=== PATIENT | female | born 1995 | race Caucasian/White ===

== ENCOUNTER → 2024-06-09 | Outpatient (CLI) | payer MEDICAID, SELFPAY ==
[2024-06-09 14:30] LABS: Protein, Urine (Random) 14.1 mg/dL (<11.9); Protein:Creat Ratio 84 mg/g CRE (0-200)
[2024-06-13 06:06] LABS: Chlamydia By Nucleic Acid AMP Negative (Negative); Gonococcus By Nucleic Acid AMP Negative (Negative)
== END | disposition home or self-care (01) ==
PROVIDERS: Visit Provider Advanced Practice Midwife
DX: O99.210 Obesity complicating pregnancy, unspecified trimester (principal); O26.899 Other specified pregnancy related conditions, unspecified trimester; R00.0 Tachycardia, unspecified; Z11.3 Encounter for screening for infections with a predominantly sexual mode of transmission; Z3A.00 Weeks of gestation of pregnancy not specified
CPT/HCPCS: 82570; 84156; 87086; 87491; 87591

== ENCOUNTER 2024-08-04 10:01 | Outpatient (CLI) | payer MEDICAID, SELFPAY ==
[2024-08-04 12:20] LABS: Absolute Lymphocyte Count 2.39 X10^3/uL (0.83-4.51); Absolute Neutrophil Count 7.2 X10^3/uL (2.0-7.7); Basophil# 0.04 X10^3/uL; Basophil% 0.4 % (0-1); Hematocrit 32.9 % (37-47); Hemoglobin 10.6 g/dL (12.0-15.0); Lymphocyte # 2.39 X10^3/ul (0.83-4.51); Lymphocyte % 22.8 % (19-41); Mean Corp Hgb Conc 32.2 g/dL (32-36); Mean Corpuscular Hgb 28.4 pg (27.0-32.0); Mean Corpuscular Volume 88.2 fL (81-99); Mean Platelet Vol. 10.4 fl (6.2-12.0); Monocyte# 0.79 X10^3/uL; Monocyte% 7.5 % (0-10); NRBC Flagged by Analyzer 0 % (0-5); Neutrophil # 7.15 X10^3/uL (2.7-7.7); Platelet Count 285 K/mm3 (150-450); RBC Distribution Width CV 14.4 % (11.6-14.6); RBC Distribution Width SD 46.3 fl (35.1-43.9); Red Blood Count 3.73 M/mm3 (4.2-5.4); White Blood Count 10.5 K/mm3 (4.4-11.0)
[2024-08-04 13:21] LABS: HIV Nonreactive (Nonreactive); Hepatitis B Surface Antigen Nonreactive (Nonreactive); Hepatitis C Antibody Nonreactive (Nonreactive); Rubella IgG REAC (Nonreactive); Syphilis Antibodies Nonreactive (Nonreactive)
[2024-08-04 13:27] LABS: ALB/GLOB Ratio 1.2 RATIO (0.9-2.4); AST(SGOT) 13 U/L (<=31); Alanine Aminotransfer ALT/SGPT 10 U/L (<=34); Albumin, Serum 3.6 g/dL (3.5-5.0); Alkaline Phosphatase 65 U/L (35-104); Anion Gap 12 (5-15); BUN 10 mg/dL (4-19); BUN/Creat Ratio 18.1 RATIO (10-20); Calcium,Total 8.9 mg/dL (7.6-11.0); Chloride 105 mmol/L (98-108); Creatinine, Serum 0.56 mg/dL (0.70-1.20); EST Glomerular Filtration Rate 127 (>60); Glucose 76 mg/dL (70-99); Hemoglobin A1c 5.5 % (<=5.6); Potassium 4.1 mmol/L (3.3-5.1); Protein, Total 6.6 g/dL (5.9-8.4); Sodium Level 137 mmol/L (133-145); Total Bilirubin < 0.15 mg/dL (0.00-1.30)
== END 2024-08-04 23:59 | disposition home or self-care (01) ==
LOC: BWCLAB 10:02
PROVIDERS: Referring Provider Advanced Practice Midwife; Visit Provider Advanced Practice Midwife
DX: O99.210 Obesity complicating pregnancy, unspecified trimester (principal); R00.0 Tachycardia, unspecified; Z3A.00 Weeks of gestation of pregnancy not specified
CPT/HCPCS: 36415; 80053; 83036; 85025; 86703; 86762; 86780; 86803; 86850; 86900; 86901; 87340

== ENCOUNTER 2024-08-29 13:40 | Outpatient (CLI) | payer MEDICAID, SELFPAY ==
--- NOTE | 2024-08-29 13:46 | US_ITS ---
PROCEDURE: OB LIMITED (NO BIOMETRICS) 08/29/2024 REASON FOR EXAM: BLEEDING History of low-lying placenta. TECHNIQUE: High resolution obstetric ultrasound performed using a 2D transducer. Standard views obtained, including biometry, anatomy survey, and Doppler studies. COMPARISON: None available. FINDINGS Number: 1 Position: Breech Placental Position: Posterior and not low-lying. Placental Abnormalities: No evidence of previa. ESTIMATED GESTATIONAL AGE: Baseline: 21 weeks and 3 days ESTIMATED DATE OF DELIVERY: Baseline: January 06, 2025 BIOPHYSICAL ASSESSMENT: Amniotic Fluid Volume: Normal. Amniotic Fluid Index: Within normal limits. (8-24 cm normal range) Cardiac Motion: 158 beats per minute (average) Trunk and Limb Motion: Present. US/OB Limited (No Biometrics) IMPRESSION: Posterior placenta and not low-lying. position is breech. Reading Location: [place] [id number]
[2024-08-29 13:51] VITALS: BMI 34.3
[2024-08-29 14:07] VITALS: BP 116/68; PULSE 83; RESP 16; TEMP 37.1
--- NOTE | 2024-08-29 14:36 | NURSING ---
Pt to US via wheelchair.
[2024-08-29 16:32] LABS: Bacteria 0 SEEN /hpf (None Seen); Mucous, Urine 0 SEEN /hpf (<or=2+)
[2024-08-29 17:01] LABS: Color, Urine Yellow (Yellow); Glucose, Dipstick Normal (Normal); Ketone-Dipstick Negative (Negative); Leukocyte Esterase-Dipstick 25 /ul (Negative); Nitrite-Dipstick Negative (Negative); Occult Blood-Urine 10 /ul (Negative); Protein-Dipstick Negative (Negative); Specific Gravity, Urine 1.005 (1.002-1.030); Urine Bilirubin Dipstick Negative (Negative); Urine Clarity Clear (Clear); Urine Urobilinogen Normal (Normal)
[2024-08-29 18:03] LABS: Squamous Epithelial Cells - UA 0-5 SEEN /hpf (5-10); White Blood Cells 0-5 SEEN /hpf (0-5)
--- NOTE | 2024-08-30 16:13 | OB.TRI.HP_ITS ---
HPI - General HPI Narrative AYE ZHANG, is a 29 F who presents with spotting in 21 weeks increase discharge some crmaping no fevers no uti symptoms no back pain feeling some movement. Maternal Data Information DOMONIQUE Calculator Estimated Delivery Date Method Current WG Current Estimate 01/06/25 LMP (Certain) 21w 4d PFSH PFSH Medical History Hx of abnormal cervical Pap smear Asthma Home Medications ?Medication ?Instructions ?Recorded ?Last Taken ?Type bupropion HCl 300 mg 24 hr tablet, 300 mg PO QAM 06/0908/27/24 07:00 History extended release (Wellbutrin XL) 300 m g metoprolol succinate 50 mg 50 mg PO QDAY 06/09/2407/31 07:00 History tablet,extended release 24 hr 50 mg multivit-min no.71-iron fum 28 1 cap PO DAILY 06/09/24 08/27/24 07:00 History mg-folate no.1 1 mg-dha 300 mg 1 cap capsule (PNV-[place]) Allergy/AdvReac Type Severity Reaction Status Date / Time morphine Allergy Intermediate Hives Verified 08/29/24 14:03 Family History Grandmother Cancer Maternal- Pancreatic ca Grandmother Breast cancer, Onset Age: 40 Paternal Mother Cancer, Onset Age: 30 cervical Surgical History H/O dilation and curettage H/O gastric sleeve History of surgical removal of ganglion cyst S/P tendon repair Social History adopted: No household members: significant other and children number of children: 3 current occupational status: employed 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 [employer] pets and animals: No history of recent travel: No sexually active: Yes Smoking Status: Never smoker alcohol intake: never substance use type: does not use well-balanced diet: daily or most days caffeine: No eating out: 1-3 times/week during the past year weight has: decreased > 10 lbs what type of physical activity do you participate in: none lupis/samaritan: None seatbelt use: sometimes do you feel safe at home: Yes additional social history: Boyfriend- Gretchen- Works at the [employer] History 4 Elective abortions Hx Para 3 Spontaneous abortions Hx # Term Pregnancies Ectopic pregnancies Hx # Pregnancies Multiple births # of living children 3 Past Pregnancies Del. Date Name GA/Weeks Outcome Route Bth Weight Infant Gen Labor Lgth Anesthesia Del Locatn Provider FOB 08/21/16 Layo 39 live - full term 9# Female epidural [facility] Dr. Aaron Almanza 05/05/19 [place] 39 live - full term 8#1oz Male none [facility] Dr. Castillo Almanza 06/06/20 Melissa 38 live - full term 9#6oz Male epidural [facility] Dr. Castillo Almanza Delivery Date: 05/05/19 Last Updated by: Christy Diaz shoulder dystocia Visit Details Expected Delivery Route/Plan Labor Preferences- CB/BF classes: [] labor support person: [] labor intervention preferences: [] pain management options preferred: [] cut cord/dad catch: [] : [] PP control planned: [] discussed possible routes of delivery and associated risks: [] special requests: [] Plans Covid status: [] Flu vaccine: [] Tdap vaccine: [] Rhogam: [] LARC form signed: [] Problem list reviewed and updated with the most current plan of care details and appropriate orders placed. Relevant counseling for the gestational age provided. Continue routine care and follow up unless otherwise noted in visit notes/problem list details OB Flowsheet Initial Weight: 203 lb Date -?-?-?-?-?-?-?-?-?-?-?-?- EGA Weight BP Urine Prot -?-?-?-?-?-?-?-?-?-?-?-?- Glucose FHR FuHt Pres Dilation -?-?-?-?-?-?-?-?-?-?-?-?- Effaced St Visit Note 06/09/24 -?-?-?-?-?-?-?-?-?-?-?-?- 9w 6d 203 lb (+0 oz) 111/73 -?-?-?-?-?-?-?-?-?-?-?-?- 175 -?-?-?-?-?-?-?-?-?-?-?-?- KW- CRL cons wit h dates. declines NIPT. on Metoprolol for elevated HR-sees cardiology PRN. 07/11/24 -?-?-?-?-?-?-?-?-?-?-?-?- 14w 3d 203 lb (+0 oz) 97/63 Negative -?-?-?-?-?-?-?-?-?-?-?-?- Negative 160 -?-?-?-?-?-?-?-?-?-?-?-?- JV- pt still nee ds new ob labs. states got them at Dr. Walker's office before she came to us. Has h/o shoulder dystocia so will need a hga1c. she will sign another ror form and if do not get it by next visit will need to do all labs a gain. no other complaints. declines nipt. anatomy scan ordered. 08/04/24 -?-?-?-?-?-?-?-?-?-?-?-?- 17w 6d 208 lb (+5 lb) 95/50 Negative -?-?-?-?-?-?-?-?-?-?-?-?- Negative 150 -?-?-?-?-?-?-?-?-?-?-?-?- SM- no vb lof go od fm no reuglar ctx SM- no vb no reuglar ctx ROS Constitutional Constitutional: Reports systems reviewed and no addt'l complaints, except as documented Gastrointestinal Gastrointestinal: Reports as per HPI Physical Exam Const alert, oriented x3 and no apparent distress HEENT Head and Scalp: normocephalic and atraumatic Neck full ROM and no lymphadenopathy Chest inspection of chest normal Resp normal respiratory effort GI GI Narrative: gravid, abdomen nontender, AGA Manual OB Exam: dilated, effaced and station NST FHR Rate Baby A Baseline: 140 Uterine Activity:: no regular Assessment & Plan (1) Spotting affecting : (2) Low lying placenta, antepartum: COMMENT: pelvic rest, US @ 28 wks (3) 21 weeks gestation of : PLAN: Plan rule out vaginal infection but cervical irritation seen, likely source of bleeding cervix closed Charges/Coding Multi Select Codes Visit Charges Office Visit/Consults: 14127 OV L3 Est 20min
== END 2024-08-29 17:55 | disposition home or self-care (01) ==
LOC: WPOUT 13:45 → WP 13:46
PROVIDERS: Referring Provider Obstetrics & Gynecology; Visit Provider Obstetrics & Gynecology
DX: O26.852 Spotting complicating pregnancy, second trimester (principal); O44.42 Low lying placenta NOS or without hemorrhage, second trimester; Z3A.21 21 weeks gestation of pregnancy; Z87.59 Personal history of other complications of pregnancy, childbirth and the puerperium
CPT/HCPCS: 59050; 76815; 81001; 87070; 87205; 99221; G0378

== ENCOUNTER → 2024-09-28 | Outpatient (CLI) | payer MEDICAID, SELFPAY ==
[2024-09-28 12:09] LABS: Absolute Lymphocyte Count 1.98 X10^3/uL (0.83-4.51); Absolute Neutrophil Count 5.9 X10^3/uL (2.0-7.7); Basophil# 0.03 X10^3/uL; Basophil% 0.3 % (0-1); Eosinophil# 0.07 X10^3/uL; Eosinophils% 0.8 % (0-5); Hematocrit 29.4 % (37-47); Hemoglobin 9.4 g/dL (12.0-15.0); Lymphocyte # 1.98 X10^3/ul (0.83-4.51); Lymphocyte % 22.8 % (19-41); Mean Corpuscular Hgb 28.8 pg (27.0-32.0); Mean Corpuscular Volume 90.2 fL (81-99); Mean Platelet Vol. 10.3 fl (6.2-12.0); Monocyte% 8.1 % (0-10); NRBC Flagged by Analyzer 0 % (0-5); Neutrophil # 5.86 X10^3/uL (2.7-7.7); Neutrophil % 67.5 % (47-70); Platelet Count 263 K/mm3 (150-450); RBC Distribution Width CV 13.8 % (11.6-14.6); RBC Distribution Width SD 45.5 fl (35.1-43.9); Red Blood Count 3.26 M/mm3 (4.2-5.4); White Blood Count 8.7 K/mm3 (4.4-11.0)
[2024-09-28 13:07] LABS: Glucose Challenge Gest 1H 50g 95 mg/dL (70-140); HIV Nonreactive (Nonreactive); Syphilis Antibodies Nonreactive (Nonreactive)
[2024-09-28 13:10] LABS: Ferritin 9 ng/mL (22-378); Iron 37 ug/dL (50-170); Iron Binding Capacity,Total 422 ug/dL (250-450); Iron Binding Capacity,Unsat 385 ug/dL (228-428)
== END | disposition home or self-care (01) ==
PROVIDERS: Nurse Practitioner Women's Health; Referring Provider Obstetrics & Gynecology; Visit Provider Obstetrics & Gynecology
DX: O99.012 Anemia complicating pregnancy, second trimester (principal); Z3A.00 Weeks of gestation of pregnancy not specified; Z13.1 Encounter for screening for diabetes mellitus
CPT/HCPCS: 36415; 82728; 82950; 83540; 83550; 85025; 86703; 86780

== ENCOUNTER → 2024-10-26 | Outpatient (CLI) | payer MEDICAID, SELFPAY ==
[2024-10-26 13:19] LABS: Ferritin 9 ng/mL (22-378); Iron 36 ug/dL (50-170); Iron Binding Capacity,Unsat 440 ug/dL (228-428); Vitamin B12 462 pg/mL (180-914)
[2024-10-26 20:10] LABS: Iron Binding Capacity,Total 476 ug/dL (250-450); PERCENT IRON SATURATION 7.6 % (13-59)
[2024-10-31 14:08] LABS: PARVOVIRUS B19 IGG 4.3 index (0.0-0.8); PARVOVIRUS B19 IGM 0.2 index (0.0-0.8)
== END | disposition home or self-care (01) ==
LOC: BWCLAB 10:15
PROVIDERS: Referring Provider Obstetrics & Gynecology; Visit Provider Obstetrics & Gynecology
DX: O99.019 Anemia complicating pregnancy, unspecified trimester (principal); Z3A.00 Weeks of gestation of pregnancy not specified; Z20.828 Contact with and (suspected) exposure to other viral communicable diseases; Z98.84 Bariatric surgery status
CPT/HCPCS: 36415; 82607; 82728; 83540; 83550; 86747

== ENCOUNTER 2024-11-10 10:32 | Outpatient (CLI) | payer MEDICAID, SELFPAY ==
[2024-11-10 10:43] VITALS: BP 116/55; PULSE 70; RESP 16; TEMP 35.7; O2SAT 100
[2024-11-10] MEDS: 0.9% NaCl IVPB Med Flush (100mL) 15 ML IV (10:53)
[2024-11-10] MEDS: 0.9% NaCl Peripheral Flush Adult IV (10:53)
[2024-11-10] MEDS: Iron Sucrose Complex 300 MG in 0.9% Normal Saline (250mL Bag) 250 ML 177 MG IV (10:55)
[2024-11-10 13:12] VITALS: BP 110/57; PULSE 74; RESP 16; TEMP 36.3; O2SAT 99
== END 2024-11-10 23:59 | disposition home or self-care (01) ==
LOC: MEDOUTP 10:33
PROVIDERS: Referring Provider Obstetrics & Gynecology; Visit Provider Obstetrics & Gynecology
DX: D64.9 Anemia, unspecified (principal)
CPT/HCPCS: 96365; 96366; J1756; A4216

== ENCOUNTER 2024-11-24 10:19 | Outpatient (CLI) | payer MEDICAID, SELFPAY ==
[2024-11-24 10:31] VITALS: BP 107/61; PULSE 73; RESP 16; TEMP 36.2; O2SAT 98
[2024-11-24] MEDS: 0.9% NaCl IVPB Med Flush (100mL) 15 ML IV (10:33)
[2024-11-24] MEDS: 0.9% NaCl Peripheral Flush Adult IV (10:33)
[2024-11-24] MEDS: Iron Sucrose Complex 300 MG in 0.9% Normal Saline (250mL Bag) 250 ML 177 MG IV (10:38)
[2024-11-24 12:32] VITALS: BP 98/63; PULSE 68; RESP 16
== END 2024-11-24 23:59 | disposition home or self-care (01) ==
LOC: MEDOUTP 10:19
PROVIDERS: Referring Provider Obstetrics & Gynecology; Visit Provider Obstetrics & Gynecology
DX: D64.9 Anemia, unspecified (principal)
CPT/HCPCS: 96365; 96366; J1756; A4216

== ENCOUNTER 2024-12-07 11:29 | Outpatient (CLI) | payer MEDICAID, SELFPAY ==
[2024-12-07 11:36] VITALS: BP 125/66; PULSE 80; RESP 16; TEMP 35.7; O2SAT 96; BMI 36.3
[2024-12-07] MEDS: 0.9% NaCl Peripheral Flush Adult IV (11:47)
[2024-12-07] MEDS: 0.9% NaCl IVPB Med Flush (100mL) 15 ML IV (11:48)
[2024-12-07] MEDS: Iron Sucrose Complex 300 MG in 0.9% Normal Saline (250mL Bag) 250 ML 177 MG IV (12:16)
[2024-12-07 14:02] VITALS: BP 102/55; PULSE 71; RESP 16; TEMP 36.9; O2SAT 99
--- OUTSIDE RECORDS SUMMARY | 2024-12-08 04:38 | XMS RPT_ITS | CCD ---
Author Organization [facility] Care Team Providers Care Customer Experience Associate Name Role Phone Norwich, Rosalba Unavailable Unavailable Lares, Lesvia D Unavailable Unavailable Oberhauser, Sierra Unavailable Unavailable Carlos A Polancorup Unavailable Unavailable Oberhauser, Sierra L Unavailable Unavailable Imtiaz, Lesvia D Unavailable Unavailable Oberhauser DO, Sierra Unavailable Unavailable Markos Polanco MD Unavailable Unavailable Castillo DO, Rosalba Unavailable Unavailable Oberhauser, Sierra L Unavailable Unavailable Imtiaz, Lesvia D Unavailable Unavailable Oberhauser, Sierra L Unavailable Unavailable Unavailable Oberhauser DO, Sierra Primary Care Provider Oberhauser, Sierra L Unavailable [phone] Prosper Renner Unavailable Unavailable Jacquelyn Walker Unavailable Leoncio Jean Baptiste Unavailable Unavailable Vi Ramachandran Unavailable Unavailable Oberhauser DO, Sierra Primary Care Provider OBERHAUSER, SIERRA Primary Care Unavailable ANTHONY YANEZ Admitting Unavailab le ANTHONY YANEZ Attending Unavailab le CASSIDY THOMAS Attending Unavailable CASSIDY THOMAS Referring Unavailable OBERHAUSER, SIERRA Primary Care Unavailable OBERHAUSER, SIERRA Primary Care Unavailable CASSIDY THOMAS Admitting Unavailable CASSIDY THOMAS Referring Unavailable OBERHAUSER, SIERRA Primary Care Unavailable CASSIDY THOMAS Attending Unavailable ANTHONY YANEZ Attending Unavailab le OBERHAUSER, SIERRA Primary Care Unavailable ANTHONY YANEZ Attending Unavailab le OBERHAUSER, SIERRA Primary Care Unavailable ANTHONY YANEZ Attending Unavailab le OBERHAUSER, SIERRA Primary Care Unavailable Oberhauser DO, Sierra L Primary Care Provider [phone] Oberhauser DO, Sierra L Unavailable [phone] Oberhauser DO, Sierra Primary Care Provider [phone] Oberhauser DO, Sierra Primary Care Provider [phone] Danielle, Dr. Sierra De León Primary Care Unava ilable JACQUELYN WALKER Referring Unavailable JACQUELYN WALKER Attending Unavailable Jimena Gracia Referring Unavailabl mariella FUENTES, TELETYPESETTER MONITOR, DNP ABDIAZIZ JUAN Attending Un available Oberhauser, Dr. Sierra De León Primary Care Unava ilable MD LEONCIO JEAN BAPTISTE Referring Unavailable MD LEONCIO JEAN BAPTISTE Attending Unavailable Oberhauser, Dr. Sierra De León Primary Care Unava ilable Oberhauser, Dr. Sierra De León Primary Care Unava ilable JACQUELYN WALKER Attending Unavailable Oberhauser DO, Sierra L Unavailable [phone] Oberhauser DO, Sierra Primary Care Provider [phone] Unavailable Primary Care Provider Unavailabl e JIMENA GRACIA Attending Unavailable OBERHAUSER, SIERRA Primary Care Unavailable JIMENA GRACIA Referring Unavailable JIMENA GRACIA Attending Unavailable OBERHAUSER, SIERRA Primary Care Unavailable JIMENA GRACIA Referring Unavailable OBERHAUSER, SIERRA Primary Care Unavailable SUZANNASYLI Erwin Attending Unavailable OBERHAUSER, SIERRA Referring Unavailable JIMENA GRACIA Attending Unavailable OBERHAUSER, SIERRA Primary Care Unavailable JIMENA GRACIA Referring Unavailable JIMENA GRACIA Attending Unavailable OBERHAUSER, SIERRA Primary Care Unavailable JIMENA GRACIA Referring Unavailable OBERHAUSER, SIERRA Primary Care Unavailable SELF, SELF Referring Unavailable JIMENA GRACIA Attending Unavailable OBERHAUSER, SIERRA Primary Care Unavailable JIMENA GRACIA Referring Unavailable JIMENA GRACIA Attending Unavailable JOSHUA AKERS Attending Unavailable OBERHAUSER, SIERRA Primary Care Unavailable JIMENA GRACIA Referring Unavailable JOSHUA AKERS Attending Unavailable OBERHAUSER, SIERRA Primary Care Unavailable SELF, SELF Referring Unavailable SUZANNA, SHAVONNE D Attending Unavailable OBERHAUSER, SIERRA Primary Care Unavailable OBERHAUSER, SIERRA Referring Unavailable JIMENA GRACIA Attending Unavailable OBERHAUSER, SIERRA Primary Care Unavailable JIMENA GRACIA Referring Unavailable JIMENA GRACIA Admitting Unavailable OBERHAUSER, SIERRA Primary Care Unavailable JIMENA GRACIA Attending Unavailable SELF, SELF Referring Unavailable SELF, SELF Referring Unavailable OBERHAUSER, SIERRA Primary Care Unavailable JIMENA GRACIA Attending Unavailable OBERHAUSER, SIERRA L Primary Care Unavailable OBERHAUSER, SIERRA L Primary Care Unavailable OBERHAUSER, SIERRA L Primary Care Unavailable OBERHAUSER, SIERRA L Primary Care Unavailable OBERHAUSER, SIERRA L Primary Care Unavailable VICK YOUSSEF Attending Unavailable OBERHAUSER, SIERRA L Attending Unavailable OBERHAUSER, SIERRA L Primary Care Unavailable JACQUELYN WALKER Attending Unavailable OBERHAUSER, SIERRA L Primary Care Unavailable OBERHAUSER, SIERRA L Attending Unavailable OBERHAUSER, SIERRA L Primary Care Unavailable JACQUELYN WALKER Attending Unavailable OBERHAUSER, SIERRA L Primary Care Unavailable Rosi Carr Attending Provider Unavailable Jocelyn Malcolm CNM Attending Provider [phone] Dr. Adelaida Burnett DO Attending Provider Dr. Isabel Luz MD Attending Provider [phone] NOT, DEFINED Primary Care Provider UnavailJocelyn Hunter CNM Referring Provider [phone] Care Physician, No Primary Primary Care Provider Unavailable Dr. Isabel Luz MD Referring Provider Jocelyn Malcolm CNM Attending Provider [phone] Dr. Isabel Luz MD Other Provider [phone] Veena SHAFFER-CLuisa Attending Provider [phone] Care Physician, No Primary Referring Provider Un available Dr. Adelaida Burnett DO Referring Provider Dr. Adelaida Burnett DO Attending Provider ADELAIDA DENNY Referring Unavailab le NO PRIMARY CARE, Primary Care Unavailable ALEX ELIZONDO Attending Unavailable ADELAIDA DENNY Referring Unavailab le JERE MCCLELLAN Attending Unavailable NO PRIMARY CARE, Primary Care Unavailable SAUL CHANCE Attending Unavailable NO PRIMARY CARE, MD Primary Care Unavailable ADELAIDA DENNY Referring Unavailab le NO PRIMARY CARE, Primary Care Unavailable ADELAIDA DENNY R Attending Unavailab le EDUIN, ADELAIDA R Referring Unavailab Jocelyn Russell Attending Unavailable Care Physician, No Primary Referring Unava ilable Care Physician, No Primary Primary Care Unava ilable Care Physician, No Primary Primary Care Unava ilable Kimberlye Marcelo, Adelaida Referring Unavailabl e Vande Velluda, Adelaida Attending UnavailJocelyn Hunter Attending Unavailable Isabel Luz Attending Unavailable Care Physician, No Primary Referring Unava ilable Care Physician, No Primary Primary Care Unava ilable Isabel Luz Referring Unavailable Isabel Luz Consulting Unavailable Isabel Luz Attending Unavailable Care Physician, No Primary Primary Care Unava ilable Rosi Carr Attending Unavailable Veena BAND TEACHER, Luisa Attending Unavailable Care Physician, No Primary Referring Unava ilable Care Physician, No Primary Primary Care Unava ilable Care Physician, No Primary Primary Care Unava ilable Kimberlye Marcelo, Adelaida Referring Unavailabl e Vande Velluda, Adelaida Attending Unavailabl Jocelyn Parker Attending Unavailable Jocelyn Malcolm Referring Unavailable NOT, DEFINED Primary Care Unavailable Isabel Luz Referring Unavailable Isabel Luz Attending Unavailable Care Physician, No Primary Primary Care Unava ilable Vande Velluda, Adelaida Attending Unavailabl e Sukh, Isabel Attending Unavailable Isabel Luz Referring Unavailable Care Physician, No Primary Primary Care Unava ilable Isabel Luz Referring Unavailable Isabel Luz Attending Unavailable Care Physician, No Primary Primary Care Unava ilable Care Physician, No Primary Primary Care Unava ilable Vande Velluda, Adelaida Attending Unavailabl e Vande Velde, Adelaida Referring Unavailabl e Care Physician, No Primary Primary Care Unava ilable Vande Velluda, Adelaida Attending Unavailabl e Kimberlye Marcelo, Adelaida Referring UnavailJocelyn Hunter Attending Unavailable Isabel Luz Attending Unavailable Care Physician, No Primary Primary Care Unava ilable Care Physician, No Primary Referring Unava ilable Veena BAND TEACHER, Luisa Attending Unavailable Isabel Luz Attending Unavailable Care Physician, No Primary Referring Unava ilable Care Physician, No Primary Primary Care Unava ilable Care Physician, No Primary Referring Unava ilable Care Physician, No Primary Primary Care Unava ilable Kimberlye Marcelo, Adelaida [facility] Allergies Allergy Classification Reported Allergen(s) Allergy Type Date of Onset Reaction(s) Facility (20 sources) Morphine; Translations: [morphine] Drug Allergy 2 Hives, Unknown [facility] (2 sources) bleach Wheezing [facility] Comment on above: bleach (1 source) Morphine Drug Allergy [address] [facility] Repository Medications Current Medications Medication Drug Class(es) Dates Sig (Normalized) Sig (Original) atomoxetine 80 mg oral capsule (12 sources) Norepinephrine Reuptake Inhibitor Start: 11-26-2023 End: 12-10-2023 take 1 capsule by mouth once daily atomoxetine (Strattera) 80 mg capsule Indications: Attention deficit hyperactivity disorder (ADHD), combined type Take 1 capsule (80 mg) by mouth once daily for 14 days. Swallow capsule whole; do not open. If opened accidentally, do not touch eyes; wash hands immediately (product is an eye irritant). 14 capsule 11/26/2023 Active Start: 09-24-2023 End: 11-26-2023 take 1 capsule by mouth twice daily atomoxetine (Strattera) 25 mg capsule Indications: Attention deficit hyperactivity disorder (ADHD), combined type Take 1 capsule (25 mg) by mouth 2 times a day. 60 capsule 11 09/24/2023 11/26/2023 Discontinued (Therapy completed) Start: 03-11-2023 End: 03-12-2023 take 1 capsule by mouth once daily 25 mg, Oral, DAILY, First dose on Thu03/11/23 at 1415, Until Discontinued Swallow capsules whole; do not open capsules. If opened accidentally, do not touch eyes; wash hands immediately (product is an ocular irritant). Post-op/Post-Proc Start: 01-22-2023 End: 03-12-2023 take 1 capsule by mouth twice daily atomoxetine 25 MG capsule Take 1 capsule by mouth Twice daily. 0 02/18/2023 Active [place]Glucose M[place] [facility] [place] Start: 10-26-2024 Blood-Glucose Meter (Accu[place] M[place] [facility] [place] .Route October 26, 2024 12:00am As directed check sugar levels (fasting) in the morning 24 hr buPROPion hydrochloride 300 mg extended release oral tablet (20 sources) Aminoketone Start: 06-09-2024 take 1 tablet by mouth once daily in the morning Bupropion Hcl (Wellbutrin Xl) 300 mg tablet extended release 24 hr Active 300 mg PO EVERY MORNING June 09, 2024 1:00am Start: 09-24-2023 take 1 tablet by anne-marie th once daily buPROPion XL (Wellbutrin XL) 300 mg 24 hr tablet Indications: Anxiety Take 1 tablet (300 mg) by mouth once daily. 30 tablet 11 09/24/2023 Active Start: 03-11-2023 End: 03-12-2023 take 300 mg by mouth once daily 300 mg, Oral, DAILY, F irst dose on Thu03/11/23 at 1800, Until Discontinued Do not crush, chew, or divide. Post-op/Post-Proc Start: 12-27-2021 buPROPion (WEL LBUTRIN XL) 300 MG 24 hr tablet Start: 05-23-2021 take 1 tablet by anne-marie th once daily buPROPion 300 MG tablet XL Take 1 tablet by mouth daily. 0 11/22/2021 Active Start: 05-23-2021 take 1 tablet by anne-marie th every twenty-four hours buPROPion HCl ER (XL) 150 MG Oral Tablet Extended Release 24 Hour Quantity: 30 Refills: 0 Ordered: 24-Jun-2021 DO Start : 23-May-2021 Complete take 1 tablet by anne-marie th every twenty-four hours buPROPion 300 mg/24 hours (XL) oral tablet, extended release ; 1 tab(s) orally every 24 hours Quantity: 0 Refills: 0 Ordered: 23-Nov-2021 Katina Rouse Generic Substitution Allowed cetirizine hydrochloride 10 mg oral tablet (4 sources) Histamine-1 Receptor Antagonist Start: 11-08-2022 take 1 tablet by mouth once daily cetirizine (ZyrTEC) 10 mg tablet Take 1 tablet (10 mg) by mouth once daily. 11/08/2022 Active dicyclomine hydrochloride 20 mg oral tablet (2 sources) Anticholinergic Start: 11-23-2021 take 1 tablet by mouth four times daily dicyclomine 20 mg oral tablet ; 1 tab(s) orally 4 times a day (1 hour before meals and at bedtime) Quantity: 20 Refills: 0 Ordered: 23-Nov-2021 Michelle Vasquez Start: 23-Nov-2021 Generic Substitution Allowed Comments: May cause drowsiness. Alcohol may intensify this effect. Use care when operating dangerous machinery. Comment on above: May cause drowsiness . Alcohol may intensify this effect. Use care when operating dangerous machinery. docusate sodium 100 mg oral capsule (2 sources) Start: 05-06-2019 take 6 capsules by mouth twice daily as needed docusate sodium 100 mg oral capsule ; 1 cap(s) orally 2 times a day, As needed, Stool Softening Quantity: 60 Refills: 0 Ordered: 06-May-2019 Rosalba Thomas Start: 06-May-2019 Status: Other Generic Substitution Allowed ferrous sulfate 325 mg oral tablet (2 sources) Start: 05-06-2019 take 1 tablet by mouth twice daily ferrous sulfate 325 mg (65 mg elemental iron) oral tablet ; 1 tab(s) orally 2 times a day Quantity: 60 Refills: 0 Ordered: 06-May-2019 Rosalba Thomas Start: 06-May-2019 Status: Other Generic Substitution Allowed ibuprofen 600 mg oral tablet (2 sources) Nonsteroidal Anti-inflammatory Drug Start: 05-06-2019 take 1 tablet by mouth every six hours ibuprofen 600 mg oral tablet ; 1 tab(s) orally every 6 hours as needed pain Quantity: 40 Refills: 0 Ordered: 06-May-2019 Rosalba Thomas Start: 06-May-2019 Status: Other Generic Substitution Allowed lisdexamfetamine dimesylate 40 mg oral capsule (2 sources) Central Nervous System Stimulant Start: 02-24-2024 take 1 capsule by mouth once daily in the morning lisdexamfetamine (Vyvanse) 40 mg capsule Indications: Attention deficit hyperactivity disorder (ADHD), combined type Take 1 capsule (40 mg) by mouth once daily in the morning. 30 capsule 02/24/2024 Active Start: 01-12-2024 End: 03-09-2024 take 1 capsule by mouth once daily in the morning lisdexamfetamine (Vyvanse) 30 mg capsule Indications: Attention deficit hyperactivity disorder (ADHD), combined type Take 1 capsule (30 mg) by mouth once daily in the morning. 30 capsule 01/12/2024 03/09/2024 Discontinued (Therapy completed) Magnesium Oxide (2 sources) take 1 tablet by mouth once daily magnesium oxide ; 1 tab(s) orally once a day Quantity: 0 Refills: 0 Ordered: 07-Mar-2019 Adelaida Bell Status: Discontinued Generic Substitution Allowed 24 hr metoprolol succinate 50 mg extended release oral tablet (20 sources) beta-Adrenergic Katelyn Start: 06-09-2024 take 1 tablet by mouth once daily Metoprolol Succinate 50 mg tablet extended release 24 hr Active 50 mg PO daily June 09, 2024 1:00am Start: 11-26-2023 take 1 tablet by anne-marie th once daily metoprolol succinate XL (Toprol-XL) 50 mg 24 hr tablet Indications: Anxiety Take 1 tablet (50 mg) by mouth once daily. 90 tablet 3 11/26/2023 Active Start: 11-22-2021 metoprolol suc cinate (TOPROL-XL) 50 MG 24 hr tablet Start: 03-20-2020 End: 03-12-2023 take 1 tablet by mouth once daily metoprolol succinate XL (Toprol-XL) 50 mg 24 hr tablet Indications: Anxiety Take 1 tablet (50 mg) by mouth once daily. 90 tablet 3 11/26/2023 Active Misc. Devices Misc (6 sources) Mv-Mins 02-Fdoh-Nznia No.1-D catalan (Pnv-Dudley) 28-1-300 mg capsule (8 sources) Start: 06-09-2024 Mv-Mins 71-Iro n-Folic No.1-Dha (Pnv-Dudley) 28-1-300 mg capsule Active 1 NMA PO DAILY June 09, 2024 1:00am Start: 06-09-2024 Mv-Mins 71-Iro n-Folic No.1-Dha (Pnv-Dudley) 28-1-300 mg capsule Active NMA PO June 09, 2024 1:00am omeprazole 40 mg delayed release oral capsule (20 sources) Proton Pump Inhibitor Start: 11-28-2021 omeprazole (PriLOSEC) [address] capsule 11/28/2021 Active Multivitamins oral capsule (4 sources) take 1 capsule by mouth once daily Multivitamins oral capsule ; 1 cap(s) orally once a day Quantity: 0 Refills: 0 Ordered: 07-Mar-2019 Adelaida Bell Status: Other Generic Substitution Allowed take 1 capsule by mouth once rich ly Multivitamins oral capsule ; 1 each orally once a day Quantity: 0 Refills: 0 Ordered: 06-Jun-2020 Frieda Larsen Status: Other Generic Substitution Allowed Completed/Discontinued Medications Medication Drug Class(es) Dates Sig (Normalized) Sig (Original) acetaminophen 32 mg/ml oral solution (4 sources) Start: 03-11-2023 End: 03-12-2023 take 650 mg by mouth every six hours 650 mg, Oral, EVERY 6 HOURS NON-STANDARD, First dose on Thu03/11/23 at 1700, Until Discontinued Maximum dose of acetaminophen is 4000 mg from all sources in 24 hours. Post-op/Post-Proc Start: 03-11-2023 End: 03-11-2023 acetaminophen (TYLENOL) tabl et 1,000 mg take 2 tablets by mo uth every six hours Tylenol 500 mg oral tablet ; 2 tab(s) orally every 6 hours Quantity: 0 Refills: 0 Ordered: 03-May-2019 Katharine Downey Status: Discontinued Generic Substitution Allowed [id number] 200 actuat albuterol 0.09 mg/actuat metered dose inhaler (13 sources) beta2-Adrenergic Agonist Start: 06-09-2024 End: 08-29-2024 Albuterol Sulfate 90 mcg/actuation HFA aerosol inhaler Discontinued 2 NMA INHALATION EVERY 6 HOURS as needed June 09, 2024 1:00am August 29, 2024 2:03pm Start: 05-22-2022 End: 03-09-2024 take 1-2 puff(s) by mouth four times daily as needed for cough albuterol 90 mcg/actuation inhaler INHALE 1 TO 2 PUFFS BY MOUTH 4 TIMES DAILY NEEDED FOR WHEEZING FOR COUGH 05/22/2022 03/09/2024 Discontinued (Therapy completed) amoxicillin 875 mg oral tablet (2 sources) Penicillin-class Antibacterial Start: 08-17-2019 End: 08-26-2019 take 1 tablet by mouth twice daily amoxicillin 875 mg oral tablet ; 1 tab(s) orally 2 times a day Quantity: 20 Refills: 0 Ordered: 17-Aug-2019 Blanca Sidhu Start: 17-Aug-2019 End: 26-Aug-2019 Status: Other Generic Substitution Allowed Comments: Finish all this medication unless otherwise directed by prescriber. Comment on above: Finish all this medi cation unless otherwise directed by prescriber. aspirin 81 mg delayed release oral tablet (6 sources) Platelet Aggregation Inhibitor, Nonsteroidal Anti-inflammatory Drug Start: 11-07-2019 take 2 tablets by mouth once daily Aspirin 81 MG Oral Tablet Delayed Release TAKE 2 TABLET Daily Quantity: 60 Refills: 11 Rosalba Thomas DO Start : 07-Nov-2019 Active take 1 tablet by mouth once joni y Aspirin Low Dose 81 mg oral tablet, chewable ; 1 tab(s) orally once a day Quantity: 0 Refills: 0 Ordered: 07-Mar-2019 Adelaida Bell Status: Discontinued Generic Substitution Allowed busPIRone hydrochloride 10 mg oral tablet (6 sources) Start: 09-11-2020 End: 02-28-2021 take 1-2 tablets by mouth three times daily as needed for anxiety busPIRone HCl - 10 MG Oral Tablet TAKE 1-2 tabs by mouth po TID prn anxiety Quantity: 90 Refills: 3 Ordered: 11-Sep-2020 Sierra Santos DO Start : 11-Sep-2020 End : 28-Feb-2021 Complete calcium chloride 0.0014 meq/ml / potassium chloride 0.004 meq/ml / sodium chloride 0.103 meq/ml / sodium lactate 0.028 meq/ml injectable solution (1 source) Start: 03-11-2023 End: 03-11-2023 Lactated ringers IV solution cephalexin 500 mg oral capsule (4 sources) Cephalosporin Antibacterial Start: 11-04-2019 End: 11-08-2019 take 1 capsule by mouth twice daily Keflex 500 mg oral capsule ; 1 cap(s) orally 2 times a day x 5 days Quantity: 10 Refills: 0 Ordered: 04-Nov-2019 Moronald Chris I Start: 04-Nov-2019 End: 08-Nov-2019 Status: Other Generic Substitution Allowed Comments: Finish all this medication unless otherwise directed by prescriber. Comment on above: Finish all this medi cation unless otherwise directed by prescriber. cyclobenzaprine hydrochloride 10 mg oral tablet (3 sources) Muscle Relaxant Start: 02-28-2021 End: 05-23-2021 take 1 tablet by mouth three times daily as needed Cyclobenzaprine HCl - 10 MG Oral Tablet TAKE 1 TABLET 3 TIMES DAILY NEEDED. Quantity: 30 Refills: 0 Ordered: 28-Feb-2021 Stephaniebetina ANDREWValentino Start : 28-Feb-2021 End : 23-May-2021 Complete 1 ml diphenhydrAMINE hydrochloride 50 mg/ml cartridge (1 source) Histamine-1 Receptor Antagonist Start: 03-11-2023 End: 03-12-2023 take 25-50 mg intravenously every four hours as needed 25-50 mg, Intravenous, EVERY 4 HOURS NEEDED, Starting on Thu03/11/23 at 1401, Until Misty 03/12/23 at 1652, Itching, Sleep, insomnia, Post-op/Post-Proc 2 ml enalaprilat 1.25 mg/ml injection (1 source) Angiotensin Converting Enzyme Inhibitor Start: 03-11-2023 End: 03-12-2023 take 1.25 mg intravenously every six hours as needed 1.25 mg, Intravenous, EVERY 6 HOURS NEEDED, Starting on Thu03/11/23 at 1401, Until Thu03/12/23 at 1652, for SBP greater than 150 mm/Hg, Post-op/Post-Proc 0.4 ml enoxaparin sodium 100 mg/ml prefilled syringe (1 source) Low Molecular Weight Heparin Start: 03-12-2023 End: 03-12-2023 inject 40 mg by subcutaneous injection every twelve hours 40 mg, Subcutaneous, EVERY 12 HOURS, First dose on Misty 03/12/23 at 0900, Until Discontinued, Indications: DVT/PE prophylaxis, Post-op/Post-Proc 21 day ethinyl estradiol 0.001780 mg/hr / etonogestrel 0.005 mg/hr vaginal ring (1 source) Progestin, Estrogen Start: 06-22-2019 Etonogestrel-Ethin yl Estradiol 0.12-0.015 MG/24HR Vaginal Ring INSERT 1 RING VAGINALLY FOR 3 WEEKS THEN 1 WEEK OFF. Quantity: 1 Refills: 11 Rosalba Thomas DO Start : 22-Jun-2019 Active famotidine 20 mg oral tablet (10 sources) Histamine-2 Receptor Antagonist Start: 03-21-2021 End: 03-12-2023 take 1 tablet by mouth twice daily faMOTIdine 20 MG tablet Take 1 tablet by mouth 2 times daily. 60 tablet 3 03/21/2021 03/12/2023 Discontinued (Stop Taking at Discharge) 120 actuat fluticasone propionate 0.11 mg/actuat metered dose inhaler (2 sources) Corticosteroid Start: 05-22-2022 End: 01-22-2023 take 1-2 puff(s) by mouth twice daily Flovent HFA 110 mcg/actuation inhaler INHALE 1 TO 2 PUFFS BY MOUTH TWICE DAILY RINSE AND SPIT AFTER USE, TAKES 2-3 DAYS TO WORK 0 05/22/2022 01/22/2023 Discontinued (Therapy completed) gabapentin 300 mg oral capsule (1 source) Anti-epileptic Agent Start: 03-11-2023 End: 03-11-2023 Gabapentin (NEURONTIN) capsule 600 mg 1 ml heparin sodium, porcine 5000 unt/ml prefilled syringe (1 source) Unfractionated Heparin, Anti-coagulant Start: 03-11-2023 End: 03-11-2023 Heparin injection 5,000 Units hydrocortisone acetate 25 mg rectal suppository (4 sources) Corticosteroid Start: 10-25-2020 End: 02-28-2021 Hydrocortisone Acetate 25 MG Rectal Suppository INSERT 1 SUPPOSITORY RECTALLY AT BEDTIME NEEDED. Quantity: 14 Refills: 1 Ordered: 25-Oct-2020 Lucho Livingston DO Start : 25-Oct-2020 End : 28-Feb-2021 Complete 1 ml HYDROmorphone hydrochloride 1 mg/ml cartridge (1 source) Opioid Agonist Start: 03-11-2023 End: 03-12-2023 take 0.5 mg intravenously every four hours as needed 0.5 mg, Intravenous, EVERY 4 HOURS NEEDED, Starting on Thu03/11/23 at 1401, Until Thu03/12/23 at 1652, Other, Increase in reported pain to moderate or severe between available doses of PO oxycodone, Post-op/Post-Proc 1 ml ketorolac tromethamine 15 mg/ml cartridge (1 source) Nonsteroidal Anti-inflammatory Drug, Cyclooxygenase Inhibitor Start: 03-11-2023 End: 03-12-2023 take 15 mg intravenously every six hours 15 mg, Intravenous, EVERY 6 HOURS NON-STANDARD, 8 doses, First dose on Thu03/11/23 at 1430, Last dose on Thu03/13/23 at 0830, Post-op/Post-Proc Lactated ringers 1,000 mL with Potassium chloride 20 mEq IV solution (1 source) Start: 03-11-2023 End: 03-12-2023 Intravenous, CONTINUOUS, Starting on Thu03/11/23 at 1430, Until Misty 03/12/23 at 1652, Post-op/Post-Proc metroNIDAZOLE 500 mg oral tablet (2 sources) Nitroimidazole Antimicrobial Start: 08-17-2019 End: 08-26-2019 take 1 tablet by mouth every six hours metroNIDAZOLE 500 mg oral tablet ; 1 tab(s) orally every 6 hours Quantity: 40 Refills: 0 Ordered: 17-Aug-2019 Blanca Sidhu Start: 17-Aug-2019 End: 26-Aug-2019 Status: Other Generic Substitution Allowed Comments: Do not drink alcoholic beverages when taking this medication.Finish all this medication unless otherwise directed by prescriber.May discolor urine or feces. Comment on above: Do not drink alcohol ic beverages when taking this medication.Finish all this medication unless otherwise directed by prescriber.May discolor urine or feces. 2 ml ondansetron 2 mg/ml injection (7 sources) Serotonin-3 Receptor Antagonist Start: 03-11-2023 End: 03-12-2023 take 4 mg intravenously every six hours 4 mg, Intravenous, EVERY 6 HOURS NON-STANDARD, First dose on Thu03/11/23 at 2000, Until Discontinued, Post-op/Post-Proc Start: 02-19-2023 take 1 tablet by anne-marie th every eight hours as needed Ondansetron 4 MG Tab Dispersible tablet Take 1 tablet by mouth every 8 hours as needed. 30 tablet 2 02/19/2023 Active Start: 11-23-2021 take 1 tablet by anne-marie th every six hours ondansetron 8 mg oral tablet, disintegrating ; 1 tab(s) orally every 6 hours Quantity: 12 Refills: 0 Ordered: 23-Nov-2021 Micehlle Vasquez Start: 23-Nov-2021 Generic Substitution Allowed oxyCODONE hydrochloride 5 mg oral tablet (5 sources) Opioid Agonist Start: 03-11-2023 End: 03-12-2023 take 5 mg by mouth every four hours as needed oxyCODONE (ROXICODONE) oral solution 5 mg Start: 02-19-2023 End: 02-25-2023 take 5 mL by mouth every six hours as needed oxyCODONE 5 MG/5ML Solution oral solution Indications: Morbid obesity with body mass index of 50 or higher , Essential hypertension Take 5 mL by mouth every 6 hours as needed for up to 6 days. 120 mL 0 02/19/2023 Active pantoprazole 40 mg injection (1 source) Proton Pump Inhibitor Start: 03-11-2023 End: 03-12-2023 40 mg, Intravenous, DAILY, First dose on Thu03/11/23 at 1415, Until Discontinued Dilute each 40 mg vial with 10 mL of NS. All bolus doses, whether 40 mg or 80 mg, should be administered over at least two minutes. Indications: Inpt Stress Ulcer Prophylaxis, Post-op/Post-Proc polyethylene glycol 3350 07928 mg powder for oral solution (4 sources) Osmotic Laxative Start: 10-25-2020 End: 02-28-2021 Polyethylene Glycol 3350 17 GM/SCOOP Oral Powder 17 g q. Thursday and evening, mixed with 8 ounces of juice or water Quantity: 1 Refills: 3 Ordered: 25-Oct-2020 Lucho Livingston DO Start : 25-Oct-2020 End : 28-Feb-2021 Complete TABS (2 sources) TABS Re fills: 0 Active Promethazine (PHENERGAN) 12.5 mg in Sodium chloride 0.9%, with overfill 60.5 mL (total volume) IVPB (1 source) Start: 03-11-2023 End: 03-12-2023 take 12.5 mg intravenously every six hours as needed 12.5 mg, Intravenous, at 121-242 mL/hr, Administer over 15-30 Minutes, EVERY 6 HOURS NEEDED, Starting on Thu03/11/23 at 1401, Until Misty 03/12/23 at 1652, Other, Nausea/Vomiting (2nd Line) Extravasation Risk Post-op/Post-Proc terconazole 4 mg/ml vaginal cream (6 sources) Azole Antifungal Start: 09-02-2024 End: 09-09-2024 Terconazole 0.4 % cream Discontinued 1 NMA VAGINAL AT BEDTIME 45 7 September 02, 2024 12:00am September 08, 2024 12:00am September 09, 2024 12:09am tiZANidine 4 mg oral tablet (20 sources) Central alpha-2 Adrenergic Agonist Start: 01-31-2022 take 2 tablets by mouth three times daily tiZANidine HCl - 4 MG Oral Tablet Take 2 tablets three times a day Quantity: 168 Refills: 1 Ordered: 05-Mar-2022 José LuisSierra norton DO Start : 31-Jan-2022 Active Start: 09-03-2021 tiZANidine 4 M G tablet Take 1 tablet by mouth as needed. 0 09/03/2021 Active take 1 capsule by mo [facility] once daily tiZANidine (Zanaflex) 4 mg capsule Take 1 capsule (4 mg) by mouth once daily. Active tiZANidine HCl - 4 MG Oral Tablet Quantity: 0 Refills: 0 Ordered: 05-Dec-2021 DO Active take 1 tablet by anne-marie once daily as needed tiZANidine 4 mg oral tablet ; 1 tab(s) orally once a day, As Needed Quantity: 0 Refills: 0 Ordered: 23-Nov-2021 Katina Rouse Generic Substitution Allowed traMADol hydrochloride 50 mg oral tablet (3 sources) Opioid Agonist Start: 02-28-2021 End: 05-23-2021 take 1 tablet by mouth every four to six hours as needed for pain traMADol HCl - 50 MG Oral Tablet TAKE 1 TABLET EVERY 4 TO 6 HOURS NEEDED FOR PAIN. Quantity: 24 Refills: 0 Ordered: 28-Feb-2021 Valentino Monroy PA-C Start : 28-Feb-2021 End : 23-May-2021 Complete M54.5 Problems Active Problems Problem Classification Problem Date Documented Da te Episodic/Chronic Abdominal pain (4 sources) Abdominal pain; Translations: [Abdominal pain, unspecified site] Onset: 4 11-23-2021 Episodic Allergic reactions (2 sources) Skin irritation 12-12-2021 Episodic Comment on above: SKIN IRRITATION Anxiety disorders (20 sources) Anxiety; Translations: [Anxiety state, unspecified] Onset: 3 Chronic Attention-deficit, conduct, and disruptive behavior disorders (7 sources) Attention deficit hyperactivity disorder, combined type; Translations: [Attention-deficit hyperactivity disorder, combined type] Onset: 3 01-22-2023 Chronic Cardiac dysrhythmias (1 source) Inappropriate sinus tachycardia; Translations: [Inappropriate sinus tachycardia] Chronic Cardiac dysrhythmias (20 sources) Inappropriate sinus tachycardia; Translations: [Other specified cardiac dysrhythmias] Onset: 1 Episodic Comment on above: sees cardiology. on Metoprolol Deficiency and other anemia (20 sources) Anemia; Translations: [Anemia, unspecified] Episodic Deficiency and other anemia (1 source) Anemia, unspecified; Translations: [Anemia, unspecified] Onset: 5 Episodic Esophageal disorders (20 sources) Gastroesophageal reflux disease; Translations: [Gastro-esophageal reflux disease without esophagitis] Onset: 1 Chronic Essential hypertension (20 sources) Essential hypertension; Translations: [Essential (primary) hypertension] Onset: 1 Chronic Gastrointestinal hemorrhage (20 sources) Melena; Translations: [Blood in stool] Episodic Genitourinary symptoms and ill-defined conditions (2 sources) Hematuria, unspecified; Translations: [Hematuria, unspecified] Onset: 4 Episodic Headache; including migraine (2 sources) Morning headache; Translations: [Morning headache] Episodic Hemorrhage during ; abruptio placenta; placenta previa (20 sources) Low lying placenta; Translations: [Low lying placenta NOS or without hemorrhage, unspecified trimester] Onset: 5 08-17-2024 Episodic Comment on above: pelvic rest, US @ 28 wks pelvic rest, US @ 28 wks. resolved. Immunizations and screening for infectious disease (20 sources) Patient encounter status; Translations: [Screening examination for venereal disease] Onset: 7 Episodic Comment on above: 12/05/2019-NIL2016-NEGATIVE; Malaise and fatigue (3 sources) Fatigue; Translations: [Other fatigue] Episodic Menstrual disorders (4 sources) Amenorrhea, unspecified; Translations: [Amenorrhea, unspecified] Onset: 4 Chronic Miscellaneous mental health disorders (6 sources) Binge eating disorder; Translations: [Binge eating disorder] Onset: 3 Chronic Other complications of (20 sources) Maternal obesity complicating , childbirth and the puerperium, antepartum; Translations: [Obesity complicating , unspecified trimester] 06-09-2024 Chronic Comment on above: HgbA1c Other complications of (20 sources) Anemia of ; Translations: [Anemia complicating , unspecified trimester] 10-26-2024 Chronic Comment on above: add fe iv venofer Other complications of (1 source) Anemia complicating , unspecified trimester; Translations: [Anemia complicating , unspecified trimester] Onset: 5 Chronic Other complications of (1 source) Anemia complicating , second trimester; Translations: [Anemia complicating , second trimester] Onset: 5 Chronic Other complications of (1 source) Obesity complicating , second trimester; Translations: [Obesity complicating , second trimester] Onset: 5 Chronic Other complications of (1 source) Obesity complicating , unspecified trimester; Translations: [Obesity complicating , unspecified trimester] Onset: 5 Chronic Other complications of (2 sources) Supervision of other high risk pregnancies, first trimester; Translations: [Prior complicated by PIH, antepartum, first trimester] Episodic Other complications of (20 sources) High risk ; Translations: [Supervision of high risk , unspecified, unspecified trimester] 08-04-2024 Episodic Comment on above: PRR, , DOMONIQUE 5, PC Rolando Vasques Rowan BF Jyothi Other complications of (20 sources) History of shoulder dystocia; Translations: [Supervision of with other poor reproductive or obstetric history, unspecified trimester] 06-09-2024 Episodic Comment on above: 2nd 2nd 8 lbs, had other bigger babies. that was an IOL. mild Other complications of (18 sources) Spotting per vagina in ; Translations: [Spotting complicating , unspecified trimester] 09-28-2024 Episodic Other complications of (1 source) Supervision of high risk , unspecified, second trimester; Translations: [Supervision of high risk , unspecified, second trimester] Onset: 5 Episodic Other complications of (1 source) Supervision of with other poor reproductive or obstetric history, unspecified trimester; Translations: [Supervision of with other poor reproductive or obstetric history, unspecified trimester] Onset: 5 Episodic Other complications of (1 source) Spotting complicating , unspecified trimester; Translations: [Spotting complicating , unspecified trimester] Onset: 5 Episodic Other complications of (1 source) Spotting complicating , second trimester; Translations: [Spotting complicating , second trimester] Onset: 5 Episodic Other connective tissue disease (20 sources) Ganglion cyst; Translations: [Ganglion, unspecified] Onset: 2 Episodic Other connective tissue disease (2 sources) Ganglion, unspecified site; Translations: [Ganglion, unspecified site] Onset: 2 Episodic Other endocrine disorders (4 sources) Menarche; Translations: [History of Menarche] Chronic Other endocrine disorders (20 sources) Polycystic ovary syndrome; Translations: [Polycystic ovarian syndrome] Onset: 1 Chronic Other gastrointestinal disorders (20 sources) Tenesmus; Translations: [Other symptoms involving digestive system] Episodic Other gastrointestinal disorders (12 sources) Diarrhea; Translations: [Diarrhea] 11-23-2021 Episodic Comment on above: DIARRHEA Other gastrointestinal disorders (20 sources) History of bariatric surgical procedure; Translations: [Bariatric surgery status] 09-30-2024 Episodic Comment on above: sleeve 03/23. Growth scan every 4 weeks. Other gastrointestinal disorders (1 source) Bariatric surgery status; Translations: [Bariatric surgery status] Onset: 5 Episodic Other lower respiratory disease (20 sources) Dyspnea on exertion; Translations: [Shortness of breath] Episodic Other lower respiratory disease (2 sources) Snoring; Translations: [Snoring] Episodic Other nutritional; endocrine; and metabolic disorders (20 sources) Body mass index 40+ - severely obese; Translations: [Morbid obesity] Chronic Other nutritional; endocrine; and metabolic disorders (20 sources) Morbid obesity; Translations: [Morbid obesity] Onset: 1 Chronic Other nutritional; endocrine; and metabolic disorders (4 sources) Morbid (severe) obesity due to excess calories; Translations: [Morbid (severe) obesity due to excess calories] Onset: 1 Chronic Other and delivery including normal (20 sources) care status; Translations: [Delivery normal] 08-17-2024 Episodic Comment on above: 06/06/2020; 39 WEEKS; MALE; 9LBS 5OZ05/05/2019; 39 WEEKS; MALE; 8LBS 1OZ; declined NIPT & Bazan ier testing, nl anatomy Other skin disorders (1 source) Loss of hair; Translations: [Nonscarring hair loss, unspecified] 09-25-2022 Episodic Residual codes; unclassified (3 sources) Sleep apnea; Translations: [Sleep apnea, unspecified] Chronic Residual codes; unclassified (2 sources) Hypersomnia; Translations: [Hypersomnia, unspecified] Chronic Residual codes; unclassified (3 sources) Obstructive sleep apnea syndrome; Translations: [Obstructive sleep apnea (adult) (pediatric)] Onset: 3 Chronic Residual codes; unclassified (1 source) Hypoxia; Translations: [Idiopathic sleep related nonobstructive alveolar hypoventilation] Chronic Residual codes; unclassified (2 sources) Obstructive sleep apnea (adult) (pediatric); Translations: [Obstructive sleep apnea (adult) (pediatric)] Onset: 3 Chronic Residual codes; unclassified (2 sources) Idiopathic sleep related nonobstructive alveolar hypoventilation; Translations: [Idiopathic sleep related nonobstructive alveolar hypoventilation] Onset: 3 Chronic Residual codes; unclassified (1 source) H/O: ; Translations: [History of ] Episodic Residual codes; unclassified (20 sources) H/O: miscarriage; Translations: [Personal history of other genital system and obstetric disorders] Episodic Comment on above: 09/2016; Residual codes; unclassified (1 source) Unprotected sexual intercourse; Translations: [Unprotected sex] Episodic Residual codes; unclassified (1 source) Gestation period, 17 weeks; Translations: [17 weeks gestation of ] Episodic Residual codes; unclassified (14 sources) At risk of breast cancer; Translations: [Other specified personal history presenting hazards to health] Episodic Comment on above: Tyrer-Cuzick score 2 9.2% on Myriad test 08/02/18. Genetics negative though; Residual codes; unclassified (2 sources) Insomnia; Translations: [Insomnia, unspecified] Episodic Residual codes; unclassified (2 sources) Other specified postprocedural states; Translations: [Other specified postprocedural states] Onset: 2 Episodic Residual codes; unclassified (2 sources) Pain, unspecified; Translations: [Pain, unspecified] Onset: 2 Episodic Residual codes; unclassified (2 sources) Pain Onset: 2 Episodic Residual codes; unclassified (14 sources) History of sleeve gastrectomy; Translations: [Acquired absence of stomach [part of]] Onset: 3 03-12-2023 Episodic Comment on above: 03/2023 Residual codes; unclassified (4 sources) Less than 8 weeks gestation of ; Translations: [Less than 8 weeks gestation of ([facility])] Onset: 4 Episodic Residual codes; unclassified (20 sources) Family history of breast cancer; Translations: [Family history of malignant neoplasm of breast] 06-09-2024 Episodic Comment on above: Paternal Grandmother Residual codes; unclassified (20 sources) Family history of malignant neoplasm of cervix uteri; Translations: [Family history of malignant neoplasm of other genital organs] 06-09-2024 Episodic Comment on above: Mother at 30yo-hyste rectomy Residual codes; unclassified (18 sources) Gestation period, 21 weeks; Translations: [21 weeks gestation of ] 09-28-2024 Episodic Residual codes; unclassified (1 source) 31 weeks gestation of ; Translations: [31 weeks gestation of ] Onset: 5 Episodic Residual codes; unclassified (1 source) 29 weeks gestation of ; Translations: [29 weeks gestation of ] Onset: 5 Episodic Residual codes; unclassified (1 source) 21 weeks gestation of ; Translations: [21 weeks gestation of ] Onset: 5 Episodic Spondylosis; intervertebral disc disorders; other back problems (20 sources) Low back pain; Translations: [Lumbago] Episodic Unclassified (2 sources) SHARP STOMACH PAIN, SEVERE DIARRHEA 11-23-2021 Comment on above: SHARP STOMACH PAIN, SEVERE DIARRHEA Unclassified (1 source) BARIATRIC PREOP CLEARANCE 10-22-2021 Comment on above: BARIATRIC PREOP IRAIS RYAN Unclassified (1 source) Diarrhea, unspecified 11-23-2021 Unclassified (2 sources) New Patient; Translations: [New Patient] Onset: 3 Urinary tract infections (2 sources) Urinary tract infection, site not specified; Translations: [Urinary tract infection, site not specified] Onset: Episodic Viral infection (20 sources) Other specified viral infection; Translations: [Disease caused by 2019-nCoV] Episodic Past or Other Problems Problem Classification Problem Date Documented Da te Episodic/Chronic Administrative/social admission (5 sources) Multigravida; Translations: [Administrative reason for encounter] Onset: 10-30-2022 Episodic Other complications of (1 source) Supervision of high risk , unspecified, unspecified trimester; Translations: [Supervision of high risk , unspecified, unspecified trimester] Onset: 08-31-2024 Episodic Other non-traumatic joint disorders (19 sources) Hip pain; Translations: [Pain in right hip] Onset: 12-28-2020 Episodic Other nutritional; endocrine; and metabolic disorders (4 sources) Overweight; Translations: [Overweight] Onset: 10-30-2022 Episodic Other nutritional; endocrine; and metabolic disorders (1 source) Overweight; Translations: [Overweight] Onset: 10-30-2022 Episodic Other screening for suspected conditions (not mental disorders or infectious disease) (20 sources) Cancer cervix screening status; Translations: [Screening for malignant neoplasms of cervix] Onset: 12-01-2022 Episodic Polyhydramnios and other problems of amniotic cavity (1 source) Subchorionic hematoma; Translations: [Subchorionic hemorrhage in first trimester] Episodic Residual codes; unclassified (1 source) Gestation period, 12 weeks; Translations: [12 weeks gestation of ] Episodic Residual codes; unclassified (1 source) Family history of malignant neoplasm of other genital organs; Translations: [Family history of malignant neoplasm of other genital organs] Onset: 08-04-2024 Episodic Residual codes; unclassified (1 source) Family history of malignant neoplasm of breast; Translations: [Family history of malignant neoplasm of breast] Onset: 08-04-2024 Episodic Residual codes; unclassified (1 source) 17 weeks gestation of ; Translations: [17 weeks gestation of ] Onset: 08-04-2024 Episodic Residual codes; unclassified (1 source) 9 weeks gestation of ; Translations: [9 weeks gestation of ] Onset: 06-09-2024 Episodic Unclassified (7 sources) Patient encounter status; Translations: [History of Vaginal Pap smear] Unclassified (3 sources) Cancer cervix screening status; Translations: [Screening for cervical cancer] Unclassified (4 sources) Onset: 01-22-2023 Resolved: 12-08-2023 01-22-2023 NEGATED: Highlighted row has not occurred!Residual codes; unclassified (20 sources) Disease Episodic Results Test Name Value Interpretation Reference Range Facility Head Of Physics Office Visit Reporton 11-24-2024 Head Of Physics Office Visit Report [facility] [address], [address] [place] [address] OFFICE VISIT Date of Service: 11/24/24 MR#: [id number] Acct: [id number] Name: AYE WEIR Rep #: [id number] : 1995 Provider: Dr. Isabel allan MD Age/Sex: 29/F Location: [facility] Status: Signed Intake Vital Signs 06/09/24 11:31 11/10/24 10:43 11/24/24 09:40 Height 5 ft 6 in 5 ft 6 in 5 ft 6 in Weight: 230 lb 4 oz BMI 37.1 BP 105/66 Intake Visit Reasons: 34 WK OB 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 Is patient in pain?: No Allergies morphine Allergy (Intermediate, Verified 11/24/24 09:40) Hives Medications ???Medication ???Instructions ???Recorded ???Confirmed ???Type bupropion HCl 300 mg 24 hr tablet, 300 mg PO QAM 06/09/24 11/24/24 History extended release (Wellbutrin XL) metoprolol succinate 50 mg 50 mg PO QDAY 06/09/24 11/24/24 Hi story tablet,extended release 24 hr multivit-min no.71-iron fum 28 1 cap PO DAILY 06/09/24 11/24/24 H istory mg-folate no.1 1 mg-dha 300 mg capsule (PNV-Dudley) blood sugar diagnostic (Accutrend #50 ea 10/26/24 11/24/24 Rx Glucose test strips) blood-glucose meter (Accu-Chek #1 ea 10/26/24 11/24/24 Rx Guide Glucose Meter) lancets 23 gauge (Acti-Montrell #100 ea 10/26/24 11/24/24 Rx Lancets) Last Menstrual Period: 04/01/24 Zika: Zika virus screening: Negative : No PFSH PFSH Medical History Hx of abnormal cervical Pap smear Asthma Surgical History H/O dilation and curettage H/O gastric sleeve History of surgical removal of ganglion cyst S/P tendon repair Family History Grandmother Cancer Maternal- Pancreatic ca Grandmother Breast cancer, Onset Age: 40 Paternal Mother Cancer, Onset Age: 30 cervical Social History adopted: No household members: significant other and children number of children: 3 current occupational status: employed 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[employer] pets and animals: No history of recent travel: No sexually active: Yes Smoking Status: Never smoker alcohol intake: never substance use type: does not use well-balanced diet: daily or most days caffeine: No eating out: 1-3 times/week during the past year weight has: decreased > 10 lbs what type of physical activity do you participate in: none lupis/latter day: None seatbelt use: sometimes do you feel safe at home: Yes additional social history: Boyfriend- Gretchen- Works at the [employer] History 4 Elective abortions Hx Para 3 Spontaneous abortions Hx # Term Pregnancies Ectopic pregnancies Hx # Pregnancies Multiple births # of living children 3 Past Pregnancies Del. Date Name GA/Weeks Outcome Route Bth Weight Gen Labor Lgth Anesthesia Del Locatn Provider FOB 08/21/16 Stephcelrosa 39 live - full term 9# Female epidural S [facility] Dr. Aaron Almanza 05/05/19 [place] 39 live - [facility] Melissa [facility] live - full term 9#6oz Male epidural [facility] Dr. Castillo Almanza Delivery Date: 05/05/19 Last Updated by: Christy Diaz shoulder dystocia HPI 34 WK OB Details: AYE WEIR is a 29 year old who presents for routine OB visit. OB Visit DOMONIQUE Calculator Estimated Delivery Date Method Current WG Current Estimate 01/06/25 LMP (Certain) 33w 6d Expected Delivery Route/Plan Labor Preferences- CB/BF classes: [] labor support person: [] labor intervention preferences: [] pain management options preferred: [] cut cord/dad catch: [] : [] PP control planned: [] discussed possible routes of delivery and associated risks: [] special requests: [] Specific Issue/Plans Covid status: [] Flu vaccine: [] Tdap vaccine: given Rhogam: [] LARC form signed: [] Problem list reviewed and updated with the most current plan of care details and appropriate orders placed. Relevant counseling for the gestational age provided. Continue routine care and follow up unless otherwise noted in visit notes/problem list details Initial Weight: 203 lb Date -???-???-???-???-???-??? -???-???-???-???-???-??? - EGA Weight BP Urine Prot -???-???-???-???-???-??? -???-???-???-???-???-??? - Glucose FHR FuHt Pres Dilation -???-???-???-???-???-??? -???-???-???-???-???-??? - Effaced St Visit Note 06/09/24 -???-???-???-???-???-??? -???-???-???-???-???-??? - 9w 6d 203 lb (+0 oz) 111/73 (more content not included)... Normal [facility] - Chemistry and C hemistry - challengeOrdered By: Jocelyn Malcolm on 11-10-2024 Glucose Ql (U) Negative [facility] - UrinalysisOrder ed By: Jocelyn Malcolm on 06-12-2025 Protein Ql (U) Trace [facility] Head Of Physics Office Visit Reporton 11-10-2024 Head Of Physics Office Visit Report [facility]'s [address], [address] [place] [address] OFFICE VISIT Date of Service: 11/10/24 MR#: [id number] Acct: [id number] Name: AYE WEIR Rep #: [id number] : 1995 Provider: RICKY Trivedi ams Age/Sex: 29/F Location: [facility] Status: Signed Intake Vital Signs 06/09/24 11:31 10/26/24 09:55 11/10/24 09:55 Height 5 ft 6 in 5 ft 6 in 5 ft 6 in Weight: 225 lb 4 oz BMI 36.3 BP 105/68 Intake Visit Reasons: 32 WK OB 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 Is patient in pain?: No Allergies morphine Allergy (Intermediate, Verified 11/10/24 09:56) Hives Medications ???Medication ???Instructions ???Recorded ???Confirmed ???Type bupropion HCl 300 mg 24 hr tablet, 300 mg PO QAM 06/09/24 11/10/24 History extended release (Wellbutrin XL) metoprolol succinate 50 mg 50 mg PO QDAY 06/09/24 11/10/24 Hi story tablet,extended release 24 hr multivit-min no.71-iron fum 28 1 cap PO DAILY 06/09/24 11/10/24 H istory mg-folate no.1 1 mg-dha 300 mg capsule (PNV-Dudley) blood sugar diagnostic (Accutrend #50 ea 10/26/24 11/10/24 Rx Glucose test strips) blood-glucose meter (Accu-Chek #1 ea 10/26/24 11/10/24 Rx Guide Glucose Meter) lancets 23 gauge (Acti-Montrell #100 ea 10/26/24 11/10/24 Rx Lancets) Last Menstrual Period: 04/01/24 Zika: Zika virus screening: Negative : No PFSH PFSH Medical History Hx of abnormal cervical Pap smear Asthma Surgical History H/O dilation and curettage H/O gastric sleeve History of surgical removal of ganglion cyst S/P tendon repair Family History Grandmother Cancer Maternal- Pancreatic ca Grandmother Breast cancer, Onset Age: 40 Paternal Mother Cancer, Onset Age: 30 cervical Social History adopted: No household members: significant other and children number of children: 3 current occupational status: employed 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[employer] [facility] pets and animals: No history of recent travel: No sexually active: Yes Smoking Status: Never smoker alcohol intake: never substance use type: does not use well-balanced diet: daily or most days caffeine: No eating out: 1-3 times/week during the past year weight has: decreased > 10 lbs what type of physical activity do you participate in: none lupis/latter day: None seatbelt use: sometimes do you feel safe at home: Yes additional social history: Boyfriend- Gretchen- Works at the [employer] History 4 Elective abortions Hx Para 3 Spontaneous abortions Hx # Term Pregnancies Ectopic pregnancies Hx # Pregnancies Multiple births # of living children 3 Past Pregnancies Del. Date Name GA/Weeks Outcome Route Bth Weight Infant Gen Labor Lgth Anesthesia Del Locatn Provider FOB 08/21/16 Layo 39 live - full term 9# Female epidural S [facility] Dr. Aaron Almanza 05/05/19 [place] 39 live - full term 8#1oz Male [facility] Dr. Castillo Almanza 06/06/20 Melissa 38 live - full term 9#6oz Male epidural [facility] Dr. Castillo Almanza Delivery Date: 05/05/19 Last Updated by: Christy Diaz shoulder dystocia HPI 32 WK OB Details: AYE WEIR is a 29 year old who presents for routine OB visit. OB Visit DOMONIQUE Calculator Estimated Delivery Date Method Current WG Current Estimate 01/06/25 LMP (Certain) 31w 6d Expected Delivery Route/Plan Labor Preferences- CB/BF classes: [] labor support person: [] labor intervention preferences: [] pain management options preferred: [] cut cord/dad catch: [] : [] PP control planned: [] discussed possible routes of delivery and associated risks: [] special requests: [] Specific Issue/Plans Covid status: [] Flu vaccine: [] Tdap vaccine: [] Rhogam: [] LARC form signed: [] Problem list reviewed and updated with the most current plan of care details and appropriate orders placed. Relevant counseling for the gestational age provided. Continue routine care and follow up unless otherwise noted in visit notes/problem list details Initial Weight: 203 lb Date -???-???-???-???-???-??? -???-???-???-???-???-??? - EGA Weight BP Urine Prot -???-???-???-???-???-??? -???-???-???-???-???-??? - Glucose FHR FuHt Pres Dilation -???-???-???-???-???-??? -???-???-???-???-???-??? - Effaced St Visit Note 06/09/24 -???-???-???-???-???-??? -???-???-???-???-???-??? - 9w 6d 203 lb (+0 oz) 111/73 -???-???-???-???-?? (more content not included)... Normal [facility] Parvovirus B19 IgG AND IgMon 10-31-2024 PARVO B19 IGG 4.3 index Abnormal 0.0-0.[address] [facility] Comment on above: Result Comment: Nega tive <0.9 Equivocal 0.9 - 1.1 Positive >1.1 Performed By: #### L 3890.6301, L100.0100, L509.4006, L500.4050, L3890.6006, L509.8002, L3890.6102, BTS, L501.9985 #### [facility] Laboratory [address] [place], [place], [id number] PARVO B19 IGM 0.2 index Normal 0.0-0.[address] [facility] Comment on above: Result Comment: Nega tive <0.9 Equivocal 0.9 - 1.1 Positive >1.1 Performed at: [address] [id number] [place] Manager: Abner Sharpe MD, Phone: [phone] Performed By: #### L 3890.6301, L100.0100, L509.4006, L500.4050, L3890.6006, L509.8002, L3890.6102, BTS, L501.9985 #### [facility] [address] [place], [place], [id number] Ferritinon 10-26-2024 Ferritin [Mass/Vol] 9 ng/mL Low 22-378 [facility] Comment on above: Performed By: #### L 3890.6301, L100.0100, L509.4006, L500.4050, L3890.6006, L509.8002, L3890.6102, BTS, L501.9985 #### [facility] [address] [place], [place], [id number] Iron measurement (mass/mass) Ordered By: Adelaida Robertson on 10-26-2024 Iron (Unsp spec) [Mass/Mass] 36 ug/dL Low 50-[address] [facility] Iron+Iron Binding Capacityon 10-26-2024 TIBC 476 ug/dL High 250-[address] [facility] Comment on above: Performed By: #### L 3890.6301, L100.0100, L509.4006, L500.4050, L3890.6006, L509.8002, L3890.6102, BTS, L501.9985 #### [facility] [address] [place], [address] Laboratory - Chemistry and C hemistry - challengeOrdered By: Adelaida Robertson on 10-26-2024 Glucose Ql (U) Negative [facility] Laboratory - UrinalysisOrder ed By: Adelaida Marcelo on 10-26-2024 Protein Ql (U) Negative [facility] No Panel InformationOrdered By: Adelaida Robertson on 10-26-2024 Unsaturated Iron Binding Capacity 440 ug/dL High 228-[address] [facility] Head Of Physics Office Visit Reporton 10-26-2024 Head Of Physics Office Visit Report [facility] [address], [address] [place] [address] OFFICE VISIT Date of Service: 10/26/24 MR#: [id number] Acct: [id number] Name: AYE WEIR Rep #: [id number] : 1995 Provider: Dr. 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 Is patient in pain?: No Allergies morphine Allergy (Intermediate, Verified 10/26/24 09:53) Hives Medications ???Medication ???Instructions ???Recorded ???Confirmed ???Type bupropion HCl 300 mg 24 hr tablet, 300 mg PO QAM 06/09/24 10/26/24 History extended release (Wellbutrin XL) metoprolol succinate 50 mg 50 mg PO QDAY 06/09/24 10/26/24 Hi story tablet,extended release 24 hr multivit-min no.71-iron fum 28 1 cap PO DAILY 06/09/24 10/26/24 H istory mg-folate no.1 1 mg-dha 300 mg capsule (PNV-Dudley) blood sugar diagnostic (Accutrend #50 ea 05/28/25 05/28/25 Rx Glucose test strips) blood-glucose meter (Accu-Chek #1 ea 10/26/24 10/26/24 Rx Guide Glucose Meter) lancets 23 gauge (Acti-Montrell #100 ea 10/26/24 10/26/24 Rx Lancets) Last Menstrual Period: 04/01/24 Zika: Zika virus screening: Negative : No PFSH PFSH Medical History Hx of abnormal cervical Pap smear Asthma Surgical History H/O dilation and curettage H/O gastric sleeve History of surgical removal of ganglion cyst S/P tendon repair Family History Grandmother Cancer Maternal- Pancreatic ca Grandmother Breast cancer, Onset Age: 40 Paternal Mother Cancer, Onset Age: 30 cervical Social History adopted: No household members: significant other and children number of children: 3 current occupational status: employed 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[facility] [employer] pets and animals: No history of recent travel: No sexually active: Yes Smoking Status: Never smoker alcohol intake: never substance use type: does not use well-balanced diet: daily or most days caffeine: No eating out: 1-3 times/week during the past year weight has: decreased > 10 lbs what type of physical activity do you participate in: none lupis/latter day: None seatbelt use: sometimes do you feel safe at home: Yes additional social history: Boyfriend- Gretchen- Works at the [employer] History 4 Elective abortions Hx Para 3 Spontaneous abortions Hx # Term Pregnancies Ectopic pregnancies Hx # Pregnancies Multiple births # of living children 3 Past Pregnancies Del. Date Name GA/Weeks Outcome Route Bth Weight Infant Gen Labor Lgth Anesthesia Del Locatn Provider FOB 08/21/16 Layo 39 live - full term 9# Female epidural S [facility] Dr. Aaron Almanza 05/05/19 [place] 39 live - full term 8#1oz Male [facility] Dr. Castillo Almanza 06/06/20 Melissa 38 live - full term 9#6oz Male epidural [facility] Dr. Castillo Almanza Delivery Date: 05/05/19 Last Updated by: Christy Diaz shoulder dystocia HPI 30 WK OB Details: AYE WEIR is a 29 year old who presents for routine OB visit. OB Visit DOMONIQUE Calculator Estimated Delivery Date Method Current WG Current Estimate 01/06/25 LMP (Certain) 29w 5d Expected Delivery Route/Plan Labor Preferences- CB/BF classes: [] labor support person: [] labor intervention preferences: [] pain management options preferred: [] cut cord/dad catch: [] : [] PP control planned: [] discussed possible routes of delivery and associated risks: [] special requests: [] Specific Issue/Plans Covid status: [] Flu vaccine: [] Tdap vaccine: [] Rhogam: [] LARC form signed: [] Problem list reviewed and updated with the most current plan of care details and appropriate orders placed. Relevant counseling for the gestational age provided. Continue routine care and follow up unless otherwise noted in visit notes/problem list details Initial Weight: 203 lb Date -???-???-???-???-???-??? -???-???-???-???-???-??? - EGA Weight BP Urine Prot -???-???-???-???-???-??? -???-???-???-???-???-??? - Glucose FHR FuHt Pres Dilation -???-???-???-???-???-??? -???-???-???-???-???-??? - Effaced St Visit Note 06/09/24 -???-???-???-???-???-??? -???-???-???-???-???-??? - 9w 6d (more content not included)... Normal [facility] Parvovirus B19 IgMOrdered By : Adelaida Robertson on 10-26-2024 Parvovirus B19 IgM IA Qn (S) 0.2 index 0.0-0.[address] [facility] Comment on above: Negative <0.9 Equivo marvin 0.9 - 1.1 Positive >1.1Performed at: - [facility] [id number] Director: Abner Sharpe MD, Phone: [phone] Serum or plasma ferritin moriah surement (mass/volume)Ordered By: Adelaida Robertson on 10-26-2024 Ferritin [Mass/Vol] 9 ng/mL Low 22-378 [facility] Serum or plasma iron saturat ion measurement (mass fraction)Ordered By: Adelaida Robertson on 10-26-2024 Iron saturation [Mass fraction] 7.6 % Low 13-[address] [facility] Comment on above: Previous reported re sult: 8.0 %Edited by: JOYCE on 10/26/24:2009 AMENDED REPORT 10/26/242009 IRON SATURATION previously reported as: 8.0 L % Vitamin B12on 10-26-2024 Cobalamin (Vitamin B12) [Mass/Vol] 462 pg/mL Normal 180-[address] [facility] Comment on above: Performed By: #### L 3890.6301, L100.0100, L509.4006, L500.4050, L3890.6006, L509.8002, L3890.6102, BTS, L501.9985 #### [facility] Laboratory [address] [place], [place] [address], [address] Vitamin B12 ser/plasOrdered By: Adelaida Robertson on 10-26-2024 Cobalamin (Vitamin B12) [Mass/Vol] 462 pg/mL 180-[address] [facility] Absolute lymphocyte countOrd ered By: Luisa Curiel on 09-28-2024 Lymphocytes Auto (Unsp spec) [#/Vol] 1.98 10*3/uL 0.83-4.[address] [facility] Absolute neutrophil countOrd ered By: Luisa Curiel on 09-28-2024 Neutrophils (Bld) [#/Vol] 5.9 10*3/uL 2.0-7.[address] [facility] Automated lymphocyte count a s percentage of total leukocytesOrdered By: Luisa Curiel on 09-28-2024 Lymphocytes/100 WBC Auto (Unsp spec) 22.8 % 19-[address] [facility] Basophil percentageOrdered B y: Luisa Curiel on 09-28-2024 Basophils/100 WBC (Bld) 0.3 % 0-1 [facility] CBC W/Diff, Automatedon 09-01 Absolute Lymph 1.98 X10 3/uL Normal 0.83-4.[address] [facility] Comment on above: Performed By: #### L 3890.6301, L100.0100, L509.4006, L500.4050, L3890.6006, L509.8002, L3890.6102, BTS, L501.9985 #### [facility] [address] [place], [address] Absolute Neut 5.9 X10 3/uL Normal 2.0-7.[address] [facility] Comment on above: Performed By: #### L 3890.6301, L100.0100, L509.4006, L500.4050, L3890.6006, L509.8002, L3890.6102, BTS, L501.9985 #### [facility] [address] [place], [address] Basophils/100 WBC (Bld) 0.3 % Normal 0-1 [facility] Comment on above: Performed By: #### L 3890.6301, L100.0100, L509.4006, L500.4050, L3890.6006, L509.8002, L3890.6102, BTS, L501.9985 #### [facility] [address] [place], [address] Eosinophils/100 WBC (Bld) 0.8 % Normal 0-[address] [facility] Comment on above: Performed By: #### L 3890.6301, L100.0100, L509.4006, L500.4050, L3890.6006, L509.8002, L3890.6102, BTS, L501.9985 #### [facility] [address] [place], [address] Erythrocyte distribution width (RBC) [Ratio] 13.8 % Normal 11.6-14.[address] [facility] Comment on above: Performed By: #### L 3890.6301, L100.0100, L509.4006, L500.4050, L3890.6006, L509.8002, L3890.6102, BTS, L501.9985 #### [facility] [address] [place], [address] Hematocrit (Bld) [Volume fraction] 29.4 % Low 37-[address] [facility] Comment on above: Performed By: #### L 3890.6301, L100.0100, L509.4006, L500.4050, L3890.6006, L509.8002, L3890.6102, BTS, L501.9985 #### [facility] [address] [facility] [place], [address] Hemoglobin (Bld) [Mass/Vol] 9.4 g/dL Low 12.0-15.[address] [facility] Comment on above: Performed By: #### L 3890.6301, L100.0100, L509.4006, L500.4050, L3890.6006, L509.8002, L3890.6102, BTS, L501.9985 #### [facility] [address] [place], [address] IG% 0.500 Normal 0.0-0.[address] [facility] Comment on above: Result Comment: IG% - Immature Granulocytes (promyelocytes, myelocytes and metamyelocytes) > 1% indicates that a LEFT SHIFT is Present. Performed By: #### L 3890.6301, L100.0100, L509.4006, L500.4050, L3890.6006, L509.8002, L3890.6102, BTS, L501.9985 #### [facility] [address] [place], [address] Lymphocytes/100 WBC (Bld) 22.8 % Normal 19-[address] [facility] Comment on above: Performed By: #### L 3890.6301, L100.0100, L509.4006, L500.4050, L3890.6006, L509.8002, L3890.6102, BTS, L501.9985 #### [facility] [address] [place], [address] MCH (RBC) [Entitic mass] 28.8 pg Normal 27.0-32.[address] [facility] Comment on above: Performed By: #### L 3890.6301, L100.0100, L509.4006, L500.4050, L3890.6006, L509.8002, L3890.6102, BTS, L501.9985 #### [facility] [address] [place], [address] MCHC (RBC) [Mass/Vol] 32.0 g/dL Normal 32-[address] [facility] Comment on above: Performed By: #### L 3890.6301, L100.0100, L509.4006, L500.4050, L3890.6006, L509.8002, L3890.6102, BTS, L501.9985 #### [facility] [address] [place], [address] MCV (RBC) [Entitic vol] 90.2 fL Normal 81-99 [facility] Comment on above: Performed By: #### L 3890.6301, L100.0100, L509.4006, L500.4050, L3890.6006, L509.8002, L3890.6102, BTS, L501.9985 #### [facility] [address] [place], [address] Monocytes/100 WBC (Bld) 8.1 % Normal 0-10 [facility] Comment on above: Performed By: #### L 3890.6301, L100.0100, L509.4006, L500.4050, L3890.6006, L509.8002, L3890.6102, BTS, L501.9985 #### [facility] [address] [place], [address] Neutrophils/100 WBC (Bld) 67.5 % Normal 47-[address] [facility] Comment on above: Performed By: #### L 3890.6301, L100.0100, L509.4006, L500.4050, L3890.6006, L509.8002, L3890.6102, BTS, L501.9985 #### [facility] [address] [place], [address] Nucleated RBC (Bld) [#/Vol] 0 10*3/uL Normal 0-[address] [facility] Comment on above: Performed By: #### L 3890.6301, L100.0100, L509.4006, L500.4050, L3890.6006, L509.8002, L3890.6102, BTS, L501.9985 #### [facility] [address] [place], [address] Platelet mean volume (Bld) [Entitic vol] 10.3 fL Normal 6.2-12.[address] [facility] Comment on above: Performed By: #### L 3890.6301, L100.0100, L509.4006, L500.4050, L3890.6006, L509.8002, L3890.6102, BTS, L501.9985 #### [facility] [address] [place], [address] Platelets (Bld) [#/Vol] 263 10*3/uL Normal 150-[address] [facility] Comment on above: Performed By: #### L 3890.6301, L100.0100, L509.4006, L500.4050, L3890.6006, L509.8002, L3890.6102, BTS, L501.9985 #### [facility] [address] [place], [address] RBC (Bld) [#/Vol] 3.26 10*6/uL Low 4.2-5.4 [facility] Comment on above: Performed By: #### L 3890.6301, L100.0100, L509.4006, L500.4050, L3890.6006, L509.8002, L3890.6102, BTS, L501.9985 #### [facility] [address] [place], [address] RDW SD 45.5 fl High 35.1-43.[address] [facility] Comment on above: Performed By: #### L 3890.6301, L100.0100, L509.4006, L500.4050, L3890.6006, L509.8002, L3890.6102, BTS, L501.9985 #### [facility] [address] [place], [address] WBC (Bld) [#/Vol] 8.7 10*3/uL Normal 4.4-11.0 [facility] Comment on above: Performed By: #### L 3890.6301, L100.0100, L509.4006, L500.4050, L3890.6006, L509.8002, L3890.6102, BTS, L501.9985 #### [facility] [address] [place], [place], [address] Eosinophil percentageOrdered By: Luisa [place] on 09-28-2024 Eosinophils/100 WBC (Bld) 0.8 % 0-[address] [facility] Erythrocyte distribution wid th ratioOrdered By: Luisa [place] on 09-28-2024 Erythrocyte distribution width (RBC) [Ratio] 13.8 % 11.6-14.[address] [facility] Erythrocyte distribution wid th standard deviationOrdered By: Luisa Veena on 09-28-2024 Erythrocyte distribution width (RBC) [Ratio] 45.5 fl High 35.1-43.[address] [facility] Ferritinon 09-28-2024 Ferritin [Mass/Vol] 9 ng/mL Low 22-378 [facility] Comment on above: Performed By: #### L 3890.6301, L100.0100, L509.4006, L500.4050, L3890.6006, L509.8002, L3890.6102, BTS, L501.9985 #### [facility] [address] [facility] [place], [place], [id number] Glucose Challenge Gest 1H 50 tere 09-28-2024 GLU GEST 50g 1H 95 mg/dL Normal 70-[address] [facility] Comment on above: Performed By: #### L 3890.6301, L100.0100, L509.4006, L500.4050, L3890.6006, L509.8002, L3890.6102, BTS, L501.9985 #### [facility] [address] [facility] [place], [place], [address] Glucose measurement at 2 leia rs post-dose gestational glucose tolerance testOrdered By: Luisa Veena on 09-28-2024 Glucose [Mass/Vol] 95 mg/dL 70-140 [facility] HIVon 09-28-2024 HIV Non-Reactive Normal Nonreactive [facility] Comment on above: Result Comment: Non- Reactive Reactive Repeatedly reactive samples must be confirmed according to CDC recommended confirmatory algorithms. The subresults for either HIVAG or AHIV can be used as an aid in the selection of the confirmation algorithm for reactive samples. Send out specimens with Reactive results to [facility] for confirmation. Order the HIV antibody detection and differentiation: lc#[id number] Performed By: #### L 3890.6301, L100.0100, L509.4006, L500.4050, L3890.6006, L509.8002, L3890.6102, BTS, L501.9985 #### [facility] [address] [place], [place], [address] Hematocrit Auto (Bld) [Volum e fraction]Ordered By: Luisa Curiel on 09-28-2024 Hematocrit (Bld) [Volume fraction] 29.4 % Low 37-[address] [facility] Hemoglobin measurementOrdere d By: Luisa Curiel on 09-28-2024 Hemoglobin (Bld) [Mass/Vol] 9.4 g/dL Low 12.0-15.[address] [facility] Immature granulocytes/100 WB C Auto (Bld)Ordered By: Luisajg Curiel on 09-28-2024 Immature granulocytes/100 WBC (Bld) 0.500 % 0.0-0.[address] [facility] Comment on above: IG% - Immature Granu locytes (promyelocytes, myelocytes and metamyelocytes) > 1% indicates that a LEFT SHIFT is Present. Iron measurement (mass/mass) Ordered By: Isabel Luz on 09-28-2024 Iron (Unsp spec) [Mass/Mass] 37 ug/dL Low 50-[address] [facility] Iron+Iron Binding Capacityon 09-28-2024 Iron [Mass/Vol] 37 ug/dL Low 50-[address] [facility] Comment on above: Performed By: #### L 3890.6301, L100.0100, L509.4006, L500.4050, L3890.6006, L509.8002, L3890.6102, BTS, L501.9985 #### [facility] [address] [place], [place], [id number] IRON SATURATION 9.0 Low 13-[address] [facility] Comment on above: Performed By: #### L 3890.6301, L100.0100, L509.4006, L500.4050, L3890.6006, L509.8002, L3890.6102, BTS, L501.9985 #### [facility] [address] [place], [address] TIBC 422 ug/dL Normal 250-[address] [facility] Comment on above: Performed By: #### L 3890.6301, L100.0100, L509.4006, L500.4050, L3890.6006, L509.8002, L3890.6102, BTS, L501.9985 #### [facility] [address] [place], [address] UIBC 385 ug/dL Normal 228-[address] [facility] Comment on above: Performed By: #### L 3890.6301, L100.0100, L509.4006, L500.4050, L3890.6006, L509.8002, L3890.6102, BTS, L501.9985 #### [facility] [address] [place], [address] MCV (mean corpuscular volume ) determinationOrdered By: Luisa Curiel on 09-28-2024 MCV (RBC) [Entitic vol] 90.2 fL 81-99 [facility] Mean corpuscular hemoglobin (MCH) determinationOrdered By: Luisa Curiel on 09-28-2024 MCH (RBC) [Entitic mass] 28.8 pg 27.0-32.[address] [facility] Mean corpuscular hemoglobin concentration (MCHC) determinationOrdered By: Luisa Curiel on 09-28-2024 MCHC (RBC) [Mass/Vol] 32.0 g/dL 32-[address] [facility] Mean platelet volume determi nationOrdered By: Luisa Curiel on 09-28-2024 Platelet mean volume (Bld) [Entitic vol] 10.3 fL 6.2-12.0 [facility] Monocyte percentageOrdered B y: Luisa Curiel on 09-28-2024 Monocytes/100 WBC (Bld) 8.1 % 0-10 [facility] Neutrophil percentageOrdered By: Luisa Curiel on 09-28-2024 Neutrophils/100 WBC (Bld) 67.5 % 47-[address] [facility] No Panel InformationOrdered By: Luisa Curiel on 09-28-2024 HIV (1&2) Antibody Non-Reactive Nonreactive [facility] Comment on above: Non-ReactiveReactive Repeatedly reactive samples must be confirmed according to CDC recommended confirmatory algorithms. The subresults for either HIVAG or AHIV can be used as an aid in the selection of the confirmation algorithm for reactive samples.Send out specimens with Reactive results to [facility] for confirmation.Order the HIV antibody detection and differentiation: #[id number] No Panel InformationOrdered By: Isabel Luz on 09-28-2024 Unsaturated Iron Binding Capacity 385 ug/dL 228-[address] [facility] Nucleated red blood cell per centageOrdered By: Luisa Eddys on 09-28-2024 Nucleated RBC/100 WBC (Bld) [Ratio] 0 % 0-[address] [facility] Head Of Physics Office Visit Reporton 09-28-2024 Head Of Physics Office Visit Report [facility], [facility] [address] [place] [address] OFFICE VISIT Date of Service: 09/28/24 MR#: [id number] Acct: [id number] Name: AYE WEIR Rep #: [id number] : 1995 Provider: Dr. 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 Is patient in pain?: No Feel stressed/tense/nervous/a nxious/difficulty sleeping: not at all Allergies morphine Allergy (Intermediate, Verified 09/28/24 09:36) Hives Medications ???Medication ???Instructions ???Recorded ???Confirmed ???Type bupropion HCl 300 mg 24 hr tablet, 300 mg PO QAM 06/09/24 09/28/24 History extended release (Wellbutrin XL) metoprolol succinate 50 mg 50 mg PO QDAY 06/09/24 09/28/24 Hi story tablet,extended release 24 hr multivit-min no.71-iron fum 28 1 cap PO DAILY 06/09/24 09/28/24 H istory mg-folate no.1 1 mg-dha 300 mg capsule (PNV-Dudley) Last Menstrual Period: 04/01/24 Zika: Zika virus screening: Negative : No PFSH PFSH Medical History Hx of abnormal cervical Pap smear Asthma Surgical History H/O dilation and curettage H/O gastric sleeve History of surgical removal of ganglion cyst S/P tendon repair Family History Grandmother Cancer Maternal- Pancreatic ca Grandmother Breast cancer, Onset Age: 40 Paternal Mother Cancer, Onset Age: 30 cervical Social History adopted: No household members: significant other and children number of children: 3 current occupational status: employed 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[employer] pets and animals: No history of recent travel: No sexually active: Yes Smoking Status: Never smoker alcohol intake: never substance use type: does not use well-balanced diet: daily or most days caffeine: No eating out: 1-3 times/week during the past year weight has: decreased > 10 lbs what type of physical activity do you participate in: none lupis/latter day: None seatbelt use: sometimes do you feel safe at home: Yes additional social history: Boyfriend- Gretchen- Works at the [employer] History 4 Elective abortions Hx Para 3 Spontaneous abortions Hx # Term Pregnancies Ectopic pregnancies Hx # Pregnancies Multiple births # of living children 3 Past Pregnancies Del. Date Name GA/Weeks Outcome Route Bth Weight Gen Labor Lgth Anesthesia Del Locatn Provider FOB 08/21/16 Layo 39 live - full term 9# Female epidural S [facility] Dr. Aaron Almanza 05/05/19 River 39 live - full term 8#1oz Male [facility] Castillo Almanza 06/06/20 Melissa 38 live - full term 9#6oz Male epidural [facility] Dr. Castillo Almanza Delivery Date: 05/05/19 Last Updated by: Christy Diaz shoulder dystocia HPI 26 WK OB/ GLUCOSE Details: AYE WEIR is a 29 year old who presents for routine OB visit. OB Visit DOMONIQUE Calculator Estimated Delivery Date Method Current WG Current Estimate 01/06/25 LMP (Certain) 25w 5d Expected Delivery Route/Plan Labor Preferences- CB/BF classes: [] labor support person: [] labor intervention preferences: [] pain management options preferred: [] cut cord/dad catch: [] : [] PP control planned: [] discussed possible routes of delivery and associated risks: [] special requests: [] Specific Issue/Plans Covid status: [] Flu vaccine: [] Tdap vaccine: [] Rhogam: [] LARC form signed: [] Problem list reviewed and updated with the most current plan of care details and appropriate orders placed. Relevant counseling for the gestational age provided. Continue routine care and follow up unless otherwise noted in visit notes/problem list details Initial Weight: 203 lb Date -???-???-???-???-???-??? -???-???-???-???-???-??? - EGA Weight BP Urine Prot -???-???-???-???-???-??? -???-???-???-???-???-??? - Glucose FHR FuHt Pres Dilation -???-???-???-???-???-??? -???-???-???-???-???-??? - Effaced St Visit Note 06/09/24 -???-???-???-???-???-??? -???-???-???-???-???-??? - 9w 6d 203 lb (+0 oz) 111/73 -???-???-???-???-???-??? -???-???-???-???-???-??? - 175 -???-???-???-???-???-??? -???-???-???-???-???-??? - KW- CRL cons with dates. declines NIPT. on Me (more content not included)... Normal [facility] Platelet countOrdered By: Edmundo Curiel on 09-28-2024 Platelets (Bld) [#/Vol] 263 10*3/uL 150-[address] [facility] RBC Auto (Bld) [#/Vol]Ordere d By: Luisa Curiel on 09-28-2024 RBC (Bld) [#/Vol] 3.26 10*6/uL Low 4.2-5.4 [facility] Serum or plasma ferritin moriah surement (mass/volume)Ordered By: Isabel Luz on 09-28-2024 Ferritin [Mass/Vol] 9 ng/mL Low 22-378 [facility] Serum or plasma iron saturat ion measurement (mass fraction)Ordered By: Isabel Luz on 09-28-2024 Iron saturation [Mass fraction] 9.0 % Low 13-[address] [facility] Syphilis Antibodieson 2024 Syphilis Abs Non-Reactive Normal Nonreactive [facility] Comment on above: Performed By: #### L 3890.6301, L100.0100, L509.4006, L500.4050, L3890.6006, L509.8002, L3890.6102, BTS, L501.9985 #### [facility] Laboratory [address] [place], [place], [id number] White blood cell (WBC) count Ordered By: Luisa Veena on 09-28-2024 WBC (Bld) [#/Vol] 8.7 10*3/uL 4.4-11.0 [facility] Genital Culture Comprehensiv tay 09-02-2024 VAC Reason for Exam: spotting Presumptive C albicans Amount Growth 3+ Normal [facility] Comment on above: Performed By: #### L 3890.6301, L100.0100, L509.4006, L500.4050, L3890.6006, L509.8002, L3890.6102, BTS, L501.9985 #### [facility] [address] [place], [place], [id number] Laboratory - Chemistry and C hemistry - challengeOrdered By: Luisa Curiel on 08-31-2024 Glucose Ql (U) Negative [facility] Laboratory - UrinalysisOrder ed By: Luisa Curiel on 08-31-2024 Protein Ql (U) Negative 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 Is patient in pain?: No Allergies morphine Allergy (Intermediate, Verified 08/31/24 09:41) Hives Medications ???Medication ???Instructions ???Recorded ???Confirmed ???Type bupropion HCl 300 mg 24 hr tablet, 300 mg PO QAM 06/09/24 08/31/24 History extended release (Wellbutrin XL) metoprolol succinate 50 mg 50 mg PO QDAY 06/09/24 08/31/24 Hi story tablet,extended release 24 hr multivit-min no.71-iron fum 28 1 cap PO DAILY 06/09/24 08/31/24 H istory mg-folate no.1 1 mg-dha 300 mg capsule (PNV-Dudley) Last Menstrual Period: 04/01/24 Zika: Zika virus screening: Negative : No PFSH PFSH Medical History Hx of abnormal cervical Pap smear Asthma Surgical History H/O dilation and curettage H/O gastric sleeve History of surgical removal of ganglion cyst S/P tendon repair Family History Grandmother Cancer Maternal- Pancreatic ca Grandmother Breast cancer, Onset Age: 40 Paternal Mother Cancer, Onset Age: 30 cervical Social History adopted: No household members: significant other and children number of children: 3 current occupational status: employed 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[employer] pets and animals: No history of recent travel: No sexually active: Yes Smoking Status: Never smoker alcohol intake: never substance use type: does not use well-balanced diet: daily or most days caffeine: No eating out: 1-3 times/week during the past year weight has: decreased > 10 lbs what type of physical activity do you participate in: none lupis/latter day: None seatbelt use: sometimes do you feel safe at home: Yes additional social history: Boyfriend- Gretchen- Works at the [employer] History 4 Elective abortions Hx Para 3 Spontaneous abortions Hx # Term Pregnancies Ectopic pregnancies Hx # Pregnancies Multiple births # of living children 3 Past Pregnancies Del. Date Name GA/Weeks Outcome Route Bth Weight Gen Labor Lgth Anesthesia Del Locatn Provider FOB 08/21/16 Layo 39 live - full term 9# Female epidural S [facility] Dr. Aaron Almanza 05/05/19 Rolando 39 live - full term 8#1oz Male none [facility] Dr. Castillo Almanza 06/06/20 Melissa 38 live - full term 9#6oz Male epidural [facility] Dr. Castillo Almanza Delivery Date: 05/05/19 Last Updated by: Christy Diaz shoulder dystocia HPI 22WK OB Details: AYE WEIR is a 29 year old who presents for routine OB visit. OB Visit DOMONIQUE Calculator Estimated Delivery Date Method Current WG Current Estimate 01/06/25 LMP (Certain) 21w 5d Expected Delivery Route/Plan Labor Preferences- CB/BF classes: [] labor support person: [] labor intervention preferences: [] pain management options preferred: [] cut cord/dad catch: [] : [] PP control planned: [] discussed possible routes of delivery and associated risks: [] special requests: [] Specific Issue/Plans Covid status: [] Flu vaccine: [] Tdap vaccine: [] Rhogam: [] LARC form signed: [] Problem list reviewed and updated with the most current plan of care details and appropriate orders placed. Relevant counseling for the gestational age provided. Continue routine care and follow up unless otherwise noted in visit notes/problem list details Initial Weight: 203 lb Date -???-???-???-???-???-??? -???-???-???-???-???-??? - EGA Weight BP Urine Prot -???-???-???-???-???-??? -???-???-???-???-???-??? - Glucose FHR FuHt Pres Dilation -???-???-???-???-???-??? -???-???-???-???-???-??? - Effaced St Visit Note 06/09/24 -???-???-???-???-???-??? -???-???-???-???-???-??? - 9w 6d 203 lb (+0 oz) 111/73 -???-???-???-???-???-??? -???-???-???-???-???-??? - 175 -???-???-???-???-???-??? -???-???-???-???-???-??? - KW- CRL cons with dates. declines NIPT. on Metoprolol for elevated HR-sees cardiology PRN. 07/11/24 -???-???-???- (more content not included)... Normal [facility] OB Triage Physician Noteon 0 08-30-2024 OB Triage Physician Note [facility] Medical Records Department [address] [place] [address] OB Triage Physician Note 08/30/24 1613 MR#: [id number] Acct: [id number] Name: AYE WEIR Rep #: [id number] : 1995 29 From: Isabel Luz MD PCP: Care Physician,No Primary Status:DEP CLI Y Location: [facility] HPI - General HPI Narrative AYE WEIR, is a 29 F who presents with spotting in 21 weeks increase discharge some crmaping no fevers no uti symptoms no back pain feeling some movement. Maternal Data Information DOMONIQUE Calculator Estimated Delivery Date Method Current WG Current Estimate 01/06/25 LMP (Certain) 21w 4d PFSH PFSH Medical History Hx of abnormal cervical Pap smear Asthma Home Medications ???Medication ???Instructions ???Recorded ???Last Taken ???Type bupropion HCl 300 mg 24 hr tablet, 300 mg PO QAM 06/09/24 08/27/24 07:00 History extended release (Wellbutrin XL) 300 mg metoprolol succinate 50 mg 50 mg PO QDAY 06/09/24 08/27/24 07 :00 History tablet,extended release 24 hr 50 mg multivit-min no.71-iron fum 28 1 cap PO DAILY 06/09/24 08/27/24 0 7:00 History mg-folate no.1 1 mg-dha 300 mg 1 cap capsule (PNV-Dudley) Allergy/AdvReac Type Severity Reaction Status Date / Time morphine Allergy Intermediate Hives Verified 08/29/24 14:03 Family History Grandmother Cancer Maternal- Pancreatic ca Grandmother Breast cancer, Onset Age: 40 Paternal Mother Cancer, Onset Age: 30 cervical Surgical History H/O dilation and curettage H/O gastric sleeve History of surgical removal of ganglion cyst S/P tendon repair Social History adopted: No household members: significant other and children number of children: 3 current occupational status: employed 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[employer] pets and animals: No history of recent travel: No sexually active: Yes Smoking Status: Never smoker alcohol intake: never substance use type: does not use well-balanced diet: daily or most days caffeine: No eating out: 1-3 times/week during the past year weight has: decreased > 10 lbs what type of physical activity do you participate in: none lupis/latter day: None seatbelt use: sometimes do you feel safe at home: Yes additional social history: Boyfriend- Gretchen- Works at the [employer] History 4 Elective abortions Hx Para 3 Spontaneous abortions Hx # Term Pregnancies Ectopic pregnancies Hx # Pregnancies Multiple births # of living children 3 Past Pregnancies Del. Date Name GA/Weeks Outcome Route Bth Weight Gen Labor Lgth Anesthesia Del Locatn Provider FOB 08/21/16 Gracelynestelita 39 live - full term 9# Female epidural S [facility] Dr. Aaron Almanza 05/05/19 River 39 live - full term 8#1oz Male none [facility] Dr. Castillo Almanza 06/06/20 Melissa 38 live - full term 9#6oz Male epidural [facility] Dr. Castillo Almanza Delivery Date: 12/05/19 Last Updated by: Christy Diaz shoulder dystocia Visit Details Expected Delivery Route/Plan Labor Preferences- CB/BF classes: [] labor support person: [] labor intervention preferences: [] pain management options preferred: [] cut cord/dad catch: [] : [] PP control planned: [] discussed possible routes of delivery and associated risks: [] special requests: [] Plans Covid status: [] Flu vaccine: [] Tdap vaccine: [] Rhogam: [] LARC form signed: [] Problem list reviewed and updated with the most current plan of care details and appropriate orders placed. Relevant counseling for the gestational age provided. Continue routine care and follow up unless otherwise noted in visit notes/problem list details OB Flowsheet Initial Weight: 203 lb Date -???-???-???-???-???-??? -???-???-???-???-???-??? - EGA Weight BP Urine Prot -???-???-???-???-???-??? -???-???-???-???-???-??? - Glucose FHR FuHt Pres Dilation -???-???-???-???-???-??? -???-???-???-???-???-??? - Effaced St Visit Note 06/09/24 -???-???-???-???-???-??? -???-???-???-???-???-??? - 9w 6d 203 lb (+0 oz) 111/73 -???-???-???-???-???-??? -???-???-???-???-???-??? - 175 -???-???-???-???-???-??? -???-???-???-???-???-??? - KW- CRL cons with dates. declines NIPT. on Metoprolol for elevated HR-sees cardiology PRN. 07/11/24 -???-???-???-???-???-??? -???-???-???-???-???-??? - 14w 3d 203 lb (+0 oz) 97/63 Negative -???-???-???-???-???-??? -???-???-???-???-???-??? - Negative 160 -???-???-???-???-???-??? -???-???- (more content not included)... Normal [facility] Bilirubin Test strip Ql (U)O rdered By: Isabel Luz on 08-29-2024 Bilirubin Ql (U) Negative Negative [facility] Glucose Ql (U)Ordered By: Ricardo Luz on 08-29-2024 Urine Glucose (UA) Normal mg/dl Normal [facility] Gram Stainon 08-29-2024 GS Reason for Exam: spotting Gram Stain Rare Yeast Like Organisms 2+ White Blood Cells 3+ Gram positive rods Score = 1 Interpretation: 0-3 Normal, 4-6 Intermediate, 7-10 Positive BV Normal [facility] Comment on above: Performed By: #### L 3890.6301, L100.0100, L509.4006, L500.4050, L3890.6006, L509.8002, L3890.6102, BTS, L501.9985 #### [facility] Laboratory [address] [place], [address] Gram stainOrdered By: Isabel Luz on 08-29-2024 Microscopic observation Gram stain Nom (Unsp spec) [facility] Ketones Test strip Ql (U)Ord ered By: Isabel Luz on 08-29-2024 Ketones Ql (U) Negative Negative [facility] Microscopic analysis of urin e for red blood cells (RBC)Ordered By: Isabel Luz on 08-29-2024 Microscopic analysis of urine for red blood cells (RBC) Not Reportable [facility] Mucus LM Ql (Urine sed)Order ed By: Isabel Luz on 08-29-2024 Mucus Ql (Urine sed) 0 SEEN /hpf [facility] Nitrite Test strip Ql (U)Ord ered By: Isabel Luz on 08-29-2024 Nitrite Ql (U) Negative Negative [facility] OB Limited (No Biometrics)on 08-29-2024 OB Limited (No Biometrics) [facility] Imaging Services [address] [place] [address] OB Limited (No Biometrics) MR#: [id number] Acct: [id number] Name: AYE WEIR Rep #: [id number] : 1995 F 29 From: Steven hernandez MD PCP: Care Physician,No Primary Status: REG CLI Study: OB Limited (No Biometrics) Date of Exam: 08/29 Exam# [id number] Ordering Dr: Isabel Luz PROCEDURE: OB LIMITED (NO BIOMETRICS) 08/29/2024 REASON FOR EXAM: BLEEDING History of low-lying placenta. TECHNIQUE: High resolution obstetric ultrasound performed using a 2D transducer. Standard views obtained, including biometry, anatomy survey, and Doppler studies. COMPARISON: None available. FINDINGS Number: 1 Position: Breech Placental Position: Posterior and not low-lying. Placental Abnormalities: No evidence of previa. ESTIMATED GESTATIONAL AGE: Baseline: 21 weeks and 3 days ESTIMATED DATE OF DELIVERY: Baseline: January 06, 2025 BIOPHYSICAL ASSESSMENT: Amniotic Fluid Volume: Normal. Amniotic Fluid Index: Within normal limits. (8-24 cm normal range) Cardiac Motion: 158 beats per minute (average) Trunk and Limb Motion: Present. US/OB Limited (No Biometrics) IMPRESSION: Posterior placenta and not low-lying. position is breech. Reading Location: [place] [address] CC: Dr. Isabel Luz MD; No Primary Care Physician [employer] Administrator: Signed Normal [facility] Protein Test strip Ql (U)Ord ered By: Isabel Luz on 08-29-2024 Protein Ql (U) Negative Negative [facility] Squamous epithelial cells de tection in urine sediment by light microscopyOrdered By: Isabel Luz on 08-29-2024 Epithelial cells.squamous LM Ql (Urine sed) 0-5 SEEN /hpf 5-[address] [facility] Urinalysis, Completeon 08-29 EPI,SQUAMOUS 0-5 SEEN Normal 5-[address] [facility] Comment on above: Order Comment: JOEY TER SPECIMEN Performed By: #### L 400.0001 #### [facility] Laboratory [address] [place], [address] WBC 0-5 SEEN Normal 0-[address] [facility] Comment on above: Order Comment: JOEY TER SPECIMEN Performed By: #### L 400.0001 #### [facility] [address] [place], [address] BACTERIA 0 SEEN Normal None Seen [facility] Comment on above: Order Comment: JOEY TER SPECIMEN Performed By: #### L 400.0001 #### [facility] [address] [place], [address] Mucus Ql (Urine sed) 0 SEEN Normal [facility] Comment on above: Order Comment: JOEY TER SPECIMEN Performed By: #### L 400.0001 #### [facility] [address] [place], [address] Urine blood detectionOrdered By: Isabel Luz on 08-29-2024 Urine Occult Blood 10 /ul High Negative [facility] Urine clarityOrdered By: Bogdan Luz on 08-29-2024 Clarity (U) Clear Clear [facility] Urine color determinationOrd ered By: Isabel Luz on 08-29-2024 Color (U) Yellow Yellow [facility] Urine glucose detectionOrder ed By: Isabel Luz on 08-29-2024 Glucose Ql (U) Normal mg/dl Normal [facility] Urine leukocyte esterase det ection by dipstickOrdered By: Isabel Luz on 08-29-2024 Leukocyte esterase Test strip Ql (U) 25 /ul High Negative [facility] Urine pHOrdered By: Isabel thomas on 08-29-2024 pH (U) 7.0 [pH] 5.0 - 8.[address] [facility] Urine sediment bacteria coun t by microscopy (number/high power field)Ordered By: Isabel Luz on 08-29-2024 Bacteria LM.HPF (Urine sed) [#/Area] 0 /[HPF] None Seen [facility] Urine specific gravity measu rementOrdered By: Isabel Luz on 08-29-2024 Specific gravity (U) [Rel density] 1.005 1.002-1.[address] [facility] Urine urobilinogen measureme ntOrdered By: Isabel Luz on 08-29-2024 Urobilinogen Ql (U) Normal mg/dl Normal [facility] Urobilinogen Ql (U)Ordered B y: Isabel Luz on 08-29-2024 Urine Urobilinogen Normal mg/dl Normal [facility] White blood cell countOrdere d By: Isabel Luz on 08-29-2024 White blood cell count 0-5 SEEN /hpf 0-[address] [facility] Absolute lymphocyte countOrd ered By: Jocelyn Malcolm on 08-04-2024 Lymphocytes Auto (Unsp spec) [#/Vol] 2.39 10*3/uL 0.83-4.[address] [facility] Absolute neutrophil countOrd ered By: Jocelyn Malcolm on 08-04-2024 Neutrophils (Bld) [#/Vol] 7.2 10*3/uL 2.0-7.[address] [facility] Anion gap in Serum or Plasma Ordered By: Jocelyn Malcolm on 08-04-2024 Anion gap [Moles/Vol] 12 mmol/L 5-[address] [facility] Automated lymphocyte count a s percentage of total leukocytesOrdered By: Jocelyn Malcolm on 08-04-2024 Lymphocytes/100 WBC Auto (Unsp spec) 22.8 % 19-[address] [facility] BUN/creatinine ratioOrdered By: Jocelyn Malcolm on 08-04-2024 Urea nitrogen/Creatinine [Mass ratio] 18.1 mg/mg 10-[address] [facility] Basophil percentageOrdered B y: Jocelyn Malcolm on 08-04-2024 Basophils/100 WBC (Bld) 0.4 % 0-1 [facility] Bilirubin, totalOrdered By: Jocelyn Malcolm on 08-04-2024 Bilirubin [Mass/Vol] mg/dL 0.00-1.30 [facility] CBC W/Diff, Automatedon Absolute Lymph 2.39 X10 3/uL Normal 0.83-4.[address] [facility] Comment on above: Performed By: #### L 3890.6301, L100.0100, L509.4006, L500.4050, L3890.6006, L509.8002, L3890.6102, BTS, L501.9985 #### [facility] [address] [place], [address] Absolute Neut 7.2 X10 3/uL Normal 2.0-7.[address] [facility] Comment on above: Performed By: #### L 3890.6301, L100.0100, L509.4006, L500.4050, L3890.6006, L509.8002, L3890.6102, BTS, L501.9985 #### [facility] [address] [place], [address] Basophils/100 WBC (Bld) 0.4 % Normal 0-1 [facility] Comment on above: Performed By: #### L 3890.6301, L100.0100, L509.4006, L500.4050, L3890.6006, L509.8002, L3890.6102, BTS, L501.9985 #### [facility] [address] [place], [address] Eosinophils/100 WBC (Bld) 1.0 % Normal 0-[address] [facility] Comment on above: Performed By: #### L 3890.6301, L100.0100, L509.4006, L500.4050, L3890.6006, L509.8002, L3890.6102, BTS, L501.9985 #### [facility] [address] [place], [address] Erythrocyte distribution width (RBC) [Ratio] 14.4 % Normal 11.6-14.[address] [facility] Comment on above: Performed By: #### L 3890.6301, L100.0100, L509.4006, L500.4050, L3890.6006, L509.8002, L3890.6102, BTS, L501.9985 #### [facility] [address] [place], [address] ( Hematocrit (Bld) [Volume fraction] 32.9 % Low 37-[address] [facility] Comment on above: Performed By: #### L 3890.6301, L100.0100, L509.4006, L500.4050, L3890.6006, L509.8002, L3890.6102, BTS, L501.9985 #### [facility] [address] [place], [address] Hemoglobin (Bld) [Mass/Vol] 10.6 g/dL Low 12.0-15.[address] [facility] Comment on above: Performed By: #### L 3890.6301, L100.0100, L509.4006, L500.4050, L3890.6006, L509.8002, L3890.6102, BTS, L501.9985 #### [facility] [address] [place], [address] IG% 0.300 Normal 0.0-0.[address] [facility] Comment on above: Result Comment: IG% - Immature Granulocytes (promyelocytes, myelocytes and metamyelocytes) > 1% indicates that a LEFT SHIFT is Present. Performed By: #### L 3890.6301, L100.0100, L509.4006, L500.4050, L3890.6006, L509.8002, L3890.6102, BTS, L501.9985 #### [facility] [address] [place], [address] Lymphocytes/100 WBC (Bld) 22.8 % Normal 19-[address] [facility] Comment on above: Performed By: #### L 3890.6301, L100.0100, L509.4006, L500.4050, L3890.6006, L509.8002, L3890.6102, BTS, L501.9985 #### [facility] [address] [place], [address] MCH (RBC) [Entitic mass] 28.4 pg Normal 27.0-32.[address] [facility] Comment on above: Performed By: #### L 3890.6301, L100.0100, L509.4006, L500.4050, L3890.6006, L509.8002, L3890.6102, BTS, L501.9985 #### [facility] [address] [place], [address] MCHC (RBC) [Mass/Vol] 32.2 g/dL Normal 32-[address] [facility] Comment on above: Performed By: #### L 3890.6301, L100.0100, L509.4006, L500.4050, L3890.6006, L509.8002, L3890.6102, BTS, L501.9985 #### [facility] [address] [place], [address] MCV (RBC) [Entitic vol] 88.2 fL Normal 81-99 [facility] Comment on above: Performed By: #### L 3890.6301, L100.0100, L509.4006, L500.4050, L3890.6006, L509.8002, L3890.6102, BTS, L501.9985 #### [facility] [address] [place], [address] Monocytes/100 WBC (Bld) 7.5 % Normal 0-10 [facility] Comment on above: Performed By: #### L 3890.6301, L100.0100, L509.4006, L500.4050, L3890.6006, L509.8002, L3890.6102, BTS, L501.9985 #### [facility] [address] [place], [address] Neutrophils/100 WBC (Bld) 68.0 % Normal 47-[address] [facility] Comment on above: Performed By: #### L 3890.6301, L100.0100, L509.4006, L500.4050, L3890.6006, L509.8002, L3890.6102, BTS, L501.9985 #### [facility] [address] [place], [address] Nucleated RBC (Bld) [#/Vol] 0 10*3/uL Normal 0-[address] [facility] Comment on above: Performed By: #### L 3890.6301, L100.0100, L509.4006, L500.4050, L3890.6006, L509.8002, L3890.6102, BTS, L501.9985 #### [facility] [address] [place], [address] Platelet mean volume (Bld) [Entitic vol] 10.4 fL Normal 6.2-12.[address] [facility] Comment on above: Performed By: #### L 3890.6301, L100.0100, L509.4006, L500.4050, L3890.6006, L509.8002, L3890.6102, BTS, L501.9985 #### [facility] [address] [place], [address] Platelets (Bld) [#/Vol] 285 10*3/uL Normal 150-[address] [facility] Comment on above: Performed By: #### L 3890.6301, L100.0100, L509.4006, L500.4050, L3890.6006, L509.8002, L3890.6102, BTS, L501.9985 #### [facility] [address] [place], [address] RBC (Bld) [#/Vol] 3.73 10*6/uL Low 4.2-5.4 [facility] Comment on above: Performed By: #### L 3890.6301, L100.0100, L509.4006, L500.4050, L3890.6006, L509.8002, L3890.6102, BTS, L501.9985 #### [facility] [address] [place], [address] RDW SD 46.3 fl High 35.1-43.[address] [facility] Comment on above: Performed By: #### L 3890.6301, L100.0100, L509.4006, L500.4050, L3890.6006, L509.8002, L3890.6102, BTS, L501.9985 #### [facility] [address] [place], [address] WBC (Bld) [#/Vol] 10.5 10*3/uL Normal 4.4-11.0 [facility] Comment on above: Performed By: #### L 3890.6301, L100.0100, L509.4006, L500.4050, L3890.6006, L509.8002, L3890.6102, BTS, L501.9985 #### [facility] [address] [place], [address] Carbon dioxide, total [Moles /volume] in Central venous bloodOrdered By: Jocelyn Malcolm on 08-04-2024 CO2 [Moles/Vol] 20.0 mmol/L Low 21.0-32.[address] [facility] Chloride assayOrdered By: Robert Malcolm on 08-04-2024 Chloride [Moles/Vol] 105 mmol/L 98-108 [facility] Metabolic Prof ilon 08-04-2024 Albumin [Mass/Vol] 3.6 g/dL Normal 3.5-5.0 [facility] Comment on above: Performed By: #### L 3890.6301, L100.0100, L509.4006, L500.4050, L3890.6006, L509.8002, L3890.6102, BTS, L501.9985 #### [facility] [address] [place], [address] Albumin/Globulin [Mass ratio] 1.2 {ratio} Normal 0.9-2.[address] [facility] Comment on above: Performed By: #### L 3890.6301, L100.0100, L509.4006, L500.4050, L3890.6006, L509.8002, L3890.6102, BTS, L501.9985 #### [facility] [address] [place], [address] ALK PHOS 65 U/L Normal 35-[address] [facility] Comment on above: Performed By: #### L 3890.6301, L100.0100, L509.4006, L500.4050, L3890.6006, L509.8002, L3890.6102, BTS, L501.9985 #### [facility] [address] [place], [address] ALT [Catalytic activity/Vol] 10 U/L Normal <=[address] [facility] Comment on above: Performed By: #### L 3890.6301, L100.0100, L509.4006, L500.4050, L3890.6006, L509.8002, L3890.6102, BTS, L501.9985 #### [facility] [address] [place], [address] AST [Catalytic activity/Vol] 13 U/L Normal <=[address] [facility] Comment on above: Performed By: #### L 3890.6301, L100.0100, L509.4006, L500.4050, L3890.6006, L509.8002, L3890.6102, BTS, L501.9985 #### [facility] [address] [place], [address] BUN/CRE 18.1 RATIO Normal 10-[address] [facility] Comment on above: Performed By: #### L 3890.6301, L100.0100, L509.4006, L500.4050, L3890.6006, L509.8002, L3890.6102, BTS, L501.9985 #### [facility] [address] [place], [address] Calcium [Mass/Vol] 8.9 mg/dL Normal 7.6-11.0 [facility] Comment on above: Performed By: #### L 3890.6301, L100.0100, L509.4006, L500.4050, L3890.6006, L509.8002, L3890.6102, BTS, L501.9985 #### [facility] [address] [place], [address] Chloride [Moles/Vol] 105 mmol/L Normal 98-108 [facility] Comment on above: Performed By: #### L 3890.6301, L100.0100, L509.4006, L500.4050, L3890.6006, L509.8002, L3890.6102, BTS, L501.9985 #### [facility] [address] [place], [address] CO2 [Moles/Vol] 20.0 mmol/L Low 21.0-32.[address] [facility] Comment on above: Performed By: #### L 3890.6301, L100.0100, L509.4006, L500.4050, L3890.6006, L509.8002, L3890.6102, BTS, L501.9985 #### [facility] [address] [place], [address] Creatinine [Mass/Vol] 0.56 mg/dL Low 0.70-1.[address] [facility] Comment on above: Performed By: #### L 3890.6301, L100.0100, L509.4006, L500.4050, L3890.6006, L509.8002, L3890.6102, BTS, L501.9985 #### [facility] [address] [place], [place], [id number] GAP 12 Normal 5-[address] [facility] Comment on above: Performed By: #### L 3890.6301, L100.0100, L509.4006, L500.4050, L3890.6006, L509.8002, L3890.6102, BTS, L501.9985 #### [facility] [address] [place], [place], [address] GFR/1.73 sq M.predicted among non-blacks MDRD (S/P/Bld) [Vol rate/Area] 127 mL/min/{1.73_m2} Normal >[address] [facility] Comment on above: Result Comment: mL/m in/1.73m2 CKD-EPI Creatinine Equation (2020) Performed By: #### L 3890.6301, L100.0100, L509.4006, L500.4050, L3890.6006, L509.8002, L3890.6102, BTS, L501.9985 #### [facility] [address] [place], [address] Globulin (S) [Mass/Vol] 3.0 g/dL Normal 2.2-4.2 [facility] Comment on above: Performed By: #### L 3890.6301, L100.0100, L509.4006, L500.4050, L3890.6006, L509.8002, L3890.6102, BTS, L501.9985 #### [facility] [address] [place], [address] Glucose [Mass/Vol] 76 mg/dL Normal 70-99 [facility] Comment on above: Performed By: #### L 3890.6301, L100.0100, L509.4006, L500.4050, L3890.6006, L509.8002, L3890.6102, BTS, L501.9985 #### [facility] [address] [place], [address] Potassium [Moles/Vol] 4.1 mmol/L Normal 3.3-5.[address] [facility] Comment on above: Performed By: #### L 3890.6301, L100.0100, L509.4006, L500.4050, L3890.6006, L509.8002, L3890.6102, BTS, L501.9985 #### [facility] [address] [place], [address] Sodium [Moles/Vol] 137 mmol/L Normal 133-145 [facility] Comment on above: Performed By: #### L 3890.6301, L100.0100, L509.4006, L500.4050, L3890.6006, L509.8002, L3890.6102, BTS, L501.9985 #### [facility] [address] [place], [address] T BILI < 0.15 Normal 0.00-1.[address] [facility] Comment on above: Performed By: #### L 3890.6301, L100.0100, L509.4006, L500.4050, L3890.6006, L509.8002, L3890.6102, BTS, L501.9985 #### [facility] [address] [place], [place], [id number] (687) T PROT 6.6 g/dL Normal 5.9-8.[address] [facility] Comment on above: Performed By: #### L 3890.6301, L100.0100, L509.4006, L500.4050, L3890.6006, L509.8002, L3890.6102, BTS, L501.9985 #### [facility] [address] [place], [place], [id number] Urea nitrogen [Mass/Vol] 10 mg/dL Normal 4-[address] [facility] Comment on above: Performed By: #### L 3890.6301, L100.0100, L509.4006, L500.4050, L3890.6006, L509.8002, L3890.6102, BTS, L501.9985 #### [facility] [address] [place], [place], [id number] Eosinophil percentageOrdered By: Jocelyn Malcolm on 08-04-2024 Eosinophils/100 WBC (Bld) 1.0 % 0-[address] [facility] Erythrocyte distribution wid th ratioOrdered By: Jocelyn Malcolm on 08-04-2024 Erythrocyte distribution width (RBC) [Ratio] 14.4 % 11.6-14.[address] [facility] Erythrocyte distribution wid th standard deviationOrdered By: Jocelyn Malcolm on 08-04-2024 Erythrocyte distribution width (RBC) [Entitic vol] 46.3 fL High 35.1-43.[address] [facility] Erythrocyte distribution width (RBC) [Ratio] 46.3 fl High 35.1-43.[address] [facility] GFR/1.73 sq M.predicted alvin g non-blacks MDRD (S/P/Bld) [Vol rate/Area]Ordered By: Jocelyn Malcolm on 08-04-2024 Estimated GFR (MDRD) Non-Af Amer 127 >[address] [facility] Comment on above: mL/min/1.73m2 CKD-EP I Creatinine Equation (2020) Glomerular filtration rate ( GFR) estimation/1.73 sq m using serum, plasma, or whole bOrdered By: Jocelyn Malcolm on 08-04-2024 GFR/1.73 sq M.predicted among non-blacks MDRD (S/P/Bld) [Vol rate/Area] 127 mL/min/{1.73_m2} >[address] [facility] Comment on above: mL/min/1.73m2 CKD-EP I Creatinine Equation (2020) HBV surface Ag Ql (S)Ordered By: Jocelyn Malcolm on 08-04-2024 Hepatitis B Surface Antigen Non-Reactive Nonreactive [facility] Comment on above: Reactive: Presumptiv e evidence of HBV. Repeatedly reactive samples must be confirmed using a neutralization test ([employer] HBsAg Confirmatory Test)Non-Reactive: HBsAg not detected; does not exclude the possibility of exposure to HBV Hematocrit Auto (Bld) [Volum e fraction]Ordered By: Jocelyn Malcolm on 08-04-2024 Hematocrit (Bld) [Volume fraction] 32.9 % Low 37-[address] [facility] Hemoglobin A1con 08-04-2024 HbA1c (Bld) [Mass fraction] 5.5 % Low <=5.[address] [facility] Comment on above: Performed By: #### L 3890.6301, L100.0100, L509.4006, L500.4050, L3890.6006, L509.8002, L3890.6102, BTS, L501.9985 #### [facility] [address] [place], [address] Hemoglobin A1c percentageOrd ered By: Jocelyn Malcolm on 08-04-2024 HbA1c (Bld) [Mass fraction] 5.5 % Low >5.[address] [facility] Hemoglobin measurementOrdere d By: Jocelyn Malcolm on 08-04-2024 Hemoglobin (Bld) [Mass/Vol] 10.6 g/dL Low 12.0-15.[address] [facility] Hepatitis C antibodyOrdered By: Jocelyn Malcolm on 08-04-2024 Hepatitis C Antibody Non-Reactive Nonreactive [facility] Comment on above: Reactive: Presumptiv e evidence of antibodies to HCV. Follow CDC recommendations for supplemental testing.Non-Reactive: Antibodies to HCV were not detected; does not exclude the possibility of exposure to HCVReactive Results are presumptive evidence of antibodies to HCV. Follow CDC recommendations for supplemental testing.Order confirmation testing: HCV Quant by PCR testing - HCVPCR #[id number] Non Reactive: < 0.8 Equivocal: >/= 0.8 to < 1.0 Reactive: >/= 1.0The CDC requires that a reactive/equivocal HCV antibody result be sent out for confirmation. HCV Quant by PCR testing. Immature granulocytes/100 WB C Auto (Bld)Ordered By: Jocelyn Malcolm on 08-04-2024 Immature granulocytes/100 WBC (Bld) 0.300 % 0.0-0.[address] [facility] Comment on above: IG% - Immature Granu locytes (promyelocytes, myelocytes and metamyelocytes) > 1% indicates that a LEFT SHIFT is Present. L3890.6006on 08-04-2024 HIV Non-Reactive Normal Nonreactive [facility] Comment on above: Result Comment: Non- Reactive Reactive Repeatedly reactive samples must be confirmed according to CDC recommended confirmatory algorithms. The subresults for either HIVAG or AHIV can be used as an aid in the selection of the confirmation algorithm for reactive samples. Send out specimens with Reactive results to [facility] for confirmation. Order the HIV antibody detection and differentiation: lc#[id number] Performed By: #### L 3890.6301, L100.0100, L509.4006, L500.4050, L3890.6006, L509.8002, L3890.6102, BTS, L501.9985 #### [facility] [place], [place], [id number] L3890.6102on 08-04-2024 HEP B Surf Ag Non-Reactive Normal Nonreactive [facility] Comment on above: Result Comment: Reac tive: Presumptive evidence of HBV. Repeatedly reactive samples must be confirmed using a neutralization test ([employer] HBsAg Confirmatory Test) Non-Reactive: HBsAg not detected; does not exclude the possibility of exposure to HBV Performed By: #### L 3890.6301, L100.0100, L509.4006, L500.4050, L3890.6006, L509.8002, L3890.6102, BTS, L501.9985 #### [facility] [address] [place], [place], [address] L3890.6301on 08-04-2024 Hepatitis C Ab Non-Reactive Normal Nonreactive [facility] Comment on above: Result Comment: Reac tive: Presumptive evidence of antibodies to HCV. Follow CDC recommendations for supplemental testing. Non-Reactive: Antibodies to HCV were not detected; does not exclude the possibility of exposure to HCV Reactive Results are presumptive evidence of antibodies to HCV. Follow CDC recommendations for supplemental testing. Order confirmation testing: HCV Quant by PCR testing - HCVPCR #[id number] Non Reactive: < 0.8 Equivocal: >/= 0.8 to < 1.0 Reactive: >/= 1.0 The CDC requires that a reactive/equivocal HCV antibody result be sent out for confirmation. HCV Quant by PCR testing. Performed By: #### L 3890.6301, L100.0100, L509.4006, L500.4050, L3890.6006, L509.8002, L3890.6102, BTS, L501.9985 #### [facility] [address] [place], [place], [address] L509.4006on 08-04-2024 Rubella IgG REAC Normal Nonreactive [facility] Comment on above: Result Comment: Anti body Result: Interpretation Non-Reactive: Non-Immune Reactive: Immune The following results were obtained with the [employer] Rubella IgG assay. Results from assays of other manufacturers cannot be used interchangeably. Performed By: #### L 3890.6301, L100.0100, L509.4006, L500.4050, L3890.6006, L509.8002, L3890.6102, BTS, L501.9985 #### [facility] [address] [place], [address] L509.8002on 08-04-2024 Syphilis Abs Non-Reactive Normal Nonreactive [facility] Comment on above: Performed By: #### L 3890.6301, L100.0100, L509.4006, L500.4050, L3890.6006, L509.8002, L3890.6102, BTS, L501.9985 #### [facility] [address] [place], [address] Laboratory - Chemistry and C hemistry - challengeOrdered By: Jocelyn Malcolm on 08-04-2024 AST [Catalytic activity/Vol] 13 U/L <[address] [facility] - Chemistry and C hemistry - challengeOrdered By: Isabel Luz on 08-04-2024 Glucose Ql (U) Negative [facility] - Microbiology an d Antimicrobial susceptibilityOrdered By: Jocelyn Malcolm on 08-04-2024 HBV surface Ag Ql (S) Non-Reactive Nonreactive [facility] Comment on above: Reactive: Presumptiv e evidence of HBV. Repeatedly reactive samples must be confirmed using a neutralization test ([employer] HBsAg Confirmatory Test)Non-Reactive: HBsAg not detected; does not exclude the possibility of exposure to HBV Laboratory - UrinalysisOrder ed By: Isabel Luz on 08-04-2024 Protein Ql (U) Negative [facility] Lymphocytes Auto (Unsp spec) [#/Vol]Ordered By: Jocelyn Malcolm on 08-04-2024 Lymphocytes (Bld) [#/Vol] 2.39 10*3/uL 0.83-4.[address] [facility] Lymphocytes/100 WBC Auto (Un sp spec)Ordered By: Jocelyn Malcolm on 08-04-2024 Lymphocytes/100 WBC (Bld) 22.8 % 19-[address] [facility] MCV (mean corpuscular volume ) determinationOrdered By: Jocelyn Malcolm on 08-04-2024 MCV (RBC) [Entitic vol] 88.2 fL 81-99 [facility] Mean corpuscular hemoglobin (MCH) determinationOrdered By: Jocelyn Malcolm on 08-04-2024 MCH (RBC) [Entitic mass] 28.4 pg 27.0-32.[address] [facility] Mean corpuscular hemoglobin concentration (MCHC) determinationOrdered By: Jocelyn Malcolm on 08-04-2024 MCHC (RBC) [Mass/Vol] 32.2 g/dL 32-[address] [facility] Mean platelet volume determi nationOrdered By: Jocelyn Malcolm on 08-04-2024 Platelet mean volume (Bld) [Entitic vol] 10.4 fL 6.2-12.[address] [facility] Monocyte percentageOrdered B y: Jocelyn Malcolm on 08-04-2024 Monocytes/100 WBC (Bld) 7.5 % 0-10 [facility] Neutrophil percentageOrdered By: Jocelyn Malcolm on 08-04-2024 Neutrophils/100 WBC (Bld) 68.0 % 47-[address] [facility] No Panel InformationOrdered By: Jocelyn Malcolm on 08-04-2024 HIV (1&2) Antibody Non-Reactive Nonreactive [facility] Comment on above: Non-ReactiveReactive Repeatedly reactive samples must be confirmed according to CDC recommended confirmatory algorithms. The subresults for either HIVAG or AHIV can be used as an aid in the selection of the confirmation algorithm for reactive samples.Send out specimens with Reactive results to [facility] for confirmation.Order the HIV antibody detection and differentiation: #[id number] Nucleated red blood cell per centageOrdered By: Jocelyn Malcolm on 08-04-2024 Nucleated RBC/100 WBC (Bld) [Ratio] 0 % 0-[address] [facility] Head Of Physics Office Visit Reporton 08-04-2024 Head Of Physics Office Visit Report [facility] [address], [address] [place] [address] OFFICE VISIT Date of Service: 08/04/24 MR#: [id number] Acct: [id number] Name: AYE WEIR Rep #: [id number] 1 : 1995 Provider: Dr. 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 Is patient in pain?: No Feel stressed/tense/nervous/a nxious/difficulty sleeping: not at all Allergies morphine Allergy (Intermediate, Verified 08/04/24 09:22) Hives Medications ???Medication ???Instructions ???Recorded ???Confirmed ???Type albuterol sulfate 90 mcg/actuation 2 puff inhalation Q6H PRN 08/04/24 History aerosol inhaler bupropion HCl 300 mg 24 hr tablet, 300 mg PO QAM 06/09/24 08/04/24 History extended release (Wellbutrin XL) metoprolol succinate 50 mg 50 mg PO QDAY 06/09/24 08/04/24 Hi story tablet,extended release 24 hr multivit-min no.71-iron fum 28 cap PO 06/09/24 08/04/24 History mg-folate no.1 1 mg-dha 300 mg capsule (PNV-Dudley) Last Menstrual Period: 04/01/24 Zika: Zika virus screening: Negative : No Have you fallen in the past year?: No PFSH PFSH Medical History Hx of abnormal cervical Pap smear Asthma Surgical History H/O dilation and curettage H/O gastric sleeve History of surgical removal of ganglion cyst S/P tendon repair Family History Grandmother Cancer Maternal- Pancreatic ca Grandmother Breast cancer, Onset Age: 40 Paternal Mother Cancer, Onset Age: 30 cervical Social History adopted: No household members: significant other and children number of children: 3 current occupational status: employed 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[employer] pets and animals: No history of recent travel: No sexually active: Yes Smoking Status: Never smoker alcohol intake: never substance use type: does not use well-balanced diet: daily or most days caffeine: No eating out: 1-3 times/week during the past year weight has: decreased > 10 lbs what type of physical activity do you participate in: none lupis/latter day: None seatbelt use: sometimes do you feel safe at home: Yes additional social history: Boyfriend- Gretchen- Works at the [employer] History 4 Elective abortions Hx Para 3 Spontaneous abortions Hx # Term Pregnancies Ectopic pregnancies Hx # Pregnancies Multiple births # of living children 3 Past Pregnancies Del. Date Name GA/Weeks Outcome Route Bth Weight Infant Gen Labor Lgth Anesthesia Del Locatn Provider FOB 08/21/16 [place] 39 live - full term 9# Female epidural S [facility] Dr. Aaron Almanza 05/05/19 [place] 39 live - full term 8#1oz Male [facility] Dr. Castillo Almanza 06/06/20 [place] 38 live - full term 9#6oz Male epidural [facility] Dr. Castillo Almanza Delivery Date: 05/05/19 Last Updated by: Christy Diaz shoulder dystocia HPI 18 WK OB Details: AYE WEIR is a 29 year old who presents for routine OB visit. OB Visit DOMONIQUE Calculator Estimated Delivery Date Method Current WG Current Estimate 01/06/25 LMP (Certain) 17w 6d Expected Delivery Route/Plan Labor Preferences- CB/BF classes: [] labor support person: [] labor intervention preferences: [] pain management options preferred: [] cut cord/dad catch: [] : [] PP control planned: [] discussed possible routes of delivery and associated risks: [] special requests: [] Specific Issue/Plans Covid status: [] Flu vaccine: [] Tdap vaccine: [] Rhogam: [] LARC form signed: [] Problem list reviewed and updated with the most current plan of care details and appropriate orders placed. Relevant counseling for the gestational age provided. Continue routine care and follow up unless otherwise noted in visit notes/problem list details Initial Weight: 203 lb Date -???-???-???-???-???-??? -???-???-???-???-???-??? - EGA Weight BP Urine Prot -???-???-???-???-???-??? -???-???-???-???-???-??? - Glucose FHR FuHt Pres Dilation -???-???-???-???-???-??? -???-???-???-???-???-??? - Effaced St Visit Note 06/09/24 -???-???-???-???-???-??? -???-???-???-???-???-??? - 9w 6d 203 lb (+0 oz) 111/73 -???-???-???-???-???-??? -???-???-???-???-???-??? - 175 -?? (more content not included)... Normal [facility] Platelet countOrdered By: Robert Malcolm on 08-04-2024 Platelets (Bld) [#/Vol] 285 10*3/uL 150-[address] [facility] Potassium (Unsp spec) [Mass/ Vol]Ordered By: Jocelyn Malcolm on 08-04-2024 Potassium [Moles/Vol] 4.1 mmol/L 3.3-5.[address] [facility] Potassium measurement (mass/ volume)Ordered By: Jocelyn Malcolm on 08-04-2024 Potassium (Unsp spec) [Mass/Vol] 4.1 mmol/L 3.3-5.[address] [facility] RBC Auto (Bld) [#/Vol]Ordere d By: Jocelyn Malcolm on 08-04-2024 RBC (Bld) [#/Vol] 3.73 10*6/uL Low 4.2-5.4 [facility] Rubella immune status determ ination by IgG antibody assayOrdered By: Jocelyn Malcolm on 08-04-2024 Rubella IgG Antibody REAC Nonreactive [facility] Comment on above: Antibody Result: Int erpretationNon-Reactive: Non-ImmuneReactive: ImmuneThe following results were obtained with the [employer] Rubella IgG assay. Results from assays of other manufacturers cannot be used interchangeably. Serum creatinine measurement (mass/volume)Ordered By: Jocelyn Malcolm on 08-04-2024 Creatinine [Mass/Vol] 0.56 mg/dL Low 0.70-1.[address] [facility] Serum globulin measurementOr dered By: Jocelyn Malcolm on 08-04-2024 Globulin (S) [Mass/Vol] 3.0 g/dL 2.2-4.2 [facility] Serum glucose measurement (m ass/volume)Ordered By: Jocelyn Malcolm on 08-04-2024 Glucose [Mass/Vol] 76 mg/dL 70-99 [facility] Serum or plasma alanine machado otransferase (ALT) measurementOrdered By: Jocelyn Malcolm on 08-04-2024 ALT [Catalytic activity/Vol] 10 U/L <[address] [facility] Serum or plasma albumin shailesh urement (mass/volume)Ordered By: Jocelyn Malcolm on 08-04-2024 Albumin [Mass/Vol] 3.6 g/dL 3.5-5.0 [facility] Serum or plasma albumin/glob ulin mass ratioOrdered By: Jocelyn Malcolm on 08-04-2024 Albumin/Globulin [Mass ratio] 1.2 {ratio} 0.9-2.[address] [facility] Serum or plasma alkaline andres sphatase measurementOrdered By: Jocelyn Malcolm on 08-04-2024 ALP [Catalytic activity/Vol] 65 U/L 35-[address] [facility] Serum or plasma calcium shailesh urement (mass/volume)Ordered By: Jocelyn Malcolm on 08-04-2024 Calcium [Mass/Vol] 8.9 mg/dL 7.6-11.0 [facility] Serum or plasma urea nitroge n measurement (mass/volume)Ordered By: Jocelyn Malcolm on 08-04-2024 Urea nitrogen [Mass/Vol] 10 mg/dL 4-[address] [facility] Sodium levelOrdered By: Rosi Malcolm on 08-04-2024 Sodium [Moles/Vol] 137 mmol/L 133-145 [facility] T. pallidum abOrdered By: Robert Malcolm on 08-04-2024 Syphilis Total Antibody Non-Reactive Nonreactiv e [facility] Total proteinOrdered By: Tucker Malcolm on 08-04-2024 Protein [Mass/Vol] 6.6 g/dL 5.9-8.4 [facility] Type AND Screenon 08-04-2024 Ab SCREEN GEL Negative Normal [facility] Comment on above: Order Comment: PN Performed By: #### L 3890.6301, L100.0100, L509.4006, L500.4050, L3890.6006, L509.8002, L3890.6102, BTS, L501.9985 #### [facility] [address] [place], [address] White blood cell (WBC) count Ordered By: Jocelyn Malcolm on 08-04-2024 WBC (Bld) [#/Vol] 10.5 10*3/uL 4.4-11.0 [facility] - Chemistry and C hemistry - challengeOrdered By: Adelaida Robertson on 07-11-2024 Glucose Ql (U) Negative [facility] - UrinalysisOrder ed By: Adelaida Robertson on 07-11-2024 Protein Ql (U) Negative [facility] Head Of Physics Office Visit Reporton 07-11-2024 Head Of Physics Office Visit Report [facility]'s [address], [address] [place] [address] OFFICE VISIT Date of Service: 07/11/24 MR#: [id number] Acct: [id number] Name: AYE WEIR Rep #: [id number] : 1995 Provider: Dr. 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 Is patient in pain?: No Allergies morphine Allergy (Intermediate, Verified 07/11/24 14:21) Hives Medications ???Medication ???Instructions ???Recorded ???Confirmed ???Type albuterol sulfate 90 mcg/actuation 2 puff inhalation Q6H PRN 07/11/24 History aerosol inhaler bupropion HCl 300 mg 24 hr tablet, 300 mg PO QAM 06/09/24 07/11/24 History extended release (Wellbutrin XL) metoprolol succinate 50 mg 50 mg PO QDAY 06/09/24 07/11/24 Hi story tablet,extended release 24 hr multivit-min no.71-iron fum 28 cap PO 06/09/24 07/11/24 History mg-folate no.1 1 mg-dha 300 mg capsule (PNV-Dudley) Last Menstrual Period: 04/01/24 Zika: Zika virus screening: Negative : No PFSH PFSH Medical History Hx of abnormal cervical Pap smear Asthma Surgical History H/O dilation and curettage H/O gastric sleeve History of surgical removal of ganglion cyst S/P tendon repair Family History Grandmother Cancer Maternal- Pancreatic ca Grandmother Breast cancer, Onset Age: 40 Paternal Mother Cancer, Onset Age: 30 cervical Social History adopted: No household members: significant other and children number of children: 3 current occupational status: employed 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[employer] pets and animals: No history of recent travel: No sexually active: Yes Smoking Status: Never smoker alcohol intake: never substance use type: does not use well-balanced diet: daily or most days caffeine: No eating out: 1-3 times/week during the past year weight has: decreased > 10 lbs what type of physical activity do you participate in: none lupis/latter day: None seatbelt use: sometimes do you feel safe at home: Yes additional social history: Boyfriend- Gretchen- Works at the [employer] History 4 Elective abortions Hx Para 3 Spontaneous abortions Hx # Term Pregnancies Ectopic pregnancies Hx # Pregnancies Multiple births # of living children 3 Past Pregnancies Del. Date Name GA/Weeks Outcome Route Bth Weight Gen Labor Lgth Anesthesia Del Locatn Provider FOB 08/21/16 Layo 39 live - full term 9# Female epidural S [facility] Aaron Almanza 05/05/19 Rolando 39 live - full term 8#1oz Male none [facility] emilia Almanza 06/06/20 Melissa 38 live - full term 9#6oz Male epidural [facility] Dr. Castillo Almanza Delivery Date: 05/05/19 Last Updated by: Christy Diaz shoulder dystocia HPI 14 WK OB Details: AYE WEIR is a 29 year old who presents for routine OB visit. OB Visit DOMONIQUE Calculator Estimated Delivery Date Method Current WG Current Estimate 01/06/25 LMP (Certain) 14w 3d Expected Delivery Route/Plan Labor Preferences- CB/BF classes: [] labor support person: [] labor intervention preferences: [] pain management options preferred: [] cut cord/dad catch: [] : [] PP control planned: [] discussed possible routes of delivery and associated risks: [] special requests: [] Specific Issue/Plans Covid status: [] Flu vaccine: [] Tdap vaccine: [] Rhogam: [] LARC form signed: [] Problem list reviewed and updated with the most current plan of care details and appropriate orders placed. Relevant counseling for the gestational age provided. Continue routine care and follow up unless otherwise noted in visit notes/problem list details Initial Weight: 203 lb Date -???-???-???-???-???-??? -???-???-???-???-???-??? - EGA Weight BP Urine Prot -???-???-???-???-???-??? -???-???-???-???-???-??? - Glucose FHR FuHt Pres Dilation -???-???-???-???-???-??? -???-???-???-???-???-??? - Effaced St Visit Note 06/09/24 -???-???-???-???-???-??? -???-???-???-???-???-??? - 9w 6d 203 lb (+0 oz) 111/73 -???-???-???-???-???-??? -???-???-???-???-???-??? - 175 -???-???-???-???-???-??? -???-???-???-???-???-??? - KW- CRL cons with dates. declines NIPT. on Metoprol (more content not included)... Normal [facility] Chlamydia/GC TIFFANIE aptimaon CHLAMY,NUC ACID Negative Normal Negative [facility] Comment on above: Performed By: #### L 3890.6301, L100.0100, L509.4006, L500.4050, L3890.6006, L509.8002, L3890.6102, BTS, L501.9985 #### [facility] [address] [place], [place], [id number] GC BY NUC ACID Negative Normal Negative [facility] Comment on above: Result Comment: Perf ormed at: =G - [facility] [address] [id number] [place] Manager: Dali Krueger MD, Phone: [phone] Performed By: #### L 3890.6301, L100.0100, L509.4006, L500.4050, L3890.6006, L509.8002, L3890.6102, BTS, L501.9985 #### [facility] [address] [place], [address] Urine Cultureon 06-10-2024 URC Culture exhibits no growth. Normal [facility] Comment on above: Performed By: #### L 3890.6301, L100.0100, L509.4006, L500.4050, L3890.6006, L509.8002, L3890.6102, BTS, L501.9985 #### [facility] [place], [address] C. trachomatis rRNA TIFFANIE+prob e Ql (Unsp spec)Ordered By: Jocelyn Malcolm on 06-09-2024 Chlamydia DNA (TIFFANIE) Negative Negative [facility] Neisseria gonorrhoeae nuclei c acid detection by amplified probe techniqueOrdered By: Jocelyn Malcolm on 06-09-2024 N. gonorrhoeae DNA TIFFANIE+probe Ql (Unsp spec) Negative Negative [facility] Comment on above: Performed at: =[address] [id number] Director: Dali Krueger MD, Phone: [phone] Head Of Physics Office Visit Reporton 06-09-2024 Head Of Physics Office Visit Report [facility] [address], [address] [place] [address] OFFICE VISIT Date of Service: 06/09/24 MR#: [id number] Acct: [id number] Name: AYE WEIR Rep #: [id number] : 1995 Provider: RICKY Trivedi ams Age/Sex: 29/F Location: [place] Status: Signed Intake Vital Signs 06/09/24 11:31 Height 5 ft 6 in Weight: 203 lb BMI 32.8 BP 111/73 Intake Visit Reasons: LMP 04/01 DOMONIQUE 01/06 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 Is patient in pain?: No Allergies morphine Allergy (Intermediate, Verified 06/09/24 11:33) Hives Medications ???Medication ???Instructions ???Recorded ???Confirmed ???Type albuterol sulfate 90 mcg/actuation 2 puff inhalation Q6H PRN 06/09/24 06/09/24 History aerosol inhaler bupropion HCl 300 mg 24 hr tablet, 300 mg PO QAM 06/09/24 06/09/24 History extended release (Wellbutrin XL) metoprolol succinate 50 mg 50 mg PO QDAY 06/09/24 06/09/24 History tablet,extended release 24 hr multivit-min no.71-iron fum 28 cap PO 06/09/24 06/09/24 History mg-folate no.1 1 mg-dha 300 mg capsule (PNV-Dudley) Last Menstrual Period: 04/01/24 Zika: Zika virus screening: Negative : Yes Have you fallen in the past year?: No PFSH PFSH Medical History Hx of abnormal cervical Pap smear Asthma Surgical History H/O dilation and curettage H/O gastric sleeve History of surgical removal of ganglion cyst S/P tendon repair Family History Grandmother Cancer Maternal- Pancreatic ca Grandmother Breast cancer, Onset Age: 40 Paternal Mother Cancer, Onset Age: 30 cervical Social History adopted: No household members: significant other and children number of children: 3 service: No current occupational status: employed 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[employer] pets and animals: No history of recent travel: No sexually active: Yes Smoking Status: Never smoker alcohol intake: never substance use type: does not use well-balanced diet: daily or most days caffeine: No eating out: 1-3 times/week during the past year weight has: decreased > 10 lbs what type of physical activity do you participate in: none lupis/latter day: None seatbelt use: sometimes do you feel safe at home: Yes additional social history: Boyfriend- Gretchen- Works at the [employer] History 4 Elective abortions Hx Para 3 Spontaneous abortions Hx # Term Pregnancies Ectopic pregnancies Hx # Pregnancies Multiple births # of living children 3 Past Pregnancies Del. Date Name GA/Weeks Outcome Route Bth Weight Infant Gen Labor Lgth Anesthesia Del Locatn Provider FOB 08/21/16 Layo 39 live - full term 9# Female epidural S [facility] Dr. Aaron Almanza 05/05/19 Rolando 39 live - [facility] Melissa 38 live - full term 9#6oz Male epidural [facility] Dr. Castillo Almanza Delivery Date: 05/05/19 Last Updated by: Christy Diaz shoulder dystocia HPI LMP 04/01 DOMONIQUE 01/06 Details: AYE WEIR is a 29 year old who presents for New OB visit. OB Visit DOMONIQUE Calculator Estimated Delivery Date Method Current WG Current Estimate 01/06/25 LMP (Certain) 9w 6d Comments: HIV: Urine Culture: Sequential Screen: NIPT Screen: Estimated Due Date: 01/06/25 Expected Delivery Route/Plan Labor Preferences- CB/BF classes: [] labor support person: [] labor intervention preferences: [] pain management options preferred: [] cut cord/dad catch: [] : [] PP control planned: [] discussed possible routes of delivery and associated risks: [] special requests: [] Specific Issue/Plans Covid status: [] Flu vaccine: [] Tdap vaccine: [] Rhogam: [] LARC form signed: [] Problem list reviewed and updated with the most current plan of care details and appropriate orders placed. Relevant counseling for the gestational age provided. Continue routine care and follow up unless otherwise noted in visit notes/problem list details Initial Weight: 203 lb Date -???-???-???-???-???-??? -???-???-???-???-???-??? - EGA Weight BP Urine Prot -???-???-???-???-???-??? -???-???-???-???-???-??? - Glucose FHR FuHt Pres Dilation -???-???-???-???-???-??? -???-???-???-???-???-??? - Effaced St Visit Note 06/09/24 -???-???-???-???-???-??? -???-???-???-???-???-??? - 9w 6d 203 lb (+0 oz) 111/73 -???-???-???-???-???-??? -???-???-???-???-? (more content not included)... Normal [facility] Protein+Creatinine Ratio,Uri neon 06-09-2024 PROT:CRE RATIO 84 mg/g CRE Normal 0-[address] [facility] Comment on above: Performed By: #### L 3890.6301, L100.0100, L509.4006, L500.4050, L3890.6006, L509.8002, L3890.6102, BTS, L501.9985 #### [facility] [address] [place], [address] Protein (U) [Mass/Vol] 14.1 mg/dL High <11.9 [facility] Comment on above: Performed By: #### L 3890.6301, L100.0100, L509.4006, L500.4050, L3890.6006, L509.8002, L3890.6102, BTS, L501.9985 #### [facility] [address] [place], [address] UR CREAT 168.00 mg/dL Normal NO RANGE EST. [facility] Comment on above: Performed By: #### L 3890.6301, L100.0100, L509.4006, L500.4050, L3890.6006, L509.8002, L3890.6102, BTS, L501.9985 #### [facility] [address] [place], [address] Protein/Creatinine (U) [Mass ratio]Ordered By: Jocelyn Malcolm on 06-09-2024 Urine Protein/Creatinine Ratio 84 mg/g CRE 0-[address] [facility] Random urine protein measure mentOrdered By: Jocelyn Malcolm on 06-09-2024 Protein (U) [Mass/Vol] 14.1 mg/dL High 0.0-11.8 [facility] Urine creatinine measurement (mass/volume)Ordered By: Jocelyn Malcolm on 06-09-2024 Creatinine (U) [Mass/Vol] 168.00 mg/dL NO RANGE EST. [facility] Urine cultureOrdered By: Tucker Malcolm on 06-09-2024 Bacteria identified Cx Nom (U) Culture exhibits no growth. [facility] ABO and Rh group panel (Bld) on 05-17-2024 ABO group Nom (Bld) A Normal [facility] Comment on above: Performed By: #### 3 4530-6 #### RONALD ROBLES ([id number]) [facility] ([facility]) [address] [place] [address] [place] D Ag Ql (Bld) Positive [facility] Comment on above: Performed By: #### 3 4530-6 #### RONALD ROBLES ([id number]) [facility] ([facility]) [address] [place] [address] [place] Bacteria identifiedon 2023 Bacteria identified Cx Nom (U) Test: Urine Culture Specimen Source: Clean Catch/Voided Specimen Type: Urine Specimen Date: 05/17/2024 102 Result Date: 05/18/2024 1440 Result Status: Final result Abnormal: No Resulting Lab: [facility] [address] [place] [address] CULTURE Growth indicates contamination with periurethral daphne. Repeat culture if clinically indicated. Normal [facility] Comment on above: Performed By: #### 6 30-4 #### MARCIA Dodd ([id number]) [facility] ([facility]) [address] [place] [address] CBC panel Auto (Bld)on 05-17 Erythrocyte distribution width (RBC) [Ratio] 13.2 % Normal 11.5-14.5 [facility] Comment on above: Performed By: #### 5 8410-2 #### RONALD ROBLES ([id number]) [facility] ([facility]) [address] [place] [address] Hematocrit (Bld) [Volume fraction] 34.5 % Low 36.0-46.0 [facility] Comment on above: Performed By: #### 5 8410-2 #### RONALD ROBLES ([id number]) [facility] ([facility]) [address] [place] [address] Hemoglobin (Bld) [Mass/Vol] 11.4 g/dL Low 12.0-16.0 [facility] Comment on above: Performed By: #### 5 8410-2 #### RONALD ROBLES ([id number]) [facility] ([facility]) [address] [place] [address] MCH (RBC) [Entitic mass] 28.4 pg Normal 26.0-34.0 [facility] Comment on above: Performed By: #### 5 8410-2 #### RONALD ROBLES ([id number]) [facility] ([facility]) [address] [place] [address] MCHC (RBC) [Mass/Vol] 33.0 g/dL Normal 32.0-36.0 [facility] Comment on above: Performed By: #### 5 8410-2 #### RONALD ROBLES ([id number]) [facility] ([facility]) [address] [place] [address] MCV (RBC) [Entitic vol] 86 fL Normal 80-100 [facility] Comment on above: Performed By: #### 5 8410-2 #### RONALD ROBLES (47247) [facility] ([facility]) [address] [place] [address] Nucleated RBC/100 WBC (Bld) [Ratio] 0.0 /100 WBCs Normal 0.0-0.0 [facility] Comment on above: Performed By: #### 5 8410-2 #### RONALD ROBLES (30248) [facility] ([facility]) [address] [place] [address] Platelets (Bld) [#/Vol] 296 x10*3/uL Normal 150-450 [facility] Comment on above: Performed By: #### 5 8410-2 #### RONALD ROBLES (51134) [facility] ([facility]) [address] [place] [address] RBC (Bld) [#/Vol] 4.02 x10*6/uL Normal 4.00-5.20 [facility] Comment on above: Performed By: #### 5 8410-2 #### RONALD ROBLES (72727) [facility] ([facility]) [address] [place], [place] [address] WBC (Bld) [#/Vol] 7.4 x10*3/uL Normal 4.4-11.3 [facility] Comment on above: Performed By: #### 5 8410-2 #### RONALD ROBLES ([id number]) [facility] ([facility]) [address] [place] [address] Choriogonadotropin.beta subu niton 05-17-2024 [place] [address] m[IU]/mL High <5 U [facility] Comment on above: Order Comment: Total HCG measurement is performed using the Delvis Dominic Access Immunoassay which detects intact HCG and free beta HCG subunit. This test is not indicated for use as a tumor marker. HCG testing is performed using a different test methodology at [facility] than other [facility]. Direct result comparison should only be made within the same method. Result Comment: Low- level positive HCG results can be seen in early , in elisabeth- or post-menopausal females due to normal pituitary HCG production, or with analytic interference. Repeat testing in 48-72 hours can aid in assessing for as results should double in this time period. FSH measurement is recommended in elisabeth- or post-menopausal females as concurrent elevation of FSH can support pituitary production as the source of the HCG elevation. Performed By: #### 2 1198-7 #### RONALD ROBLES (71206) [facility] ([facility]) [address] [place], [place] [address] Comprehensive metabolic 2000 panelon 05-17-2024 Albumin BCP dye [Mass/Vol] 4.0 g/dL Normal 3.4-5.0 [facility] Comment on above: Performed By: #### 2 432-8 #### RONALD ROBLES (51297) [facility] ([facility]) [address] [place] [address] ALP [Catalytic activity/Vol] 54 U/L Normal 33-110 [facility] Comment on above: Performed By: #### 2 432-8 #### RONALD ROBLES (31979) [facility] ([facility]) [address] [place] [address] ALT With P-5'-P [Catalytic activity/Vol] 7 U/L Normal 7-45 [facility] Comment on above: Result Comment: Jodi ents treated with Sulfasalazine may generate falsely decreased results for ALT. Performed By: #### 2 4322-8 #### RONALD ROBLES (75199) [facility] ([facility]) [address] [place] [address] Anion gap [Moles/Vol] 12 mmol/L Normal 10-20 [facility] Comment on above: Performed By: #### 2 4322-8 #### RONALD ROBLES (45286) [facility] ([facility]) [address] [place] [address] AST With P-5'-P [Catalytic activity/Vol] 9 U/L Normal 9-39 [facility] Comment on above: Performed By: #### 2 432-8 #### RONALD ROBLES (06263) [facility] ([facility]) [address] [place] [address] Bilirubin [Mass/Vol] 0.3 mg/dL Normal 0.0-1.2 [facility] Comment on above: Performed By: #### 2 4322-8 #### RONALD ROBLES (45588) [facility] ([facility]) [address] [place] [address] Calcium [Mass/Vol] 8.7 mg/dL Normal 8.6-10.3 [facility] Comment on above: Performed By: #### 2 432-8 #### RONALD ROBLES (36871) [facility] ([facility]) [address] [place] [address] Chloride [Moles/Vol] 107 mmol/L Normal 98-107 [facility] Comment on above: Performed By: #### 2 4323-8 #### RONALD ROBLES (79780) [facility] ([facility]) [address] [place] [address] CO2 [Moles/Vol] 21 mmol/L Normal 21-32 [facility] Comment on above: Performed By: #### 2 4323-8 #### RONALD ROBLES (05291) [facility] ([facility]) [address] [place] [address] Creatinine [Mass/Vol] 0.62 mg/dL Normal 0.50-1.05 [facility] Comment on above: Performed By: #### 2 4323-8 #### RONALD ROBLES ([id number]) [facility] ([facility]) [address] [place] [address] GFR/1.73 sq M.predicted MDRD (S/P/Bld) [Vol rate/Area] mL/min/{1.73_m2} Normal >60 [facility] Comment on above: Result Comment: Calc ulations of estimated GFR are performed using the 2020 CKD-EPI Study Refit equation without the race variable for the IDMS-Traceable creatinine methods. https://jasn.asnjournals.org/content//ASN.2020 423653 Performed By: #### 2 4323-8 #### RONALD ROBLES ([id number]) [facility] ([facility]) [facility] [place] [address] Glucose [Mass/Vol] 98 mg/dL Normal 74-99 [facility] Comment on above: Performed By: #### 2 4323-8 #### RONALD ROBLES (58532) [facility] ([facility]) [facility] [place] [address] Potassium [Moles/Vol] 3.9 mmol/L Normal 3.5-5.3 [facility] Comment on above: Performed By: #### 2 4323-8 #### RONALD ROBLES (71685) [facility] ([facility]) [facility] [place] [id number] Protein [Mass/Vol] 6.5 g/dL Normal 6.4-8.2 [facility] Comment on above: Performed By: #### 2 4323-8 #### RONALD ROBLES (09473) [facility] ([facility]) [address] [place], [place] [address] Sodium [Moles/Vol] 136 mmol/L Normal 136-145 [facility] Comment on above: Performed By: #### 2 4323-8 #### RONALD ROBLES (75047) [facility] ([facility]) [address] [place] [address] Urea nitrogen [Mass/Vol] 14 mg/dL Normal 6-23 [facility] Comment on above: Performed By: #### 2 4323-8 #### RONALD ROBLES (67591) [facility] ([facility]) [address] [place] [address] US PELVIS OB TRANSABDOMINAL W TRANSVAGINAL UP TO 1ST TRIMESTERon 05-17-2024 US PELVIS OB TRANSABDOMINAL W TRANSVAGINAL UP TO 1ST TRIMESTER Interpreted By: Vick Forrest, STUDY: US PELVIS OB TRANSABDOMINAL W TRANSVAGINAL UP TO 1ST TRIMESTER; 05/17/2024 11:29 am INDICATION: Signs/Symptoms:right groin pain; history of ectopic. COMPARISON: None. ACCESSION NUMBER(S): [id number] ORDERING CLINICIAN: SAMANTHA LEHMAN TECHNIQUE: Multiple images of the pelvis using trans abdominal and transvaginal technique with Doppler interrogation FINDINGS: Single live intrauterine at 6 weeks 2 days by ultrasound criteria. heart tones at 129 beats per minute. 3.1 cm right ovarian follicle or cyst Possible 1.8 cm subchorionic hemorrhage. No evidence of torsion. No significant free fluid. Both ovaries otherwise normal in appearance IMPRESSION: 1. Single live intrauterine at 6 weeks 2 days by ultrasound criteria. Probable small subchorionic hemorrhage. Normal ovarian vascularity. MACRO: None Signed by: Vick Forrest 05/17/2024 12:00 PM Dictation workstation: [id number] Normal [facility] Urinalysis complete W Reflex Culture panel (U)on 05-17-2024 Appearance (U) Turbid Normal Clear [facility] Comment on above: Performed By: #### 5 8077-9 #### RONALD ROBLES ([id number]) [facility] ([facility]) [address] [place] [address] Bilirubin (U) [Mass/Vol] Negative Normal NEGATIVE [facility] Comment on above: Performed By: #### 5 8077-9 #### RONALD ROBLES (05663) [facility] ([facility]) [address] [place] [address] Color (U) Yellow Normal Light-Yellow , Yellow, Dark-Yellow [facility] Comment on above: Performed By: #### 5 8077-9 #### RONALD ROBLES (00648) [facility] ([facility]) [address] [place] [address] Glucose Auto test strip (U) [Mass/Vol] Normal Normal Normal [facility] Comment on above: Performed By: #### 5 8077-9 #### RONALD ROBLES (07196) [facility] ([facility]) [address] [place] [address] Ketones (U) [Mass/Vol] Negative Normal [facility]IVE [facility]: Performed By: #### 5 8077-9 #### RONALD ROBLES (75815) [facility] ([facility]) [address] [place], [place] [address] Leukocyte esterase Auto test strip Ql (U) 500 Lilli/???L Abnormal NEGATIVE [facility] Comment on above: Performed By: #### 5 8077-9 #### RONALD ROBLES (00274) [facility] ([facility]) [address] [place], [place] [address] Nitrite Auto test strip Ql (U) Negative Normal NEGATIVE [facility] Comment on above: Performed By: #### 5 8077-9 #### RONALD ROBLES (21405) [facility] ([facility]) [address] [place] [address] pH (U) 6.5 [pH] Normal 5.0, 5.5, 6.0, 6.5, 7.0, 7.5, 8.0 [facility] Comment on above: Performed By: #### 5 8077-9 #### RONALD ROBLES (26597) [facility] ([facility]) [address] [place] [address] Protein (U) [Mass/Vol] 30 (1+) Abnormal NEGAT JERSEY, 10 (TRACE), 20 (TRACE) [facility] Comment on above: Performed By: #### 5 8077-9 #### RONALD ROBLES (70773) [facility] ([facility]) [address] [place] [address] RBC (U) [#/Vol] Negative Normal NEGATIVE [facility] Comment on above: Performed By: #### 5 8077-9 #### RONALD ROBLES (87558) [facility] ([facility]) [address] [place] [address] Specific gravity (U) [Rel density] 1.033 Normal 1.005-1.035 [facility] Comment on above: Performed By: #### 5 8077-9 #### RONALD ROBLES (91396) [facility] ([facility]) [address] [place] [address] Urobilinogen (U) [Mass/Vol] 4 (2+) Abnormal Normal [facility] Comment on above: Result Comment: Some pigments and medications may cause a false positive urobilinogen. Performed By: #### 5 8077-9 #### RONALD ROBLES (35349) [facility] ([facility]) [address] [place] [address] Urinalysis microscopic panel Auto Ql (U)on 05-17-2024 Bacteria Auto (Urine sed) [#/Area] 1+ /HPF Abnormal NONE SEEN [facility] Comment on above: Performed By: #### 5 3315-8 #### RONALD ROBLES (86849) [facility] ([facility]) [address] [place] [address] Epithelial cells.squamous Auto (Urine sed) [#/Area] 1-9 (SPARSE) Normal Reference range not established. [facility] Comment on above: Performed By: #### 5 3315-8 #### RONALD ROBLES (09243) [facility] ([facility]) [address] [place] [address] Leukocyte clumps Auto (Urine sed) [#/Area] RARE Normal Reference range not established. [facility] Comment on above: Performed By: #### 5 3315-8 #### RONALD ROBLES (71634) [facility] ([facility]) [address] [place] [address] Mucus Auto (Urine sed) [#/Area] 4+ /LPF Normal Reference range not established. [facility] Comment on above: Performed By: #### 5 3315-8 #### RONALD ROBLES (10558) [facility] ([facility]) [address] [place] [address] 31334 RBC Auto (Urine sed) [#/Area] >20 Abnormal NONE, 1-2, 3-5 [facility] Comment on above: Performed By: #### 5 3315-8 #### RONALD ROBLES (81599) [facility] ([facility]) [address] [place] [address] 01092 WBC Auto (Urine sed) [#/Area] >50 Abnormal 1-5, NONE [facility] Comment on above: Performed By: #### 5 3315-8 #### RONALD ROBLES (37361) [facility] ([facility]) [address] [place] [address]597 Bacteria identifiedon 2023 Bacteria identified Cx Nom (U) Test: Urine Culture Specimen Source: Clean Catch/Voided Specimen Type: Urine Specimen Date: 05/13/2024951 Result Date: 05/15/2024851 Result Status: Final result Abnormal: No Resulting Lab: [facility] [address] [place] [address] CULTURE Clinically insignificant growth based on current clinical standards. [facility] Comment on above: Performed By: #### 6 30-4 #### MARCIA Dodd ([id number]) [facility] ([facility]) [address] [place] [address] Blood type and Indirect anti body screen panel (Bld)on 05-13-2024 ABO group Nom (Bld) A Normal [facility] Comment on above: Performed By: #### 3 4532-2 #### RONALD ROBLES (17263) [facility] ([facility]) [address] [place], [place] [address] Blood group antibody screen Ql Negative [facility] Comment on above: Performed By: #### 3 4532-2 #### RONALD ROBLES (74101) [facility] ([facility]) [address] [place], [place] [address] US D Ag Ql (Bld) Positive [facility] Comment on above: Performed By: #### 3 4532-2 #### RONALD ROBLES (62337) [facility] ([facility]) [address] [place] [address] C. trachomatis and N. gonorr hoeae DNA TIFFANIE+probe Nom (Unsp spec)on 05-13-2024 C. trachomatis rRNA TIFFANIE+probe Ql (Unsp spec) Negative Normal Negative [facility] Comment on above: Order Comment: The A PTIMA Combo 2 assay is FDA-approved NAAT using target capture for the in vitro qualitative detection and differentiation of ribosomal RNA (rRNA) for Chlamydia trachomatis and Neisseria gonorrhoeae testing on clinician-collected endocervical, PreservCyt solution liquid Pap specimens, vaginal, throat, rectal, and male urethral swab specimens; patient-collected vaginal swab specimens, and female and male urine specimens from symptomatic and asymptomatic individuals. Samples from all other sites are not validated for this method. Performed By: #### 3 6903-3 #### MARCIA Dodd ([id number]) [facility] ([facility]) [address] [place] [address] N. gonorrhoeae DNA Probe+sig amp Ql (Unsp spec) Negative Normal Negative [facility] Comment on above: Order Comment: The A PTIMA Combo 2 assay is FDA-approved NAAT using target capture for the in vitro qualitative detection and differentiation of ribosomal RNA (rRNA) for Chlamydia trachomatis and Neisseria gonorrhoeae testing on clinician-collected endocervical, PreservCyt solution liquid Pap specimens, vaginal, throat, rectal, and male urethral swab specimens; patient-collected vaginal swab specimens, and female and male urine specimens from symptomatic and asymptomatic individuals. Samples from all other sites are not validated for this method. Performed By: #### 3 6903-3 #### MARCIA Dodd ([id number]) [facility] ([facility]) [address] [place] [address] CBC panel Auto (Bld)on 05-13 Erythrocyte distribution width (RBC) [Ratio] 13.2 % Normal 11.5-14.5 [facility] Comment on above: Performed By: #### 5 8410-2 #### RONALD ROBLES (49752) [facility] ([facility]) [address] [place] [address]886 Hematocrit (Bld) [Volume fraction] 35.1 % Low 36.0-46.0 [facility] Comment on above: Performed By: #### 5 8410-2 #### RONALD ROBLES (33549) [facility] ([facility]) [address] [place] [address] Hemoglobin (Bld) [Mass/Vol] 11.3 g/dL Low 12.0-16.0 [facility] Comment on above: Performed By: #### 5 8410-2 #### RONALD ROBLES (29157) [facility] ([facility]) [address] [place] [address] 87646 MCH (RBC) [Entitic mass] 27.9 pg Normal 26.0-34.0 [facility] Comment on above: Performed By: #### 5 8410-2 #### RONALD ROBLES (79243) [facility] ([facility]) [address] [place] [address] 24473 MCHC (RBC) [Mass/Vol] 32.2 g/dL Normal 32.0-36.0 [facility] Comment on above: Performed By: #### 5 8410-2 #### RONALD ROBLES (63160) [facility] ([facility]) [address] [place] [address] MCV (RBC) [Entitic vol] 87 fL Normal 80-100 U [facility] Comment on above: Performed By: #### 5 8410-2 #### RONALD ROBLES (29457) [facility] ([facility]) [address] [place] [address] Nucleated RBC/100 WBC (Bld) [Ratio] 0.0 /100 WBCs Normal 0.0-0.0 [facility] Comment on above: Performed By: #### 5 8410-2 #### RONALD ROBLES (72675) [facility] ([facility]) [address] [place] [address] Platelets (Bld) [#/Vol] 319 x10*3/uL Normal 150-450 [facility] Comment on above: Performed By: #### 5 8410-2 #### RONALD ROBLES (23437) [facility] ([facility]) [address] [place], [place] [address] RBC (Bld) [#/Vol] 4.05 x10*6/uL Normal 4.00-5.20 [facility] Comment on above: Performed By: #### 5 8410-2 #### RONALD ROBLES (21879) [facility] ([facility]) [address] [place], [place] [address] WBC (Bld) [#/Vol] 7.1 x10*3/uL Normal 4.4-11.3 [facility] Comment on above: Performed By: #### 5 8410-2 #### RONALD ROBLES (70586) [facility] ([facility]) [address] [place] [address] Choriogonadotropin.beta subu niton 05-13-2024 [place] [address] m[IU]/mL High <5 U [facility] Comment on above: Order Comment: Total HCG measurement is performed using the [employer] [place] Access Immunoassay which detects intact HCG and free beta HCG subunit. This test is not indicated for use as a tumor marker. HCG testing is performed using a different test methodology at [facility] than other [facility]. Direct result comparison should only be made within the same method. Result Comment: Low- level positive HCG results can be seen in early , in elisabeth- or post-menopausal females due to normal pituitary HCG production, or with analytic interference. Repeat testing in 48-72 hours can aid in assessing for as results should double in this time period. FSH measurement is recommended in elisabeth- or post-menopausal females as concurrent elevation of FSH can support pituitary production as the source of the HCG elevation. Performed By: #### 2 1198-7 #### RONALD ROBLES (23970) [facility] ([facility]) [address] [place] [address] 89697 HIV 1+2 Ab+HIV1 p24 Agon HIV 1+2 Ab+HIV1 p24 Ag IA Ql Non-Reactive Normal Nonreactive [facility] Comment on above: Order Comment: HIV A g/Ab screen is performed using the Siem[employer] HIV Ag/Ab Combo assay which detects the presence of HIV p24 antigen as well as antibodies to HIV-1 (Group M and O) and HIV-2. No laboratory evidence of HIV infection. If acute HIV infection is suspected, consider testing for HIV RNA by PCR (viral load). Performed By: #### 5 6888-1 #### MARCIA Dodd (28142) [facility] ([facility]) [address] [place] [address] 98975 HbA1c (Bld) [Mass fraction]o n 05-13-2024 Average glucose Estimated from glycated hemoglobin (Bld) [Mass/Vol] 100 mg/dL Normal Not Established [facility] Comment on above: Order Comment: Diagn osis of Diabetes-Adults Non-Diabetic: < or = 5.6% Increased risk for developing diabetes: 5.7-6.4% Diagnostic of diabetes: > or = 6.5% Performed By: #### 4 548-4 #### MARCIA Dodd (48401) [facility] ([facility]) [address] [place] [address] Hemoglobin A1c/Hemoglobin.to margareth 05-13-2024 HbA1c (Bld) [Mass fraction] 5.1 % Normal See comment [facility] Comment on above: Order Comment: Diagn osis of Diabetes-Adults Non-Diabetic: < or = 5.6% Increased risk for developing diabetes: 5.7-6.4% Diagnostic of diabetes: > or = 6.5% Performed By: #### 4 548-4 #### MARCIA Dodd (58986) [facility] ([facility]) [address] [place] [address] Hepatitis B virus surface Ag on 05-13-2024 HBV surface Ag IA Ql Non-Reactive Normal Nonreactive [facility] Comment on above: Result Comment: Biot in interference may cause falsely decreased results. Patients taking a Biotin dose of up to 5 mg/day should refrain from taking Biotin for 24 hours before sample collection. Providers may contact their local laboratory for further information. Performed By: #### 5 196-1 #### MARCIA Dodd (97538) [facility] ([facility]) [address] [place], [place] [address] Laboratory - Hematology and Cell countson 05-13-2024 HbA1c (Bld) [Mass fraction] 5.1 % [facility] Hematocrit (Bld) [Volume fraction] 35.1 % [facility] MCV (RBC) [Entitic vol] 87 fL [facility] No Panel Informationon 05-13 Chlamydia Comment Negative [facility] HIV Antigen/Antibody Interpretation Negative [facility] Neisseria gonorrhoeae Comment Negative [facility] Platelet Count (Clinic) 319 g/gL [facility] Rubella Interpretation Presumed Immune [facility] Syphilis Interpretation Non-Reactive [facility] REFLEX ADDED, ANEMIA PANELon 05-13-2024 REFLEX ADDED, ANEMIA PANEL No reflex. Normal [facility] Comment on above: Performed By: #### 7 4281-7 #### [facility] ([id number]) [address] [place], [place] Rubella virus IgG IA Qnon Rubella virus IgG IA Ql Positive Normal Negative U [facility] Comment on above: Order Comment: NEGAT JER[place]: No IgG antibodies specific to Rubella detected.It is likely that the patient has not had a previous exposureto Rubella through infection or vaccination. Alternatively,the patient may have been exposed to Rubella but a failure torespond may indicate immunodeficiency.EQUIVOCAL: Equivocal results; obtain an additionalsample for re-testingPOSITIVE: IgG antibody to Rubella detected. This may indicatethat the patient was exposed to Rubella through infection or vaccination. Performed By: #### 7 4281-7 #### [facility] ([id number]) [address] [place], [place] Rubella virus IgG Qn (S) 1.2 IA Normal <=0.7 IA [facility] Comment on above: Order Comment: NEGAT [place]: No IgG antibodies specific to Rubella detected.It is likely that the patient has not had a previous exposureto Rubella through infection or vaccination. Alternatively,the patient may have been exposed to Rubella but a failure torespond may indicate immunodeficiency.EQUIVOCAL: Equivocal results; obtain an additionalsample for re-testingPOSITIVE: IgG antibody to Rubella detected. This may indicatethat the patient was exposed to Rubella through infection or vaccination. Performed By: #### 7 4281-7 #### VELMA DAILY ([id number]) [address] [place], [place] Treponema pallidum Ab.IgG+Ig [facility] 05-13-2024 T. pallidum IgG+IgM IA Ql (S) Non-Reactive Normal Nonreactive [facility] Comment on above: Result Comment: No s ignificant level of Treponema pallidum antibody detected. Repeat testing in 2 to 4 weeks may be considered if early infection or incubating syphilis infection is suspected. Performed By: #### 7 4281-7 #### [facility] ([id number]) [address] [place] Choriogonadotropin.beta subu niton 05-06-2024 HCG.beta subunit Qn 8188 m[IU]/mL High <5 Un [facility] Comment on above: Order Comment: Total HCG measurement is performed using the Delvis [place] Access Immunoassay which detects intact HCG and free beta HCG subunit. This test is not indicated for use as a tumor marker. HCG testing is performed using a different test methodology at [facility] than other [facility]. Direct result comparison should only be made within the same method. Result Comment: Low- level positive HCG results can be seen in early , in elisabeth- or post-menopausal females due to normal pituitary HCG production, or with analytic interference. Repeat testing in 48-72 hours can aid in assessing for as results should double in this time period. FSH measurement is recommended in elisabeth- or post-menopausal females as concurrent elevation of FSH can support pituitary production as the source of the HCG elevation. Performed By: #### 2 1198-7 #### RONALD ROBLES ([id number]) [facility] ([facility]) [address] [place] [address]8745 Choriogonadotropin.beta subu niton 03-07-2024 HCG.beta subunit Qn m[IU]/mL Normal <5 [facility] Comment on above: Order Comment: Total HCG measurement is performed using the [employer] [place] Access Immunoassay which detects intact HCG and free beta HCG subunit. This test is not indicated for use as a tumor marker. HCG testing is performed using a different test methodology at [facility] than [facility]. Direct result comparison should only be made within the same method. Performed By: #### 2 1198-7 #### RONALD ROBLES ([id number]) [facility] ([facility]) [address] [place] [address] Cervical AND or Vaginal cyto logy studyon 12-08-2023 Cytology Cervical or vaginal smear or scraping study Pathology report.total SEE COMMENT Gynecologic Cytology Case: [id number] Authorizing Provider: Jacquelyn Walker MD Collected: 12/08/2023 1542 Ordering Location: [facility] Received: 12/08/2023 1542 Office Building First Screen: Graciela Singleton, CT Specimen: ThinPrep Liquid-Based Pap-Imaging System Screen, CERVIX, SCREENING Cytology study comment SEE COMMENT A. THINPREP PAP CERVIX, SCREENING - Specimen Adequacy Satisfactory for evaluation; endocervical/transformat ion zone component is present General Categorization Negative for intraepithelial lesion or malignancy. Descriptive Interpretation Negative for intraepithelial lesion or malignancy Specimen does not meet the requisition-stated criteria for HPV testing. See Pap test interpretation above. Laboratory comment SEE COMMENT Slide(s) initially screened by [facility] at [facility] [address] [facility] [id number] By the signature on this report, the individual or group listed as making the Final Interpretation/Diagnosis certifies that they have reviewed this case. This specimen has been analyzed by the [employer] LimitedPrep Imaging System ([employer] an automated imaging and review system, which assists the laboratory in evaluating cells on ThinPrep Pap tests. Following automated imaging, selected bennett from every slide were reviewed by a customer experience retail clerk and/or pathologist. Cervical cytology is a screening procedure primarily for squamous cancers and precursors and has associated false-negative and false-positives results as evidenced by published data. Your patient's test should be interpreted in this context, together with the patient's history and clinical findings. Regular sampling and follow-up of unexplained clinical signs and symptoms are recommended to minimize false negative results. LAB AP HPV HR Reflex if ASCUS only LAB AP HPV GENOTYPE QUESTION Yes Date last menstrual period 11/19/2023 [facility] VITAMIN Aon 08-13-2023 VITAMIN A 39.5 [facility] Comment on above: Result Comment: Refe rence range: 18.9 to 57.3 Unit: ug/dL (NOTE) Reference intervals for vitamin A determined from [facility] internal studies. Individuals with vitamin A less than 20 ug/dL are considered vitamin A deficient and those with serum concentrations less than 10 ug/dL are considered severely deficient. This test was developed and its performance characteristics determined by [facility]. It has not been cleared or approved by the Food and Drug Administration. PERFORMED AT [facility] Performed By: #### A CBC, FE2, LIP2, B12F ####Testing performed at [address] [address]#### LVITE, LVITA, EHZ379, LCOPP, LZN ####Testing performed at [facility] VITAMIN Tay 08-13-2023 VITAMIN E ALPHA 10.5 [facility] Comment on above: Result Comment: Refe rence range: 5.9 to 19.4 Unit: mg/L (NOTE) This test was developed and its performance characteristics determined by [facility]. It has not been cleared or approved by the Food and Drug Administration. Performed By: #### T SCC #### Testing performed at [address] [address] VITAMIN E GAMMA 2.2 Normal [facility] Comment on above: Result Comment: Refe rence range: 0.7 to 4.9 Unit: mg/L (NOTE) This test was developed and its performance characteristics determined by [facility]. It has not been cleared or approved by the Food and Drug Administration. Reference intervals for alpha and gamma-tocopherol determined from National Health and Nutrition Examination Survey, 0523-0796. Individuals with alpha-tocopherol levels less than 5.0 mg/L are considered vitamin E deficient. PERFORMED AT [facility] Performed By: #### T SCC #### Testing performed at [address] [address] VIT.B1 THIAMINE-BLDon 2023 VIT.B1 THIAMINE-BLD 132.6 Normal [facility] Comment on above: Result Comment: Refe rence range: 66.5 to 200.0 Unit: nmol/L (NOTE) This test was developed and its performance characteristics determined by [facility]. It has not been cleared or approved by the Food and Drug Administration. PERFORMED AT [facility] Performed By: #### L VB1 #### Testing performed at [facility] VIT D, 1,25 DIHYDROXon 08-09 VIT. D 1,25 36.5 Normal [facility] Comment on above: Result Comment: Refe rence range: 24.8 to 81.5 Unit: pg/mL PERFORMED AT [facility] Performed By: #### T SCC #### Testing performed at [address] [address] PLASMA ZINCon 08-08-2023 PLASMA ZINC 75 Normal [facility] Comment on above: Result Comment: Refe rence range: 44 to 115 Unit: ug/dL (NOTE) This test was developed and its performance characteristics determined by [facility]. It has not been cleared or approved by the Food and Drug Administration. Detection Limit = 5 PERFORMED AT [facility] Performed By: #### T SCC #### Testing performed at [address] [address] SERUM COPPERon 08-08-2023 SERUM COPPER 95 Normal [facility] Comment on above: Result Comment: Refe rence range: 80 to 158 Unit: ug/dL (NOTE) This test was developed and its performance characteristics determined by [facility]. It has not been cleared or approved by the Food and Drug Administration. Detection Limit = 5 PERFORMED AT [facility] Performed By: #### T SCC #### Testing performed at [address] [address] B12 FOLATEon 08-05-2023 Cobalamin (Vitamin B12) [Mass/Vol] 712 pg/mL Normal 239-931 [facility] Comment on above: Performed By: #### T SCC #### Testing performed at [address] [address] FOLATE 18.9 NG/ML Normal 2.56-20.0 [facility] Comment on above: Performed By: #### T SCC #### Testing performed at [address] [address] CBCon 08-05-2023 ABSOLUTE BAS 0.0 10*3/uL Normal 0.0-0.2 [facility] Comment on above: Performed By: #### T SCC #### Testing performed at [address] [address] ABSOLUTE EOS 0.1 10*3/uL Normal 0.0-0.7 [facility] Comment on above: Performed By: #### T SCC #### Testing performed at [address] [address] ABSOLUTE NEUTROPHIL COUNT 4.8 10*3/uL Normal 1.4-6.5 [facility] Comment on above: Performed By: #### T SCC #### Testing performed at [address] [address] Basophils/100 WBC (Bld) 0.4 % Normal 0.0-2.0 [facility] Comment on above: Performed By: #### T SCC #### Testing performed at [address] [address] DTYPE AUTO DIFF Normal [facility] Comment on above: Performed By: #### T SCC #### Testing performed at [address] [address] Eosinophils/100 WBC (Bld) 1.4 % Normal 0.0-11.0 [facility] Comment on above: Performed By: #### T SCC #### Testing performed at [address] [address] Lymphocytes (Bld) [#/Vol] 3.5 10*3/uL High 1.2-3.4 [facility] Comment on above: Performed By: #### T SCC #### Testing performed at [address] [address] Lymphocytes/100 WBC (Bld) 38.6 % Normal 20.0-55.0 [facility] Comment on above: Performed By: #### T SCC #### Testing performed at [address] [address] Monocytes (Bld) [#/Vol] 0.6 10*3/uL Normal 0.0-0.7 [facility] Comment on above: Performed By: #### T SCC #### Testing performed at [address] [address] Monocytes/100 WBC (Bld) 6.8 % Normal 0.0-10.0 [facility] Comment on above: Performed By: #### T SCC #### Testing performed at [address] [address] Neutrophils/100 WBC (Bld) 52.8 % Normal 37.0-75.0 [facility] Comment on above: Performed By: #### T SCC #### Testing performed at [address] [place] [address] Erythrocyte distribution width (RBC) [Ratio] 13.6 % Normal 11.5-14.5 [facility] Comment on above: Performed By: #### T SCC #### Testing performed at [address] [place] [address] Hematocrit (Bld) [Volume fraction] 39.0 % Normal 36.0-48.0 [facility] Comment on above: Performed By: #### T SCC #### Testing performed at [address] [place] [address] Hemoglobin (Bld) [Mass/Vol] 13.0 g/dL Normal 12.0-16.0 [facility] Comment on above: Performed By: #### T SCC #### Testing performed at [address] [place] [address] MCH (RBC) [Entitic mass] 29.0 pg Normal 26.0-35.0 [facility] Comment on above: Performed By: #### T SCC #### Testing performed at [address] [place] [address] MCHC (RBC) [Mass/Vol] 33.4 g/dL Normal 27.0-37.0 [facility] [place] Comment on above: Performed By: #### T SCC #### Testing performed at [address] [place] [address] MCV (RBC) [Entitic vol] 86.9 fL Normal 80.0-100.0 [facility] Comment on above: Performed By: #### T SCC #### Testing performed at [address] [place] [address] Platelet mean volume (Bld) [Entitic vol] 8.4 fL Normal 7.4-11.0 [facility] Comment on above: Performed By: #### T SCC #### Testing performed at [address] [place] [address] Platelets (Bld) [#/Vol] 362 10*3/uL Normal 130-400 [facility] Comment on above: Performed By: #### T SCC #### Testing performed at [address] [place] [address] RBC (Bld) [#/Vol] 4.49 10*6/uL Normal 4.0-5.4 [facility] Comment on above: Performed By: #### T SCC #### Testing performed at [address] [place] [address] WBC (Bld) [#/Vol] 9.1 10*3/uL Normal 3.6-11.0 [facility] Comment on above: Performed By: #### T SCC #### Testing performed at [address] [address] Hepatitis B virus surface Ab on 08-05-2023 HBV surface Ab Qn (S) 26.4 mIU/mL High <10.0 [facility] Comment on above: Result Comment: Inte rpretive Criteria: <10 mIU/mL Nonreactive >=10 mIU/mL Reactive Biotin interference may cause falsely decreased results. Patients taking a Biotin dose of up to 5 mg/day should refrain from taking Biotin for 24 hours before sample collection. Providers may contact their local laboratory for further information. Performed By: #### 1 6935-9 #### MARCIA Dodd ([id number]) [facility] ([facility]) [address] [place] [id number] IRONon 08-05-2023 Iron [Mass/Vol] 43 ug/dL Normal 37-170 [facility] Comment on above: Performed By: #### T SCC #### Testing performed at [address] [address] LIPID PROFILEon 08-05-2023 Cholesterol [Mass/Vol] 185 mg/dL Normal 107-217 [facility] Comment on above: Performed By: #### T SCC #### Testing performed at [address] [address] Cholesterol in HDL [Mass/Vol] 47 mg/dL Normal 33-75 [facility] Comment on above: Performed By: #### T SCC #### Testing performed at [address] [address] Cholesterol in LDL [Mass/Vol] 111 mg/dL High <100 [facility] Comment on above: Performed By: #### T SCC #### Testing performed at [address] [address] Cholesterol in VLDL [Mass/Vol] 27 mg/dL High 5-25 [facility] Comment on above: Performed By: #### T SCC #### Testing performed at [address] [address] Cholesterol.total/Desirae sterol in HDL [Mass ratio] 3.94 {ratio} Normal [facility] Comment on above: Result Comment: RISK TOTAL/HDL RATIO MEN WOMEN 1/2 AVERAGE 3.43 3.27 AVERAGE 4.97 4.44 2X AVERAGE 9.55 7.05 3X AVERAGE 23.99 11.04 Performed By: #### T SCC #### Testing performed at [address] [address] Triglyceride [Mass/Vol] 133 mg/dL Normal 0-150 [facility] Comment on above: Performed By: #### T SCC #### Testing performed at [address] [address] M. tuberculosis stim IFN-g a nd spot count panel (Bld)on 08-05-2023 Gamma interferon negative control spot count (Bld) [#] Passed [facility] Comment on above: Performed By: #### 7 4281-7 #### VELMA DAILY ([id number]) [address] [facility] [address] [place] M. tuberculosis stim IFN-g Ql (Bld) [Interp] Negative Normal Negative [facility] Comment on above: Result Comment: A negative test result does not exclude the possibility of exposure to or infection with Mycobacterium tuberculosis (M. tuberculosis). Patients with recent exposure to TB infected individuals exhibiting a negative T-SPOT.TB result should be considered for retesting within 6 weeks or if other relevant clinical symptoms indicate. Results from T-SPOT.TB testing must be used in conjunction with each individual's epidemiological history, current medical status, and results of other diagnostic evaluations. The T-SPOT.TB test is qualitative and results are reported as positive, borderline, or negative, given that the test controls perform as expected. In line with the Centers for Disease Control and Prevention's 2010 recommendation to report quantitative measurements alongside the qualitative result, the laboratory provides spot counts for informational purposes only. The T-SPOT.TB test should not be interpreted as a quantitative test. Performed By: #### 7 4281-7 #### VELMA DAILY ([id number]) [address] Mitogen stimulated gamma interferon positive control spot count (Bld) [#] Passed [facility] [place] Comment on above: Result Comment: For additional information, please refer to [email or web address]/NSG890 (This link is being provided for informational/ educational purposes only.) Performed By: #### 7 4281-7 #### QUEST MIKETL ([id number]) [address] [facility] [facility] [address] [place], [place] PANEL A SPOT COUNT 0 Normal [facility] Comment on above: Performed By: #### 7 4281-7 #### QUEST MIKETL ([id number]) [address] [facility] [place] [place] PANEL B SPOT COUNT 1 Normal [facility] Comment on above: Performed By: #### 7 4281-7 #### QUEST MIKETL ([id number]) [address] [facility] [address] [place], [place] BASIC METABOLIC PANELon 10- Anion gap [Moles/Vol] 9 mmol/L MMOL/L [facility] Calcium [Mass/Vol] 8.7 mg/dL [facility] Chloride [Moles/Vol] 105 mmol/L [facility] Comment on above: Please note: Triglyc eride levels of 600mg/dL or higher may positively bias chloride results by approximately 2.1 mmol CO2 [Moles/Vol] 24 mmol/L [facility] Creatinine [Mass/Vol] 0.68 mg/dL Low [facility] GFR COMMENT Average GFR for 20-2 9 years old = 116. [facility] Comment on above: Chronic Kidney disea se, GFR = <60. Kidney failure, GFR = <15. The GFR estimate is not adjusted for extreme body surface area or acute process, nor has it been validated for women or ethnic groups other than and . GFR/1.73 sq M.predicted among blacks MDRD (S/P/Bld) [Vol rate/Area] 133 mL/min/{1.73_m2} ml/min/1.73s q.m [facility] GFR/1.73 sq M.predicted among non-blacks MDRD (S/P/Bld) [Vol rate/Area] 110 mL/min/{1.73_m2} ml/min/1.73s q.m [facility] Glucose post fast [Mass/Vol] 112 mg/dL High [facility] Comment on above: NORMAL <100 mg/dL PREDIABETES 101-126 mg/dL DIABETES 126 mg/dL or higher Interpretation and review of laboratory results Abnormal [facility] Potassium [Moles/Vol] 4.3 mmol/L [facility] Sodium [Moles/Vol] 138 mmol/L [facility] Urea nitrogen [Mass/Vol] 10 mg/dL [facility] BMP FASTINGon 03-12-2023 Anion gap [Moles/Vol] 9 mmol/L Normal [facility] [place] Comment on above: Performed By: #### L VB1 #### Testing performed at [facility] Calcium [Mass/Vol] 8.7 mg/dL Normal 8.4-10.2 [facility] Comment on above: Performed By: #### L VB1 #### Testing performed at [facility] Chloride [Moles/Vol] 105 mmol/L Normal 98-107 [facility] Comment on above: Result Comment: Yovany bro note: Triglyceride levels of 600mg/dL or higher may positively bias chloride results by approximately 2.1 mmol Performed By: #### L VB1 #### Testing performed at [facility] CO2 [Moles/Vol] 24 mmol/L Normal 22-30 [facility] Comment on above: Performed By: #### L VB1 #### Testing performed at [facility] Creatinine [Mass/Vol] 0.68 mg/dL Low 0.70-1.20 [facility] [place] Comment on above: Performed By: #### L VB1 #### Testing performed at [facility] EST. GFR, 133 ml/min/1.73sq.m [facility] Comment on above: Performed By: #### L VB1 #### Testing performed at [facility] EST. GFR,Non 110 ml/min/1.73sq.m [facility] Comment on above: Performed By: #### L VB1 #### Testing performed at [facility] GFR Information Average GFR for 20-2 9 years old = 116. [facility] Comment on above: Result Comment: Pit Recorder karl Kidney disease, GFR = <60. Kidney failure, GFR = <15. The GFR estimate is not adjusted for extreme body surface area or acute process, nor has it been validated for women or ethnic groups other than and . Performed By: #### L VB1 #### Testing performed at [facility] Glucose [Mass/Vol] 112 mg/dL High 70-100 [facility] Comment on above: Result Comment: NORMAL <100 mg/dL PREDIABETES 101-126 mg/dL DIABETES 126 mg/dL or higher Performed By: #### L VB1 #### Testing performed at [facility] Potassium [Moles/Vol] 4.3 mmol/L Normal 3.5-5.1 [facility] [place] Comment on above: Performed By: #### L VB1 #### Testing performed at [facility] Sodium [Moles/Vol] 138 mmol/L Normal 137-145 [facility] Comment on above: Performed By: #### L VB1 #### Testing performed at [facility] Urea nitrogen [Mass/Vol] 10 mg/dL Normal 7-20 [facility] Comment on above: Performed By: #### L VB1 #### Testing performed at [facility] CBCon 03-12-2023 ABSOLUTE BAS 0.0 10*3/uL Normal 0.0-0.2 [facility] Comment on above: Performed By: #### L VB1 #### Testing performed at [facility] ABSOLUTE EOS 0.0 10*3/uL Normal 0.0-0.7 [facility] Comment on above: Performed By: #### L VB1 #### Testing performed at [facility] ABSOLUTE NEUTROPHIL COUNT 10.0 10*3/uL High 1.4-6.5 [facility] Comment on above: Performed By: #### L VB1 #### Testing performed at [facility] Basophils/100 WBC (Bld) 0.1 % Normal 0.0-2.0 [facility] Comment on above: Performed By: #### L VB1 #### Testing performed at [facility] DTYPE AUTO DIFF Normal [facility] Comment on above: Performed By: #### L VB1 #### Testing performed at [facility] Eosinophils/100 WBC (Bld) 0.0 % Normal 0.0-11.0 [facility] Comment on above: Performed By: #### L VB1 #### Testing performed at [facility] Lymphocytes (Bld) [#/Vol] 1.1 10*3/uL Low 1.2-3.4 [facility] Comment on above: Performed By: #### L VB1 #### Testing performed at [facility] Lymphocytes/100 WBC (Bld) 9.2 % Low 20.0-55.0 [facility] Comment on above: Performed By: #### L VB1 #### Testing performed at [facility] Monocytes (Bld) [#/Vol] 0.9 10*3/uL High 0.0-0.7 [facility] Comment on above: Performed By: #### L VB1 #### Testing performed at [facility] Monocytes/100 WBC (Bld) 7.4 % Normal 0.0-10.0 [facility] Comment on above: Performed By: #### L VB1 #### Testing performed at [facility] Neutrophils/100 WBC (Bld) 83.3 % High 37.0-75.0 [facility] Comment on above: Performed By: #### L VB1 #### Testing performed at [facility] Erythrocyte distribution width (RBC) [Ratio] 13.8 % Normal 11.5-14.5 [facility] Comment on above: Performed By: #### L VB1 #### Testing performed at [facility] Hematocrit (Bld) [Volume fraction] 38.0 % Normal 36.0-48.0 [facility] Comment on above: Performed By: #### L VB1 #### Testing performed at [facility] Hemoglobin (Bld) [Mass/Vol] 12.2 g/dL Normal 12.0-16.0 [facility] Comment on above: Performed By: #### L VB1 #### Testing performed at [facility] MCH (RBC) [Entitic mass] 28.0 pg Normal 26.0-35.0 [facility] Comment on above: Performed By: #### L VB1 #### Testing performed at [facility] MCHC (RBC) [Mass/Vol] 32.1 g/dL Normal 27.0-37.0 [facility] [place] Comment on above: Performed By: #### L VB1 #### Testing performed at [facility] MCV (RBC) [Entitic vol] 87.1 fL Normal 80.0-100.0 [facility] Comment on above: Performed By: #### L VB1 #### Testing performed at [facility] Platelet mean volume (Bld) [Entitic vol] 8.0 fL Normal 7.4-11.0 [facility] Comment on above: Performed By: #### L VB1 #### Testing performed at [facility] Platelets (Bld) [#/Vol] 311 10*3/uL Normal 130-400 [facility] Comment on above: Performed By: #### L VB1 #### Testing performed at [facility] RBC (Bld) [#/Vol] 4.36 10*6/uL Normal 4.0-5.4 [facility] Comment on above: Performed By: #### L VB1 #### Testing performed at [facility] WBC (Bld) [#/Vol] 12.1 10*3/uL High 3.6-11.0 [facility] Comment on above: Performed By: #### L VB1 #### Testing performed at [facility] CBC, EDIF, PLATELETon 2022 ABSOLUTE BASOPHIL COUNT 0.0 10*3/uL 0.0 - 0.2 10*3/uL [facility] Basophils/100 WBC (Bld) 0.1 % 0.0 - 2.0 % [facility] Differential cell count method Nom (Bld) AUTO DIFF % [facility] Eosinophils (Bld) [#/Vol] 0.0 10*3/uL 0.0 - 0.7 10*3/uL [facility] Eosinophils/100 WBC (Bld) 0.0 % 0.0 - 11.0 % [facility] Erythrocyte distribution width (RBC) [Ratio] 13.8 % 11.5 - 14.5 % [facility] Hematocrit (Bld) [Volume fraction] 38.0 % 36.0 - 48.0 % [facility] Hemoglobin (Bld) [Mass/Vol] 12.2 g/dL [facility] Interpretation and review of laboratory results Abnormal [facility] Lymphocytes (Bld) [#/Vol] 1.1 10*3/uL Low 1.2 - 3.4 10*3/uL [facility] Lymphocytes/100 WBC (Bld) 9.2 % Low 20.0 - 55.0 % [facility] MCH (RBC) [Entitic mass] 28.0 pg 26.0 - 35.0 PG [facility] MCHC (RBC) [Mass/Vol] 32.1 g/dL [facility] MCV (RBC) [Entitic vol] 87.1 fL [facility] Monocytes (Bld) [#/Vol] 0.9 10*3/uL High 0.0 - 0.7 10*3/uL [facility] Monocytes/100 WBC (Bld) 7.4 % 0.0 - 10.0 % [facility] Neutrophils (Bld) [#/Vol] 10.0 10*3/uL High 1.4 - 6.5 10*3/uL [facility] Neutrophils/100 WBC (Bld) 83.3 % High 37.0 - 75.0 % [facility] Platelet mean volume (Bld) [Entitic vol] 8.0 fL [facility] Platelets (Bld) [#/Vol] 311 10*3/uL 130 - 400 10*3/uL [facility] RBC (Bld) [#/Vol] 4.36 10*6/uL 4.0 - 5.4 10*6/uL [facility] WBC (Bld) [#/Vol] 12.1 10*3/uL High 3.6 - 11.0 10*3/uL [facility] BASIC METABOLIC PANELon 03-01 Anion gap [Moles/Vol] 8 mmol/L MMOL/L [facility] Calcium [Mass/Vol] 8.9 mg/dL [facility] Chloride [Moles/Vol] 107 mmol/L [facility] Comment on above: Please note: Triglyc eride levels of 600mg/dL or higher may positively bias chloride results by approximately 2.1 mmol CO2 [Moles/Vol] 23 mmol/L [facility] Creatinine [Mass/Vol] 0.76 mg/dL [facility] GFR COMMENT Average GFR for 20-2 9 years old = 116. [facility] Comment on above: Chronic Kidney disea se, GFR = <60. Kidney failure, GFR = <15. The GFR estimate is not adjusted for extreme body surface area or acute process, nor has it been validated for women or ethnic groups other than and . GFR/1.73 sq M.predicted among blacks MDRD (S/P/Bld) [Vol rate/Area] 117 mL/min/{1.73_m2} ml/min/1.73s q.m [facility] GFR/1.73 sq M.predicted among non-blacks MDRD (S/P/Bld) [Vol rate/Area] 97 mL/min/{1.73_m2} ml/min/1.73s q.m [facility] Glucose post fast [Mass/Vol] 168 mg/dL High [facility] Comment on above: NORMAL <100 mg/dL PREDIABETES 101-126 mg/dL DIABETES 126 mg/dL or higher Interpretation and review of laboratory results Abnormal [facility] Potassium [Moles/Vol] 4.6 mmol/L [facility] Sodium [Moles/Vol] 138 mmol/L [facility] Urea nitrogen [Mass/Vol] 10 mg/dL [facility] Anion gap [Moles/Vol] 13 mmol/L MMOL/L [facility] Calcium [Mass/Vol] 9.3 mg/dL [facility] Chloride [Moles/Vol] 107 mmol/L [facility] Comment on above: Please note: Triglyc eride levels of 600mg/dL or higher may positively bias chloride results by approximately 2.1 mmol CO2 [Moles/Vol] 21 mmol/L Low [facility] Creatinine [Mass/Vol] 0.74 mg/dL [facility] GFR COMMENT Average GFR for 20-2 9 years old = 116. [facility] Comment on above: Chronic Kidney disea se, GFR = <60. Kidney failure, GFR = <15. The GFR estimate is not adjusted for extreme body surface area or acute process, nor has it been validated for women or ethnic groups other than and . GFR/1.73 sq M.predicted among blacks MDRD (S/P/Bld) [Vol rate/Area] 121 mL/min/{1.73_m2} ml/min/1.73s q.m [facility] GFR/1.73 sq M.predicted among non-blacks MDRD (S/P/Bld) [Vol rate/Area] 100 mL/min/{1.73_m2} ml/min/1.73s q.m [facility] Glucose post fast [Mass/Vol] 95 mg/dL [facility] Comment on above: NORMAL <100 mg/dL PREDIABETES 101-126 mg/dL DIABETES 126 mg/dL or higher Interpretation and review of laboratory results Abnormal [facility] Potassium [Moles/Vol] 3.9 mmol/L [facility] Sodium [Moles/Vol] 141 mmol/L [facility] Urea nitrogen [Mass/Vol] 9 mg/dL [facility] BMP FASTINGon 03-11-2023 Anion gap [Moles/Vol] 8 mmol/L Normal [facility] [place] Comment on above: Performed By: #### H EMOG, BMPF, PHOS, MG #### Testing performed at [address] [address] Calcium [Mass/Vol] 8.9 mg/dL Normal 8.4-10.2 [facility] Comment on above: Performed By: #### H EMOG, BMPF, PHOS, MG #### Testing performed at [address] [address] Chloride [Moles/Vol] 107 mmol/L Normal 98-107 [facility] Comment on above: Result Comment: Plea se note: Triglyceride levels of 600mg/dL or higher may positively bias chloride results by approximately 2.1 mmol Performed By: #### H EMOG, BMPF, PHOS, MG #### Testing performed at [address] [address] CO2 [Moles/Vol] 23 mmol/L Normal 22-30 [facility] Comment on above: Performed By: #### H EMOG, BMPF, PHOS, MG #### Testing performed at [place] [id number] Creatinine [Mass/Vol] 0.76 mg/dL Normal 0.70-1.20 [facility] [place] Comment on above: Performed By: #### H EMOG, BMPF, PHOS, MG #### Testing performed at [place] [id number] EST. GFR, 117 ml/min/1.73sq.m [facility] Comment on above: Performed By: #### H EMOG, BMPF, PHOS, MG #### Testing performed at [place] [id number] EST. GFR,Non 97 ml/min/1.73sq.m [facility] Comment on above: Performed By: #### H EMOG, BMPF, PHOS, MG #### [place] [address] GFR Information Average GFR for 20-2 9 years old = 116. Normal [facility] Comment on above: Result Comment: Pit Recorder karl Kidney disease, GFR = <60. Kidney failure, GFR = <15. The GFR estimate is not adjusted for extreme body surface area or acute process, nor has it been validated for women or ethnic groups other than and . Performed By: #### H EMOG, BMPF, PHOS, MG #### Testing performed at [place] [id number] Glucose [Mass/Vol] 168 mg/dL High 70-100 [facility] Comment on above: Result Comment: NORMAL <100 mg/dL PREDIABETES 101-126 mg/dL DIABETES 126 mg/dL or higher Performed By: #### H EMOG, BMPF, PHOS, MG #### [place] [address] Potassium [Moles/Vol] 4.6 mmol/L Normal 3.5-5.1 [facility] [place] Comment on above: Performed By: #### H EMOG, BMPF, PHOS, MG #### Testing performed at [address] [address] Sodium [Moles/Vol] 138 mmol/L Normal 137-145 [facility] Comment on above: Performed By: #### H EMOG, BMPF, PHOS, MG #### Testing performed at [address] [address] Urea nitrogen [Mass/Vol] 10 mg/dL Normal 7-20 [facility] Comment on above: Performed By: #### H EMOG, BMPF, PHOS, MG #### Testing performed at [address] [address] Anion gap [Moles/Vol] 13 mmol/L Normal [facility] [place] Comment on above: Performed By: #### B MPF, HEMOG ####Testing performed at [address] [address] Calcium [Mass/Vol] 9.3 mg/dL Normal 8.4-10.2 [facility] Comment on above: Performed By: #### B MPF, HEMOG ####Testing performed at [address] [address] Chloride [Moles/Vol] 107 mmol/L Normal 98-107 [facility] Comment on above: Result Comment: Plea note: Triglyceride levels of 600mg/dL or higher may positively bias chloride results by approximately 2.1 mmol Performed By: #### B MPF, HEMOG ####Testing performed at [address] [address] CO2 [Moles/Vol] 21 mmol/L Low 22-30 [facility] Comment on above: Performed By: #### B MPF, HEMOG ####Testing performed at [address] [address] Creatinine [Mass/Vol] 0.74 mg/dL Normal 0.70-1.20 [facility] [place] Comment on above: Performed By: #### B MPF, HEMOG ####Testing performed at [address] [address] EST. GFR, 121 ml/min/1.73sq.m Normal [facility] Comment on above: Performed By: #### B MPF, HEMOG ####Testing performed at [place] [id number] EST. GFR,Non 100 ml/min/1.73sq.m [facility] Comment on above: Performed By: #### B MPF, HEMOG ####Testing performed at [place] [id number] GFR Information Average GFR for 20-2 9 years old = 116. Normal [facility] Comment on above: Result Comment: Pit Recorder karl Kidney disease, GFR = <60. Kidney failure, GFR = <15. The GFR estimate is not adjusted for extreme body surface area or acute process, nor has it been validated for women or ethnic groups other than and . Performed By: #### B MPF, HEMOG ####[place] [address] Glucose [Mass/Vol] 95 mg/dL Normal 70-100 [facility] Comment on above: Result Comment: NORMAL <100 mg/dL PREDIABETES 101-126 mg/dL DIABETES 126 mg/dL or higher Performed By: #### B MPF, HEMOG ####Testing performed at [place] [id number] Potassium [Moles/Vol] 3.9 mmol/L Normal 3.5-5.1 [facility] [place] Comment on above: Performed By: #### B MPF, HEMOG ####Testing performed at [place] [id number] Sodium [Moles/Vol] 141 mmol/L Normal 137-145 [facility] Comment on above: Performed By: #### B MPF, HEMOG ####Testing performed at [place] [id number] Urea nitrogen [Mass/Vol] 9 mg/dL Normal 7-20 [facility] Comment on above: Performed By: #### B MPF, HEMOG ####Testing performed at [address] [address] CBC(NO DIFF)on 03-11-2023 Erythrocyte distribution width (RBC) [Ratio] 13.7 % Normal 11.5-14.5 [facility] Comment on above: Performed By: #### H EMOG, BMPF, PHOS, MG #### Testing performed at [address] [address] Hematocrit (Bld) [Volume fraction] 39.9 % Normal 36.0-48.0 [facility] Comment on above: Performed By: #### H EMOG, BMPF, PHOS, MG #### Testing performed at [address] [address] Hemoglobin (Bld) [Mass/Vol] 12.9 g/dL Normal 12.0-16.0 [facility] Comment on above: Performed By: #### H EMOG, BMPF, PHOS, MG #### Testing performed at [address] [address] MCH (RBC) [Entitic mass] 28.1 pg Normal 26.0-35.0 [facility] Comment on above: Performed By: #### H EMOG, BMPF, PHOS, MG #### Testing performed at [address] [address] MCHC (RBC) [Mass/Vol] 32.3 g/dL Normal 27.0-37.0 [facility] [place] Comment on above: Performed By: #### H EMOG, BMPF, PHOS, MG #### Testing performed at [address] [address] MCV (RBC) [Entitic vol] 87.0 fL Normal 80.0-100.0 [facility] Comment on above: Performed By: #### H EMOG, BMPF, PHOS, MG #### Testing performed at [address] [address] Platelet mean volume (Bld) [Entitic vol] 8.0 fL Normal 7.4-11.0 [facility] Comment on above: Performed By: #### H EMOG, BMPF, PHOS, MG #### Testing performed at [address] [address] Platelets (Bld) [#/Vol] 298 10*3/uL Normal 130-400 [facility] Comment on above: Performed By: #### H EMOG, BMPF, PHOS, MG #### Testing performed at [address] [address] RBC (Bld) [#/Vol] 4.59 10*6/uL Normal 4.0-5.4 [facility] Comment on above: Performed By: #### H EMOG, BMPF, PHOS, MG #### Testing performed at [address] [address] WBC (Bld) [#/Vol] 12.1 10*3/uL High 3.6-11.0 [facility] Comment on above: Performed By: #### H EMOG, BMPF, PHOS, MG #### Testing performed at [address] [address] Erythrocyte distribution width (RBC) [Ratio] 14.0 % Normal 11.5-14.5 [facility] Comment on above: Performed By: #### B MPF, HEMOG ####Testing performed at [address] [address] Hematocrit (Bld) [Volume fraction] 41.4 % Normal 36.0-48.0 [facility] Comment on above: Performed By: #### B MPF, HEMOG ####Testing performed at [address] [address] Hemoglobin (Bld) [Mass/Vol] 13.3 g/dL Normal 12.0-16.0 [facility] Comment on above: Performed By: #### B MPF, HEMOG ####Testing performed at [address] [address] MCH (RBC) [Entitic mass] 27.8 pg Normal 26.0-35.0 [facility] Comment on above: Performed By: #### B MPF, HEMOG ####Testing performed at [address] [address] MCHC (RBC) [Mass/Vol] 32.2 g/dL Normal 27.0-37.0 [facility] [place] Comment on above: Performed By: #### B MPF, HEMOG ####Testing performed at [address] [address] MCV (RBC) [Entitic vol] 86.4 fL Normal 80.0-100.0 [facility] Comment on above: Performed By: #### B MPF, HEMOG ####Testing performed at [address] [address] Platelet mean volume (Bld) [Entitic vol] 7.9 fL Normal 7.4-11.0 [facility] Comment on above: Performed By: #### B MPF, HEMOG ####Testing performed at [address] [address] Platelets (Bld) [#/Vol] 337 10*3/uL Normal 130-400 [facility] Comment on above: Performed By: #### B MPF, HEMOG ####Testing performed at [address] [address] RBC (Bld) [#/Vol] 4.80 10*6/uL Normal 4.0-5.4 [facility] Comment on above: Performed By: #### B MPF, HEMOG ####Testing performed at [address] [address] WBC (Bld) [#/Vol] 9.2 10*3/uL Normal 3.6-11.0 [facility] Comment on above: Performed By: #### B MPF, HEMOG ####Testing performed at [address] [address] CBC,PLATELETSon 03-11-2023 Erythrocyte distribution width (RBC) [Ratio] 13.7 % 11.5 - 14.5 % [facility] Hematocrit (Bld) [Volume fraction] 39.9 % 36.0 - 48.0 % [facility] Hemoglobin (Bld) [Mass/Vol] 12.9 g/dL [facility] Interpretation and review of laboratory results Abnormal [facility] MCH (RBC) [Entitic mass] 28.1 pg 26.0 - 35.0 PG [facility] MCHC (RBC) [Mass/Vol] 32.3 g/dL [facility] MCV (RBC) [Entitic vol] 87.0 fL [facility] Platelet mean volume (Bld) [Entitic vol] 8.0 fL [facility] Platelets (Bld) [#/Vol] 298 10*3/uL 130 - 400 10*3/uL [facility] RBC (Bld) [#/Vol] 4.59 10*6/uL 4.0 - 5.4 10*6/uL [facility] WBC (Bld) [#/Vol] 12.1 10*3/uL High 3.6 - 11.0 10*3/uL [facility] Erythrocyte distribution width (RBC) [Ratio] 14.0 % 11.5 - 14.5 % [facility] Hematocrit (Bld) [Volume fraction] 41.4 % 36.0 - 48.0 % [facility] Hemoglobin (Bld) [Mass/Vol] 13.3 g/dL [facility] MCH (RBC) [Entitic mass] 27.8 pg 26.0 - 35.0 PG [facility] MCHC (RBC) [Mass/Vol] 32.2 g/dL [facility] MCV (RBC) [Entitic vol] 86.4 fL [facility] Platelet mean volume (Bld) [Entitic vol] 7.9 fL [facility] Platelets (Bld) [#/Vol] 337 10*3/uL 130 - 400 10*3/uL [facility] RBC (Bld) [#/Vol] 4.80 10*6/uL 4.0 - 5.4 10*6/uL [facility] WBC (Bld) [#/Vol] 9.2 10*3/uL 3.6 - 11.0 10*3/uL [facility] HCG ( test) Ql (U)o n 03-11-2023 HCG.beta subunit [Moles/Vol] Negative [facility] Comment on above: LOT: [id number] Exp: Internal Control [facility] MAGNESIUMon 03-11-2023 Magnesium [Mass/Vol] 2.3 mg/dL Normal 1.6-2.3 [facility] Comment on above: Performed By: #### H EMOG, BMPF, PHOS, MG #### Testing performed at [address] [address] Magnesium [Mass/Vol] 2.3 mg/dL [facility] No Panel Informationon 03-11 [facility] PHOSPHATE, INORGANICon 03-11 Phosphate [Mass/Vol] 2.8 mg/dL [facility] PHOSPHOROUSon 03-11-2023 PHOSPHOROUS 2.8 MG/DL Normal 2.5-4.5 [facility] Comment on above: Performed By: #### T SCC #### Testing performed at [address] [address] REPEAT ABO/RHon 03-11-2023 REPEAT ABO/RH Positive Normal [facility] Comment on above: Performed By: #### R ABR ####Testing performed at [address] [address] REPEAT ABO/RH (D) TYPINGon 1 ABO and Rh group Nom (Bld ) Positive [facility] BMP FASTINGon 02-24-2023 Anion gap [Moles/Vol] 13 mmol/L Normal [facility] [place] Comment on above: Performed By: #### A KARL, RTOX, UHCGT #### Testing performed at [address] [address] Calcium [Mass/Vol] 9.4 mg/dL Normal 8.4-10.2 [facility] Comment on above: Performed By: #### A KARL, RTOX, UHCGT #### Testing performed at [address] [address] Chloride [Moles/Vol] 103 mmol/L Normal 98-107 [facility] Comment on above: Result Comment: Plea note: Triglyceride levels of 600mg/dL or higher may positively bias chloride results by approximately 2.1 mmol Performed By: #### A KARL, RTOX, UHCGT #### Testing performed at [address] [address] CO2 [Moles/Vol] 24 mmol/L Normal 22-30 [facility] Comment on above: Performed By: #### A KARL, RTOX, UHCGT #### Testing performed at [address] [place] [address] Creatinine [Mass/Vol] 0.78 mg/dL Normal 0.70-1.20 [facility] [place] Comment on above: Performed By: #### A KARL RTOX UHCGT #### Testing performed at [address] [address] EST. GFR, 114 ml/min/1.73sq.m [facility] Comment on above: Performed By: #### A KARL RTOX, UHCGT #### Testing performed at [address] [address] EST. GFR,Non 94 ml/min/1.73sq.m [facility] Comment on above: Performed By: #### A KARL RTOX UHCGT #### Testing performed at [address] [address] GFR Information Average GFR for 20-2 9 years old = 116. Normal [facility] Comment on above: Result Comment: Pit Recorder karl Kidney disease, GFR = <60. Kidney failure, GFR = <15. The GFR estimate is not adjusted for extreme body surface area or acute process, nor has it been validated for women or ethnic groups other than and . Performed By: #### A KARL RTOX, UHCGT #### Testing performed at [address] [address] Glucose [Mass/Vol] 94 mg/dL Normal 70-100 [facility] Comment on above: Result Comment: NORMAL <100 mg/dL PREDIABETES 101-126 mg/dL DIABETES 126 mg/dL or higher Performed By: #### A KARL, RTOX, UHCGT #### Testing performed at [address] [address] Potassium [Moles/Vol] 4.3 mmol/L Normal 3.5-5.1 [facility] [place] Comment on above: Performed By: #### A KARL, RTOX, UHCGT #### Testing performed at [address] [address] Sodium [Moles/Vol] 140 mmol/L Normal 137-145 [facility] Comment on above: Performed By: #### A KARL, RTOX, UHCGT #### Testing performed at [facility] [address] [place] [address] Urea nitrogen [Mass/Vol] 17 mg/dL Normal 7-20 [facility] Comment on above: Performed By: #### A FELIPA SHETH UHCGT #### Testing performed at [address] [address] CBC(NO DIFF)on 02-24-2023 Erythrocyte distribution width (RBC) [Ratio] 13.6 % Normal 11.5-14.5 [facility] Comment on above: Performed By: #### L VB1 #### Testing performed at [facility] Hematocrit (Bld) [Volume fraction] 42.0 % Normal 36.0-48.0 [facility] Comment on above: Performed By: #### L VB1 #### Testing performed at [facility] Hemoglobin (Bld) [Mass/Vol] 13.6 g/dL Normal 12.0-16.0 [facility] Comment on above: Performed By: #### L VB1 #### Testing performed at [facility] MCH (RBC) [Entitic mass] 28.0 pg Normal 26.0-35.0 [facility] Comment on above: Performed By: #### L VB1 #### Testing performed at [facility] MCHC (RBC) [Mass/Vol] 32.4 g/dL Normal 27.0-37.0 [facility] [place] Comment on above: Performed By: #### L VB1 #### Testing performed at [facility] MCV (RBC) [Entitic vol] 86.5 fL Normal 80.0-100.0 [facility] Comment on above: Performed By: #### L VB1 #### Testing performed at [facility] Platelet mean volume (Bld) [Entitic vol] 7.8 fL Normal 7.4-11.0 [facility] Comment on above: Performed By: #### L VB1 #### Testing performed at [facility] Platelets (Bld) [#/Vol] 367 10*3/uL Normal 130-400 [facility] Comment on above: Performed By: #### L VB1 #### Testing performed at [facility] RBC (Bld) [#/Vol] 4.85 10*6/uL Normal 4.0-5.4 [facility] Comment on above: Performed By: #### L VB1 #### Testing performed at [facility] WBC (Bld) [#/Vol] 9.2 10*3/uL Normal 3.6-11.0 [facility] Comment on above: Performed By: #### L VB1 #### Testing performed at [facility] PROTIMEon 02-24-2023 INR Coag (PPP) [Relative time] 0.94 {INR} Normal 0.85-1.10 [facility] Comment on above: Result Comment: 2.0-3.0 THERAPEUTIC RANGE 2.5-3.5 MECHANICAL VALVE RANGE Performed By: #### L VB1 #### Testing performed at [facility] PT Coag (PPP) [Time] 12.7 s Normal 11.8-14.4 [facility] Comment on above: Performed By: #### L VB1 #### Testing performed at [facility] PTTon 02-24-2023 aPTT Coag (Bld) [Time] 30.8 s Normal 22.4-34.7 [facility] Comment on above: Result Comment: CARDIAC AND PE/DVT THERAPUTIC RANGE 69-97 SEC VASCULAR/THREATENED LIMB THERAPUTIC RANGE 80-112 SEC Performed By: #### L VB1 #### Testing performed at [facility] TYPE AND SCREEN CROSSMATCH C ONVERTIBLEon 02-24-2023 TYPE AND SCREEN CROSSMATCH CONVERTIBLE WORKUP EXPIRES 03/14/2023,2359 ABO/RH(D) A POSITIVE ANTIBODY SCREEN NEGATIVE ARM BAND NUMBER [id number] Normal [facility] Comment on above: Performed By: #### T SCC #### Testing performed at [facility] [address] [facility] [place] [facility] [place] [address] URINE HCG QUALon 02-24-2023 Beta HCG ( test) Ql (U) Negative Normal NEGATIVE [facility] Comment on above: Performed By: #### U HCGT ####Testing performed at [address] [address] PLASMA ZINCon 02-14-2023 PLASMA ZINC 68 Normal [facility] Comment on above: Result Comment: Refe rence range: 44 to 115 Unit: ug/dL (NOTE) This test was developed and its performance characteristics determined by [facility]. It has not been cleared or approved by the Food and Drug Administration. Detection Limit = 5 PERFORMED AT [facility] Performed By: #### A KARL, RTOX, UHCGT #### Testing performed at [address] [address] VIT.B1 THIAMINE-BLDon 2022 VIT.B1 THIAMINE-BLD 146.8 Normal [facility] Comment on above: Result Comment: Refe rence range: 66.5 to 200.0 Unit: nmol/L (NOTE) This test was developed and its performance characteristics determined by [facility]. It has not been cleared or approved by the Food and Drug Administration. PERFORMED AT [facility] Performed By: #### L VB1 ####Testing performed at [facility] 25 0H VITAMIN D LEVELon 01-30 25 0H VITAMIN D LEVEL 44.6 NG/ML Normal [facility] [place] Comment on above: Result Comment: DEFICIENT <20 NG/ML INSUFFICIENT 20-<30 NG/ML SUFFICIENT 30-100 NG/ML POTENTIAL TOXICITY >100 NG/ML Performed By: #### T SCC #### Testing performed at [address] [address] B12 FOLATEon 02-10-2023 Cobalamin (Vitamin B12) [Mass/Vol] 594 pg/mL Normal 239-931 [facility] Comment on above: Performed By: #### A KARL, RTOX, UHCGT #### Testing performed at [address] [address] FOLATE >20.0 High 2.56-20.0 [facility] Comment on above: Performed By: #### A KARL, RTOX, UHCGT #### Testing performed at [address] [address] CBCon 02-10-2023 ABSOLUTE BAS 0.0 10*3/uL Normal 0.0-0.2 [facility] Comment on above: Performed By: #### A KARL, RTOX, UHCGT #### Testing performed at [address] [address] ABSOLUTE EOS 0.1 10*3/uL Normal 0.0-0.7 [facility] Comment on above: Performed By: #### A KARL, RTOX, UHCGT #### Testing performed at [address] [address] ABSOLUTE NEUTROPHIL COUNT 6.8 10*3/uL High 1.4-6.5 [facility] Comment on above: Performed By: #### A KARL, RTOX, UHCGT #### Testing performed at [address] [address] Basophils/100 WBC (Bld) 0.4 % Normal 0.0-2.0 [facility] Comment on above: Performed By: #### A KARL, RTOX, UHCGT #### Testing performed at [address] [address] DTYPE AUTO DIFF Normal [facility] Comment on above: Performed By: #### A KARL, RTOX, UHCGT #### Testing performed at [address] [address] Eosinophils/100 WBC (Bld) 1.0 % Normal 0.0-11.0 [facility] Comment on above: Performed By: #### A KARL, RTOX, UHCGT #### Testing performed at [address] [address] Lymphocytes (Bld) [#/Vol] 2.3 10*3/uL Normal 1.2-3.4 [facility] Comment on above: Performed By: #### A KARL, RTOX, UHCGT #### Testing performed at [address] [address] Lymphocytes/100 WBC (Bld) 23.0 % Normal 20.0-55.0 [facility] Comment on above: Performed By: #### A KARL, RTOX, UHCGT #### Testing performed at [facility] [place] [facility] [address] [place] [address] Monocytes (Bld) [#/Vol] 0.7 10*3/uL Normal 0.0-0.7 [facility] Comment on above: Performed By: #### A KARL RTOX UHCGT #### Testing performed at [address] [address] Monocytes/100 WBC (Bld) 7.1 % Normal 0.0-10.0 [facility] Comment on above: Performed By: #### A KARL RTOX, UHCGT #### Testing performed at [address] [address] Neutrophils/100 WBC (Bld) 68.5 % Normal 37.0-75.0 [facility] Comment on above: Performed By: #### A KRAL RTOX UHCGT #### Testing performed at [address] [address] Erythrocyte distribution width (RBC) [Ratio] 14.2 % Normal 11.5-14.5 [facility] Comment on above: Performed By: #### A KARL RTOX, UHCGT #### Testing performed at [address] [address] Hematocrit (Bld) [Volume fraction] 40.3 % Normal 36.0-48.0 [facility] Comment on above: Performed By: #### A KARL RTOX, UHCGT #### Testing performed at [address] [address] Hemoglobin (Bld) [Mass/Vol] 13.0 g/dL Normal 12.0-16.0 [facility] Comment on above: Performed By: #### A AKRL, RTOX, UHCGT #### Testing performed at [address] [address] MCH (RBC) [Entitic mass] 28.0 pg Normal 26.0-35.0 [facility] Comment on above: Performed By: #### A KARL, RTOX, UHCGT #### Testing performed at [address] [address] MCHC (RBC) [Mass/Vol] 32.3 g/dL Normal 27.0-37.0 [facility] [place] Comment on above: Performed By: #### A KARL, RTOX, UHCGT #### Testing performed at [address] [address] MCV (RBC) [Entitic vol] 86.8 fL Normal 80.0-100.0 [facility] Comment on above: Performed By: #### A KARL, RTOX, UHCGT #### Testing performed at [address] [address] Platelet mean volume (Bld) [Entitic vol] 7.7 fL Normal 7.4-11.0 [facility] Comment on above: Performed By: #### A KARL, RTOX, UHCGT #### Testing performed at [address] [address] Platelets (Bld) [#/Vol] 334 10*3/uL Normal 130-400 [facility] Comment on above: Performed By: #### A KARL, RTOX, UHCGT #### Testing performed at [address] [address] RBC (Bld) [#/Vol] 4.64 10*6/uL Normal 4.0-5.4 [facility] Comment on above: Performed By: #### A KARL, RTOX, UHCGT #### Testing performed at [address] [address] WBC (Bld) [#/Vol] 9.9 10*3/uL Normal 3.6-11.0 [facility] Comment on above: Performed By: #### A KARL, RTOX, UHCGT #### Testing performed at [address] [address] CMP FASTINGon 02-10-2023 A:G RATIO 1.5 RATIO Normal [facility] Comment on above: Performed By: #### A KARL, RTOX, UHCGT #### Testing performed at [address] [address] ALBUMIN 4.5 G/dl Normal 3.5-5.0 [facility] Comment on above: Performed By: #### A KARL, RTOX, UHCGT #### Testing performed at [address] [address] ALP [Catalytic activity/Vol] 104 U/L Normal 38-126 [facility] Comment on above: Performed By: #### A KARL, RTOX, UHCGT #### Testing performed at [address] [address] ALT [Catalytic activity/Vol] 23 U/L Normal <35 [facility] Comment on above: Performed By: #### A KARL, RTOX, UHCGT #### Testing performed at [address] [address] AST [Catalytic activity/Vol] 27 U/L Normal 14-36 [facility] Comment on above: Performed By: #### A KARL, RTOX, UHCGT #### Testing performed at [address] [address] Bilirubin [Mass/Vol] 0.5 mg/dL Normal 0.2-1.3 [facility] Comment on above: Performed By: #### A KARL, RTOX, UHCGT #### Testing performed at [address] [address] Calcium [Mass/Vol] 9.8 mg/dL Normal 8.4-10.2 [facility] Comment on above: Performed By: #### A KARL, RTOX, UHCGT #### Testing performed at [address] [address] Chloride [Moles/Vol] 103 mmol/L Normal 98-107 [facility] Comment on above: Result Comment: Plea se note: Triglyceride levels of 600mg/dL or higher may positively bias chloride results by approximately 2.1 mmol Performed By: #### A KARL, RTOX, UHCGT #### Testing performed at [address] [address] CO2 [Moles/Vol] 25 mmol/L Normal 22-30 [facility] [facility] Comment on above: Performed By: #### A KARL, RTOX, UHCGT #### Testing performed at [address] [address] Creatinine [Mass/Vol] 0.85 mg/dL Normal 0.70-1.20 [facility] [place] Comment on above: Performed By: #### A KARL, RTOX, UHCGT #### Testing performed at [address] [address] EST. GFR, 103 ml/min/1.73sq.m [facility] Comment on above: Performed By: #### A KARL, RTOX, UHCGT #### Testing performed at [address] [address] EST. GFR,Non 85 ml/min/1.73sq.m Normal [facility] Comment on above: Performed By: #### A KARL, RTOX, UHCGT #### Testing performed at [address] [address] GFR Information Average GFR for 20-2 9 years old = 116. Normal [facility] Comment on above: Result Comment: Pit Recorder karl Kidney disease, GFR = <60. Kidney failure, GFR = <15. The GFR estimate is not adjusted for extreme body surface area or acute process, nor has it been validated for women or ethnic groups other than and . Performed By: #### A KARL, RTOX, UHCGT #### Testing performed at [address] [address] Glucose [Mass/Vol] 91 mg/dL Normal 70-100 [facility] Comment on above: Result Comment: NORMAL <100 mg/dL PREDIABETES 101-126 mg/dL DIABETES 126 mg/dL or higher Performed By: #### A KARL, RTOX, UHCGT #### Testing performed at [address] [address] Potassium [Moles/Vol] 4.7 mmol/L Normal 3.5-5.1 [facility] [place] Comment on above: Performed By: #### A KARL, RTOX, UHCGT #### Testing performed at [address] [address] Protein [Mass/Vol] 7.6 g/dL Normal 6.3-8.2 [facility] Comment on above: Performed By: #### A KARL, RTOX, UHCGT #### Testing performed at [address] [address] Sodium [Moles/Vol] 139 mmol/L Normal 137-145 [facility] Comment on above: Performed By: #### A KARL, RTOX, UHCGT #### Testing performed at [address] [address] Urea nitrogen [Mass/Vol] 18 mg/dL Normal 7-20 [facility] Comment on above: Performed By: #### A KARL, RTOX, UHCGT #### Testing performed at [address] [address] HEMOGLOBIN A1Con 02-10-2023 Glucose [Mass/Vol] 117 mg/dL Normal [facility] Comment on above: Performed By: #### A KARL, RTOX, UHCGT #### Testing performed at [address] [address] HbA1c (Bld) [Mass fraction] 5.7 % Normal 0-6 [facility] Comment on above: Result Comment: NORMAL <5.7% PREDIABETES 5.7-6.4% DIABETES 6.5% OR HIGHER Performed By: #### A KARL, RTOX, UHCGT #### Testing performed at [address] [address] IRON PROFILEon 02-10-2023 IRON BINDING 384 UG/DL Normal [facility] Comment on above: Performed By: #### A KARL, RTOX, UHCGT #### Testing performed at [address] [address] TRANSFERRIN SATURATION,CALCULATED 24 % Normal [facility] Comment on above: Performed By: #### A KARL, RTOX, UHCGT #### Testing performed at [address] [address] Iron [Mass/Vol] 93 ug/dL Normal 37-170 [facility] Comment on above: Performed By: #### A KARL, RTOX, UHCGT #### Testing performed at [address] [address] LIPID PROFILEon 02-10-2023 Cholesterol [Mass/Vol] 199 mg/dL Normal 107-217 [facility] Comment on above: Performed By: #### A KARL, RTOX, UHCGT #### Testing performed at [address] [address] Cholesterol in HDL [Mass/Vol] 52 mg/dL Normal 33-75 [facility] Comment on above: Performed By: #### A KARL, RTOX, UHCGT #### Testing performed at [address] [address] Cholesterol in LDL [Mass/Vol] 112 mg/dL Normal [facility] Comment on above: Performed By: #### A KARL, RTOX, UHCGT #### Testing performed at [address] [address] Cholesterol in VLDL [Mass/Vol] 35 mg/dL Normal [facility] Comment on above: Performed By: #### A KARL, RTOX, UHCGT #### Testing performed at [address] [address] Cholesterol.total/Desirae sterol in HDL [Mass ratio] 3.83 {ratio} Normal [facility] Comment on above: Result Comment: RISK TOTAL/HDL RATIO MEN WOMEN 1/2 AVERAGE 3.43 3.27 AVERAGE 4.97 4.44 2X AVERAGE 9.55 7.05 3X AVERAGE 23.99 11.04 Performed By: #### A KARL, RTOX, UHCGT #### Testing performed at [address] [address] Triglyceride [Mass/Vol] 176 mg/dL High 0-150 [facility] Comment on above: Performed By: #### A KARL, RTOX, UHCGT #### Testing performed at [address] [address] NICOTINE SCREEN, URINEon COTININE Negative Normal NEGATIVE [facility] Comment on above: Result Comment: Cut- off concentration of 200 ng/mL Performed By: #### A KARL, RTOX, UHCGT #### Testing performed at [address] [address] RAPID TOX SCREEN,URINEon AMPHETAMINE Negative Normal NEGATIVE [facility] Comment on above: Result Comment: <500 ng/ml CUTOFF Performed By: #### A KARL, RTOX, UHCGT #### Testing performed at [address] [address] BARBITURATES Negative Normal NEGATIVE [facility] Comment on above: Result Comment: <200 ng/ml CUTOFF Performed By: #### A KARL, RTOX, UHCGT #### Testing performed at [address] [place] [address] BENZODIAZEPINES Negative Normal NEGATIVE [facility] Comment on above: Result Comment: <150 ng/ml CUTOFF Performed By: #### A KARL, RTOX, UHCGT #### Testing performed at [address] [place] [address] BUPRENORPHINE Negative Normal NEGATIVE [facility] Comment on above: Result Comment: <10 ng/ml CUTOFF Performed By: #### A KARL, RTOX, UHCGT #### Testing performed at [address] [place] [address] CANNABINOIDS Negative Normal NEGATIVE [facility] Comment on above: Result Comment: <50 ng/ml CUTOFF Performed By: #### A KARL, RTOX, UHCGT #### Testing performed at [address] [place] [address] COCAINE Negative Normal NEGATIVE [facility] Comment on above: Result Comment: <150 ng/ml CUTOFF Performed By: #### A KARL, RTOX, UHCGT #### Testing performed at [address] [place] [address] METHADONE Negative Normal NEGATIVE [facility] Comment on above: Result Comment: <200 ng/ml CUTOFF Performed By: #### A KARL, RTOX, UHCGT #### Testing performed at [address] [place] [address] METHAMPHETAMINE Negative Normal NEGATIVE [facility] Comment on above: Result Comment: <500 ng/ml CUTOFF Performed By: #### A KARL, RTOX, UHCGT #### Testing performed at [address] [place] [address] OPIATES Negative Normal NEGATIVE [facility] Comment on above: Result Comment: <100 ng/ml CUTOFF Performed By: #### A KARL, RTOX, UHCGT #### Testing performed at [address] [place] [address] OXYCODONE Negative Normal NEGATIVE [facility] Comment on above: Result Comment: <100 ng/ml CUTOFF Performed By: #### A KARL, RTOX, UHCGT #### Testing performed at [address] [address] PHENCYCLIDINE Negative Normal NEGATIVE [facility] Comment on above: Result Comment: <25 ng/ml CUTOFF Performed By: #### A KARL, RTOX, UHCGT #### Testing performed at [address] [address] PROPOXYPHENE Negative Normal NEGATIVE [facility] Comment on above: Result Comment: <300 ng/ml CUTOFF Performed By: #### A KARL, RTOX, UHCGT #### Testing performed at [address] [address] TRICYCLIC ANTIDEPRESSANTS Negative Normal NEGATIVE [facility] Comment on above: Result Comment: <300 ng/ml CUTOFF Performed By: #### A KARL, RTOX, UHCGT #### Testing performed at [address] [address] FENTANYL Negative Normal NEGATIVE [facility] Comment on above: Result Comment: 20 n g/mL CUTOFF *Unconfirmed Screening Result* Unconfirmed screening results are to be used only for medical treatment purposes. This test has not been approved by the FDA. Performed By: #### A KARL, RTOX, UHCGT #### Testing performed at [address] [address] TSHon 02-10-2023 TSH 1.060 uIU/ML Normal 0.465-4.680 [facility] Comment on above: Performed By: #### A KARL, RTOX, UHCGT #### Testing performed at [address] [address] URINE HCG QUALon 02-10-2023 Beta HCG ( test) Ql (U) Negative Normal NEGATIVE [facility] Comment on above: Performed By: #### A KARL, RTOX, UHCGT #### Testing performed at [address] [address] MUMPS IGG ANTIBODYon 023 MUMPS IGG ANTIBODY Positive Normal [facility] Comment on above: Result Comment: INTE RPRETATIVE COMMENT NEGATIVE: No IgG antibodies specific to Mumps detected. It is likely that the patient has not had a previous exposure to Mumps through infection or vaccination. Alternatively, the patient may have been exposed to Mumps but a failure to respond may indicate immunodeficiency. EQUIVOCAL:Equivocal results; obtain additional sample for retesting. POSITIVE: IgG antibody to Mumps detected. This may indicate that the patient was exposed to Mumps through infection or vaccination. The interpretation of serological tests should take into account the immunological status of the patient. Test results for patients, including immunocompromised patients, neonates, and pediatric patients, reflect their capacity to respond immunologically to the virus as well as their exposure to the pathogen. Patients treated with IVIG may demonstrate altered results in serological assays. Performed By: #### M UM #### [facility] [address] [place] [address] RUBELLA IGG ABon 12-17-2022 RUBELLA IGG AB Positive [facility] Comment on above: Result Comment: INTE RPRETATIVE COMMENT NEGATIVE: No IgG antibodies specific to Rubella detected. It is likely that the patient has not had a previous exposure to Rubella through infection or vaccination. Alternatively, the patient may have been exposed to Rubella but a failure to respond may indicate immunodeficiency. EQUIVOCAL:Equivocal results; obtain additional sample for retesting. POSITIVE: IgG antibody to Rubella detected. This may indicate that the patient was exposed to Rubella through infection or vaccination. The interpretation of serological tests should take into account the immunological status of the patient. Test results for patients, including immunocompromised patients, neonates, and pediatric patients, reflect their capacity to respond immunologically to the virus as well as their exposure to the pathogen. Patients treated with IVIG may demonstrate altered results in serological assays. Performed By: #### R UB #### [facility] [address] [place] [address] RUBEOLA IGG ABon 12-17-2022 RUBEOLA IGG AB Positive [facility] Comment on above: Result Comment: INTE RPRETATIVE COMMENT NEGATIVE: No IgG antibodies specific to Measles detected. It is likely that the patient has not had a previous exposure to Measles through infection or vaccination. Alternatively, the patient may have been exposed to Measles but a failure to respond may indicate immunodeficiency. EQUIVOCAL:Equivocal results; obtain additional sample for retesting. POSITIVE: IgG antibody to Measles detected. This may indicate that the patient was exposed to Measles through infection or vaccination. The interpretation of serological tests should take into account the immunological status of the patient. Test results for patients, including immunocompromised patients, neonates, and pediatric patients, reflect their capacity to respond immunologically to the virus as well as their exposure to the pathogen. Patients treated with IVIG may demonstrate altered results in serological assays. Performed By: #### R UBEG #### [facility] [address] [place] [address] VARICELLA ZOSTER IGG ABon VARICELLA ZOSTER IGG AB Negative Normal NEGATIVE [facility] Comment on above: Result Comment: INTE RPRETATIVE COMMENT NEGATIVE: No IgG antibodies specific to VZV detected. It is likely that the patient has not had a previous exposure to VZV through infection or vaccination. Alternatively, the patient may have been exposed to VZV but a failure to respond may indicate immunodeficiency. EQUIVOCAL:Equivocal results; obtain additional sample for retesting. POSITIVE: IgG antibody to VZV detected. This may indicate that the patient was exposed to VZV through infection or vaccination. The interpretation of serological tests should take into account the immunological status of the patient. Test results for patients, including immunocompromised patients, neonates, and pediatric patients, reflect their capacity to respond immunologically to the virus as well as their exposure to the pathogen. Patients treated with IVIG may demonstrate altered results in serological assays. Performed By: #### V ARZG #### [facility] [address] [place], [place] VARICELLA ZOSTER IGG ABon Lab Specimen Source Normal [facility] Comment on above: Performed By: #### V ARZG #### [facility] [address] [place] Performed By: #### M UMPG #### [facility] [address] [place] Performed By: #### R UBIG #### [facility] [address] [place] Performed By: #### R UBEG #### [facility] [address] 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 Annual Follow-up in 1 year or as needed. Chief Complaint Patient is here for her yearly exam and pap test. LMP: 11/17/2022. Patient does self breast exams and has no concerns at this time. History of Present IllnessPresents for annual exam. She voices no complaints and is doing well. Denies any bowel or bladder problems. Denies any breast problems. Her had a vasectomy. Review of Systems Review of Systems: Constitutional: No fever or chills Respiratory: No shortness of breath, or cough Cardiovascular: No chest pain or syncope Breasts: No breast pain, no masses, no nipple discharge Gastrointestinal: No nausea, vomiting, or diarrhea, no abdominal pain Genitourinary: No dysuria or frequency Gynecology: Negative except as noted in history of present illness All other: All other systems reviewed and negative for complaint Active Problems Problems Anemia (285.9) (D64.9) Anxiety (300.00) (F41.9) BMI 50.0-59.9, adult (V85.43) (Z68.43) Bright red rectal bleeding (569.3) (K62.5) COVID-19 virus infection (079.89) (U07.1) Diarrhea (787.91) (R19.7) Exertional shortness of breath (786.05) (R06.02) Ganglion cyst (727.43) (M67.40) Inappropriate sinus tachycardia (427.89) (R00.0) Increased risk of breast cancer (V15.89) (Z91.89) Tyrer-Cuzick score 29.2% on Myriad test 08/02/18. Genetics negative though Low back pain (724.2) (M54.50) Melena (578.1) (K92.1) Morbid obesity (278.01) (E66.01) Morbid obesity with BMI of 50.0-59.9, adult (278.01,V85.43) (E66.01,Z68.43) exam (V24.2) (Z39.2) Pre-operative clearance (V72.84) (Z01.818) Screening for breast cancer (V76.10) (Z12.39) Screening for cervical cancer (V76.2) (Z12.4) Screening for STD (sexually transmitted disease) (V74.5) (Z11.3) Tenesmus (787.99) (R19.8) Thoracic back pain (724.1) (M54.6) Women's annual routine gynecological examination (V72.31) (Z01.419) Past Medical History Problems History of spontaneous (V13.29) (Z87.59) 09/2016 History of Menarche (V21.8) ONSET AGE 11 History of Normal vaginal delivery (650) (O80) 06/06/2020; 39 WEEKS; MALE; 9LBS 5OZ 05/05/2019; 39 WEEKS; MALE; 8LBS 1OZ History of Vaginal Pap smear (V76.47) (Z12.72) 12/05/2019-NIL 02/24/2017-NEGATIVE Surgical History Problems History of Colonoscopy History of Hysteroscopy DANDC History of Uterine polypectomy History of [place] tooth extraction Resolved Date: 02 Aug 2019 History of Wrist surgery TENDON REPAIR Family History Mother No pertinent family history mom had breast cancer in hre 20s, multiple maternal aunts Father Family history of diabetes mellitus (V18.0) (Z83.3) Family history of hypertension (V17.49) (Z82.49) Grandparent Family history of malignant neoplasm of breast (V16.3) (Z80.3) Family history of pancreatic cancer (V16.0) (Z80.0) Aunt Family history of malignant neoplasm of breast (V16.3) (Z80.3) Social History Problems Daily caffeine consumption Never smoker No alcohol use No illicit drug use Sexually active Allergies Medication morphine Recorded By: Zee Branch; 12/05/2021 1:41:38 PM Current Meds Medication NameInstruction buPROPion HCl ER (XL) 300 MG Oral Tablet Extended Release 24 HourTAKE 1 TABLET DAILY. Metoprolol Succinate ER 50 MG Oral Tablet Extended Release 24 HourTake 1 tablet daily Omeprazole 40 MG Oral Capsule Delayed ReleaseTAKE 1 CAPSULE Daily tiZANidine HCl - 4 MG Oral CapsuleTAKE 1 CAPSULE Daily Vitals Vital Signs Recorded: 01Dec2022 03:00PM [id number] Hxdpascnj19 Height5 ft 6 in Cibdmi465.2 kg BMI Bejrnwsngz81.24 kg/m2 BSA Calculated2.41 Tobacco Useb) No PHQ-2 #1. Over the last 2 weeks have you felt down, depressed or hopeless? (If yes, answer PHQ-9 below)No PHQ-2 #2. Over the last 2 weeks have you felt little interest or pleasure in doing things? (If yes, answer PHQ-9 below)No Falls Screening (Age 18+)a) No falls within the last year [id number] Physical Exam PHYSICAL EXAMINATION: Well-developed, well nourished, in no acute distress, alert and oriented x three, is pleasant and cooperative. HEENT: Clear. Pupils equal, round and reactive to light and accommodation. Extraocular muscles are intact. Oral mucosa pink without exudate. NECK: No lymphadenopathy, no thyromegaly. BREASTS: Symmetric, no palpable masses. No nipple discharge or retraction. LUNGS: Clear bilaterally. HEART: Regular rate and rhythm without murmurs. ABDOMEN: Normoactive bowel sounds, soft and nontender, no guard (more content not included)... Normal [employer] Tobacco Screening.on 023 Adult depression screening assessment No [facility] Work Phone: Fall risk assessment a) No falls within the last year [facility] Work Phone: Last menstrual period start date 17Nov2022 [facility] Work Phone: Tobacco use status [facility] b) No [facility] Work Phone: 3611-20-2022 36 [employer]ed [employer] [facility] 36on 11-19-2022 36 ROUTING TO STEPHANIE GUTIERREZ TEAM. 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 Aye states she has met all insurance requirements. Aye states she would like to get scheduled for the first available appt. Aye states she is available for call back anytime. Please contact Aye and advise. Office Name: [facility] Medication Refills need, if any: N/A Medication Name: N/A Normal [facility] PLASMA ZINCon 11-19-2022 PLASMA ZINC 84 Normal [facility] Comment on above: Result Comment: Refe rence range: 44 to 115 Unit: ug/dL (NOTE) This test was developed and its performance characteristics determined by [facility]. It has not been cleared or approved by the Food and Drug Administration. Detection Limit = 5 PERFORMED AT [facility] Performed By: #### L VB1 #### Testing performed at [facility] VIT.B1 THIAMINE-BLDon 2022 VIT.B1 THIAMINE-BLD 146.9 [facility] Comment on above: Result Comment: Refe rence range: 66.5 to 200.0 Unit: nmol/L (NOTE) This test was developed and its performance characteristics determined by [facility]. It has not been cleared or approved by the Food and Drug Administration. PERFORMED AT [facility] Performed By: #### L VB1 ####Testing performed at [facility] 25 0H VITAMIN D LEVELon 10-30 25 0H VITAMIN D LEVEL 27.0 NG/ML Low >30 [facility] [place] Comment on above: Result Comment: DEFICIENT <20 NG/ML INSUFFICIENT 20-<30 NG/ML SUFFICIENT 30-100 NG/ML POTENTIAL TOXICITY >100 NG/ML Performed By: #### A KARL, RTOX, UHCGT #### Testing performed at [facility] [address] [place] [address] B12 FOLATEon 11-17-2022 Cobalamin (Vitamin B12) [Mass/Vol] 454 pg/mL Normal 180-914 [facility] Comment on above: Performed By: #### A KARL, RTOX, UHCGT #### Testing performed at [facility] [address] [facility] [place] [address] FOLATE >23.6 Normal >5.9 [facility] Comment on above: Performed By: #### A F[facility]IPA SHETH, [facility] #### Testing performed at [address] [address] CBCon 11-17-2022 ABSOLUTE BAS 0.0 10*3/uL Normal 0.0-0.2 [facility] Comment on above: Performed By: #### L VB1 #### Testing performed at [facility] ABSOLUTE EOS 0.1 10*3/uL Normal 0.0-0.7 [facility] Comment on above: Performed By: #### L VB1 #### Testing performed at [facility] ABSOLUTE NEUTROPHIL COUNT 4.9 10*3/uL Normal 1.4-6.5 [facility] Comment on above: Performed By: #### L VB1 #### Testing performed at [facility] Basophils/100 WBC (Bld) 0.4 % Normal 0.0-2.0 [facility] Comment on above: Performed By: #### L VB1 #### Testing performed at [facility] DTYPE AUTO DIFF Normal [facility] Comment on above: Performed By: #### L VB1 #### Testing performed at [facility] Eosinophils/100 WBC (Bld) 1.1 % Normal 0.0-11.0 [facility] Comment on above: Performed By: #### L VB1 #### Testing performed at [facility] Lymphocytes (Bld) [#/Vol] 2.5 10*3/uL Normal 1.2-3.4 [facility] Comment on above: Performed By: #### L VB1 #### Testing performed at [facility] Lymphocytes/100 WBC (Bld) 30.5 % Normal 20.0-55.0 [facility] Comment on above: Performed By: #### L VB1 #### Testing performed at [facility] Monocytes (Bld) [#/Vol] 0.6 10*3/uL Normal 0.0-0.7 [facility] Comment on above: Performed By: #### L VB1 #### Testing performed at [facility] Monocytes/100 WBC (Bld) 7.9 % Normal 0.0-10.0 [facility] Comment on above: Performed By: #### L VB1 #### Testing performed at [facility] Neutrophils/100 WBC (Bld) 60.1 % Normal 37.0-75.0 [facility] Comment on above: Performed By: #### L VB1 #### Testing performed at [facility] Erythrocyte distribution width (RBC) [Ratio] 13.7 % Normal 11.5-14.5 [facility] Comment on above: Performed By: #### L VB1 #### Testing performed at [facility] Hematocrit (Bld) [Volume fraction] 39.0 % Normal 36.0-48.0 [facility] Comment on above: Performed By: #### L VB1 #### Testing performed at [facility] Hemoglobin (Bld) [Mass/Vol] 12.7 g/dL Normal 12.0-16.0 [facility] Comment on above: Performed By: #### L VB1 #### Testing performed at [facility] MCH (RBC) [Entitic mass] 27.9 pg Normal 26.0-35.0 [facility] Comment on above: Performed By: #### L VB1 #### Testing performed at [facility] MCHC (RBC) [Mass/Vol] 32.6 g/dL Normal 27.0-37.0 [facility] [place] Comment on above: Performed By: #### L VB1 #### Testing performed at [facility] MCV (RBC) [Entitic vol] 85.7 fL Normal 80.0-100.0 [facility] Comment on above: Performed By: #### L VB1 #### Testing performed at [facility] Platelet mean volume (Bld) [Entitic vol] 8.1 fL Normal 7.4-11.0 [facility] Comment on above: Performed By: #### L VB1 #### Testing performed at [facility] Platelets (Bld) [#/Vol] 327 10*3/uL Normal 130-400 [facility] Comment on above: Performed By: #### L VB1 #### Testing performed at [facility] RBC (Bld) [#/Vol] 4.55 10*6/uL Normal 4.0-5.4 [facility] Comment on above: Performed By: #### L VB1 #### Testing performed at [facility] WBC (Bld) [#/Vol] 8.1 10*3/uL Normal 3.6-11.0 [facility] Comment on above: Performed By: #### L VB1 #### Testing performed at [facility] CMP FASTINGon 11-17-2022 A:G RATIO 1.1 RATIO Low 1.3-2.2 [facility] Comment on above: Performed By: #### L VB1 #### Testing performed at [facility] ALBUMIN 3.8 G/dl Normal 3.5-5.0 [facility] Comment on above: Performed By: #### L VB1 #### Testing performed at [facility] ALP [Catalytic activity/Vol] 78 U/L Normal 38-126 [facility] Comment on above: Performed By: #### L VB1 #### Testing performed at [facility] ALT [Catalytic activity/Vol] 22 U/L Normal 14-54 [facility] Comment on above: Performed By: #### L VB1 #### Testing performed at [facility] AST [Catalytic activity/Vol] 19 U/L Normal 15-41 [facility] Comment on above: Performed By: #### L VB1 #### Testing performed at [facility] Bilirubin [Mass/Vol] 0.6 mg/dL Normal 0.2-1.2 [facility] Comment on above: Performed By: #### L VB1 #### Testing performed at [facility] Calcium [Mass/Vol] 9.0 mg/dL Normal 8.4-10.2 [facility] Comment on above: Performed By: #### L VB1 #### Testing performed at [facility] Chloride [Moles/Vol] 102 mmol/L Normal 98-107 [facility] Comment on above: Performed By: #### L VB1 #### Testing performed at [facility] CO2 [Moles/Vol] 26 mmol/L Normal 22-30 [facility] Comment on above: Performed By: #### L VB1 #### Testing performed at [facility] Creatinine [Mass/Vol] 0.79 mg/dL Normal 0.52-1.04 [facility] [place] [facility] Comment on above: Performed By: #### L VB1 #### Testing performed at [facility] EST. GFR, 113 ml/min/1.73sq.m [facility] Comment on above: Performed By: #### L VB1 #### Testing performed at [facility] EST. GFR,Non 94 ml/min/1.73sq.m [facility] Comment on above: Performed By: #### L VB1 #### Testing performed at [facility] GFR Information Average GFR for 20-2 9 years old = 116. Normal [facility] Comment on above: Result Comment: Pit Recorder karl Kidney disease, GFR = <60. Kidney failure, GFR = <15. The GFR estimate is not adjusted for extreme body surface area or acute process, nor has it been validated for women or ethnic groups other than and . Performed By: #### L VB1 #### Testing performed at [facility] Glucose [Mass/Vol] 92 mg/dL Normal 70-100 [facility] Comment on above: Result Comment: NORMAL <100 mg/dL PREDIABETES 101-126 mg/dL DIABETES 126 mg/dL or higher Performed By: #### L VB1 #### Testing performed at [facility] Potassium [Moles/Vol] 3.9 mmol/L Normal 3.5-5.1 [facility] [place] Comment on above: Performed By: #### L VB1 #### Testing performed at [facility] Protein [Mass/Vol] 7.4 g/dL Normal 6.3-8.2 [facility] Comment on above: Performed By: #### L VB1 #### Testing performed at [facility] Sodium [Moles/Vol] 136 mmol/L Normal 136-145 [facility] Comment on above: Performed By: #### L VB1 #### Testing performed at [facility] Urea nitrogen [Mass/Vol] 14 mg/dL Normal 7-20 [facility] Comment on above: Performed By: #### L VB1 #### Testing performed at [facility] HEMOGLOBIN A1Con 11-17-2022 Glucose [Mass/Vol] 117 mg/dL Normal [facility] Comment on above: Performed By: #### H A1CT #### Testing performed at [address] [address] HbA1c (Bld) [Mass fraction] 5.7 % Normal <6 [facility] Comment on above: Result Comment: NORMAL <5.7% PREDIABETES 5.7-6.4% DIABETES 6.5% OR HIGHER Performed By: #### H A1CT #### Testing performed at [address] [place] [address] IRON PROFILEon 11-17-2022 Iron [Mass/Vol] 60 ug/dL Normal 37-170 [facility] Comment on above: Performed By: #### L VB1 #### Testing performed at [facility] IRON BINDING 342 UG/DL Normal 250-450 [facility] Comment on above: Performed By: #### L VB1 #### Testing performed at [facility] TRANSFERRIN SATURATION,CALCULATED 18 % Normal [facility] Comment on above: Performed By: #### L VB1 #### Testing performed at [facility] LIPID PROFILEon 11-17-2022 Cholesterol [Mass/Vol] 174 mg/dL Normal 100-199 [facility] Comment on above: Performed By: #### L VB1 #### Testing performed at [facility] Cholesterol in HDL [Mass/Vol] 43 mg/dL Normal 40-60 [facility] Comment on above: Performed By: #### L VB1 #### Testing performed at [facility] Cholesterol in LDL [Mass/Vol] 99 mg/dL Normal 0-100 [facility] Comment on above: Performed By: #### L VB1 #### Testing performed at [facility] Cholesterol in VLDL [Mass/Vol] 32 mg/dL High 5.0-25.0 [facility] Comment on above: Performed By: #### L VB1 #### Testing performed at [facility] Cholesterol.total/Desirae sterol in HDL [Mass ratio] 4.05 {ratio} Normal [facility] Comment on above: Result Comment: RISK TOTAL/HDL RATIO MEN WOMEN 1/2 AVERAGE 3.43 3.27 AVERAGE 4.97 4.44 2X AVERAGE 9.55 7.05 3X AVERAGE 23.99 11.04 Performed By: #### L VB1 #### Testing performed at [facility] Triglyceride [Mass/Vol] 160 mg/dL High <150 [facility] Comment on above: Performed By: #### L VB1 #### Testing performed at [facility] NICOTINE SCREEN, URINEon COTININE Negative Normal NEGATIVE [facility] Comment on above: Result Comment: Cut- off concentration of 200 ng/mL Performed By: #### A KARL, RTOX, UHCGT ####[place] [address] RAPID TOX SCREEN,URINEon AMPHETAMINE Negative Normal NEGATIVE [facility] Comment on above: Result Comment: <500 ng/ml CUTOFF Performed By: #### A KARL, RTOX, UHCGT ####[place] [address] BARBITURATES Negative Normal NEGATIVE [facility] Comment on above: Result Comment: <200 ng/ml CUTOFF Performed By: #### A KARL, RTOX, UHCGT ####[place] [address] BENZODIAZEPINES Negative Normal NEGATIVE [facility] Comment on above: Result Comment: <150 ng/ml CUTOFF Performed By: #### A KARL, RTOX, UHCGT ####Testing performed at [address] [address] BUPRENORPHINE Negative Normal NEGATIVE [facility] Comment on above: Result Comment: <10 ng/ml CUTOFF Performed By: #### A KARL, RTOX, UHCGT ####Testing performed at [address] [address] CANNABINOIDS Negative Normal NEGATIVE [facility] Comment on above: Result Comment: <50 ng/ml CUTOFF Performed By: #### A KARL, RTOX, UHCGT ####Testing performed at [place] [id number] COCAINE Negative Normal NEGATIVE [facility] Comment on above: Result Comment: <150 ng/ml CUTOFF Performed By: #### A KARL, RTOX, UHCGT ####Testing performed at [place] [id number] FENTANYL Negative Normal NEGATIVE [facility] Comment on above: Result Comment: 20 n g/mL CUTOFF *Unconfirmed Screening Result* Unconfirmed screening results are to be used only for medical treatment purposes. This test has not been approved by the FDA. Performed By: #### A KARL, RTOX, UHCGT ####[place] [address] METHADONE Negative Normal NEGATIVE [facility] Comment on above: Result Comment: <200 ng/ml CUTOFF Performed By: #### A KARL, RTOX, UHCGT ####[place] [address] METHAMPHETAMINE Negative Normal NEGATIVE [facility] Comment on above: Result Comment: <500 ng/ml CUTOFF Performed By: #### A KARL, RTOX, UHCGT ####Testing performed at [address] [address] OPIATES Negative Normal NEGATIVE [facility] Comment on above: Result Comment: <100 ng/ml CUTOFF Performed By: #### A KARL, RTOX, UHCGT ####Testing performed at [address] [address] OXYCODONE Negative Normal NEGATIVE [facility] Comment on above: Result Comment: <100 ng/ml CUTOFF Performed By: #### A KARL, RTOX, UHCGT ####Testing performed at [address] [address] PHENCYCLIDINE Negative Normal NEGATIVE [facility] Comment on above: Result Comment: <25 ng/ml CUTOFF Performed By: #### A KARL, RTOX, UHCGT ####Testing performed at [address] [address] PROPOXYPHENE Negative Normal NEGATIVE [facility] Comment on above: Result Comment: <300 ng/ml CUTOFF Performed By: #### A KARL, RTOX, UHCGT ####Testing performed at [address] [address] TRICYCLIC ANTIDEPRESSANTS Negative Normal NEGATIVE [facility] Comment on above: Result Comment: <300 ng/ml CUTOFF Performed By: #### A KARL, RTOX, UHCGT ####Testing performed at [address] [address] TSHon 11-17-2022 TSH 0.935 uIU/ML Normal 0.45-5.33 [facility] Comment on above: Performed By: #### A KARL, RTOX, UHCGT #### Testing performed at [address] [address] URINE HCG QUALon 11-17-2022 Beta HCG ( test) Ql (U) Negative Normal NEGATIVE [facility] Comment on above: Performed By: #### A KARL, RTOX, UHCGT ####Testing performed at [address] [address] XR CHEST PA AND LATERALon XR CHEST PA AND LATERAL EXAM: XR CHEST P A AND LATERAL HISTORY: PRE OP COMPARISON: 12/01/2020 TECHNIQUE: PA and lateral views of the chest. FINDINGS: The cardiomediastinal silhouette is normal. No focal consolidation is identified. There is no pneumothorax. No pleural effusion is noted. The osseous structures are intact. IMPRESSION: No acute cardiopulmonary process. Normal [facility] XR Chest PA and Lateralon IMPRESSION: No acute cardiopulmonary process. RADIOLOGY EXAM: XR CHEST PA AN D LATERAL HISTORY: PRE OP COMPARISON: 12/01/2020 TECHNIQUE: PA and lateral views of the chest. FINDINGS: The cardiomediastinal silhouette is normal. No focal consolidation is identified. There is no pneumothorax. No pleural effusion is noted. The osseous structures are intact. RADIOLOGY Travis Huerta MD - 11/17/2022 EXAM: XR CHEST PA AND LATERAL HISTORY: PRE OP COMPARISON: 12/01/2020 TECHNIQUE: PA and lateral views of the chest. FINDINGS: The cardiomediastinal silhouette is normal. No focal consolidation is identified. There is no pneumothorax. No pleural effusion is noted. The osseous structures are intact. IMPRESSION IMPRESSION: No acute cardiopulmonary process. [facility] Radiology Study observation (narrative) [facility] XR Chest PA and LateralOrder ed By: Travis Huerta on 11-17-2022 [facility] Work Phone: HEPATITIS B CORE AB-TOTALon 11-12-2022 HEP. B CORE AB-TOTAL Non-Reactive Normal NONREACTIVE [facility] Comment on above: Result Comment: Resu lts from patients taking biotin supplements or receiving high-dose biotin therapy should be interpreted with caution due to possible interference with this test. Providers may contact their local laboratory for further information. Performed By: #### H BCRT #### [facility] [address] [place] [address] HEPATITIS B CORE AB-TOTALon 11-11-2022 Lab Specimen Source Normal [facility] Comment on above: Performed By: #### H BCRT #### [facility] [address] [place] [address] Hepatitis B Core Antibody, T otalon 11-11-2022 Hepatitis B Core Antibody, Total Non-Reactive See Below [facility] [address] Work Phone: Comment on above: SOURCE: Reference Ra nge: NONREACTIVE Results from patients taking biotin supplements or receiving high-dose biotin therapy should be interpreted with caution due to possible interference with this test. Providers may contact their local laboratory for further information. No Panel Informationon 10-03 0.9% [facility] [address] Work Phone: Class II Risk [facility] [address] Work Phone: 1 {Points} [facility] Work Phone: Office Visit (Cardiology)on 10-03-2022 Follow-up visit Diagnoses/Problems Assessed Pre-operative clearance (V72.84) (Z01.818) Inappropriate sinus tachycardia (427.89) (R00.0) Orders Pre-operative clearance IO EKG Electrocardiogram- 12 Lead; Status:Complete; Done: 03Oct2022 History of Present Illness Aye Weir is a 27-year-old female with a h/o anemia, inappropriate sinus tachycardia, anxiety, and obesity presenting for pre-operative surgical clearance[facility]: -Patient currently can walk on level ground without any chest discomfort or shortness of breath. Denies any orthopnea/PND/lower extremity edema. Denies any dizziness or lightheadedness Can climb 2 flights of stairs without any issues. No prior history of CVA, kidney disease, diabetes requiring insulin, heart failure, ischemic heart disease. Cardiac hx includes: Inappropriate sinus tachycardia -On metoprolol 50 mg daily; no complaints Active Problems Problems Anemia (285.9) (D64.9) Anxiety (300.00) (F41.9) BMI 50.0-59.9, adult (V85.43) (Z68.43) Bright red rectal bleeding (569.3) (K62.5) COVID-19 virus infection (079.89) (U07.1) Diarrhea (787.91) (R19.7) Exertional shortness of breath (786.05) (R06.02) Ganglion cyst (727.43) (M67.40) Inappropriate sinus tachycardia (427.89) (R00.0) Increased risk of breast cancer (V15.89) (Z91.89) Tyrer-Cuzick score 29.2% on Myriad test 08/02/18. Genetics negative though Low back pain (724.2) (M54.50) Melena (578.1) (K92.1) Morbid obesity (278.01) (E66.01) Morbid obesity with BMI of 50.0-59.9, adult (278.01,V85.43) (E66.01,Z68.43) exam (V24.2) (Z39.2) Pre-operative clearance (V72.84) (Z01.818) Screening for breast cancer (V76.10) (Z12.39) Screening for cervical cancer (V76.2) (Z12.4) Screening for STD (sexually transmitted disease) (V74.5) (Z11.3) Tenesmus (787.99) (R19.8) Thoracic back pain (724.1) (M54.6) Women's annual routine gynecological examination (V72.31) (Z01.419) Surgical History Problems History of Colonoscopy History of Hysteroscopy DANDC History of Uterine polypectomy History of [place] tooth extraction Resolved Date: 02 Aug 2019 History of Wrist surgery TENDON REPAIR Past Medical History Problems History of spontaneous (V13.29) (Z87.59) 09/2016 History of Menarche (V21.8) ONSET AGE 11 History of Normal vaginal delivery (650) (O80) 06/06/2020; 39 WEEKS; MALE; 9LBS 5OZ 05/05/2019; 39 WEEKS; MALE; 8LBS 1OZ History of Vaginal Pap smear (V76.47) (Z12.72) 12/05/2019-NIL 02/24/2017-NEGATIVE Current Meds Medication NameInstruction buPROPion HCl ER (XL) 300 MG Oral Tablet Extended Release 24 HourTAKE 1 TABLET DAILY. Metoprolol Succinate ER 50 MG Oral Tablet Extended Release 24 HourTake 1 tablet daily Omeprazole 40 MG Oral Capsule Delayed ReleaseTAKE 1 CAPSULE Daily tiZANidine HCl - 4 MG Oral CapsuleTAKE 1 CAPSULE Daily Allergies Medication morphine Recorded By: Zee Branch; 12/05/2021 1:41:38 PM Family History Mother No pertinent family history mom had breast cancer in hre 20s, multiple maternal aunts Father Family history of diabetes mellitus (V18.0) (Z83.3) Family history of hypertension (V17.49) (Z82.49) Grandparent Family history of malignant neoplasm of breast (V16.3) (Z80.3) Family history of pancreatic cancer (V16.0) (Z80.0) Aunt Family history of malignant neoplasm of breast (V16.3) (Z80.3) Social History Problems Daily caffeine consumption Never smoker No alcohol use No illicit drug use Sexually active Review of Systems A 10-point system review was completed and was negative except as noted in the HPI. Vitals Vital Signs Recorded: [id number] 03:16PM Heart Xldo669 [id number] Eyzhajjey58 Height5 ft 6 in Daqkjo878 lb 7 oz BMI Yiixkshhiv14.24 kg/m2 BSA Calculated2.43 Tobacco Useb) No Falls Screening (Age 18+)a) No falls within the last year O2 [id number] Physical Exam General: awake, alert and oriented. No acute distress. Well developed, hydrated and nourished. Appears stated age. Skin: Skin is warm, dry and intact without rashes or lesions. Appropriate color for ethnicity. Nail beds pink with no cyanosis or clubbing HEENT: normocephalic, atraumatic; conjunctivae are clear without exudates or hemorrhage. Sclera is non-icteric. Eyelids are normal in appearance without swelling or lesions. Hearing intact. Nares are patent bilaterally. Moist mucous membranes. Cardiovascular: heart rate and rhythm are normal. No murmurs, gallops, or rubs are auscultated. S1 and S2 are heard and are of normal intensity. No JVD, no carotid bruits Respiratory: bilateral lung sounds clear to auscultations without rales, rhonchi, or wheezes. No accessory muscle use or stridor Gastrointestinal: non-distended, non-tender Genitourinary: exam deferred Musculoskeletal: ROM intact, no deformities Extremities: pulses palpable bilaterally; no swelling or erythema Neurol (more content not included)... Normal [employer] Tobacco Screening.on 023 Fall risk assessment a) No falls within the last year [facility] Work Phone: Tobacco use status [facility] b) No M [facility] [employer] [address] [employer] Work Phone: CBC AND DIFFERENTIALon 09-29 % AUTOMATED IMMATURE GRAN 0.3 % Normal 0.0 - 0.9 [facility] Comment on above: Result Comment: Jennifer ture Granulocyte Count (IG) includes promyelocytes, myelocytes and metamyelocytes but does not include bands. Percent differential counts (%) should be interpreted in the context of the absolute cell counts (cells/L). Performed By: #### C BCDF #### [place] [id number] Basophils (Bld) [#/Vol] 0.04 10*3/uL Normal 0.00 - 0.1 0 [facility] Comment on above: Performed By: #### C BCDF #### [place] [id number] Eosinophils (Bld) [#/Vol] 0.13 10*3/uL Normal 0.00 - 0.70 [facility] Comment on above: Performed By: #### C BCDF #### [place] [id number] Eosinophils/100 WBC (Bld) 1.3 % Normal 0.0 - 6.0 [facility] Comment on above: Performed By: #### C BCDF #### [place] [address] Lymphocytes (Bld) [#/Vol] 2.89 10*3/uL Normal 1.20 - 4.80 [facility] Comment on above: Performed By: #### C BCDF #### [place] [address] Monocytes (Bld) [#/Vol] 0.71 10*3/uL Normal 0.10 - 1.0 0 [facility] Comment on above: Performed By: #### C BCDF #### [place] [id number] Neutrophils (Bld) [#/Vol] 6.17 10*3/uL Normal 1.20 - 7.70 [facility] Comment on above: Result Comment: Perc ent differential counts (%) should be interpreted in the context of the absolute cell counts (cells/L). Performed By: #### C BCDF #### [place] [address] RBC 4.44 x10E12/L Normal 4.00 - 5.20 [facility] Comment on above: Performed By: #### C BCDF #### [place] [address] Lab Specimen Source Normal [facility] Comment on above: Performed By: #### C BCDF #### [place] [address] Performed By: #### V TB12 #### [place] [address] Performed By: #### T HYDS #### [place] [address] Performed By: #### C MP #### [place] [address] COMPREHENSIVE PANELon 2022 Albumin [Mass/Vol] 4.1 g/dL Normal 3.4 - 5.0 [facility] Comment on above: Performed By: #### C MP #### [place] [address] ALP [Catalytic activity/Vol] 86 U/L Normal 33 - 110 [place] [address] [address] Work Phone: Comment on above: Performed By: #### C MP #### [place] [address] ALT [Catalytic activity/Vol] 18 U/L Normal 7 - 45 [facility] Comment on above: Result Comment: Jodi ents treated with Sulfasalazine may generate falsely decreased results for ALT. Performed By: #### C MP #### [place] [address] Anion gap [Moles/Vol] 12 mmol/L Normal 10 - 20 [facility] [address] Work Phone: Comment on above: Performed By: #### C MP #### [place] [address] AST [Catalytic activity/Vol] 16 U/L Normal 9 - 39 [facility] Comment on above: Performed By: #### C MP #### [place] [address] Bilirubin [Mass/Vol] 0.2 mg/dL Normal 0.0 - 1.2 [facility] [address] Work Phone: Comment on above: Performed By: #### C MP #### [address] [address] Calcium [Mass/Vol] 8.9 mg/dL Normal 8.6 - 10.3 [facility] -[place] [address] [address] Work Phone: Comment on above: Performed By: #### C MP #### [address] [address] Chloride [Moles/Vol] 104 mmol/L Normal 98 - 107 [facility] ardi[facility] -[place] [address] [address] Work Phone: Comment on above: Performed By: #### C MP #### [address] [address] Creatinine [Mass/Vol] 0.83 mg/dL Normal 0.50 - 1.05 [facility] -[facility]iolo [place] [address] [address] Work Phone: Comment on above: Reference Range: 0.5 0 - 1.05 Performed By: #### C MP #### [address] [address] eGFR FEMALE >90 Normal >90 [facility] Comment on above: Result Comment: CALC ULATIONS OF ESTIMATED GFR ARE PERFORMED USING THE 2020 CKD-EPI STUDY REFIT EQUATION WITHOUT THE RACE VARIABLE FOR THE IDMS-TRACEABLE CREATININE METHODS. https://jasn.asnjournals.org/content//ASN.2020 724652 Performed By: #### C MP #### [address] [address] Glucose [Mass/Vol] 74 mg/dL Normal 74 - 99 [facility]-[place] [address] [address] Work Phone: Comment on above: SOURCE: Performed By: #### C MP #### [address] [address] HCO3 (Bld) [Moles/Vol] 27 mmol/L Normal 21 - 32 [facility] Comment on above: Performed By: #### C MP #### [address] [address] Potassium [Moles/Vol] 3.9 mmol/L Normal 3.5 - 5.3 [facility] [address] Work Phone: Comment on above: Performed By: #### C MP #### [address] [address] Protein [Mass/Vol] 7.1 g/dL Normal 6.4 - 8.2 [facility] [address] Work Phone: Comment on above: Performed By: #### C MP #### [address] [address] Sodium [Moles/Vol] 139 mmol/L Normal 136 - 145 [facility] [address] Work Phone: Comment on above: Performed By: #### C MP #### [address] [address] Urea nitrogen [Mass/Vol] 18 mg/dL Normal 6 - 23 [facility] [address] Work Phone: Comment on above: Performed By: #### C MP #### [address] [address] Complete Blood Count + Diffe rentialon 09-29-2022 Basophils/100 WBC (Bld) 0.4 % Normal 0.0 - 2.0 [facility] [address] Work Phone: Comment on above: Performed By: #### C BCDF #### [address] [address] Erythrocyte distribution width (RBC) [Ratio] 13.6 % Normal 11.5 - 14.5 [facility] [address] Work Phone: Comment on above: Reference Range: 11. 5 - 14.5 Performed By: #### C BCDF #### [address] [address] [address] Hematocrit (Bld) [Volume fraction] 38.7 % Normal 36.0 - 46.0 [facility] [address] Work Phone: Comment on above: Reference Range: 36. 0 - 46.0 Performed By: #### C BCDF #### [address] [address] Hemoglobin (Bld) [Mass/Vol] 12.2 g/dL Normal 12.0 - 16.0 [facility] [address] Work Phone: Comment on above: Reference Range: 12. 0 - 16.0 Performed By: #### C BCDF #### [address] [address] Lymphocytes/100 WBC (Bld) 29.0 % Normal 13.0 - 44.0 MP[facility]iol[facility] gy-[address] Work Phone: Comment on above: Reference Range: 13. 0 - 44.0 Performed By: #### C BCDF #### [address] [address] MCHC (RBC) [Mass/Vol] 31.5 g/dL Low 32.0 - 36.0 MP -Cardiolo gy-[address] Work Phone: Comment on above: Reference Range: 32. 0 - 36.0 Performed By: #### C BCDF #### [address] [address] MCV (RBC) [Entitic vol] 87 fL Normal 80 - 100 M P-Cardiolo gy-[address] Work Phone: Comment on above: Performed By: #### C BCDF #### [address] [address] Monocytes/100 WBC (Bld) 7.1 % Normal 2.0 - 10.0 M P[facility]iol[facility] [address] Work Phone: Comment on above: Performed By: #### C BCDF #### [address] [address] Neutrophils/100 WBC (Bld) 61.9 % Normal 40.0 - 80.0 [facility] [address] Work Phone: Comment on above: Reference Range: 40. 0 - 80.0 Performed By: #### C BCDF #### [address] [address] Platelets (Bld) [#/Vol] 364 10*3/uL Normal 150 - 450 [facility] [address] Work Phone: Comment on above: Performed By: #### C BCDF #### [address] [address] WBC (Bld) [#/Vol] 10.0 10*3/uL Normal 4.4 - 11.3 MP-Ca rdiolo gy-[address] Work Phone: Comment on above: SOURCE: Performed By: #### C BCDF #### [address] [address] RBC (Bld) [#/Vol] 4.44 {x10E12/L} See Below [facility] [address] Work Phone: Comment on above: Reference Range: 4.0 0 - 5.20 Complete Blood Count + Differential 0.04 {x10E9/L} See Below [facility] [address] Work Phone: Comment on above: Reference Range: 0.0 0 - 0.10 Complete Blood Count + Differential 0.13 {x10E9/L} See Below [facility] [address] Work Phone: Comment on above: Reference Range: 0.0 0 - 0.70 Complete Blood Count + Differential 0.71 {x10E9/L} See Below [facility] [address] Work Phone: Comment on above: Reference Range: 0.1 0 - 1.00 Complete Blood Count + Differential 2.89 {x10E9/L} See Below [facility] Work Phone: Comment on above: Reference Range: 1.2 0 - 4.80 Complete Blood Count + Differential 6.17 {x10E9/L} See Below [facility] Work Phone: Comment on above: Reference Range: 1.2 0 - 7.70 Percent differential counts (%) should be interpreted in the context of the absolute cell counts (cells/L). Complete Blood Count + Differential 1.3 % 0.0 - 6.[address] Work Phone: Complete Blood Count + Differential 0.3 % 0.0 - 0.[address] Work Phone: Comment on above: Immature Granulocyte Count (IG) includes promyelocytes, myelocytes and metamyelocytes but does not include bands. Percent differential counts (%) should be interpreted in the context of the absolute cell counts (cells/L). Hemoglobin A1Con 09-29-2022 Glucose [Mass/Vol] 114 mg/dL Normal [facility] [address] Work Phone: Comment on above: Performed By: #### H BA1E #### [place] [address] HbA1c (Bld) [Mass fraction] 5.6 % Normal [address] Work Phone: Comment on above: Diagnosis of Diabete s-Adults Non-Diabetic: < or = 5.6% Increased risk for developing diabetes: 5.7-6.4% Diagnostic of diabetes: > or = 6.5%. Monitoring of Diabetes Age (y) Therapeutic Goal (%) Adults: >18 <7.0 Pediatrics: 13-18 <7.5 7-12 <8.0 0- 6 7.5-8.5 [place] [employer]. Diabetes Care 33(S1), Jun 2009. Result Comment: Diag nosis of Diabetes-Adults Non-Diabetic: < or = 5.6% Increased risk for developing diabetes: 5.7-6.4% Diagnostic of diabetes: > or = 6.5% . Monitoring of Diabetes Age (y) Therapeutic Goal (%) Adults: >18 <7.0 Pediatrics: 13-18 <7.5 7-12 <8.0 0- 6 7.5-8.5 [place] [employer]. Diabetes Care 33(S1), Jun 2009. Performed By: #### H BA1E #### [facility] [address] [id number] Laboratory - Chemistry and C hemistry - challengeon 09-29-2022 Albumin BCP dye [Mass/Vol] 4.1 g/dL 3.4 - 5.0 [facility] [address] Work Phone: ALT With P-5'-P [Catalytic activity/Vol] 18 U/L 7 - 45 [facility] [address] Work Phone: Comment on above: Patients treated wit h Sulfasalazine may generate falsely decreased results for ALT. AST With P-5'-P [Catalytic activity/Vol] 16 U/L 9 - 39 [facility] [address] Work Phone: CO2 [Moles/Vol] 27 mmol/L 21 - 32 MP[facility]Cardio lo gy[facility] [address] Work Phone: No Panel Informationon 09-29 >90 >90 [facility] [address] Work Phone: Comment on above: CALCULATIONS OF SAURABH MATED GFR ARE PERFORMED USING THE 2020 CKD-EPI STUDY REFIT EQUATION WITHOUT THE RACE VARIABLE FOR THE IDMS-TRACEABLE CREATININE METHODS.https://jasn.asnjournals.org/content// ASN.9529914362 TSH WITH REFLEX TO FREE T4 I F ABNORMALon 09-29-2022 TSH Qn 1.28 m[IU]/L Normal 0.44 - 3.98 [facility] [address] Work Phone: Comment on above: SOURCE: Reference Ra nge: 0.44 - 3.98 TSH testing is performed using different testing methodology at [facility] than at [facility]. Direct result comparisons should only be made within the same method. Result Comment: TSH testing is performed using different testing methodology at [facility] than at [facility]. Direct result comparisons should only be made within the same method. Performed By: #### T HYDS #### [address] [address] Vitamin B12, Serumon 023 Cobalamin (Vitamin B12) [Mass/Vol] 411 pg/mL Normal 211 - 911 -[facility] [address] Work Phone: Comment on above: SOURCE: Performed By: #### V TB12 #### [address] [address] SLEEP STUDY (SCANNED)Ordered By: Aishwarya Man on 02-27-2022 [facility] SLEEP STUDY PSG (SCANNED)Ord ered By: Aishwarya Man on 01-27-2022 Radiology Study observation (narrative) [facility] SLEEP STUDY PSG (SCANNED)Ord ered By: Aishwarya Man on 01-24-2022 [facility] MR WRIST RIGHT WITHOUT CONTR Fern 01-14-2022 MR WRIST RIGHT WITHOUT CONTRAST EXAMINATION: MRWRSRWO MR WRIST RIGHT WITHOUT CONTRAST TECHNIQUE: Multiplanar multisequence MRI of the right wrist was performed without intravenous contrast. COMPARISON: Radiograph December 30, 2021. HISTORY: Dx: M67.40 (Ganglion cyst) Ganglion cyst Injury/Trauma or Illness?:Illness/Other How long have you had these symptoms (acute/chronic)?:Acute Reason for exam?:ganglion cyst, area marked w/ fiducial Type of Exam?:Subsequent/Follow- up Additional signs and symptoms?:no M67.40 Ganglion cyst Injury/Trauma or Illness?:Illness/Other How long have you had these symptoms (acute/chronic)?:Acute FINDINGS: Bones: There is no evidence of acute fracture, osteonecrosis, or suspicious marrow lesion. Joints: The distal radioulnar joint is intact. The radiocarpal joint is intact. The intercarpal and carpal-carpal joints are intact. Ulnar: There is negative ulnar variance. Ligaments: The volar and dorsal extrinsic ligaments of the wrist are intact. The scapholunate ligament is intact. The lunotriquetral ligament is intact. TFCC: The articular disc of the triangular fibrocartilage complex (TFCC) is intact. The peripheral radial attachments of the TFCC are intact. The ulnar peripheral attachments of the TFCC are intact. Tendons: The extensor tendons are intact. Mild tenosynovitis of the 2nd, 3rd, and 4th extensor compartment. The flexor tendons are intact. No flexor tenosynovitis. Carpal tunnel and Guyon's canal: The contents of the carpal tunnel are intact. The contents of Guyon's canal are intact. A multi septated T2 hyperintense T1 isointense lesion consistent with ganglion cyst is noted along the dorsal aspect of the wrist originating at the articulation between the lunate and capitate measuring 1.9 x 0.6 x 1.1 cm transverse by AP by craniocaudal. IMPRESSION: Ganglion cyst of the dorsal wrist measuring up to 1.9 cm likely originating at the level of the lunocapitate articulation. There is associated tenosynovitis of the 2nd, 3rd, and 4th extensor compartments. Workstation ID: [id number] Dictated by: MARIS GARCIA on ThuJan 15, 2022 10:32:58 AM EDT Transcribed by: MARIS GARCIA on ThuJan 15, 2022 10:32:58 AM EDT Finalized by: MARIS GARCIA on ThuJan 15, 2022 10:32:58 AM EDT [facility] Comment on above: Order Comment: Injur y/Trauma or Illness?:Illness/Other How long have you had these symptoms (acute/chronic)?:Acute Reason for exam?:ganglion cyst, area marked w/ fiducial Type of Exam?:Subsequent/Follow-up Additional signs and symptoms?:no XR WRIST RIGHT 3+ VIEWS (STA NDARD)on 12-30-2021 XR WRIST RIGHT 3+ VIEWS (STANDARD) EXAMINATION: XR WRIST RIGHT 3+ VIEWS (STANDARD) 12/30/2021 3:00 pm HISTORY: ORDERING SYSTEM PROVIDED HISTORY: Pain, TECHNOLOGIST PROVIDED HISTORY: Illness/Other Reason for exam: right wrist pain, no injury Cancer History: u Surgery, RadiationHistory: u Encounter Type: Initial Additional signs and symptoms: pt. has hard palpable cyst posterior aspect or right wrist. ORDERING SYSTEM PROVIDED DIAGNOSIS CODES: R52 Pain COMPARISON: None FINDINGS: No acute displaced fracture or dislocation identified. No bony erosive or resorptive changes identified. Soft tissues are unremarkable. IMPRESSION: No acute osseous abnormality. Workstation ID: [id number] Dictated by: VIKTORIYA MALCOLM on ThuDec 31, 2021 2:58:20 PM EDT Transcribed by: VIKTORIYA MALCOLM on ThuDec 31, 2021 2:58:20 PM EDT Finalized by: VIKTORIYA MALCOLM on ThuDec 31, 2021 2:58:20 PM EDT Normal [facility] Comment on above: Order Comment: Injur y/Trauma or Illness?:Illness/Other How long have you had these symptoms (acute/chronic)?:Chronic Reason for exam?:right wrist pain, no injury History of cancer?:u Surgeries, chemotherapy, or radiation?:u Type of Exam?:Initial Additional signs and symptoms?:pt. has hard palpable cyst posterior aspect or right wrist. NM Biliary with EF w/wo CCKo n 12-18-2021 NM Biliary with EF w/wo CCK Normal [facility] Work Phone: Office Visit (Cardiology)on 12-05-2021 Follow-up visit Orders Pre-operative clearance IO EKG Electrocardiogram- 12 Lead; Status:Complete; Done: [id number] Chief Complaint Preoperative evaluation History of Present [id number] female who has been previously diagnosed with inappropriate sinus tachycardia here for follow-up: Problem #1 inappropriate sinus tachycardia -On metoprolol 50 mg daily Problem #2 preoperative evaluation -Patient currently can walk on level ground without any chest discomfort or shortness of breath. Denies any orthopnea/PND/lower extremity edema. Denies any dizziness or lightheadedness Can climb 2 flights of stairs without any issues. No prior history of CVA, kidney disease, diabetes requiring insulin, heart failure, ischemic heart disease. Previous cardiac work-up: Echocardiogram 04/02/2020: Normal biventricular function Active Problems Problems Anemia (285.9) (D64.9) Anxiety (300.00) (F41.9) BMI 50.0-59.9, adult (V85.43) (Z68.43) Bright red rectal bleeding (569.3) (K62.5) COVID-19 virus infection (079.89) (U07.1) Diarrhea (787.91) (R19.7) Exertional shortness of breath (786.05) (R06.02) Ganglion cyst (727.43) (M67.40) Inappropriate sinus tachycardia (427.89) (R00.0) Increased risk of breast cancer (V15.89) (Z91.89) Tyrer-Cuzick score 29.2% on Myriad test 08/02/18. Genetics negative though Low back pain (724.2) (M54.50) Melena (578.1) (K92.1) Morbid obesity (278.01) (E66.01) Morbid obesity with BMI of 50.0-59.9, adult (278.01,V85.43) (E66.01,Z68.43) exam (V24.2) (Z39.2) Screening for breast cancer (V76.10) (Z12.39) Screening for cervical cancer (V76.2) (Z12.4) Screening for STD (sexually transmitted disease) (V74.5) (Z11.3) Tenesmus (787.99) (R19.8) Thoracic back pain (724.1) (M54.6) Women's annual routine gynecological examination (V72.31) (Z01.419) Surgical History Problems History of Colonoscopy History of Hysteroscopy DANDC History of Uterine polypectomy History of Longbranch tooth extraction Resolved Date: 02 Aug 2019 History of Wrist surgery TENDON REPAIR Past Medical History Problems History of spontaneous (V13.29) (Z87.59) 09/2016 History of Menarche (V21.8) ONSET AGE 11 History of Normal vaginal delivery (650) (O80) 06/06/2020; 39 WEEKS; MALE; 9LBS 5OZ 05/05/2019; 39 WEEKS; MALE; 8LBS 1OZ History of Vaginal Pap smear (V76.47) (Z12.72) 12/05/2019-NIL 02/24/2017-NEGATIVE Current Meds Medication NameInstruction buPROPion HCl ER (XL) 300 MG Oral Tablet Extended Release 24 HourTAKE 1 TABLET DAILY. Metoprolol Succinate ER 50 MG Oral Tablet Extended Release 24 HourTake 1 tablet daily Omeprazole 40 MG Oral Capsule Delayed ReleaseTAKE 1 CAPSULE Daily tiZANidine HCl - 4 MG Oral Tablet Allergies Medication morphine Recorded By: Zee Branch; 12/05/2021 1:41:38 PM Family History Mother No pertinent family history mom had breast cancer in hre 20s, multiple maternal aunts Father Family history of diabetes mellitus (V18.0) (Z83.3) Family history of hypertension (V17.49) (Z82.49) Grandparent Family history of malignant neoplasm of breast (V16.3) (Z80.3) Family history of pancreatic cancer (V16.0) (Z80.0) Aunt Family history of malignant neoplasm of breast (V16.3) (Z80.3) Social History Problems Daily caffeine consumption Never smoker No alcohol use No illicit drug use Sexually active Review of Systems Constitutional: Denies any fever or chills Eyes: Denies any eye pain or blurry vision ENT: Denies any ear pain or hearing loss Cardiovascular: The heart rate is not slow, the heart rate is not fast Respiratory: Denies any asthma/wheezing Gastrointestinal: Denies any joanne colored stools or fatty food intolerance Genitourinary: Denies any blood in the urine or pelvic pain Musculoskeletal: Denies any swelling in the joints or difficulty walking Skin: Denies any skin lumps or skin lesions Neurological: Denies any dizziness/tingling Vitals Vital Signs Recorded: [id number] 01:42PM Heart Rate71 Kmjhxitm854 Woijhcdfo09 Height5 ft 6 in Ctrwen313 lb BMI Awnokwwmwk43.81 kg/m2 BSA Calculated2.45 Tobacco Useb) No Falls Screening (Age 18+)a) No falls within the last year O2 Ugtbprlsvp34 Physical Exam General: AANDOx3 HEENT: NC/AT; EOMI; PERRLA, external ear is normal Neck: supple; no JVD Chest: CTAB; no wheezing CVS: S1S2 normal, no murmurs Abdomen: Soft, NT/ND, no organomegaly Extremities: no clubbing/cyanosis/edema Neuro: Grossly intact Results/Data [id number] 02:87IAvo-AZPGXW-FjddMarkos Contreras [Mar 21, 2020 11:41AM AMA, FrontDesk] AMA Intake Activity Log Entry by Angelique Richter ([email or web address]) on 03/21/2020 11:36 AM Status Change : Confirmed - [facility] Module [Mar 21, 2020 11:41AM AMA, FrontDesk] AMA Intake updated by Angelique Richter ([email or web address]) on 03/21/2020 11:36 AM New Recipient: CollinMarkos New Appointment Date: 04/02/2020 2:00 PM [Mar 21, 2020 11:41AM AMA, FrontDesk] AMA Intake Activity (more content not included)... [facility] Tobacco Screening.on Fall risk assessment a) No falls within the last year [facility] [employer] [employer] Work Phone: Tobacco use status CPHS b) No M -[address] Work Phone: Radiologyon 12-04-2021 US Gallbladder Normal [facility] Work Phone: CLOST DIFF. TOXIN, PCRon C. difficile toxin genes TIFFANIE+probe Ql (Stl) Not detected See Below [facility] Work Phone: Comment on above: Reference Range: Not Detected This assay detects the presence of the tcdB (toxin B) gene via DNA amplification, and results should be interpreted in the context of the patients history and clinical findings. This test cannot be performed on formed stools or used as a test of cure, and should not be performed more than once per 7 days. STOOL PATHOGEN PCR PANELon 0 11-29-2021 Campylobacter sp DNA.diarrheagenic TIFFANIE+probe Ql (Stl) Not detected See Below [facility] Work Phone: Comment on above: Reference Range: NOT DETECTED E. coli stx1 gene TIFFANIE+probe Ql (Unsp spec) Not detected See Below [facility] Work Phone: Comment on above: Reference Range: NOT DETECTED E. coli stx2 gene TIFFANIE+probe Ql (Unsp spec) Not detected See Below [facility] Work Phone: Comment on above: Reference Range: NOT DETECTED Norovirus genogroup I and II RNA TIFFANIE+probe Nom (Stl) Not detected See Below [facility] Work Phone: Comment on above: Reference Range: NOT DETECTED Rotavirus RNA TIFFANIE+probe Nom (Stl) Not detected See Below [facility] Work Phone: Comment on above: Reference Range: NOT DETECTED The enteric PCR panel is a panel of sensitive and specific amplified nucleic acid tests indicated as an aid in the diagnosis of specific bacterial and viral agents of gastrointestinal illness, in conjunction with other clinical, laboratory, and epidemiological information. This test is not approved for monitoring these infections. Monitoring is available for Salmonella and Shigella infections-request test Stool PCR Follow-Up (STLPF). Monitoring tests are not available at this time for other enteric agents in this panel. Shigella sp DNA TIFFANIE+probe Ql (Unsp spec) Not detected See Below [facility] Work Phone: Comment on above: Reference Range: NOT DETECTED Vibrio sp DNA TIFFANIE+probe Nom (Unsp spec) Not detected See Below [facility] Work Phone: Comment on above: Reference Range: NOT DETECTED Yersinia sp DNA TIFFANIE+probe Nom (Unsp spec) Not detected See Below [facility] Work Phone: Comment on above: SOURCE: Reference Ra nge: NOT DETECTED STOOL PATHOGEN PCR PANEL Not detected See Below [facility] Work Phone: Comment on above: Reference Range: NOT DETECTED Blood Pressure Cuff Sizeon 0 11-28-2021 Fall risk assessment a) No falls within the last year [facility] Work Phone: Tobacco use status CPHS b) No M [facility] Work Phone: Blood Pressure Cuff Size Adult [facility] Work Phone: CT Abdomen and Pelvis with I V Contraston 11-23-2021 CT Abdomen and Pelvis W contrast IV Normal [facility] Work Phone: Complete Blood Count + Diffe rentialon 11-23-2021 Basophils/100 WBC (Bld) 1.0 % 0.0 - 2.0 M [facility] Work Phone: [phone] Erythrocyte distribution width (RBC) [Ratio] 13.8 % See Below [facility] Work Phone: [phone] Comment on above: Reference Range: 11. 5 - 14.5 Hematocrit (Bld) [Volume fraction] 39.0 % See Below [facility] Work Phone: [phone] Comment on above: Reference Range: 36. 0 - 46.0 Hemoglobin (Bld) [Mass/Vol] 12.9 g/dL See Below [facility] Work Phone: [phone] Comment on above: Reference Range: 12. 0 - 16.0 Lymphocytes/100 WBC (Bld) 28.1 % See Below [facility] Work Phone: [phone] Comment on above: Reference Range: 13. 0 - 44.0 MCHC (RBC) [Mass/Vol] 33.0 g/dL See Below [facility] Work Phone: [phone] Comment on above: Reference Range: 32. 0 - 36.0 MCV (RBC) [Entitic vol] 85 fL 80 - 100 M [facility] Work Phone: [phone] Monocytes/100 WBC (Bld) 8.4 % 2.0 - 10.0 M [facility] Work Phone: [phone] Neutrophils/100 WBC (Bld) 61.1 % See Below [facility] Work Phone: [phone] Comment on above: Reference Range: 40. 0 - 80.0 Platelets (Bld) [#/Vol] 349 10*3/uL 150 - 450 [facility] Work Phone: [phone] RBC (Bld) [#/Vol] 4.61 {x10E12/L} See Below [facility] Work Phone: [phone] Comment on above: Reference Range: 4.0 0 - 5.20 WBC (Bld) [#/Vol] 9.1 10*3/uL 4.4 - 11.3 [facility] Work Phone: Complete Blood Count + Differential 0.10 {x10E9/L} See Below [facility] Work Phone: Comment on above: Reference Range: 0.0 0 - 0.10 Reference Range: 0.0 0 - 0.70 Complete Blood Count + Differential 0.80 {x10E9/L} See Below [facility] Work Phone: Comment on above: Reference Range: 0.1 0 - 1.00 Complete Blood Count + Differential 2.50 {x10E9/L} See Below [facility] Work Phone: Comment on above: Reference Range: 1.2 0 - 4.80 Complete Blood Count + Differential 5.50 {x10E9/L} See Below [facility] Work Phone: Comment on above: Reference Range: 1.2 0 - 7.70 Percent differential counts (%) should be interpreted in the context of the absolute cell counts (cells/L). Complete Blood Count + Differential 1.4 % 0.0 - 6.0 [facility] Work Phone: Complete Blood Count + Differential 0.1 {/100_WBC} [facility] Work Phone: Laboratory - Chemistry and C hemistry - challengeon 11-23-2021 Albumin BCP dye [Mass/Vol] 4.1 g/dL 3.4 - 5.0 [facility] Work Phone: ALP [Catalytic activity/Vol] 75 U/L 33 - 110 [facility] Work Phone: ALT With P-5'-P [Catalytic activity/Vol] 19 U/L 7 - 45 [facility] Work Phone: Comment on above: Patients treated wit h Sulfasalazine may generate falsely decreased results for ALT. Anion gap [Moles/Vol] 10 mmol/L 10 - 20 [facility] Work Phone: [phone] AST With P-5'-P [Catalytic activity/Vol] 15 U/L 9 - 39 [facility] Work Phone: [phone] Bilirubin [Mass/Vol] 0.3 mg/dL 0.0 - 1.2 MP-[facility] Work Phone: [phone] Calcium [Mass/Vol] 8.6 mg/dL 8.6 - 10.3 [facility] Work Phone: [phone] Chloride [Moles/Vol] 108 mmol/L above high threshold 98 - 107 [facility] Work Phone: [phone] CO2 [Moles/Vol] 24 mmol/L 21 - 32 [facility] Work Phone: [phone] Creatinine [Mass/Vol] 0.72 mg/dL See Below [facility] Work Phone: [phone] Comment on above: Reference Range: 0.5 0 - 1.05 Glucose [Mass/Vol] 91 mg/dL 74 - 99 [facility] Work Phone: [phone] Potassium [Moles/Vol] 3.7 mmol/L 3.5 - 5.3 [facility] Work Phone: [phone] Protein [Mass/Vol] 6.9 g/dL 6.4 - 8.2 [facility] Work Phone: [phone] Sodium [Moles/Vol] 138 mmol/L 136 - 145 [facility] Work Phone: [phone] Urea nitrogen [Mass/Vol] 14 mg/dL 6 - 23 [facility] Work Phone: Lactate, Levelon 11-23-2021 Lactate [Moles/Vol] 0.6 mmol/L 0.4 - 2.0 [facility] Work Phone: [phone] Comment on above: Venipuncture immedia tely after or during the administration of Metamizole may lead to falsely low results. Testing should be performed immediately prior to Metamizole dosing. Lipase, Serumon 11-23-2021 Lipase [Catalytic activity/Vol] 25 U/L 9 - 82 [facility] Work Phone: Comment on above: Venipuncture immedia tely after or during the administration of Metamizole may lead to falsely low results. Testing should be performed immediately prior to Metamizole dosing. C-bxxiiq-n-benzoquinone imine (metabolite of Acetaminophen) will generate erroneously low results in samples for patients that have taken toxic doses of acetaminophen. No Panel Informationon 11-23 >90 >90 [facility] Work Phone: Comment on above: CALCULATIONS OF SAURABH MATED GFR ARE PERFORMED USING THE 2020 CKD-EPI STUDY REFIT EQUATION WITHOUT THE RACE VARIABLE FOR THE IDMS-TRACEABLE CREATININE METHODS.https://jasn.asnjournals.org/content/early// ASN.8799071525 URINALYSIS WITH CULTURE IF I NDICATEDon 11-23-2021 Color (U) Yellow See Below [facility] Work Phone: Comment on above: Reference Range: STR AW,YELLOW Glucose Ql (U) Negative NEGATIVE Merged with [facility] Work Phone: Ketones Ql (U) Negative NEGATIVE Merged with [facility] Work Phone: Leukocyte esterase Test strip Ql (U) Negative NEGATIVE Merged with [facility] Work Phone: pH (U) 5.0 [pH] 5.0 - 8.0 [facility] Work Phone: Protein (U) [Mass/Vol] Negative NEGATIVE [facility] Work Phone: RBC (U) [#/Vol] SMALL(1+) Abnormal NEGATIVE Merged with [facility] Work Phone: Specific gravity (U) [Rel density] 1.021 1 See Below Merged with [facility] Work Phone: Comment on above: Reference Range: 1.0 05 - 1.035 URINALYSIS WITH CULTURE IF INDICATED Negative NEGATIVE Merged with [facility] Work Phone: URINALYSIS WITH CULTURE IF INDICATED <2.0 0.0 - 1.9 Merged with [facility] Work Phone: URINALYSIS WITH CULTURE IF INDICATED HAZY CLEAR Merged with [facility] Work Phone: Urinalysis, Microscopicon Urinalysis, Microscopic 1+ M [facility] Work Phone: Urinalysis, Microscopic 2+ M [facility] Work Phone: Urinalysis, Microscopic 6 {/HPF} M [facility] Work Phone: Urinalysis, Microscopic 5 {/HPF} 0-5 [facility] Work Phone: Urinalysis, Microscopic None 0-5 [facility] Work Phone: Urine Teston 11-23 HCG ( test) Ql (U) Negative Negative Merged with [facility] Work Phone: Mamm - Screening Mammogram w / Tomosynthesison 11-01-2021 MG Breast Screening Please click on the link to view the study images Normal [facility] Work Phone: MG Breast Screening Normal Women [facility] [address] Work Phone: LMPon 10-30-2021 Last menstrual period start date [id number] [facility] Work Phone: PHQ-2 VITALSon 10-29-2021 Adult depression screening assessment No [facility] Work Phone: Fall risk assessment a) No falls within the last year Merged with [facility] Work Phone: Tobacco use status CPHS b) No M [facility] Work Phone: PHQ-2 VITALS Adult [facility] Work Phone: Radiologyon 09-20-2021 XR Thoracic spine 3 Views Normal [facility] Work Phone: Blood Pressure Cuff Sizeon 0 09-03-2021 Adult depression screening assessment No [facility] Work Phone: Fall risk assessment a) No falls within the last year [facility] Work Phone: Tobacco use status CPHS b) No M [facility] Work Phone: Blood Pressure Cuff Size Adult [facility] Work Phone: No Panel Informationon 03-11 Normal [facility] Work Phone: Tobacco Screening.on 021 Fall risk assessment a) No falls within the last year [facility] Work Phone: Tobacco use status CPHS b) No M [facility] Work Phone: B12 & FOLATEon 12-28-2020 Cobalamin (Vitamin B12) [Mass/Vol] 555 pg/mL 180 - 914 PG/ML [facility] Folate [Mass/Vol] 19.9 ng/mL >5.9 NG/ML [facility] CBC, EDIF, PLATELETon 2020 ABSOLUTE BASOPHIL COUNT 0.0 10*3/uL 0.0 - 0.2 10*3/uL [facility] Basophils/100 WBC (Bld) 0.4 % 0.0 - 2.0 % [facility] Differential cell count method Nom (Bld) AUTO DIFF % [facility] Eosinophils (Bld) [#/Vol] 0.10 10*3/uL 0.0 - 0.7 10*3/uL [facility] Eosinophils/100 WBC (Bld) 1.6 % 0.0 - 11.0 % [facility] Erythrocyte distribution width (RBC) [Ratio] 13.2 % 11.5 - 14.5 % [facility] Hematocrit (Bld) [Volume fraction] 38.6 % 36.0 - 48.0 % [facility] Hemoglobin (Bld) [Mass/Vol] 12.7 g/dL [facility] Lymphocytes (Bld) [#/Vol] 2.50 10*3/uL 1.2 - 3.4 10*3/uL [facility] Lymphocytes/100 WBC (Bld) 27.6 % 20.0 - 55.0 % [facility] MCH (RBC) [Entitic mass] 28.4 pg 26.0 - 35.0 PG [facility] MCHC (RBC) [Mass/Vol] 33.1 g/dL [facility] MCV (RBC) [Entitic vol] 85.9 fL [facility] Monocytes (Bld) [#/Vol] 0.6 10*3/uL 0.0 - 0.7 10*3/uL [facility] Monocytes/100 WBC (Bld) 6.6 % 0.0 - 10.0 % [facility] Neutrophils (Bld) [#/Vol] 5.8 10*3/uL 1.4 - 6.5 10*3/uL [facility] Neutrophils/100 WBC (Bld) 63.8 % 37.0 - 75.0 % [facility] Platelet mean volume (Bld) [Entitic vol] 7.6 fL [facility] Platelets (Bld) [#/Vol] 348 10*3/uL 130. 0 - 400.0 10*3/uL [facility] RBC (Bld) [#/Vol] 4.49 10*6/uL 4.0 - 5.4 10*6/uL [facility] WBC (Bld) [#/Vol] 9.1 10*3/uL 3.6 - 11.0 10*3/uL [facility] COMPREHENSIVE METABOLIC PANE Best 12-28-2020 Albumin [Mass/Vol] 4.2 G/dl 3.5 - 5.0 G/dl [facility] Albumin/Globulin [Mass ratio] 1.1 {ratio} Low [facility] ALP [Catalytic activity/Vol] 66 U/L [facility] ALT [Catalytic activity/Vol] 25 U/L [facility] AST [Catalytic activity/Vol] 20 U/L [facility] Bilirubin [Mass/Vol] 0.3 mg/dL [facility] Calcium [Mass/Vol] 9.4 mg/dL [facility] Chloride [Moles/Vol] 105 mmol/L [facility] CO2 [Moles/Vol] 25 mmol/L [facility] Creatinine [Mass/Vol] 0.71 mg/dL [facility] GFR COMMENT Average GFR for 20-2 9 years old = 116. [facility] Comment on above: Chronic Kidney disea se, GFR = <60. Kidney failure, GFR = <15. The GFR estimate is not adjusted for extreme body surface area or acute process, nor has it been validated for women or ethnic groups other than and . GFR/1.73 sq M.predicted among blacks MDRD (S/P/Bld) [Vol rate/Area] mL/min/{1.73_m2} ml/min/1.73s q.m [facility] GFR/1.73 sq M.predicted among non-blacks MDRD (S/P/Bld) [Vol rate/Area] mL/min/{1.73_m2} ml/min/1.73s q.m [facility] Glucose post fast [Mass/Vol] 96 mg/dL [facility] Comment on above: NORMAL <100 mg/dL PREDIABETES 101-126 mg/dL DIABETES 126 mg/dL or higher Potassium [Moles/Vol] 4.0 mmol/L [facility] Protein [Mass/Vol] 7.9 g/dL [facility] Sodium [Moles/Vol] 138 mmol/L [facility] Urea nitrogen [Mass/Vol] 16 mg/dL [facility] ECGOrdered By: Johnny valero on 12-28-2020 [facility] Work Phone: HEMOGLOBIN A1Con 12-28-2020 Glucose [Mass/Vol] 131 mg/dL [facility] HbA1c (Bld) [Mass fraction] 6.2 % High <6 [facility] Comment on above: NORMAL <5.7% PREDIABETES 5.7-6.4% DIABETES 6.5% OR HIGHER Interpretation and review of laboratory results Abnormal [facility] IRON/IRON BINDING/TRANSFERRI Non 12-28-2020 Iron [Mass/Vol] 40 ug/dL [facility] Iron binding capacity [Mass/Vol] 357 [facility] Iron saturation [Mass fraction] 11 % [facility] LIPID PANEL W CALCULATED LDL on 12-28-2020 Cholesterol [Mass/Vol] 177 mg/dL [facility] Cholesterol in HDL [Mass/Vol] 49 mg/dL [facility] Cholesterol in LDL [Mass/Vol] 89 mg/dL [facility] Cholesterol in VLDL [Mass/Vol] 39 mg/dL High [facility] Cholesterol.total/Desirae sterol in HDL [Mass ratio] 3.61 {ratio} RATIO [facility] Comment on above: RISK TOTAL/HDL RATIO MEN WOMEN 1/2 AVERAGE 3.43 3.27 AVERAGE 4.97 4.44 2X AVERAGE 9.55 7.05 3X AVERAGE 23.99 11.04 Triglyceride [Mass/Vol] 194 mg/dL High <150 MG/DL [facility] [employer] No Panel Informationon 12-28 [facility] Interpretation and review of laboratory results Abnormal [facility] TSHon 12-28-2020 TSH Qn 1.050 m[IU]/L [facility] VITAMIN D (25-HYDROXY,TOTAL) on 12-28-2020 25-hydroxyvitamin D [Mass/Vol] 31.4 >30 NG/ML [facility] Comment on above: DEFICIENT <20 NG/ML INSUFFICIENT 20-<30 NG/ML SUFFICIENT 30-100 NG/ML POTENTIAL TOXICITY >100 NG/ML XR CHEST PA AND LATERALon IMPRESSION: Normal radiographic appearance of the chest. RADIOLOGY EXAM: XR CHEST PA AN D LATERAL HISTORY: preop COMPARISON: None. FINDINGS: Frontal and lateral views of the chest were obtained. The cardiomediastinal silhouette is within normal limits. Lungs are clear without focal airspace consolidation. No pneumothorax or pleural effusion. Visualized portions of the upper abdomen are unremarkable. No acute osseous abnormalities. [facility] Nato Chandler MD - 12/28/2020 EXAM: XR CHEST PA AND LATERAL HISTORY: preop COMPARISON: None. FINDINGS: Frontal and lateral views of the chest were obtained. The cardiomediastinal silhouette is within normal limits. Lungs are clear without focal airspace consolidation. No pneumothorax or pleural effusion. Visualized portions of the upper abdomen are unremarkable. No acute osseous abnormalities. IMPRESSION IMPRESSION: Normal radiographic appearance of the chest. [facility] Radiology Study observation (narrative) [facility] XR CHEST PA AND LATERALOrder ed By: Nato Chandler on 12-28-2020 [facility] Work Phone: No Panel Informationon 10-30 [facility] [address] Work Phone: [email or web address] {[email or web address]} [facility] [address] Work Phone: Coronavirus 2019 RNA by PCR, Screening Asymptomticon 10-27-2020 Coronavirus 2019 RNA by PCR, Screening Asymptomtic Not detected Normal See Below [facility] [address] Work Phone: Comment on above: SOURCE: Nasal, Nasop haryngealReference Range: Not Detected.This assay is designed to detect SARS-CoV-2 based on replication of specific regions of the RNA from the SARS-CoV-2 virus. A Not Detected result does not preclude 2019-nCoV infection since the adequacy of sample collection and/or low viral burden may result in presence of viral nucleic acids below the clinical sensitivity of this test method. Fact sheet for providers: https://www.fda.gov/media/412122/downloadFact sheet for patients: https://www.fda.gov/media/727229/downloadThis test has received FDA Emergency Use Authorization [EUA] and has been verified by [facility] ([facility]). This test is only authorized for the duration of time that circumstances exist to justify the authorization of the emergency use of in vitro diagnostic tests for the detection of SARS-CoV-2 virus and/or diagnosis of COVID-19 infection under section 564(b)(1) of the Act, 21 U.S.C. 360bbb-3(b)(1), unless the authorization is terminated or revoked sooner. [facility] is certified under CLIA-88 as qualified to perform high complexity testing. Testing is performed in the [facility] laboratories located at [address] [place] [address]. Hemoglobin A1Con 01-07-2020 HbA1c (Bld) [Mass fraction] 111 {MG/DL} [facility] [employer] Work Phone: HbA1c (Bld) [Mass fraction] 5.5 % [facility]: Comment on above: Diagnosis of Diabete s-Adults Non-Diabetic: < or = 5.6% Increased risk for developing diabetes: 5.7-6.4% Diagnostic of diabetes: > or = 6.5%. Monitoring of Diabetes Age (y) Therapeutic Goal (%) Adults: >18 <7.0 Pediatrics: 13-18 <7.5 7-12 <8.0 0- 6 7.5-8.5 [place] [employer]. Diabetes Care 33(S1), Jun 2009. Hepatitis C Antibody Teston 01-07-2020 Hepatitis C Antibody Test NONREACTIVE See Below [facility] [employer] Work Phone: Comment on above: SOURCE: Reference Ra nge: NONREACTIVE Results from patients taking biotin supplements or receiving high-dose biotin therapy should be interpreted with caution due to possible interference with this test. Providers may contact their local laboratory for further information. SOURCE: Reference Ra nge: NONREACTIVE Biotin interference may cause falsely decreased results. Patients taking a Biotin dose of up to 5 mg/day should refrain from taking Biotin for 24 hours before sample collection. Providers may contact their local laboratory for further information. SOURCE: Reference Ra nge: NONREACTIVE HIV Ag/Ab screen is performed using the [employer] HIV Ag/Ab Combo assay which detects the presence of HIV p24 antigen as well as antibodies to HIV-1 (Group M and O) and HIV-2. Rubella IgG Antibodyon 01-06 Rubella virus IgG IA Ql Equivocal W [facility] [employer] Work Phone: Comment on above: SOURCE: INTERPRETATI VE COMMENT NEGATIVE: No IgG antibodies specific to Rubella detected. It is likely that the patient has not had a previous exposure to Rubella through infection or vaccination. Alternatively, the patient may have been exposed to Rubella but a failure to respond may indicate immunodeficiency. EQUIVOCAL:Equivocal results; obtain additional sample for retesting. POSITIVE: IgG antibody to Rubella detected. This may indicate that the patient was exposed to Rubella through infection or vaccination.The interpretation of serological tests should take into accountthe immunological status of the patient. Test results forpatients, including immunocompromised patients, neonates, andpediatric patients, reflect their capacity to respondimmunologically to the virus as well as their exposure to thepathogen. Patients treated with IVIG may demonstrate alteredresults in serological assays. SYPHILIS SCREENING WITH [facility] 01-07-2020 T. pallidum IgG+IgM IA Ql (S) NONREACTIVE See Below [facility] Work Phone: Comment on above: SOURCE: Reference Ra nge: NONREACTIVENo significant level of Treponema pallidum antibody detected. Repeat testing in 2 to 4 weeks may be considered if early infection or incubating syphilis infection is suspected. Total Protein, Urine Spoton 01-07-2020 Creatinine (U) [Mass/Vol] 87.0 mg/dL See Below [facility] Work Phone: Comment on above: Reference Range: 20. 0 - 320.0 Protein (U) [Mass/Vol] 8 mg/dL 5 - 24 [facility] Work Phone: Protein/Creatinine (U) [Ratio] 0.09 {mg/mg_Creat} See Below [facility] Work Phone: Comment on above: Reference Range: 0.0 0 - 0.17 Imm/Pathon 12-05-2019 Cytology report Cyto stain.thin prep Doc (Cvx/Vag) Date of Procedure: 12/05/2019 [facility]ologist[facility], CytologyDate Reported: 12/26/2019Date Received: 12/06/2019Submitting Physician: ROSALBA THOMAS DO FINAL CYTOLOGICAL INTERPRETATIONA. THINPREP PAP CERVICAL Reflex - Ascus only: Specimen adequacy:SATISFACTORY FOR EVALUATION.Quality Indicator: Endocervical/transformat ion zone component is present. General Categorization:NEGATIVE FOR INTRAEPITHELIAL LESION OR MALIGNANCY. Ancillary Testing:Specimen does not meet the requisition-stated criteria for HPV testing. See Paptest interpretation above.[employer] Supervisor slide review performed at [facility], [address] [place] [address] [id number] Signed Out By [facility], Cytology//LSM By the signature on this report, the individual or group listed as making theFinal Interpretation/Diagnosis certifies that they have reviewed this case.Educational Note:Cervical cytology is a screening procedure primarily for squamous cancers andprecursors and has associated false-negative and false-positive results asevidenced by published data. Your patient's test should be interpreted in thiscontext, together with patient's history and clinical findings. Regularsampling and follow-up of unexplained clinical signs and symptoms arerecommended to minimize false negative results. Clinical HistoryDate of Last Menstrual Period: {Not Entered}Menstrual History:Other Clinical Conditions:HPV Reflex for ASC-US only - Include HPV Genotype XdeszwL79.3 Z12.4Z11.5 Source of SpecimenA: THINPREP PAP CERVICAL Reflex - Ascus only [facility] [employer] Work Phone: Cult, Urineon 11-04-2019 Bacteria identified Cx Nom (U) PATIENT: AYE WEIR LOCATION: [facility]#: [id number] : 89 AGE: SEX: F ORDERED BY: JAYSHREE COLIN: URINE COLLECTED: 11/04/19 18:05ANTIBIOTICS AT [facility].: RECEIVED : 11/05/19 12:29SITE: Clean Catch/Voided R E S U L T S URINE CULTURE,BACTERIAL FINAL 11/06/19 07:45 NO SIGNIFICANT GROWTH. [facility] [employer] Work Phone: Comment on above: Ordering Provider: Khushbu COLIN [id number] Daily Progress Note - OB-Ant enatal Testingon 04-20-2019 Daily Progress Note - OB- Testing Current Stage: Stage: Testing OB Dating: EDC/EGA: Final [id number] EGA36.6 Subjective Data: Antepartum: Vaginal Bleeding: No Contractions/Abdominal Pain: No Discharge/Loss of Fluid: No Movement: Good Antepartum: Presents for NST due to obesity Objective Information: Objective Information: T PRBPSpO2 Value36.70163378/8098% Date/Time04/20 14: 14: 14: 14: 14:52 Range(36.9C - 36.9C ) (97 - 97 ) (16 - 16 ) (120 - 120 )/ (80 - 80 ) (98% - 98% ) Highest temp of 36.9 C was recorded at 04/20 14:52 Testing: NST Interpretation - Baby A: InterpretationReactive (2 15x15 accels) Assessment and Plan: Additional Dx: Morbid obesity with BMI of 45.0-49.9, adult: Entered Date: 20-Apr-2019 15:13 Obesity in , antepartum, third trimester: Entered Date: 20-Apr-2019 15:12 36 weeks gestation of : Entered Date: 20-Apr-2019 15:11 Assessment: Reactive NST Electronic Signatures: Jacquelyn Walker) (Signed 20-Apr-2019 15:14) Authored: Current Stage, OB Dating, Subjective Data, Objective Data, Testing, Assessment and Plan, Signature/Cosignature/At testation Last Updated: 20-Apr-2019 15:14 by Jacquelyn Walker) [facility] Follow Upon Follow Up Exam Date/Time: 02/25/2019 12:30 EDT Reason for Exam: CHECKING GROWTH; Size - measuring standard growth/amniotic fluid volume Report STUDY: US Follow Up; 02/25/2019 12:30 pm INDICATION: Size - measuring standard growth/amniotic fluid volume. COMPARISON: None. ACCESSION NUMBER(S): [id number] ORDERING CLINICIAN: Rosabla Thomas TECHNIQUE: Multiple images were obtained. Transabdominal ultrasound was performed. FINDINGS: There is a single live intrauterine gestation in . BPD 7.4 cm, 29 weeks 5 days HC 26.9 cm, 29 weeks 3 days AC 25.4 cm, 29 weeks 4 days FL 5.7 cm, 30 weeks 1 day This results in a composite gestational age of 29 weeks 5 days +/-2 weeks 1 day. The estimated date of delivery by ultrasound is 05/08/2019. By dates the DOMONIQUE is 05/12/2019 heart rate measures 152. Evaluation of anatomy was not performed. Estimated weight 1448 g +/-217 g corresponding to 59.8% The placenta location is anterior. The amniotic fluid index is 16.1 cm IMPRESSION: Single live intrauterine gestation corresponding to 29 weeks 5 days +/-2 weeks 1 day. FINAL REPORT Dictated: 02/25/2019 4:43 pm Johny Mirza MD Signed (Electronic Signature): 02/25/2019 4:43 pm Signed by: Johny Mirza MD Technologist: AMS Normal [facility] Auto Diffon 02-14-2019 Basophils (Bld) [#/Vol] 0.1 E3/mcL Normal 0.0-0.2 [facility] Comment on above: Order Comment: Order Added by Discern Expert. Performed By: #### 2 [id number] #### [facility] [address] [place] [address] Basophils/100 WBC (Bld) 0.4 % Normal 0.0-2.0 [facility] Comment on above: Order Comment: Order Added by Discern Expert. Performed By: #### 2 [id number] #### [facility] [address] [place] [address] Eos Absolute 0.1 E3/mcL Normal 0.0-0.7 [facility] Comment on above: Order Comment: Order Added by Discern Expert. Performed By: #### 2 [id number] #### [facility] [address] [place] [address] Eosinophils/100 WBC (Bld) 0.6 % Normal 0.0-11.0 [facility] Comment on above: Order Comment: Order Added by Discern Expert. Performed By: #### 2 [id number] #### [facility] [address] [place] [address] Lymphocytes (Bld) [#/Vol] 1.8 E3/mcL Normal 1.2-3.4 [facility] Comment on above: Order Comment: Order Added by Discern Expert. Performed By: #### 2 [id number] #### [facility] [address] [place] [address] Lymphocytes/100 WBC (Bld) 15.3 % Low 20.0-55.0 [facility] Comment on above: Order Comment: Order Added by Discern Expert. Performed By: #### 2 [id number] #### [facility] [address] [place] [address] Gooding Absolute 0.6 E3/mcL Normal 0.0-0.7 [facility] Comment on above: Order Comment: Order Added by Discern Expert. Performed By: #### 2 [id number] #### [facility] [address] [place] [address] Monocytes/100 WBC (Bld) 5.0 % Normal 0.0-10.0 [facility] Comment on above: Order Comment: Order Added by Discern Expert. Performed By: #### 2 [id number] #### [facility] [address] [place] [address] Neutro Absolute 9.0 E3/mcL High 1.4-6.5 [facility] Comment on above: Order Comment: Order Added by Discern Expert. Performed By: #### 2 [id number] #### [facility] [address] [place] [address] Neutro Auto 78.7 % High 37.0-75.0 [facility] Comment on above: Order Comment: Order Added by Discern Expert. Performed By: #### 2 [id number] #### [facility] [address] [place] [address] CBC w/ Auto Diffon 9 Erythrocyte distribution width (RBC) [Ratio] 14.2 % Normal 11.5-14.5 [facility] Comment on above: Performed By: #### 2 [id number] #### [facility] [address] [place] [address] Hematocrit (Bld) [Volume fraction] 34.7 % Low 36.0-48.0 [facility] Comment on above: Performed By: #### 2 [id number] #### [facility] [address] [place] [address] Hemoglobin (Bld) [Mass/Vol] 11.4 g/dL Low 12.0-16.0 [facility] Comment on above: Performed By: #### 2 [id number] #### [facility] [address] [place] [address] MCH (RBC) [Entitic mass] 29.4 pg Normal 27.0-31.0 [facility] Comment on above: Performed By: #### 2 [id number] #### [facility] [address] [place] [address] MCHC (RBC) [Mass/Vol] 32.8 g/dL Low 33.0-37.0 [facility] Comment on above: Performed By: #### 2 [id number] #### [facility] [address] [place] [address] MCV (RBC) [Entitic vol] 89.6 fL Normal 78.0-100.0 [facility] Comment on above: Performed By: #### 2 [id number] #### [facility] [address] [place] [address] Platelet mean volume (Bld) [Entitic vol] 8.5 fL Normal 7.4-11.0 [facility] Comment on above: Performed By: #### 2 [id number] #### [facility] [address] [place] [address] Platelets (Bld) [#/Vol] 284 E3/mcL Normal 130-400 [facility] Comment on above: Performed By: #### 2 [id number] #### [facility] [address] [place] [address] RBC (Bld) [#/Vol] 3.87 E6/mcL Low 3.90-5.40 [facility] Comment on above: Performed By: #### 2 [id number] #### [facility] [address] [place] [address] WBC (Bld) [#/Vol] 11.5 E3/mcL High 3.6-11.0 [facility] Comment on above: Performed By: #### 2 [id number] #### [facility] [address] [place] [address] Gest Scr Glu 1 Hron 02-15-20 Glucose [Mass/Vol] 116 mg/dL Normal 70-140 [facility] Comment on above: Performed By: #### 2 [id number] #### [facility] [address] [place] [address] US After 1st Trime steron 12-22-2018 US After 1st Trimester Exam Date/Time: 12/21/2018 14:34 EDT Reason for Exam: DATES AND ANATOMY;Standard Anatomy Report STUDY: US After 1st Trimester 12/21/2018 2:34 pm INDICATION: Standard Anatomy. COMPARISON: 09/20/2018 ACCESSION NUMBER(S): [id number] ORDERING CLINICIAN: Rosalba Thomas TECHNIQUE: Routine ultrasound of the pelvis was performed. Evaluation of the female pelvis was performed by transabdominal. FINDINGS: There is a single live intrauterine gestation in variable position. BPD 45mm, 19 weeks, 3 days HC 170mm, 19 weeks, 4 days AC 147 amm, 20 weeks, 0 days FL 31mm, 19 weeks, 5 days This results in a composite gestational age of 19 weeks, 4 days, +/-10 days. The estimated date of delivery by ultrasound is 05/13/2019. By dates the fetus should be 19 weeks, 5 days, which is concordant with the ultrasound dating. There is an estimated weight of 315 g +/-47 g (51st percentile). heart rate measures 145 beats per minute. Anatomy: HEART (FOUR-CHAMBER): Seen THREE-VESSEL CORD: Seen UMBILICAL CORD INSERTION: Seen BLADDER: Seen STOMACH: Seen SPINE: Seen KIDNEYS: Seen DIAPHRAGM: Seen LATERAL VENTRICLE: Seen The placenta is an anterior position. No evidence of placenta previa is seen. The amniotic fluid volume is within normal limits. Exam Date/Time: 12/21/2018 14:34 EDT Report Maternal anatomy: The cervix is closed, measuring up to 4.5 cm in length. IMPRESSION: Single live intrauterine gestation corresponding to 19 weeks, 4 days, +/-10 days. No gross anatomic abnormality is identified. Recommend continued routine follow-up imaging evaluation. FINAL REPORT Dictated: 12/22/2018 9:36 am Mat Salvador MD Signed (Electronic Signature): 12/22/2018 9:36 am Signed by: Mat Salvador MD Technologist: [facility] AFP Tetra Profileon 11-27-19 19 AFP TP AFP Mom Value 1.81 [facility] Comment on above: Performed By: #### 2 [id number] #### BRENT RemHemo [address] [place] [address] AFP TP AFP Soco EIA 39.2 ng/mL [facility] Comment on above: Performed By: #### 2 [id number] #### BRENT RemHemo [address] [place] [address] AFP TP Comments: Comment [facility] Comment on above: Result Comment: Kirsty Jorgensen, Ph.D., [facility] [employer] References: Available Upon Request. Multiples Of Median Cutoffs Abbreviation Definitions For AFP Elevations IDD- Insulin Dep Diabetes Wilson 2.5 Black 2.8 OSBR- Open Spina Bifida IDD 2.0 Twins 4.5 Risk DSR Cutoff 1:270 DSR- Down Syndrome Risk T18 Cutoff 1:100 T18- Trisomy 18 Down Syndrome and Trisomy 18 screening are considered Investigational For further inquiries contact [employer] [facility] at [phone]. Performed At: [facility] [address], [place] [id number] Gladys Calles MD Ph:[phone] Performed By: #### 2 [id number] #### BRENT RemHemo [address] [place] [address] AFP TP BENJI Mom Value 1.50 [facility] Comment on above: Performed By: #### 2 651723 #### BRENT RemHemo [address] [place] [address] AFP TP BENJI Value EIA 191.13 pg/mL [facility] Comment on above: Performed By: #### 2 524860 #### BRENT RemHemo [address] [place] [address] AFP TP DSR 2nd Times 1IN [address] [facility] Comment on above: Performed By: #### 2 287487 #### BRENT RemHemo [address] [place] [address] AFP TP DSR(by Age) 1IN 1097 [facility] Comment on above: Performed By: #### 2 541291 #### BRENT RemHemo [address] [place] [address] AFP TP GA Base DOMONIQUE [facility] Comment on above: Result Comment: 05/01 Performed By: #### 2 995851 #### BRENT RemHemo [address] [place] [address] AFP TP Gest Age 15.7 week(s) [facility] Comment on above: Performed By: #### 2 921396 #### BRENT WhiteHemo [address] [place] [address] AFP TP hCG Mom 1.93 [facility] Comment on above: Performed By: #### 2 653965 #### BRENT WhiteHemo [address] [place] [address] AFP TP Insulin Dep Diabetes No [facility] Comment on above: Performed By: #### 2 452532 #### BRENT WhiteHemo [address] [place] [address] AFP TP Interp Comment [facility] Comment on above: Result Comment: Inte rpretation: Screen Negative This result is screen negative for OSB, Down Syndrome and Trisomy 18. The AFP MoM and patient specific risks calculated are based on the gestational age and the clinical information provided. This test can identify up to 80% of open neural tube defects. Closed neural tube defects and some open defects may not be detected by this test. The combination of maternal age, AFP, hCG, uE3, and BENJI identifies 75-80% of Down Syndrome. The combination of maternal age, AFP, hCG and uE3 identifies 60% of Trisomy 18 pregnancies. The [employer] recommends amniocentesis be offered to women age 35 and older. Recalculations are not recommended when gestational dating by LMP and ultrasound are within 10 days. Performed By: #### 2 616582 #### BRENT RemHemo [address] [place] [address] AFP TP Mat Age DOMONIQUE 23.2 [facility] Comment on above: Performed By: #### 2 389470 #### BRENT RemHemo [address] [place] [address] AFP TP Mult Gest No [facility] Comment on above: Performed By: #### 2 332443 #### BRENT RemHemo [address] [place] [address] AFP TP OSBR Risk 1 IN 1248 [facility] Comment on above: Performed By: #### 2 615220 #### BRENT RemHemo [address] [place] [address] AFP TP Race [facility] Comment on above: Performed By: #### 2 127577 #### BRENT RemHemo [address] [place] [address] AFP TP T18 (By Age) Not increased [facility] Comment on above: Performed By: #### 2 398994 #### BRENT RemHemo [address] [place] [address] AFP TP T18 Risk 1:4274 [facility] Comment on above: Performed By: #### 2 397569 #### BRENT RemHemo [address] [place] [address] AFP TP Test Results: Negative [facility] Comment on above: Performed By: #### 2 156683 #### BRENT RemHemo [address] [place] [address] AFP TP uE3 Mom 0.96 [facility] Comment on above: Performed By: #### 2 198135 #### BRENT RemHemo [address] [place] [address] AFP TP uE3 Value 0.64 ng/mL [facility] Comment on above: Performed By: #### 2 718118 #### BRENT WhiteHemo [address] [place] [address] [place] [address] m[IU]/mL [facility] Comment on above: Performed By: #### 2 724789 #### BRENT WhiteHemo [address] [place] [address] Gest Scr Glu 1 Hron 11-24-19 19 Glucose [Mass/Vol] 131 mg/dL Normal 70-140 [facility] Comment on above: Performed By: #### 2 631909 #### [place]ENT [place] [id number] Lab Miscellaneouson 11-18-19 19 Status Sent Out Normal [facility] Comment on above: Performed By: #### 2 [id number] #### BRENT [place] [id number] Hep Bs Agon 10-27-2018 Hep Bs Ag Negative Normal Negative [facility] Comment on above: Result Comment: Perf ormed At: CB [facility] [address] [id number] Thuy Juan PhD Ph:[phone] Performed By: #### 2 768445 #### [place] [address] RPRon 10-27-2018 Reagin Ab RPR Ql (S) Non-Reactive Normal Non-Reactive [facility] Comment on above: Performed By: #### 2 687043 #### [place] [address] Rubella IgG Lvlon 10-27-2018 Rubella IgG Lvl 15.2 (POS) Normal [facility] Comment on above: Result Comment: <10I U/ml NON REACTIVE: NOT IMMUNE 10-15 IU/ml RUBELLA SPECIFIC AB PRESENT, EVALUATE FURTHER TO DETERMINE IMMUNE STATUS >15 IU/ml REACTIVE, IMMUNE Performed By: #### 2 138126 #### BRENT [place] [id number] Antibody Screen Cap...on Screen Interp... Negative [facility] Comment on above: Performed By: #### 2 492628 #### BRENT [place] [address] Chlamydia GC by PCRon 2018 Chlamydia by PCR. Not Detected Normal Not Detected [facility] Comment on above: Result Comment: Xper t CT/NG Assay performance has not been evaluated in patients less than 14 years of age. Performed By: #### 2 856780 #### BRENT CindyHemo [address] [place] [address] Gonorrhoeae by PCR Not Detected Normal Not Detected [facility] Comment on above: Result Comment: Xper t CT/NG Assay performance has not been evaluated in patients less than 14 years of age. Performed By: #### 2 528668 #### BRENT Jimenezo [facility] [place] [address] HIV-1/2 Ag/Abon 10-26-2018 HIV Combo Internal Control Line Reactive Normal Reactive [facility] Comment on above: Performed By: #### 2 712785 #### BRENT WhiteHemo [facility] [place] [address] HIV-1 & HIV-2 Antibodies Non-Reactive Normal Non-Reactive [facility] Comment on above: Performed By: #### 2 796009 #### BRENT Jimenezo [address] [place] [address] HIV-1 p-24 Antigen Non-Reactive Normal Non-Reactive [facility] Comment on above: Performed By: #### 2 260096 #### BRENT WhiteHemo [address] [place] [address] HIV-1/2 Ag/Ab Interp Negative Normal Negative [facility] Comment on above: Performed By: #### 2 230939 #### BRENT Jimenezo [address] [place] [address] Lab Miscellaneouson 10-27-19 19 Test Name counsyl Normal [facility] Comment on above: Performed By: #### 2 893568 #### BRENT Jimenezo [address] [place] [address] C Urineon 09-22-2018 C Urine Final Report: Modera te Normal skin daphne isolated Normal [facility] Comment on above: Performed By: #### 2 267252 #### BRENTDoreen WhiteHemo [address] [place] [address] ABO/Rh Echoon 09-20-2018 ABO/Rh E Interp... Positive Normal [facility] Comment on above: Performed By: #### 2 473148 #### BRENTDoreen WhiteHemo [address] [place] [address] Auto Diffon 09-20-2018 Basophils (Bld) [#/Vol] 0.1 E3/mcL Normal 0.0-0.2 [facility] Comment on above: Order Comment: Order Added by Discern Expert. Performed By: #### 2 945636 #### BRENT RemHemo [address] [place] [address] Basophils/100 WBC (Bld) 1.0 % Normal 0.0-2.0 [facility] Comment on above: Order Comment: Order Added by Discern Expert. Performed By: #### 2 862082 #### BRENT RemHemo [address] [place] [address] Eos Absolute 0.1 E3/mcL Normal 0.0-0.7 [facility] Comment on above: Order Comment: Order Added by Discern Expert. Performed By: #### 2 518138 #### BRENT RemHemo [address] [place] [address] Eosinophils/100 WBC (Bld) 0.9 % Normal 0.0-11.0 [facility] Comment on above: Order Comment: Order Added by Discern Expert. Performed By: #### 2 817210 #### BRENT RemHemo [address] [place] [address] Lymphocytes (Bld) [#/Vol] 2.5 E3/mcL Normal 1.2-3.4 [facility] Comment on above: Order Comment: Order Added by Discern Expert. Performed By: #### 2 609743 #### BRENT RemHemo [address] [place] [address] Lymphocytes/100 WBC (Bld) 24.0 % Normal 20.0-55.0 [facility] Comment on above: Order Comment: Order Added by Discern Expert. Performed By: #### 2 356767 #### BRENT RemHemo [address] [place] [address] Gooding Absolute 0.8 E3/mcL High 0.0-0.7 [facility] Comment on above: Order Comment: Order Added by Discern Expert. Performed By: #### 2 395469 #### BRENT RemHemo [address] [place] [address] Monocytes/100 WBC (Bld) 8.0 % Normal 0.0-10.0 [facility] Comment on above: Order Comment: Order Added by Discern Expert. Performed By: #### 2 179161 #### BRENT WhiteHemo [address] [place] [address] Neutro Absolute 6.9 E3/mcL High 1.4-6.5 [facility] Comment on above: Order Comment: Order Added by Discern Expert. Performed By: #### 2 257713 #### BRENT WhiteHemo [address] [place] [address] Neutro Auto 66.1 % Normal 37.0-75.0 [facility] Comment on above: Order Comment: Order Added by Discern Expert. Performed By: #### 2 426640 #### BRENT WhiteHemo [address] [place] [address] BMPon 09-20-2018 Anion gap [Moles/Vol] 12 mmol/L Normal 10-20 [facility] Comment on above: Performed By: #### 2 604791 #### BRENT WhiteHemo [address] [place] [address] Calcium [Mass/Vol] 9.3 mg/dL Normal 8.6-10.3 [facility] Comment on above: Performed By: #### 2 422099 #### BRENT WhiteHemo [address] [place] [address] Chloride [Moles/Vol] 105 mmol/L Normal 98-107 [facility] Comment on above: Performed By: #### 2 161732 #### BRENT RemHemo [address] [place] [address] CO2 [Moles/Vol] 23.0 mmol/L Normal 21.0-32.0 [facility] Comment on above: Performed By: #### 2 001376 #### BRENT RemHemo [address] [place] [address] Creatinine [Mass/Vol] 0.7 mg/dL Normal 0.5-1.1 [facility] Comment on above: Performed By: #### 2 859857 #### BRENT RemHemo [address] [place] [address] Glucose [Mass/Vol] 99 mg/dL Normal 70-99 [facility] Comment on above: Performed By: #### 2 536297 #### BRENT RemHemo [address] [place] [address] Potassium [Moles/Vol] 4.0 mmol/L Normal 3.5-5.3 [facility] Comment on above: Performed By: #### 2 992724 #### BRENT WhiteHemo [address] [place] [address] Sodium [Moles/Vol] 136 mmol/L Normal 136-145 [facility] Comment on above: Performed By: #### 2 519711 #### BRENT WhiteHemo [address] [place] [address] Urea nitrogen [Mass/Vol] 13 mg/dL Normal 6-23 [facility] Comment on above: Performed By: #### 2 871911 #### BRENT WhiteHemo [address] [place] [address] Urea nitrogen/Creatinine [Mass ratio] 18.6 ratio Normal 5.4-30.0 [facility] Comment on above: Performed By: #### 2 375490 #### BRENT WhiteHemo [address] [place] [address] BhCG Quanton 09-20-2018 [place] [address].0 mIU/mL High 0.0-2.9 [facility] Comment on above: Result Comment: FEMA LE (NON-) & MALE <3 BORDERLINE 3 - 25 SUGGEST REPEAT TESTING FEMALE () 1 D - 1 WK 25 - 50 1 - 2 WK 50 - 500 2 - 3 WK 100 - 5000 3 - 4 WK 500 - 26795 4 - 5 WK 1000 - 07618 5 - 6 WK 32624 - 717610 6 - 8 WK [address] - 256281 2 - 3 [place] [address] - [address]23998 Performed By: #### 2 817168 #### BRENT WhiteHemo [address] [place] [address] CBC w/ Auto Diffon 9 Erythrocyte distribution width (RBC) [Ratio] 14.3 % Normal 11.5-14.5 [facility] Comment on above: Performed By: #### 2 032236 #### BRENT WhiteHemo [address] [place] [address] Hematocrit (Bld) [Volume fraction] 38.7 % Normal 36.0-48.0 [facility] Comment on above: Performed By: #### 2 636716 #### BRENT WhiteHemo [address] [place] [address] Hemoglobin (Bld) [Mass/Vol] 12.7 g/dL Normal 12.0-16.0 [facility] Comment on above: Performed By: #### 2 247296 #### BRENT WhiteHemo [address] [place] [address] MCH (RBC) [Entitic mass] 28.2 pg Normal 27.0-31.0 [facility] Comment on above: Performed By: #### 2 450918 #### BRENT WhiteH[address] [address] MCHC (RBC) [Mass/Vol] 32.8 g/dL Low 33.0-37.0 [facility] Comment on above: Performed By: #### 2 604725 #### BRENT WhiteHemo [address] [place] [address] MCV (RBC) [Entitic vol] 85.8 fL Normal 78.0-100.0 [facility] Comment on above: Performed By: #### 2 316181 #### BRENT WhiteHemo [address] [place] [address] Platelet mean volume (Bld) [Entitic vol] 7.9 fL Normal 7.4-11.0 [facility] Comment on above: Performed By: #### 2 876543 #### BRENT WhiteHemo [address] [place] [address] Platelets (Bld) [#/Vol] 340 E3/mcL Normal 130-400 [facility] Comment on above: Performed By: #### 2 118512 #### BRENTDoreen WhiteHemo [facility] [place] [address] RBC (Bld) [#/Vol] 4.52 E6/mcL Normal 3.90-5.40 [facility] Comment on above: Performed By: #### 2 285968 #### BRENT CindyHemo [address] [place] [address] WBC (Bld) [#/Vol] 10.5 E3/mcL Normal 3.6-11.0 [facility] Comment on above: Performed By: #### 2 154118 #### BRENT RemHemo [address] [place] [address] UA Completeon 09-20-2018 Color (U) Yellow Normal Yellow [facility] Comment on above: Performed By: #### 2 573780 #### BRENTDoreen WhiteHemo [address] [place] [address] Glucose (U) [Mass/Vol] Negative Normal Negative [facility] Comment on above: Performed By: #### 2 140315 #### BRENT RemHemo [address] [place] [address] Ketones Ql (U) Negative Normal Negative [facility] Comment on above: Performed By: #### 2 019891 #### BRENTDoreen WhiteHemo [address] [place] [address] RBC (U) [#/Vol] 0-3 Normal 0-3 [facility] Comment on above: Performed By: #### 2 919667 #### BRENT RemHemo [address] [place] [address] UA Blood Negative Normal Negative [facility] Comment on above: Performed By: #### 2 341552 #### BRENT RemHemo [address] [place] [address] UA Ascorbic Acid 40 mg/dL High <=19 [facility] Comment on above: Performed By: #### 2 838278 #### BRENT RemHemo [address] [place] [address] UA Bacteria 1+ /HPF Abnormal None [facility] Comment on above: Performed By: #### 2 148947 #### BRENT RemHemo [address] [place] [address] UA Clarity SltCloudy Abnormal Clear [facility] Comment on above: Performed By: #### 2 766757 #### BRENT RemHemo [address] [place] [address] UA Leuk Est 3+ Abnormal Negative [facility] Comment on above: Performed By: #### 2 889906 #### BRENT RemHemo [address] [place] [address] UA Mucous Occasional Abnormal Trace [facility] Comment on above: Performed By: #### 2 664173 #### BRENT WhiteHemo [address] [place] [address] UA Nitrite Negative Normal Negative [facility] Comment on above: Performed By: #### 2 509591 #### BRENT WhiteHemo [address] [place] [address] UA pH 6.0 Normal 4.6-8.0 [facility] Comment on above: Performed By: #### 2 688346 #### BRENT WhiteHemo [address] [place] [address] UA Protein Negative Normal Negative [facility] Comment on above: Performed By: #### 2 464177 #### BRENT WhiteHemo [address] [place] [address] UA Spec Grav 1.023 Normal 1.003-1.030 [facility] Comment on above: Performed By: #### 2 379448 #### BRENT WhiteHemo [address] [place], [place] [address] UA Squam Epithelial 10-20 Abnormal 0-5 [facility] Comment on above: Performed By: #### 2 601767 #### BRENT WhiteHemo [facility] [place] [address] UA Urobilinogen 2.0 mg/dL Abnormal [facility] Comment on above: Result Comment: Due to a manufacturing issue, low positive urobilinogen results may be fasely positive. Correlate with urine bilirubin and additional clinical/laboratory findings to assess the risk of hemolytic anemia or liver disease. If clinically indicated, repeat testing with an alternate method is available by contacting the laboratory within 24 hours. Performed By: #### 2 407513 #### BRENT WhiteHemo [address] [place] [address] UA WBC 10-20 Abnormal 0-5 [facility] Comment on above: Performed By: #### 2 249341 #### BRENT WhiteHemo [address] [place] [address] Urobilinogen Qn (U) Negative Normal Negative [facility] Comment on above: Performed By: #### 2 678691 #### BRENT RemHemo [address] [place] [id number] US Transvaginalon 09-20-2018 US Transvaginal Exam Date/Time: 09/20/2018 16:36 EDT Reason for Exam: viability Report STUDY: US Transvaginal; 09/20/2018 4:36 pm INDICATION: viability. Clinical age is 6 weeks, 6 days, with clinical DOMONIQUE of 05/10/2019. COMPARISON: Comparison with prior ultrasound pelvis from 10/17/2016. ACCESSION NUMBER(S): [id number] ORDERING CLINICIAN: Brett Colin TECHNIQUE: Transabdominal and endovaginal images were obtained. Grayscale imaging, color Doppler, and spectral Doppler were utilized. FINDINGS: The uterus measured 9.6 x 5.0 x 6.6 cm. There was a single, live intrauterine gestation with heart rate of 115 beats per minute. There was a normal appearing yolk sac adjacent to the developing fetus. The right ovary measured 32 x 24 x 23 mm, and was sonographically unremarkable. The left ovary was not well seen.. Color Doppler and spectral Doppler showed preserved right ovarian blood flow. There was no free pelvic fluid. Mean gestational age based on CRL is 6 weeks, 4 days, +/-3 days. Ultrasound DOMONIQUE is 05/12/2019. IMPRESSION: Single live intrauterine gestation with mean gestational age of 6 weeks, 4 days, +/-3 days. FINAL REPORT Dictated: 09/20/2018 4:43 pm Ozzie Angel MD Signed (Electronic Signature): 09/20/2018 4:43 pm Signed by: Ozzie Angel MD Technologist: JARETH [facility] eGFRon 09-20-2018 GFR/1.73 sq M predicted among non-blacks MDRD (S/P/Bld) [Vol rate/Area] mL/min/{1.73_m2} [facility] Comment on above: Order Comment: Order added by Discern Expert. Performed By: #### 2 [id number] #### BRENT RemHemo [address] [place] [id number] BhCG Quanton 09-04-2018 Beta hCG Qnt 131.0 mIU/mL High 0.0-2.9 [facility] Comment on above: Result Comment: FEMA LE (NON-) & MALE <3 BORDERLINE 3 - 5 SUGGEST REPEAT TESTING FEMALE () 1 D - 1 WK 5 - 50 1 - 2 WK 50 - 500 2 - 3 WK 100 - 5000 3 - 4 WK 500 - 74497 4 - 5 WK 1000 - 07082 5 - 6 WK 30060 - 894519 6 - 8 WK 74743 - 662390 2 - 3 [place] [address] - 241638 Performed By: #### 2 662300 #### BRENT RemHemo [address] [place] [address]45905 BhCG Quanton 09-02-2018 Beta hCG Qnt 46.0 mIU/mL High 0.0-2.9 [facility] Comment on above: Result Comment: FEMA LE (NON-) & MALE <3 BORDERLINE 3 - 5 SUGGEST REPEAT TESTING FEMALE () 1 D - 1 WK 5 - 50 1 - 2 WK 50 - 500 2 - 3 WK 100 - 5000 3 - 4 WK 500 - 86494 4 - 5 WK 1000 - 67861 5 - 6 WK 40012 - 599381 6 - 8 WK 59923 - 643224 2 - 3 [place] [address] - 544435 Performed By: #### 2 161752 #### BRENT [facility] [address] [place], [place] [address] Lab Miscellaneouson 07-23-19 19 Status Sent Out [facility] Comment on above: Performed By: #### 1 [id number] #### BRENT Send Outs Subsection [address] [place], [place] [address] Chlamydia GC by PCRon 2018 Chlamydia by PCR. Not Detected Normal Not Detected [facility] Comment on above: Result Comment: Xper t CT/NG Assay performance has not been evaluated in patients less than 14 years of age. Performed By: #### 3 [id number] #### BRENT Misc Micro SubSection , Gonorrhoeae by PCR Not Detected Normal Not Detected [facility] Comment on above: Result Comment: Xper t CT/NG Assay performance has not been evaluated in patients less than 14 years of age. Performed By: #### 3 [id number] #### BRENT Misc Micro SubSection , Lab Miscellaneouson 07-22-19 19 Test Name myriad Normal [facility] Comment on above: Performed By: #### 1 [id number] #### BRENT Send Outs Subsection [address] [place] [address] ABO/Rh Echoon 03-01-2018 ABO/Rh E Interp... Positive Normal [facility] Comment on above: Performed By: #### 8 [id number] #### BRENT [facility]section [address] [place] [address] Antibody Screen Cap...on Screen Interp... Negative Normal [facility] Comment on above: Performed By: #### 8 [id number] #### BRENT [facility]section [address] [place] [address] Auto Diffon 03-01-2018 Basophils (Bld) [#/Vol] 0.1 E3/mcL Normal 0.0-0.2 [facility] Comment on above: Order Comment: Order Added by Discern Expert. Performed By: #### 2 918131 #### BRENT RemHemo [address] [place] [address] Basophils/100 WBC (Bld) 0.8 % Normal 0.0-2.0 [facility] Comment on above: Order Comment: Order Added by Discern Expert. Performed By: #### 2 606136 #### RBENT RemHemo [address] [place], [place] [id number] Eos Absolute 0.0 E3/mcL Normal 0.0-0.7 [facility] Comment on above: Order Comment: Order Added by Discern Expert. Performed By: #### 2 [id number] #### BRENT RemHemo [address] [place] [address] Eosinophils/100 WBC (Bld) 0.4 % Normal 0.0-11.0 [facility] Comment on above: Order Comment: Order Added by Discern Expert. Performed By: #### 2 [id number] #### BRENT RemHemo [address] [place] [address] Lymphocytes (Bld) [#/Vol] 2.2 E3/mcL Normal 1.2-3.4 [facility] Comment on above: Order Comment: Order Added by Discern Expert. Performed By: #### 2 [id number] #### BRENT RemHemo [address] [place] [address] Lymphocytes/100 WBC (Bld) 18.8 % Low 20.0-55.0 [facility] Comment on above: Order Comment: Order Added by Discern Expert. Performed By: #### 2 [id number] #### BRENT RemHemo [address] [place] [address] Gooding Absolute 0.7 E3/mcL Normal 0.0-0.7 [facility] Comment on above: Order Comment: Order Added by Discern Expert. Performed By: #### 2 [id number] #### BRENT RemHemo [address] [place] [address] Monocytes/100 WBC (Bld) 5.9 % Normal 0.0-10.0 [facility] Comment on above: Order Comment: Order Added by Discern Expert. Performed By: #### 2 [id number] #### BRENT RemHemo [address] [place] [address] Neutro Absolute 8.5 E3/mcL High 1.4-6.5 [facility] Comment on above: Order Comment: Order Added by Discern Expert. Performed By: #### 2 [id number] #### BRENT RemHemo [address] [place] [address] Neutro Auto 74.1 % Normal 37.0-75.0 [facility] Comment on above: Order Comment: Order Added by Discern Expert. Performed By: #### 2 [id number] #### RBENT RemHemo [address] [place] [address] BMPon 03-01-2018 Anion gap [Moles/Vol] 16 mmol/L Normal 10-20 [facility] Comment on above: Performed By: #### 2 [id number] #### BRENT [facility] [address] [place] [address] Calcium [Mass/Vol] 9.2 mg/dL Normal 8.4-10.2 [facility] Comment on above: Performed By: #### 2 [id number] #### BRENT [facility] [address] [place] [address] Chloride [Moles/Vol] 102 mmol/L Normal 101-111 [facility] Comment on above: Performed By: #### 2 [id number] #### BRENT [facility] [address] [place] [address] CO2 [Moles/Vol] 24.3 mmol/L Normal 21.0-32.0 [facility] Comment on above: Performed By: #### 2 [id number] #### BRENT [facility] [address] [place] [address] Creatinine [Mass/Vol] 0.7 mg/dL Normal 0.5-1.0 [facility] Comment on above: Performed By: #### 2 [id number] #### BRENT [facility] [address] [place] [address] Glucose [Mass/Vol] 102 mg/dL High 70-99 [facility] Comment on above: Performed By: #### 2 [id number] #### BRENT [facility] [address] [place] [address] Potassium [Moles/Vol] 3.9 mmol/L Normal 3.5-5.3 [facility] Comment on above: Performed By: #### 2 [id number] #### BRENT [facility] [address] [place] [address] Sodium [Moles/Vol] 138 mmol/L Normal 136-145 [facility] Comment on above: Performed By: #### 2 [id number] #### BRENT [facility] [address] [place] [address] Urea nitrogen [Mass/Vol] 12 mg/dL Normal 6-23 [facility] Comment on above: Performed By: #### 2 [id number] #### BRENT [facility] [address] [place] [address] Urea nitrogen/Creatinine [Mass ratio] 17.1 ratio Normal 5.4-30.0 [facility] Comment on above: Performed By: #### 2 [id number] #### BRENT [facility] [address] [place] [address] BhCG Qualon 03-01-2018 Beta hCG Ql Negative Normal Negative [facility] Comment on above: Performed By: #### 2 [id number] #### BRENT Chemistry Manual Subsection [address] [place] [address] CBC w/ Auto Diffon 8 Erythrocyte distribution width (RBC) [Ratio] 12.8 % Normal 11.5-14.5 [facility] Comment on above: Performed By: #### 2 [id number] #### BRENT WhiteHemo [facility] [place] [address] Hematocrit (Bld) [Volume fraction] 39.6 % Normal 36.0-48.0 [facility] Comment on above: Performed By: #### 2 [id number] #### BRENT WhiteHemo [address] [place] [address] Hemoglobin (Bld) [Mass/Vol] 12.8 g/dL Normal 12.0-16.0 [facility] Comment on above: Performed By: #### 2 [id number] #### BRENT WhiteHemo [address] [place] [address] MCH (RBC) [Entitic mass] 28.2 pg Normal 27.0-31.0 [facility] Comment on above: Performed By: #### 2 [id number] #### BRENT WhiteHemo [address] [place] [address] MCHC (RBC) [Mass/Vol] 32.4 g/dL Low 33.0-37.0 [facility] Comment on above: Performed By: #### 2 [id number] #### BRENT WhiteHemo [address] [place] [address] MCV (RBC) [Entitic vol] 87.0 fL Normal 78.0-100.0 [facility] Comment on above: Performed By: #### 2 [id number] #### BRENT WhiteHemo [address] [place] [address] Platelet mean volume (Bld) [Entitic vol] 7.6 fL Normal 7.4-11.0 [facility] Comment on above: Performed By: #### 2 [id number] #### BRENT WhiteHemo [facility] [place] [address] Platelets (Bld) [#/Vol] 357 E3/mcL Normal 130-400 [facility] Comment on above: Performed By: #### 2 [id number] #### BRENT WhiteHemo [address] [place] [address] RBC (Bld) [#/Vol] 4.55 E6/mcL Normal 3.90-5.40 [facility] Comment on above: Performed By: #### 2 [id number] #### BRENT RemHemo [address] [place] [address] WBC (Bld) [#/Vol] 11.5 E3/mcL High 3.6-11.0 [facility] Comment on above: Performed By: #### 2 [id number] #### BRENT RemHemo [address] [place] [address] eGFRon 03-01-2018 GFR/1.73 sq M predicted among non-blacks MDRD (S/P/Bld) [Vol rate/Area] mL/min/{1.73_m2} Normal [facility] Comment on above: Order Comment: Order added by Discern Expert. Performed By: #### 1 [id number] #### BRENT [facility] [address] [place] [address] Vital Signs Date Time Vital Sign Value Performing Clinician Facility 11-24-2024 12:32-0400 Diastolic blood pressure 63 mm[Hg] DEFINED NOT [facility] 11-24-2024 12:32-0400 Heart rate 68 /min DEFINED [facility] 11-24-2024 12:32-0400 Respiratory rate 16 /min DEFINED NOT [facility] 11-24-2024 12:32-0400 Systolic blood pressure 98 mm[Hg] DEFINED [facility] 11-24-2024 10:31-0400 Body height 167.64 cm DEFINED [facility] 11-24-2024 10:31-0400 Body temperature 97.1 [degF] DEFINED [facility] 11-24-2024 10:31-0400 SaO2% (BldA) [Mass fraction] 98 % DEFINED [facility] 11-24-2024 09:40-0400 Body height 167.64 cm DEFINED [facility] 11-24-2024 09:40-0400 Body mass index (BMI) [Ratio] 37.1 kg/m2 DEFINED [facility] 11-24-2024 09:40-0400 Body weight 104.43 kg DEFINED [facility] 11-24-2024 09:40-0400 Diastolic blood pressure 66 mm[Hg] DEFINED NOT [facility] 11-24-2024 09:40-0400 Systolic blood pressure 105 mm[Hg] DEFINED NOT [facility] 11-10-2024 13:12-0400 Body temperature 97.3 [degF] DEFINED NOT [facility] 11-10-2024 13:12-0400 Diastolic blood pressure 57 mm[Hg] DEFINED NOT [facility] 11-10-2024 13:12-0400 Heart rate 74 /min DEFINED NOT [facility] 11-10-2024 13:12-0400 Respiratory rate 16 /min DEFINED NOT [facility] 11-10-2024 13:12-0400 SaO2% (BldA) [Mass fraction] 99 % DEFINED [facility] 11-10-2024 13:12-0400 Systolic blood pressure 110 mm[Hg] DEFINED [facility] 11-10-2024 10:43-0400 Body height 167.64 cm DEFINED [facility] 11-10-2024 09:55-0400 Body height 167.64 cm DEFINED [facility] 11-10-2024 09:55-0400 Body mass index (BMI) [Ratio] 36.3 kg/m2 DEFINED [facility] 11-10-2024 09:55-0400 Body weight 102.17 kg DEFINED [facility] 11-10-2024 09:55-0400 Diastolic blood pressure 68 mm[Hg] DEFINED NOT [facility] 11-10-2024 09:55-0400 Systolic blood pressure 105 mm[Hg] DEFINED NOT [facility] 10-26-2024 09:55-0400 Body height 167.64 cm DEFINED [facility] 10-26-2024 09:53-0400 Body mass index (BMI) [Ratio] 36.3 kg/m2 DEFINED [facility] 10-26-2024 09:53-0400 Body weight 102.17 kg DEFINED [facility] 10-26-2024 09:53-0400 Diastolic blood pressure 75 mm[Hg] DEFINED [facility] 10-26-2024 09:53-0400 Systolic blood pressure 109 mm[Hg] DEFINED NOT [facility] 09-28-2024 09:32-0400 Body mass index (BMI) [Ratio] 35.9 kg/m2 DEFINED NOT [facility] 09-28-2024 09:32-0400 Body weight 101.15 kg DEFINED NOT [facility] 09-28-2024 09:32-0400 Diastolic blood pressure 69 mm[Hg] DEFINED NOT [facility] 09-28-2024 09:32-0400 Systolic blood pressure 103 mm[Hg] DEFINED NOT [facility] 08-31-2024 09:40-0400 Body mass index (BMI) [Ratio] 34.5 kg/m2 DEFINED [facility] 08-31-2024 09:40-0400 Body weight 97.18 kg DEFINED [facility] 08-31-2024 09:40-0400 Diastolic blood pressure 64 mm[Hg] DEFINED NOT [facility] 08-31-2024 09:40-0400 Systolic blood pressure 102 mm[Hg] DEFINED [facility] 08-29-2024 14:07-0400 Body temperature 98.8 [degF] DEFINED NOT [facility] 08-29-2024 14:07-0400 Diastolic blood pressure 68 mm[Hg] DEFINED NOT [facility] 08-29-2024 14:07-0400 Heart rate 83 /min DEFINED NOT [facility] 08-29-2024 14:07-0400 Respiratory rate 16 /min DEFINED NOT [facility] 08-29-2024 14:07-0400 Systolic blood pressure 116 mm[Hg] DEFINED [facility] 08-29-2024 13:51-0400 Body height 167.64 cm DEFINED [facility] 08-29-2024 13:51-0400 Body mass index (BMI) [Ratio] 34.3 kg/m2 DEFINED [facility] 08-29-2024 13:51-0400 Body weight 96.6 kg DEFINED NOT [facility] 08-04-2024 09:20-0500 Body height 167.64 cm DEFINED [facility] 08-04-2024 09:20-0500 Body mass index (BMI) [Ratio] 33.5 kg/m2 DEFINED NOT [facility] 08-04-2024 09:20-0500 Body weight 94.34 kg DEFINED NOT [facility] 08-04-2024 09:20-0500 Diastolic blood pressure 50 mm[Hg] DEFINED NOT [facility] 08-04-2024 09:20-0500 Systolic blood pressure 95 mm[Hg] DEFINED NOT [facility] 07-11-2024 14:22-0500 Body mass index (BMI) [Ratio] 32.8 kg/m2 DEFINED NOT [facility] 07-11-2024 14:22-0500 Body weight 92.07 kg DEFINED NOT [facility] 07-11-2024 14:22-0500 Diastolic blood pressure 63 mm[Hg] DEFINED NOT [facility] 07-11-2024 14:22-0500 Systolic blood pressure 97 mm[Hg] DEFINED NOT [facility] 06-09-2024 11:31-0500 Body mass index (BMI) [Ratio] 32.8 kg/m2 DEFINED NOT [facility] 06-09-2024 11:31-0500 Body weight 92.07 kg DEFINED NOT [facility] 06-09-2024 11:31-0500 Diastolic blood pressure 73 mm[Hg] DEFINED NOT [facility] 06-09-2024 11:31-0500 Systolic blood pressure 111 mm[Hg] DEFINED NOT [facility] 03-09-2024 12:31-0400 Body height 167.6 cm Sierra ObshawnShopsenseshawn DO Work Phone: [facility] 03-09-2024 12:31-0400 Body mass index (BMI) [Ratio] 33.25 kg/m2 Sierra Oberhauser DO Work Phone: [facility] 03-09-2024 12:31-0400 Body weight 93.44 kg Sierra Oberhauser DO Work Phone: [facility] 03-09-2024 12:31-0400 Diastolic blood pressure 72 mm[Hg] Sierra OberShopsenseer DO Work Phone: [facility] 03-09-2024 12:31-0400 Heart rate 89 /min Sierra Santos DO Work Phone: [facility] 03-09-2024 12:31-0400 Systolic blood pressure 107 mm[Hg] Sierra Santos DO Work Phone: [facility] 12-08-2023 15:38-0400 Body height 167.6 cm Jacquelyn Walker MD Work Phone: [facility] 12-08-2023 15:38-0400 Body mass index (BMI) [Ratio] 37.61 kg/m2 Jacquelyn Walker MD Work Phone: [facility] 12-08-2023 15:38-0400 Body weight 105.69 kg Jacquelyn Walker MD Work Phone: [facility] 12-08-2023 15:38-0400 Diastolic blood pressure 64 mm[Hg] Jacquelyn Walker MD Work Phone: [facility] 12-08-2023 15:38-0400 Systolic blood pressure 112 mm[Hg] Jacquelyn Walker MD Work Phone: [facility] 04-09-2023 13:57-0500 Body height 167.6 cm Jimena Gracia DO Work Phone: [facility] 04-09-2023 13:57-0500 Body mass index (BMI) [Ratio] 45.84 kg/m2 Jimena Gracia DO Work Phone: [facility] 04-09-2023 13:57-0500 Body weight 128.82 kg Jimena Gracia DO Work Phone: [facility] 04-09-2023 13:57-0500 Diastolic blood pressure 79 mm[Hg] Jimena Gracia DO Work Phone: [facility] 04-09-2023 13:57-0500 Heart rate 92 /min Jimena Gracia DO Work Phone: [facility] 04-09-2023 13:57-0500 SaO2% (BldA) [Mass fraction] 99 % Jimena Gracia DO Work Phone: [employer] 04-09-2023 13:57-0500 Systolic blood pressure 129 mm[Hg] Jimena Gracia DO Work Phone: [employer] 03-31-2023 13:49-0400 Body height 167.6 cm Jimena Gracia DO Work Phone: [employer] 03-31-2023 13:49-0400 Body mass index (BMI) [Ratio] 46.39 kg/m2 Jimena Gracia DO Work Phone: [employer] 03-31-2023 13:49-0400 Body weight 130.36 kg Jimena Gracia DO Work Phone: [employer] 03-31-2023 13:49-0400 Diastolic blood pressure 93 mm[Hg] Jimena Gracia DO Work Phone: [employer] 03-31-2023 13:49-0400 Heart rate 81 /min Jimena Gracia DO Work Phone: [employer] 03-31-2023 13:49-0400 SaO2% (BldA) [Mass fraction] 98 % Jimena Gracia DO Work Phone: [employer] 03-31-2023 13:49-0400 Systolic blood pressure 144 mm[Hg] Jimena Gracia DO Work Phone: [employer] 03-12-2023 11:38-0400 Body temperature 98.6 [degF] Jimena Gracia DO Work Phone: [employer] 03-12-2023 11:38-0400 Diastolic blood pressure 87 mm[Hg] Jimena Gracia DO Work Phone: [employer] 03-12-2023 11:38-0400 Heart rate 66 /min Jimena Gracia DO Work Phone: [employer] 03-12-2023 11:38-0400 Respiratory rate 18 /min Jimena Gracia DO Work Phone: [employer] 03-12-2023 11:38-0400 SaO2% (BldA) [Mass fraction] 98 % Jimena Gracia DO Work Phone: [employer] 03-12-2023 11:38-0400 Systolic blood pressure 137 mm[Hg] Jimena Gracia DO Work Phone: [employer] 03-12-2023 05:40-0400 Body mass index (BMI) [Ratio] 50.91 kg/m2 Jimena Gracia DO Work Phone: [employer] 03-12-2023 05:40-0400 Body weight 143.06 kg Jimena Gracia DO Work Phone: [employer] 03-11-2023 10:57-0400 Body height 167.6 cm Jimena Gracia DO Work Phone: [employer] 02-19-2023 11:20-0400 Body height 167.6 cm Jimena Gracia DO Work Phone: [employer] 02-19-2023 11:20-0400 Body mass index (BMI) [Ratio] 49.55 kg/m2 Jimena Gracia DO Work Phone: [employer] 02-19-2023 11:20-0400 Body weight 139.25 kg Jimena Gracia DO Work Phone: [employer] 02-19-2023 11:20-0400 Diastolic blood pressure 85 mm[Hg] Jimena Gracia DO Work Phone: [employer] 02-19-2023 11:20-0400 Heart rate 83 /min Jimena Gracia DO Work Phone: [employer] 02-19-2023 11:20-0400 SaO2% (BldA) [Mass fraction] 86 % Jimena Basil DO Work Phone: [employer] 02-19-2023 11:20-0400 Systolic blood pressure 139 mm[Hg] Jimena Gracia DO Work Phone: [employer] 01-22-2023 16:05-0400 Body height 167.6 cm Sierra Santos DO Work Phone: [facility] 01-22-2023 16:05-0400 Body mass index (BMI) [Ratio] 49.87 kg/m2 Sierra Oberhauser DO Work Phone: [facility] 01-22-2023 16:05-0400 Body weight 140.16 kg Sierra Oberhauser DO Work Phone: [facility] 01-22-2023 16:05-0400 Diastolic blood pressure 75 mm[Hg] Sierra Oberhauser DO Work Phone: [facility] 01-22-2023 16:05-0400 Heart rate 74 /min Sierra Oberhauser DO Work Phone: [facility] 01-22-2023 16:05-0400 Systolic blood pressure 127 mm[Hg] Sierra Oberhauser DO Work Phone: [facility] 12-01-2022 15:00-0400 Body height 167.64 cm Sierra L Oberhauser Work Phone: [facility] [address] Work Phone: 12-01-2022 15:00-0400 Body mass index (BMI) [Ratio] 50.24 kg/m2 Sierra L Oberhauser Work Phone: [facility] [address] Work Phone: 12-01-2022 15:00-0400 Body surface area Derived from formula 2.41 m2 Sierra L Oberhauser Work Phone: [facility] [address] Work Phone: 12-01-2022 15:00-0400 Body weight 141.2 kg Sierra L Oberhauser Work Phone: [facility] [address] Work Phone: 12-01-2022 15:00-0400 Diastolic blood pressure 72 mm[Hg] Sierra L Oberhauser Work Phone: [address] Work Phone: 12-01-2022 15:00-0400 Systolic blood pressure 124 mm[Hg] Sierra L Oberhauser Work Phone: [address] Work Phone: 10-30-2022 14:19-0400 Body height 167.6 cm Shavonne Suzanna RADIOGRAPHER ANGIOGRAM-TELETYPESETTER MONITOR Work Phone: [facility] 10-30-2022 14:19-0400 Body mass index (BMI) [Ratio] 51.49 kg/m2 Shavonne Suzanna RADIOGRAPHER ANGIOGRAM-TELETYPESETTER MONITOR Work Phone: [facility] 10-30-2022 14:19-0400 Body temperature 99 [degF] Shavonne Suzanna RADIOGRAPHER ANGIOGRAM-TELETYPESETTER MONITOR Work Phone: [facility] 10-30-2022 14:19-0400 Body weight 144.7 kg Shavonne Suzanna RADIOGRAPHER ANGIOGRAM-TELETYPESETTER MONITOR Work Phone: [facility] 10-30-2022 14:19-0400 Diastolic blood pressure 76 mm[Hg] Shavonne Suzanna RADIOGRAPHER ANGIOGRAM-TELETYPESETTER MONITOR Work Phone: [facility] 10-30-2022 14:19-0400 Heart rate 81 /min Shavonne Suzanna RADIOGRAPHER ANGIOGRAM-TELETYPESETTER MONITOR Work Phone: [facility] 10-30-2022 14:19-0400 SaO2% (BldA) [Mass fraction] 96 % Shavonne Suzanna RADIOGRAPHER ANGIOGRAM-TELETYPESETTER MONITOR Work Phone: [facility] 10-30-2022 14:19-0400 Systolic blood pressure 118 mm[Hg] Shavonne Suzanna RADIOGRAPHER ANGIOGRAM-TELETYPESETTER MONITOR Work Phone: [facility] 10-03-2022 15:16-0400 Body height 167.64 cm Sierra L Oberhauser Work Phone: [facility] and [address] [place] [address] Work Phone: 10-03-2022 15:16-0400 Body mass index (BMI) [Ratio] 51.24 kg/m2 Sierra L Oberhauser Work Phone: [facility] and [address] Work Phone: 10-03-2022 15:16-0400 Body surface area Derived from formula 2.43 m2 Sierra L Oberhauser Work Phone: [facility] and [address] Work Phone: 10-03-2022 15:16-0400 Body weight 143.99 kg Sierra L Oberhauser Work Phone: [facility] and [address] Work Phone: 10-03-2022 15:16-0400 Diastolic blood pressure 76 mm[Hg] Sierra L Oberhauser Work Phone: [facility] and [address] Work Phone: 10-03-2022 15:16-0400 Heart rate 100 /min Sierra L Oberhauser Work Phone: [facility] and [address] Work Phone: 10-03-2022 15:16-0400 SaO2% (BldA) [Mass fraction] 97 % Sierra L Oberhauser Work Phone: [facility] and [address] Work Phone: 10-03-2022 15:16-0400 Systolic blood pressure 108 mm[Hg] Sierra L Oberhauser Work Phone: [facility] and [address] Work Phone: 02-28-2022 15:38-0400 Body height 167.6 cm Anthony Yanez MD Work Phone: [facility] 02-28-2022 15:38-0400 Body mass index (BMI) [Ratio] 51.81 kg/m2 Anthony Yanez MD Work Phone: [facility] 02-28-2022 15:38-0400 Body weight 145.6 kg Anthony Yanez MD Work Phone: [facility] 02-28-2022 15:38-0400 Diastolic blood pressure 82 mm[Hg] Anthony Yanez MD Work Phone: [facility] 02-28-2022 15:38-0400 Heart rate 87 /min Anthony Yanez MD Work Phone: [facility] 02-28-2022 15:38-0400 Systolic blood pressure 140 mm[Hg] Anthony Yanez MD Work Phone: [facility] 02-27-2022 21:15-0400 Diastolic blood pressure 82 mm[Hg] Avg Carlos A [facility] 02-27-2022 21:15-0400 Heart rate 86 /min Avg Carlos A [facility] 1 [facility] 02-27-2022 21:15-0400 SaO2% (BldA) [Mass fraction] 97 % Avg Carlos A Gal [facility] 1 [facility] 02-27-2022 21:15-0400 Systolic blood pressure 117 mm[Hg] Avg Carlos A [facility] 1 [facility] 01-24-2022 22:29-0400 Diastolic blood pressure 72 mm[Hg] Avg Carlos A Gal [facility] 4 [facility] 01-24-2022 22:29-0400 Systolic blood pressure 116 mm[Hg] Avg Carlos A [facility] 4 [facility] 12-30-2021 14:50-0400 Body height 167.6 cm Cassidy Thomasdeanna POLANCO Work Phone: [facility] 12-30-2021 14:50-0400 Body mass index (BMI) [Ratio] 51.81 kg/m2 Cassidy Thomas CNP Work Phone: [facility] 12-30-2021 14:50-0400 Body weight 145.6 kg Cassidy Thomasdeanna POLANCO Work Phone: [facility] 12-24-2021 15:18-0400 Body height 167.6 cm Shavonne Briseno APRN-TELETYPESETTER MONITOR Work Phone: [employer] [facility] 12-24-2021 15:18-0400 Body mass index (BMI) [Ratio] 52.39 kg/m2 Shavonne Suzanna RADIOGRAPHER ANGIOGRAM-TELETYPESETTER MONITOR Work Phone: [employer] [facility] 12-24-2021 15:18-0400 Body weight 147.24 kg Shavonne Suzanna RADIOGRAPHER ANGIOGRAM-TELETYPESETTER MONITOR Work Phone: [employer] [facility] 12-24-2021 15:18-0400 Diastolic blood pressure 86 mm[Hg] Shavonne Suzanna RADIOGRAPHER ANGIOGRAM-TELETYPESETTER MONITOR Work Phone: [employer] 12-24-2021 15:18-0400 Heart rate 85 /min Shavonne Suzanna RADIOGRAPHER ANGIOGRAM-TELETYPESETTER MONITOR Work Phone: [employer] [facility] 12-24-2021 15:18-0400 Respiratory rate 16 /min Shavonne Suzanna RADIOGRAPHER ANGIOGRAM-TELETYPESETTER MONITOR Work Phone: [employer] [facility] 12-24-2021 15:18-0400 SaO2% (BldA) [Mass fraction] 97 % Shavonne Suzanna RADIOGRAPHER ANGIOGRAM-TELETYPESETTER MONITOR Work Phone: [employer] 12-24-2021 15:18-0400 Systolic blood pressure 130 mm[Hg] Shavonne Suzanna RADIOGRAPHER ANGIOGRAM-TELETYPESETTER MONITOR Work Phone: [employer] 12-05-2021 13:42-0400 Body height 167.64 cm Sierra Yousif Oberhauser Work Phone: [facility] and [address] Work Phone: 12-05-2021 13:42-0400 Body mass index (BMI) [Ratio] 51.81 kg/m2 Sierra L Oberhauser Work Phone: [facility] and [address] Work Phone: 12-05-2021 13:42-0400 Body surface area Derived from formula 2.45 m2 Sierra L Oberhauser Work Phone: [facility]apwtnzf[facility] and [address] Work Phone: 12-05-2021 13:42-0400 Body weight 145.61 kg Sierra Dodd Oberhauser Work Phone: [facility] and [address] Work Phone: 12-05-2021 13:42-0400 Diastolic blood pressure 74 mm[Hg] Sierra L Oberhauser Work Phone: [facility]Fzllghflxz[facility]va and [address] Work Phone: 12-05-2021 13:42-0400 Heart rate 71 /min Sierra L Oberhauser Work Phone: [facility]qjbafkvga[facility] and [address] Work Phone: 12-05-2021 13:42-0400 SaO2% (BldA) [Mass fraction] 98 % Sierra Dodd Oberhauser Work Phone: [facility]Hbmitsmncw[facility]uhp and [address] Work Phone: 12-05-2021 13:42-0400 Systolic blood pressure 136 mm[Hg] Sierra L Oberhauser Work Phone: [employer] [facility] [address] Work Phone: 11-28-2021 13:40-0400 Body height 167.64 cm Sierra Yousif Oberhauser Work Phone: [facility] Work Phone: 11-28-2021 13:40-0400 Body mass index (BMI) [Ratio] 52.62 kg/m2 Sierra L Oberhauser Work Phone: [facility] Work Phone: 11-28-2021 13:40-0400 Body surface area Derived from formula 2.46 m2 Sierra L Oberhauser Work Phone: [facility] Work Phone: 11-28-2021 13:40-0400 Body weight 147.87 kg Sierra L Oberhauser Work Phone: [facility] Work Phone: 11-28-2021 13:40-0400 Diastolic blood pressure 82 mm[Hg] Sierra L Oberhauser Work Phone: [facility] Work Phone: 11-28-2021 13:40-0400 Heart rate 84 /min Sierra L Oberhauser Work Phone: [facility] Work Phone: 11-28-2021 13:40-0400 Systolic blood pressure 139 mm[Hg] Sierra L Oberhauser Work Phone: [facility] Work Phone: 11-23-2021 20:30-0400 Diastolic blood pressure 87 mm[Hg] Sierra Oberhauser Other Phone: [facility] 11-23-2021 20:30-0400 Heart rate 79 /min Sierra Oberhauser Other Phone: [facility] 11-23-2021 20:30-0400 Respiratory rate 17 /min Sierra Oberhauser Other Phone: [facility] 11-23-2021 20:30-0400 SaO2% (BldA) [Mass fraction] 95 % Sierra Oberhauser Other Phone: [facility] 11-23-2021 20:30-0400 Systolic blood pressure 116 mm[Hg] Sierra Oberhauser Other Phone: [facility] 11-23-2021 17:59-0400 Body height 167.6 cm Sierra Oberhauser Other Phone: [facility] 11-23-2021 17:59-0400 Body temperature 98.78 [degF] Sierra Oberhauser Other Phone: [facility] 11-23-2021 17:59-0400 Body weight 139 kg Sierra Oberhauser Other Phone: [facility] 10-30-2021 14:58-0400 Body height 167.64 cm Sierra L Oberhauser Work Phone: [facility] Work Phone: 10-30-2021 14:58-0400 Body mass index (BMI) [Ratio] 52.27 kg/m2 Sierra L Oberhauser Work Phone: [facility] Work Phone: 10-30-2021 14:58-0400 Body surface area Derived from formula 2.45 m2 Sierra L Oberhauser Work Phone: [facility] Work Phone: 10-30-2021 14:58-0400 Body weight 146.9 kg Sierra L Oberhauser Work Phone: [facility] Work Phone: 10-30-2021 14:58-0400 Diastolic blood pressure 80 mm[Hg] Sierra L Oberhauser Work Phone: [facility] Work Phone: 10-30-2021 14:58-0400 Systolic blood pressure 120 mm[Hg] Sierra L Oberhauser Work Phone: [facility] Work Phone: 10-29-2021 14:42-0400 Body height 167.64 cm Sierra L Oberhauser Work Phone: [facility] Work Phone: 10-29-2021 14:42-0400 Body mass index (BMI) [Ratio] 52.3 kg/m2 Sierra L Oberhauser Work Phone: [facility] Work Phone: 10-29-2021 14:42-0400 Body surface area Derived from formula 2.46 m2 Sierra L Oberhauser Work Phone: [facility] Work Phone: 10-29-2021 14:42-0400 Body weight 146.97 kg Sierra L Oberhauser Work Phone: [facility] Work Phone: 10-29-2021 14:42-0400 Diastolic blood pressure 79 mm[Hg] Sierra L Oberhauser Work Phone: [facility] Work Phone: 10-29-2021 14:42-0400 Heart rate 79 /min Sierra L Oberhauser Work Phone: [facility] Work Phone: 10-29-2021 14:42-0400 Systolic blood pressure 125 mm[Hg] Sierra L Oberhauser Work Phone: [facility] Work Phone: 10-25-2021 14:11-0400 Body mass index (BMI) [Ratio] 51.68 kg/m2 Marcia Currie [facility] 10-25-2021 14:11-0400 Body weight 145.24 kg Marcia Currie [facility] 09-03-2021 13:39-0400 Body height 167.64 cm Sierra L Oberhauser Work Phone: [facility] Work Phone: 09-03-2021 13:39-0400 Body mass index (BMI) [Ratio] 51.65 kg/m2 Sierra L Oberhauser Work Phone: [facility] Work Phone: 09-03-2021 13:39-0400 Body surface area Derived from formula 2.44 m2 Sierra L Oberhauser Work Phone: [facility] Work Phone: 09-03-2021 13:39-0400 Body weight 145.15 kg Sierra L Oberhauser Work Phone: [facility] Work Phone: 09-03-2021 13:39-0400 Diastolic blood pressure 85 mm[Hg] Sierra L Oberhauser Work Phone: [facility] Work Phone: 09-03-2021 13:39-0400 Heart rate 77 /min Sierra L Oberhauser Work Phone: [facility] Work Phone: 09-03-2021 13:39-0400 Systolic blood pressure 137 mm[Hg] Sierra L Oberhauser Work Phone: [facility] Work Phone: 02-28-2021 14:32-0400 Body height 167.64 cm Sierra L Oberhauser Work Phone: [facility] Work Phone: 02-28-2021 14:32-0400 Body mass index (BMI) [Ratio] 53.49 kg/m2 Sierra L Oberhauser Work Phone: [facility] Work Phone: 02-28-2021 14:32-0400 Body surface area Derived from formula 2.48 m2 Sierra L Oberhauser Work Phone: [facility] Work Phone: 02-28-2021 14:32-0400 Body temperature 98.6 [degF] Sierra L Oberhauser Work Phone: [facility] Work Phone: 02-28-2021 14:32-0400 Body weight 150.32 kg Sierra L Oberhauser Work Phone: [facility] Work Phone: 02-28-2021 14:32-0400 Diastolic blood pressure 95 mm[Hg] Sierra L Oberhauser Work Phone: [facility] Work Phone: 02-28-2021 14:32-0400 Heart rate 82 /min Sierra L Oberhauser Work Phone: [facility] Work Phone: 02-28-2021 14:32-0400 SaO2% (BldA) [Mass fraction] 97 % Sierra Dodd Oberhauser Work Phone: [facility] Work Phone: 02-28-2021 14:32-0400 Systolic blood pressure 152 mm[Hg] Sierra L Oberhauser Work Phone: [facility] Work Phone: 12-28-2020 09:09-0400 Body height 167.6 cm Rajiv Kemp MD Work Phone: [facility] 12-28-2020 09:09-0400 Body mass index (BMI) [Ratio] 54.07 kg/m2 Rajiv Kemp MD Work Phone: [facility] 12-28-2020 09:09-0400 Body temperature 97.3 [degF] Rajiv Kemp MD Work Phone: [facility] 12-28-2020 09:09-0400 Body weight 151.96 kg Rajiv Kemp MD Work Phone: [facility] 12-28-2020 09:09-0400 Diastolic blood pressure 72 mm[Hg] Rajiv Kemp MD Work Phone: [facility] 12-28-2020 09:09-0400 Heart rate 86 /min Rajiv Kemp MD Work Phone: [facility] 12-28-2020 09:09-0400 SaO2% (BldA) [Mass fraction] 98 % Rajiv Kemp MD Work Phone: [facility] 12-28-2020 09:09-0400 Systolic blood pressure 148 mm[Hg] Rajiv Kemp MD Work Phone: [facility] 10-25-2020 10:57-0400 Body height 165.1 cm Sierra Dodd Oberhauser Work Phone: [facility] Work Phone: 10-25-2020 10:57-0400 Body mass index (BMI) [Ratio] 52.75 kg/m2 Sierra Yousif Oberhauser Work Phone: [facility] Work Phone: 10-25-2020 10:57-0400 Body surface area Derived from formula 2.41 m2 Sierra Dodd Oberhauser Work Phone: [facility] Work Phone: 10-25-2020 10:57-0400 Body temperature 97.5 [degF] Sierra L Oberhauser Work Phone: [facility] Work Phone: 10-25-2020 10:57-0400 Body weight 143.79 kg Sierra L Oberhauser Work Phone: [facility] Work Phone: 10-25-2020 10:57-0400 Diastolic blood pressure 70 mm[Hg] Sierra L Oberhauser Work Phone: [facility] Work Phone: 10-25-2020 10:57-0400 Heart rate 85 /min Sierra L Oberhauser Work Phone: [facility] Work Phone: 10-25-2020 10:57-0400 Respiratory rate 16 /min Sierra L [facility]hauser [facility] Work Phone: 10-25-2020 10:57-0400 Systolic blood pressure 120 mm[Hg] Sierra L Oberhauser [facility] Work Phone: 09-11-2020 17:34-0400 BMI (Body Mass Index) 52.75 kg/m2 Sierra Oberdemarcus [facility] Work Phone: 09-11-2020 17:34-0400 Body Temperature 97.3 [degF] Sierra Santos [facility] Work Phone: 09-11-2020 17:34-0400 Body weight 143.79 kg Sierra Santos [facility] Work Phone: 09-11-2020 17:34-0400 BP Diastolic 82 mm[Hg] Sierra Santos [facility] Work Phone: 09-11-2020 17:34-0400 BP Systolic 127 mm[Hg] Sierra Oberrol [facility] Work Phone: 09-11-2020 17:34-0400 BSA (Body Surface Area) 2.41 m2 Sierra Santos [facility] Work Phone: 09-11-2020 17:34-0400 Height 165.1 cm Sierra Santos [facility] Work Phone: 09-11-2020 17:34-0400 Pulse (Heart Rate) 100 /min Sierra Santos [facility] Work Phone: 01-09-2020 16:53-0400 BMI (Body Mass Index) 49.38 kg/m2 Rosalba [facility] [address] Work Phone: 01-09-2020 16:53-0400 Body Temperature 97.5 [degF] [facility] [address] Work Phone: Comment on above: Method: Temporal 01-09-2020 16:53-0400 Body weight 138.7 kg Rosalba [facility] [address] Work Phone: 01-09-2020 16:53-0400 BP Diastolic 60 mm[Hg] Rosalba [facility] [address] Work Phone: Comment on above: Location: LUE; Position: Sitting 01-09-2020 16:53-0400 BP Systolic 122 mm[Hg] Rosalba [facility] [address] Work Phone: Comment on above: Location: LUE; Position: Sitting 01-09-2020 16:53-0400 BSA (Body Surface Area) 2.4 m2 Rosalba Thomas [facility] [address] Work Phone: 01-09-2020 16:53-0400 Height 167.59 cm Rosalba Thomas [facility] [address] Work Phone: 12-05-2019 16:22-0400 BMI (Body Mass Index) 49.42 kg/m2 Rosalba Thomas [facility] [address] Work Phone: 12-05-2019 16:22-0400 Body Temperature 97.5 [degF] Rosalba [facility] [address] Work Phone: Comment on above: Method: Temporal 12-05-2019 16:22-0400 Body weight 138.8 kg Rosalbajayna Thomas [facility] [address] Work Phone: 12-05-2019 16:22-0400 BP Diastolic 78 mm[Hg] Rosalba [facility] [address] Work Phone: Comment on above: Location: LUE; Position: Sitting 12-05-2019 16:22-0400 BP Systolic 122 mm[Hg] Rosalba [facility] [address] Work Phone: Comment on above: Location: LUE; Position: Sitting 12-05-2019 16:22-0400 BSA (Body Surface Area) 2.4 m2 Rosalba [facility] [address] Work Phone: 12-05-2019 16:22-0400 Height 167.59 cm Rosalba [facility] [address] Work Phone: 11-07-2019 16:44-0400 BMI (Body Mass Index) 50.23 kg/m2 Rosalba [facility] [address] Work Phone: 11-07-2019 16:44-0400 Body Temperature 97.3 [degF] Rosalba [facility] [address] Work Phone: Comment on above: Method: Temporal 11-07-2019 16:44-0400 Body weight 141.07 kg Rosalba [facility] [address] Work Phone: 11-07-2019 16:44-0400 BP Diastolic 74 mm[Hg] Rosalba [facility] [address] Work Phone: Comment on above: Location: LUE; Position: Sitting 11-07-2019 16:44-0400 BP Systolic 124 mm[Hg] [facility] [address] Work Phone: Comment on above: Location: LUE; Position: Sitting 11-07-2019 16:44-0400 BSA (Body Surface Area) 2.41 m2 [facility]ba [facility] [address] Work Phone: 11-07-2019 16:44-0400 Height 167.59 cm [facility] [address] Work Phone: 11-26-2018 05:05-0400 Body weight 127.4616 kg [facility] Comment on above: Performed By: #### [id number] #### BRENT Rui [facility] [place] [address] Encounters Encounter Date Encounter Type Care Provider Facility Start: 12-07-2024 ambulatory Luisa Curiel NP Facil ity:[facility] Start: 12-05-2024 ambulatory No Primary Car e Physician Facility:[facility] Start: 11-24-2024 End: 11-24-[address] Isabel Luz MD -[facility] Work Phone: Start: 11-24-2024 End: 11-24-2024 ambulatory DEFINED NOT [facility] Work Phone: Start: 11-17-2024 End: 11-17-2024 ambulatory NO PRIMARY CARE [facility] Start: 11-10-2024 End: 11-10-2024 Patient encounter procedure Jocelyn Malcolm CNM -[facility] Work Phone: Start: 11-10-2024 End: 11-10-2024 ambulatory DEFINED NOT [facility] Work Phone: Start: 10-26-2024 End: 10-26-[address] Adelaida Burnett DO -[facility] Work Phone: Start: 10-26-2024 End: 10-26-2024 ambulatory DEFINED NOT [facility] Work Phone: Start: 10-26-2024 End: 10-26-2024 ambulatory No Primary Care Physician Facility:[facility] Start: 10-18-2024 End: 10-18-2024 ambulatory SAUL Antoine FALLON [facility] Start: 10-14-2024 ambulatory Isabel Arzola lity:[facility] Start: 09-28-2024 End: 09-28-[address] Isabel Luz MD -[facility] Work Phone: Start: 09-28-2024 End: 09-28-2024 ambulatory Isabel Luz Facility:[facility] Start: 09-28-2024 End: 09-28-2024 ambulatory Isabel Luz Facility:[facility] Start: 08-31-2024 End: 08-31-2024 Patient encounter procedure Luisa DONOVAN -[facility] Work Phone: Start: 08-31-2024 End: 08-31-2024 ambulatory No Primary Care Physician Facility:[facility] Start: 08-30-2024 ambulatory Isabel Arzola lity:[facility] Start: 08-30-2024 Non-patient / Non-visit Dr. Ricrado Luz MD -[facility] Start: 08-29-2024 End: 08-29-2024 ambulatory DEFINED NOT [facility] Work Phone: Start: 08-29-2024 End: 08-29-[address] Isabel Luz MD -[facility] Work Phone: Start: 08-25-2024 End: 08-25-2024 ambulatory ADELAIDA Garcia [facility] Start: 08-11-2024 End: 08-11-2024 ambulatory [facility] Radha [facility] Start: 08-04-2024 End: 08-04-[address] Isabel Luz MD -[facility] Work Phone: Start: 08-04-2024 End: 08-04-2024 ambulatory DEFINED NOT [facility] Work Phone: Start: 07-11-2024 End: 07-11-[address] Adelaida Burnett DO -[facility] Work Phone: Start: 07-11-2024 End: 07-11-2024 ambulatory Adelaida Burnett Facility:[facility] Start: 06-09-2024 End: 06-09-2024 Patient encounter procedure Jocelyn Malcolm CNM -Laboratory, Specimen Work Phone: Start: 06-09-2024 End: 06-09-2024 Patient encounter procedure Jocelyn Malcolm CNEdi -[facility] Work Phone: Start: 06-09-2024 End: 06-09-2024 ambulatory Jocelyn Malcolm Facility:[facility] Start: 06-09-2024 End: 06-09-2024 ambulatory Jocelyn Malcolm Facility:[facility] Start: 05-17-2024 End: 05-17-2024 Emergency department patient visit [facility] Start: 05-13-2024 [facility]-patient / [facility] Start: 05-13-2024 End: 05-13-2024 ambulatory [facility] Start: 05-06-2024 End: 05-06-2024 ambulatory [facility] Start: 03-09-2024 End: 03-09-2024 Office outpatient visit 15 minutes [facility] Work Phone: [facility] Comment on above: Attention deficit hy peractivity disorder (ADHD), combined type (Primary Dx) Start: 03-09-2024 End: 03-09-2024 ambulatory [facility] Start: 03-07-2024 End: 03-07-2024 ambulatory [facility] Start: 12-08-2023 End: 12-08-2023 Patient encounter status Jacquelyn Walker MD Work Phone: [facility] Start: 12-08-2023 End: 12-08-2023 Periodic preventive med est patient 18-39 yrs Jacquelyn Walker MD Work Phone: [facility] Comment on above: Encounter for gyneco logical examination without abnormal finding; Encounter for screening for cervical cancer Start: 12-08-2023 End: 12-08-2023 ambulatory [facility] Start: 12-08-2023 End: 12-08-2023 Encounter for gynecological examination (general) (routine) without abnormal findings [facility] Start: 11-26-2023 End: 11-26-2023 Office outpatient visit 15 minutes Sierra Santos DO Work Phone: [facility] Comment on above: Attention deficit hy peractivity disorder (ADHD), combined type (Primary Dx) Start: 11-26-2023 End: 11-26-2023 ambulatory [facility] Start: 08-05-2023 ambulatory [facility] Start: 08-05-2023 End: 08-05-2023 ambulatory [facility] Start: 08-05-2023 End: 08-05-2023 Encounter for antibody response examination [facility] Start: 04-09-2023 ambulatory [facility] Start: 04-09-2023 End: 04-09-2023 Postop follow up visit related to original px Jimena Gracia DO Work Phone: [facility] Comment on above: S/P laparoscopic sle brant gastrectomy (Primary Dx) Start: 03-31-2023 End: 03-31-2023 Postop follow up visit related to original px Jimena Gracia DO Work Phone: [facility] Comment on above: S/P gastric sleeve p rocedure (Primary Dx) Start: 03-31-2023 ambulatory SELF SELF [facility] Start: 03-11-2023 End: 03-12-2023 Encounter for other preprocedural examination JIMENA [facility] Start: 03-11-2023 End: 03-12-2023 Evaluation and management of inpatient JIMENA [facility] Start: 03-11-2023 End: 03-12-2023 Evaluation and management of inpatient Jimena Gracia DO Work Phone: [facility] Comment on above: S/P gastric sleeve p rocedure Start: 03-11-2023 End: 03-12-2023 Patient encounter status Jimena Gracia DO Work Phone: [facility] Start: 02-24-[address] [facility] Start: 02-19-2023 End: 02-19-2023 Office outpatient visit 25 minutes Jimena Gracia DO Work Phone: [facility] Comment on above: Morbid obesity with body mass index of 50 or higher (Primary Dx); Essential hypertension Start: 02-19-2023 ambulatory [facility] Start: 02-10-[address] [facility] Start: 02-03-2023 ambulatory [facility] Start: 01-22-2023 End: 01-22-2023 Office outpatient visit 15 minutes Sierra Santos DO Work Phone: [facility] Comment on above: Attention deficit hy peractivity disorder (ADHD), combined type (Primary Dx) Start: 12-09-2022 Chart Update Seirra Ivory user Work Phone: [place] Work Phone: Start: 12-04-2022 Encounter for gynecological examination (general) (routine) without abnormal findings JACQUELYN WALKER [facility] Start: 12-01-2022 Encounter for gynecological examination (general) (routine) without abnormal findings Dr. Sierra Santos Facility:[facility] Start: 12-01-2022 Periodic preventive med est patient 18-39 yrs Sierra Santos Work Phone: [place] Work Phone: Start: 12-01-[address] 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 Start: 11-17-2022 End: 11-17-2022 Subsequent hospital visit by physician Jimena Gracia DO Work Phone: [facility] Diagnostic Radiology Comment on above: Arrived Start: 10-30-2022 ambulatory SHAVONNE BRISENO [facility] Start: 10-30-2022 End: 10-30-2022 Office outpatient visit 25 minutes Shavonne Briseno RADIOGRAPHER ANGIOGRAM-TELETYPESETTER MONITOR Work Phone: [facility] Pulmonary Disease [facility] Comment on above: Obstructive sleep ap piedad (Primary Dx); Sleep related hypoxia; Overweight; Encounter for review of form with patient Start: 10-13-2022 ambulatory JOSHUA AKERS [facility] Start: 10-06-2022 ambulatory JOSHUA Garcia AKERS [facility] Start: 10-03-2022 Office outpatient vi sit 15 minutes Sierra Santos Work Phone: [address] Work Phone: Start: 10-03-2022 ambulatory Jimena Son Gracia Fa cility:[id number] Start: 09-25-2022 End: 09-25-2022 Office outpatient visit 10 minutes Sierra Santos DO Work Phone: [facility] Comment on above: Hair loss (Primary D x); Other fatigue; Screening for diabetes mellitus; Gastroesophageal reflux disease without esophagitis; Morbid obesity (CMS/HCC); PCOS (polycystic ovarian syndrome); Anxiety Start: 03-21-2022 End: 03-21-2022 ambulatory [facility] Start: 03-07-2022 End: 03-07-2022 ambulatory SIERRA SANTOS [facility] Start: 03-05-2022 AUDIT Sierra Ivory user Work Phone: [facility] Work Phone: Start: 03-03-2022 Documentation procedure Sarah Cleaning TECHNOLOGIST [facility] Start: 03-03-2022 AUDIT Sierra Ivory user Work Phone: [facility] Work Phone: Start: 02-28-2022 End: 02-28-2022 ambulatory ANTHONY YANEZ [facility] Ambulatory Start: 02-28-2022 End: 02-28-2022 Office outpatient visit 15 minutes Anthony Yanez MD Work Phone: [facility] Comment on above: Ganglion cyst (Prima ry Dx) Start: 02-27-2022 End: 02-28-2022 Clinical Support Encounter Shavonne Tomlinsonion RADIOGRAPHER ANGIOGRAM-TELETYPESETTER MONITOR Work Phone: [facility] Comment on above: Sleep apnea, unspeci fied type (Primary Dx) Start: 02-19-2022 Admission to [facility] Anthony Yanez MD Work Phone: [facility] Comment on above: Ganglion cyst (Prima ry Dx) Start: 01-31-2022 AUDIT Sierra Ivory user Work Phone: [facility] Work Phone: Start: 01-24-2022 End: 01-27-2022 Clinical Support Encounter Shavonne Erwin Suzanna RADIOGRAPHER ANGIOGRAM-TELETYPESETTER MONITOR Work Phone: [facility] Comment on above: Sleep apnea, unspeci fied type (Primary Dx); Snoring; Overweight; Insomnia, unspecified type; Morning headache; Fatigue, unspecified type; Hypersomnia, unspecified Start: 01-14-2022 End: 01-15-2022 ambulatory CASSIDY TRIPP [facility] Start: 01-10-2022 ambulatory ANTHONY YANEZ [facility] Ambulatory Start: 12-30-2021 End: 01-03-2022 ambulatory SIERRA SANTOS [facility] Amb[facility] Start: 12-30-2021 End: 12-30-2021 Office outpatient new 30 minutes Cassidy Davisck TELETYPESETTER MONITOR Work Phone: [facility] Comment on above: Ganglion cyst (Prima ry Dx) Start: 12-24-2021 End: 12-24-2021 Office outpatient new 45 minutes Shavonne Erwin Briseno RADIOGRAPHER ANGIOGRAM-TELETYPESETTER MONITOR Work Phone: [facility] Pulmonary Disease [facility] Comment on above: Sleep apnea, unspeci fied type (Primary Dx); Snoring; Overweight; Insomnia, unspecified type; Morning headache; Fatigue, unspecified type; Hypersomnia, unspecified Start: 12-18-2021 Chart Update Sierra Martinezha user Work Phone: [facility] Work Phone: Start: 12-12-2021 End: 12-12-2021 Emergency department patient visit Vi Vaishali Ramachandran [facility] Start: 12-05-2021 FUV, Provider: Leoncio Jean Baptiste, Status: Pen, Time: 1:45 PM Sierra Santos Work Phone: [facility] Work Phone: Start: 12-05-2021 Office outpatient vi sit 25 minutes Sierra Santos Work Phone: [address] Work Phone: Start: 12-05-2021 ambulatory MD LEONCIO JEAN BAPTISTE Faci lity:[id number] Start: 12-03-2021 Chart Update Sierra Ivory user Work Phone: [facility] Work Phone: Start: 11-29-2021 Chart Update Sierra Ivory user Work Phone: [facility] Work Phone: Start: 11-23-2021 End: 11-23-2021 Emergency department patient visit Prosper Renner [facility] Emergency 12 Start: 11-18-2021 End: 11-18-2021 Patient encounter procedure Joshua Akers PsyD Work Phone: [facility] Psychology Comment on above: Binge-eating disorde r, in full remission, mild (Primary Dx) Start: 11-04-2021 Patient encounter procedure Sierra Santos Work Phone: [facility] Work Phone: Start: 11-03-2021 Chart Update Sierra Ivory user Work Phone: [address] Work Phone: Start: 11-01-2021 Patient encounter procedure Sierra Orozcoer Work Phone: [facility] Work Phone: Start: 11-01-2021 DRYNDYousif, Provider: Gil Grover, Status: Pen, Time: 2:45 PM Sierra Orozcoer Work Phone: [facility] Work Phone: Start: 10-30-2021 Patient encounter procedure Sierra Santos Work Phone: [facility] Work Phone: Start: 10-30-2021 DRYNDYousif, Provider: Gil Grover, Status: Pen, Time: 2:00 PM Sierra Orozcoer Work Phone: [facility] Work Phone: Start: 10-29-2021 Office outpatient vi sit 15 minutes Sierra Santos Work Phone: [facility] Work Phone: Start: 10-25-2021 End: 10-25-2021 Subsequent hospital visit by physician Marcia Currie RD [facility] Comment on above: Arrived Start: 10-16-2021 AQUATICFU4, Provider : Deborah Russell, Status: Pen, Time: 2:45 PM Sierra Yousif José Luisjaser Work Phone: [facility] Work Phone: Start: 10-16-2021 Patient encounter procedure Sierra L Oberhauser Work Phone: [facility] Work Phone: Start: 10-15-2021 Patient encounter procedure Sierra Dodd Oberhauser Work Phone: [facility] Work Phone: Start: 10-04-2021 Patient encounter procedure Sierra Dodd Objaser Work Phone: [facility] Work Phone: Start: 09-24-2021 PTEVALALOSL, Provider : Magali Donald, Status: Pen, Time: 2:15 PM Sierra Dodd Oberhauser Work Phone: [facility] Work Phone: Start: 09-23-2021 Chart Update Sierra Dodd Oberha user Work Phone: [facility] Work Phone: Start: 09-03-2021 Office outpatient vi sit 15 minutes Sierra L Oberhauser Work Phone: [facility] Work Phone: Start: 05-23-2021 Office outpatient vi sit 15 minutes Sierra Yousif Oberhauser Work Phone: [facility] Work Phone: Start: 03-14-2021 FUV, Provider: Sierra Santos, Status: Pen, Time: 1:00 PM Sierra oYusif Oberhauser Work Phone: [facility] Work Phone: Start: 03-13-2021 Chart Update Sierra L Oberha user Work Phone: [facility] Work Phone: Start: 02-28-2021 Current tobacco non- user cad cap copd pv dm Sierra L Oberhauser Work Phone: [facility] Work Phone: Start: 01-23-2021 End: 01-23-2021 Subsequent hospital visit by physician Karen Light RD Work Phone: [facility] Comment on above: Arrived Start: 12-28-2020 End: 12-28-2020 Subsequent hospital visit by physician Rajiv Kemp MD Work Phone: [facility] [employer] Comment on above: Arrived Start: 12-28-2020 End: 12-28-2020 Office outpatient new 45 minutes Rajiv Kemp MD Work Phone: [facility] Comment on above: Morbid obesity with body mass index of 50 or higher (Primary Dx); Essential hypertension; Tachycardia; PCOS (polycystic ovarian syndrome); Gastroesophageal reflux disease, unspecified whether esophagitis present; Chronic pain of both hips; Screening for viral disease Start: 11-02-2020 Chart Update Sierra Ivory user Work Phone: [facility] [facility] [address] Work Phone: Start: 10-31-2020 Chart Update Sierra Ivory user Work Phone: [facility] [facility] [address] Work Phone: Start: 10-25-2020 Office outpatient ne w 45 minutes Sierra Santos Work Phone: [facility] [employer] Work Phone: Start: 09-11-2020 Patient encounter procedure Sierra Santos [facility] Work Phone: Start: 08-15-2020 Patient encounter procedure Sierra Santos [facility] Work Phone: Start: 07-24-2020 Patient encounter procedure Sierar Santos [facility] Work Phone: Start: 07-18-2020 Patient encounter procedure Sierra Santos [facility] Work Phone: Start: 05-30-2020 Patient encounter procedure Sierra Obereriner [facility] Work Phone: Start: 05-23-2020 Patient encounter procedure Sierra Objaser [facility] Work Phone: Start: 05-16-2020 Patient encounter procedure Sierra Objaser [facility] Work Phone: Start: 05-15-2020 Patient encounter procedure Sierra Objaser [facility] Work Phone: Start: 05-09-2020 Patient encounter procedure Sierra Objaser [facility] Work Phone: Start: 05-02-2020 Patient encounter procedure Sierra Objaser [facility] Work Phone: Start: 04-20-2020 Patient encounter procedure Sierra Objaser [facility] Work Phone: Start: 04-06-2020 Patient encounter procedure Sierra Objaser [facility] Work Phone: Start: 04-03-2020 Patient encounter procedure Sierra Objaser [facility] Work Phone: Start: 04-02-2020 Patient encounter procedure Sierra Objaser [facility] Work Phone: Start: 03-20-2020 Patient encounter procedure Sierra Objaser [facility] Work Phone: Start: 02-29-2020 Patient encounter procedure Sierra Obereriner [facility] Work Phone: Start: 01-31-2020 Patient encounter procedure Sierra Objaser [facility] Work Phone: Start: 01-09-2020 Patient encounter procedure Rosalba [address] Work Phone: Start: 12-05-2019 Patient encounter procedure Rosalba [facility] [address] Work Phone: Start: 11-07-2019 Patient encounter procedure Rosalba [facility] [address] Work Phone: Start: 07-14-2019 Patient encounter procedure Rosalba [facility] [address] Work Phone: Start: 06-22-2019 Patient encounter procedure Rosalba [facility] [address] Work Phone: Start: 06-14-2019 Patient encounter procedure Rosalba [facility] [address] Work Phone: Start: 05-04-2019 Patient encounter procedure Rosalba [facility] [address] Work Phone: Start: 04-27-2019 Patient encounter procedure Rosalba [facility] [address] Work Phone: Start: 04-22-2019 Patient encounter procedure Rosalba [facility] [address] Work Phone: Start: 04-15-2019 Patient encounter procedure Rosalba [facility] [address] Work Phone: Start: 03-30-2019 Patient encounter procedure Rosalba [facility] [address] Work Phone: Start: 03-15-2019 Patient encounter procedure Rosalba [facility] [address] Work Phone: Menarche Sierra Santos DO [facility] [address] Work Phone: Comment on above: ONSET AGE 11; Patient encounter procedure Sierra Santos Work Phone: [facility] Work Phone: End: 12-09-2022 Patient encounter procedure Sierra Orozcoer Work Phone: [facility] [address] Work Phone: Comment on above: 12/01/2022:Negative0 12/05/2019-NIL02/24/2017-NEGATIVE; Preoperative state Sierra Yousif Juanshobha triana Work Phone: [facility] [address] Work Phone: Procedures Date Procedure Procedure Detail Performing Clinician Start: 10-26-2024 Parvovirus B19 IgG level DEFINED NOT Comment on above: Negative <0.9 Equivo marvin 0.9 - 1.1 Positive >1.1 Start: 10-26-2024 Total iron binding capacity measurement DEFINED NOT Start: 09-28-2024 Serologic test for syphilis DEFINED NOT Start: 09-28-2024 Total iron binding capacity measurement DEFINED NOT Start: 08-29-2024 Urnls dip stick/tabl et reagent auto microscopy DEFINED NOT Start: 08-29-2024 Gram stain microscopy D EFINED NOT Start: 08-29-2024 End: 08-29-2024 Source specific culture DEFINED NOT Start: 08-29-2024 Ultrasonography for antepartum monitoring of fetus DEFINED NOT Start: 08-04-2024 Hepatitis C antibody measurement DEFINED NOT Comment on above: Reactive: Presumptiv e evidence of antibodies to HCV. Follow CDC recommendations for supplemental testing.Non-Reactive: Antibodies to HCV were not detected; does not exclude the possibility of exposure to HCVReactive Results are presumptive evidence of antibodies to HCV. Follow CDC recommendations for supplemental testing.Order confirmation testing: HCV Quant by PCR testing - HCVPCR #[id number] Non Reactive: < 0.8 Equivocal: >/= 0.8 to < 1.0 Reactive: >/= 1.0The CDC requires that a reactive/equivocal HCV antibody result be sent out for confirmation. HCV Quant by PCR testing. Start: 08-04-2024 Rubella IgG measurement DEFINED NOT Comment on above: Antibody Result: Int erpretationNon-Reactive: Non- ImmuneReactive: ImmuneThe following results were obtained with the [employer] Rubella IgG assay. Results from assays of other manufacturers cannot be used interchangeably. Start: 08-04-2024 Serologic test for syphilis DEFINED NOT Start: 06-09-2024 Urine culture DEFINED N OT Start: 03-09-2024 Follow-up visit Follow-up SIERRA SANTOS Start: 12-08-2023 Microscopic observat ion [Identifier] in Cervix by Cyto stain Sierra Pamshawn DO Work Phone: Start: 08-05-2023 HEPATITIS B SURFACE ANTIBODY SIERRA SANTOS Start: 08-05-2023 T-SPOT TB SIERRA MUIR Start: 03-12-2023 Basic metabolic pane l calcium total Jimena Gracia DO Work Phone: Start: 03-12-2023 Complete blood count with white cell differential, automated Jimena Mariella Gracia DO Work Phone: Start: 03-11-2023 Basic metabolic pane l calcium total Jimena Gracia DO Work Phone: Start: 03-11-2023 End: 03-11-2023 Laps gstrc rstrictiv px longitudinal gastrectomy Jimena Gracia DO Work Phone: Start: 03-11-2023 Basic metabolic pane l calcium total Jimena Gracia DO Work Phone: Start: 03-11-2023 Blood group typing, RH phenotyping Santi Varela DO Work Phone: Start: 03-11-2023 Urine test visual color cmprsn meths Jimena Gracia DO Work Phone: Start: 02-03-2023 Follow-up visit Follow-up SHAVONNE D SUZANNA Start: 12-01-2022 Microscopic observat ion [Identifier] in Cervix by Cyto stain Sierra Martinezerinshawn DO Work Phone: Start: 11-17-2022 Radiologic exam ches t 2 views Jimena Gracia DO Work Phone: Start: 02-27-2022 SLEEP STUDY (SCANNED) H istorical Provider Start: 01-24-2022 SLEEP STUDY PSG Histori marvin Provider Start: 09-20-2021 End: 09-20-2021 Psychiatric diagnostic evaluation Binge-eating disorder, mild Joshua Akers PsyD Work Phone: Comment on above: Binge-eating disorde r, mild (Primary Dx); Panic disorder without agoraphobia Start: 12-28-2020 Radiologic exam ches t 2 views Rajiv Kemp MD Work Phone: Start: 12-28-2020 Ecg routine ecg w/le ast 12 lds trcg only w/o i&r Rajiv Kemp MD Work Phone: Start: 10-30-2020 Colonoscopy Sierra Dodd José Luis norton Work Phone: Start: 01-09-2020 Quadcheck-Triple Portia ck With Inhibin Rosalba [place] Start: 01-09-2020 Ultrasound Ob Complete Rosalba [place] Start: 12-05-2019 Microscopic observat ion [Identifier] in Cervix by Cyto stain.thin prep Rosalba Castillo Start: 11-07-2019 Antibody hiv-1 Rosalba Ad air Start: 11-07-2019 Antibody rubella Rosalba [place] Start: 11-07-2019 Creatinine other source Rosalba [place] Start: 11-07-2019 Hemoglobin glycosyla valdez a1c Rosalba [place] Start: 11-07-2019 Hepatitis c antibody Br ett [place] Start: 11-07-2019 Iaad ia hepatitis b surface antigen Rosalba [place] Start: 11-07-2019 Protein total xcpt refractometry urine Rosalba Castillo Start: 11-07-2019 SYPHILIS SCREENING W ITH REFLEX Rosalba Castillo Start: 03-01-2018 Excision of uterine polyp Sierra Dodd Danielle Work Phone: Start: 03-01-2018 Hysteroscopy Sierra Dodd José Luis norton Work Phone: Comment on above: D&C; Colonoscopy Sierra Dodd Rosmery ser Work Phone: End: 03-01-2018 Excision of uterine polyp Rosalba [place] Extraction of wisdom tooth B rett [place] End: 03-01-2018 Hysteroscopy Rosalba [place] Operative procedure on wrist Rosalba [place] Comment on above: TENDON REPAIR; Plan of Treatment Date Care Activity Detail Author Start: 2056 RSV Immunization age d 60 or older (1 - 1-dose 60+ series) RSV Immunization aged 60 or older (1 - 1-dose 60+ series) [employer] Start: 02-03-2046 Zoster Vaccines (1 of 2) Zoste r Vaccines (1 of 2) [facility] Start: 12-16-2032 DTaP/Tdap/Td Vaccine s (7 - Td or Tdap) DTaP/Tdap/Td Vaccines (7 - Td or Tdap) [facility] Start: 12-16-2032 Tetanus vaccination [facility] Start: 12-07-2026 Screening for malign ant neoplasm of cervix [facility] Start: 12-01-2025 Screening for malign ant neoplasm of cervix [facility] Start: 12-12-2024 End: 12-12-2024 Patient encounter procedure 12/12/2024 3:30 PM EDT Office Visit [facility] [address] [place] [address] Jacquelyn Walker MD [address] [facility] [address] [place] [address] [facility] Start: 12-08-2024 Yearly Adult Physical Yearly Adult P hysical [facility] Start: 11-10-2024 Iv infusion therapy prophylaxis/dx ea hour THER/PROPH/DIAG IV INF ADDON [facility] Start: 11-10-2024 Iv infusion therapy/prophylaxis /dx 1st to 1 hr THER/PROPH/DIAG IV INF INIT [facility] Start: 10-26-2024 Cobalamin (Vitamin B 12) [Mass/volume] in Serum or Plasma [facility] Start: 10-26-2024 Ferritin [Mass/volum e] in Serum or Plasma [facility] Start: 10-26-2024 Iron and Iron bindin g capacity panel - Serum or Plasma [facility] Start: 08-29-2024 Source specific culture [facility] Start: 08-29-20[address] Nonstress test [facility] Start: 08-29-[address] [facility] Start: 08-29-2024 [facility] Start: 08-29-2024 Vital signs measurements [facility] Start: 08-29-[address] [facility] Start: 06-14-2024 End: 06-14-2024 Patient encounter procedure 06/14/2024 12:40 PM EST Office Visit [facility] [address] [place] [address] Sierra Santos DO [address] [facility] [place] [address] [facility] Start: 02-11-2024 Diabetes mellitus screening Diabetes Screening [facility] Start: 02-11-2024 Hemoglobin A1c measurement Benji betes: Hemoglobin A1C [facility] Start: 2024 End: 2024 Telemedicine consultation with patient 2024 9:20 AM EDT Telemedicine [facility] [address] [place] [address] Sierra Santos DO [address] [place] [address] [place] [address] [facility] Start: 01-31-2024 COVID-19 Vaccine ( season) COVID-19 Vaccine ( season) [facility] Start: 01-31-2024 Influenza vaccination Influenza Vacc ine (#1) [facility] Start: 12-08-2023 Patient encounter procedure ANNUAL, Provider: Jacquelyn Walker, Status: Pen, Time: 3:30 PM [facility] Jennifer Hernandez Work Phone: Start: 12-08-2023 End: 12-08-2023 Patient encounter procedure 12/08/2023 3:30 PM EDT Office Visit [facility] Building [address] [place] [id number] Jacquelyn Walker MD [address] [facility] [address] [place], [place] [id number] [facility] Start: 11-18-2023 Hemoglobin A1c measurement Benji betes: Hemoglobin A1C [facility] Start: 04-09-2023 End: 04-09-2023 Patient encounter procedure 04/09/2023 2:00 PM EST Office Visit [facility] Bariatric [facility] [address] [facility] [place] [address] Jimena Gracia, DO [address] [place] [address] [facility] Bariat[facility] Start: 03-24-2023 End: 03-24-2023 Patient encounter procedure 03/24/2023 10:15 AM EDT Office Visit [facility] [address] [place] [address] Jimena Gracia, DO [address] [place] [address] [facility] Start: 03-11-2023 End: 03-11-2023 Admission to same day surgery center 03/11/2023 12:30 PM EDT - 03/11/2023 3:00 PM EDT Surgery [facility] [address] [place] [address] Jimena Gracia, DO [address] [place] [address] GASTRECTOMY LONGITUDINAL (SLEEVE) ROBOTIC *1st ASST* [facility] Comment on above: GASTRECTOMY LONGITUD INAL (SLEEVE) ROBOTIC *1st ASST* Start: 03-11-2023 End: 03-11-2023 Laps gstrc rstrictiv px longitudinal gastrectomy GASTRECTOMY LONGITUDINAL (SLEEVE) ROBOTIC Morbid obesity with body mass index of 50 or higher Essential hypertension 03/11/2023 12:30 PM EDT [facility] Start: 03-11-2023 Subsequent hospital visit by physician 03/11/2023 12:30 PM EDT Hospital Encounter [facility] [address] [facility] [place] [facility] [place] [address] Jimena Gracia, DO [address] [place] [address] Morbid obesity with body mass index of 50 or higher [facility] Comment on above: Morbid obesity with body mass index of 50 or higher Start: 02-24-2023 End: 02-24-2023 Admission to establishment 02/24/2023 9:00 AM EDT Pre-Operative Nurse Assessment [facility] Pre Admission [address] [place] [address] [facility] Pre Admission Start: 02-19-2023 End: 02-20-2024 aPTT in Blood by Coagulation assay PTT Lab Routine Morbid obesity with body mass index of 50 or higher Essential hypertension Expected: 02/19/2023, Expires: 02/20/2024 [facility] Comment on above: Expected: 02/19/2023 , Expires: 02/20/2024 Start: 02-19-2023 End: 02-20-2024 Basic metabolic 2000 panel - Serum or Plasma BASIC METABOLIC PANEL Lab Routine Morbid obesity with body mass index of 50 or higher Essential hypertension Expected: 02/19/2023, Expires: 02/20/2024 [facility] Comment on above: Expected: 02/19/2023 , Expires: 02/20/2024 Start: 02-19-2023 End: 02-20-2024 CBC,PLATELETS CBC,PLATELETS Lab Routine Morbid obesity with body mass index of 50 or higher Essential hypertension Expected: 02/19/2023, Expires: 02/20/2024 [facility] Comment on above: Expected: 02/19/2023 , Expires: 02/20/2024 Start: 02-19-2023 End: 02-20-2024 Choriogonadotropin ( test) [Presence] in Urine HCG QUALITATIVE, URINE Fluids Routine Morbid obesity with body mass index of 50 or higher Essential hypertension Expected: 02/19/2023, Expires: 02/20/2024 [facility] Comment on above: Expected: 02/19/2023 , Expires: 02/20/2024 Start: 02-19-2023 End: 02-20-2024 PROTIME-INR PROTIME-INR Lab Routine Morbid obesity with body mass index of 50 or higher Essential hypertension Expected: 02/19/2023, Expires: 02/20/2024 [facility] Comment on above: Expected: 02/19/2023 , Expires: 02/20/2024 Start: 02-19-2023 End: 02-20-2024 TYPE AND SCREEN - POSSIBLE TRANSFUSION TYPE AND SCREEN - POSSIBLE TRANSFUSION Blood Bank Routine Morbid obesity with body mass index of 50 or higher Essential hypertension Expected: 02/19/2023, Expires: 02/20/2024 [facility] Comment on above: Expected: 02/19/2023 , Expires: 02/20/2024 Start: 01-30-2023 COVID-19 VACCINE () COVID-19 VACCINE () [facility] Start: 01-30-2023 Influenza vaccination [facility] Start: 12-10-2022 End: 12-10-2022 Telemedicine consultation with patient [facility] Start: 10-31-2022 [facility] Start: 09-25-2022 End: 09-26-2023 CBC W Auto Differential panel - Blood CBC and Auto Differential Lab Routine Other fatigue Expected: 09/25/2022 (Approximate), Expires: 09/26/2023 [facility] Work Phone: Comment on above: Expected: 09/25/2022 (Approximate), Expires: 09/26/2023 Start: 09-25-2022 End: 09-26-2023 Cobalamin (Vitamin B12) [Mass/volume] in Serum or Plasma Vitamin B12 Lab Routine Other fatigue Expected: 09/25/2022 (Approximate), Expires: 09/26/2023 [facility] Work Phone: Comment on above: Expected: 09/25/2022 (Approximate), Expires: 09/26/2023 Start: 09-25-2022 End: 09-26-2023 Comprehensive metabolic 2000 panel - Serum or Plasma Comprehensive Metabolic Panel Lab Routine Other fatigue Expected: 09/25/2022 (Approximate), Expires: 09/26/2023 [facility] Work Phone: Comment on above: Expected: 09/25/2022 (Approximate), Expires: 09/26/2023 Start: 09-25-2022 End: 09-26-2023 Hemoglobin A1c/Hemoglobin.total in Blood Hemoglobin A1C Lab Routine Screening for diabetes mellitus Expected: 09/25/2022 (Approximate), Expires: 09/26/2023 [facility] Work Phone: Comment on above: Expected: 09/25/2022 (Approximate), Expires: 09/26/2023 Start: 09-25-2022 End: 09-26-2023 TSH with reflex to Free T4 if abnormal TSH with reflex to Free T4 if abnormal Lab Routine Hair loss Expected: 09/25/2022 (Approximate), Expires: 09/26/2023 [facility] Service Area Work Phone: Comment on above: Expected: 09/25/2022 (Approximate), Expires: 09/26/2023 Start: 04-10-2022 End: 04-10-2022 Patient encounter procedure 04/10/2022 Office Visit Pulmonary Disease Shavonne Briseno, RADIOGRAPHER ANGIOGRAM-TELETYPESETTER MONITOR [address] [facility] 1[address] [place] [id number] [facility] Pulmonary Disease [facility] Start: 03-21-2022 End: 03-21-2022 Follow-up encounter 03/21/2022 Follow-Up Sports Medicine Anthony Yanez MD [address] [place] [address] [facility] Start: 03-07-2022 End: 03-07-2022 Admission to same day surgery center 03/07/2022 Surgery Anthony Yanez MD [address] [place] [address] Right wrist ganglion cyst removal [facility] Comment on above: Right wrist ganglion cyst removal Start: 03-07-2022 End: 03-07-2022 GANGLIONECTOMY UPPER EXTREMITY GANGLIONECTOMY UPPER EXTREMITY Ganglion cyst 03/07/2022 9:02 AM EDT [facility] Main OR Start: 03-07-2022 Subsequent hospital visit by physician 03/07/2022 Hospital Encounter Anthony Yanez MD [address] [place] [address] [facility] Start: 02-28-2022 End: 02-28-2022 Patient encounter procedure 02/28/2022 Surgical Consult Sports Medicine Anthony [facility]anez MD [address] [facility] [place] [address] [facility] Start: 02-01-2022 End: 02-02-2022 Clinical Support Encounter 02/01/2022 Clinical Support Encounter Sleep Medicine [facility] Start: 01-30-2022 End: 01-30-2022 Patient encounter procedure 01/30/2022 Office Visit Pulmonary Disease Shavonne Briseno, RADIOGRAPHER ANGIOGRAM-TELETYPESETTER MONITOR [address] [facility] 1st [place] [address] [facility] Pulmonary Disease [facility] Start: 01-30-2022 Influenza vaccination [facility] Start: 01-09-2022 End: 01-09-2022 Patient encounter procedure 01/09/2022 Office Visit General Surgery Jimena Gracia, DO [address] [place] [address] [facility] Start: 12-18-2021 Patient encounter procedure [facility] Start: 12-05-2021 FUV, Provider: Leoncio Jean Baptiste, Status: Pen, Time: 1:45 PM FUV, Provider: Leoncio Jean Baptiste, Status: Pen, Time: 1:45 PM [facility] Work Phone: Start: 12-05-2021 Patient encounter procedure [facility] Cardiology [facility]-Is[facility] Start: 11-23-2021 End: 11-24-2022 Sodium Chloride 0.9% Injectable Flush Peripheral Line ; via Peripheral LineVolume = 10 mL IntraVenous Flush Every 8 Hours and as Needed Start: 23-Nov-2021 End: 23-Nov-2022 Ordered: 23-Nov-2021 [facility] Start: 11-22-2021 FUV, Provider: Sierra Santos, Status: Pen, Time: 11:40 AM FUV, Provider: Sierra Santos, Status: Pen, Time: 11:40 AM [facility] Work Phone: Start: 11-18-2021 End: 11-18-2021 Patient encounter procedure 11/18/2021 Office Visit Psychology Joshua Akers, PsyD [address] [place] [address] [facility] Psychology Start: 11-12-2021 End: 11-12-2021 Patient encounter procedure 11/12/2021 Office Visit Pulmonary Disease Shavonne Briseno, RADIOGRAPHER ANGIOGRAM-TELETYPESETTER MONITOR [address] [facility] [address] [place] [address] [facility] Pulmonary Disease [facility] Start: 11-08-2021 PTRECHECKA, Provider : Gil Grover, Status: Pen, Time: 2:45 PM PTRECHECKA, Provider: Gil Grover, Status: Pen, Time: 2:45 PM [facility] Work [facility]: Start: 11-06-2021 DRYNDL, Provider: Gil Grover, Status: Pen, Time: 3:15 PM DRYNDL, Provider: Gil Grover, Status: Pen, Time: 3:15 PM [facility] Work Phone: Start: 11-01-2021 DRYNDL, Provider: Gil Grover, Status: Pen, Time: 2:45 PM DRYNDL, Provider: Gil Grover, Status: Pen, Time: 2:45 PM [facility] Work Phone: Start: 11-01-2021 DRYNDL, Provider: Gil Grover, Status: Pen, Time: 2:30 PM DRYNDL, Provider: Gil Grover, Status: Pen, Time: 2:30 PM [facility] Work Phone: Start: 10-30-2021 Patient encounter procedure ANNUAL, Provider: Rosalba Thomas, Status: Pen, Time: 3:00 PM [facility] Work Phone: Start: 10-30-2021 DRYNDL, Provider: Gil Grover, Status: Pen, Time: 2:00 PM DRYNDL, Provider: Gil Grover, Status: Pen, Time: 2:00 PM [facility] Work Phone: Start: 10-29-2021 FUV, Provider: Sierra Santos, Status: Pen, Time: 2:40 PM FUV, Provider: Sierra Santos, Status: Pen, Time: 2:40 PM [facility] Work Phone: Start: 10-25-2021 AQUATICFU4, Provider : Deborah Russell, Status: Pen, Time: 2:45 PM AQUATICFU4, Provider: Deborah Russell, Status: Pen, Time: 2:45 PM [facility] Work Phone: Start: 10-25-2021 End: 10-25-2021 Patient encounter procedure 10/25/2021 Appointment Nutrition and Dietetics Marcia Currie, RD [address] [place] [address] [facility] Start: 10-23-2021 AQUATICFU4, Provider : Deborah Russell, Status: Pen, Time: 2:45 PM AQUATICFU4, Provider: Deborah Russell, Status: Pen, Time: 2:45 PM [facility] Work Phone: Start: 10-08-2021 FUV, Provider: Sierra Santos, Status: Pen, Time: 4:40 PM FUV, Provider: Sierra Santos, Status: Pen, Time: 4:40 PM [facility] Work Phone: Start: 10-03-2021 FUV, Provider: Leoncio Jean Baptiste, Status: Pen, Time: 1:00 PM FUV, Provider: Leoncio Jean Baptiste, Status: Pen, Time: 1:00 PM Merged with [facility] Work Phone: Start: 09-16-2021 Patient encounter procedure ANNUAL, Provider: Rosalba Thomas, Status: Pen, Time: 9:45 AM [facility] Work Phone: Start: 07-23-2021 FUV, Provider: Markos Polanco, Status: Pen, Time: 10:00 AM FUV, Provider: Markos Polanco, Status: Pen, Time: 10:00 AM [place] [address] Work Phone: Start: 07-23-2021 FUV, Provider: Markos Contreras, Status: Pen, Time: 10:00 AM FUV, Provider: Markos Contreras, Status: Pen, Time: 10:00 AM [facility] Work Phone: Start: 07-13-2021 COVID-19 VACCINE (3 - Booster for Pfizer series) COVID-19 VACCINE (3 - Booster for Pfizer series) [facility] Start: 05-06-2021 End: 05-06-2021 Patient encounter procedure 05/06/2021 Appointment Nutrition and Dietetics Karen Light, RD [address] [facility] [place] [facility] [place], [facility] Start: 04-22-2021 FUV, Provider: Markos Polanco, Status: Pen, Time: 1:15 PM FUV, Provider: Markos Polanco, Status: Pen, Time: 1:15 PM [facility] Work Phone: Start: 04-16-2021 End: 04-16-2021 Patient encounter procedure 04/16/2021 Appointment Nutrition and Dietetics Karen Light, BRODY [address] [place] [address] [facility] Start: 04-07-2021 COVID-19 VACCINE (3 - Booster for Pfizer series) COVID-19 VACCINE (3 - Booster for Pfizer series) [facility] Start: 04-07-2021 COVID-19 VACCINE (3 - Pfizer series) COVID-19 VACCINE (3 - Pfizer series) [facility] Start: 03-21-2021 End: 03-21-2021 Admission to same day surgery center 03/21/2021 Surgery Endoscopy Rajiv Kemp MD [address] [place] [address] EGD W/ BX [facility] Comment on above: EGD W/ BX Start: 03-21-2021 End: 03-21-2021 Egd transoral biopsy single/multiple EGD W/ BX GERD (gastroesophageal reflux disease) 03/21/2021 7:30 AM EDT [facility] Start: 03-21-2021 Subsequent hospital visit by physician 03/21/2021 Hospital Encounter Endoscopy Rajiv Kemp MD [address] [place] [address] GERD (gastroesophageal reflux disease) [facility] Comment on above: GERD (gastroesophage al reflux disease) Start: 03-14-2021 FUV, Provider: Sierra Santos, Status: Pen, Time: 1:00 PM FUV, Provider: Sierra Santos, Status: Pen, Time: 1:00 PM [facility] Work Phone: Start: 03-14-2021 End: 03-14-2021 Patient encounter procedure 03/14/2021 Appointment Nutrition and Dietetics Karen Light, BRODY [address] [place] [address] [facility] Start: 02-18-2021 End: 02-18-2021 Patient encounter procedure 02/18/2021 Appointment Nutrition and Dietetics Kraen Light, RD [address] [place] [address] [facility] Start: 01-30-2021 Influenza vaccination INFLUENZA VACC INE (#1) [facility] Start: 01-25-2021 End: 01-25-2021 Patient encounter procedure 01/25/2021 Office Visit Psychology Joshua Akers, PsyD [address] [place] [address] [facility] Psychology Start: 01-23-2021 End: 01-23-2021 Patient encounter procedure 01/23/2021 Appointment Nutrition and Dietetics Karen Light, RD [address] [place] [address] [facility] Start: 12-28-2020 End: 12-28-2021 NOVEL CORONAVIRUS LAB 1 - NASOPHARYNGEAL NOVEL CORONAVIRUS LAB 1 - NASOPHARYNGEAL Microbiology STAT Screening for viral disease Expected: 12/28/2020, Expires: 12/28/2021 [facility] Work Phone: Comment on above: Expected: 12/28/2020 , Expires: 12/28/2021 Start: 12-04-2020 FUV, Provider: Sierra Santos, Status: Pen, Time: 3:40 PM FUV, Provider: Sierra Santos, Status: Pen, Time: 3:40 PM [facility] Work Phone: Start: 07-05-2020 Varicella vaccination Varicell a Vaccines (1 of 2 - 2-dose childhood series) [facility] Start: 01-31-2020 Ultrasound Ob Complete [address] Work Phone: Start: 02-03-2018 DTaP/Tdap/Td Vaccine s (1 - Tdap) DTaP/Tdap/Td Vaccines (1 - Tdap) [facility] Start: 02-03-2017 Screening for malign ant neoplasm of cervix [facility] Start: 02-03-2015 DTaP/Tdap/Td Vaccine s (1 - Tdap) DTaP/Tdap/Td Vaccines (1 - Tdap) [facility] Start: 02-03-2015 Third diphtheria, te tanus and acellular pertussis (DTaP) vaccination TDAP (ADULT) [facility] Start: 02-03-2014 Hepatitis C screening Hepatitis C Sc reening [facility] Start: 02-03-2014 Tetanus vaccination TETANUS [facility] Start: 2012 Screening for Chlamy benji trachomatis CHLAMYDIA SCREEN [facility] Start: 02-03-2011 HIV screening [facility] Start: 2008 COVID-19 VACCINE (1) COVID-19 VACCIN E (1) [facility] Start: 2008 Depression screening using PHQ-9 (Patient Health Questionnaire 9) score [facility] Start: 07-01-2007 HPV Vaccines (2 - 2- dose series) HPV Vaccines (2 - 2-dose series) [facility] Start: 02-03-2007 HPV Vaccines (1 - 2- dose series) HPV Vaccines (1 - 2-dose series) [facility] Start: 02-03-2007 Vaccination for cecy n papillomavirus [facility] Start: 02-03-1999 History and physical examination, annual for health maintenance Wellness Visit [facility] Start: 02-03-1997 Hepatitis A Vaccines (1 of 2 - Risk 2-dose series) Hepatitis A Vaccines (1 of 2 - Risk 2-dose series) [facility] Start: 02-03-1997 MMR Vaccines (1 of 1 - Standard series) MMR Vaccines (1 of 1 - Standard series) [facility] Start: 02-03-1997 Varicella vaccination Varicell a Vaccines (1 of 2 - 2-dose childhood series) [facility] Start: 1996 COVID-19 Vaccine (#1) COVID-19 Vacci ne (#1) [facility] Start: 1996 GONORRHEA SCREEN GONORRHEA SCREEN [facility] Start: 1996 Hepatitis B Vaccines (1 of 3 - 3-dose series) Hepatitis B Vaccines (1 of 3 - 3-dose series) [facility] Start: 1996 Hepatitis C antibody , confirmatory test HEPATITIS C VIRUS SCREENING [facility] Start: 1996 Hepatitis C screening HEPATITI S C VIRUS SCREENING [facility] Start: 1996 HIV screening HIV Screening [facility] Start: 1996 Lipid panel Lipid Panel [facility] Start: 1996 Screening for Chlamy benji trachomatis GONORRHEA SCREEN [facility] Start: 1996 Screening for malign ant neoplasm of cervix Pap Smear [facility] Start: 1996 Tetanus vaccination [facility] Start: 1996 Yearly Adult Physical Yearly Adult P [facility] Cytology Cervical or vaginal smear or scraping study THINPREP PAP TEST Pathology and Cytology Routine Encounter for gynecological examination without abnormal finding Encounter for screening for cervical cancer 12/08/2023 3:42 PM EDT [facility] Service Area Work Phone: Egd transoral biopsy single/multiple EGD W/ BX GERD (gastroesophageal reflux disease) [facility] GANGLIONECTOMY UPPER EXTREMITY GANGLIONECTOMY UPPER EXTREMITY Ganglion cyst [facility] Main OR H/O: surgery [facility] History of colonoscopy History of colonos copy [facility] Iron [Mass/mass] in Unspecified specimen [facility] Iron saturation [Mas s Fraction] in Serum or Plasma [facility] Microscopic urinalysis [facility] End: 12-30-2022 MR Wrist Right Without Contrast MR Wrist Right Without Contrast Imaging Routine Ganglion cyst 1 Occurrences starting 12/30/2021 until 12/30/2022 [facility] Work Phone: Comment on above: 1 Occurrences starti ng 12/30/2021 until 12/30/2022 Organism count, microscopic method [facility] Parvovirus B19 IgG A b [Units/volume] in Serum by Immunoassay [facility] Parvovirus B19 IgM A b [Units/volume] in Serum by Immunoassay [facility] Past history of procedure History of hyst eroscopy [facility] Patient Education OB Triage: Ret urn to Hospital or Notify Physician if you Experience: [facility] Work Phone: Patient referral [facility] Work Phone: Polysomnography SLEEP STUDY - DIAGNOSTIC PFT Routine Sleep apnea, unspecified type Snoring Overweight Insomnia, unspecified type Morning headache Fatigue, unspecified type Hypersomnia, unspecified Ordered: 12/24/2021 [facility] Comment on above: Ordered: 12/24/2021 SLEEP STUDY - TITRATION SLEEP ST UDY - TITRATION PFT Routine Sleep apnea, unspecified type Snoring Overweight Insomnia, unspecified type Morning headache Fatigue, unspecified type Hypersomnia, unspecified Ordered: 12/24/2021 [facility] Comment on above: Ordered: 12/24/2021 SURGICAL PATHOLOGY REQUEST SURGI MARVIN PATHOLOGY REQUEST Surg Path Routine Morbid obesity with body mass index of 50 or higher Essential hypertension Release Upon Ordering for 1 Occurrences starting 03/11/2023 [facility] Comment on above: Release Upon Orderin g for 1 Occurrences starting 03/11/2023 Total iron binding capacity measurement [facility] Urine microscopy: epithelial cells [facility] Urine microscopy: re d cells [facility] VITAMIN B1 VITAMIN B1 Lab R outine Essential hypertension Tachycardia Morbid obesity with body mass index of 50 or higher PCOS (polycystic ovarian syndrome) Gastroesophageal reflux disease, unspecified whether esophagitis present Chronic pain of both hips 12/28/2020 10:01 AM EDT [facility] White blood cell count [facility] [place] teeth extracted [place] teeth extra cted [facility] ZINC, SERUM ZINC, SERUM Lab Routine Essential hypertension Tachycardia Morbid obesity with body mass index of 50 or higher PCOS (polycystic ovarian syndrome) Gastroesophageal reflux disease, unspecified whether esophagitis present Chronic pain of both hips 12/28/2020 10:07 AM [facility] [address] [employer] Work Phone: [facility] NEGATED: Highlighted row has been ruled out! Planned Goals not documented [facility] [address] [employer] Work Phone: Immunizations Immunization Date Immunization Notes Care Provider Fa [facility] 10-26-2024 tetanus toxoid, reduced diphtheria toxoid, and acellular pertussis vaccine, adsorbed DEFINED NOT [facility] 06-27-2023 influenza virus vaccine, unspecified formulation Jacquelyn Walker MD Work Phone: [facility] Work Phone: 06-07-2020 measles, mumps and rubella virus vaccine Sierra Santos Work Phone: [facility] Work Phone: 05-17-2009 influenza virus vaccine, unspecified formulation Jimena Gracia DO Work Phone: [facility] 12-29-2006 HPV, unspecified formulation Sierra Santos DO Work Phone: [facility] Work Phone: Payers Date Payer Category Payer Self-pay 2021 Medicaid [facility] MEDICA[facility] [employer] [id number] 2021-Present [phone] [address] [place] [address] [id number] 2020 Unknown [employer] [facility] [id number] 2020-Present [address] [place] [address] [id number]. [id number] 2019 Medicaid [id number] 2019 Unknown 2019 Unknown [id number] 1996 Unknown [id number] 2..840.1.424386.3.579.2.903 1996 Unknown [id number] 2840.1.480293.3.579.2. 1996 Unknown [id number] 2.16.840.1.576408.3.579.2.90 1996 Unknown [id number] 2.16.840.1.877873.3.579.2. 1996 Unknown [id number] 2.16840.1.674484.3.579.2.90 1996 Unknown [id number] 2.16.840.1.470850.3.579.2. 1996 Unknown [id number] 2.16.840.1.633614.3.579.2.903 1996 Unknown [id number] 2.16.840.1.096282.3.579.2.356 1996 Unknown [id number] 2.16.840.1.665644.3.579.2.356 1996 Unknown [id number] 2.16.840.1.520331.3.579.2.356 1996 Unknown [id number] 2.16.840.1.489301.3.579.2.356 1996 Unknown [id number] 2.16.840.1.477145.3.579.2.98 1996 Unknown [id number] 2.16.840.1.842167.3.579.2.983 1996 Unknown [id number] 2.16.840.1.953322.3.579.2.983 1996 Unknown [id number] 2.16.840.1.661390.3.579.2.983 1996 Unknown [id number] 2.16.840.1.348884.3.579.2.98 1996 Unknown [id number] 2.16.840.1.568941.3.579.2.983 1996 Unknown [id number] 2.16.840.1.956781.3.579.2.983 1996 Unknown [id number] 2.16.840.1.690056.3.579.2.983 1996 Unknown [id number] 2.16.840.1.628815.3.579.2.98 1996 Unknown [id number] 2.16.840.1.097606.3.579.2.983 1996 Unknown [id number] 2.16.840.1.257130.3.579.2.983 1996 Unknown [id number] 2.16.840.1.200698.3.579.2.983 1996 Unknown [id number] 2.16.840.1.579398.3.579.2.983 1996 Unknown [id number] 2.16.840.1.905829.3.579.2.1245 1996 Unknown [id number] 2.16.840.1.338976.3.579.2.124 1996 Unknown [id number] 2.16.840.1.319792.3.579.2.124 1996 Unknown [id number] 2.16840.1.778734.3.579.2.1244 1996 Unknown [id number] 2.16840.1.887430.3.579.2.1242 1996 Unknown [id number] 2.840.1.260486.3.579.2.1243 1996 Unknown [id number] 2.16840.1.087316.3.579.2.124 1996 Unknown [id number] 2.840.1.962778.3.579.2.1243 1996 Unknown [id number] 2.840.1.881882.3.579.2.124 1996 Unknown [id number] 2.16840.1.837729.3.579.2.479 1996 Unknown [id number] 2.16840.1.089124.3.579.2.479 1996 Unknown [id number] 2.16840.1.005119.3.579.2.479 1996 Unknown [id number] 2.16840.1.832983.3.579.2.479 Unknown [id number] 2.16840.1.570110.3.579.2.462 Unknown [id number] 2.16.840.1.987073.3.579.2.462 Unknown [id number] 2.16.840.1.910526.3.579.2.462 Unknown [id number] 2.16.840.1.470496.3.579.2.462 Unknown [id number] 2.16.840.1.433242.3.579.2.462 Unknown [id number] 2.16.840.1.058433.3.579.2.462 Unknown [id number] 2.16.840.1.859200.3.579.2.462 Unknown [id number] 2.16840.1.828169.3.579.2.462 Unknown [id number] 2.16840.1.794396.3.579.2.462 Unknown [id number] 2..840.1.447634.3.579.2.462 Unknown [id number] 2.16840.1.786228.3.579.2.462 Unknown [id number] 2.16.840.1.716567.3.579.2.462 Unknown [id number] 2.16.840.1.811195.3.579.2.462 Unknown [id number] 2.16.840.1.466549.3.579.2.462 Unknown [id number] 2.16.840.1.996479.3.579.2.462 Unknown [id number] 2.16.840.1.112712.3.579.2.462 Unknown [id number] 2.16.840.1.923997.3.579.2.462 Unknown [id number] 2.16.840.1.907007.3.579.2.462 Unknown [id number] 2.16.840.1.201181.3.579.2.462 Unknown [id number] 2.16.840.1.080223.3.579.2.462 Social History Date Type Detail Facility Start: 10-30-2022 End: 12-08-2023 Never smoker Never smoker [facility] Start: 12-28-2020 End: 02-19-2023 Tobacco smoking status NHIS Former smoker [facility] Start: 12-28-2020 End: 09-25-2022 Tobacco use and exposure Never used [facility] Start: 12-28-2020 End: 04-09-2023 Alcohol intake Current drinker of alcohol (finding) [facility] Start: 12-28-2020 Alcohol Comment social [facility] Start: 1995 Sex Assigned At Not on file [facility] Tobacco smoking consumption unknown [facility] Start: 12-30-2021 End: 06-09-2024 Tobacco smoking status TNIS Never smoked tobacco [facility] Start: 12-30-2021 End: 03-01-2022 Alcohol intake Ex-drinker (finding) [facility] Start: 12-20-2021 End: 03-09-2024 Exposure to SARS-CoV-2 (event) Not sure [facility] Start: 10-30-2022 End: 12-08-2023 Gender identity Not on file [facility] History of tobacco use Current smoker [facility] Start: 12-08-2023 End: 03-09-2024 Alcoholic beverage intake Lifetime non-drinker (finding) [facility] Work Phone: Start: 11-16-2023 End: 11-26-2023 Exposure to SARS-CoV-2 (event) Unable to assess [facility] Start: 08-18-2024 End: 08-29-2024 Sex Female (finding) [facility] Start: 1995 Sex Assigned At Female [facility] NEGATED: Highlighted row - - [facility] [address] [place] Work Phone: Medical Equipment Procedure Code Equipment Code Equipment Origin al Text Equipment Identifier Dates Blood Sugar Diagnostic (Accutrend Glucose Test Strips) strip Start: 10-26-2024 Lancets (Acti-La nce Lancets) 23 gauge [facility] Start: 10-26-2024 Blood Sugar Diagnostic (Accutrend Glucose Test Strips) strip Start: 10-26-2024 Lancets (Acti-La nce Lancets) 23 gauge misc Start: 10-26-2024 Blood Sugar Diagnostic (Accutrend Glucose Test Strips) strip Start: 10-26-2024 Lancets (Acti-La nce Lancets) 23 gauge misc Start: 10-26-2024 Blood Sugar Diagnostic (Accutrend Glucose Test Strips) strip Start: 10-26-2024 Lancets (Acti-La nce Lancets) 23 gauge misc Start: 10-26-2024 Blood Sugar Diagnostic (Accutrend Glucose Test Strips) strip Start: 10-26-2024 Lancets (Acti-La nce Lancets) 23 gauge misc Start: 10-26-2024 Blood Sugar Diagnostic (Accutrend Glucose Test Strips) strip Start: 10-26-2024 Lancets (Acti-La nce Lancets) 23 gauge misc Start: 10-26-2024 Functional Status Date Assessment Result Facility NEGATED: Highlighted row Functional performance Functional status health issues are not documented [address] Work Phone: Mental Status Date Assessment Result Facility 11-24-2024 Cognitive function Awake;Alert;A [employer] te;Follows Commands [facility] Work Phone: 11-10-2024 Cognitive function Awake;Alert;A [employer] te;Follows Commands [facility] Work Phone: NEGATED: Highlighted row Cognitive function [Interpretation] Cognitive status health issues are not documented Disease [place] [address] [employer] Work Phone: Clinical Notes 12-28-2020 to 11-24-2024 Note Date & Type Note Facility 11-24-2024 Progress note [facility] 11-10-2024 Progress note [facility] 10-26-2024 Progress note [facility] 08-29-2024 Radiology Diagnostic study note [facility] Imaging Services [address] [place] [address] OB Limited (No Biometrics) MR#: [id number] Acct: [id number] Name: AYE WEIR Rep #: [id number] : 1995 F 29 From: Paul Lopez MD PCP: Care Physician,No Primary Status: REG CLI Study:OB Limited (No Biometrics) Date of Exam : 08/29/24 Exam# [id number] Ordering Dr: Isabel Ferrell MD PROCEDURE: OB LIMITED (NO BIOMETRICS) 08/29/2024 REASON FOR EXAM: BLEEDING History of low-lying placenta. TECHNIQUE: High resolution obstetric ultrasound performed using a 2D transducer. Standard views obtained, including biometry, anatomy survey, and Doppler studies. COMPARISON: None available. FINDINGS Number: 1 Position: Breech Placental Position: Posterior and not low-lying. Placental Abnormalities: No evidence of previa. ESTIMATED GESTATIONAL AGE: Baseline: 21 weeks and 3 days ESTIMATED DATE OF DELIVERY: Baseline: January 06, 2025 BIOPHYSICAL ASSESSMENT: Amniotic Fluid Volume: Normal. Amniotic Fluid Index: Within normal limits. (8-24 cm normal range) Cardiac Motion: 158 beats per minute (average) Trunk and Limb Motion: Present. US/OB Limited (No Biometrics) IMPRESSION: Posterior placenta and not low-lying. position is breech. Reading Location: [place] [address] CC: Dr. Isabel Luz MD; No Primary Care Physician ~ [employer] Administrator: Signed [facility] 08-04-2024 Evaluation note Diagnosis Onset Date Resolution H/O shoulder dystocia in prior , currently acute August 04 9:16am Obesity affecting acute August 04, 2024 9:16am acute August 04 9:16am Supervision of high-risk acute August 04 9:16am Tachycardia acute August 04 9:16am Family history of cervical cancer resolved August 04, 2024 9:16am FH: breast cancer resolved August 042024 9:16am Low lying placenta, antepartum acute August 29, 2024 1:40pm 21 weeks gestation of resolved August 29, 2024 1:40pm Spotting affecting resolved August 29, 2024 1:40pm Anemia in preg-unspec acute Aug 9:34am H/O shoulder dystocia in prior , currently acute August 31 9:34am Low lying placenta, antepartum acute August 31, 2024 9:34am Obesity affecting acute August 31, 2024 9:34am acute August 31 9:34am Supervision of high-risk acute August 31 9:34am Tachycardia acute August 31 9:34am 21 weeks gestation of resolved August 31, 2024 9:34am Family history of cervical cancer resolved August 31, 2024 9:34am FH: breast cancer resolved August 312024 9:34am Spotting affecting resolved August 31, 2024 9:34am Anemia in preg-unspec acute Aug 9:27am H/O shoulder dystocia in prior , currently acute September 28 9:27am History of bariatric surgery acute September 28, 2024 9:27am Low lying placenta, antepartum acute September 28, 2024 9:27am Obesity affecting acute September 28, 2024 9:27am acute September 28 9:27am Supervision of high-risk acute September 28, 2024 9:27am Tachycardia acute September 28 9:27am Family history of cervical cancer resolved September 28, 2024 9:27am FH: breast cancer resolved September 012024 9:27am Anemia in preg-unspec acute October 26, 2024 9:48am Exposure to parvovirus acute Ma 2024 9:48am H/O shoulder dystocia in prior , currently acute October 26 9:48am History of bariatric surgery acute October 26, 2024 9 :48am Low lying placenta, antepartum acute October 26, 2024 9 :48am Obesity affecting acute October 26, 2024 9 :48am acute October 26, 2024 9:48am Supervision of high-risk acute October 26 9:48am Tachycardia acute October 26 9:48am Anemia affecting acute November 10, 2024 9:48am Anemia in preg-unspec acute Oct 9:48am Exposure to parvovirus acute Ju 2024 9:48am H/O shoulder dystocia in prior , currently acute November 10 9:48am History of bariatric surgery acute November 10, 2024 9:48am Low lying placenta, antepartum acute November 10, 2024 9:48am Obesity affecting acute November 10, 2024 9:48am acute November 10 9:48am Supervision of high-risk acute November 10, 025 9:48am Tachycardia acute November 10 9:48am [employer] Work Phone: 1(617) 958-978003-06-2025 Evaluation note* Diagnosis Onset Date Resolution Status Admit Date H/O shoulder dystocia in [place] , currently acute [facility] 2024 9:16am Obesity affecting acute August 04, 2024 9:16am acute August 04 9:16am Supervision of high-risk acute August 04, 2024 9:16am Tachycardia acute August 04 9:16am Family history of cervical cancer resolved August 04, 2024 9:16am FH: breast cancer resolved August 042024 9:16am Low lying placenta, antepartum acute August 29, 2024 1:40pm 21 weeks gestation of resolved August 29, 2024 1:40pm Spotting affecting resolve d August 29, 2024 1:40pm Anemia in preg-unspec acute Apr 2024 9:34am H/O shoulder dystocia in [place] , currently acute Ap 2024 9:34am Low lying placenta, antepartum acute August 31, 2024 9:34am Obesity affecting acute August 31, 2024 9:34am acute August 31 9:34am Supervision of high-risk acute August 31, 2024 9:34am Tachycardia acute August 31 9:34am 21 weeks gestation of resolved August 31, 2024 9:34am Family history of cervical cancer resolved August 31, 2024 9:34am FH: breast cancer resolved August 312024 9:34am Spotting affecting resolve d August 31, 2024 9:34am Anemia in preg-unspec acute Apr 2024 9:27am H/O shoulder dystocia in [place] , currently acute Ap ril 2024 9:27am History of bariatric surgery acute September 28, 2024 9:27am Low lying placenta, antepartum acute September 28, 2024 9:27am Obesity affecting acute September 28, 2024 9:27am acute September 28 9:27am Supervision of high-risk acute September 28, 2024 9:27am Tachycardia acute September 28, 2 025 9:27am Family history of cervical cancer resolved September 28, 2024 9:27am FH: breast cancer resolved September 012024 9:27am Anemia in preg-unspec acute October 26, 2024 9:48am Exposure to parvovirus acute 2024 9:48am H/O shoulder dystocia in [place] , currently acute 2024 9:48am History of bariatric surgery acute October 26, 2024 9:48am Low lying placenta, antepartum acute October 26, 2024 9:48am Obesity affecting acute October 26, 2024 9:48am acute October 26, 2024 9:48am Supervision of high-risk acute October 26, 2024 9 :48am Tachycardia acute October 26 9:48am Anemia affecting acute November 10, 2024 9:48am Anemia in preg-unspec acute Oct 9:48am Exposure to parvovirus acute 2024 9:48am H/O shoulder dystocia in [place] , currently acute 2024 9:48am History of bariatric surgery acute November 10, 2024 9:48am Low lying placenta, antepartum acute November 10, 2024 9:48am Obesity affecting acute November 10, 2024 9:48am acute November 10 9:48am Supervision of high-risk acute November 10, 2024 9:48am Tachycardia acute November 10 9:48am Anemia affecting acute November 24, 2024 9:36am Anemia in preg-unspec acute Oct 9:36am Exposure to parvovirus acute 2024 9:36am H/O shoulder dystocia in [place] , currently acute 2024 9:36am History of bariatric surgery acute November 24, 2024 9:36am Low lying placenta, antepartum acute November 24, 2024 9:36am Obesity affecting acute November 24, 2024 9:36am acute November 24 9:36am Supervision of high-risk acute November 24, 2024 9:36am Tachycardia acute November 24 9:36am [employer] Work Phone: 1(649) 128-227302-10-2025 Evaluation note* Diagnosis Onset Date Resolution Status Admit Date H/O shoulder dystocia in prior , currently acute July 11, 025 2:20pm Obesity affecting acute July 11, 2024 2:20pm acute July 11, 2024 2:20pm Supervision of high-risk acute July 11 2:20pm Tachycardia acute July 2:20pm Family history of cervical cancer resolved July 11 025 2:20pm FH: breast cancer resolved 2024 2:20pm H/O shoulder dystocia in prior , currently acute August 04, 2024 9:16am Obesity affecting acute August 04, 2024 9:16am acute August 04 9:16am Supervision of high-risk acute August 04, 2024 9:16am Tachycardia acute August 04 9:16am Family history of cervical cancer resolved August 04, 2024 9:16am FH: breast cancer resolved August 042024 9:16am Low lying placenta, antepartum acute August 29, 2024 1:40pm 21 weeks gestation of resolved August 29, 2024 1:40pm Spotting affecting resolve d August 29, 2024 1:40pm Anemia in preg-unspec acute Apr 2024 9:34am H/O shoulder dystocia in prior , currently acute August 31, 2024 9:34am Low lying placenta, antepartum acute August 31, 2024 9:34am Obesity affecting acute August 31, 2024 9:34am acute August 31 9:34am Supervision of high-risk acute August 31, 2024 9:34am Tachycardia acute August 31 9:34am 21 weeks gestation of resolved August 31, 2024 9:34am Family history of cervical cancer resolved August 31, 2024 9:34am FH: breast cancer resolved August 312024 9:34am Spotting affecting resolve d August 31, 2024 9:34am Anemia in preg-unspec acute Aug 9:27am H/O shoulder dystocia in prior , currently acute September 28, 2024 9:27am History of bariatric surgery acute September 28, 2024 9:27am Low lying placenta, antepartum acute September 28, 2024 9:27am Obesity affecting acute September 28, 2024 9:27am acute September 28 9:27am Supervision of high-risk acute September 28, 2024 9:27am Tachycardia acute September 28, 025 9:27am Family history of cervical cancer resolved September 28, 2024 9:27am FH: breast cancer resolved September 012024 9:27am Anemia in preg-unspec acute October 26, 2024 9:48am Exposure to parvovirus acute 2024 9:48am H/O shoulder dystocia in prior , currently acute October 26, 2024 9 :48am History of bariatric surgery acute October 26, 2024 9:48am Low lying placenta, antepartum acute October 26, 2024 9 :48am Obesity affecting acute October 26, 2024 9:48am acute October 26, 2024 9:48am Supervision of high-risk acute October 26, 2024 9 :48am Tachycardia acute October 26 9:48am [facility] Work Phone: 1([phone]) 951-343201-09-2025 Evaluation note* Diagnosis Onset Date Resolution Status Admit Date Family history of cervical cancer acute June 09 11:29am FH: breast cancer acute June 09, 2024 11:29am H/O shoulder dystocia in [place] , currently acute 2024 11:29am Obesity affecting acute June 09, 2024 11:29am acute June 09 025 11:29am Supervision of high-risk acute June 09 11:29am Tachycardia acute June 09, 2024 11:29am Family history of cervical cancer acute July 11 025 2:20pm FH: breast cancer acute 2024 2:20pm H/O shoulder dystocia in [place] , currently acute Fe bruary 2024 2:20pm Obesity affecting acute July 11, 2024 2:20pm acute July 11, 2024 2:20pm Supervision of high-risk acute July 11, 2 025 2:20pm Tachycardia acute July 2:20pm Family history of cervical cancer acute August 04, 2024 9:16am FH: breast cancer acute August 042024 9:16am H/O shoulder dystocia in [place] , currently acute [facility] 2024 9:16am Obesity affecting acute August 04, 2024 9:16am acute August 04 9:16am Supervision of high-risk acute August 04, 2024 9:16am Tachycardia acute August 04 9:16am [facility] Work Phone: [phone]) 697-873212-13-2024 NoteHemoglobin EvaluationDebanner [facility] 20[facility] 11:24am11.3 g[facility]24 NoteHemoglobin EvaluationDebanner [facility] 2023 11:24am11.3 [facility] 03-09-2024 History of Present illness Narrative* Sierra Santos, DO - 03/09/2024 12:40 PM EDT Subjective Patient ID: Aye Weir is a 29 y.o. female who presents for Follow-up (3 month/MedicationRF). HPI Patient is here today for 3 mo follow up Pt had no change on straterra, so changed to vyvanse. Reports some improvement. Review of Systems Cardiovascular: Negative for chest pain and leg swelling. Objective BP 107/72 Pulse 89 Ht 1.676 m (5' 6) Wt 93.4 kg (206 lb) BMI 33.25 kg/m Physical Exam Constitutional: General: She is not in acute distress. Appearance: Normal appearance. Neurological: Mental Status: She is alert. Psychiatric: Mood and Affect: Mood normal. Behavior: Behavior normal. Thought Content: Thought content normal. Assessment/Plan Problem List Items Addressed This Visit Attention deficit hyperactivity disorder (ADHD), combined type - Primary ADHD - on wellbutrin already with no change - no change with strattera, dced and doing vyvanse 40mg, has been on this dose for 1 week, call in a few weeks with updated -will do csa and next appt Final diagnoses: [F90.2] Attention deficit hyperactivity disorder (ADHD), combined type [facility] Work Phone: 1(774) 520-199607-09-2024 History of Present illness Narrative* Jacquelyn Walker MD - 12/08/2023 3:30 PM EDT Aye Weir is a 28 y.o. female who is here for a routine exam. PCP = Sierra Santos DO Chief Complaint Patient presents with Gynecologic Exam Patient is here for yearly exam and pap test. Patient does do regular self breast exams and has no concerns at this time. LMP: 11/19/23 Presents for annual exam. She voices no complaints and is doing well. Denies any bowel or bladder problems. Denies any breast problems. had a vasectomy. OB History 3 Para 2 Term 2 0 AB 1 Living 2 SAB 1 IAB 0 Ectopic 0 Multiple 0 Live Births 2 Social History Substance and Sexual Activity Sexual Activity Yes Partners: Male control/protection: Male Sterilization Current contraception: Vasectomy Past Medical History: Diagnosis Date Encounter for full-term uncomplicated delivery ([facility]) Normal vaginal delivery Other conditions influencing health status Menarche Personal history of other complications of , childbirth and the puerperium History of spontaneous Past Surgical History: Procedure Laterality Date OTHER SURGICAL HISTORY 03/12/2019 Hysteroscopy OTHER SURGICAL HISTORY 03/12/2019 Uterine polypectomy OTHER SURGICAL HISTORY 03/12/2019 Wrist surgery OTHER SURGICAL HISTORY 10/30/2021 Colonoscopy OTHER SURGICAL HISTORY 11/07/2019 [place] tooth extraction Past med hx and past surg hx reviewed and notable for: none Review of Systems: Constitutional: No fever or chills Respiratory: No shortness of breath, or cough Cardiovascular: No chest pain or syncope Breasts: No breast pain, no masses, no nipple discharge Gastrointestinal: No nausea, vomiting, or diarrhea, no abdominal pain Genitourinary: No dysuria or frequency Gynecology: Negative except as noted in history of present illness All other: All other systems reviewed and negative for complaint Objective BP 112/64 Ht 1.676 m (5' 6) Wt 106 kg (233 lb) LMP 11/19/2023 (Exact Date) BMI 37.61 kg/m PHYSICAL EXAMINATION: Well-developed, well nourished, in no acute distress, alert and oriented x three, is pleasant and cooperative. HEENT: Clear. Pupils equal, round and reactive to light and accommodation. Extraocular muscles are intact. Oral mucosa pink without exudate. NECK: No lymphadenopathy, no thyromegaly. BREASTS: Symmetric, no palpable masses. No nipple discharge or retraction. LUNGS: Clear bilaterally. HEART: Regular rate and rhythm without murmurs. ABDOMEN: Normoactive bowel sounds, soft and nontender, no guarding or rebound tenderness, no CVA tenderness. EXTREMITIES: No clubbing, cyanosis or edema. NEUROLOGIC: Cranial nerves II-XII grossly intact. : Normal external female genitalia, normal vulva, normal vagina. Normal urethral meatus, urethra and bladder. Normal appearing cervix. Normal-sized uterus, no adnexal masses or tenderness. Pap smear performed today. Actions performed during this visit include: - Clinical breast exam - Clinical pelvic exam - No orders of the defined types were placed in this encounter. Problem List Items Addressed This Visit None Visit Diagnoses Encounter for gynecological examination without abnormal finding Relevant Orders THINPREP PAP TEST Encounter for screening for cervical cancer Relevant Orders THINPREP PAP TEST Provider Impression: 1. Annual Thank you for coming to your annual exam. Your findings during the exam were normal. Please return for your next visit in 1 year. [facility] Work Phone: 1(685) 146-219911-09-2023 History of Present illness Narrative* Jimena Gracia DO - 04/09/2023 2:00 PM EST [facility] POST OP VISIT HPI Aye Weir is seen today for a post op visit. she is doing well and reports no problems at this time. she denies abdominal pain, nausea or vomiting. She is exercising and taking her vitamins. Current Outpatient Medications Medication Sig Dispense Refill atomoxetine 25 MG capsule Take 1 capsule by mouth Twice daily. buPROPion 300 MG tablet XL Take 1 tablet by mouth daily. metoprolol succinate 50 MG tablet XL Take 1 tablet by mouth daily. pm Misc. Devices Misc by Unknown route. BIPAP 10/6 cm H2O set up 07/23/22 -[facility] As of 02/03/23 CPAP 6cm H2O omeprazole [address] capsule Take 1 capsule by mouth as needed. Ondansetron 4 MG Tab Dispersible tablet Take 1 tablet by mouth every 8 hours as needed. 30 tablet 2 tiZANidine 4 MG tablet Take 1 tablet by mouth as needed. oxyCODONE 5 MG/5ML Solution oral solution Take 5 mL by mouth every 6 hours as needed for up to 6 days. (Patient not taking: Reported on 02/24/2023) 120 mL 0 No current facility-administered medications for this visit. PHYSICAL EXAM: General Appearance: in no apparent distress and well developed and well nourished. Abdomen: soft, non-tender. Bowel sounds normal. No masses, no organomegaly Incision: healing well, clean and dry Extremities: extremities normal, atraumatic, no cyanosis or edema DATA REVIEW: Lab Results Component Value Date WBC 12.1 (H) 03/12/2023 HGB 12.2 03/12/2023 HCT 38.0 03/12/2023 MCV 87.1 03/12/2023 PLATELET 311 03/12/2023 Lab Results Component Value Date SODIUM 138 03/12/2023 POTASSIUM 4.3 03/12/2023 CO2 24 03/12/2023 CALCIUM 8.7 03/12/2023 BUN 10 03/12/2023 GLUCOSE 112 (H) 03/12/2023 ALBUMIN 4.5 02/10/2023 BILITOTAL 0.5 02/10/2023 ALKPHOS 104 02/10/2023 AST 27 02/10/2023 ALT 23 02/10/2023 ANIONGAP 9 03/12/2023 Lab Results Component Value Date IRON 93 02/10/2023 TIBC 384 02/10/2023 Lab Results Component Value Date CHOLESTEROL 199 02/10/2023 CHOLESTEROL 174 11/17/2022 CHOLESTEROL 177 12/28/2020 HDL 52 02/10/2023 HDL 43 11/17/2022 HDL 49 12/28/2020 LDLCALC 112 02/10/2023 LDLCALC 99 11/17/2022 LDLCALC 89 12/28/2020 TRIG 176 (H) 02/10/2023 TRIG 160 (H) 11/17/2022 TRIG 194 (H) 12/28/2020 Lab Results Component Value Date [id number] 44.6 02/10/2023 Lab Results Component Value Date FOLATE >20.0 (H) 02/10/2023 Lab Results Component Value Date [id number] 146.8 02/10/2023 IMPRESSION: S/P sleeve gastrectomy PLAN: DISPOSITION: Return in 2 months for follow up visit EDUCATION: Pt encouraged to continue with positive lifestyle changes and take vitamins daily Advance to soft diet Check labs in 2 months Jimena Gracia DO [facility] History of Present illness Narrative* Jimena Gracia DO - 03/31/2023 1:45 PM EDT [facility] POST OP VISIT HPI Aye is seen today for a post op visit. She is doing well and reports no problems at this time.She denies abdominal pain, nausea or vomiting. Current Outpatient Medications Medication Sig Dispense Refill atomoxetine 25 MG capsule Take 1 capsule by mouth Twice daily. buPROPion 300 MG tablet XL Take 1 tablet by mouth daily. metoprolol succinate 50 MG tablet XL Take 1 tablet by mouth daily. pm Misc. Devices Misc by Unknown route. BIPAP 10/6 cm H2O set up 07/23/22 -[facility] As of 02/03/23 CPAP 6cm H2O omeprazole [address] capsule Take 1 capsule by mouth as needed. Ondansetron 4 MG Tab Dispersible tablet Take 1 tablet by mouth every 8 hours as needed. 30 tablet 2 tiZANidine 4 MG tablet Take 1 tablet by mouth as needed. oxyCODONE 5 MG/5ML Solution oral solution Take 5 mL by mouth every 6 hours as needed for up to 6 days. (Patient not taking: Reported on 02/24/2023) 120 mL 0 No current facility-administered medications for this visit. PHYSICAL EXAM: General Appearance: in no apparent distress and well developed and well nourished. Abdomen: soft, non-tender. Bowel sounds normal. No masses, no organomegaly Incision: healing well, clean and dry Extremities: extremities normal, atraumatic, no cyanosis or edema DATA REVIEW: Lab Results Component Value Date WBC 12.1 (H) 03/12/2023 HGB 12.2 03/12/2023 HCT 38.0 03/12/2023 MCV 87.1 03/12/2023 PLATELET 311 03/12/2023 Lab Results Component Value Date SODIUM 138 03/12/2023 POTASSIUM 4.3 03/12/2023 CO2 24 03/12/2023 CALCIUM 8.7 03/12/2023 BUN 10 03/12/2023 GLUCOSE 112 (H) 03/12/2023 ALBUMIN 4.5 02/10/2023 BILITOTAL 0.5 02/10/2023 ALKPHOS 104 02/10/2023 AST 27 02/10/2023 ALT 23 02/10/2023 ANIONGAP 9 03/12/2023 Lab Results Component Value Date IRON 93 02/10/2023 TIBC 384 02/10/2023 Lab Results Component Value Date CHOLESTEROL 199 02/10/2023 CHOLESTEROL 174 11/17/2022 CHOLESTEROL 177 12/28/2020 HDL 52 02/10/2023 HDL 43 11/17/2022 HDL 49 12/28/2020 LDLCALC 112 02/10/2023 LDLCALC 99 11/17/2022 LDLCALC 89 12/28/2020 TRIG 176 (H) 02/10/2023 TRIG 160 (H) 11/17/2022 TRIG 194 (H) 12/28/2020 Lab Results Component Value Date [id number] 44.6 02/10/2023 Lab Results Component Value Date FOLATE >20.0 (H) 02/10/2023 Lab Results Component Value Date [id number] 146.8 02/10/2023 IMPRESSION: S/P sleeve gastrectomy PLAN: DISPOSITION: Return in 2 weeks for follow up visit EDUCATION: Pt encouraged to continue with positive lifestyle changes and take vitamins daily Start vitamins Start exercising Advance to pureed diet Jimena Gracia DO documented in this encounterAv[id number] Nurse Note* Nursing Notes - Ethel Menjivar RN - 03/12/2023 2:49 PM EDT Discharge instructions and education reviewed with pt, education provided for dx and new medications, printed education given, denies any questions, IV and tele removed. Patient provided with meds tobeds. [facility]10-12-[facility] Miscellaneous Notes* Nursing Notes - Ethel Menjivar RN - 03/12/2023 2:49 PM EDT Discharge instructions and education reviewed with pt, education provided for dx and new medications, printed education given, denies any questions, IV and tele removed. Patient provided with meds tobeds. * Plan of Care - Ethel Menjivar RN - 03/12/2023 2:48 PM EDT Problem: Patient Care Overview Goal: Plan of Care Review Outcome: Adequate for Discharge Goal: Individualization & Mutuality Outcome: Adequate for Discharge Goal: Discharge Needs Assessment Outcome: Adequate for Discharge Goal: Interdisciplinary Rounds/Family Conf Outcome: Adequate for Discharge Problem: Pain, Acute (Adult) Goal: Identify Related Risk Factors and Signs and Symptoms Description: Related risk factors and signs and symptoms are identified upon initiation of Human Response Clinical Practice Guideline (CPG) Outcome: Adequate for Discharge Goal: Acceptable Pain Control/Comfort Level Description: Patient will demonstrate the desired outcomes by discharge/transition of care. Outcome: Adequate for Discharge Problem: Fall/Trauma/Injury Risk (Adult) Goal: Fall/Trauma/Injury Risk: Absence of Trauma/Injury/Falls Description: Patient will demonstrate the desired outcomes. Outcome: Adequate for Discharge Goal: Knowledge of risk factors/behavior modification Description: Knowledge of risk factors/behavior modification for fall/injury prevention Outcome: Adequate for Discharge Problem: Skin Integrity Impairment, Risk/Actual (Adult) Goal: Identify Related Risk Factors and Signs and Symptoms Description: Related risk factors and signs and symptoms are identified upon initiation of Human Response Clinical Practice Guideline (CPG) Outcome: Adequate for Discharge Goal: Skin Integrity/Wound Healing Description: Patient will demonstrate the desired outcomes by discharge/transition of care. Outcome: Adequate for Discharge Problem: Nausea/Vomiting (Adult) Goal: Identify Related Risk Factors and Signs and Symptoms Description: Related risk factors and signs and symptoms are identified upon initiation of Human Response Clinical Practice Guideline (CPG) Outcome: Adequate for Discharge Goal: Symptom Relief Description: Patient will demonstrate the desired outcomes by discharge/transition of care. Outcome: Adequate for Discharge Goal: Adequate Hydration Description: Patient will demonstrate the desired outcomes by discharge/transition of care. Outcome: Adequate for Discharge * Nursing Notes - Ethel Menjivar RN - 03/12/2023 12:00 PM EDT Patient assessment unchanged from previous assessment. Any exceptions noted in flowsheets. Call light and personal items within reach. Patient denies any further needs. * Therapy Note - Anthony Whitmore PT - 03/12/2023 9:30 AM EDT PT evaluation orders received, medical chart reviewed. Patient admitted 03/11/23 s/p gastric sleeveprocedure per Dr. Gracia. Patient approached this morning for assessment, patient states ambulating independently without difficulty, declines need for skilled PT services. Discussed HEP and to continue with regular activity. PT will sign-off from caseload at this time. Anthony Whitmore PT 03/12/2023 9:31 AM * Nursing Notes - Hilda Ho RN - 03/12/2023 3:55 AM EDT Patient resting in bed. Assessment unchanged from prior. Patient denies any needs. Call light within reach. * Nursing Notes - Hilda Ho RN - 03/11/2023 11:32 PM EDT Assessment unchanged from prior. Patient does state her nausea is a lot better. Call light within reach. SCDs on. Denies any other needs. * Certification - Jimena Gracia DO - 03/11/2023 1:31 PM EDT I certify that this patient requires inpatient services at this time. I anticipate the expected length of stay will include at least two midnights. Current treatment plan includes pain and nausea control. Plans for post hospitalization care will be discharge to home. * Op Note - Jimena Gracia DO - 03/11/2023 1:28 PM EDT Operative Report DATE OF SERVICE: 03/11/2023 NAME: Aye Weir CSN: [id number] PRE OP DIAGNOSES: Morbid obesity with HTN POST OP DIAGNOSES: Morbid obesity with HTN INDICATION FOR PROCEDURE: This patient is a pleasant 28 y.o. female suffering from morbid obesity and its comorbidities. After being seen in the clinic, She was found to be an appropriate candidate for a laparoscopic sleeve gastrectomy. OPERATIONS PERFORMED: Laparoscopic sleeve gastrectomy, robotic assisted, interpretation of ICG for perfusion SURGEON: Jimena Gracia DO METALIZING SUPERVISOR: Surgical Staff: Chief Bank Examiner: Gricelda Polk RN; John Pradhan RN Scrub Person: Christiano Tracy Billing Auditor Plant Maintenance Worker: Priyanka Mckeon ANESTHESIA: GETA ESTIMATED BLOOD LOSS IN MLS: 20 COMPLICATIONS: None SPECIMEN: stomach PREOPERATIVE NOTE: The contemplated operative procedure, risks, benefits and alternatives to this procedure have been discussed with this patient and/or legal community relations representative. The patient and/or legal community relations representative acknowledge(s) understanding of the above and consent(s) to the procedure. OPERATIVE PROCEDURE: The patient was given intravenous antibiotics, sequential stockings, subcutaneous heparin in the preoperative area. After informed consent, the patient was transferred to the operating room, placed in a supine position, and underwent general anesthesia. The abdomen was prepped and draped in the usual sterile fashion using ChloraPrep. Next a timeout was obtained that revealed the correct patient, position, and laterality of the procedure. Once this was done, a 1 cm transverse incision was made approximately 15 cm below the xiphoid and approximately 2 cm to the left of the midline. A 5 mm scope was then inserted into the abdomen under direct visualization without difficulty. The abdomen was then insufflated with CO2 to a pressure of 15 mmHg. An angled laparoscope was then inserted and additional ports were placed. 2 left-sided 8 mmtrochars were placed under direct visualization. This was then followed by a 12 mm right-sided trocar and another 8 mm air seal trocar. The patient was then placed in 20 of Trendelenburg and the da Jimmie robot was docked to the patient in the usual fashion. I then took my position at the surgical cox south. The liver was then retracted superiorly medially revealing the anterior border of the vinh and the freehold liver retractor system was anchored at this point and then to the anterior abdominalwall superiorly and right lateral to provide adequate liver retraction. The calibration tube was then passed by anesthesia into the stomach and the stomach was suctioned. No hiatal hernia was noted. Following this, I measured 6 cm from the pylorus and began to take down the greater curve. I used the vessel sealer to divide the omentum along the greater curvature of the stomach. This was taken from 6 cm proximal of the pylorus to the angle of Hiss. The short gastric vessels were divided during this process. Following this, the calibration tube was secured along the lesser curvature and the 60mm stapler with a green load was inserted and fired using the calibration tube as a guide. This wasfollowed by a blue load and then the remainder of the sleeve was created with white loads. A leak test was then completed using 100 mL of saline mixed with 8 mL of ICG. No leak was identified. Following this, 2 mL of ICG was injected intravenously and perfusion of the stomach was confirmed. The stomach was then suctioned via the calibration tube which was then removed. Hemostasis was confirmed. The freehold retraction system was then removed from the patient. The specimen was removed through the 12 mm fascial site. It was then passed off to the back table and sent to pathology. The 12 mm fascial site was then closed with a 2-0 Vicryl in a posterior fashion. The robot was then undocked. All skin incisions were then closed with 4-0 Monocryl in a subcuticular fashion and sterile dressings were then applied. The patient tolerated the procedure well. All counts were correct at the end the procedure. The patient was transferred to PACU in stable condition. Jimena Gracia DO 1:28 PM documented in this [facility]10-12-2023 Plan of care note* Plan of Care - Ethel Menjivar RN - 03/12/2023 2:48 PM EDT Problem: Patient Care Overview Goal: Plan of Care Review Outcome: Adequate for Discharge Goal: Individualization & Mutuality Outcome: Adequate for Discharge Goal: Discharge Needs Assessment Outcome: Adequate for Discharge Goal: Interdisciplinary Rounds/Family Conf Outcome: Adequate for Discharge Problem: Pain, Acute (Adult) Goal: Identify Related Risk Factors and Signs and Symptoms Description: Related risk factors and signs and symptoms are identified upon initiation of Human Response Clinical Practice Guideline (CPG) Outcome: Adequate for Discharge Goal: Acceptable Pain Control/Comfort Level Description: Patient will demonstrate the desired outcomes by discharge/transition of care. Outcome: Adequate for Discharge Problem: Fall/Trauma/Injury Risk (Adult) Goal: Fall/Trauma/Injury Risk: Absence of Trauma/Injury/Falls Description: Patient will demonstrate the desired outcomes. Outcome: Adequate for Discharge Goal: Knowledge of risk factors/behavior modification Description: Knowledge of risk factors/behavior modification for fall/injury prevention Outcome: Adequate for Discharge Problem: Skin Integrity Impairment, Risk/Actual (Adult) Goal: Identify Related Risk Factors and Signs and Symptoms Description: Related risk factors and signs and symptoms are identified upon initiation of Human Response Clinical Practice Guideline (CPG) Outcome: Adequate for Discharge Goal: Skin Integrity/Wound Healing Description: Patient will demonstrate the desired outcomes by discharge/transition of care. Outcome: Adequate for Discharge Problem: Nausea/Vomiting (Adult) Goal: Identify Related Risk Factors and Signs and Symptoms Description: Related risk factors and signs and symptoms are identified upon initiation of Human Response Clinical Practice Guideline (CPG) Outcome: Adequate for Discharge Goal: Symptom Relief Description: Patient will demonstrate the desired outcomes by discharge/transition of care. Outcome: Adequate for Discharge Goal: Adequate Hydration Description: Patient will demonstrate the desired outcomes by discharge/transition of care. Outcome: Adequate for Discharge [facility]10-12-2023 Nurse Note* Nursing Notes - Ethel Menjivar RN - 03/12/2023 12:00 PM EDT Patient assessment unchanged from previous assessment. Any exceptions noted in flowsheets. Call light and personal items within reach. Patient denies any further needs. [facility]10-12-2023 Hospital course Narrative* Jimena Gracia DO - 03/12/2023 11:55 AM EDT Discharge Summary Name: Aye Weir Age: 28 y.o. Birthday: 1995 Admit Date: 03/11/2023 10:17 AM Discharge Date: 03/12/23 Discharge Time: 1156 Discharge Unit: [facility] Admission Information Admitting Physician: Jimena Gracia DO Discharge Information Discharge Physician: Jimena Gracia DO Problem List Active Hospital Problems Diagnosis S/P gastric sleeve procedure Resolved Hospital Problems No resolved problems to display. Brief Summary of Hospital Course for Discharge Summary: Aye Weir was admitted to the hospital following her procedure. For full operative detailsplease see the operative note. she was placed on the med/surg floor and started on a diet. her labsand vitals were monitored. her pain and nausea were controlled with medication. On POD 1 she was deemed stable for discharge. Brief Summary of Consults for Discharge Summary: Brief Summary of Procedures and Imaging for Discharge Summary: Summary of last selected lab results and date obtained: Lab Results Component Value Date WBC 12.1 (H) 03/12/2023 HGB 12.2 03/12/2023 HCT 38.0 03/12/2023 PLATELET 311 03/12/2023 MCV 87.1 03/12/2023 Lab Results Component Value Date SODIUM 138 03/12/2023 POTASSIUM 4.3 03/12/2023 CHLORIDE 105 03/12/2023 CO2 24 03/12/2023 BUN 10 03/12/2023 CREATSERUM 0.68 (L) 03/12/2023 GLUCOSE 112 (H) 03/12/2023 Lab Results Component Value Date ALT 23 02/10/2023 AST 27 02/10/2023 ALKPHOS 104 02/10/2023 BILITOTAL 0.5 02/10/2023 Brief Summary of Labs for Discharge Summary: No discharge procedures on file. Current Outpatient Meds: Medication List for when you go home START taking these medications Ondansetron 4 MG ODT tablet Take 1 tablet by mouth every 8 hours as needed. Doctor's comments: Do not fill until day of surgery Commonly known as: ZOFRAN-ODT CHANGE how you take these medications atomoxetine 25 MG CAPS Take 1 capsule by mouth Twice daily. Commonly known as: STRATTERA What changed: Another medication with the same name was removed. Continue taking this medication, and follow the directions you see here. CONTINUE taking these medications buPROPion 300 MG tablet XL Take 1 tablet by mouth daily. Commonly known as: WELLBUTRIN Metoprolol succinate 50 MG tablet XL Take 1 tablet by mouth daily. pm Commonly known as: TOPROL-XL Misc. Devices MISC by Unknown route. BIPAP 10/6 cm H2O set up 07/23/22 -[facility] -on [address] As of 02/03/23 CPAP 6cm H2O omeprazole [address] capsule Take 1 capsule by mouth as needed. Commonly known as: PRILOSEC oxyCODONE 5 MG/5ML SOLN oral solution Take 5 mL by mouth every 6 hours as needed for up to 6 days. Doctor's comments: Do not fill until day of surgery Commonly known as: ROXICODONE For diagnoses: Morbid obesity with body mass index of 50 or higher, Essential hypertension tiZANidine 4 MG TABS Take 1 tablet by mouth as needed. Commonly known as: ZANAFLEX STOP taking these medications faMOTIdine 20 MG TABS Commonly known as: PEPCID multivitamin TABS VITAMIN B 12 PO Follow-up: No follow-up provider specified. Upcoming Appointments (up to five)-Some appointments for Medical Center outpatient clinics or diagnostic testing locations are not displayed below Provider Department Dept Phone 03/24/2023 10:15 AM Jimena Gracia [facility] [phone] 05/08/2023 2:00 PM Octavio [facility] Nutrition and Dietetics [phone] documented in this [facility] History of Present illness Narrative* LUISA Paul - 03/12/2023 9:38 AM EDT 03/12/23 0916 Referral Information Arrived From home or self-care Information Source Information Source patient ;spouse Information Source Name Archie Weir Information Source Number [phone] Readmission Information Was patient readmitted within 30 Days? No Contact Information Director Data Management/SW Added to Care Team Yes This Order Control Clerk Blood Bank is Primary Director Data Management/SW Yes Social Work Contact Name Shalini Rolon [employer] Nurse's Outpatient Providers Outpatient Providers Updated In IHIS Yes Living Environment Lives With spouse;child(anders), dependent Living Arrangements house Provides Primary Care For no one Primary Care Provided By self Support System Immediate family Able to Return to Prior Arrangements yes Functional Status Patient's Functional Status Prior To This Admission? Independent Are There Status Changes This Admission? No Changes Observed Since Admission? No Changes Observed Concerns With Patient Being Able To Care For Themselves At Discharge? No Can Support Person Meet The Care Needs Of The Patient? Yes Employment/Financial Employed? 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 Spouse financially supports family.) Financial Concerns none Insurance Medical Insurance Verified Yes Prescription Coverage Yes Pharmacy updated in IHIS Yes Initial Discharge Planning Home Care Services (GUM MACHINE OPERATOR) No Patient Goal for Discharge Get better Assessment/Concerns to be Addressed Concerns To Be Addressed no discharge needs identified Initial Discharge Planning Home Therapies (GUM MACHINE OPERATOR) None DME (GUM MACHINE OPERATOR) None Medical Supplies (GUM MACHINE OPERATOR) None Anticipated discharge disposition Home Anticipated Changes Related to Illness none Transportation Available car Home Care Services (GUM MACHINE OPERATOR) Additional Home Care Services (GUM MACHINE OPERATOR) no Referral received. Chart reviewed. Assessment completed with patient, spouse at bedside. Aye lives at home with her spouse and three children. She is independent with mobility, independent with self care. 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 Pt is current with her primary care doctor, able to afford her medications. She plans to return home when medically ready, no SW needs. COMPRESSOR MECHANIC BUS available if needs arise. Discharge Plan Return home. * Octavio Noni, RD - 03/12/2023 9:24 AM EDT INPATIENT POST BARIATRIC SX NUTRITION ASSESSMENT Ms. Aye Weir is a 28 y.o. female was admitted to [facility] for: 1. Morbid obesity with body mass index of 50 or higher 2. Essential hypertension 3. Preop testing Nutrition Assessment Subjective Assessment: Pt is POD #1 from [facility] w/ Dr. Gracia with a presurgical weight of 315 lbs 6.4 oz. Met with pt today to discuss nutrition discharge plans. Pt is tolerating Phase 1 of the bariatric diet well. Pt is tracking fluid intake and total since surgery is 26 oz with a goal of 40 oz totalprior to discharge. Advised pt that Herb is available to purchase through cafeteria if desired. Ptdenies any issues tolerating 1 oz every 15 minutes and feels confident going home from a nutrition standpoint. Pt reports she does not like the jello at all due to taste but is tolerating the ensure max protein shake and water fine. We reviewed the 5 phases of the bariatric diet and samples were giv en to patient for her vitamins and minerals that she will start taking at her [address] Gracia. Pt denies any further questions/concerns. Educated pt regarding the followin. Phases of the Bariatric Post-op diet and how to transition 2. Goals for adequate fluid intake 3. Vitamin and mineral supplements post-op: No need to add these into daily regimen until approved by surgeon 4. Bariatric nutrition goals: avoiding carbonation, caffeine, alcohol; <10 gms sugar per meal; small sips/bites, 1/4 - 1/2 cup portions at each meal; take 20- 30 minutes per meal; how to consume adequate protein and specific protein goal Pt was provided with: 1. RYGB and Sleeve Gastrectomy Discharge Nutrition Therapy (NCM) 2. Bariatric and/or Clinical RD contact information Pt agreeable to all recommendations, nutrition goals, and nutrition plan for discharge. Anthropometrics: Ht Readings from Last 1 Encounters: 03/11/23 1.676 m (5' 6) Wt Readings from Last 10 Encounters: 03/12/23 (!) 143.1 kg (315 lb 6.4 oz) 02/24/23 (!) 139.3 kg (307 lb) 02/19/23 (!) 139.3 kg (307 lb) 10/30/22 (!) 144.7 kg (319 lb) 01/09/22 (!) 146.7 kg (323 lb 6.4 oz) 12/24/21 (!) 147.2 kg (324 lb 9.6 oz) 10/25/21 (!) 145.2 kg (320 lb 3.2 oz) 03/21/21 (!) 152 kg (335 lb) 03/18/21 (!) 152 kg (335 lb) 02/18/21 (!) 152 kg (335 lb) [place] body weight: 59.3 kg (130 lb 11.7 oz) Adjusted ideal body weight: 92.8 kg (204 lb 9.6 oz) Body mass index is 50.91 kg/m . EER: Calories: 1480 kcal/day (25 kcal/kg IBW) Protein: 65-89 gm/day (1.1-1.5 gm/kg IBW) Fluid: >64 oz/day Current Diet Orders Procedures DIET LIQUID Bariatric Clear Liquid Diet Standing Status: Standing Number of Occurrences: 1 Nutrition-Related Hx: Appetite: fair Nausea: No Vomiting: No Diarrhea: No PMH: Past Medical History: Diagnosis Date Anxiety Asthma Essential hypertension, benign GERD (gastroesophageal reflux disease) Hypothyroidism MANI (obstructive sleep apnea) PSH: Past Surgical History: Procedure Laterality Date GASTRECTOMY LONGITUDINAL (SLEEVE) ROBOTIC N/A 03/11/2023 Laterality: N/A; Surgeon: Jimena Gracia DO; Location: [facility] ONT OR EXCISION GANGLION CYST Right 03/2022 hand EGD W/ BX N/A 03/21/2021 Laterality: N/A; Surgeon: Rajiv Kemp MD; Location: [facility] ONT ENDOSCOPY DILATION AND CURETTAGE 2018 REPAIR TENDON Left left hand Nutrition-Related Labs: Lab Results Component Value Date GLUCOSE 112 (H) 03/12/2023 GLUCOSE 168 (H) 03/11/2023 GLUCOSE 95 03/11/2023 HGBA1C 5.7 02/10/2023 SODIUM 138 03/12/2023 POTASSIUM 4.3 03/12/2023 MAGNESIUM 2.3 03/11/2023 PHOSPHORUS 2.8 03/11/2023 CALCIUM 8.7 03/12/2023 ALBUMIN 4.5 02/10/2023 TP 7.6 02/10/2023 BUN 10 03/12/2023 CREATSERUM 0.68 (L) 03/12/2023 AST 27 02/10/2023 ALT 23 02/10/2023 HGB 12.2 03/12/2023 HCT 38.0 03/12/2023 IRON 93 02/10/2023 WBC 12.1 (H) 03/12/2023 RBC 4.36 03/12/2023 B12 594 02/10/2023 PWCI36MCP 44.6 02/10/2023 FOLATE >20.0 (H) 02/10/2023 Nutrition Diagnosis NI-1.2 Inadequate energy intake related to recent bariatric sx as evidenced by bariatric Clear liquid diet. NC-1.4 Altered GI function related to alteration to structure of GI track as evidenced by recent bariatric sx: VSG. Intervention Provided nutrition education as described above Monitoring & Evaluation 1. Monitor patient weight, labs, PO intake and tolerance to diet 2. Patient verbalized acknowledgement that follow up visits with a dietitian can be scheduled outpatient & knows to place call to RD or bariatric clinic to set up appointments as needed/desired 3. Patient to call RD, bariatric clinic, or surgeon should any issues, concerns, or questions ariseafter discharge Time spent with pt: 15 minutes BRODY Watts Registered Dietitian, Licensed Dietitian 03/12/23 documented in this [facility] Progress note* Therapy Note - Anthony Whitmore PT - 03/12/2023 9:30 AM EDT PT evaluation orders received, medical chart reviewed. Patient admitted 03/11/23 s/p gastric sleeveprocedure per Dr. Gracia. Patient approached this morning for assessment, patient states ambulating independently without difficulty, declines need for skilled PT services. Discussed HEP and to continue with regular activity. PT will sign-off from caseload at this time. Anthony Whitmore, PT 03/12/2023 9:31 AM [facility] Work Phone: [phone] Nurse Note* Nursing Notes - Hilda Ho RN - 03/12/2023 3:55 AM EDT Patient resting in bed. Assessment unchanged from prior. Patient denies any needs. Call light within reach. [facility]10-11-2023 Nurse Note* Nursing Notes - Hilda Ho RN - 03/11/2023 11:32 PM EDT Assessment unchanged from prior. Patient does state her nausea is a lot better. Call light within reach. SCDs on. Denies any other needs. [facility]10-11-[facility]23 Nurse Note* Cara Malcolm RN - 03/11/2023 5:50 PM EDT Patient transferred to [facility] via cart in stable condition. Report given to Med/surgical rn. Cart left inlocked and lowest position with side rails up x2. call light given to patient. Monitors and alarms on and attached to patient. * John Pradhan RN - 03/11/2023 1:55 PM EDT Patient transported to PACU with Cody AMANDA. Reports given to Erendira SERRATO at 1355H. * John Pradhan RN - 03/11/2023 12:00 PM EDT OR 1 Temperature 67F Humidity 44% documented in this encounterKet[facility]10-[facility] Nurse Surgical operation note* Cara Malcolm RN - 03/11/2023 5:50 PM EDT Patient transferred to [facility] via cart in stable condition. Report given to Med/surgical rn. Cart left inlocked and lowest position with side rails up x2. call light given to patient. Monitors and alarms on and attached to patient. [facility]10-11-2023 Hospital Discharge instructions* Discharge Instructions* Jimena Gracia DO - 03/11/2023 2:05 PM EDT Aye Weir 1995 PRINCIPAL DIAGNOSIS: Morbid Obesity OTHER DIAGNOSES: Active Problems: S/P gastric sleeve procedure Primary Care: Sierra Santos Other Providers: Procedures while hospitalized: Laparoscopic sleeve gastrectomy Wound care: You may shower and wash your abdomen with mild soap and water. Pat incisions to dry. Donot soak in a bath or pool for at least 2 weeks. Your incisions are closed with dissolvable stitches and skin glue. The glue will peel off on its own after about 1 week. Activity: You may walk and climb stairs as tolerated. You should not lie or sit down for more than 1 hour at a time except for when sleeping at night. Activity is important to prevent blood clots. Noheavy lifting of objects greater than 15 lbs[address] or returning to work until you no longer require narcotic pain medications. Diet: Follow your diet as instructed in the diet handbook Remember to drink at least 64 oz of liquids per day and try to take in 40-60 grams of protein. Avoid straws and carbonated beverages. Take small sips every couple of minutes. Your water bottle is your best friend and you shouldn t go anywhere without it! Warning: If you experience severe pain, fever over 101 F, redness or drainage from incisions, nausea/vomiting that lasts more than 12 hours, rapid heart rate or shortness of breath, call your surgeonimmediately. You do not need to begin taking your vitamins until instructed by your surgeon at your first follow-up visit. Please consult your medical doctor regarding adjusting your medications after surgery (particularlydiabetic and blood pressure medications). Follow up with Dr. Gracia at your scheduled visit or call for an earlier appointment if having issues or concerns. Today you received a medication called Bridion (also called Sugammadex). This medication was used to reverse the effects of anesthesia at the end of your procedure in order for your body to start theprocess of awakening from sedation and relaxation and to begin breathing on your own. Like all medication, Bridion (Sugammedax) can interact with other medications that you may take. Inparticular, hormonal contraceptives such as control pills, vaginal ring, implant, or intrauterine device (IUD) may be made less effective by Bridion (Sugammadex) by temporarily reducing the amount of hormone you receive and therefore may not work as well to prevent The amount of your normal hormonal contraceptive that is lost is about the same as missing one oral contraceptive pill. If you currently use a hormonal contraceptive you should use an additional non-hormonal or backup method such as condom or spermicides for the next seven days. * Discharge Instr - Activity* Ethel Menjivar RN - 03/12/2023 2:24 PM EDT Resume activity as tolerated * Attachments The following attachments cannot be sent through Care Everywhere. * Pain and Pain Control ([facility]) (Vietnamese) documented in this encounterKet[facility]10[facility] Nurse Surgical operation note* John Pradhan RN - 03/11/2023 1:55 PM EDT Patient transported to PACU with Cody AMANDA. Reports given to Erendira SERRATO at 1355H. [facility]10-11-2023 Progress note* Certification - Jimena Gracia DO - 03/11/2023 1:31 PM EDT I certify that this patient requires inpatient services at this time. I anticipate the expected length of stay will include at least two midnights. Current treatment plan includes pain and nausea control. Plans for post hospitalization care will be discharge to home. [facility]10-11-2023 Surgery Postoperative evaluation and management note* Op Note - Jimena Gracia DO - 03/11/2023 1:28 PM EDT Operative Report DATE OF SERVICE: 03/11/2023 NAME: Aye Weir CSN: [id number] PRE OP DIAGNOSES: Morbid obesity with HTN POST OP DIAGNOSES: Morbid obesity with HTN INDICATION FOR PROCEDURE: This patient is a pleasant 28 y.o. female suffering from morbid obesity and its comorbidities. After being seen in the clinic, She was found to be an appropriate candidate for a laparoscopic sleeve gastrectomy. OPERATIONS PERFORMED: Laparoscopic sleeve gastrectomy, robotic assisted, interpretation of ICG for perfusion SURGEON: Jimena Gracia DO METALIZING SUPERVISOR: Surgical Staff: Chief Bank Examiner: Gricelda Polk RN; John Pradhan RN Scrub Person: Christiano Tracy Billing Auditor Plant Maintenance Worker: Priyanka Mckeon ANESTHESIA: GETA ESTIMATED BLOOD LOSS IN MLS: 20 COMPLICATIONS: None SPECIMEN: stomach PREOPERATIVE NOTE: The contemplated operative procedure, risks, benefits and alternatives to this procedure have been discussed with this patient and/or legal community relations representative. The patient and/or legal community relations representative acknowledge(s) understanding of the above and consent(s) to the procedure. OPERATIVE PROCEDURE: The patient was given intravenous antibiotics, sequential stockings, subcutaneous heparin in the preoperative area. After informed consent, the patient was transferred to the operating room, placed in a supine position, and underwent general anesthesia. The abdomen was prepped and draped in the usual sterile fashion using ChloraPrep. Next a timeout was obtained that revealed the correct patient, position, and laterality of the procedure. Once this was done, a 1 cm transverse incision was made approximately 15 cm below the xiphoid and approximately 2 cm to the left of the midline. A 5 mm scope was then inserted into the abdomen under direct visualization without difficulty. The abdomen was then insufflated with CO2 to a pressure of 15 mmHg. An angled laparoscope was then inserted and additional ports were placed. 2 left-sided 8 mmtrochars were placed under direct visualization. This was then followed by a 12 mm right-sided trocar and another 8 mm air seal trocar. The patient was then placed in 20 of Trendelenburg and the da Jimmie robot was docked to the patient in the usual fashion. I then took my position at the surgical co [facility]. The liver was then retracted superiorly medially revealing the anterior border of the vinh and the freehold liver retractor system was anchored at this point and then to the anterior abdominalwall superiorly and right lateral to provide adequate liver retraction. The calibration tube was then passed by anesthesia into the stomach and the stomach was suctioned. No hiatal hernia was noted. Following this, I measured 6 cm from the pylorus and began to take down the greater curve. I used the vessel sealer to divide the omentum along the greater curvature of the stomach. This was taken from 6 cm proximal of the pylorus to the angle of Hiss. The short gastric vessels were divided during this process. Following this, the calibration tube was secured along the lesser curvature and the 60mm stapler with a green load was inserted and fired using the calibration tube as a guide. This wasfollowed by a blue load and then the remainder of the sleeve was created with white loads. A leak test was then completed using 100 mL of saline mixed with 8 mL of ICG. No leak was identified. Following this, 2 mL of ICG was injected intravenously and perfusion of the stomach was confirmed. The stomach was then suctioned via the calibration tube which was then removed. Hemostasis was confirmed. The freehold retraction system was then removed from the patient. The specimen was removed through the 12 mm fascial site. It was then passed off to the back table and sent to pathology. The 12 mm fascial site was then closed with a 2-0 Vicryl in a posterior fashion. The robot was then undocked. All skin incisions were then closed with 4-0 Monocryl in a subcuticular fashion and sterile dressings were then applied. The patient tolerated the procedure well. All counts were correct at the end the procedure. The patient was transferred to PACU in stable condition. Jimena Gracia DO 1:28 PM [facility]10-11-2023 Nurse Surgical operation note* John Pradhan RN - 03/11/2023 12:00 PM EDT OR 1 Temperature 67F Humidity 44% [facility]09-21-2023 History of Present illness Narrative* Jimena Wolff Gracia, DO - 02/19/2023 11:30 AM EDT Bariatric History and Physical Patient:Aye Weir :1995 Date: 02/19/2023 PRIMARY/REFERRING PHYSICIAN INFORMATION Sierra Santos HISTORY OF PRESENT ILLNESS Aye Weir is a 28 y.o. female who presents for her preoperative appointment. she has completed all of her preoperative requirements and insurance approval has been obtained. All of her questions and concerns have been addressed in the office today. Past Medical History: Diagnosis Date Anxiety Asthma Essential hypertension, benign GERD (gastroesophageal reflux disease) Hypothyroidism Past Surgical History: Procedure Laterality Date EGD W/ BX N/A 03/21/2021 Laterality: N/A; Surgeon: Rajiv Kemp MD; Location: [facility] ENDOSCOPY DILATION AND CURETTAGE 2018 REPAIR TENDON Left left hand Current Outpatient Medications Medication Sig atomoxetine 25 MG capsule Take 1 capsule by mouth Twice daily. buPROPion 300 MG tablet XL faMOTIdine 20 MG tablet Take 1 tablet by mouth 2 times daily. metoprolol succinate 50 MG tablet XL Take 1 tablet by mouth daily. Misc. Devices Misc by Unknown route. BIPAP 10/6 cm H2O set up 07/23/22 -[facility] As of 02/03/23 CPAP 6cm H2O omeprazole [address] capsule tiZANidine 4 MG tablet Take by mouth Every 8 hours. atomoxetine 25 MG capsule (Patient not taking: Reported on 02/19/2023) Ondansetron 4 MG Tab Dispersible tablet Take 1 tablet by mouth every 8 hours as needed. oxyCODONE 5 MG/5ML Solution oral solution Take 5 mL by mouth every 6 hours as needed for up to 6 days. Allergies Allergen Reactions Morphine Hives Social History Socioeconomic History Marital status: Spouse name: Not on file Number of children: Not on file Years of education: Not on file Highest education level: Not on file Occupational History Not on file Tobacco Use Smoking status: Former Smokeless tobacco: Never Vaping Use Vaping Use: Never used Substance and Sexual Activity Alcohol use: Yes Comment: social Drug use: Never Sexual activity: Not on file Other Topics Concern Not on file Social History Narrative Not on file Social Determinants of Health Financial Resource Strain: Not on file Food Insecurity: Not on file Transportation Needs: Not on file Physical Activity: Not on file Stress: Not on file Social Connections: Not on file Intimate Partner Violence: Not on file Housing Stability: Not on file No family history on file. No family status information on file. REVIEW OF SYSTEMS Review of Systems Constitutional: Negative for chills, diaphoresis and fatigue. HENT: Negative for congestion, facial swelling and hearing loss. Eyes: Negative for pain, redness and itching. Respiratory: Negative for apnea, cough, choking and chest tightness. Cardiovascular: Negative for chest pain, palpitations and leg swelling. Gastrointestinal: Negative for abdominal distention, abdominal pain, constipation, diarrhea, nauseaand vomiting. Endocrine: Negative for cold intolerance, heat intolerance and polyphagia. Genitourinary: Negative for difficulty urinating, dysuria, enuresis and flank pain. Musculoskeletal: Negative for arthralgias, back pain, gait problem and joint swelling. Skin: Negative for color change, pallor and rash. Allergic/Immunologic: Negative for environmental allergies, food allergies and immunocompromised state. Neurological: Negative for dizziness, light-headedness, numbness and headaches. Hematological: Negative for adenopathy. Does not bruise/bleed easily. Psychiatric/Behavioral: Negative for agitation, behavioral problems and confusion. Social History Tobacco Use Smoking Status Former Smokeless Tobacco Never PHYSICAL EXAM General Appearance: Well appearing, alert, in no acute distress, well-hydrated, well nourished., morbidly obese. Eyes: conjunctivae and sclerae normal, pupils equal, round, reactive to light and accommodation andno scleral icterus. Ears/Nose/Mouth/Throat: External ears normal, canals clear, TM's normal, Nares normal. Septum midline. Mucosa normal. No drainage or sinus tenderness., Lips, mucosa, and tongue normal, teeth and gumsnormal, oropharynx normal. Neck: Supple, no adenopathy; thyroid symmetric, normal size, no bruits. Respiratory: Clear to auscultation bilaterally Cardiovascular: Regular rate and rhythm, distal pulses intact bilaterally. Abdomen: soft, non-tender, non-distended, obese, no hernias palpated Lymph Nodes: No cervical lymphadenopathy. Musculoskeletal: Spine range of motion normal. Muscular strength intact, No joint swelling, deformity, or tenderness. Skin: No lesions noted. Neurologic: mental status intact, cranial nerves 2-12 intact, sensation to light touch and pinpricknormal. Psychiatric: A&O x 3; Judgement/lnsight appropriate Rectal: deferred exam. DIAGNOSIS/IMPRESSION Encounter Diagnoses Name Primary? Morbid obesity with body mass index of 50 or higher Yes Essential hypertension with Body mass index is 49.55 kg/m2. SURGICAL PLAN Surgical Procedure: Laparoscopic Sleeve gastrectomy. I have use an anatomical chart to show the postsurgical changes that occur. I discussed expected weight loss with this procedure and I talked about common early and late complications associated with his procedure. This list included but was not limited to leaks, strictures, bleeding, postoperative infection, hernias and small bowel obstructions. I discussed dumping syndrome in detail how dietary choices can worsen this problem. I discussed the need for vitaminsand postoperative.. I have discussed postsurgical follow-up. I discussed the need for supervised medical weight loss prior to surgery as well as mental health examination evaluation. All risks and benefits were discussed with the patient including: Intra- operative and/or Immediate Post-operative Risks: : The mortality rate of the sleeve gastrectomy nationwide is 0.3% to 2%. Modality rate associated with the gastric bypass is slightly higher-0.5 to 3%. Significant Bleeding: Bleeding may occur unexpectedly in the operating room. Bleeding may also occur post-operatively in the days after the operation. This bleeding may be through the intestinal tract at the staple line and result in the passage of blood in the stool. Bleeding may also be unseen inside the abdomen and be diagnosed through other means. A transfusion may be necessary in some circumstances. Re-operation to stop bleeding may be necessary. If the spleen is injured during the surgery, it may need to be removed. Anastomotic Leak: A leak is when the stapled part of the stomach does not heal. Serious complications can result from a leak, including, but not limited to a prolonged hospital stay, more operations,a long period of nothing to eat, prolonged antibiotic requirements, organ failure and . The reported incidence of anastomotic leak nationwide ranges from 0.5% to 3%. Renal Failure: Transient kidney (renal) failure occurs rarely. Irreversible kidney failure has beenreported in rare cases. Prolonged Ventilation: A prolonged stay on a ventilator (breathing machine) in the intensive care unit may occur if a patient has severe sleep apnea or after certain significant complications. A temporary tracheostomy may be necessary. Heart Attack: Although a heart attack is possible after a laparoscopic possible open sleeve gastrectomy, it is very rare. Risk factors for heart disease include increased age, diabetes, hypertension,hypercholesterolemia and a family history of heart disease. Prolonged Hospital Stay: Unforeseen complications may result in a prolonged hospital stay. Intensive care admission may be required. Bowel Obstruction (in undergoing the gastric bypass): An obstruction can occur that would require re-operation. An obstruction can occur from a number of causes, such as bleeding, scarring, technicalproblems or hernia. Deep Vein Thrombosis (DVT)/Pulmonary Embolism: Blood clots that form in the legs, and elsewhere, and break off into the lungs may cause . Given this risk, treatments may be initiated to decreasethe risk for the formation of blood clots, including the use of heparin (a medication that thins the blood), special foot and leg stockings, walking soon after surgery and medication at home after discharge from the hospital. Completely eliminating the risks of DVT (clots) altogether is not possible. The risks associated with the medications used to prevent blood clots can include excessive bleeding. Any symptoms of leg swelling, chest pain or sudden shortness of breath should be immediately rep orted to the surgeon. Rarely, patients develop allergies to heparin, sometimes causing very severe reactions. Other Complications that may be common: Allergic reactions, headaches, itching, medication side-effects, heartburn/reflux, bruising, gout, anesthetic complications, injury to the bowel or vessels, gas bloating, minor wound drainage, wound opening, scar formation, stroke, urinary tract infection, uri nary retention, pressure sores, injury to spleen or surrounding structures, and pneumonia. Education materials have been provided to the patient regarding post operative fluid intake goals. Understanding of the goals was confirmed. The patient was advised not to become within 12-18 months following bariatric surgery. Shewas educated on the increased risks to mother and fetus associated with within 2 years ofbariatric surgery. The patient has also been instructed to refrain from smoking and using illicit drugs both before and after their surgery. I have discussed at length the risks of office visits and surgical procedures at the hospital during the COVID-19 pandemic. The risk of daquan COVID-19 during the perioperative and postoperativecare period was also explained to the patient. The patient verbalized full understanding and acceptance of these risks, as well as the quarantine time between testing and surgery. The patient fully understands that if their COVID-19 test is positive or symptoms develop prior to surgery, their surgery will be cancelled. The patient has expressed the desire to proceed with the proposed surgery and any hospital stay required. I spent greater than 30 minutes in total reviewing the patient's chart, interviewing the patient, and documenting today's visit. Jimena Gracia DO 02/19/2023 11:33 AM Bariatric Surgery [facility] History of Present illness Narrative* Sierra Santos, - 01/22/2023 4:00 PM EDT Subjective Patient ID: Aye Weir is a 27 y.o. female who presents for Follow-up (Discuss medications ). HPI Patient is here today for concerns for ADHD. She reports that now that she is back in school, last semester has been having more problems in school, got her first c. She was on Ritalin when she was younger, for about a year and a half. She was diagnosed with ADHD at age 13. She is currently on wellbutrin 300mg po daily. Review of Systems Psychiatric/Behavioral: +ADHD Objective BP 127/75 (BP Location: Right arm, Patient Position: Sitting, BP Cuff Size: Adult) Pulse 74 Ht 1.676 m (5' 6) Wt 140 kg (309 lb) BMI 49.87 kg/m Physical Exam Constitutional: General: She is not in acute distress. Appearance: Normal appearance. HENT: Head: Normocephalic. Nose: Nose normal. Mouth/Throat: Mouth: Mucous membranes are dry. Pharynx: No oropharyngeal exudate. Eyes: General: Right eye: No discharge. Left eye: No discharge. Extraocular Movements: Extraocular movements intact. Pupils: Pupils are equal, round, and reactive to light. Cardiovascular: Rate and Rhythm: Normal rate and regular rhythm. Heart sounds: No murmur heard. No gallop. Pulmonary: Effort: Pulmonary effort is normal. No respiratory distress. Breath sounds: Normal breath sounds. No wheezing. Musculoskeletal: General: No swelling. Normal range of motion. Skin: General: Skin is warm and dry. Coloration: Skin is not jaundiced. Neurological: General: No focal deficit present. Mental Status: She is alert and oriented to person, place, and time. Cranial Nerves: No cranial nerve deficit. Psychiatric: Mood and Affect: Mood normal. Behavior: Behavior normal. Assessment/Plan Problem List Items Addressed This Visit Attention deficit hyperactivity disorder (ADHD), combined type - Primary Relevant Medications atomoxetine (Strattera) 25 mg capsule ADHD - on wellbutrin already with no change - will try strattera 25mg po daily Final diagnoses: [F90.2] Attention deficit hyperactivity disorder (ADHD), combined type [facility] Work Phone: [phone]) 397-670706-22-2023 Telephone encounter Note* Telephone Encounter - Marjorie Welch - 11/20/2022 7:13 AM EDT Printed [id number] Miscellaneous Notes* Telephone Encounter - Marjorie Welch - 11/20/2022 7:13 AM EDT Printed * Telephone Encounter - Kim Zayas MA - 11/19/2022 3:53 PM EDT ROUTING TO NEW PATIENT TEAM. * Telephone Encounter - Liz Chen - 11/19/2022 2:07 PM EDT Name of Caller: Aye Contact Reason for Appointment: Aye submitted an online request on 11/18/22 regarding a call back to get scheduled for a BAND TEACHER appt for Gastric Bypass Consult. Aye states she has met all insurance requirements. Aye states she would like to get scheduled for the first available appt. Aye states she is available for call back anytime. Please contact Aye and janicee. [facility] Medication Refills need, if any: N/A Medication Name: N/A documented in this encounterSSub[facility] [id number] Telephone encounter Note* Telephone Encounter - Kim Zayas MA - 11/19/2022 3:53 PM EDT ROUTING TO NEW PATIENT TEAM. [facility] [id number] Telephone encounter Note* Telephone Encounter - Liz Chen - 11/19/2022 2:07 PM EDT Name of Caller: Aye Contact Reason for Appointment: Aye submitted an online request on 11/18/22 regarding a call back to get scheduled for a BAND TEACHER appt for Gastric Bypass Consult. Aye states she has met all insurance requirements. Aye states she would like to get scheduled for the first available appt. Aye states she is available for call back anytime. Please contact Aye and nic. 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 Occasional Do you experience tossing or turning at night? YES Restless legs - NO Are you currently or have you previously been treated for ADHD, Narcolepsy, or Fatigue? - NO Waking with gasping/shortness of breath - NO Difficulty concentrate- - NO Waking with headache- YES when using CPAP machine Significant weight change- NO Have you ever been on medication management for weight loss, spoke with anyone about weight loss surgery/procedures, or have you had a surgical procedure to help with weight loss? NO Pain 0-10- 0 Upcoming surgeries?- YES Gastric bypass Has witnessed apnea ( some body told patient that they stop breathing in their sleep) - NO Med Refills (that we prescribe) - no * Shavonne Briseno, RADIOGRAPHER ANGIOGRAM-TELETYPESETTER MONITOR - 10/30/2022 2:15 PM EDT HPI: SUBJECTIVE: Aye Weir is a 27 y.o. female being seen today for sleep follow up via telehealth. Most recent sleep testing showed: obstructive sleep apnea (AHI 5.4/hr) with sleep related hypoxia (phil 87%) and problem is likely to result in a high risk morbidity without treatment. Currently on home BiPAP at 10/6 cmH2O. Patient most recent PAP machine is from 07/23/2022. Patient stated that she is benefiting from the therapy. Her compliance is average--poor. She feels since she is sleeping in a chair sitting up that she feels better throughout the day without wearing her pap therapy. Given that her apnea events were hypopneas and positional-supine position, patient may try positional therapy moving forward since she has failed PAP therapy. Current sleep problems/side effects include: struggling keeping mask on her face at night, removing while sleeping. Patient denies snoring during therapy.Patient denies other sleep concerns today. Patient needs bariatric weight loss surgery clearance. History and Allergies Allergies Allergen Reactions Morphine Hives Past Medical History: Diagnosis Date Anxiety Asthma Essential hypertension, benign GERD (gastroesophageal reflux disease) Hypothyroidism Past Surgical History: Procedure Laterality Date EGD W/ BX N/A 03/21/2021 Laterality: N/A; Surgeon: Rajiv Kemp MD; Location: [facility] ENDOSCOPY DILATION AND CURETTAGE 2018 REPAIR TENDON Left left hand Social History Socioeconomic History Marital status: Spouse name: Not on file Number of children: Not on file Years of education: Not on file Highest education level: Not on file Occupational History Not on file Tobacco Use Smoking status: Former Smokeless tobacco: Never Vaping Use Vaping Use: Never used Substance and Sexual Activity Alcohol use: Yes Comment: social Drug use: Never Sexual activity: Not on file Other Topics Concern Not on file Social History Narrative Not on file Social Determinants of Health Financial Resource Strain: Not on file Food Insecurity: Not on file Transportation Needs: Not on file Physical Activity: Not on file Stress: Not on file Social Connections: Not on file Intimate Partner Violence: Not on file Housing Stability: Not on file History reviewed. No pertinent family history. Vitals: 10/30/22 1419 BP: 118/76 Pulse: 81 Temp: 99 degrees F (37.2 degrees C) TempSrc: Temporal SpO2: 96% Weight: (!) 144.7 kg (319 lb) Height: 1.676 m (5' 6) Physical Examination [facility] and physical exam was unable to be performed. 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 Occasional Do you experience tossing or turning at night? YES Restless legs - NO Are you currently or have you previously been treated for ADHD, Narcolepsy, or Fatigue? - NO Waking with gasping/shortness of breath - NO Difficulty concentrate- - NO Waking with headache- YES when using CPAP machine Significant weight change- NO Have you ever been on medication management for weight loss, spoke with anyone about weight loss surgery/procedures, or have you had a surgical procedure to help with weight loss? NO Pain 0-10- 0 Upcoming surgeries?- YES Gastric bypass Has witnessed apnea ( some body told patient that they stop breathing in their sleep) - NO Med Refills (that we prescribe) - no CURRENT MEDICATIONS: Current Outpatient Medications Medication Sig Dispense Refill buPROPion 300 MG tablet XL metoprolol succinate 50 MG tablet XL Take 1 tablet by mouth daily. Misc. Devices Misc by Unknown route. BIPAP 10/6 cm H2O set up 07/23/22 -[facility] omeprazole [address] capsule tiZANidine 4 MG tablet Take by mouth Every 8 hours. faMOTIdine 20 MG tablet Take 1 tablet by mouth 2 times daily. (Patient not taking: Reported on 10/30/2022) 60 tablet 3 No current facility-administered medications for this visit. Lungs: Clear to auscultation bilaterally. Heart: Regular in rate and rhythm. Abd: Soft and non-distended. Skin: No obvious rashes or cyanosis. Neuro: Grossly non-focal examination. MS: No joint erythema/edema. ROS Reviewed. Interpretation of sleep study and compliance report form was completed today and reviewed together with the patient during this visit. ASSESSMENT & PLAN: * MANI * Sleep Related Hypoxia * Overweight * Reviewed CPAP Compliance Form * Surgery Clearance * Patient was advised to continue with positive pressure therapy at home. * Patient was advised to adhere to a regular sleep hygiene habits. * Reinforced: adverse consequences of MANI, compliance, wt loss, side sleeping if feasible, sleep hygiene (and avoid/minimize alcohol, sedative/respiratory depressant meds, nicotine/smoking cessation:quit), not driving/operating machinery while sleepy. * Patient states understanding sleep apnea education, risk associated, and positional therapy to correct apnea events. * Patient will follow up PRN * Patient is cleared for bariatric surgery from a sleep apnea standpoint Discussed with patient: the physiology of Sleep Apnea, medical conditions associated with sleep apnea (DM, HTN, CAD, Depression, Stroke, Headaches, CHF, Heart Dysrhythmias) and treatment options. Advised patient to avoid activities that could harm self or others when tired/sleep, including driving and/or operating heavy machinery. Depending on polysomnography results: - Order PAP titration based on insurance requirements, if already on therapy continue therapy, or if symptomatic with high AHI complete another titration. - Will start/continue PAP therapy after results of PAP titration - I will have prescription sent to a [email or web address] company of choice- who will becalling patient in approximately next 1-2 weeks. - Patient should be eligible for new supplies approximately every 3-6 months, depending on your insurance coverage, [email or web address] company will inform patient of coverage - If patient mask does not fit well, contact [email or web address] company before 30 days are up to get a new mask without an additional charge - Insurance requires regular usage and periodic office follow ups for PAP therapy to continue to cover supplies Insurance Requirements: - Your insurance requires a [id number]-eowa follow up visit within 31-90 days period after starting PAP therapy. - Your insurance requires compliance with PAP therapy, which is at least 4 hours per night for 70% of the time. This must be done over at least 30 day period and must occur within the intial 31-90 day period after starting PAP therapy. - Your insurance also requires at least a yearly follow up to continue to pay for PAP therapy and supplies. This visit was completed via Zoom conference due to the restrictions of the COVID-19 pandemic. Patient verbally consents to the submissions of a Telehealth visit. Patient is aware of the risks, benefits, and possible coinsurance/copay cost. Patient was notified that Zoom communication may have privacy risks. Provider location [facility] Patient location is home address unless otherwise noted. A total of 30 minutes were spent at this encounter, and this includes obtaining and/or reviewing separately obtained history , performing exam, review of previous tests and results, independently interpreting results of tests and communicating results to the patient/family/caregiver, ordering medica tions/tests/procedures, counseling the patient and/family on plan of care, referring/communicating with other health health careers instructor, as well as documenting the clinical information in the EHR. This includes face to face time and preparing to see the patient (review of tests) I personally reviewed selected chart notes, results, interpreted tests, imaging today before seeingthe pt; reviewed and discussed w/ pt, questions answered. Portions of this chart were created using Dragon electronic dictation. Please excuse any typographical or grammatical errors contained herein as a result. Some Elements copied from previous notes. I have updated where appropriate, and all reflect current medical decision making from today's encounter. KAREY Em [facility] History of Present illness Narrative* Sierra Santos DO - 09/25/2022 3:00 PM EDT Subjective Patient ID: Aye Weir is a 27 y.o. female who presents for Alopecia. Visit was attempted to be conducted virtually but pt was unable to hear me, so was converted to telephone. Patient and physician were at 2 different locations and was verbally consented. HPI Patient reports that she has been noticing increasing hair loss with thinning hair and brittle nails, worse over the last 3 months. She has not had any sig change in her weight, she has cut out pop and been trying to diet. Patient reports no new medications otherwise. Doing well on wellbutrin. Diarrhea that she was having last October has resolved. Review of Systems Constitutional: Positive for fatigue. Negative for activity change, appetite change and unexpected weight change. HENT: Negative for congestion, hearing loss and mouth sores. Eyes: Negative for discharge and itching. Objective There were no vitals taken for this visit. Physical Exam No physical exam was completed due to virtual visit. Assessment/Plan Problem List Items Addressed This Visit None Visit Diagnoses Hair loss - Primary Relevant Orders TSH with reflex to Free T4 if abnormal Other fatigue Relevant Orders Vitamin B12 Comprehensive Metabolic Panel CBC and Auto Differential Screening for diabetes mellitus Relevant Orders Hemoglobin A1C Hair loss, fatigue - will order tsh, b12, a1c, cbc, cmp 2. Anxiety - continue wellbutrin 3. Will call with results and follow up as needed Final diagnoses: [L65.9] Hair loss [R53.83] Other fatigue [Z13.1] Screening for diabetes mellitus [facility] Work Phone: [phone]) 212-163810-03-2022 History of Present illness Narrative* Sarah Cleaning, TECHNOLOGIST - 03/03/2022 3:01 PM EDT Recent office vist, no covid screening needed documented in this [id number] History of Present illness Narrative* David Gallego - 02/27/2022 8:00 PM EDT Patient arrived at 2004 escorted to room 01. Test completed. The following is attached to the encounter: Test Data/Misc documented in this encounterK[facility]08[facility]26-[facility] History of Present illness Narrative* Errol Hernández - 01/24/2022 9:30 PM EDT ..Patient arrived 2129 and escorted to room 04 The following is attached to the encounter: Test Data/Misc documented in this encounterK[facility]08-01-20[facility] History of Present illness Narrative* Cassidy Thomas, COLLIN - 12/30/2021 3:00 PM EDT [facility] [address] [facility] [address] [facility] [id number] Aye Weir, 26 year old female, presents to the office today for a bump on her right wrist.She reports having this for years. She did at one point feel as though the bump went away but then soon came back. She did work in a position that was very repetitious and she is right handed. 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 She reports the wrist has just become very painful and otc pain medications are not helping. She is hoping to get this resolved and taken care of before she has to start back to school in March. She hasn't had any type of injection to the wrist. She denies any numbness or tingling into the hand or fingers. The patient's past medical history, surgical history, social history, family history, medications and allergies were reviewed with the patient today and are available in the chart for further review. Not on File No current outpatient medications on file. No past medical history on file. No past surgical history on file. Social History Socioeconomic History Marital status: ROS: Review of Systems Constitutional: Negative for activity change and fatigue. HENT: Negative for congestion, hearing loss and trouble swallowing. Eyes: Negative for visual disturbance. Respiratory: Negative for chest tightness and shortness of breath. Cardiovascular: Negative for chest pain and palpitations. Gastrointestinal: Negative for abdominal pain, diarrhea, nausea and vomiting. Endocrine: Negative for polydipsia, polyphagia and polyuria. Genitourinary: Negative for decreased urine volume, difficulty urinating and hematuria. Musculoskeletal: Positive for arthralgias, joint swelling and myalgias. Skin: Negative for color change, rash and wound. Allergic/Immunologic: Negative for immunocompromised state. Neurological: Negative for dizziness, weakness, light-headedness and numbness. Hematological: Does not bruise/bleed easily. Psychiatric/Behavioral: Negative for confusion and sleep disturbance. The patient is not nervous/anxious. PE: Physical Exam Constitutional: Appearance: She is well-developed. HENT: Head: Normocephalic. Eyes: Pupils: Pupils are equal, round, and reactive to light. Cardiovascular: Rate and Rhythm: Normal rate and regular rhythm. Pulmonary: Effort: Pulmonary effort is normal. Breath sounds: Normal breath sounds. Abdominal: General: Bowel sounds are normal. Palpations: Abdomen is soft. Musculoskeletal: General: Swelling, tenderness and deformity present. Normal range of motion. Cervical back: Normal range of motion and neck supple. Skin: General: Skin is warm and dry. Neurological: Mental Status: She is alert and oriented to person, place, and time. ORTHO: Right Hand Exam Tenderness The patient is experiencing tenderness in the dorsal area. Range of Motion Wrist Extension: normal Flexion: 80 (With pain) Pronation: normal Supination: normal Muscle Strength The patient has normal right wrist strength. Tests Phalen s Sign: negative Tinel's sign (median nerve): negative Meera's test: negative Other Erythema: absent Scars: absent Sensation: normal Pulse: present Comments: Hard palpable nodule located in the middle of the wrist joint. Imaging: R Wrist: no acute fracture or dislocation. No osseous abnormality. Assessment/Plan: After examination and reviewing of the patient x-ray images, we discussed treatment options. I did offer her to aspirate the cyst and inject with cortisone, explaining that this is the most common treatment for ganglion cysts. The patient does not want an injection and would ratherdiscuss surgical removal of the cyst. I did explain that a MRI would be needed for further diagnostic evaluation of the wrist. I will place that order and see her back for results. She verbalizes understanding and is in agreement with the treatment plan. documented in this [id number] History of Present illness Narrative* Kim Currie - 12/24/2021 2:45 PM EDT SLEEP Harper Score - 8 CPAP/BIPAP/APAP Pressure - N/A Neck Circumference - 16.5 Most Recent Sleep Study - N/A Oxygen Use - no If so, how many liters and is it PRN, Nocturnal, or continuous? Patient is benefiting from PAP therapy-- DME - N/A Referred by- Dr. 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 Pt states she will sleep 20-30 mins while laying her kids down for a nap Do you experience tossing or turning at night? YES Restless legs - YES but not often If so, what medications are you currently taking or have previously been prescribed for RLS? No Are you currently or have you previously been treated for ADHD, Narcolepsy, or Fatigue? - NO If so, what medications are you currently taking or have previously been prescribed for ADHD, Narcolepsy, or Fatigue? N/A Waking with gasping/shortness of breath - NO Difficulty concentrate- - NO Waking with headache- YES Significant weight change- YES slowly gaining stated thyroid isn't working well Have you ever been on medication management for weight loss, spoke with anyone about weight loss surgery/procedures, or have you had a surgical procedure to help with weight loss? YES upcoming bariatric Pain 0-10- 0 If yes, Location- Upcoming surgeries?- YES bariatric Has witnessed apnea ( some body told patient that they stop breathing in their sleep) - NO Med Refills (that we prescribe) - no Pt I here for bariatric clearance. She states that she is having issues with insomnia, and will take her muscle relaxer for her back that helps her sleep plus a 20mg Melatonin every other day. Pt states she has bad back issues, and that has her up a lot. She states she is unable to lay flat and sleep at this time. She states that she tosses and turns a lot, but that her restless legs is more rareand is able to stretch to help them stop to go to sleep. * Shavonne Briseno, RADIOGRAPHER ANGIOGRAM-TELETYPESETTER MONITOR - 12/24/2021 2:45 PM EDT JUAREZ Weir is a 26 y.o. female being seen today for sleep apnea evaluation. Patient was referred by bariatric provider to evaluate and treat sleep apnea and had a STOPBANG 4 score. She has been experiencing Sleep apnea: snoring, tossing and turning, restless legs, decreased memory, decreased concentration, excessive daytime sleepiness, difficulty falling asleep once awakened, feels sleepyduring the day, morning headaches and maintaining sleep. She wakes up multiple times a night and does not always feel refreshed in the morning. She also reports sleepiness while reading, watching television. Patient states they suffer from insomnia and currently taking melatonin and tizanidine, which they feel is beneficial. Patient denies other sleep concerns at today's appointment. Patient is scheduled for bariatric surgery in the near future. Vitals: 12/24/21 1518 BP: 130/86 Pulse: 85 Resp: 16 SpO2: 97% Weight: (!) 147.2 kg (324 lb 9.6 oz) Height: 1.676 m (5' 6) Physical Exam Vitals and nursing note reviewed. Constitutional: General: She is not in acute distress. Appearance: She is well-developed. HENT: Head: Normocephalic and atraumatic. Right Ear: External ear normal. Left Ear: External ear normal. Nose: Nose normal. Eyes: General: Right eye: No discharge. Left eye: No discharge. Conjunctiva/sclera: Conjunctivae normal. Pupils: Pupils are equal, round, and reactive to light. Neck: Vascular: No JVD. Cardiovascular: Rate and Rhythm: Normal rate and regular rhythm. Heart sounds: Normal heart sounds. No murmur heard. No friction rub. No gallop. Pulmonary: Effort: Pulmonary effort is normal. No respiratory distress. Breath sounds: Normal breath sounds. No wheezing. Abdominal: General: Bowel sounds are normal. Palpations: Abdomen is soft. Musculoskeletal: General: No deformity. Normal range of motion. Cervical back: Normal range of motion and neck supple. Skin: General: Skin is warm and dry. Neurological: Mental Status: She is alert and oriented to person, place, and time. Psychiatric: Judgment: Judgment normal. Past Medical History: Diagnosis Date Anxiety Asthma Essential hypertension, benign GERD (gastroesophageal reflux disease) Hypothyroidism Past Surgical History: Procedure Laterality Date EGD W/ BX N/A 03/21/2021 Laterality: N/A; Surgeon: Rajiv Kemp MD; Location: [facility] ENDOSCOPY DILATION AND CURETTAGE 2018 REPAIR TENDON Left left hand Allergies Allergen Reactions Morphine Hives Outpatient Medications Prior to Visit Medication Sig Dispense Refill buPROPion 300 MG tablet XL faMOTIdine 20 MG tablet Take 1 tablet by mouth 2 times daily. 60 tablet 3 metoprolol succinate 50 MG tablet XL Take 50 mg by mouth daily. omeprazole [address] capsule tiZANidine 4 MG tablet Take by mouth Every 8 hours. No facility-administered medications prior to visit. History reviewed. No pertinent family history. Social History Socioeconomic History Marital status: Spouse name: Not on file Number of children: Not on file Years of education: Not on file Highest education level: Not on file Occupational History Not on file Tobacco Use Smoking status: Former Smoker Smokeless tobacco: Never Used Vaping Use Vaping Use: Never used Substance and Sexual Activity Alcohol use: Yes Comment: social Drug use: Never Sexual activity: Not on file Other Topics Concern Not on file Social History Narrative Not on file Social Determinants of Health Financial Resource Strain: Not on file Food Insecurity: Not on file Transportation Needs: Not on file Physical Activity: Not on file Stress: Not on file Social Connections: Not on file Intimate Partner Violence: Not on file Housing Stability: Not on file SLEEP Harper Score - 8 CPAP/BIPAP/APAP Pressure - N/A Neck Circumference - 16.5 Most Recent Sleep Study - N/A Oxygen Use - no If so, how many liters and is it PRN, Nocturnal, or continuous? Patient is benefiting from PAP therapy-- DME - N/A Referred by- Dr. 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 Pt states she will sleep 20-30 mins while laying her kids down for a nap Do you experience tossing or turning at night? YES Restless legs - YES but not often If so, what medications are you currently taking or have previously been prescribed for RLS? No Are you currently or have you previously been treated for ADHD, Narcolepsy, or Fatigue? - NO If so, what medications are you currently taking or have previously been prescribed for ADHD, Narcolepsy, or Fatigue? N/A Waking with gasping/shortness of breath - NO Difficulty concentrate- - NO Waking with headache- YES Significant weight change- YES slowly gaining stated thyroid isn't working well Have you ever been on medication management for weight loss, spoke with anyone about weight loss surgery/procedures, or have you had a surgical procedure to help with weight loss? YES upcoming bariatric Pain 0-10- 0 If yes, Location- Upcoming surgeries?- YES bariatric Has witnessed apnea ( some body told patient that they stop breathing in their sleep) - NO Med Refills (that we prescribe) - no Pt I here for bariatric clearance. She states that she is having issues with insomnia, and will take her muscle relaxer for her back that helps her sleep plus a 20mg Melatonin every other day. Pt states she has bad back issues, and that has her up a lot. She states she is unable to lay flat and sleep at this time. She states that she tosses and turns a lot, but that her restless legs is more rareand is able to stretch to help them stop to go to sleep. ROS Reviewed. IMPRESSION AND PLAN: - Sleep apnea, unspecified - Hypersomnia - Fatigue - Snoring - Morning Headaches - Insomnia - Overweight * Patient was advised to lose weight. * Patient was advised to avoid alcohol and sedative medications. * Patient was advised to exercise precaution while operating a motorized vehicle. * Patient was advised to maintain a regular sleep schedule. * Will order for an overnight Polysomnography/Titration. Discussed with patient: the physiology of Sleep Apnea, medical conditions associated with sleep apnea (DM, HTN, CAD, Depression, Stroke, Headaches, CHF, Heart Dysrhythmias) and treatment options. Advised patient to avoid activities that could harm self or others when tired/sleep, including driving and/or operating heavy machinery. Depending on polysomnography results: - Order PAP titration based on insurance requirements, if already on therapy continue therapy, or if symptomatic with high AHI complete another titration. - Will start/continue PAP therapy after results of PAP titration - I will have prescription sent to a [email or web address] company of choice- who will becalling patient in approximately next 1-2 weeks. - Patient should be eligible for new supplies approximately every 3-6 months, depending on your insurance coverage, [email or web address] company will inform patient of coverage - If patient mask does not fit well, contact [email or web address] company before 30 days are up to get a new mask without an additional charge - Insurance requires regular usage and periodic office follow ups for PAP therapy to continue to cover supplies Insurance Requirements: - Your insurance requires a [id number]-wy-aovy follow up visit within 31-90 days period after starting PAP therapy. - Your insurance requires compliance with PAP therapy, which is at least 4 hours per night for 70% of the time. This must be done over at least 30 day period and must occur within the initial 31-90 day period after starting PAP therapy. - Your insurance also requires at least a yearly follow up to continue to pay for PAP therapy and supplies. A total of 45 minutes were spent at this encounter, and this includes obtaining and/or reviewing separately obtained history , performing exam, review of previous tests and results, independently interpreting results of tests and communicating results to the patient/family/caregiver, ordering medica tions/tests/procedures, counseling the patient and/family on plan of care, referring/communicating with other health health careers instructor, as well as documenting the clinical information in the EHR. This includes face to face time and preparing to see the patient (review of tests) I personally reviewed selected chart notes, results, interpreted tests, imaging today before seeingthe pt; reviewed and discussed w/ pt, questions answered. Portions of this chart were created using [employer] electronic dictation. Please excuse any typographical or grammatical errors contained herein as a result. KAREY Em documented in this encounterK[facility]06-20-2022 History of Present illness Narrative* Joshua Akers PsyD - 11/18/2021 3:30 PM EDT Bariatric Feedback Session Name: Aye Weir Date: 11/18/2021 Time in: 1525 Time out: 1556 Length of session: 31 minutes This psychological testing feedback session is correlated to DOS 09/20/2021, the date of the original evaluation and testing. Note: Met with Aye Weir to discuss psychological testing, the bariatric evaluation and recommendations. Pt has been cleared by nutrition. Pt looked up coping skills. Like meditative breathing and box breathing. Also likes yoga. Pt finds that she is under considerable chronic pain. This does cause some stress and impacts her happiness and the depressive symptoms seen in testing. Takes her medications as prescribed. Has had no additional episodes of binge eating. Plan: Aye Weir is cleared for bariatric surgery from a psychological perspective. Joshua Akers PsyD documented in this encounterK[facility]04-22-2022 Instructions* Patient Instructions* Joshua Akers PsyD - 09/20/2021 2:43 PM EDT 1. Emotional eating is a factor. 2. This patient should learn and practice adaptive coping and relaxation skills. This will be discussed at our feedback session. Examples include but are not limited to: Deep breathing exercises. Progressive muscle relaxation. Guided imagery. Meditation. documented in this encounterK[facility]04-22-2022 History of Present illness Narrative* Joshua Akers PsyD - 09/20/2021 1:00 PM EDT Pre-Bariatric Surgery Psychological Evaluation Name: Aye Weir : 1995 Age: 26 y.o. Sex: female [address]: [address] [place] [address] Date of Evaluation: 09/20/2021 Examiner: Joshua Akers PsyD Time of Diagnostic Evaluation: 2:25 PM Psychological Codes Used 15717 Psychological Diagnostic Interview 73205 Test Administration and Scoring (1st 30 minutes) 65347 Test Administration and Scoring (additional 30 minutes) 69414 Psychological Testing Services (1st 60 minutes) 69992 Psychological Testing Services (additional 60 minutes) Psychological Testing Table Code Date Time Spent Units Billed 08009 09/20/2021 NA 1 61881 09/20/2021 30 1 98631 09/20/2021 50 2 35844 09/26/2021 60 1 This pt will be seen for a feedback session at a later date. That service will be billed under the code 10951 which will relate back to this psychological evaluation and testing. Reason for Referral: The [facility] and Dr Kemp or Dr Gracia have referred Aye Weir for psychological evaluation to determine suitability for bariatric surgery. Use of this evaluation for other than the stated purpose is not recommended. Aye Weir is aware of the purpose of this evaluation and that the results will be sent to Dr Kemp or Dr Gracia and the bariatric team. Sources of Information: * Clinical Interview with Aye Weir * [place] Multiphasic Personality Inventory - 2 (MMPI-2) * Binge Eating Scale History of Present Illness (Weight and Eating Behavior): Current Height: Ht Readings from Last 3 Encounters: 03/21/21 1.676 m (5' 6) 12/28/20 1.676 m (5' 6) 12/28/20 1.676 m (5' 6) Last 3 Documented Weights: Wt Readings from Last 3 Encounters: 03/21/21 (!) 152 kg (335 lb) 03/18/21 (!) 152 kg (335 lb) 02/18/21 (!) 152 kg (335 lb) Most Recent BMI: BMI Readings from Last 3 Encounters: 03/21/21 54.07 kg/m 03/18/21 54.07 kg/m 02/18/21 54.07 kg/m Highest Adult Weight: 335 pounds Net Weight Gained or Lost in Last 6 Months: Lost 14 pounds Net Weight Gained or Lost in Last 5 Years: Lost 14 pounds First Attempt at Weight Loss: 15 years of age Percent of Adult Life Spent Dietin % Number of Times Patient Has Lost 20 Lbs. or More: 2 Most Significant Weight Loss: 40 pounds Supervised Weight Loss Program at This Time: Seeing a physician for weight loss medication: Yes, with our nutrition department. No Support for Surgery From Friends and Family: Yes, and mom, sister. Reasons for Pursuing Bariatric Surgery: healthier Bariatric Surgery Knowledge: Who is your bariatric surgeon? Dr. Kemp Which surgery are you discussing? rny Why does this surgery seem best for you? 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 Knowledge of Risks: Bowel perf, obstruction, dehydration, malnutrition, . How many times have you met with nutrition? 6 Identify Lifestyle Changes Needed for Success Post Surgery: Yes Eat protein first. Eat more protein. Yes Eat less sugars, bad carbohydrates and the bad fats. Yes Eat 5-6 times per day, small portions. Small plates and utensils. Yes Chew 20-30 times. Yes Drink more water. 64 oz. Yes Do more exercise. Yes Changes have to be forever. Food choices: Sweets in diet currently Excess consumption of starchy carbohydrates Excess consumption of high fatfoods No No No Eating Schedule: Breakfast Snacks Lunch Snacks Supper Snacks Yes 0 Yes 0 Yes 0 Binge Eating Symptoms (last 6 months): Large volume in discrete period of time Yes Loss of control over amount or choice Yes More rapid consumption than normal Yes Eating until uncomfortably full Yes Eating large amounts when not hungry No Embarrassed about size of meal - eats alone No Disgust, depression or guilt after overeating Yes Marked emotional distress associated with binge eating Yes Times per week 1 Most common binge food Iced coffee Most common time of day afternoon Binge Eating History Initial onset 11 years old Did dieting precede onset of binge eating? no Emotional Eating: Sad / lonely No Anxious / stressed Yes Angry Yes Happy / celebrating Yes Bored Yes Estimated times per week 3 Impact of eating / weight issues on relationships and work: Relationships no Work no Compensatory Behavior: Self Induced Vomitting Laxative Abuse Diuretic Abuse Compulsive Exercise Severe Calorie RestrictionComments Last 6 months never never never never never Past Hx never never never never never Importance of weight/body shape with regard to self worth: severe Family history of Binge Eating: mom and dad, sister in our program. Background Information: * Family of Origin Pt was born and raised in [place]. Relationship with parents: Moderate, mom is etoh, does not raise pt brother. Father doing better. Relationship with siblings: good * Marital Family/Significiant Relationships 5 years, great. Three kids. 5 female, 2 male, 1 male. * Education/Employment Graduated high school? 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 Likes this. Currently working? Yes [employer], 2 years. 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 * Current Stressors Weight and health. fulltime job and school and kids. * Coping Strategies Some emotional eating,. Needs some. Go for drives. Could stand to learn some more. * Leisure Fishing with , park with kids. * Consistent Exercise Walk daily at work. History of Present Illness (Psychological): * Have you ever been diagnosed with any mental health condition? Yes Anxiety first diagnosed 4 years ago, Dr Chiang, pcp * Have you ever been in counseling or psychotherapy? No * Have you ever been prescribed any psychotropic medications? Yes * Current psychotropic medications: wellbutrin 300 mg * Past psychotropic medications: buspar * Any known family history of Psychological diagnosis? Yes Mom on many meds, etoh, bipolar, ptsd, anx Father anxiety and dep * Have you ever been admitted to an Inpatient Psychiatric Unit? No Major Depression Current mood: good. Denies dep episodes. Depressed Mood No Anhedonia No Manic Symptoms: History of diagnosis or treatment of this disorder. No Anxiety Symptoms: Details Panic Disorder yes Generalized Anxiety Yes Obsessive Compulsive Disorder No Phobia No Panic Disorder: Much reduced with medication. Recurrent abrupt surges of intense fear or intense discomfort that peaks in minutes. Yes Palpitations, pounding heart, or accelerated heart rate No Sweating Yes Trembling or shaking No Sensations of shortness of breath or smothering Yes Feelings of choking No Chest pain or discomfort Yes Nausea or abdominal distress Yes Feeling dizzy, unsteady, light-headed, or faint No Chills or heat sensations Yes Numbness or tingling sensations No Derealization or depersonalization No Fear of losing control or going crazy Yes Fear of dying No At least 4 of the above symptoms Yes One month of persistent concern about additional attacks or a significant maladaptive change in behavior related to the attacks. Yes Generalized Anxiety Disorder: Excessive anxiety and worry, occurring more days than not, for at least 6 months, about multiple events or activities No It is difficult to control the worry No Obsessive Compulsive Disorder Symptoms: Details Cleaning None Counting None Checking None Arranging None Rituals None Time spent daily - obsessions None Severity of distress associated with obsessions N/A Degree of impairment caused by obsessions N/A Time spent daily - compulsions None Severity of distress associated with compulsions N/A Degree of impairment caused by compulsions N/A Posttraumatic Stress Disorder Symptoms: Intrusive thoughts, images, memories No Nightmares No Flashbacks No Attention Deficit Hyperactivity Disorder Symptoms: History of diagnosis or treatment of this disorder: No Psychosis Symptoms: Hallucinations No Delusions No Thought disorder No Catatonia No Substance Use: Caffeine 1 can pop per day or one coffee, cutting down Tobacco 0 Alcohol 0 Marijuana 0 Cocaine 0 Heroin / Opioids 0 Other Drugs 0 Have you ever been in drug or alcohol treatment. No Any history of abuse of prescriptions medications. No Clinical Observations and Mental Status: Appearance: appropriate Mood: normal Affect: appropriate Motor Activity: normal Speech: normal and soft Attention: normal Orientation: person, place, time and situation Eye Contact: good Thought Process: normal Cognitive Impairment: none Suicidal Ideation: denied by patient Homicidal Ideation:denied by patient Hallucination: none Delusion: none Memory: intact Insight: fair Judgment: fair Impulse Control: poor Interview Behavior: cooperative Test Results: * [place] Multiphasic Personality Inventory - 2 (MMPI-2) Validity Scales T-Scores VRIN 70 MILAN 65f F 55 FB 66 FP 65 FBS 75 L 52 K 48 S 40 Clinical Scales T-Scores Hs 69 D 77 Hy 63 Pd 68 Mf 47 Pa 63 Pt 66 Sc 55 Ma 47 Si 66 Valid profile. Pt showing symptoms of depression. She reports excessive bodily complaints. She has stormy relations with family. * Binge Eating Scale Raw Score 19 The patient's responses to this scale are consistent with self report and indicative of binge eating disorder. The patient endorsed the following: Is self conscious of her weight, feels intense shame and disgust for self and thus avoids social contacts. Eats a forbidden food on a diet then feels she blew it. Overeats each month. When snacking heavily will skip regular meals. Spends too much time thinking about how much she ate or trying not to eat more ICD 10 Diagnosis: ICD-10-CM 1. Binge-eating disorder, mild F50.81 2. Panic disorder without agoraphobia F41.0 Conclusions and Recommendations: Aye Weir was referred by Self, Self and the [facility] for psychological evaluation to determine their suitability for bariatric surgery. 1. Emotional eating has been a factor. Is working on this and reducing her anxiety with medications and by eating healthy as taught by nutrition. 2. This patient should learn and practice adaptive coping and relaxation skills. This will be discussed at our feedback session. Examples include but are not limited to: Deep breathing exercises. Progressive muscle relaxation. Guided imagery. Meditation. 3. Testing suggests more depression symptoms than reported in clinical interview. I will review this patient's progress on the above at feedback. Prognosis for clearance at feedback is fair. Joshua Akers PsyD documented in this [facility]04-05-2022 History of Present illness Narrative* Patient is here today for 6-8 year follow up * Patient reports that she has noticed a positive change on the higher dose of the Wellbutrin. * She is continuing to follow with bariatric surgery, will have final evaluation for that this month. * her back is still continuing to bother her, she cannot lay down to sleep, has to sit in a chair to sleep. Feels like her legs are rubbery if she sleeps laying down. She does have numbness down both legs at times. [facility] Work Phone: [phone] 664-799809-23-2021 History of Present illness Narrative* Patient is here today for virtual nutrition follow up * Pt is going to [facility] for bariatric surgery planning. * Pt is has had 5 to her nutrition appts. * Pt is down 9 lbs in the last few months. * They did Not have a shelving supervisor to meet with her this month and recommended that she see me so shedid not have start all over. Has a follow up appt next month with their new shelving supervisor. * So far she has had the endoscopies and will have a psych eval, as well as getting a sleep. * Patient is currently eating <10 gm of sugar per meal and 70-90 gm of protein a day. * Breakfast she will have a string cheese and a sugar free yogurt. * Eating 6 small meals a day, nuts, * Lunch salad with protein * Dinner: protein with vegetables. * Pt is drinking 100 oz of water a day. * She does not feel like the buspar is always effective for her anxiety. * Would like to try something els, often makes her sleepy and with going ot school w,ork and taking care of her children that is not always feasible. [facility] Work Phone: [phone] 388-652308-25-2021 History of Present illness Narrative* Karen Light, RD - 01/23/2021 3:00 PM EDT OUTPATIENT BARIATRIC NUTRITION EDUCATION: LESSON 1 (zoom due to the restrictions of the COVID-19 pandemic) Referring Provider: Rajiv Kemp MD Nutrition Assessment: Anthropometrics: Ht Readings from Last 1 Encounters: 12/28/20 1.676 m (5' 6) Wt Readings from Last 3 Encounters: 12/28/20 (!) 152 kg (335 lb) 12/28/20 (!) 152 kg (335 lb) Patient weight not recorded There is no height or weight on file to calculate BMI. Ms. Aye Weir is a 25 y.o. female participated in a zoom check in today in preparation forweight loss surgery Diet Recall: (Obtained from zoom) Meal Time Food/Drink Breakfast NA NA Snack 10 am Erick Zander's turkey and cheese stick Lunch 1 pm Low carb wrap with 4 slices turkey breast, 2 mini slices provolone, spinach, 1.5 TBSP chipotle dressing Snack 3-4 strawberries Dinner 3-4 oz sliced ham, 1/3 cup scalloped potatoes, green beans Snack NA NA Current exercise: Pt is exercising 4 days/week for 30-45 minutes. Water intake: Pt is drinking 75-150 oz of water/day. Nutrition Goals: 1. Eat breakfast: not MET 2. Eat 5-6 small meals/day: not MET 3. Consume adequate protein: MET 4. Limit sugar to no more than 10 gm per meal/snack: MET 5. Eating off smaller plates: MET 6. Chew your food 20 times per bite: MET 7. Meals should last 30 minutes: MET 8. Eat in this order: protein first, vegetables and fruit second, whole grains last: MET 9. Put your fork down between bites: not MET 10. Begin regular physical activity: MET Today pt participated in a zoom check in to review a class for bariatric patients. Pt was educated on the following topics via online recorded class and taking a quiz after. Pt then reviewed quiz with RD and RD collected pt weight, diet recall, fluid intake, and exercise/physical activity over a zoom call. Discussed and encouraged the following: Eat 3 meals per day, including breakfast Limit snacks/nibbles to 3 per day Eliminate simple sugars Drink at least 64 ounces of no-calorie fluids daily Begin regular physical activity Eliminate carbonate beverages Eliminate caffeine Eliminate alcohol Don t drink with meals Eating protein first, then vegetables and fruit and whole grains last Put your fork down between bites Stop eating when no longer hungry Eating complex carbohydrates. Using small plates, bowls and cups. Using baby spoons an forks to encourage small bites. Nutrition Diagnosis: NB-1.1 Food and nutrition-related knowledge deficit related to carbohydrate and fluid needs after bariatric sx as evidenced by pt new to bariatric program. Nutrition Intervention: Nutrition Goals: 1. Eat 5-6x/day. 2. Limit sugar to no more than 10 gm per meal/snack. 3. Drink at least 64 ounces of caffeine free fluid/day. 4. Eliminate: carbonation, caffeine, alcohol. 5. Chew your food 20-30x per bite. 6. Meals should last 20-30 minutes. Monitoring and Evaluation: 1.Pt will complete all 4 nutrition education classes in person or online. 2. Progress is tracked via goal questionnaire at each nutrition class/ collected verbally if virtual/phonecall 3. Pt is weighed monthly. From home if virtual/phone call 4. Pre-op appointment scheduled with a Registered Dietitian. Time spent with pt: 15 minutes Karen Light RDN, LD Registered Dietitian Career Coordinator, Licensed Dietitian 01/23/21 documented in this [facility]07-30-2021 History and physical note* Rajiv Kemp MD - 12/28/2020 9:00 AM EDT BARIATRIC SURGERY NEW PATIENT CONSULTATION HISTORY AND PHYSICAL Date: 12/28/2020 Time: 9:16 AM Name: Aye Weir This is a 25 y.o. female with morbid obesity (Body mass index is 54.07 kg/m .) who presents to clinic for consideration of bariatric surgery. she has attempted and failed multiple diet and exercise regimens for weight loss. PMH: HTN and tachycardia (on metoprolol), PCOS, GERD (intermittent and sometimes severe, she has taken zantac in the past but now just treats prn), chronic hip pain since . PSH: hysteroscopy/D&C/uterine polypectomy, colonoscopy, wisdom teeth, L hand tendo repair. No abdominal surgeries. Denies smoking/regular EtOH/drug use. STOPBANG 4 (+ daytime sleepiness, HTN, obesity, neck circum). No personal hx of VTE. Dad had a DVT/PE after hospitalization for severe illness. The risks of sleeve gastrectomy, Chuckie-en-Y gastric bypass, and duodenal switch surgery including bleeding, leak, wound infection, dehydration, ulcers, internal hernia, DVT/PE, prolonged nausea/vomiting, incomplete resolution of associated medical conditions, reflux, weight regain, vitamin/mineral deficiencies, and have been explained to the patient and Aye Weir has expressed understanding and acceptance of them. The increased risk of substance and alcohol abuse following bariatric surgery was discussed with the patient, along with the negative consequences of substance/alcohol use after surgery including addiction, worsening of mental health disorders, and injury to the stomach. The risk of smoking and vaping (tobacco or any other substance) after bariatric surgery was explained to the patient. This includes risk of anastamotic ulcers, gastritis, bleeding, perforation, stricture, and PO intolerance. The patient expressed understanding and acceptance of these risks. The patient was advised not to become within 12-18 months following bariatric surgery. Shewas educated on the increased risks to mother and fetus associated with within 2 years ofbariatric surgery. Her has a vasectomy. The benefits of the above surgeries including weight loss, improvement/resolution of associated medical and mental health conditions, improved mobility, and decreased mortality have been explained the the patient and Aye Weir has expressed understanding and acceptance of them. PAST MEDICAL HISTORY: Past Medical History: Diagnosis Date Essential hypertension, benign PAST SURGICAL HISTORY: Past Surgical History: Procedure Laterality Date DILATION AND CURETTAGE 2018 REPAIR TENDON Left left hand FAMILY HISTORY: No family history on file. SOCIAL HISTORY: Social History Tobacco Use Smoking status: Former Smoker Smokeless tobacco: Never Used Vaping Use Vaping Use: Never used Substance Use Topics Alcohol use: Yes Comment: social Drug use: Never MEDICATIONS: Prior to Admission Medications: Current Outpatient Medications Medication Sig Last Dose Start Date End Date Authorizing Provider metoprolol succinate 50 MG tablet XL 50 mg, Oral, DAILY 03/20/20 Historical Provider ALLERGIES: No Known Allergies REVIEW OF SYSTEMS: GENERAL: Negative for malaise, significant weight loss and fever HEAD: Negative for headache, swelling. NECK: Negative for lumps, goiter, pain and significant neck swelling RESPIRATORY: Negative for cough, wheezing or shortness of breath. CARDIOVASCULAR: Negative for chest pain, leg swelling or palpitations. GI: Negative for abdominal discomfort, blood in stools or black stools or change in bowel habits : No history of dysuria, frequency or incontinence MUSCULOSKELETAL: Negative for joint pain or swelling, back pain or muscle pain. SKIN: Negative for lesions, rash, and itching. PSYCH: Negative for sleep disturbance, mood disorder and recent psychosocial stressors. ENDOCRINE: Negative for cold or heat intolerance, polyuria, polydipsia and goiter. PHYSICAL EXAM: Visit Vitals BP 148/72 (BP Location: Left arm, BP Position: Sitting) Pulse 86 Temp 97.3 F (36.3 C) (Temporal) Ht 1.676 m (5' 6) Wt (!) 152 kg (335 lb) SpO2 98% BMI 54.07 kg/m General appearance: obese, NAD Neuro: AOx3 Head: EOMI; no swelling or lesions of scalp or face ENT: no lumps or lymphadenopathy, thyroid normal to palpation; oropharynx clear, no swelling or erythema Skin: warm, no erythema or rashes Lungs: clear to percussion and auscultation Heart: regular rhythm and S1, S2 normal Abdomen: soft, non-tender, no masses, no organomegaly Extremities: Normal exam of the extremities. No swelling or pain. Psych: no hurried speech, no flight of ideas, normal affect IMPRESSION: Aye Weir is a 25 y.o. female with the following diagnosis and co-morbidities: Body mass index is 54.07 kg/m . HTN Tachycardia GERD PCOS Chronic hip pain Diagnosis noted as above, no additional diagnosis at this time. This patient does meet the criteria for a surgical weight loss procedure according to NIH guidelines. PLAN: The plan of treatment for Aye Weir is to continue with the consultations and tests ordered today in hopes of qualifying for pre-operative clearance for bariatric surgery. This includes: Consult Nutrition for education and 6 mo SWL Consult Psychology Consult cardiology - Dr Reji Polanco in [place] Labs/CXR/EKG ordered EGD PCP for medical optimization Consult sleep medicine - concern for MANI - [place] Patient is interested in: undecided 45 minutes were spent with patient including history, physical exam, and education. Rajiv Kemp MD Bariatric and Minimally Invasive General Surgery [facility] complaint Narrative - Reported* An interactive audio and video telecommunication system which permits real time communications between the patient (at the originating site) and provider (at the distant site) was utilized to providethis telehealth service. * 26 y/o presents virtually to talk about nutrition * She states she needs to stay in compliance with [facility] * She states they did not have a shelving supervisor available to talk with her this months [facility] Work Phone: Evaluation note* Diagnosis Morbid obesity with body mass index of 50 or higher- Primary Essential hypertension Unspecified essential hypertension Tachycardia Tachycardia, unspecified PCOS (polycystic ovarian syndrome) Polycystic ovaries Gastroesophageal reflux disease, unspecified whether esophagitis present Chronic pain of both hips Screening for viral disease Special screening examination for unspecified viral disease Essential hypertension Unspecified essential hypertension Tachycardia Tachycardia, unspecified Morbid obesity with body mass index of 50 or higher PCOS (polycystic ovarian syndrome) Polycystic ovaries Gastroesophageal reflux disease, unspecified whether esophagitis present Chronic pain of both hips GERD (gastroesophageal reflux disease)- Primary Esophageal reflux [facility]* Diagnosis Essential hypertension Unspecified essential hypertension Tachycardia Tachycardia, unspecified Morbid obesity with body mass index of 50 or higher PCOS (polycystic ovarian syndrome) Polycystic ovaries Gastroesophageal reflux disease, unspecified whether esophagitis present Chronic pain of both hips GERD (gastroesophageal reflux disease)- Primary Esophageal reflux [facility] Diagnosis Essential hypertension Unspecified essential hypertension Tachycardia Tachycardia, unspecified Morbid obesity with body mass index of 50 or higher PCOS (polycystic ovarian syndrome) Polycystic ovaries Gastroesophageal reflux disease, unspecified whether esophagitis present Chronic pain of both hips [facility]* Diagnosis GERD (gastroesophageal reflux disease)- Primary Esophageal reflux Morbid obesity with body mass index of 50 or higher- Primary GERD (gastroesophageal reflux disease) Esophageal reflux [facility]* Diagnosis Binge-eating disorder, mild- Primary Panic disorder without agoraphobia [facility]* Diagnosis Binge-eating disorder, in full remission, mild- Primary [facility]* Diagnosis Sleep apnea, unspecified type- Primary Snoring Other dyspnea and respiratory abnormality Overweight Insomnia, unspecified type Morning headache Headache Fatigue, unspecified type Hypersomnia, unspecified [facility]* Diagnosis Ganglion cyst- Primary Unspecified ganglion [facility] Sleep apnea, unspecified type- Primary Snoring Other dyspnea and respiratory abnormality Overweight Insomnia, unspecified type Morning headache Headache Fatigue, unspecified type Hypersomnia, unspecified [facility]* Diagnosis Ganglion cyst- Primary Unspecified ganglion Ganglion cyst- Primary Unspecified ganglion [facility]* Diagnosis Sleep apnea, unspecified type- Primary documented in this encounter [facility]* Diagnosis Ganglion cyst- Primary Unspecified ganglion Ganglion cyst- Primary Unspecified ganglion Ganglion cyst Unspecified ganglion documented in this encounter [facility] note* Diagnosis Hair loss- Primary Unspecified alopecia Other fatigue Screening for diabetes mellitus Gastroesophageal reflux disease without esophagitis Esophageal reflux Morbid obesity (CMS/HCC) Morbid obesity PCOS (polycystic ovarian syndrome) Polycystic ovaries Anxiety Anxiety state, unspecified documented in this encounter [facility] Work Phone: Evaluation note* Diagnosis Obstructive sleep apnea- Primary Obstructive sleep apnea (adult) (pediatric) Sleep related hypoxia Idiopathic sleep related nonobstructive alveolar hypoventilation Overweight Encounter for review of form with patient documented in this encounter [facility]* Diagnosis Morbid obesity with body mass index of 50 or higher documented in this encounter [facility]* Diagnosis Attention deficit hyperactivity disorder (ADHD), combined type- Primary documented in this encounter [facility] Work Phone: Evaluation note* Diagnosis Morbid obesity with body mass index of 50 or higher- Primary Essential hypertension Unspecified essential hypertension Morbid obesity with body mass index of 50 or higher Essential hypertension Unspecified essential hypertension documented in this encounter [facility]* Diagnosis Morbid obesity with body mass index of 50 or higher Essential hypertension Unspecified essential hypertension Preop testing Preoperative examination, unspecified S/P gastric sleeve procedure [facility] Diagnosis S/P gastric sleeve procedure- Primary documented in this encounter [facility]* Diagnosis S/P laparoscopic sleeve gastrectomy- Primary documented in this encounter [facility] note* Diagnosis Attention deficit hyperactivity disorder (ADHD), combined type- Primary documented in this encounter [facility] Work Phone: Evaluation note* Diagnosis Attention deficit hyperactivity disorder (ADHD), combined type- Primary documented in this encounter [facility] Work Phone: Evaluation note* Diagnosis Encounter for gynecological examination without abnormal finding Encounter for screening for cervical cancer documented in this encounter [facility] Work Phone: History of Present illness Narrative* 25-year-old female with 7-year duration of rectal bleeding. Bleeding is now persistent chronic and occurs with every bowel movement. Blood is mixed in with the bowel movement and often opposite of bowel movement. She does have some mucus. Associated symptoms of urgency with tenesmus. Family historynegative for colorectal cancer or inflammatory bowel disease. Denies any rectal pain or discomfort.Does have some rectal seepage now after bowel movements. Denies any weight loss or history of anemia. * Last hemoglobin was drawn on June 07 and did show hemoglobin 10.8 with normal MCV. This was around the time of her delivery. She is on no multivitamin. [facility] Work Phone: History of Present illness NarrativePatient presents for low back pain. Patient reports approximately 2-year history of progressively worsening pain in the lumbar paravertebral muscle groups that radiates caudally. Patient denies trauma, direct blow, fall, or other known precipitating event prior to onset. Patient states that the increased back pain started with and complicated vaginal delivery. Patient was evaluated for this previously and orthopedic referral was recommended. Patient did not follow-up. Pain exacerbatedby movement and lying flat with no alleviating factors. Patient cannot take NSAIDs due to history of bleeding ulcers. No other complaints.[facility] Work Phone: History of Present illness Narrative* C/C mid to LBP and R>L posterior LE sx since having her child in 2019. x2 sets of films show significant mid to low thor spine DDD. Physical findings show enhanced T/L transition, weak abdominals,RLE myotome weakness, and excessive BW. C/C sx were reprod the most with stdg back bend. 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 * Clinical Presentation: Stable and/or uncomplicated characteristics. * Level of Complexity: low * Problem List: activity limitations, ADLs/IADLs/self care skills, decreased functional level, decreased knowledge of HEP, decreased knowledge of precautions, gait/locomotion, pain, range of motion/joint mobility and strength. [facility] Work Phone: History of Present illness Narrative* Patient identified by name & . Patient wore a mask during treatment d/t Covid-19 precautions. Treatment consisted of * . [facility] Work Phone: History of Present illness Narrative* Patient is here today for wrist lesion. * Patient reports that she has a cyst on her anterior wrist, it has gotten a lot bigger and it seems to be interfering with her movement of her wrist. She has been trying to do Yoga and this is interfering with her activity. [facility] Work Phone: History of Present illness Narrative* 26-year-old female who has been previously diagnosed with inappropriate sinus tachycardia here for follow-up: * Problem #1 inappropriate sinus tachycardia * -On metoprolol 50 mg daily * Problem #2 preoperative evaluation * -Patient currently can walk on level ground without any chest discomfort or shortness of breath. Denies any orthopnea/PND/lower extremity edema. Denies any dizziness or lightheadedness * Can climb 2 flights of stairs without any issues. No prior history of CVA, kidney disease, diabetesrequiring insulin, heart failure, ischemic heart disease. * Previous cardiac work-up: * Echocardiogram 04/02/2020: Normal biventricular function LS-[id number] [employer] Work Phone: History of Present illness Narrative* Aye Weir is a 27-year-old female with a h/o anemia, inappropriate sinus tachycardia, anxiety, and obesity presenting for pre-operative surgical clearance. * Surgery-Dr. Jimena Gracia at [facility]-Gastric Bypass * Preoperative evaluation: * -Patient currently can walk on level ground without any chest discomfort or shortness of breath. Denies any orthopnea/PND/lower extremity edema. Denies any dizziness or lightheadedness * Can climb 2 flights of stairs without any issues. No prior history of CVA, kidney disease, diabetesrequiring insulin, heart failure, ischemic heart disease. * Cardiac hx includes: * Inappropriate sinus tachycardia * -On metoprolol 50 mg daily; no complaints OF-Rspifeptdd-Cqdwvfp [address] Work Phone: History of Present illness NarrativePresents for annual exam. She voices no complaints and is doing well. Denies any bowel or bladder problems. Denies any breast problems. Her had a vasectomy. [facility] Work Phone: History of Present illness Narrative* Sierra Santos DO - 11/26/2023 10:00 AM EDT Subjective Patient ID: Aye Weir is a 28 y.o. female who presents for No chief complaint on file.. HPI Patient is here today for virtual follow up Patient and physician are at two separate locations. Patient was verbally consented for the encounter. Pt reports that initially she felt like the Strattera was helping but now it is not. Will increase to max 80mg dose. No side effects Review of Systems Psychiatric/Behavioral: +adhd Objective There were no vitals taken for this visit. Physical Exam No physical exam was completed due to virtual visit, Assessment/Plan Problem List Items Addressed This Visit Attention deficit hyperactivity disorder (ADHD), combined type - Primary Relevant Medications atomoxetine (Strattera) 80 mg capsule ADHD - on wellbutrin already with no change - no significant change with Strattera 50mg po daily , will increase to 80mg if not change will move on to stimulants Final diagnoses: [F90.2] Attention deficit hyperactivity disorder (ADHD), combined type [facility] Discharge instructions Additional Instructions work release to be off work. Return date is September 05, [address] Luz. Pelvic rest.[facility] Work Phone: Instructions* Name Dates Details Instructions not documented [id number] Work Phone: Progress note Author Adelaida Robertson [facility] Note Date/Time October 26, 2024 10:16 am [facility] [address], [address] [place] [address] OFFICE VISIT Date of Service: 10/26/24 MR#: [id number] Acct: [id number] Name: AYE WEIR Rep # : [id number] : 1995 Provider: Dr. 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 Is patient in pain?: No Allergies morphine Allergy (Intermediate, Verified 10/26/24 09:53) Hives Medications ?Medication ?Instructions ?Recorded ?Confirmed ?Type bupropion HCl 300 mg 24 hr tablet, 300 mg PO QAM 06/0910/26/24 History extended release (Wellbutrin XL) metoprolol succinate 50 mg 50 mg PO QDAY 06/09/2409/30 History tablet,extended release 24 hr multivit-min no.71-iron fum 28 1 cap PO DAILY 06/09/24 10/26/24 History mg-folate no.1 1 mg-dha 300 mg capsule (PNV-Dudley) blood sugar diagnostic (Accutrend #50 ea 10/26/2409/30 Rx Glucose test strips) blood-glucose meter (Accu-Chek #1 ea 10/26/24 10/26/24 Rx Guide Glucose Meter) lancets 23 gauge (Acti-Montrell #100 ea 10/26/24 10/26/24 Rx Lancets) Last Menstrual Period: 04/01/24 Zika: Zika virus screening: Negative : No PFSH PFSH Medical History Hx of abnormal cervical Pap smear Asthma Surgical History H/O dilation and curettage H/O gastric sleeve History of surgical removal of ganglion cyst S/P tendon repair Family History Grandmother Cancer Maternal- Pancreatic ca Grandmother Breast cancer, Onset Age: 40 Paternal Mother Cancer, Onset Age: 30 cervical Social History adopted: No household members: significant other and children number of children: 3 current occupational status: employed 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[employer] pets and animals: No history of recent travel: No sexually active: Yes Smoking Status: Never smoker alcohol intake: never substance use type: does not use well-balanced diet: daily or most days caffeine: No eating out: 1-3 times/week during the past year weight has: decreased > 10 lbs what type of physical activity do you participate in: none lupis/latter day: None seatbelt use: sometimes do you feel safe at home: Yes additional social history: Boyfriend- Gretchen- Works at the [employer] History 4 Elective abortions Hx Para 3 Spontaneous abortions Hx # Term Pregnancies Ectopic pregnancies Hx # Pregnancies Multiple births # of living children 3 Past Pregnancies Del. Date Name GA/Weeks Outcome Route Bth Weight Infant Gen Labor Lgth Anesthesia Del Locatn Provider FOB 08/21/16 [place] 39 live - full term 9# Female epidural [facility] Dr. Aaron Almanza 05/05/19 [place] 39 live - full term 8#1oz Male [facility] Dr. Castillo Almanza 06/06/20 [place] 38 live - full term 9#6oz Male epidural [facility] Dr. Castillo Almanza Delivery Date: 05/05/19 Last Updated by: Christy Diaz shoulder dystocia HPI 30 WK OB Details: AYE WEIR is a 29 year old who presents for routine OB visit. OB Visit DOMONIQUE Calculator Estimated Delivery Date Method Current WG Current Estimate 01/06/25 LMP (Certain) 29w 5d Expected Delivery Route/Plan Labor Preferences- CB/BF classes: [] labor support person: [] labor intervention preferences: [] pain management options preferred: [] cut cord/dad catch: [] : [] PP control planned: [] discussed possible routes of delivery and associated risks: [] special requests: [] Specific Issue/Plans Covid status: [] Flu vaccine: [] Tdap vaccine: [] Rhogam: [] LARC form signed: [] Problem list reviewed and updated with the most current plan of care details and appropriate orders placed. Relevant counseling for the gestational age provided. Continue routine care and follow up unless otherwise noted in visit notes/problem list details Initial Weight: 203 lb Date -?-?-?-?-?-?-?-?-?-?-?-?- EGA Weight BP Urine Prot -?-?-?-?-?-?-?-?-?-?-?-?- Glucose FHR FuHt Pres Dilation -?-?-?-?-?-?-?-?-?-?-?-?- Effaced St Visit Note 06/09/24 -?-?-?-?-?-?-?-?-?-?-?-?- 9w 6d 203 lb (+0 oz) 111/73 -?-?-?-?-?-?-?-?-?-?-?-?- 175 -?-?-?-?-?-?-?-?-?-?-?-?- KW- CRL cons wit h dates. declines NIPT. on Metoprolol for elevated HR-sees cardiology PRN. 07/11/24 -?-?-?-?-?-?-?-?-?-?-?--?- 14w 3d 203 lb (+0 oz) 97/63 Negative -?-?-?-?-?-?-?-?-?-?-?-?- Negative 160 -?-?-?-?-?-?-?-?-?-?-?-?- JV- pt still nee ds new ob labs. states got them at Dr. Walker's office before she came to us. Has h/o shoulder dystocia so will need a hga1c. she will sign another ror form and if do not get it by next visit will need to do all labs again. no other complaints. declines nipt. anatomy scan ordered. 08/04/24 -?-?-?-?-?-?-?-?-?-?-?-?- 17w 6d 208 lb (+5 lb) 95/50 Negative -?-?-?-?-?-?-?-?-?-?-?-?- Negative 150 -?-?-?-?-?-?-?-?-?-?-?-?- SM- no vb lof go od fm no reuglar ctx SM- no vb no reuglar ctx 08/31/24 -?-?-?-?-?-?-?-?-?-?-?-?- 21w 5d 214 lb 4 oz (+11 lb 4 oz) 102/64 Negative -?-?-?-?-?-?-?-?-?-?-?-?- Negative 160 -?-?-?-?-?-?-?-?-?-?-?-?- -Seen WP 08/29 for vag bleeding. Still with some brown discharge. No cramping. Good FM. Cervix was friable on 08/29:cultures still pending. Low lying placenta-US sched at 28 wk. Pelvic rest. Reviewed bleeding precautions 09/28/24 -?-?-?-?-?-?-?-?-?-?-?-?- 25w 5d 223 lb (+20 lb) 103/69 -?-?-?-?-?-?-?-?-?-?-?-?- 150 -?-?-?-?-?-?-?-?-?-?-?-?- Sm- no vb lof go od fm no regular ctx 10/26/24 -?-?-?-?-?-?-?-?-?-?-?-?- 29w 5d 225 lb 4 oz (+22 lb 4 oz) 109/75 Negative -?-?-?-?-?-?-?-?-?-?-?-?- Negative 153 31 -?-?-?-?-?-?-?-?-?-?-?-?- JV- still spotti ng after intercourse. no loss of fluid or dec fm. recommemd refrain from sex, keep MFM scan at 32 weeks. SHe is unable to hold down iron. b12 and iron studies ordered for h/o bariatric surgery. checking fasting glucose levels for next couple of weeks as unable to do glucola. JV- still spotting after int ercourse. no loss of fluid or dec fm. recommemd refrain from sex, keep MFM scan at 32 weeks. SHe is unable to hold down iron. b12 and iron studies ordered for h/o bariatric surgery. checking fasting glucose levels for next couple of weeks as unable to do glucola. tdap today ACOG First Trimester First Trimester: Desire for , Alcohol, Tobacco Cessation, Illicit/Recreational Drug/Substance Use, Intimate Partner Violence, Barriers to care, Anticipated Course of Care, Use of Any medications, Sexual activity, Exercise, Dental Care, Sauna/Hot tub use, Seat Belt use, Childbirth classes/Hospital facilities, Travel, Indications for Ultrasound and Screening for Aneuploidy; Discussed Unstable Housing, Discussed Communication Barriers, Discussed Environmental/Work Hazards, Discussed Toxoplasmosis Precations and Discussed Second Trimester Second Trimester: Signs and Symptoms of Labor, Selecting a care provider, Reproductive Life Planning & Contreception, Care Planning, Depression/Anxiety and Intimate Partner Violence; Discussed Tobacco Cessation Third Trimester Third Trimester: Pain Management Plans, Labor support person(s), Immediate Larc, Signs and Symptoms of Preeclampsia, Feeding No , [place] Education and Family Medical Leave or Disability Forms ROS Const Denies fever(s) GI Reports as per HPI and Denies abdominal pain Reports as per HPI, Denies abnormal vaginal bleeding, Denies dysuria and Denies vaginal discharge Exam Const General: healthy appearing, comfortable and no acute distress GI Inspection: normal to inspection Palpation: soft and nontender Results POC Urinalysis 2 Dip (Clinic) Office Urine Glucose Negative Last Edit by Mariann Kapadia on 10/26/24 10: 07 Office Urine Protein Negative Last Edit by Mariann Kapadia on 10/26/24 10: 07 Coding Level of Care Code Off vis,est,level 3 Diagnoses Exposure to parvovirus Z20.828 History of bariatric surgery Z98.84 Anemia during in second trimester O99.012 Trimester: second trimester Low lying placenta, antepartum O44.40 Tachycardia R00.0 Obesity affecting in second trimester, unspecified obesity type O99.212 Obesity type affecting : unspecified obesity Trimester: second trimester Supervision of high risk in second trimester O09.92 Trimester: second trimester 29 weeks gestation of Z3A.29 Weeks of gestation: 29 weeks H/O shoulder dystocia in prior , currently O09.299 Assessment and Plan Assessment and Plan (1) Exposure to parvovirus: Status: Acute (2) History of bariatric surgery: Status: Acute Comment: sleeve 03/23. Growth scan every 4 weeks. (3) Anemia in preg-unspec: Status: Acute Qualifiers: Trimester: second trimester Qualified Code(s): O99.012 - Anemia complicating , second trimester Comment: add fe (4) Low lying placenta, antepartum: Status: Acute Comment: pelvic rest, US @ 28 wks. resolved. (5) Tachycardia: Status: Acute Comment: sees cardiology. on Metoprolol (6) Obesity affecting : Status: Acute Qualifiers: Obesity type affecting : unspecified obesity Trimester: second trimester Qualified Code(s): O99.212 - Obesity complicating , second trimester Comment: HgbA1c (7) Supervision of high-risk : Status: Acute Qualifiers: Trimester: second trimester Qualified Code(s): O09.92 - Supervision of high risk , unspecified, second trimester Comment: PRR, , DOMONIQUE 01/06/25, PC Rolando Vasques Rowan BF Jyothi (8) : Status: Acute Qualifiers: Weeks of gestation: 29 weeks Qualified Code(s): Z3A.29 - 29 weeks gestation of Comment: declined NIPT & Carrier testing, nl anatomy (9) H/O shoulder dystocia in prior , currently : Status: Acute Comment: 2nd 8 lbs, had other bigger babies. that was an IOL. mild Orders: Orders POC Urinalysis 2 Dip (Clinic) Today Iron+Iron Binding Capacity Today O99.019 - Anemia complicating , unspecified trimester, Z98.84 - Bariatric surgery status Vitamin B12 Today O99.019 - Anemia complicating , unspecified trimester, Z98.84 - Bariatric surgery status Ferritin Today O99.019 - Anemia complicating , unspecified trimester, Z98.84 - Bariatric surgery status Tdap Immunization Today Z23 - Encounter for immunization Medications: New lancets (Acti-Montrell Lancets) As directed 100 ea 0RF blood sugar diagnostic (Accutrend Glucose test strips) As directed 50 ea 0RF blood-glucose meter (Accu-Chek Guide Glucose Meter) As directed check sugar levels (fasting) in the morning 1 ea 0RF 10/26/24 1016 <Electronically signed by Adelaida Zuniga DO> Date _ Adelaida Burnett DO Cosigner Signature: Date (if applicable) CC: ~ [facility] Work Phone: Progress note Author Jocelyn Malcolm [facility] Note Date/Time November 10, 2024 10:2 3am [facility] [address], [address] [place] [address] OFFICE VISIT Date of Service: 11/10/24 MR#: [id number] Acct: [id number] Name: AYE WEIR Rep # : [id number] : 1995 Provider: RICKY Malcolm Age/Sex: 29/F Location: [place] Status: Signed Intake Vital Signs 06/09/24 11:31 10/26/24 09:55 11/10/24 09:55 Height 5 ft 6 in 5 ft 6 in 5 ft 6 in Weight: 225 lb 4 oz BMI 36.3 BP 105/68 Intake Visit Reasons: 32 WK OB 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 Is patient in pain?: No Allergies morphine Allergy (Intermediate, Verified 11/10/24 09:56) Hives Medications ?Medication ?Instructions ?Recorded ?Confirmed ?Type bupropion HCl 300 mg 24 hr tablet, 300 mg PO QAM 06/0911/10/24 History extended release (Wellbutrin XL) metoprolol succinate 50 mg 50 mg PO QDAY 06/09/2410/30 History tablet,extended release 24 hr multivit-min no.71-iron fum 28 1 cap PO DAILY 06/09/24 11/10/24 History mg-folate no.1 1 mg-dha 300 mg capsule (PNV-Dudley) blood sugar diagnostic (Accutrend #50 ea 10/26/2410/30 Rx Glucose test strips) blood-glucose meter (Accu-Chek #1 ea 10/26/24 11/10/24 Rx Guide Glucose Meter) lancets 23 gauge (Acti-Montrell #100 ea 10/26/24 11/10/24 Rx Lancets) Last Menstrual Period: 04/01/24 Zika: Zika virus screening: Negative : No PFSH PFSH Medical History Hx of abnormal cervical Pap smear Asthma Surgical History H/O dilation and curettage H/O gastric sleeve History of surgical removal of ganglion cyst S/P tendon repair Family History Grandmother Cancer Maternal- Pancreatic ca Grandmother Breast cancer, Onset Age: 40 Paternal Mother Cancer, Onset Age: 30 cervical Social History adopted: No household members: significant other and children number of children: 3 current occupational status: employed 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[employer] pets and animals: No history of recent travel: No sexually active: Yes Smoking Status: Never smoker alcohol intake: never substance use type: does not use well-balanced diet: daily or most days caffeine: No eating out: 1-3 times/week during the past year weight has: decreased > 10 lbs what type of physical activity do you participate in: none lupis/latter day: None seatbelt use: sometimes do you feel safe at home: Yes additional social history: Boyfriend- Gretchen- Works at the [employer] History 4 Elective abortions Hx Para 3 Spontaneous abortions Hx # Term Pregnancies Ectopic pregnancies Hx # Pregnancies Multiple births # of living children 3 Past Pregnancies Del. Date Name GA/Weeks Outcome Route Bth Weight Infant Gen Labor Lgth Anesthesia Del Locatn Provider FOB 08/21/16 [place] 39 live - full term 9# Female epidural [facility] Dr. Aaron Almanza 05/05/19 Rol[place] 39 live - full term 8#1oz Male none [facility] Dr. Castillo Almanza 06/06/20 [place] 38 live - full term 9#6oz Male epidural [facility] Dr. Castillo Almanza Delivery Date: 05/05/19 Last Updated by: Christy Diaz shoulder dystocia HPI 32 WK OB Details: AYE WEIR is a 29 year old who presents for routine OB visit. OB Visit DOMONIQUE Calculator Estimated Delivery Date Method Current WG Current Estimate 01/06/25 LMP (Certain) 31w 6d Expected Delivery Route/Plan Labor Preferences- CB/BF classes: [] labor support person: [] labor intervention preferences: [] pain management options preferred: [] cut cord/dad catch: [] : [] PP control planned: [] discussed possible routes of delivery and associated risks: [] special requests: [] Specific Issue/Plans Covid status: [] Flu vaccine: [] Tdap vaccine: [] Rhogam: [] LARC form signed: [] Problem list reviewed and updated with the most current plan of care details and appropriate orders placed. Relevant counseling for the gestational age provided. Continue routine care and follow up unless otherwise noted in visit notes/problem list details Initial Weight: 203 lb Date -?-?-?-?-?-?-?-?-?-?-?-?- EGA Weight BP Urine Prot -?-?-?-?-?-?-?-?-?-?-?-?- Glucose FHR FuHt Pres Dilation -?-?-?-?-?-?-?-?-?-?-?-?- Effaced St Visit Note 06/09/24 -?-?-?-?-?-?-?-?-?-?-?-?- 9w 6d 203 lb (+0 oz) 111/73 -?-?-?-?-?-?-?-?-?-?-?-?- 175 -?-?-?-?-?-?-?-?-?-?-?-?- KW- CRL cons wit h dates. declines NIPT. on Metoprolol for elevated HR-sees cardiology PRN. 07/11/24 -?-?-?-?-?-?-?-?-?-?-?-?- 14w 3d 203 lb (+0 oz) 97/63 Negative -?-?-?-?-?-?-?-?-?-?-?-?- Negative 160 -?-?-?-?-?-?-?-?-?-?-?-?- JV- pt still nee ds new ob labs. states got them at Dr. Walker's office before she came to us. Has h/o shoulder dystocia so will need a hga1c. she will sign another ror form and if do not get it by next visit will need to do all labs again. no other complaints. declines nipt. anatomy scan ordered. 08/04/24 -?-?-?-?-?-?-?-?-?-?-?-?- 17w 6d 208 lb (+5 lb) 95/50 Negative -?-?-?-?-?-?-?-?-?-?-?-?- Negative 150 -?-?-?-?-?-?-?-?-?-?-?-?- SM- no vb lof go od fm no reuglar ctx SM- no vb no reuglar ctx 08/31/24 -?-?-?-?-?-?-?-?-?-?-?-?- 21w 5d 214 lb 4 oz (+11 lb 4 oz) 102/64 Negative -?-?-?-?-?-?-?-?-?-?-?-?- Negative 160 -?-?-?-?-?-?-?-?-?-?-?-?- -Seen WP 08/29 for vag bleeding. Still with some brown discharge. No cramping. Good FM. Cervix was friable on 08/29:cultures still pending. Low lying placenta-US sched at 28 wk. Pelvic rest. Reviewed bleeding precautions 09/28/24 -?-?-?-?-?-?-?-?-?-?-?-?- 25w 5d 223 lb (+20 lb) 103/69 -?-?-?-?-?-?-?-?-?-?-?-?- 150 -?-?-?--?-?-?-?-?-?-?-?-?- Sm- no vb lof go od fm no regular ctx 10/26/24 -?-?-?-?-?-?-?-?-?-?-?-?- 29w 5d 225 lb 4 oz (+22 lb 4 oz) 109/75 Negative -?-?-?-?-?-?-?-?-?-?-?-?- Negative 153 31 -?-?-?-?-?-?-?-?-?-?-?-?- JV- still spotti ng after intercourse. no loss of fluid or dec fm. recommemd re frain from sex, keep MFM scan at 32 weeks. SHe is unable to hold down iron. b12 and iron studies ordered for h/o bariatric surgery. checking fasting glucose levels for next couple of weeks as unable to do glucola. JV- still spotting after int ercourse. no loss of fluid or dec fm. recommemd refrain from sex, keep MFM scan at 32 weeks. SHe is unable to hold down iron. b12 and iron studies ordered for h/o bariatric surgery. checking fasting glucose levels for next couple of weeks as unable to do glucola. tdap today 11/10/24 -?-?-?-?-?-?-?-?-?-?-?-?- 31w 6d 225 lb 4 oz (+22 lb 4 oz) 105/68 Trace -?-?-?-?-?-?-?-?-?-?-?-?- Negative 150 32 -?-?-?-?-?-?-?-?-?-?-?-?- kw- no vb/lof/ct x. good fm. has scan next week. LARC today ACOG First Trimester First Trimester: Desire for , Alcohol, Tobacco Cessation, Illicit/Recreational Drug/Substance Use, Intimate Partner Violence, Barriers to care, Anticipated Course of Care, Use of Any medications, Sexual activity, Exercise, Dental Care, Sauna/Hot tub use, Seat Belt use, Childbirth classes/Hospital facilities, Travel, Indications for Ultrasound and Screening for Aneuploidy; Discussed Unstable Housing, Discussed Communication Barriers, Discussed Environmental/Work Hazards, Discussed Toxoplasmosis Precations and Discussed Second Trimester Second Trimester: Signs and Symptoms of Labor, Selecting a care provider, Reproductive Life Planning & Contreception, Care Planning, Depression/Anxiety and Intimate Partner Violence; Discussed Tobacco Cessation Third Trimester Third Trimester: Pain Management Plans, Labor support person(s), Immediate Larc, Signs and Symptoms of Preeclampsia, Feeding No , [place] Education and Family Medical Leave or Disability Forms ROS Const Reports system reviewed and no additional complaints, except as documented Eyes Reports system reviewed and no additional complaints, except as documented ENT Reports system reviewed and no additional complaints, except as documented Card Reports system reviewed and no additional complaints, except as documented Resp Reports system reviewed and no additional complaints, except as documented GI Reports system reviewed and no additional complaints, except as documented, Denies nausea and Denies vomiting Reports system reviewed and no additional complaints, except as documented Musc Reports system reviewed and no additional complaints, except as documented Skin/Breast Reports system reviewed and no additional complaints, except as documented Neuro Yes system reviewed and no additional complaints, except as documented Psych Reports system reviewed and no additional complaints, except as documented Endo Reports system reviewed and no additional complaints, except as documented Sean/Lymph Reports system reviewed and no additional complaints, except as documented Aller/Immun Reports system reviewed and no additional complaints, except as documented Exam Const General: cooperative, healthy appearing and no acute distress Orientation: alert, awake and oriented x3 Neck Neck: normal visual inspection and full ROM Resp Effort & Inspection: normal respiratory effort, able to speak in complete sentences and symmetric chest movement GI Inspection: normal to inspection Palpation: soft and other Other: gravid Skin General: no rashes or lesions noted Neuro General: patient alert, patient awake and patient oriented x3 Cognition: normal cognition Speech: speech normal Gait: normal gait Motor: muscle tone normal throughout Extrem General: normal to inspection and full ROM Psych Appearance: grossly normal Mental Status: mental status grossly normal Mood: congruent mood Affect: normal affect Speech and Movement: speech and movement normal Attitude: cooperative Thought Process: normal Thought Content: normal Judgment: judgment good Results POC Urinalysis 2 Dip (Clinic) Office Urine Glucose Negative Last Edit by Luisa Miller on 11/10/24 10:02 Office Urine Protein Trace Last Edit by Luisa Miller on 11/10/24 10:02 Coding Level of Care Code Off vis,est,level 3 Diagnoses Anemia affecting O99.019 Exposure to parvovirus Z20.828 History of bariatric surgery Z98.84 Anemia during in second trimester O99.012 Trimester: second trimester Tachycardia R00.0 Low lying placenta, antepartum O44.40 Obesity affecting in second trimester, unspecified obesity type O99.212 Obesity type affecting : unspecified obesity Trimester: second trimester Supervision of high risk in second trimester O09.92 Trimester: second trimester 31 weeks gestation of Z3A.31 Weeks of gestation: 31 weeks H/O shoulder dystocia in prior , currently O09.299 Assessment and Plan Assessment and Plan (1) Anemia affecting : Status: Acute Comment: iv venofer (2) Exposure to parvovirus: Status: Acute (3) History of bariatric surgery: Status: Acute Comment: sleeve 03/23. Growth scan every 4 weeks. (4) Anemia in preg-unspec: Status: Acute Qualifiers: Trimester: second trimester Qualified Code(s): O99.012 - Anemia complicating , second trimester Comment: add fe (5) Tachycardia: Status: Acute Comment: sees cardiology. on Metoprolol (6) Low lying placenta, antepartum: Status: Acute Comment: pelvic rest, US @ 28 wks. resolved. (7) Obesity affecting : Status: Acute Qualifiers: Obesity type affecting : unspecified obesity Trimester: second trimester Qualified Code(s): O99.212 - Obesity complicating , second trimester Comment: HgbA1c (8) Supervision of high-risk : Status: Acute Qualifiers: Trimester: second trimester Qualified Code(s): O09.92 - Supervision of high risk , unspecified, second trimester Comment: PRR, , DOMONIQUE 01/06/25, oRlando Henry Rowan BF Jyothi (9) : Status: Acute Qualifiers: Weeks of gestation: 31 weeks Qualified Code(s): Z3A.31 - 31 weeks gestation of Comment: declined NIPT & Carrier testing, nl anatomy (10) H/O shoulder dystocia in prior , currently : Status: Acute Comment: 2nd 8 lbs, had other bigger babies. that was an IOL. mild Orders: Orders POC Urinalysis 2 Dip (Clinic) Today Plan Details Additional Comments: ACOG trimester education reviewed and updated. see problem list details for updated plan management information and see below for orders placed at this visit. GA appropriate handout given. 11/10/24 1023 <Electronically signed by Jocelyn valero CNM> Date _ Jocelyn Malcolm CNM Cosigner Signature: Date (if applicable) CC: ~ [facility] Work Phone: Progress note Author Isabel Luz [facility] Note Date/Time November 24, 2024 10:0 5am [facility] [address], [address] [place] [address] OFFICE VISIT Date of Service: 11/24/24 MR#: [id number] Acct: [id number] Name: AYE WEIR Rep # : [id number] : 1995 Provider: Dr. 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 Is patient in pain?: No Allergies morphine Allergy (Intermediate, Verified 11/24/24 09:40) Hives Medications ?Medication ?Instructions ?Recorded ?Confirmed ?Type bupropion HCl 300 mg 24 hr tablet, 300 mg PO QAM 06/0911/24/24 History extended release (Wellbutrin XL) metoprolol succinate 50 mg 50 mg PO QDAY 01/09/25 06/2 6/25 History tablet,extended release 24 hr multivit-min no.71-iron fum 28 1 cap PO DAILY 06/09/24 11/24/24 History mg-folate no.1 1 mg-dha 300 mg capsule (PNV-Dudley) blood sugar diagnostic (Accutrend #50 ea 10/26/24 06/11/23 Rx Glucose test strips) blood-glucose meter (Accu-Chek #1 ea 10/26/24 11/24/24 Rx Guide Glucose Meter) lancets 23 gauge (Acti-Monterll #100 ea 10/26/24 11/24/24 Rx Lancets) Last Menstrual Period: 04/01/24 Zika: Zika virus screening: Negative : No PFSH PFSH Medical History Hx of abnormal cervical Pap smear Asthma Surgical History H/O dilation and curettage H/O gastric sleeve History of surgical removal of ganglion cyst S/P tendon repair Family History Grandmother Cancer Maternal- Pancreatic ca Grandmother Breast cancer, Onset Age: 40 Paternal Mother Cancer, Onset Age: 30 cervical Social History adopted: No household members: significant other and children number of children: 3 current occupational status: employed 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[employer] pets and animals: No history of recent travel: No sexually active: Yes Smoking Status: Never smoker alcohol intake: never substance use type: does not use well-balanced diet: daily or most days caffeine: No eating out: 1-3 times/week during the past year weight has: decreased > 10 lbs what type of physical activity do you participate in: none lupis/latter day: None seatbelt use: sometimes do you feel safe at home: Yes additional social history: Boyfriend- Gretchen- Works at the [employer] History 4 Elective abortions Hx Para 3 Spontaneous abortions Hx # Term Pregnancies Ectopic pregnancies Hx # Pregnancies Multiple births # of living children 3 Past Pregnancies Del. Date Name GA/Weeks Outcome Route Bth Weight Gen Labor Lgth Anes thes ia Del Locatn Provider FOB 08/21/16 Stephradha 39 live - full term 9# Female epidural [facility] Dr. Aaron Almanza 05/05/19 [place] 39 live - full term 8#1oz Male none [facility] Dr. Castillo Almanza 06/06/20 Melissa 38 live - full term 9#6oz Male epidural [facility] Dr. Castillo Almanza Delivery Date: 05/05/19 Last Updated by: Christy Diaz shoulder dystocia HPI 34 WK OB Details: AYE WEIR is a 29 year old who presents for routine OB visit. OB Visit DOMONIQUE Calculator Estimated Delivery Date Method Current WG Current Estimate 01/06/25 LMP (Certain) 33w 6d Expected Delivery Route/Plan Labor Preferences- CB/BF classes: [] labor support person: [] labor intervention preferences: [] pain management options preferred: [] cut cord/dad catch: [] : [] PP control planned: [] discussed possible routes of delivery and associated risks: [] special requests: [] Specific Issue/Plans Covid status: [] Flu vaccine: [] Tdap vaccine: given Rhogam: [] LARC form signed: [] Problem list reviewed and updated with the most current plan of care details and appropriate orders placed. Relevant counseling for the gestational age provided. Continue routine care and follow up unless otherwise noted in visit notes/problem list details Initial Weight: 203 lb Date -?-?-?-?-?-?-?-?-?-?-?-?- EGA Weight BP Urine Prot -?-?-?-?-?-?-?-?-?-?-?-?- Glucose FHR FuHt Pres Dilation -?-?-?-?-?-?-?-?-?-?-?-?- Effaced St Visit Note 06/09/24 -?-?-?-?-?-?-?-?-?-?-?-?- 9w 6d 203 lb (+0 oz) 111/73 -?-?-?-?-?-?-?-?-?-?-?-?- 175 -?-?-?-?-?-?--?-?-?-?-?-?- KW- CRL cons wit h dates. declines NIPT. on Metoprolol for elevated HR-sees cardiology PRN. 07/11/24 -?-?-?-?-?-?-?-?-?-?-?-?- 14w 3d 203 lb (+0 oz) 97/63 Negative -?-?-?-?-?-?-?-?-?-?-?-?- Negative 160 -?-?-?-?-?-?-?-?-?-?-?-?- JV- pt still nee ds new ob labs. states got them at Dr. Walker's office before she came to us. Has h/o shoulder dystocia so will need a hga1c. she will sign another ror form and if do not get it by next visit will need to do all labs again. no other complaints. declines nipt. anatomy scan ordered. 08/04/24 -?-?-?-?-?-?-?-?-?-?-?-?- 17w 6d 208 lb (+5 lb) 95/50 Negative -?-?-?-?-?-?-?-?--?-?-?-?- Negative 150 -?-?-?-?-?-?-?-?-?-?-?-?- SM- no vb lof go od fm no reuglar ctx SM- no vb no reuglar ctx 08/31/24 -?-?-?-?-?-?-?-?-?-?-?-?- 21w 5d 214 lb 4 oz (+11 lb 4 oz) 102/64 Negative -?-?-?-?-?-?-?-?-?-?-?-?- Negative 160 -?-?-?-?-?-?-?-?-?-?-?-?- -Seen WP 08/29 for vag bleeding. Still with some brown discharge. No cramping. Good FM. Cervix was friable on 08/29:cultures still pending. Low lying placenta-US sched at 28 wk. Pelvic rest. Reviewed bleeding precautions 09/28/24 -?-?-?-?-?-?-?-?-?-?-?-?- 25w 5d 223 lb (+20 lb) 103/69 -?-?-?-?-?-?-?-?-?-?-?-?- 150 -?-?-?-?-?-?-?-?-?-?-?-?- Sm- no vb lof go od fm no regular ctx 10/26/24 -?-?-?-?-?-?-?-?-?-?-?-?- 29w 5d 225 lb 4 oz (+22 lb 4 oz) 109/75 Negative -?-?-?-?-?-?-?-?-?-?-?-?- Negative 153 31 -?-?-?-?-?-?-?-?-?-?-?-?- JV- still spotti ng after intercourse. no loss of fluid or dec fm. recommemd refrain from sex, keep MFM scan at 32 weeks. SHe is unable to hold down iron. b12 and iron studies ordered for h/o bariatric surgery. checking fasting glucose levels for next couple of weeks as unable to do glucola. JV- still spotting after int ercourse. no loss of fluid or dec fm. recommemd refrain from sex, keep MFM scan at 32 weeks. SHe is unable to hold down iron. b12 and iron studies ordered for h/o bariatric surgery. checking fasting glucose levels for next couple of weeks as unable to do glucola. tdap today 11/10/24 -?-?-?-?-?-?-?-?-?-?-?-?- 31w 6d 225 lb 4 oz (+22 lb 4 oz) 105/68 Trace -?-?-?-?-?-?-?-?-?-?-?-?- Negative 150 32 -?-?-?-?-?-?-?-?-?-?-?-?- kw- no vb/lof/ct x. good fm. has scan next week. LARC today 11/24/24 -?-?-?-?-?-?-?-?-?-?-?-?- 33w 6d 230 lb 4 oz (+27 lb 4 oz) 105/66 Negative -?-?-?-?-?--?-?-?-?-?-?-?- Negative 140 34 -?-?-?-?-?-?-?-?-?-?-?-?- SM- no vb lof go od fm another venofer infusion today ACOG First Trimester First Trimester: Desire for , Alcohol, Tobacco Cessation, Illicit/Recreational Drug/Substance Use, Intimate Partner Violence, Barriers to care, Anticipated Course of Care, Use of Any medications, Sexual activity, Exercise, Dental Care, Sauna/Hot tub use, Seat Belt use, Childbirth classes/Hospital facilities, Travel, Indications for Ultrasound and Screening for Aneuploidy; Discussed Unstable Housing, Discussed Communication Barriers, Discussed Environmental/Work Hazards, Discussed Toxoplasmosis Precations and Discussed Second Trimester Second Trimester: Signs and Symptoms of Labor, Selecting a care provider, Reproductive Life Planning & Contreception, Care Planning, Depression/Anxiety and Intimate Partner Violence; Discussed Tobacco Cessation Third Trimester Third Trimester: Pain Management Plans, Labor support person(s), Immediate Larc, Signs and Symptoms of Preeclampsia, Feeding No , Education and Family Medical Leave or Disability Forms ROS Const Denies fever(s) GI Reports as per HPI and Denies abdominal pain Reports as per HPI, Denies abnormal vaginal bleeding, Denies dysuria and Denies vaginal discharge Exam Const General: healthy appearing, comfortable and no acute distress GI Inspection: normal to inspection Palpation: soft and nontender Results POC Urinalysis 2 Dip (Clinic) Office Urine Glucose Negative Last Edit by Mariann Kapadia on 11/24/24 09: 46 Office Urine Protein Negative Last Edit by Mariann Kapadia on 11/24/24 09: 46 Coding Level of Care Code OB Routine Diagnoses Anemia affecting O99.019 Exposure to parvovirus Z20.828 History of bariatric surgery Z98.84 Anemia during in second trimester O99.012 Trimester: second trimester Low lying placenta, antepartum O44.40 Tachycardia R00.0 Obesity affecting in second trimester, unspecified obesity type O99.212 Obesity type affecting : unspecified obesity Trimester: second trimester Supervision of high risk in second trimester O09.92 Trimester: second trimester 33 weeks gestation of Z3A.33 Weeks of gestation: 33 weeks H/O shoulder dystocia in prior , currently O09.299 Assessment and Plan Assessment and Plan (1) Anemia affecting : Status: Acute Comment: iv venofer (2) Exposure to parvovirus: Status: Acute (3) History of bariatric surgery: Status: Acute Comment: sleeve 03/23. Growth scan every 4 weeks. (4) Anemia in preg-unspec: Status: Acute Qualifiers: Trimester: second trimester Qualified Code(s): O99.012 - Anemia complicating , second trimester Comment: add fe (5) Low lying placenta, antepartum: Status: Acute Comment: pelvic rest, US @ 28 wks. resolved. (6) Tachycardia: Status: Acute Comment: sees cardiology. on Metoprolol (7) Obesity affecting : Status: Acute Qualifiers: Obesity type affecting : unspecified obesity Trimester: second trimester Qualified Code(s): O99.212 - Obesity complicating , second trimester Comment: HgbA1c (8) Supervision of high-risk : Status: Acute Qualifiers: Trimester: second trimester Qualified Code(s): O09.92 - Supervision of high risk , unspecified, second trimester Comment: PRR, , DOMONIQUE 01/06/25, PC Rolando Vasques Rowan BF Jyothi (9) : Status: Acute Qualifiers: Weeks of gestation: 33 weeks Qualified Code(s): Z3A.33 - 33 weeks gestation of Comment: declined NIPT & Carrier testing, nl anatomy (10) H/O shoulder dystocia in prior , currently : Status: Acute Comment: 2nd 8 lbs, had other bigger babies. that was an IOL. mild Orders: Orders POC Urinalysis 2 Dip (Clinic) Today 11/24/24 1006 <Electronically signed by Isabel aguilar MD> Date _ Isabel Luz MD Cosigner Signature: Date (if applicable) CC: ~ [facility] Work Phone: Reason for referral (narrative)* Consultation (Routine) - Authorized Specialty Diagnoses / Procedures Referred By Contac t Referred To Contact Primary Care Procedures Follow Up In Primary Care - Established Sierra Santos DO [address] [facility] [place] [address] Referral ID Status Reason Start Date Expiration Date V isits Requested Visits Authorized [id number] Authorized 01/22/2023 07/21/2023 1 1 [facility] Work Phone: Reason for referral (narrative)* (Routine) Specialty Diagnoses / Procedures Referred By Contac t Referred To Contact [address] [address] Referral ID Status Reason Start Date Expiration Date Visits Re quested Visits Authorized * (Routine) Specialty Diagnoses / Procedures Referred By Contac t Referred To Contact [address] [address] Referral ID Status Reason Start Date Expiration Date Visits Re quested Visits Authorized * (Routine) Specialty Diagnoses / Procedures Referred By Contac t Referred To Contact [address] [address] Referral ID Status Reason Start Date Expiration Date Visits Re quested Visits [facility] Consultation (Routine) - Authorized Specialty Diagnoses / Procedures Referred By Contac t Referred To Contact Primary Care Procedures Follow Up In Primary Care - Established Sierra Santos DO [address] [facility] [address] Referral ID Status Reason Start Date Expiration Date V isits Requested Visits Authorized [id number] Authorized 03/09/2024 03/09/2025 1 1 [facility] Work Phone: Relhzk for referral (narrative)* Consultation (Routine) - Authorized Specialty Diagnoses / Procedures Referred By Nory lima Referred To Contact Primary Care Procedures Follow Up In Primary Care - Established Sierra Santos DO [address] [facility] [address] [place] [id number] Referral ID Status Reason Start Date Expiration Date V isits Requested Visits Authorized [id number] Authorized 11/26/2023 11/25/2024 1 1 * Medications - Closed Specialty Diagnoses / Procedures Referred By Nory lima Referred To Contact Diagnoses Attention deficit hyperactivity disorder (ADHD), combined type Sierra Santos DO [address] [facility] [address] [place] [id number] Referral ID Status Reason Start Date Expiration Date Visits Re quested Visits Authorized [id number] Closed 1 1 [facility] Work Phone: Rewvsw for referral (narrative)No reason for referral information [facility] Work Phone: Reason for visit Narrative* Initial Evaluation . thor/LBP. * Referred by: [facility] Work Phone: Summary Purpose Family History No Family History Records Found Grandparent Name Dates Details Family history of malignant neoplasm of breast(V16.3, Z80.3) Status:Active Family history of pancreatic cancer(V16.0, Z80.0) Status:Active aunt Name Dates Details Family history of malignant neoplasm of breast(V16.3, Z80.3) Status:Active Mother Name Dates Details No pertinent family history( V49.89, Z78.9) Status:Active Father Name Dates Details Family history of diabetes m ellitus(V18.0, Z83.3) Status:Active Family history of hypertensi on(V17.49, Z82.49) Status:Active Grandparent Name Dates Details Family history of malignant neoplasm of breast(V16.3, Z80.3) Status:Active Family history of pancreatic cancer(V16.0, Z80.0) Status:Active aunt Name Dates Details Family history of malignant neoplasm of breast(V16.3, Z80.3) Status:Active Mother Name Dates Details No pertinent family history( V49.89, Z78.9) Status:Active Father Name Dates Details Family history of diabetes m ellitus(V18.0, Z83.3) Status:Active Family history of hypertensi on(V17.49, Z82.49) Status:Active Grandparent Name Dates Details Family history of malignant neoplasm of breast(V16.3, Z80.3) Status:Active Family history of pancreatic cancer(V16.0, Z80.0) Status:Active aunt Name Dates Details Family history of malignant neoplasm of breast(V16.3, Z80.3) Status:Active Mother Name Dates Details No pertinent family history( V49.89, Z78.9) Status:Active Father Name Dates Details Family history of diabetes m ellitus(V18.0, Z83.3) Status:Active Family history of hypertensi on(V17.49, Z82.49) Status:Active Grandparent Name Dates Details Family history of malignant neoplasm of breast(V16.3, Z80.3) Status:Active Family history of pancreatic cancer(V16.0, Z80.0) Status:Active aunt Name Dates Details Family history of malignant neoplasm of breast(V16.3, Z80.3) Status:Active Mother Name Dates Details No pertinent family history( V49.89, Z78.9) Status:Active Father Name Dates Details Family history of diabetes m ellitus(V18.0, Z83.3) Status:Active Family history of hypertensi on(V17.49, Z82.49) Status:Active Grandparent Name Dates Details Family history of malignant neoplasm of breast(V16.3, Z80.3) Status:Active Family history of pancreatic cancer(V16.0, Z80.0) Status:Active aunt Name Dates Details Family history of malignant neoplasm of breast(V16.3, Z80.3) Status:Active Mother Name Dates Details No pertinent family history( V49.89, Z78.9) Status:Active Father Name Dates Details Family history of diabetes m ellitus(V18.0, Z83.3) Status:Active Family history of hypertensi on(V17.49, Z82.49) Status:Active Unknown Family Member Name Dates Details Family history of diabetes m ellitus: Father(V18.0, Z83.3) Status:Active Family history of hypertensi on: Father(V17.49, Z82.49) Status:Active Family history of malignant neoplasm of breast: Grandparent, Aunt(V16.3, Z80.3) Status:Active Family history of pancreatic cancer: Grandparent(V16.0, Z80.0) Status:Active No pertinent family history: Mother(V49.89, Z78.9) Comments:mom had breast canc er in hre 20s, multiple maternal aunts; Status:Active Unknown Family Member Name Dates Details Family history of diabetes m ellitus: Father(V18.0, Z83.3) Status:Active Family history of hypertensi on: Father(V17.49, Z82.49) Status:Active Family history of malignant neoplasm of breast: Grandparent, Aunt(V16.3, Z80.3) Status:Active Family history of pancreatic cancer: Grandparent(V16.0, Z80.0) Status:Active No pertinent family history: Mother(V49.89, Z78.9) Comments:mom had breast canc er in hre 20s, multiple maternal aunts; Status:Active Unknown Family Member Name Dates Details Family history of diabetes m ellitus: Father(V18.0, Z83.3) Status:Active Family history of hypertensi on: Father(V17.49, Z82.49) Status:Active Family history of malignant neoplasm of breast: Grandparent, Aunt(V16.3, Z80.3) Status:Active Family history of pancreatic cancer: Grandparent(V16.0, Z80.0) Status:Active No pertinent family history: Mother(V49.89, Z78.9) Comments:mom had breast canc er in hre 20s, multiple maternal aunts; Status:Active Unknown Family Member Name Dates Details Family history of diabetes m ellitus: Father(V18.0, Z83.3) Status:Active Family history of hypertensi on: Father(V17.49, Z82.49) Status:Active Family history of malignant neoplasm of breast: Grandparent, Aunt(V16.3, Z80.3) Status:Active Family history of pancreatic cancer: Grandparent(V16.0, Z80.0) Status:Active No pertinent family history: Mother(V49.89, Z78.9) Comments:mom had breast canc er in hre 20s, multiple maternal aunts; Status:Active Unknown Family Member Name Dates Details Family history of diabetes m ellitus: Father(V18.0, Z83.3) Status:Active Family history of hypertensi on: Father(V17.49, Z82.49) Status:Active Family history of malignant neoplasm of breast: Grandparent, Aunt(V16.3, Z80.3) Status:Active Family history of pancreatic cancer: Grandparent(V16.0, Z80.0) Status:Active No pertinent family history: Mother(V49.89, Z78.9) Comments:mom had breast canc er in hre 20s, multiple maternal aunts; Status:Active Unknown Family Member Name Dates Details Family history of diabetes m ellitus: Father(V18.0, Z83.3) Status:Active Family history of hypertensi on: Father(V17.49, Z82.49) Status:Active Family history of malignant neoplasm of breast: Grandparent, Aunt(V16.3, Z80.3) Status:Active Family history of pancreatic cancer: Grandparent(V16.0, Z80.0) Status:Active No pertinent family history: Mother(V49.89, Z78.9) Comments:mom had breast canc er in hre 20s, multiple maternal aunts; Status:Active Unknown Family Member Name Dates Details Family history of diabetes m ellitus: Father(V18.0, Z83.3) Status:Active Family history of hypertensi on: Father(V17.49, Z82.49) Status:Active Family history of malignant neoplasm of breast: Grandparent, Aunt(V16.3, Z80.3) Status:Active Family history of pancreatic cancer: Grandparent(V16.0, Z80.0) Status:Active No pertinent family history: Mother(V49.89, Z78.9) Comments:mom had breast canc er in hre 20s, multiple maternal aunts; Status:Active Unknown Family Member Name Dates Details Family history of diabetes m ellitus: Father(V18.0, Z83.3) Status:Active Family history of hypertensi on: Father(V17.49, Z82.49) Status:Active Family history of malignant neoplasm of breast: Grandparent, Aunt(V16.3, Z80.3) Status:Active Family history of pancreatic cancer: Grandparent(V16.0, Z80.0) Status:Active No pertinent family history: Mother(V49.89, Z78.9) Comments:mom had breast canc er in hre 20s, multiple maternal aunts; Status:Active Unknown Family Member Name Dates Details Family history of diabetes m ellitus: Father(V18.0, Z83.3) Status:Active Family history of hypertensi on: Father(V17.49, Z82.49) Status:Active Family history of malignant neoplasm of breast: Grandparent, Aunt(V16.3, Z80.3) Status:Active Family history of pancreatic cancer: Grandparent(V16.0, Z80.0) Status:Active No pertinent family history: Mother(V49.89, Z78.9) Comments:mom had breast canc er in hre 20s, multiple maternal aunts; Status:Active Unknown Family Member Name Dates Details Family history of malignant neoplasm of breast: Grandparent, Aunt(V16.3, Z80.3) Status:Active Family history of diabetes m ellitus: Father(V18.0, Z83.3) Status:Active Family history of hypertensi on: Father(V17.49, Z82.49) Status:Active Family history of pancreatic cancer: Grandparent(V16.0, Z80.0) Status:Active No pertinent family history: Mother(V49.89, Z78.9) Comments:mom had breast canc er in hre 20s, multiple maternal aunts; Status:Active Unknown Family Member Name Dates Details Family history of malignant neoplasm of breast: Grandparent, Aunt(V16.3, Z80.3) Status:Active Family history of diabetes m ellitus: Father(V18.0, Z83.3) Status:Active Family history of hypertensi on: Father(V17.49, Z82.49) Status:Active Family history of pancreatic cancer: Grandparent(V16.0, Z80.0) Status:Active No pertinent family history: Mother(V49.89, Z78.9) Comments:mom had breast canc er in hre 20s, multiple maternal aunts; Status:Active Unknown Family Member Name Dates Details Family history of diabetes m ellitus: Father(V18.0, Z83.3) Status:Active Family history of hypertensi on: Father(V17.49, Z82.49) Status:Active Family history of malignant neoplasm of breast: Grandparent, Aunt(V16.3, Z80.3) Status:Active Family history of pancreatic cancer: Grandparent(V16.0, Z80.0) Status:Active No pertinent family history: Mother(V49.89, Z78.9) Comments:mom had breast canc er in hre 20s, multiple maternal aunts; Status:Active Unknown Family Member Name Dates Details Family history of diabetes m ellitus: Father(V18.0, Z83.3) Status:Active Family history of hypertensi on: Father(V17.49, Z82.49) Status:Active Family history of malignant neoplasm of breast: Grandparent, Aunt(V16.3, Z80.3) Status:Active Family history of pancreatic cancer: Grandparent(V16.0, Z80.0) Status:Active No pertinent family history: Mother(V49.89, Z78.9) Comments:mom had breast canc er in hre 20s, multiple maternal aunts; Status:Active Unknown Family Member Name Dates Details Family history of diabetes m ellitus: Father(V18.0, Z83.3) Status:Active Family history of hypertensi on: Father(V17.49, Z82.49) Status:Active Family history of malignant neoplasm of breast: Grandparent, Aunt(V16.3, Z80.3) Status:Active Family history of pancreatic cancer: Grandparent(V16.0, Z80.0) Status:Active No pertinent family history: Mother(V49.89, Z78.9) Comments:mom had breast canc er in hre 20s, multiple maternal aunts; Status:Active Unknown Family Member Name Dates Details Family history of diabetes m ellitus: Father(V18.0, Z83.3) Status:Active Family history of hypertensi on: Father(V17.49, Z82.49) Status:Active Family history of malignant neoplasm of breast: Grandparent, Aunt(V16.3, Z80.3) Status:Active Family history of pancreatic cancer: Grandparent(V16.0, Z80.0) Status:Active No pertinent family history: Mother(V49.89, Z78.9) Comments:mom had breast canc er in hre 20s, multiple maternal aunts; Status:Active Unknown Family Member Name Dates Details Family history of diabetes m ellitus: Father(V18.0, Z83.3) Status:Active Family history of hypertensi on: Father(V17.49, Z82.49) Status:Active Family history of malignant neoplasm of breast: Grandparent, Aunt(V16.3, Z80.3) Status:Active Family history of pancreatic cancer: Grandparent(V16.0, Z80.0) Status:Active No pertinent family history: Mother(V49.89, Z78.9) Comments:mom had breast canc er in hre 20s, multiple maternal aunts; Status:Active Unknown Family Member Name Dates Details Family history of diabetes m ellitus: Father(V18.0, Z83.3) Status:Active Family history of hypertensi on: Father(V17.49, Z82.49) Status:Active Family history of malignant neoplasm of breast: Grandparent, Aunt(V16.3, Z80.3) Status:Active Family history of pancreatic cancer: Grandparent(V16.0, Z80.0) Status:Active No pertinent family history: Mother(V49.89, Z78.9) Comments:mom had breast canc er in hre 20s, multiple maternal aunts; Status:Active Unknown Family Member Name Dates Details Family history of diabetes m ellitus: Father(V18.0, Z83.3) Status:Active Family history of hypertensi on: Father(V17.49, Z82.49) Status:Active Family history of malignant neoplasm of breast: Grandparent, Aunt(V16.3, Z80.3) Status:Active Family history of pancreatic cancer: Grandparent(V16.0, Z80.0) Status:Active No pertinent family history: Mother(V49.89, Z78.9) Comments:mom had breast canc er in hre 20s, multiple maternal aunts; Status:Active Unknown Family Member Name Dates Details Family history of diabetes m ellitus: Father(V18.0, Z83.3) Status:Active Family history of hypertensi on: Father(V17.49, Z82.49) Status:Active Family history of malignant neoplasm of breast: Grandparent, Aunt(V16.3, Z80.3) Status:Active Family history of pancreatic cancer: Grandparent(V16.0, Z80.0) Status:Active No pertinent family history: Mother(V49.89, Z78.9) Comments:mom had breast canc er in hre 20s, multiple maternal aunts; Status:Active Unknown Family Member Name Dates Details Family history of diabetes m ellitus: Father(V18.0, Z83.3) Status:Active Family history of hypertensi on: Father(V17.49, Z82.49) Status:Active Family history of malignant neoplasm of breast: Grandparent, Aunt(V16.3, Z80.3) Status:Active Family history of pancreatic cancer: Grandparent(V16.0, Z80.0) Status:Active No pertinent family history: Mother(V49.89, Z78.9) Comments:mom had breast canc er in hre 20s, multiple maternal aunts; Status:Active Unknown Family Member Name Dates Details Family history of diabetes m ellitus: Father(V18.0, Z83.3) Status:Active Family history of hypertensi on: Father(V17.49, Z82.49) Status:Active Family history of malignant neoplasm of breast: Grandparent, Aunt(V16.3, Z80.3) Status:Active Family history of pancreatic cancer: Grandparent(V16.0, Z80.0) Status:Active No pertinent family history: Mother(V49.89, Z78.9) Comments:mom had breast canc er in hre 20s, multiple maternal aunts; Status:Active Unknown Family Member Name Dates Details Family history of diabetes m ellitus: Father(V18.0, Z83.3) Status:Active Family history of hypertensi on: Father(V17.49, Z82.49) Status:Active Family history of malignant neoplasm of breast: Grandparent, Aunt(V16.3, Z80.3) Status:Active Family history of pancreatic cancer: Grandparent(V16.0, Z80.0) Status:Active No pertinent family history: Mother(V49.89, Z78.9) Comments:mom had breast canc er in hre 20s, multiple maternal aunts; Status:Active Unknown Family Member Name Dates Details Family history of diabetes m ellitus: Father(V18.0, Z83.3) Status:Active Family history of hypertensi on: Father(V17.49, Z82.49) Status:Active Family history of malignant neoplasm of breast: Grandparent, Aunt(V16.3, Z80.3) Status:Active Family history of pancreatic cancer: Grandparent(V16.0, Z80.0) Status:Active No pertinent family history: Mother(V49.89, Z78.9) Comments:mom had breast canc er in hre 20s, multiple maternal aunts; Status:Active Unknown Family Member Name Dates Details Family history of diabetes m ellitus: Father(V18.0, Z83.3) Status:Active Family history of hypertensi on: Father(V17.49, Z82.49) Status:Active Family history of malignant neoplasm of breast: Grandparent, Aunt(V16.3, Z80.3) Status:Active Family history of pancreatic cancer: Grandparent(V16.0, Z80.0) Status:Active No pertinent family history: Mother(V49.89, Z78.9) Comments:mom had breast canc er in hre 20s, multiple maternal aunts; Status:Active Unknown Family Member Name Dates Details Family history of diabetes m ellitus: Father(V18.0, Z83.3) Status:Active Family history of hypertensi on: Father(V17.49, Z82.49) Status:Active Family history of malignant neoplasm of breast: Grandparent, Aunt(V16.3, Z80.3) Status:Active Family history of pancreatic cancer: Grandparent(V16.0, Z80.0) Status:Active No pertinent family history: Mother(V49.89, Z78.9) Comments:mom had breast canc er in hre 20s, multiple maternal aunts; Status:Active Relationship Condition Age at Onset Recorded Date/T saba grandmother Malignant neoplasm Unknown grandmother Malignant neoplasm of breast 40 mother Malignant neoplasm 30 Advance Directives No Advanced Directives Records FoundNo Advanced Directives Records FoundNo Advanced Directives Records FoundNo Advanced Directives Records FoundNo Advanced Directives Records FoundNo Advanced Directives Records FoundNo Advanced Directives Records FoundNo Advanced Directives Records FoundNo Advanced Directives Records FoundNo Advanced Directives Records FoundNo Advanced Directives Records FoundNo Advanced Directives Records FoundNo Advanced Directives Records FoundNo Advanced Directives Records FoundNo Advanced Directives Records Found Chief Complaint NPV in office today for bright red blood with BM for several years patient states occasionally she will have a dark black stool, mostly bright red blood in stool and toilet. No food allergy testing previously, she has constipation and diarrhea with frequency.* Patient here today to be seen for lower mid back discomfort since 11/2018 intermittently and more constant for the past 2 months. Patient states discomfort can be so strong that one time she almost dropped her son when she was holding him. 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 * Patient has been taking OTC Ibuprofen and last time taken was last night. * Patient states OB physician advised her to be seen by an orthopedic physician as patient has hx of epidural injection. * 26 y/o female presents for 2 month f/u * Pt states the increase on the Wellbutrin seems to be better * Pt does reports sometimes she feels she may need more, but other days she is fine * Pt still reports continuing problems with her back * 26 y/o female presents for RT wrist ganglion cyst * Present for a couple years * States its been bothering her the last couple weeks * She states its like a stabbing pain * She cannot bend her wrist to work out Preoperative evaluationPatient is here for her yearly exam and pap test. LMP: 11/17/2022. Patient does self breast exams and has no concerns at this time. Reason for Referral Specialty Diagnoses / Procedures Referred By Contac t Referred To Contact Diagnoses Essential hypertension Tachycardia Morbid obesity with body mass index of 50 or higher PCOS (polycystic ovarian syndrome) Gastroesophageal reflux disease, unspecified whether esophagitis present Chronic pain of both hips Procedures ECG Rajiv Kemp MD [address] [place], [place] [id number] Referral ID Status Reason Start Date Expiration Date V isits Requested Visits Authorized [id number] New Request 12/28/2020 01/22/2022 1 1 Specialty Diagnoses / Procedures Referred By Contac t Referred To Contact Diagnoses Essential hypertension Tachycardia Morbid obesity with body mass index of 50 or higher PCOS (polycystic ovarian syndrome) Gastroesophageal reflux disease, unspecified whether esophagitis present Chronic pain of both hips Rajiv Kemp MD [address] [place], [place] [id number] Referral ID Status Reason Start Date Expiration Date V isits Requested Visits Authorized [id number] New Request 12/28/2020 01/22/2022 1 1 Specialty Diagnoses / Procedures Referred By Contac t Referred To Contact Psychology Diagnoses Essential hypertension Tachycardia Morbid obesity with body mass index of 50 or higher PCOS (polycystic ovarian syndrome) Gastroesophageal reflux disease, unspecified whether esophagitis present Chronic pain of both hips Rajiv Kemp MD [address] [place] [id number] Joshua Akers, Vanita [address] [place] [phone] Referral ID Status Reason Start Date Expiration Date V isits Requested Visits Authorized [id number] Auth Not Needed 12/28/2020 01/22/2022 1 1 Specialty Diagnoses / Procedures Referred By Contac t Referred To Contact Nutrition and Dietetics Diagnoses Essential hypertension Tachycardia Morbid obesity with body mass index of 50 or higher PCOS (polycystic ovarian syndrome) Gastroesophageal reflux disease, unspecified whether esophagitis present Chronic pain of both hips Rajiv Kemp MD [address] [place] [address] [facility] Nutrition And Dietetics [address] [place] [phone] Referral ID Status Reason Start Date Expiration Date V isits Requested Visits Authorized [id number] New Request 12/28/2020 01/22/2022 15 15 Specialty Diagnoses / Procedures Referred By Contac t Referred To Contact Orthopaedic Surgery Diagnoses Chronic pain of both hips Rajiv Kemp MD [address] [place] [id number] Orthopaedic Surgery [address] [place] [address] Referral ID Status Reason Start Date Expiration Date V isits Requested Visits Authorized [id number] New Request 12/28/2020 01/22/2022 1 1 Specialty Diagnoses / Procedures Referred By Contac t Referred To Contact Diagnoses Sleep apnea, unspecified type Snoring Overweight Insomnia, unspecified type Morning headache Fatigue, unspecified type Hypersomnia, unspecified Procedures SLEEP STUDY - TITRATION Suzanna, Shavonne Hood, RADIOGRAPHER ANGIOGRAM-TELETYPESETTER MONITOR [address] [phone] Referral ID Status Reason Start Date Expiration Date V isits Requested Visits Authorized [id number] New Request 12/24/2021 01/18/2023 1 1 Specialty Diagnoses / Procedures Referred By Contac t Referred To Contact Diagnoses Sleep apnea, unspecified type Snoring Overweight Insomnia, unspecified type Morning headache Fatigue, unspecified type Hypersomnia, unspecified Procedures SLEEP STUDY - DIAGNOSTIC Suzanna, Shavonne Erwin, RADIOGRAPHER ANGIOGRAM-TELETYPESETTER MONITOR [address] [phone] Referral ID Status Reason Start Date Expiration Date V isits Requested Visits Authorized [id number] New Request 12/24/2021 01/18/2023 1 1 Specialty Diagnoses / Procedures Referred By Contac t Referred To Contact Radiology Diagnoses Ganglion cyst Procedures MR Wrist Right Without Contrast Cassidy Thomas, TELETYPESETTER MONITOR [address] [place] [address] Referral ID Status Reason Start Date Expiration Date V isits Requested Visits Authorized [id number] New Request 12/30/2021 12/30/2022 1 1 Chief Complaint and Reason for Visit Chief Complaint Admit Date LMP 04/01 DOMONIQUE 01/06June 09, 2024 11 :29am 14 WK OB July 11, 2024 2:20pm 18 WK OB August 04, 2024 9:16 am Reason for Visit Admit Date Family history of cervical cancer Januar y 2024 11:29am FH: breast cancer June 09, 2024 11 :29am H/O shoulder dystocia in [place] , currently June 09, 2024 11:29am Obesity affecting June 09, 2024 11:29am June 09, 2024 11 :29am Supervision of high-risk Junua ry 2024 11:29am Tachycardia June 09, 2024 11 :29am Family history of cervical cancer ua 2024 2:20pm FH: breast cancer July 11, 2024 2:20pm H/O shoulder dystocia in [place] , currently July 11, 2024 2:20pm Obesity affecting July 2:20pm July 11, 2024 2:20pm Supervision of high-risk u 2024 2:20pm Tachycardia July 11, 2024 2:20pm Family history of cervical cancer August 04, 2024 9:16am FH: breast cancer August 04, 2024 9:16 am H/O shoulder dystocia in [place] , currently August 04, 2024 9:16am Obesity affecting August 04, 2 025 9:16am August 04, 2024 9:16 am Supervision of high-risk August 04, 2024 9:16am Tachycardia August 04, 2024 9:16 am Chief Complaint Admit Date LMP 04/01 DOMONIQUE 01/06June 09, 2024 11 :29am 14 WK OB July 11, 2024 2:20pm 18 WK OB August 04, 2024 9:16 am BLEEDING August 29, 2024 1:4 0pm Chief Complaint Admit Date 14 WK OB July 11, 2024 2:20pm 18 WK OB August 04, 2024 9:16 am BLEEDING August 29, 2024 1:4 0pm BLEEDING August 30, 2024 4:13 pm 22WK OB August 31, 2024 9:34 am 26 WK OB/ GLUCOSE September 28, 2024 9:2 7am 30 WK OB October 26, 2024 9:48a m Reason for Visit Admit Date H/O shoulder dystocia in [place] , currently July 11, 2024 2:20pm Obesity affecting July 2:20pm July 11, 2024 2:20pm Supervision of high-risk u crescencio 2024 2:20pm Tachycardia July 11, 2024 2:20pm Family history of cervical cancer Februa ry 2024 2:20pm FH: breast cancer July 11, 2024 2:20pm H/O shoulder dystocia in [place] , currently August 04, 2024 9:16am Obesity affecting August 04 025 9:16am August 04, 2024 9:16 am Supervision of high-risk August 04, 2024 9:16am Tachycardia August 04, 2024 9:16 am Family history of cervical cancer August 04, 2024 9:16am FH: breast cancer August 04, 2024 9:16 am Low lying placenta, antepartum July 1:40pm 21 weeks gestation of August 292024 1:40pm Spotting affecting August 29, 2024 1:40pm Anemia in preg-unspec August 31, 2024 9: 34am H/O shoulder dystocia in [place] , currently August 31, 2024 9:34am Low lying placenta, antepartum August 9:34am Obesity affecting August 31, 2 025 9:34am August 31, 2024 9:34 am Supervision of high-risk August 31, 2024 9:34am Tachycardia August 31, 2024 9:34 am 21 weeks gestation of August 9:34am Family history of cervical cancer August 31, 2024 9:34am FH: breast cancer August 31, 2024 9:34 am Spotting affecting August 31, 2024 9:34am Anemia in preg-unspec September 28, 2024 9 :27am H/O shoulder dystocia in [place] , currently September 28, 2024 9:27am History of bariatric surgery September 28, 2024 9:27am Low lying placenta, antepartum August 9:27am Obesity affecting September 28, 2024 9:27am September 28, 2024 9:2 7am Supervision of high-risk September 28, 2024 9:27am Tachycardia September 28, 2024 9:2 7am Family history of cervical cancer September 28, 2024 9:27am FH: breast cancer September 28, 2024 9:2 7am Anemia in preg-unspec October 26, 2024 9:4 8am Exposure to parvovirus October 26, 2024 9: 48am H/O shoulder dystocia in [place] , currently October 26, 2024 9:48am History of bariatric surgery October 26 025 9:48am Low lying placenta, antepartum October 26, 2024 9:48am Obesity affecting October 26 9:48am October 26, 2024 9:48a m Supervision of high-risk September 302024 9:48am Tachycardia October 26, 2024 9:48a m Chief Complaint Admit Date 18 WK OB August 04, 2024 9:16 am BLEEDING August 29, 2024 1:4 0pm BLEEDING August 30, 2024 4:13 pm 22WK OB August 31, 2024 9:34 am 26 WK OB/ GLUCOSE September 28, 2024 9:2 7am 30 WK OB October 26, 2024 9:48a m 32 WK OB November 10, 2024 9:48 am Reason for Visit Admit Date H/O shoulder dystocia in prior , currently August 04, 2024 9:16am Obesity affecting August 04 025 9:16am August 04, 2024 9:16 am Supervision of high-risk August 04, 2024 9:16am Tachycardia August 04, 2024 9:16 am Family history of cervical cancer August 04, 2024 9:16am FH: breast cancer August 04, 2024 9:16 am Low lying placenta, antepartum July 1:40pm 21 weeks gestation of August 292024 1:40pm Spotting affecting August 29, 2024 1:40pm Anemia in preg-unspec August 31, 2024 9: 34am H/O shoulder dystocia in prior , currently August 31, 2024 9:34am Low lying placenta, antepartum August 9:34am Obesity affecting August 31, 025 9:34am August 31, 2024 9:34 am Supervision of high-risk August 31, 2024 9:34am Tachycardia August 31, 2024 9:34 am 21 weeks gestation of August 9:34am Family history of cervical cancer August 31, 2024 9:34am FH: breast cancer August 31, 2024 9:34 am Spotting affecting August 31, 2024 9:34am Anemia in preg-unspec September 28, 2024 9 :27am H/O shoulder dystocia in prior , currently September 28, 2024 9:27am History of bariatric surgery September 28, 2024 9:27am Low lying placenta, antepartum August 9:27am Obesity affecting September 28, 2024 9:27am September 28, 2024 9:2 7am Supervision of high-risk September 28, 2024 9:27am Tachycardia September 28, 2024 9:2 7am Family history of cervical cancer September 28, 2024 9:27am FH: breast cancer September 28, 2024 9:2 7am Anemia in preg-unspec October 26, 2024 9:4 8am Exposure to parvovirus October 26, 2024 9: 48am H/O shoulder dystocia in prior , currently October 26, 2024 9:48am History of bariatric surgery October 26, 025 9:48am Low lying placenta, antepartum October 26, 2024 9:48am Obesity affecting October 26 9:48am October 26, 2024 9:48a m Supervision of high-risk September 302024 9:48am Tachycardia October 26, 2024 9:48a m Anemia affecting November 10 9:48am Anemia in preg-unspec November 10, 2024 9: 48am Exposure to parvovirus November 10, 2024 9 :48am H/O shoulder dystocia in prior , currently November 10, 2024 9:48am History of bariatric surgery November 10, 2024 9:48am Low lying placenta, antepartum October 9:48am Obesity affecting November 10 025 9:48am November 10, 2024 9:48 am Supervision of high-risk November 10, 2024 9:48am Tachycardia November 10, 2024 9:48 am Chief Complaint Admit Date 18 WK OB August 04, 2024 9:16 am BLEEDING August 29, 2024 1:4 0pm BLEEDING August 30, 2024 4:13 pm 22WK OB August 31, 2024 9:34 am 26 WK OB/ GLUCOSE September 28, 2024 9:2 7am 30 WK OB October 26, 2024 9:48a m 32 WK OB November 10, 2024 9:48 am VENOFER 300MG November 10, 2024 10:3 2am Chief Complaint Admit Date 18 WK OB August 04, 2024 9:16 am BLEEDING August 29, 2024 1:4 0pm BLEEDING August 30, 2024 4:13 pm 22WK OB August 31, 2024 9:34 am 26 WK OB/ GLUCOSE September 28, 2024 9:2 7am 30 WK OB October 26, 2024 9:48a m 32 WK OB November 10, 2024 9:48 am VENOFER 300MG November 10, 2024 10:3 2am 34 WK OB November 24, 2024 9:36 am Reason for Visit Admit Date H/O shoulder dystocia in prior , currently August 04, 2024 9:16am Obesity affecting August 04 025 9:16am August 04, 2024 9:16 am Supervision of high-risk August 04, 2024 9:16am Tachycardia August 04, 2024 9:16 am Family history of cervical cancer August 04, 2024 9:16am FH: breast cancer August 04, 2024 9:16 am Low lying placenta, antepartum July 1:40pm 21 weeks gestation of August 292024 1:40pm Spotting affecting August 29, 2024 1:40pm Anemia in preg-unspec August 31, 2024 9: 34am H/O shoulder dystocia in prior , currently August 31, 2024 9:34am Low lying placenta, antepartum August 9:34am Obesity affecting August 31, 025 9:34am August 31, 2024 9:34 am Supervision of high-risk August 31, 2024 9:34am Tachycardia August 31, 2024 9:34 am 21 weeks gestation of August 9:34am Family history of cervical cancer August 31, 2024 9:34am FH: breast cancer August 31, 2024 9:34 am Spotting affecting August 31, 2024 9:34am Anemia in preg-unspec September 28, 2024 9 :27am H/O shoulder dystocia in prior , currently September 28, 2024 9:27am History of bariatric surgery September 28, 2024 9:27am Low lying placenta, antepartum August 9:27am Obesity affecting September 28, 2024 9:27am September 28, 2024 9:2 7am Supervision of high-risk September 28, 2024 9:27am Tachycardia September 28, 2024 9:2 7am Family history of cervical cancer September 28, 2024 9:27am FH: breast cancer September 28, 2024 9:2 7am Anemia in preg-unspec October 26, 2024 9:4 8am Exposure to parvovirus October 26, 2024 9: 48am H/O shoulder dystocia in prior , currently October 26, 2024 9:48am History of bariatric surgery October 26 9:48am Low lying placenta, antepartum October 26, 2024 9:48am Obesity affecting October 26 9:48am October 26, 2024 9:48a m Supervision of high-risk September 302024 9:48am Tachycardia October 26, 2024 9:48a m Anemia affecting November 10 9:48am Anemia in preg-unspec November 10, 2024 9: 48am Exposure to parvovirus November 10, 2024 9 :48am H/O shoulder dystocia in prior , currently November 10, 2024 9:48am History of bariatric surgery November 10, 2024 9:48am Low lying placenta, antepartum October 9:48am Obesity affecting November 10 9:48am November 10, 2024 9:48 am Supervision of high-risk November 10, 2024 9:48am Tachycardia November 10, 2024 9:48 am Anemia affecting November 24 9:36am Anemia in preg-unspec November 24, 2024 9: 36am Exposure to parvovirus November 24, 2024 9 :36am H/O shoulder dystocia in prior , currently November 24, 2024 9:36am History of bariatric surgery November 24, 2024 9:36am Low lying placenta, antepartum October 9:36am Obesity affecting November 24 9:36am November 24, 2024 9:36 am Supervision of high-risk November 24, 2024 9:36am Tachycardia November 24, 2024 9:36 am Chief Complaint Admit Date 18 WK OB August 04, 2024 9:16 am BLEEDING August 29, 2024 1:4 0pm BLEEDING August 30, 2024 4:13 pm 22WK OB August 31, 2024 9:34 am 26 WK OB/ GLUCOSE September 28, 2024 9:2 7am 30 WK OB October 26, 2024 9:48a m 32 WK OB November 10, 2024 9:48 am VENOFER 300MG November 10, 2024 10:3 2am 34 WK OB November 24, 2024 9:36 am VENOFER 300MG November 24, 2024 10:1 9am Additional Source Comments INFORMATION SOURCE (unrecogn ized section and content) DATE CREATED AUTHOR 02/27/2019 [facility] DATE CREATED AUTHOR AUTHOR'S ORGANIZ ATION 04/21/2019 [facility] DATE CREATED AUTHOR AUTHOR'S ORGANIZ ATION 03/23/2022 [facility] DATE CREATED AUTHOR AUTHOR'S ORGANIZ ATION 03/25/2022 [facility] DATE CREATED AUTHOR AUTHOR'S ORGANIZ ATION 11/20/2022 [facility] DATE CREATED AUTHOR AUTHOR'S ORGANIZ ATION 12/02/2022 [employer] DATE CREATED AUTHOR AUTHOR'S ORGANIZ ATION 12/04/2022 [facility] DATE CREATED AUTHOR AUTHOR'S ORGANIZ ATION 12/18/2022 [facility] DATE CREATED AUTHOR AUTHOR'S ORGANIZ ATION 08/15/2023 [facility] DATE CREATED AUTHOR AUTHOR'S ORGANIZ ATION 11/01/2023 [facility] DATE CREATED AUTHOR AUTHOR'S ORGANIZ ATION 05/19/2024 [facility] DATE CREATED AUTHOR AUTHOR'S ORGANIZ ATION 05/20/2024 [facility] DATE CREATED AUTHOR AUTHOR'S ORGANIZ ATION 06/17/2024 [facility] DATE CREATED AUTHOR AUTHOR'S ORGANIZ ATION 11/20/2024 [facility] DATE CREATED AUTHOR AUTHOR'S ORGANIZ ATION 12/04/2024 [facility] Reason for Visit (unrecogniz ed section and content) Reason Comments Consult bairiatric Specialty Diagnoses / Procedures Referred By Contac t Referred To Contact Nutrition and Dietetics Diagnoses Essential hypertension Tachycardia Morbid obesity with body mass index of 50 or higher PCOS (polycystic ovarian syndrome) Gastroesophageal reflux disease, unspecified whether esophagitis present Chronic pain of both hips Rajiv Kemp MD [address] [place], [place] [id number] [facility] Nutrition And Dietetics [address] [place] [phone] Referral ID Status Reason Start Date Expiration Date V isits Requested Visits Authorized [id number] New Request 12/28/2020 01/22/2022 15 15 Reason Comments New Patient Eating Disorder Reason Comments Nutrition Consultation Specialty Diagnoses / Procedures Referred By Contac t Referred To Contact Nutrition and Dietetics Diagnoses Essential hypertension Tachycardia Morbid obesity with body mass index of 50 or higher PCOS (polycystic ovarian syndrome) Gastroesophageal reflux disease, unspecified whether esophagitis present Chronic pain of both hips Rajiv Kemp MD [address] [place], [place] [id number] [facility] Nutrition And Dietetics [address] [place] [phone] Reason Comments Follow-up Eating Disorder Reason Comments New Patient Pre-operative Consultation Daytime Sleepiness Restless Legs Insomnia Specialty Diagnoses / Procedures Referred By Contac t Referred To Contact Sleep Medicine Diagnoses Essential hypertension Tachycardia Morbid obesity with body mass index of 50 or higher PCOS (polycystic ovarian syndrome) Gastroesophageal reflux disease, unspecified whether esophagitis present Chronic pain of both hips Rajiv Kemp MD [address] [place] [address] Shavonne Briseno, RADIOGRAPHER ANGIOGRAM-TELETYPESETTER MONITOR [address] [phone] Referral ID Status Reason Start Date Expiration Date Visits Re quested Visits Authorized [id number] Closed 12/28/2020 01/22/2022 15 15 Reason Comments Pain Reason Comments Daytime Sleepiness Specialty Diagnoses / Procedures Referred By Nory t Referred To Contact Diagnoses Sleep apnea, unspecified type Snoring Overweight Insomnia, unspecified type Morning headache Fatigue, unspecified type Hypersomnia, unspecified Procedures SLEEP STUDY - DIAGNOSTIC Shavonne Briseno, RADIOGRAPHER ANGIOGRAM-TELETYPESETTER MONITOR [address] [phone] Referral ID Status Reason Start Date Expiration Date Visits Re quested Visits Authorized [id number] Closed 12/24/2021 01/18/2023 1 1 Reason Comments Sleep Problem Specialty Diagnoses / Procedures Referred By Nory t Referred To Contact Diagnoses Obstructive sleep apnea Sleep related hypoxia Snoring Overweight Morning headache Fatigue, unspecified type Encounter to discuss test results Procedures SLEEP STUDY - TITRATION Shavonne Briseno, RADIOGRAPHER ANGIOGRAM-TELETYPESETTER MONITOR [address] [phone] Referral ID Status Reason Start Date Expiration Date Visits Re quested Visits Authorized [id number] Open 01/30/2022 02/24/2023 1 1 Reason Comments Alopecia Reason Comments Sleep Apnea Reason Comments Follow-up Discuss medications Reason Comments Pre-op Exam Pre-op Sleeve 03/11 ONT Specialty Diagnoses / Procedures Referred By Nory t Referred To Contact Diagnoses Morbid obesity with body mass index of 50 or higher Essential hypertension Morbid obesity with body mass index of 50 or higher [E66.01] Essential hypertension [I10] Procedures MN LAP, KAMERON RESTRICT PROC, LONGITUDINAL GASTRECTOMY GASTRECTOMY LONGITUDINAL (SLEEVE) ROBOTIC Jimena Gracia, DO [address] [place] [address] Referral ID Status Reason Start Date Expiration Date Visits Re quested Visits Authorized [id number] 02/19/2023 1 1 Reason Comments Post Op Visit 2 wk post op sleeve 03/11/23 Reason Comments Post Op Visit 1 mo post op sleeve Reason Onset Date Comments 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 Patient does do regular self breast exams and has no concerns at this time. LMP: 11/19/23 Care Teams (unrecognized sec tion and content) Team Status: Active Member Role Status Dates No Primary Care Physician Primary Care Provider Active Team Status: Inactive Member Role Status Dates Dr. Adelaida Burnett DO Attending Provider Activ e Start: July 11, 2024 End: July 11, 2024 Team Status: Inactive Member Role Status Dates Dr. Isabel Luz MD Attending Provider Active Start: August 04, 2024 End: August 04, 2024 Team Status: Inactive Member Role Status Dates DEFINED NOT Primary Care Provider Active Start: August 04, 2024 End: August 04, 2024 Jocelyn Malcolm CNM Attending Provider Active S tart: August 04, 2024 End: August 04, 2024 Jocelyn Malcolm CNM Referring Provider Active S tart: August 04, 2024 End: August 04, 2024 Team Status: Inactive Member Role Status Dates No Primary Care Physician Primary Care Provider Active Start: August 29, 2024 End: August 29, 2024 Dr. Isabel Luz MD Attending Provider Active Start: August 29, 2024 End: August 29, 2024 Dr. Isabel Luz MD Referring Provider Active Start: August 29, 2024 End: August 29, 2024 Team Status: Active Member Role Status Dates No Primary Care Physician Primary Care Provider Active Start: August 30, 2024 Dr. Isabel Luz MD Attending Provider Active Start: August 30, 2024 Dr. Isabel Luz MD Referring Provider Active Start: August 30, 2024 Dr. Isabel Luz MD Other Provider Active Start: August 30, 2024 Team Status: Inactive Member Role Status Dates Luisa Curiel BAND TEACHER, BAND TEACHER-C Attending Provider Active Start: August 31, 2024 End: August 31, 2024 No Primary Care Physician Primary Care Provider Active Start: August 31, 2024 End: August 31, 2024 No Primary Care Physician Referring Provider Active Start: August 31, 2024 End: August 31, 2024 Team Status: Inactive Member Role Status Dates Dr. Isabel Luz MD Attending Provider Active Start: September 28, 2024 End: September 28, 2024 No Primary Care Physician Primary Care Provider Active Start: September 28, 2024 End: September 28, 2024 No Primary Care Physician Referring Provider Active Start: September 28, 2024 End: September 28, 2024 Team Status: Inactive Member Role Status Dates No Primary Care Physician Primary Care Provider Active Start: September 28, 2024 End: September 28, 2024 Dr. Isabel Luz MD Attending Provider Active Start: September 28, 2024 End: September 28, 2024 Dr. Isabel Luz MD Referring Provider Active Start: September 28, 2024 End: September 28, 2024 Team Status: Inactive Member Role Status Dates Dr. Adelaida Burnett DO Attending Provider Activ e Start: October 26, 2024 End: October 26, 2024 No Primary Care Physician Primary Care Provider Active Start: October 26, 2024 End: October 26, 2024 No Primary Care Physician Referring Provider Active Start: October 26, 2024 End: October 26, 2024 Team Status: Active Member Role Status Dates No Primary Care Physician Primary Care Provider Active Start: October 26, 2024 Dr. Adelaida Burnett DO Attending Provider Activ e Start: October 26, 2024 Dr. Adelaida Burnett DO Referring Provider Activ e Start: October 26, 2024 Team Status: Active Member Role Status Dates Rosi Carr Attending Provider Active Start: Luna 2023 Team Status: Inactive Member Role Status Dates Jocelyn Malcolm CNM Attending Provider Active S tart: June 09, 2024 End: June 09, 2024 Customer Experience Associate Relationship Specialty Start Date End Date Sierra Santos, [address] [place] [id number] PCP - General Internal Medicine 11/12/20 Customer Experience Associate Relationship Specialty Start Date End Date Sierra Santos DO [address] [place] [address] PCP - General Internal Medicine 11/12/20 Customer Experience Associate Relationship Specialty Start Date End Date Sierra Santos DO [address] [place] [address] PCP - General Internal Medicine 11/12/20 Customer Experience Associate Relationship Specialty Start Date End Date José LuisshawnerinshawnSierra DO [address] [place] [address] PCP - General Internal Medicine 11/12/20 Customer Experience Associate Relationship Specialty Start Date End Date José Luisshawnerinshawn Sierra, DO [address] [place] [address] PCP - General Internal Medicine 11/12/20 Customer Experience Associate Relationship Specialty Start Date End Date JuanerinKash escobarestelita DO [address] [place] [address] PCP - General Internal Medicine 11/12/20 Customer Experience Associate Relationship Specialty Start Date End Date Danielle Sierra, DO [address] [place] [address] PCP - General Internal Medicine 11/12/20 Customer Experience Associate Relationship Specialty Start Date End Date Kash Santosn, DO [address] [place] [address] PCP - General Internal Medicine 11/12/20 Customer Experience Associate Relationship Specialty Start Date End Date Sierra Santos, DO [address] [place] [address] PCP - General Internal Medicine 11/13/21 Customer Experience Associate Relationship Specialty Start Date End Date Sierra Santos DO [address] [place] [address] PCP - General Internal Medicine 11/12/20 Customer Experience Associate Relationship Specialty Start Date End Date Sierra Santos DO [address] [place] [address] PCP - General Internal Medicine 11/13/21 Customer Experience Associate Relationship Specialty Start Date End Date Sierra Santos DO [address] [place] [address] PCP - General Internal Medicine 11/12/20 Customer Experience Associate Relationship Specialty Start Date End Date Sierra Santos DO [address] [place] [address] PCP - General Internal Medicine 11/13/21 Customer Experience Associate Relationship Specialty Start Date End Date Sierra Santos DO [address] [facility] [place] [address] PCP - General 09/11/20 Sierra Santos DO [address] [facility] [address] PCP - [facility] O PCP 06/01/21 Customer Experience Associate Relationship Specialty Start Date End Date Sierra Santos DO [address] [place] [address] PCP - General Internal Medicine 11/12/20 Customer Experience Associate Relationship Specialty Start Date End Date Sierra Santos DO [address] [place] [address] PCP - General Internal Medicine 11/12/20 Customer Experience Associate Relationship Specialty Start Date End Date Sierra Santos DO [address] [facility] [address] PCP - General 09/11/20 Sierra Santos DO [address] [place] [address] PCP - [facility]mer O PCP 06/01/21 Sierra Santos DO [address] [facility] [address] PCP - [facility] Medicaid PCP 08/30/22 Customer Experience Associate Relationship Specialty Start Date End Date Sierra Santos DO [address] [facility] [address] PCP - General Internal Medicine 11/12/20 Customer Experience Associate Relationship Specialty Start Date End Date Sierra Santos DO [address] [facility] [address] PCP - General Internal Medicine 11/12/20 Customer Experience Associate Relationship Specialty Start Date End Date Sierra Santos DO [address] [facility] [address] PCP - General Internal Medicine 11/12/20 Customer Experience Associate Relationship Specialty Start Date End Date Sierra Santos DO [address] [facility] [address] PCP - General Internal Medicine 11/12/20 Customer Experience Associate Relationship Specialty Start Date End Date Sierra Santos DO [address] [facility] [address] PCP - General 09/11/20 Customer Experience Associate Relationship Specialty Start Date End Date Danielle Sierra Dodd DO [address] [facility] [address] PCP - General 09/11/20 Customer Experience Associate Relationship Specialty Start Date End Date DanielleKashestelita Dodd DO [address] [place] [address] PCP - General 09/11/20 Team Status: Active Member Role Status Dates DEFINED NOT Primary Care Provider Active Team Status: Inactive Member Role Status Dates No Primary Care Physician Primary Care Provider Active Start: October 26, 2024 End: October 26, 2024 Dr. Adelaida Burnett , DO Attending Provider Activ e Start: October 26, 2024 End: October 26, 2024 Dr. Adelaida Burnett , Referring Provider Activ e Start: October 26, 2024 End: October 26, 2024 Team Status: Inactive Member Role Status Dates Jocelyn Malcolm CNM Attending Provider Active S tart: November 10, 2024 End: November 10, 2024 No Primary Care Physician Primary Care Provider Active Start: November 10, 2024 End: November 10, 2024 No Primary Care Physician Referring Provider Active Start: November 10, 2024 End: November 10, 2024 Team Status: Inactive Member Role Status Dates No Primary Care Physician Primary Care Provider Active Start: November 10, 2024 End: November 10, 2024 Dr. Adelaida Burnett , Attending Provider Activ e Start: November 10, 2024 End: November 10, 2024 Dr. Adelaida Burnett , Referring Provider Activ e Start: November 10, 2024 End: November 10, 2024 Team Status: Inactive Member Role Status Dates Dr. Isabel Luz MD Attending Provider Active Start: November 24, 2024 End: November 24, 2024 No Primary Care Physician Primary Care Provider Active Start: November 24, 2024 End: November 24, 2024 No Primary Care Physician Referring Provider Active Start: November 24, 2024 End: November 24, 2024 Team Status: Inactive Member Role Status Dates No Primary Care Physician Primary Care Provider Active Start: November 24, 2024 End: November 24, 2024 Dr. Adelaida Burnett DO Attending Provider Activ e Start: November 24, 2024 End: November 24, 2024 Dr. Adelaida Burnett DO Referring Provider Activ e Start: November 24, 2024 End: November 24, 2024 <item><item> Privacy Markings (unrecogniz ed section and content) Section Author: Megan Abdi PROHIBITION ON REDISCLOSURE OF CONFIDENTIAL INFORMATION This notice accompanies a disclosure of information concerning a client made to you with the consent of such client. Section Author: Megan Abdi PROHIBITION ON REDISCLOSURE OF CONFIDENTIAL INFORMATION This notice accompanies a disclosure of information concerning a client made to you with the consent of such client. Scheduled Active and Recently Administ ered Medications (unrecognized section and content) Medication Order 03/10/2023 03/11/2023 03/12/2023 Acetaminophen (TYLENOL) oral solution 650 mg 650 mg, Oral, EVERY 6 HOURS NON-STANDARD, First dose on Thu03/11/23 at 1700, Until Discontinued, Maximum dose of acetaminophen is 4000 mg from all sources in 24 hours., Post-op/Post-Proc 1829 (Not Given - Provider: Cara Malcolm RN - Reason: Patient/family refused)3499 (Given - Provider: Hilda Ho RN) 0604 (Given - Provider: Hilda Ho RN)1437 (Given - Provider: Ethel Menjivar RN) acetaminophen (TYLENOL) tablet 1,000 mg (COMPLETED) 1,000 mg, Oral, ONCE, 1 dose, On Thu03/11/23 at 1030, With a sip of water on arrival to holding, Pre-op/Pre-Proc 1105 (Given - Provider: Sarah Gracia RN) atomoxetine (STRATTERA) capsule 25 mg 25 mg, Oral, DAILY, First dose on Thu03/11/23 at 1415, Until Discontinued, Swallow capsules whole; do not open capsules. If opened accidentally, do not touch eyes; wash hands immediately (product is an ocular irritant)., Post-op/Post-Proc 1410 (Held by provider - Provider: Jimena Gracia DO - Reason: Other - Comment: Pt home med)1415 (Automatically Held - Provider: Jimena Gracia DO) 0900 (Automatically Held - Provider: Jimena Gracia DO)1652 (Unheld by provider - Provider: System Discharge) buPROPion (WELLBUTRIN) tablet XL 300 mg 300 mg, Oral, DAILY, First dose on Thu03/11/23 at 1800, Until Discontinued, Do not crush, chew, or divide., Post-op/Post-Proc 1723 (Not Given - Provider: Cara Malcolm RN - Reason: Other - Comment: patient will start in the am) 0939 (Given - Provider: Ethel Menjivar RN) ceFAZolin (ANCEF) 3 g in Sodium chloride 0.9%, with overfill 125 mL (total volume) IVPB (COMPLETED) 3 g, Intravenous, Administer over 15 Minutes, ONCE, 1 dose, On Thu03/11/23 at 1030, Administer in surgical area only - do not administer on the floor, Pre-op/Pre-Proc 1206 ($$New Bag$$ - Provider: Lydia Gracia APRN-ARMATURE BALANCER) Enoxaparin Sodium (LOVENOX) injection 40 mg 40 mg, Subcutaneous, EVERY 12 HOURS, First dose on Misty 03/12/23 at 0900, Until Discontinued, Indications: DVT/PE prophylaxis, Post-op/Post-Proc 0938 (Given - Provider: Ethel Menjivar RN) Gabapentin (NEURONTIN) capsule 600 mg (COMPLETED) 600 mg, Oral, ONCE, 1 dose, On Thu03/11/23 at 1030, With a sip of water on arrival to [facility], Pre-op/Pre-Proc 1105 (Given - Provider: Sarah Gracia RN) Heparin injection 5,000 Units (COMPLETED) 5,000 Units, Subcutaneous, ONCE, 1 dose, On Thu03/11/23 at 1030, Day of Surgery, Pre-op/Pre-Proc 1105 (Given - Provider: Sarah Gracia RN) Ketorolac (TORADOL) injection 15 mg 15 mg, Intravenous, EVERY 6 HOURS NON-STANDARD, 8 doses, First dose on Thu03/11/23 at 1430, Last dose on Thu03/13/23 at 0830, Post-op/Post-Proc 1454 (Given - Provider: Ella Cox RN)2037 (Given - Provider: Hilda Ho RN) 023 (Given - Provider: Hilda Ho, RN)0938 (Given - Provider: Ethel Menjivar, ROJELIO)1437 (Given - Provider: Ethel Menjivar RN) Metoprolol succinate (TOPROL-XL) tablet XL 50 mg 50 mg, Oral, DAILY, First dose on Thu03/11/23 at 1800, Until Discontinued, Slow release product. Do not crush. Extended release can be cut in half., Post-op/Post-Proc 184 (Given - Provider: Jocelyn Kee, ROJELIO) Ondansetron 4mg/2ml (ZOFRAN) injection 4 mg 4 mg, Intravenous, EVERY 6 HOURS NON-STANDARD, First dose on Thu03/11/23 at 2000, Until Discontinued, Post-op/Post-Proc 2038 (Given - Provider: Hilda Ho, ROJELIO) 023 (Given - Provider: Hilda Ho, RN)0938 (Given - Provider: Ethel Menjivar, ROJELIO)1437 (Given - Provider: Ethel Menjivar, ROJELIO) Pantoprazole (PROTONIX) injection 40 mg 40 mg, Intravenous, DAILY, First dose on Thu03/11/23 at 1415, Until Discontinued, Dilute each 40 mg vial with 10 mL of NS. All bolus doses, whether 40 mg or 80 mg, should be administered over at least two minutes., Indications: Inpt Stress Ulcer Prophylaxis, Post-op/Post-Proc 1454 (Given - Provider: Ella Cox RN) 0938 (Given - Provider: Ethel Menjivar, ROJELIO) Scopolamine (TRANSDERM-SCOP) patch 1 patch (CANCELED)(Linked Group 1) 1 patch, Transdermal, ONCE, 1 dose, On Thu03/11/23 at 1030, Behind ear upon arrival to [facility]. , Pre-op/Pre-Proc 1105 (Patch Applied - Provider: Sarah Gracia RN - Comment: L ear)1401 (Due: Patch Removed - Provider: Erendira Hewitt RN - Comment: Time automatically adjusted from order being discontinued) Continuous Medication Order 03/10/2023 03/11/2023 03/12/2023 Lactated ringers 1,000 mL with Potassium chloride 20 mEq IV solution Intravenous, CONTINUOUS, Starting on Thu03/11/23 at 1430, Until Misty 03/12/23 at 1652, Post-op/Post-Proc 1454 ($$New Bag$$ - Provider: Ella Cox RN) 0235 ($$New Bag$$ - Provider: Hilda Ho RN)0952 (Rate/Dose Verify - Provider: Ethel Menjivar, ROJELIO)1425 (Stopped - Provider: Ethel Menjivar, ROJELIO) Lactated ringers IV solution (CANCELED) Intravenous, at 100 mL/hr, CONTINUOUS, Starting on Thu03/11/23 at 1030, Until Thu03/11/23 at 1401, Pre-op/Pre-Proc 1059 ($$New Bag$$ - Provider: Sarah Gracia RN) 1425 (Stopped - Provider: Ethel Menjivar, ROJELIO) PRN Medication Order 03/10/2023 03/11/2023 03/12/2023 diphenhydrAMINE (BENADRYL) injection 25-50 mg 25-50 mg, Intravenous, EVERY 4 HOURS NEEDED, Starting on Thu03/11/23 at 1401, Until Misty 03/12/23 at 1652, Itching, Sleep, insomnia, Post-op/Post-Proc Enalaprilat (VASOTEC) injection 1.25 mg 1.25 mg, Intravenous, EVERY 6 HOURS NEEDED, Starting on Thu03/11/23 at 1401, Until Misty 03/12/23 at 1652, for SBP greater than 150 mm/Hg, Post-op/Post-Proc HYDROmorphone (DILAUDID) injection 0.5 mg 0.5 mg, Intravenous, EVERY 4 HOURS NEEDED, Starting on Thu03/11/23 at 1401, Until Misty 03/12/23 at 1652, Other, Increase in reported pain to moderate or severe between available doses of PO oxycodone, Post-op/Post-Proc oxyCODONE (ROXICODONE) oral solution 10 mg(Linked Group 2) 10 mg, Oral, EVERY 4 HOURS NEEDED, Starting on Thu03/11/23 at 1401, Until Misty 03/12/23 at 1652, Severe Pain, Post-op/Post-Proc 203 (See Alternative - Provider: Hilda Ho RN) oxyCODONE (ROXICODONE) oral solution 5 mg(Linked Group 2) 5 mg, Oral, EVERY 4 HOURS NEEDED, Starting on Thu03/11/23 at 1401, Until Misty 03/12/23 at 1652, Moderate Pain, Post-op/Post-Proc 2038 (Given - Provider: Hilda Ho RN) Promethazine (PHENERGAN) 12.5 mg in Sodium chloride 0.9%, with overfill 60.5 mL (total volume) IVPB 12.5 mg, Intravenous, at 121-242 mL/hr, Administer over 15-30 Minutes, EVERY 6 HOURS NEEDED, Starting on Thu03/11/23 at 1401, Until Misty 03/12/23 at 1652, Other, Nausea/Vomiting (2nd Line), Extravasation Risk, Post-op/Post-Proc 1740 ($$New Bag$$ - Provider : Cara Malcolm RN) Linked Groups Order Group 1: Scopolamine (TRANSDERM-SCOP) patch 1 patch (CANCELED)Jump to med 1 patch, Transdermal, ONCE, 1 dose, On Thu03/11/23 at 1030
Behind ear upon arrival to [facility].
Pre-op/Pre-Proc And VERIFY LINKED PATCH PLACEMENT (CANCELED) Other, EVERY 12 HOURS, First dose on Thu03/11/23 at 1030, Until Discontinued
Confirm continued adhesion of scopolamine 1.5 mg/72hr patch at documented site.
Group 2: oxyCODONE (ROXICODONE) oral solution 5 mgJump to med 5 mg, Oral, EVERY 4 HOURS NEEDED, Starting on Thu03/11/23 at 1401, Until Misty 03/12/23 at 1652, Moderate Pain, Post-op/Post-Proc Or oxyCODONE (ROXICODONE) oral solution 10 mgJump to med 10 mg, Oral, EVERY 4 HOURS NEEDED, Starting on Thu03/11/23 at 1401, Until Misty 03/12/23 at 1652, Severe Pain, Post-op/Post-Proc Goals (unrecognized section and content) Goals may be documented in a n alternate sectionGoals may be documented in an alternate sectionGoals may be documented in an alternate sectionGoals may be documented in an alternate sectionGoals may be documented in an alternate sectionGoals may be documented in an alternate sectionGoals may be documented in an alternate sectionGoals may be documented in an alternate section FOR RECORDS PERTAINING TO PATIENTS WHO ARE OR HAVE BEEN ENROLLED IN A CHEMICAL DEPENDENCY/SUBSTANCEABUSE PROGRAM, SOME INFORMATION MAY BE OMITTED. This clinical summary was aggregated from multiple sources. Caution should be exercised in using it in the provision of clinical care. This summary normalizes information from multiple sources, and as a consequence, information in this document may materially change the coding, format and clinical context of patient data. In addition, data may be omitted in some cases. CLINICAL DECISIONS SHOULD BE BASED ON THE PRIMARY CLINICAL RECORDS. Owned it [facility]. provides no warranty or guarantee of the accuracy or completeness of information in this document.
== END 2024-12-07 23:59 | disposition home or self-care (01) ==
LOC: MEDOUTP 11:30
PROVIDERS: Referring Provider Obstetrics & Gynecology; Visit Provider Obstetrics & Gynecology
DX: D64.9 Anemia, unspecified (principal)
CPT/HCPCS: 96365; 96366; J1756; A4216

== ENCOUNTER 2024-12-15 17:40 | Outpatient (CLI) | payer MEDICAID, SELFPAY ==
[2024-12-15 18:04] VITALS: BMI 37.3
--- NOTE | 2024-12-15 19:04 | OB.TRI.HP_ITS ---
HPI - General HPI Narrative AYE ZHANG, is a 29 F who presents nst due to finding of IUGR on scan today. bpp was 8/8 but the patient noted decreased movement at the time of the scan. MFM recommended nst. the patient states that she is now feeling movement Maternal Data Information DOMONIQUE Calculator Estimated Delivery Date Method Current WG Current Estimate 01/06/25 LMP (Certain) 36w 6d PFSH PFSH Medical History Hx of abnormal cervical Pap smear Asthma Home Medications ?Medication ?Instructions ?Recorded ?Last Taken ?Type multivit-min no.71-iron fum 28 1 cap PO DAILY 06/09/24 08/27/24 07:00 History mg-folate no.1 1 mg-dha 300 mg 1 cap capsule (PNV-[place]) blood sugar diagnostic (Accutrend #50 ea 10/26/24 Unkn own Rx Glucose test strips) blood-glucose meter (Accu-Chek #1 ea 10/26/24 Unknown Rx Guide Glucose Meter) lancets 23 gauge (Acti-[place] #100 ea 10/26/24 Unknown Rx Lancets) Allergy/AdvReac Type Severity Reaction Status Date / Time morphine Allergy Intermediate Hives Verified 12/15/24 18:02 Family History Grandmother Cancer Maternal- Pancreatic ca Grandmother Breast cancer, Onset Age: 40 Paternal Mother Cancer, Onset Age: 30 cervical Surgical History H/O dilation and curettage H/O gastric sleeve History of surgical removal of ganglion cyst S/P tendon repair Social History adopted: No household members: significant other and children number of children: 3 current occupational status: employed 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 [employer] pets and animals: No history of recent travel: No sexually active: Yes Smoking Status: Never smoker alcohol intake: never substance use type: does not use well-balanced diet: daily or most days caffeine: No eating out: 1-3 times/week during the past year weight has: decreased > 10 lbs what type of physical activity do you participate in: none lupis/hindu: None seatbelt use: sometimes do you feel safe at home: Yes additional social history: Boyfriend- Gretchen- Works at the [employer] History 4 Elective abortions Hx Para 3 Spontaneous abortions Hx # Term Pregnancies Ectopic pregnancies Hx # Pregnancies Multiple births # of living children 3 Past Pregnancies Del. Date Name GA/Weeks Outcome Route Bth Weight Infant Gen Labor Lgth Anesthesia Del Locatn Provider FOB 08/21/16 [place] 39 live - full term 9# Female epidural [facility] Dr. Aaron Almanza 05/05/19 [place] 39 live - full term 8#1oz Male none [facility] Dr. Castillo Almanza 06/06/20 [place] 38 live - full term 9#6oz Male epidural [facility] Dr. Castillo Almanza Delivery Date: 05/05/19 Last Updated by: Christy Diaz shoulder dystocia Visit Details Expected Delivery Route/Plan Labor Preferences- CB/BF classes: no labor support person: Gretchen labor intervention preferences: [] pain management options preferred: epidural cut cord/dad catch: cord : yes PP control planned: [] discussed possible routes of delivery and associated risks: [] special requests: [] Plans Covid status: [] Flu vaccine: [] Tdap vaccine: given Rhogam: NA LARC form signed: yes Problem list reviewed and updated with the most current plan of care details and appropriate orders placed. Relevant counseling for the gestational age provided. Continue routine care and follow up unless otherwise noted in visit notes/problem list details OB Flowsheet Initial Weight: 203 lb Date -?-?-?-?-?-?-?-?-?-?-?-?- EGA Weight BP Urine Prot -?-?-?-?-?-?-?-?-?-?-?-?- Glucose FHR FuHt Pres Dilation -?-?-?-?-?-?-?-?-?-?-?-?- Effaced St Visit Note 06/09/24 -?-?-?-?-?-?-?-?-?-?-?-?- 9w 6d 203 lb (+0 oz) 111/73 -?-?-?-?-?-?-?-?-?-?-?-?- 175 -?-?-?-?-?-?-?-?-?-?-?-?- KW- CRL cons wit h dates. declines NIPT. on Metoprolol for elevated HR-sees cardiology PRN. 07/11/24 -?-?-?-?-?-?-?-?-?-?-?-?- 14w 3d 203 lb (+0 oz) 97/63 Negative -?-?-?-?-?-?-?-?-?-?-?-?- Negative 160 -?-?-?-?-?-?-?-?-?-?-?-?- JV- pt still nee ds new ob labs. states got them at Dr. Walker's office before she came to us. Has h/o shoulder dystocia so will need a hga1c. she will sign another ror form and if do not get it by next visit will need to do all labs again. no other complaints. declines nipt. anatomy scan ordered. 08/04/24 -?-?-?-?-?-?-?-?-?-?-?-?- 17w 6d 208 lb (+5 lb) 95/50 Negative -?-?-?-?-?-?-?-?-?-?-?-?- Negative 150 -?-?-?-?-?-?-?-?-?-?-?-?- SM- no vb lof go od fm no reuglar ctx SM- no vb no reuglar ctx 08/31/24 -?-?-?-?-?-?-?-?-?-?-?-?- 21w 5d 214 lb 4 oz (+11 lb 4 oz) 102/64 Negative -?-?-?-?-?-?-?-?-?-?-?-?- Negative 160 -?-?-?-?-?-?-?-?-?-?-?-?- -Seen WP 08/29 for vag bleeding. Still with some brown discharge. No cram ping. Good FM. Cervix was friable on 08/29:cultures still pending. Low lying placenta-US sched at 28 wk. Pelvic rest. Reviewed bleeding precautions 09/28/24 -?-?-?-?-?-?-?-?-?-?-?-?- 25w 5d 223 lb (+20 lb) 103/69 -?-?-?-?-?-?-?-?-?-?-?-?- 150 -?-?-?-?-?-?-?-?-?-?-?-?- Sm- no vb lof go od fm no regular ctx 10/26/24 -?-?-?-?-?-?-?-?-?-?-?-?- 29w 5d 225 lb 4 oz (+22 lb 4 oz) 109/75 Negative -?-?-?-?-?-?-?-?-?-?-?-?- Negative 153 31 -?-?-?-?-?-?-?-?-?-?-?-?- JV- still spotti ng after intercourse. no loss of fluid or dec fm. recommemd refrain from sex, keep MFM scan at 32 weeks. SHe is unable to hold down iron. b12 and iron studies ordered for h/o bariatric surgery. checking fasting glucose levels for next couple of weeks as unable to do glucola. JV- still spotting after int ercourse. no loss of fluid or dec fm. recommemd refrain from sex, keep MFM scan at 32 weeks. SHe is unable to hold down iron. b12 and iron studies ordered for h/o bariatric surgery. checking fasting glucose levels for next couple of weeks as unable to do glucola. tdap today 11/10/24 -?-?-?-?-?-?-?-?-?-?-?-?- 31w 6d 225 lb 4 oz (+22 lb 4 oz) 105/68 Trace -?-?-?-?-?-?-?-?-?-?-?-?- Negative 150 32 -?-?-?-?-?-?-?-?-?-?-?-?- kw- no vb/lof/ct x. good fm. has scan next week. LARC today 11/24/24 -?-?-?-?-?-?-?-?--?-?-?-?- 33w 6d 230 lb 4 oz (+27 lb 4 oz) 105/66 Negative -?-?-?-?-?-?-?-?-?-?-?-?- Negative 140 34 -?-?-?-?-?-?-?-?-?-?-?-?- SM- no vb lof go od fm another venofer infusion today 12/07/24 -?-?-?-?-?-?-?-?-?-?-?-?- 35w 5d 232 lb 8 oz (+29 lb 8 oz) 116/72 Negative -?-?-?-?-?-?-?-?-?-?-?-?- Negative 133 36 -?-?-?-?-?-?-?-?-?-?-?-?- MH-No VB, LOF. G ood FM. completed 3rd venofer today. No CTX 12/15/24 -?-?-?-?-?-?-?-?-?-?-?-?- 36w 6d 231 lb 7.766 oz (+28 lb 7.766 oz) -?-?-?-?-?-?-?-?-?-?-?-?- 130 Cephalic 3 -?-?-?-?-?-?-?-?-?--?-?-?- 40 -3 JV- ob tri age. see note. gbs collected in triage ROS Constitutional Constitutional: Reports systems reviewed and no addt'l complaints, except as documented Gastrointestinal Gastrointestinal: Denies bloating, constipation, cramping, diarrhea, nausea or vomiting Genitourinary Genitourinary: Reports other Details: Denies vaginal odor, vaginal bleeding, or vaginal discharge ; Denies difficulty urinating or flank pain Physical Exam HEENT normocephalic Resp normal respiratory effort and normal air movement no CVA tenderness Extremity normal to inspection General Extremity: edema bilateral (trace ) NST FHR Rate Baby A Baseline: 130 Variability:: Moderate Accelerations:: 15 x 15 Decelerations:: None NST Reactive:: Yes FHR Category:: Category I Assessment & Plan (1) IUGR (intrauterine growth restriction) affecting care of mother: COMMENT: ac less than 10th. plan twice weekly testing. deliver 39 weeks unless abnormal dopplers. (2) Anemia affecting : QUALIFIERS: Trimester: third trimester Qualified Code(s): O99.013 - Anemia complicating , third trimester COMMENT: iv venofer (3) Exposure to parvovirus: (4) History of bariatric surgery: COMMENT: sleeve 03/23. Growth scan every 4 weeks. (5) Anemia in preg-unspec: QUALIFIERS: Trimester: second trimester Qualified Code(s): O99.012 - Anemia complicating , second trimester COMMENT: add fe (6) Tachycardia: COMMENT: sees cardiology. on Metoprolol (7) Obesity affecting : QUALIFIERS: Trimester: second trimester Obesity type affecting : unspecified obesity Qualified Code(s): O99.212 - Obesity complicating , second trimester COMMENT: HgbA1c (8) Supervision of high-risk : QUALIFIERS: Trimester: second trimester Qualified Code(s): O09.92 - Supervision of high risk , unspecified, second trimester COMMENT: PRR, , DOMONIQUE 01/06/25, PC Rolando Vasques Rowan BF Jyothi (9) : QUALIFIERS: Weeks of gestation: 35 weeks Qualified Code(s): Z3A.35 - 35 weeks gestation of COMMENT: declined NIPT & Carrier testing, nl anatomy (10) H/O shoulder dystocia in prior , currently : COMMENT: 2nd 8 lbs, had other bigger babies. that was an IOL. mild PLAN: Plan reactive nst. gbs and cervical exam performed. Charges/Coding Multi Select Codes Visit Charges Office Visit/Consults: 76062 OV L3 Est 20min Urinary/Genital Urinary/Genital CPT Codes: 65317-16 non-stress test Interp
== END 2024-12-15 18:30 | disposition home or self-care (01) ==
LOC: WPOUT 17:45 → WP 17:46
PROVIDERS: Referring Provider Obstetrics & Gynecology; Visit Provider Obstetrics & Gynecology
DX: O36.5930 Maternal care for other known or suspected poor fetal growth, third trimester, not applicable or unspecified (principal); O36.8130 Decreased fetal movements, third trimester, not applicable or unspecified; O99.013 Anemia complicating pregnancy, third trimester; O99.891 Other specified diseases and conditions complicating pregnancy; R00.0 Tachycardia, unspecified; O99.213 Obesity complicating pregnancy, third trimester; Z3A.35 35 weeks gestation of pregnancy; Z98.84 Bariatric surgery status; Z87.59 Personal history of other complications of pregnancy, childbirth and the puerperium
CPT/HCPCS: 59025; 59050; 87081; 87653; 99221; G0378

== ENCOUNTER 2024-12-20 14:40 | Inpatient (IN) | payer MEDICAID, SELFPAY ==
[2024-12-20] VITALS (41 sets, daily range): BP systolic 97–138; BP diastolic 49–80; PULSE 69–102; RESP 14–17; TEMP 36.1–37.2; O2SAT 91–100; BMI 37.3; BMI 37.4
[2024-12-20 14:33] LABS: ROM Internal Control Test YES-OK TO RESULT pt. (Internal QC); Record Kit Lot#, ROM+ K3358
[2024-12-20 14:44] LABS: ROM Patient Test Negative (Negative)
[2024-12-20] MEDS: Lactated Ringers 1,000 ML 50 ML IV (15:35)
[2024-12-20] MEDS: Oxytocin 15 Units/NS 250ml 15 UNITS/250 ML IV.SOLN 2 UNITS IV (15:55)
[2024-12-20 16:03] LABS: Hematocrit 33.2 % (37-47); Hemoglobin 10.8 g/dL (12.0-15.0); Immature Granulocytes Count 0.030 X10^3/uL (0.0-0.0); Mean Corp Hgb Conc 32.5 g/dL (32-36); Mean Corpuscular Volume 88.5 fL (81-99); Mean Platelet Vol. 10.6 fl (6.2-12.0); NRBC Flagged by Analyzer 0 % (0-5); Platelet Count 209 K/mm3 (150-450); RBC Distribution Width CV 18.0 % (11.6-14.6); RBC Distribution Width SD 57.7 fl (35.1-43.9); Red Blood Count 3.75 M/mm3 (4.2-5.4); White Blood Count 9.4 K/mm3 (4.4-11.0)
[2024-12-20 17:39] LABS: Syphilis Antibodies Nonreactive (Nonreactive)
[2024-12-20] MEDS: Lactated Ringers 1,000 ML 999 ML IV (19:55)
[2024-12-20] MEDS: fentaNYL-bupivacaine (epidural) 100 ML BAG EPIDURAL (20:53)
--- OUTSIDE RECORDS SUMMARY | 2024-12-20 21:09 | XMS RPT_ITS | CCD ---
Author Organization [facility] [place] [facility] Team Providers Care Tensile Tester Name Role Phone Desoto, Rosalba Unavailable Unavailable Flint, Lesvia D Unavailable Unavailable Oberhauser, Sierra Unavailable [...] Primary Care Provider Oberhauser, Sierra L Unavailable [phone] Prosper Renner Unavailable Unavailable Jacquelyn Walker Unavailable Leoncio Jean Baptiste Unavailable Unavailable Vi Ramachandran Unavailable Unavailable Oberhauser DO, Sierra Primary Care Provider [phone] OBERHAUSER, SIERRA Primary Care Unavailable ANTHONY YANEZ [...] DO, Sierra L Primary Care Provider [phone] Oberhauser DO, Sierra L Unavailable [phone] Oberhauser DO, Sierra Primary Care Provider [phone] Oberhauser DO, Sierra Primary Care Provider [phone] Danielle, Dr. Sierra De León Primary Care Unava ilable JACQUELYN WALKER Referring Unavailable JACQUELYN WALKER Attending Unavailable Jimena Gracia Referring Unavailabl lavonne FUENTES, LONGSHORE EQUIPMENT OPERATOR, DNP ABDIAZIZ JUAN Attending Un available Oberhauser, Dr. Sierra De León Primary Care Unava ilable MD LEONCIO JEAN BAPTISTE Referring Unavailable MD LEONCIO JEAN BAPTISTE Attending Unavailable Oberhauser, Dr. Sierra De León Primary Care Unava ilable Oberhauser, Dr. Sierra De León Primary Care Unava ilable JACQUELYN WALKER Attending Unavailable Oberhauser DO, Sierra L Unavailable [phone] Oberhauser DO, Sierra Primary Care Provider [phone] Unavailable Primary Care Provider Unavailabl e JIMENA GRACIA Attending Unavailable OBERHAUSER, SIERRA Primary Care Unavailable JIMENA GRACIA Referring Unavailable JIMENA GRACIA Attending Unavailable OBERHAUSER, SIERRA Primary Care Unavailable JIMENA GRACIA Referring Unavailable OBERHAUSER, SIERRA Primary Care Unavailable SUZANNASLYI Erwin Attending Unavailable OBERHAUSER, SIERRA Referring Unavailable JIMENA GRACIA Attending Unavailable OBERHAUSER, SIERRA Primary Care Unavailable JIMENA GRACIA Referring Unavailable JIMENA GRACIA Attending Unavailable OBERHAUSER, SEIRRA Primary Care Unavailable JIMENA GRACIA Referring Unavailable [...] Primary Care Unavailable JIMENA GRACIA Referring Unavailable JIMNEA GRACIA Admitting Unavailable OBERHAUSER, SIERRA Primary Care [...] Provider Unavailable Jocelyn Malcolm CNM Attending Provider [phone] Dr. Adelaida Burnett DO Attending Provider Dr. Isabel Luz MD Attending Provider [phone] NOT, DEFINED Primary Care Provider UnavailJocelyn Hunter CNM Referring Provider 1() Care Physician, No Primary Primary Care Provider Unavailable Dr. Isabel Luz MD Referring Provider [phone] Jocelyn Malcolm CNM Attending Provider 1() Dr. Isabel Luz MD Other Provider 1( ) Veena SHAFFER-C, Luisa Attending Provider 1() Care Physician, No Primary Referring Provider Un available Dr. Adelaida Burnett DO Referring Provider Dr. Adelaida Burnett DO Attending Provider Dr. Isabel Luz MD Attending Provider Jocelyn Malcolm CNM Attending Provider 1() Dr. Adelaida Burnett DO Other Provider [phone] Care Physician, No Primary Referring Unava ilable Care Physician, No Primary Primary Care Unava ilable Jocelyn Malcolm Attending Unavailable Jocelyn Malcolm Attending Unavailable Adelaida Burnett Attending Unavailabl e Care Physician, No Primary Referring Unava ilable Vande Velde, Adelaida Attending Unavailabl e Care Physician, No Primary Primary Care Unava ilable Vande Velde, Adelaida Attending Unavailabl e Vande Velde, Adelaida Referring Unavailabl e Care Physician, No Primary Primary Care Unava ilable Care Physician, No Primary Primary Care Unava ilable Vande Velde, Adelaida Attending Unavailabl e Vande Velde, Adelaida Referring Unavailabl e Care Physician, No Primary Primary Care Unava ilable MarcanthonyIsabel Referring Unavailable Marcanthony, Isabel Attending Unavailable Vande Velde, Adelaida Attending Unavailabl e Vande Velde, Adelaida Referring Unavailabl e Care Physician, No Primary Primary Care Unava ilable Care Physician, No Primary Primary Care Unava ilable Marcanthony, Isabel Attending Unavailable Marcanthony, Isabel Referring Unavailable Care Physician, No Primary Primary Care Unava ilable Marcanthnegro, Isabel Attending Unavailable Marcanthony, Isabel Referring Unavailable Care Physician, No Primary Referring Unava ilable Veena TIRE DEBEADERLuisa Attending Unavailable Care Physician, No Primary Primary Care Unava ilable Kimberlye Velluda, Adelaida Attending Unavailabl e Vande Velde, Adelaida Consulting Unavailabl e Vande Velde, Adelaida Referring Unavailabl e Care Physician, No Primary Primary Care Unava ilable Care Physician, No Primary Primary Care Unava ilable Marcanthnegro, Isabel Attending Unavailable Marcanthony, Isabel Consulting Unavailable Marcanthony, Isabel Referring Unavailable Rosi Carr Attending Unavailable Care Physician, No Primary Referring Unava ilable Jocelyn Malcolm Attending Unavailable Care Physician, No Primary Primary Care Unava ilable Care Physician, No Primary Referring Unava ilable Kimberlye Velluda, Adelaida Attending Unavailabl e Care Physician, No Primary Primary Care Unava ilable Marcronald, Isabel Attending Unavailable Care Physician, No Primary Referring Unava ilable Veena TIRE DEBEADERLuisa Attending Unavailable Care Physician, No Primary Primary Care Unava ilable Care Physician, No Primary Referring Unava ilable Care Physician, No Primary Primary Care Unava ilable Marcronald, Isabel Attending Unavailable Vande Velde, Adelaida Referring Unavailabl e Vande Velde, Adelaida Attending Unavailabl e Care Physician, No Primary Primary Care Unava ilable Adelaida Burnett Attending Unavailsuad e Adelaida Burnett Referring Unavailabl e Care Physician, No Primary Primary Care Unava ilable Jocelyn Malcolm Attending Unavailable NOT, DEFINED Primary Care Unavailable Jocelyn Malcolm Referring Unavailable Jocelyn Malcolm Attending Unavailable Care Physician, No Primary Referring Unava ilable Care Physician, No Primary Primary Care Unava ilable Isabel Luz Attending Unavailable ADELAIDA DENNY Referring Unavailab le ADELAIDA DENNY Attending Unavailab le NO PRIMARY CARE, Primary Care Unavailable ADELAIDA DENNY Referring Unavailab le ADELAIDA DENNY Attending Unavailab le NO PRIMARY CARE, Primary Care Unavailable SAUL CHANCE Attending Unavailable ADELAIDA DENNY Referring Unavailab le NO PRIMARY CARE, Primary Care Unavailable JERE MCCLELLAN Attending Unavailable ADELAIDA DENNY Referring Unavailab le NO PRIMARY CARE, Primary Care Unavailable ADELAIDA DENNY Referring Unavailab le ALEX ELIZONDO Attending Unavailable NO PRIMARY CARE, Primary Care Unavailable Allergies Allergy Classification Reported Allergen(s) Allergy Type Date of Onset Reaction(s) Facility (20 sources) Morphine; Translations: [morphine] Drug Allergy 2 Hives, Unknown [facility] (2 sources) bleach Wheezing [facility] Comment on above: bleach (1 source) Morphine Drug Allergy 5 [facility] Repository Medications Current Medications Medication [...] Twice daily. 0 02/18/2023 Active Blood-Glucose Meter (Accu-Ch ek Guide Glucose Meter) misc (10 sources) Start: 10-26-2024 Blood-Glucose Meter (Accu-Chek Guide Glucose Meter) misc Active 0 .Route 1 0 October 26, 2024 12:00am As directed check sugar levels (fasting) in the morning Start: 10-26-2024 Blood-Glucose Meter (Accu-Chek Guide Glucose Meter) misc Active 0 .Route 1 October 26, 2024 12:00am As directed check sugar levels (fasting) in the morning cetirizine hydrochloride 10 mg oral tablet (4 [...] Oxide (2 sources) take 1 tablet by anne-marie th once daily magnesium oxide ; 1 tab(s) orally once a day Quantity: 0 Refills: 0 Ordered: 07-Mar-2019 Adelaida Bell Status: Discontinued Generic Substitution Allowed Misc. Devices Misc (6 sources) Mv-Mins 39-Yuxx-Hpska No.1-D catalan (Pnv-[place]) 28-1-300 mg capsule (12 sources) Start: 06-09-2024 Mv-Mins 71-Iro n-Folic No.1-Dha (Pnv-[place]) 28-1-300 mg capsule Active 1 NMA PO DAILY June 09, 2024 1:00am Start: 06-09-2024 Mv-Mins 71-Iro n-Folic No.1-Dha (Pnv-[place]) 28-1-300 mg capsule Active NMA PO June [...] Katharine Downey Status: Discontinued Generic Substitution Allowed [id number] 200 actuat albuterol 0.09 mg/actuat metered dose inhaler (17 sources) beta2-Adrenergic Agonist Start: 06-09-2024 End: 08-29-2024 [...] 2 TABLET Daily Quantity: 60 Refills: 11 Lexii Thomas DOtt Start : 07-Nov-2019 Active take 1 tablet by mouth once joni y Aspirin Low Dose 81 mg oral tablet, chewable ; 1 tab(s) orally once a day Quantity: 0 Refills: 0 Ordered: 07-Mar-2019 Adelaida Bell Status: Discontinued Generic Substitution Allowed 24 hr buPROPion hydrochloride 300 mg extended release oral tablet (20 sources) Aminoketone Start: 06-09-2024 End: 12-15-2024 take 1 tablet by mouth once daily in the morning Bupropion Hcl (Wellbutrin Xl) 300 mg tablet extended release 24 hr Discontinued 300 mg PO EVERY MORNING June 09, 2024 1:00am December 15, 2024 6:04pm Start: 09-24-2023 take 1 tablet by anne-marie [...] Ordered: 23-Nov-2021 Katina Rouse Generic Substitution Allowed busPIRone hydrochloride 10 mg [...] days Quantity: 10 Refills: 0 Ordered: 04-Nov-2019 Chris Colin I Start: 04-Nov-2019 End: 08-Nov-2019 Status: Other [...] NEEDED. Quantity: 30 Refills: 0 Ordered: 28-Feb-2021 Valentino Monroy PA-C [...] DVT/PE prophylaxis, Post-op/Post-Proc 21 day ethinyl estradiol 0.758839 mg/hr / etonogestrel 0.005 mg/hr vaginal ring [...] Intravenous, EVERY 4 HOURS NEEDED, Starting on 03/11/23 at 1401, Until Misty 03/12/23 at 1652, [...] 1430, Until Misty 03/12/23 at 1652, Post-op/Post-Proc 24 hr metoprolol succinate 50 mg extended release oral tablet (20 sources) beta-Adrenergic Katelyn Start: 06-09-2024 End: 12-15-2024 take 1 tablet by mouth once daily Metoprolol Succinate 50 mg tablet extended release 24 hr Discontinued 50 mg PO daily June 09, 2024 1:00am December 15, 2024 6:04pm Start: 11-26-2023 take 1 tablet by anne-marie [...] once daily. 90 tablet 3 11/26/2023 Active metroNIDAZOLE 500 mg oral tablet (2 sources) [...] hours Quantity: 12 Refills: 0 Ordered: 23-Nov-2021 Michelle Vasquez Start: 23-Nov-2021 Generic Substitution Allowed oxyCODONE [...] Stress Ulcer Prophylaxis, Post-op/Post-Proc polyethylene glycol 3350 75664 mg powder for oral solution (4 sources) [...] Risk Post-op/Post-Proc terconazole 4 mg/ml vaginal cream (10 sources) Azole Antifungal Start: 09-02-2024 End: 09-09-2024 Terconazole 0.4 % cream Discontinued 1 NMA VAGINAL AT BEDTIME 45 7 0 September 02, 2024 12:00am September 08, 2024 12:00am September 09, 2024 12:09am tiZANidine 4 mg oral tablet (20 sources) Central alpha-2 Adrenergic Agonist Start: 01-31-2022 take 2 tablets by mouth three times daily tiZANidine HCl - 4 MG Oral Tablet Take 2 tablets three times a day Quantity: 168 Refills: 1 Ordered: 05-Mar-2022 Danielle Kash REALn Start : 31-Jan-2022 Active Start: 09-03-2021 tiZANidine 4 M G tablet Take 1 tablet by mouth as needed. 0 09/03/2021 Active take 1 capsule by mo [facility] once daily tiZANidine (Zanaflex) 4 mg capsule Take 1 capsule (4 mg) by mouth once daily. Active tiZANidine HCl - 4 MG Oral Tablet Quantity: 0 Refills: 0 Ordered: 05-Dec-2021 DO Active take 1 tablet by anne-marie th once daily as needed tiZANidine 4 mg [...] PAIN. Quantity: 24 Refills: 0 Ordered: 28-Feb-2021 Porfirio MORALES Valentino Start : 28-Feb-2021 End : 23-May-2021 Complete [...] add fe iv venofer Other complications of (2 sources) Anemia complicating , second trimester; Translations: [Anemia complicating , second trimester] Onset: 5 Chronic Other complications of (2 sources) Anemia complicating , third trimester; Translations: [Anemia complicating , third trimester] Onset: 5 Chronic Other complications of (2 sources) Obesity complicating , second trimester; Translations: [Obesity [...] DOMONIQUE 5, PC Rolando Vasques Rowan BF Gretchen Other complications of (20 sources) History of shoulder dystocia; Translations: [Supervision of with other poor reproductive or obstetric history, unspecified trimester] 06-09-2024 Episodic Comment on above: 2nd 2nd 8 lbs, had other bigger babies. that was an IOL. mild Other complications of (20 sources) Spotting per vagina in ; Translations: [Spotting complicating , unspecified trimester] 09-28-2024 Episodic Other complications of (4 sources) Poor growth affecting management; Translations: [Maternal care for other known or suspected poor growth, unspecified trimester, not applicable or unspecified] 12-15-2024 Episodic Comment on above: ac less than 10th. p ananda twice weekly testing. deliver 39 weeks unless abnormal dopplers. Other complications of (2 sources) Maternal care for other known or suspected poor growth, unspecified trimester, not applicable or unspecified; Translations: [Maternal care for other known or suspected poor growth, unspecified trimester, not applicable or unspecified] Onset: 5 Episodic Other complications of (2 sources) Supervision of high risk , unspecified, second trimester; Translations: [Supervision of high risk , unspecified, second trimester] Onset: 5 Episodic Other complications of (2 sources) Supervision of with other poor reproductive or obstetric history, unspecified trimester; Translations: [Supervision of with other poor reproductive or obstetric history, unspecified trimester] Onset: 5 Episodic Other connective tissue [...] scan every 4 weeks. Other gastrointestinal disorders (2 sources) Bariatric surgery status; Translations: [Bariatric surgery status] [...] Pain Onset: 2 Episodic Residual codes; unclassified (18 sources) History of sleeve gastrectomy; Translations: [Acquired absence of stomach [part of]] Onset: 3 03-12-2023 Episodic Comment on above: 03/2023 Residual codes; unclassified (4 sources) Less than 8 weeks gestation of ; Translations: [Less than 8 weeks gestation of ([facility])] Onset: 4 Episodic Residual codes; unclassified (20 sources) Family history of breast cancer; Translations: [Family history of malignant neoplasm of breast] 06-09-2024 Episodic Comment on above: Paternal Grandmother Residual codes; unclassified (20 sources) Family history of malignant neoplasm of cervix uteri; Translations: [Family history of malignant neoplasm of other genital organs] 06-09-2024 Episodic Comment on above: Mother at 30yo-hyste rectomy Residual codes; unclassified (20 sources) Gestation period, 21 weeks; Translations: [21 weeks gestation of ] 09-28-2024 Episodic Residual codes; unclassified (2 sources) 35 weeks gestation of ; Translations: [35 weeks gestation of ] Onset: 5 Episodic Residual codes; unclassified (1 source) 31 [...] [Urinary tract infection, site not specified] Onset: 4 Episodic Viral infection (20 sources) Other specified [...] unspecified, unspecified trimester] Onset: 08-31-2024 Episodic Other complications of (1 source) Spotting complicating , unspecified trimester; Translations: [Spotting complicating , unspecified trimester] Onset: 09-06-2024 Episodic Other complications of (1 source) Spotting complicating , second trimester; Translations: [Spotting complicating , second trimester] Onset: 09-06-2024 Episodic Other non-traumatic joint disorders (19 sources) [...] ] Episodic Residual codes; unclassified (1 source) 21 weeks gestation of ; Translations: [21 weeks gestation of ] Onset: 09-06-2024 Episodic Residual codes; unclassified (1 source) Family [...] Test Name Value Interpretation Reference Range Facility Telecommunications Field Technician Office Visit Reporton 12-16-2024 Telecommunications Field Technician Office Visit Report [facility]'s [address], [address] [place] [address] OFFICE VISIT Date of Service: 12/16/24 MR#: [id number] Acct: [id number] Name: AYE WEIR Rep #: [id number] : 1995 Provider: Dr. Adelaida Moya DO Age/Sex: 29/F Location: [facility] Status: Signed Intake Vital Signs 11/10/24 09:55 12/15/24 18:04 12/16/24 09:22 12/16/24 09:22 Height 5 ft 6 in 5 ft 6 in 5 ft 6 in 5 ft 6 in Weight: 232 lb 4 oz BMI 37.5 BP 119/72 Intake Visit Reasons: 37wk ob Chief Complaint: 37wk OB Sugar Coating Hand Required: No Is patient in pain?: No Allergies morphine Allergy (Intermediate, Verified 12/16/24 09:20) Hives Medications ???Medication ???Instructions ???Recorded ???Confirmed ???Type multivit-min no.71-iron fum 28 1 cap PO DAILY 06/09/24 12/16/24 H istory mg-folate no.1 1 mg-dha 300 mg capsule (PNV-[place]) blood sugar diagnostic (Accutrend #50 ea 10/26/24 12/16/24 Rx Glucose test strips) blood-glucose meter (Accu-Chek #1 ea 10/26/24 12/16/24 Rx Guide Glucose Meter) lancets 23 gauge (Acti-Montrell #100 ea 10/26/24 12/16/24 Rx Lancets) Last Menstrual Period: 04/01/24 : No PFSH PFSH Medical History Hx [...] occupational status: employed 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 pets and animals: No history of recent travel: No sexually active: Yes Smoking Status: Never smoker alcohol intake: never substance use type: does not use well-balanced diet: daily or most days caffeine: No eating out: 1-3 times/week during the past year weight has: decreased > 10 lbs what type of physical activity do you participate in: none lupis/anabaptist: None seatbelt use: sometimes do you feel safe at home: Yes additional social history: Boyfriend- Gretchen- Works at the [employer] History 4 Elective abortions Hx Para 3 Spontaneous abortions Hx # Term Pregnancies Ectopic pregnancies Hx # Pregnancies Multiple births # of living children 3 Past Pregnancies Del. Date Name GA/Weeks Outcome Route Bth Weight Infant Gen Labor Lgth Anesthesia Del Locatn Provider FOB 08/21/16 Lay[place] 39 live - full term 9# Female epidural S [facility] Dr. Aaron Almanza 05/05/19 [place] 39 live - full term 8#1oz Male [facility] emilia Almanza 06/06/20 Melissa 38 live - full term 9#6oz Male epidural [facility] Dr. Castillo Almanza Delivery Date: 05/05/19 Last Updated by: Christy Diaz shoulder dystocia HPI 37wk ob Details: AYE WEIR is a 29 year old who presents for routine OB visit. OB Visit DOMONIQUE Calculator Estimated Delivery Date Method Current WG Current Estimate 01/06/25 LMP (Certain) 37w 0d Expected Delivery Route/Plan Labor Preferences- CB/BF classes: no labor support person: Gretchen labor intervention preferences: [] pain management options preferred: epidural cut cord/dad catch: cord : yes PP control planned: [] discussed possible routes of delivery and associated risks: [] special requests: [] Specific Issue/Plans Covid status: [] Flu vaccine: [] Tdap vaccine: given Rhogam: NA LARC form signed: yes Problem list reviewed and updated with the [...] Metoprolol for elevated HR-sees cardiology PRN. 07/11/24 (more content not included)... Normal [facility] M8200.0100on 12-15-2024 M8200.0100 Negative Normal [facility] Comment on above: Performed By: #### M 8200.0100 #### [facility] [address] [facility] [address] [place], [address] OB Triage Physician Noteon 0 12-15-2024 OB Triage Physician Note [facility] Medical Records Department [address] [place] [address] OB Triage Physician Note 12/15/24 1904 MR#: [id number] Acct: [id number] Name: AYE WEIR Rep #: [id number] : 1995 29 From: Adelaida Burnett DO PCP: Care Physician,No Primary Status:DEP CLI Y Location: [facility] HPI - General HPI Narrative AYE WEIR, is a 29 F who presents nst due to finding of IUGR on scan today. bpp was 8/8 but the patient noted decreased movement at the time of the scan. MFM recommended nst. the patient states that she is now feeling movement Maternal Data Information DOMONIQUE Calculator Estimated Delivery Date Method Current WG Current Estimate 01/06/25 LMP (Certain) 36w 6d PFSH PFSH Medical History Hx of abnormal cervical Pap smear Asthma Home Medications ???Medication ???Instructions ???Recorded ???Last Taken ???Type multivit-min no.71-iron fum 28 1 cap PO DAILY 06/09/24 08/27/24 0 7:00 History mg-folate no.1 1 mg-dha 300 mg 1 cap capsule (PNV-[place]) blood sugar diagnostic (Accutrend #50 ea 10/26/24 Unknown Rx Glucose test strips) blood-glucose meter (Accu-Chek #1 ea 10/26/24 Unknown Rx Guide Glucose Meter) lancets 23 gauge (Acti-Montrell #100 ea 10/26/24 Unknown Rx Lancets) Allergy/AdvReac Type Severity Reaction Status Date / Time morphine Allergy Intermediate Hives Verified 12/15/24 18:02 Family History Grandmother Cancer Maternal- Pancreatic ca Grandmother Breast cancer, Onset Age: 40 Paternal Mother Cancer, Onset Age: 30 cervical Surgical History H/O dilation and curettage H/O gastric sleeve History of surgical removal of ganglion cyst S/P tendon repair Social History adopted: No household members: significant other and children number of children: 3 current occupational status: employed 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[facility] [employer] pets and animals: No history of recent travel: No sexually active: Yes Smoking Status: Never smoker alcohol intake: never substance use type: does not use well-balanced diet: daily or most days caffeine: No eating out: 1-3 times/week during the past year weight has: decreased > 10 lbs what type of physical activity do you participate in: none lupis/anabaptist: None seatbelt use: sometimes do you feel safe at home: Yes additional social history: Boyfriend- Gretchen- Works at the [employer] History 4 Elective abortions Hx Para 3 Spontaneous abortions Hx # Term Pregnancies Ectopic pregnancies Hx # Pregnancies Multiple births # of living children 3 Past Pregnancies Del. Date Name GA/Weeks Outcome Route Bth Weight Infant Gen Labor Lgth Anesthesia Del Locatn Provider FOB 08/21/16 [place] 39 live - full term 9# Female epidural S [facility] Dr. Aaron Almanza 05/05/19 [place] 39 live - full term 8#1oz Male [facility] emilia Almanza 06/06/20 Melissa 38 live - full term 9#6oz Male epidural [facility] Dr. Castillo Almanza Delivery Date: 05/05/19 Last Updated by: Christy Diaz shoulder dystocia Visit Details Expected Delivery Route/Plan Labor Preferences- CB/BF classes: no labor support person: Gretchen labor intervention preferences: [] pain management options preferred: epidural cut cord/dad catch: cord : yes PP control planned: [] discussed possible routes of delivery and associated risks: [] special requests: [] Plans Covid status: [] Flu vaccine: [] Tdap vaccine: given Rhogam: NA LARC form signed: yes Problem list reviewed and updated with the [...] 14w 3d 203 lb (+0 oz) 97/63 Negat (more content not included)... Normal [facility] - Chemistry and C hemistry - challengeOrdered By: Luisa Curiel on 12-07-2024 Glucose Ql (U) Negative [facility] - UrinalysisOrder ed By: Luisa Gladbrook on 12-07-2024 Protein Ql (U) Negative [facility] Telecommunications Field Technician Office Visit Reporton 12-07-2024 Telecommunications Field Technician Office Visit Report [facility]'s [address], [address] [place] [address] OFFICE VISIT Date of Service: 12/07/24 MR#: [id number] Acct: [id number] Name: AYE WEIR Rep #: [id number] : 1995 Provider: ZION maher Age/Sex: 29/F Location: [facility] Status: Signed Intake Vital Signs 11/10/24 09:55 12/07/24 11:36 12/07/24 14:06 Height 5 ft 6 in 5 ft 6 in 5 ft 6 in Weight: 232 lb 8 oz BMI 37.5 BP 116/72 Intake Visit Reasons: 36wk ob Chief Complaint: 36 Week OB Sugar Coating Hand Required: No Is patient in pain?: No Allergies morphine Allergy (Intermediate, Verified 12/07/24 14:06) Hives Medications ???Medication ???Instructions ???Recorded ???Confirmed ???Type bupropion HCl 300 mg 24 hr tablet, 300 mg PO QAM 06/09/24 12/07/24 History extended release (Wellbutrin XL) metoprolol succinate 50 mg 50 mg PO QDAY 06/09/24 12/07/24 Hi story tablet,extended release 24 hr multivit-min no.71-iron fum 28 1 cap PO DAILY 06/09/24 12/07/24 H istory mg-folate no.1 1 mg-dha 300 mg capsule (PNV-[place]) blood sugar diagnostic (Accutrend #50 ea 10/26/24 12/07/24 Rx Glucose test strips) blood-glucose meter (Accu-Chek #1 ea 10/26/24 12/07/24 Rx Guide Glucose Meter) lancets 23 gauge (Acti-Montrell #100 ea 10/26/24 12/07/24 Rx Lancets) Last Menstrual Period: 04/01/24 Zika: [...] occupational status: employed 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[facility] pets and animals: No history of recent travel: No sexually active: Yes Smoking Status: Never smoker alcohol intake: never substance use type: does not use well-balanced diet: daily or most days caffeine: No eating out: 1-3 times/week during the past year weight has: decreased > 10 lbs what type of physical activity do you participate in: none lupis/anabaptist: None seatbelt use: sometimes do you feel safe at home: Yes additional social history: Boyfriend- Gretchen- Works at the [employer] History 4 Elective abortions Hx Para 3 Spontaneous abortions Hx # Term Pregnancies Ectopic pregnancies Hx # Pregnancies Multiple births # of living children 3 Past Pregnancies Del. Date Name GA/Weeks Outcome Route Bth Weight Gen Labor Lgth Anesthesia Del Locatn Provider FOB 08/21/16 Layo 39 live - full term 9# Female epidural S [facility] Dr. Aaron Almanza 05/05/19 Rol[place] 39 live - [facility] Melissa 38 live - full term 9#6oz Male epidural [facility] Dr. Castillo Almanza Delivery Date: 05/05/19 Last Updated by: Christy Diaz shoulder dystocia HPI 36wk ob Details: AYE WEIR is a 29 year old who presents for routine OB visit. OB Visit DOMONIQEU Calculator Estimated Delivery Date Method Current WG Current Estimate 01/06/25 LMP (Certain) 35w 5d Expected Delivery Route/Plan Labor Preferences- CB/BF classes: no labor support person: Gretchen labor intervention preferences: [] pain management options preferred: epidural cut cord/dad catch: cord : yes PP control planned: [] discussed possible routes of delivery and associated risks: [] special requests: [] Specific Issue/Plans Covid status: [] Flu vaccine: [] Tdap vaccine: given Rhogam: NA LARC form signed: yes Problem list reviewed and updated with the [...] - Effaced St Visit Note 06/09/24 -???-???-???-???-???-??? -???-???-???-???-???- (more content not included)... Normal [facility] Laboratory - Chemistry and C hemistry - challengeOrdered By: Isabel Luz on 11-24-2024 Glucose Ql (U) Negative [facility] Laboratory - UrinalysisOrder ed By: Isabel Luz on 11-24-2024 Protein Ql (U) Negative [facility] Telecommunications Field Technician Office Visit Reporton 11-24-2024 Telecommunications Field Technician Office Visit Report [facility]'s [address], [address] [place] [address] OFFICE VISIT Date of Service: 11/24/24 MR#: [id number] Acct: [id number] Name: AYE WEIR Rep #: [id number] : 1995 Provider: Dr. 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[facility] pets and animals: No history of recent travel: No sexually active: Yes Smoking Status: Never smoker alcohol intake: never substance use type: does not use well-balanced diet: daily or most days caffeine: No eating out: 1-3 times/week during the past year weight has: decreased > 10 lbs what type of physical activity do you participate in: none lupis/anabaptist: None seatbelt use: sometimes do you feel safe at home: Yes additional social history: Boyfriend- Gretchen- Works at the [employer] History 4 Elective abortions Hx Para 3 Spontaneous abortions Hx # Term Pregnancies Ectopic pregnancies Hx # Pregnancies Multiple births # of living children 3 Past Pregnancies Del. Date Name GA/Weeks Outcome Route Bth Weight Infant Gen Labor Lgth Anesthesia Del Locatn Provider FOB 08/21/16 Layo 39 live - full term 9# Female epidural S [facility] Dr. Aaron Almanza 05/05/19 [place] 39 live - full term 8#1oz Male [facility] emilia Almanza 06/06/20 [place] 38 live - full term 9#6oz Male epidural [facility] Dr. Castillo Almanza Delivery Date: 05/05/19 Last Updated by: Christy Diaz shoulder dystocia HPI 34 WK OB Details: AYE WEIR is a 29 year old who presents for routine OB visit. OB Visit DOMONIQUE Calculator Estimated Delivery Date Method Current WG Current Estimate 08/08/25 LMP (Certain) 33w 6d Expected Delivery Route/Plan [...] oz) 111/73 (more content not included)... Normal [facility] Laboratory - Chemistry and C hemistry - challengeOrdered By: Jocelyn Malcolm on 11-10-2024 Glucose Ql (U) Negative [facility] Laboratory - UrinalysisOrder ed By: Jocelyn Malcolm on 11-10-2024 Protein Ql (U) Trace [facility] Telecommunications Field Technician Office Visit Reporton 11-10-2024 Telecommunications Field Technician Office Visit Report [facility]'s [address], [address] [place] [address] OFFICE VISIT Date of Service: 11/10/24 MR#: [id number] Acct: [id number] Name: AYE WEIR Rep #: [id number] : 1995 Provider: RICKY Trivedi ams Age/Sex: 29/F Location[place] [facility] Status: Signed Intake Vital Signs 06/09/24 11:31 10/26/24 09:55 11/10/24 09:55 Height 5 ft 6 in 5 ft 6 in 5 ft 6 in Weight: 225 lb 4 oz BMI 36.3 BP 105/68 Intake Visit Reasons: 32 WK OB Sugar Coating Hand Required: No Is patient in pain?: No [...] mg-folate no.1 1 mg-dha 300 mg capsule (PNV-[place]) blood sugar diagnostic (Accutrend #50 ea 10/26/24 [...] occupational status: employed 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[facility] pets and animals: No history of recent travel: No sexually active: Yes Smoking Status: Never smoker alcohol intake: never substance use type: does not use well-balanced diet: daily or most days caffeine: No eating out: 1-3 times/week during the past year weight has: decreased > 10 lbs what type of physical activity do you participate in: none lupis/anabaptist: None seatbelt use: sometimes do you feel safe at home: Yes additional social history: Boyfriend- Gretchen- Works at the [employer] History 4 Elective abortions Hx Para 3 Spontaneous abortions Hx # Term Pregnancies Ectopic pregnancies Hx # Pregnancies Multiple births # of living children 3 Past Pregnancies Del. Date Name GA/Weeks Outcome Route Bth Weight Gen Labor Lgth Anesthesia Del Locatn Provider FOB 08/21/16 Grac[place] 39 live - full term 9# Female epidural S [facility] Dr. Aaron Almanza 05/05/19 [place] 39 live - full term 8#1oz Male [facility] Dr. Castillo Almanza 06/06/20 [place] 38 live - full term 9#6oz Male epidural [facility] Dr. Castillo Almanza Delivery Date: 05/05/19 Last [...] 111/73 -???-???-???-???-?? (more content not included)... Normal [facility] Parvovirus B19 IgG AND IgMon 10-31-2024 PARVO B19 IGG 4.3 index Abnormal 0.0-0.8 [facility] Comment on above: Result Comment: Nega tive <0.9 Equivocal 0.9 - 1.1 Positive >1.1 Performed By: #### L 503.3413, L7000.2100, L503.0106, L503.8329 ####[facility] [address] [place], [place], [id number] PARVO B19 IGM 0.2 index Normal 0.0-0.8 [facility] Comment on above: Result Comment: Nega tive <0.9 Equivocal 0.9 - 1.1 Positive >1.1 Performed at: - [address] [id number] Assembly Operator: Abner Sharpe MD, Phone: [phone] Performed By: #### L 503.6030, L7000.2100, L503.0106, L503.6550 ####[facility] [address] [place], [place], [id number] Ferritinon 10-26-2024 Ferritin [Mass/Vol] 9 ng/mL Low 22-378 [facility] Comment on above: Performed By: #### L 503.6030, L7000.2100, L503.0106, L503.6550 ####[facility] [address] [place], [address] Iron measurement (mass/mass) Ordered By: Adelaida Robertson on 10-26-2024 Iron (Unsp spec) [Mass/Mass] 36 ug/dL Low 50-170 [facility] Iron+Iron Binding Capacityon 10-26-2024 TIBC 476 ug/dL High 250-450 [facility] Comment on above: Performed By: #### L 503.6030, L7000.2100, L503.0106, L503.6550 ####[facility] [address] [place], [place], [address] Laboratory - Chemistry and C hemistry - challengeOrdered By: Adelaida Robertson on 10-26-2024 Glucose Ql (U) Negative [facility] Laboratory - UrinalysisOrder ed By: Adelaida Robertson on 10-26-2024 Protein Ql (U) Negative [facility] No Panel InformationOrdered By: Adelaida Robertson on 10-26-2024 Unsaturated Iron Binding Capacity 440 ug/dL High 228-428 [facility] Telecommunications Field Technician Office Visit Reporton 10-26-2024 Telecommunications Field Technician Office Visit Report [facility]'[address], [address] [place] [address] OFFICE VISIT Date of Service: 10/26/24 MR#: [id number] Acct: [id number] Name: AYE WEIR Rep #: [id number] : 1995 Provider: Dr. 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[facility] 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 and animals: No history of recent travel: No sexually active: Yes Smoking Status: Never smoker alcohol intake: never substance use type: does not use well-balanced diet: daily or most days caffeine: No eating out: 1-3 times/week during the past year weight has: decreased > 10 lbs what type of physical activity do you participate in: none lupis/anabaptist: None seatbelt use: sometimes do you feel safe at home: Yes additional social history: Boyfriend- Gretchen- Works at the [employer] History 4 Elective abortions Hx Para 3 Spontaneous abortions Hx # Term Pregnancies Ectopic pregnancies Hx # Pregnancies Multiple births # of living children 3 Past Pregnancies Del. Date Name GA/Weeks Outcome Route Bth Weight Gen Labor Lgth Anesthesia Del Locatn Provider FOB 08/21/16 Gracelynn 39 live - full term 9# Female epidural S [facility] Dr. Aaron Almanza 05/05/19 [place] 39 live - full term [facility]20 [place] 38 live - full term 9#6oz Male epidural [facility] Dr. Castillo Almanza Delivery Date: 05/05/19 Last Updated by: Chrsity Diaz shoulder dystocia HPI 30 WK OB [...] 9w 6d (more content not included)... Normal [facility] Parvovirus B19 IgMOrdered By : Adelaida Robertson on 10-26-2024 Parvovirus B19 IgM IA Qn (S) 0.2 index 0.0-0.8 [facility] Comment on above: Negative <0.9 Equivo marvin 0.9 - 1.1 Positive >1.1Performed at: - [facility] [id number] Director: Abner Sharpe MD, Phone: [phone] Serum or plasma ferritin moriah surement (mass/volume)Ordered By: Adelaida Robertson on 10-26-2024 Ferritin [Mass/Vol] 9 ng/mL Low 22-378 [facility] Serum or plasma iron saturat ion measurement (mass fraction)Ordered By: Adelaida Robertson on 10-26-2024 Iron saturation [Mass fraction] 7.6 % Low 13-59 [facility] Comment on above: Previous reported re sult: 8.0 %Edited by: JOYCE on 10/26/24:2009 AMENDED REPORT 10/26/242009 IRON SATURATION previously reported as: 8.0 L % Vitamin B12on 10-26-2024 Cobalamin (Vitamin B12) [Mass/Vol] 462 pg/mL Normal 180-914 [facility] Comment on above: Performed By: #### L 503.6030, L7000.2100, L503.0106, L503.6550 ####[facility] [address] [place], [place], [id number] Vitamin B12 ser/plasOrdered By: Adelaida Robertson on 10-26-2024 Cobalamin (Vitamin B12) [Mass/Vol] 462 pg/mL 180-914 [facility] Absolute lymphocyte countOrd ered By: Luisa Curiel on 09-28-2024 Lymphocytes Auto (Unsp spec) [#/Vol] 1.98 10*3/uL 0.83-4.51 [facility] Absolute neutrophil countOrd ered By: Luisa Curiel on 09-28-2024 Neutrophils (Bld) [#/Vol] 5.9 10*3/uL 2.0-7.7 [facility] Automated lymphocyte count a s percentage of total leukocytesOrdered By: Luisa Curiel on 09-28-2024 Lymphocytes/100 WBC Auto (Unsp spec) 22.8 % 19-41 [facility] Basophil percentageOrdered B y: Luisa Curiel on 09-28-2024 Basophils/100 WBC (Bld) 0.3 % 0-1 [facility] CBC W/Diff, Automatedon 09-01 Absolute Lymph 1.98 X10 3/uL Normal 0.83-4.51 [facility] Comment on above: Performed By: #### L 501.0250, L100.0100, L3890.6006, L509.8002 ####[facility] [address] [place], [address] Absolute Neut 5.9 X10 3/uL Normal 2.0-7.7 [facility] Comment on above: Performed By: #### L 501.0250, L100.0100, L3890.6006, L509.8002 ####[facility] [address] [place], [address] Basophils/100 WBC (Bld) 0.3 % Normal 0-1 [facility] Comment on above: Performed By: #### L 501.0250, L100.0100, L3890.6006, L509.8002 ####[facility] [address] [place], [address] Eosinophils/100 WBC (Bld) 0.8 % Normal 0-5 [facility] Comment on above: Performed By: #### L 501.0250, L100.0100, L3890.6006, L509.8002 ####[facility] [address] [place], [address] Erythrocyte distribution width (RBC) [Ratio] 13.8 % Normal 11.6-14.6 [facility] Comment on above: Performed By: #### L 501.0250, L100.0100, L3890.6006, L509.8002 ####[facility] [address] [place], [address] Hematocrit (Bld) [Volume fraction] 29.4 % Low 37-47 [facility] Comment on above: Performed By: #### L 501.0250, L100.0100, L3890.6006, L509.8002 ####[facility] [address] [place], [address] Hemoglobin (Bld) [Mass/Vol] 9.4 g/dL Low 12.0-15.0 [facility] Comment on above: Performed By: #### L 501.0250, L100.0100, L3890.6006, L509.8002 ####[facility] [address] [place], [address] IG% 0.500 Normal 0.0-0.9 [facility] Comment on above: Result Comment: IG% - Immature Granulocytes (promyelocytes, myelocytes and metamyelocytes) > 1% indicates that a LEFT SHIFT is Present. Performed By: #### L 501.0250, L100.0100, L3890.6006, L509.8002 ####[facility] [address] [place], [address] Lymphocytes/100 WBC (Bld) 22.8 % Normal 19-41 [facility] Comment on above: Performed By: #### L 501.0250, L100.0100, L3890.6006, L509.8002 ####[facility] [address] [place], [address] MCH (RBC) [Entitic mass] 28.8 pg Normal 27.0-32.0 [facility] Comment on above: Performed By: #### L 501.0250, L100.0100, L3890.6006, L509.8002 ####[facility] [address] [place], [address] MCHC (RBC) [Mass/Vol] 32.0 g/dL Normal 32-36 [facility] Comment on above: Performed By: #### L 501.0250, L100.0100, L3890.6006, L509.8002 ####[facility] [address] [place], [address] MCV (RBC) [Entitic vol] 90.2 fL Normal 81-99 [facility] Comment on above: Performed By: #### L 501.0250, L100.0100, L3890.6006, L509.8002 ####[facility] [address] [place], [address] Monocytes/100 WBC (Bld) 8.1 % Normal 0-10 [facility] Comment on above: Performed By: #### L 501.0250, L100.0100, L3890.6006, L509.8002 ####[facility] [address] [place], [address] Neutrophils/100 WBC (Bld) 67.5 % Normal 47-70 [facility] Comment on above: Performed By: #### L 501.0250, L100.0100, L3890.6006, L509.8002 ####[facility] [address] [place], [address] Nucleated RBC (Bld) [#/Vol] 0 10*3/uL Normal 0-5 [facility] Comment on above: Performed By: #### L 501.0250, L100.0100, L3890.6006, L509.8002 ####[facility] [address] [place], [address] Platelet mean volume (Bld) [Entitic vol] 10.3 fL Normal 6.2-12.0 [facility] Comment on above: Performed By: #### L 501.0250, L100.0100, L3890.6006, L509.8002 ####[facility] [address] [place], [address] Platelets (Bld) [#/Vol] 263 10*3/uL Normal 150-450 [facility] Comment on above: Performed By: #### L 501.0250, L100.0100, L3890.6006, L509.8002 ####[facility] [address] [place], [address] RBC (Bld) [#/Vol] 3.26 10*6/uL Low 4.2-5.4 [facility] Comment on above: Performed By: #### L 501.0250, L100.0100, L3890.6006, L509.8002 ####[facility] [address] [place], [address] RDW SD 45.5 fl High 35.1-43.9 [facility] Comment on above: Performed By: #### L 501.0250, L100.0100, L3890.6006, L509.8002 ####[facility] [address] [place], [address] WBC (Bld) [#/Vol] 8.7 10*3/uL Normal 4.4-11.0 [facility] Comment on above: Performed By: #### L 501.0250, L100.0100, L3890.6006, L509.8002 ####[facility] [address] [place], [address] Eosinophil percentageOrdered By: Luisa Curiel on 09-28-2024 Eosinophils/100 WBC (Bld) 0.8 % 0-5 [facility] Erythrocyte distribution wid th ratioOrdered By: Luisajg Curiel on 09-28-2024 Erythrocyte distribution width (RBC) [Ratio] 13.8 % 11.6-14.6 [facility] Erythrocyte distribution wid th standard deviationOrdered By: Luisa Veena on 09-28-2024 Erythrocyte distribution width (RBC) [Ratio] 45.5 fl High 35.1-43.9 [facility] Ferritinon 09-28-2024 Ferritin [Mass/Vol] 9 ng/mL Low 22-378 [facility] Comment on above: Performed By: #### L 503.6030, L503.6550 ####[facility] [address] [place], [address] Glucose Challenge Gest 1H 50 tere 09-28-2024 GLU GEST 50g 1H 95 mg/dL Normal 70-140 [facility] Comment on above: Performed By: #### L 501.0250, L100.0100, L3890.6006, L509.8002 ####[facility] [address] [place], [place], [id number] Glucose measurement at 2 leia rs post-dose gestational glucose tolerance testOrdered By: Luisa Curiel on 09-28-2024 Glucose [Mass/Vol] 95 mg/dL 70-140 [facility] HIVon 09-28-2024 HIV Non-Reactive Normal Nonreactive [facility] Comment on above: Result Comment: Non- Reactive Reactive Repeatedly reactive samples must be confirmed according to CDC recommended confirmatory algorithms. The subresults for either HIVAG or AHIV can be used as an aid in the selection of the confirmation algorithm for reactive samples. Send out specimens with Reactive results to [facility] for confirmation. Order the HIV antibody detection and differentiation: lc#[id number] Performed By: #### L 501.0250, L100.0100, L3890.6006, L509.8002 ####[facility] [address] [place], [place], [address] Hematocrit Auto (Bld) [Volum e fraction]Ordered By: Luisa Curiel on 09-28-2024 Hematocrit (Bld) [Volume fraction] 29.4 % Low 37-47 [facility] Hemoglobin measurementOrdere d By: Luisa Curiel on 09-28-2024 Hemoglobin (Bld) [Mass/Vol] 9.4 g/dL Low 12.0-15.0 [facility] Immature granulocytes/100 WB C Auto (Bld)Ordered By: Luisa Curiel on 09-28-2024 Immature granulocytes/100 WBC (Bld) 0.500 % 0.0-0.9 [facility] Comment on above: IG% - Immature Granu locytes (promyelocytes, myelocytes and metamyelocytes) > 1% indicates that a LEFT SHIFT is Present. Iron measurement (mass/mass) Ordered By: Isabel Luz on 09-28-2024 Iron (Unsp spec) [Mass/Mass] 37 ug/dL Low 50-170 [facility] Iron+Iron Binding Capacityon 09-28-2024 Iron [Mass/Vol] 37 ug/dL Low 50-170 [facility] Comment on above: Performed By: #### L 503.6030, L503.6550 ####[facility] [address] [place], [address] IRON SATURATION 9.0 Low 13-59 [facility] Comment on above: Performed By: #### L 503.6030, L503.6550 ####[facility] [address] [place], [address] TIBC 422 ug/dL Normal 250-450 [facility] Comment on above: Performed By: #### L 503.6030, L503.6550 ####[facility] [address] [place], [address] UIBC 385 ug/dL Normal 228-428 [facility] Comment on above: Performed By: #### L 503.6030, L503.6550 ####[facility] [address] [place], [address] MCV (mean corpuscular volume ) determinationOrdered By: Luisa Curiel on 09-28-2024 MCV (RBC) [Entitic vol] 90.2 fL 81-99 [facility] Mean corpuscular hemoglobin (MCH) determinationOrdered By: Luisa Curiel on 09-28-2024 MCH (RBC) [Entitic mass] 28.8 pg 27.0-32.0 [facility] Mean corpuscular hemoglobin concentration (MCHC) determinationOrdered By: Luisa Curiel on 09-28-2024 MCHC (RBC) [Mass/Vol] 32.0 g/dL 32-36 [facility] Mean platelet volume determi nationOrdered By: Luisa Curiel on 09-28-2024 Platelet mean volume (Bld) [Entitic vol] 10.3 fL 6.2-12.0 [facility] Monocyte percentageOrdered B y: Luisa Curiel on 09-28-2024 Monocytes/100 WBC (Bld) 8.1 % 0-10 [facility] Neutrophil percentageOrdered By: Luisa Curiel on 09-28-2024 Neutrophils/100 WBC (Bld) 67.5 % 47-70 [facility] No Panel InformationOrdered By: Luisa Curiel on 09-28-2024 HIV (1&2) Antibody Non-Reactive Nonreactive [facility] Comment on above: Non-ReactiveReactive Repeatedly reactive samples must be confirmed according to CDC recommended confirmatory algorithms. The subresults for either HIVAG or AHIV can be used as an aid in the selection of the confirmation algorithm for reactive samples.Send out specimens with Reactive results to [facility] for confirmation.Order the HIV antibody detection and differentiation: #[id number] No Panel InformationOrdered By: Isabel Luz on 09-28-2024 Unsaturated Iron Binding Capacity 385 ug/dL 228-428 [facility] Center Nucleated red blood cell per centageOrdered By: Luisa Curiel on 09-28-2024 Nucleated RBC/100 WBC (Bld) [Ratio] 0 % 0-5 [facility] Telecommunications Field Technician Office Visit Reporton 09-28-2024 Telecommunications Field Technician Office Visit Report [facility]'s [address], [address] [place] [address] OFFICE VISIT Date of Service: 09/28/24 MR#: [id number] Acct: [id number] Name: AYE WEIR Rep #: [id number] : 1995 Provider: Dr. 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 and animals: No history of recent travel: No sexually active: Yes Smoking Status: Never smoker alcohol intake: never substance use type: does not use well-balanced diet: daily or most days caffeine: No eating out: 1-3 times/week during the past year weight has: decreased > 10 lbs what type of physical activity do you participate in: none lupis/anabaptist: None seatbelt use: sometimes do you feel safe at home: Yes additional social history: Boyfriend- Gretchen- Works at the [employer] History 4 Elective abortions Hx Para 3 Spontaneous abortions Hx # Term Pregnancies Ectopic pregnancies Hx # Pregnancies Multiple births # of living children 3 Past Pregnancies Del. Date Name GA/Weeks Outcome Route Bth Weight Infant Gen Labor Lgth Anesthesia Del Locatn Provider FOB 08/21/16 Lay[place] 39 live - full term 9# Female epidural S [facility] Dr. Aaron Almanza 05/05/19 [place] 39 live - full term 8#1oz Male none [facility] Dr. Castillo Almanza 06/06/20 Melissa 38 live - full term 9#6oz Male epidural [facility] Dr. Castillo Almanza Delivery Date: 05/05/19 Last [...] on Me (more content not included)... Normal [facility] Platelet countOrdered By: Edmundo Curiel on 09-28-2024 Platelets (Bld) [#/Vol] 263 10*3/uL 150-450 [facility] RBC Auto (Bld) [#/Vol]Ordere d By: Luisa Curiel on 09-28-2024 RBC (Bld) [#/Vol] 3.26 10*6/uL Low 4.2-5.4 [facility] Serum or plasma ferritin moriah surement (mass/volume)Ordered By: Isabel Luz on 09-28-2024 Ferritin [Mass/Vol] 9 ng/mL Low 22-378 [facility] Serum or plasma iron saturat ion measurement (mass fraction)Ordered By: Isabel Luz on 09-28-2024 Iron saturation [Mass fraction] 9.0 % Low 13-59 [facility] Syphilis Antibodieson 2024 Syphilis Abs Non-Reactive Normal Nonreactive [facility] Comment on above: Performed By: #### L 501.0250, L100.0100, L3890.6006, L509.8002 ####[facility] [address] [place], [place], [id number] White blood cell (WBC) count Ordered By: Luisa Curiel on 09-28-2024 WBC (Bld) [#/Vol] 8.7 10*3/uL 4.4-11.0 [facility] Genital Culture Comprehensiv tay 09-02-2024 VAC Reason for Exam: spotting Presumptive C albicans Amount Growth 3+ Normal [facility] Comment on above: Performed By: #### M 100.2000, M100.3200 ####[facility] [address] [place], [address] Laboratory - Chemistry and C hemistry - challengeOrdered By: Luisa Curiel on 08-31-2024 Glucose Ql (U) Negative [facility] Laboratory - UrinalysisOrder ed By: Luisa Curiel on 08-31-2024 Protein Ql (U) Negative [facility] Telecommunications Field Technician Office Visit Reporton 08-31-2024 Telecommunications Field Technician Office Visit Report [facility]'[address], [address] [place] [address] OFFICE VISIT Date of Service: 08/31/24 MR#: [id number] Acct: [id number] Name: AYE WEIR Rep #: [id number] : 1995 Provider: ZION maher Age/Sex: 29/F Location: [facility] [place] [facility] Status: Signed Intake Vital Signs 06/09/24 11:31 08/29/24 13:51 08/31/24 09:40 Height 5 ft 6 in 5 ft 6 in 5 ft 6 in Weight: 214 lb 4 oz BMI 34.5 BP 102/64 Intake Visit Reasons: 22WK OB Chief Complaint: 22 Week OB Sugar Coating Hand Required: No Is patient in pain?: No [...] mg-folate no.1 1 mg-dha 300 mg capsule (PNV-[place]) Last Menstrual Period: 11/01/24 Zika: Zika virus screening: Negative : No [...] occupational status: employed 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[facility] pets and animals: No history of recent travel: No sexually active: Yes Smoking Status: Never smoker alcohol intake: never substance use type: does not use well-balanced diet: daily or most days caffeine: No eating out: 1-3 times/week during the past year weight has: decreased > 10 lbs what type of physical activity do you participate in: none lupis/anabaptist: None seatbelt use: sometimes do you feel safe at home: Yes additional social history: Boyfriend- Gretchen- Works at the [employer] History 4 Elective abortions Hx Para 3 Spontaneous abortions Hx # Term Pregnancies Ectopic pregnancies Hx # Pregnancies Multiple births # of living children 3 Past Pregnancies Del. Date Name GA/Weeks Outcome Route Bth Weight Infant Gen Labor Lgth Anesthesia Del Locatn Provider FOB 08/21/16 Layo 39 live - full term 9# Female epidural S [facility] Dr. Aaron Almanza 05/05/19 [place] 39 live - [facility] Melissa 38 live - full term 9#6oz Male epidural [facility] Dr. Castillo Almanza Delivery Date: 05/05/19 Last [...] 07/11/24 -???-???-???- (more content not included)... 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[facility] pets and animals: No history of recent travel: No sexually active: Yes Smoking Status: Never smoker alcohol intake: never substance use type: does not use well-balanced diet: daily or most days caffeine: No eating out: 1-3 times/week during the past year weight has: decreased > 10 lbs what type of physical activity do you participate in: none lupis/anabaptist: None seatbelt use: sometimes do you feel safe at home: Yes additional social history: Boyfriend- Gretchen- Works at the [employer] History 4 Elective abortions Hx Para 3 Spontaneous abortions Hx # Term Pregnancies Ectopic pregnancies Hx # Pregnancies Multiple births # of living children 3 Past Pregnancies Del. Date Name GA/Weeks Outcome Route Bth Weight Infant Gen Labor Lgth Anesthesia Del Locatn Provider FOB 08/21/16 Gracelleilan 39 live - full term 9# Female epidural S [facility] Dr. Aaron Almanza 05/05/19 [place] 39 live - full term 8#1oz Male [facility] Dr. Castillo Almanza 06/06/20 [place] 38 live - full term 9#6oz Male epidural [facility] Dr. Castillo Almanza Delivery Date: 05/05/19 Last [...] -???-???-???-???-???-??? -???-???- (more content not included)... Normal [facility] Bilirubin Test strip Ql (U)O rdered By: Isabel Luz on 08-29-2024 Bilirubin Ql (U) Negative Negative [facility] Glucose Ql (U)Ordered By: Ricardo Luz on 08-29-2024 Urine Glucose (UA) Normal mg/dl Normal [facility] Gram Stainon 08-29-2024 GS Reason for Exam: spotting Gram Stain Rare Yeast Like Organisms 2+ White Blood Cells 3+ Gram positive rods Score = 1 Interpretation: 0-3 Normal, 4-6 Intermediate, 7-10 Positive BV Normal [facility] Comment on above: Performed By: #### M 100.2000, M100.3200 ####[facility] [address] [place], [address] Gram stainOrdered By: Isabel Luz on 08-29-2024 Microscopic observation Gram stain Nom (Unsp spec) [facility] Ketones Test strip Ql (U)Ord ered By: Isabel Luz on 08-29-2024 Ketones Ql (U) Negative Negative [facility] Microscopic analysis of urin e for red blood cells (RBC)Ordered By: Isabel Luz on 08-29-2024 Microscopic analysis of urine for red blood cells (RBC) Not Reportable [facility] Mucus LM Ql (Urine sed)Order ed By: Isabel Luz on 08-29-2024 Mucus Ql (Urine sed) 0 SEEN /hpf [facility] Nitrite Test strip Ql (U)Ord ered By: Isabel Luz on 08-29-2024 Nitrite Ql (U) Negative Negative [facility] OB Limited (No Biometrics)on 08-29-2024 OB Limited (No Biometrics) [facility] Imaging Services [address] [place] [address] OB Limited (No Biometrics) MR#: [id number] Acct: [id number] Name: AYE WEIR Rep #: [id number] : 1995 F 29 From: Steven hernandez MD PCP: Care Physician,No Primary Status: REG CLI Study: OB Limited (No Biometrics) Date of Exam: 08/29 Exam# [id number] Ordering Dr: Isabel Luz PROCEDURE: OB LIMITED [...] not low-lying. position is breech. Reading Location: [place] [address] CC: Dr. Isabel Luz MD; No Primary Care Physician Delivery And Installation Subcontractor: Signed Normal [facility] Protein Test strip Ql (U)Ord ered By: Isabel Luz on 08-29-2024 Protein Ql (U) Negative Negative [facility] Squamous epithelial cells de tection in urine sediment by light microscopyOrdered By: Isabel Luz on 08-29-2024 Epithelial cells.squamous LM Ql (Urine sed) 0-5 SEEN /hpf 5-10 [facility] Urinalysis, Completeon 08-29 EPI,SQUAMOUS 0-5 SEEN Normal 5-10 [facility] Comment on above: Order Comment: JOEY TER SPECIMEN Performed By: #### L 400.0001 ####[facility] [address] [place], [address] WBC 0-5 SEEN Normal 0-5 [facility] Comment on above: Order Comment: JOEY TER SPECIMEN Performed By: #### L 400.0001 ####[facility] [address] [place], [address] BACTERIA 0 SEEN Normal None Seen [facility] Comment on above: Order Comment: JOEY TER SPECIMEN Performed By: #### L 400.0001 ####[facility] [address] [place], [address] Mucus Ql (Urine sed) 0 SEEN Normal [facility] Comment on above: Order Comment: JOEY TER SPECIMEN Performed By: #### L 400.0001 ####[facility] [address] [place], [place], [id number] Urine blood detectionOrdered By: Isabel Luz on 08-29-2024 Urine Occult Blood 10 /ul High Negative [facility] Urine clarityOrdered By: Bogdan Luz on 08-29-2024 Clarity (U) Clear Clear [facility] Urine color determinationOrd ered By: Isabel Luz on 08-29-2024 Color (U) Yellow Yellow [facility] Urine glucose detectionOrder ed By: Isabel Luz on 08-29-2024 Glucose Ql (U) Normal mg/dl Normal [facility] Urine leukocyte esterase det ection by dipstickOrdered By: Isabel Luz on 08-29-2024 Leukocyte esterase Test strip Ql (U) 25 /ul High Negative [facility] Urine pHOrdered By: Isabel thomas on 08-29-2024 pH (U) 7.0 [pH] 5.0 - 8.0 [facility] Urine sediment bacteria coun t by microscopy (number/high power field)Ordered By: Isabel Luz on 08-29-2024 Bacteria LM.HPF (Urine sed) [#/Area] 0 /[HPF] None Seen [facility] Urine specific gravity measu rementOrdered By: Isaebl Luz on 08-29-2024 Specific gravity (U) [Rel density] 1.005 1.002-1.030 [facility] Urine urobilinogen measureme ntOrdered By: Isabel Santosronald on 08-29-2024 Urobilinogen Ql (U) Normal mg/dl Normal [facility] Urobilinogen Ql (U)Ordered B y: Isabel Luz on 08-29-2024 Urine Urobilinogen Normal mg/dl Normal [facility] White blood cell countOrdere d By: Isabel Sukh on 08-29-2024 White blood cell count 0-5 SEEN /hpf 0-5 [facility] Absolute lymphocyte countOrd ered By: Jocelyn Malcolm on 08-04-2024 Lymphocytes Auto (Unsp spec) [#/Vol] 2.39 10*3/uL 0.83-4.51 [facility] Absolute neutrophil countOrd ered By: Jocelyn Malcolm on 08-04-2024 Neutrophils (Bld) [#/Vol] 7.2 10*3/uL 2.0-7.7 [facility] Anion gap in Serum or Plasma Ordered By: Jocelyn Malcolm on 08-04-2024 Anion gap [Moles/Vol] 12 mmol/L 5-15 [facility] Automated lymphocyte count a s percentage of total leukocytesOrdered By: Jocelyn Malcolm on 08-04-2024 Lymphocytes/100 WBC Auto (Unsp spec) 22.8 % 19-41 [facility] BUN/creatinine ratioOrdered By: Jocelyn Malcolm on 08-04-2024 Urea nitrogen/Creatinine [Mass ratio] 18.1 mg/mg 10-20 [facility] Basophil percentageOrdered B y: Jocelyn Malcolm on 08-04-2024 Basophils/100 WBC (Bld) 0.4 % 0-1 [facility] Bilirubin, totalOrdered By: Jocelyn Malcolm on 08-04-2024 Bilirubin [Mass/Vol] mg/dL 0.00-1.30 [facility] CBC W/Diff, Automatedon Absolute Lymph 2.39 X10 3/uL Normal 0.83-4.51 [facility] Comment on above: Performed By: #### B TS, L3890.6301, L100.0100, L509.4006, L500.4050, L3890.6006, L509.8002, L3890.6102, L501.9985 #### [facility] Laboratory [address] [place], [address] Absolute Neut 7.2 X10 3/uL Normal 2.0-7.7 [facility] Comment on above: Performed By: #### B TS, L3890.6301, L100.0100, L509.4006, L500.4050, L3890.6006, L509.8002, L3890.6102, L501.9985 #### [facility] Laboratory [address] [place], [address] Basophils/100 WBC (Bld) 0.4 % Normal 0-1 [facility] Comment on above: Performed By: #### B TS, L3890.6301, L100.0100, L509.4006, L500.4050, L3890.6006, L509.8002, L3890.6102, L501.9985 #### [facility] [address] [place], [address] Eosinophils/100 WBC (Bld) 1.0 % Normal 0-5 [facility] Comment on above: Performed By: #### B TS, L3890.6301, L100.0100, L509.4006, L500.4050, L3890.6006, L509.8002, L3890.6102, L501.9985 #### [facility] [address] [place], [address] Erythrocyte distribution width (RBC) [Ratio] 14.4 % Normal 11.6-14.6 [facility] Comment on above: Performed By: #### B TS, L3890.6301, L100.0100, L509.4006, L500.4050, L3890.6006, L509.8002, L3890.6102, L501.9985 #### [facility] [address] [place], [address] Hematocrit (Bld) [Volume fraction] 32.9 % Low 37-47 [facility] Comment on above: Performed By: #### B TS, L3890.6301, L100.0100, L509.4006, L500.4050, L3890.6006, L509.8002, L3890.6102, L501.9985 #### [facility] [address] [place], [address] Hemoglobin (Bld) [Mass/Vol] 10.6 g/dL Low 12.0-15.0 [facility] Comment on above: Performed By: #### B TS, L3890.6301, L100.0100, L509.4006, L500.4050, L3890.6006, L509.8002, L3890.6102, L501.9985 #### [facility] [address] [place], [address] IG% 0.300 Normal 0.0-0.9 [facility] Comment on above: Result Comment: IG% - Immature Granulocytes (promyelocytes, myelocytes and metamyelocytes) > 1% indicates that a LEFT SHIFT is Present. Performed By: #### B TS, L3890.6301, L100.0100, L509.4006, L500.4050, L3890.6006, L509.8002, L3890.6102, L501.9985 #### [facility] [address] [place], [address] Lymphocytes/100 WBC (Bld) 22.8 % Normal 19-41 [facility] Comment on above: Performed By: #### B TS, L3890.6301, L100.0100, L509.4006, L500.4050, L3890.6006, L509.8002, L3890.6102, L501.9985 #### [facility] [address] [place], [address] MCH (RBC) [Entitic mass] 28.4 pg Normal 27.0-32.0 [facility] Comment on above: Performed By: #### B TS, L3890.6301, L100.0100, L509.4006, L500.4050, L3890.6006, L509.8002, L3890.6102, L501.9985 #### [facility] [address] [place], [address] MCHC (RBC) [Mass/Vol] 32.2 g/dL Normal 32-36 [facility] Comment on above: Performed By: #### B TS, L3890.6301, L100.0100, L509.4006, L500.4050, L3890.6006, L509.8002, L3890.6102, L501.9985 #### [facility] [address] [place], [address] MCV (RBC) [Entitic vol] 88.2 fL Normal 81-99 [facility] Comment on above: Performed By: #### B TS, L3890.6301, L100.0100, L509.4006, L500.4050, L3890.6006, L509.8002, L3890.6102, L501.9985 #### [facility] [address] [place], [address] Monocytes/100 WBC (Bld) 7.5 % Normal 0-10 [facility] Comment on above: Performed By: #### B TS, L3890.6301, L100.0100, L509.4006, L500.4050, L3890.6006, L509.8002, L3890.6102, L501.9985 #### [facility] [address] [place], [address] Neutrophils/100 WBC (Bld) 68.0 % Normal 47-70 [facility] Comment on above: Performed By: #### B TS, L3890.6301, L100.0100, L509.4006, L500.4050, L3890.6006, L509.8002, L3890.6102, L501.9985 #### [facility] [address] [place], [address] Nucleated RBC (Bld) [#/Vol] 0 10*3/uL Normal 0-5 [facility] Comment on above: Performed By: #### B TS, L3890.6301, L100.0100, L509.4006, L500.4050, L3890.6006, L509.8002, L3890.6102, L501.9985 #### [facility] [address] [place], [address] Platelet mean volume (Bld) [Entitic vol] 10.4 fL Normal 6.2-12.0 [facility] Comment on above: Performed By: #### B TS, L3890.6301, L100.0100, L509.4006, L500.4050, L3890.6006, L509.8002, L3890.6102, L501.9985 #### [facility] [address] [place], [address] Platelets (Bld) [#/Vol] 285 10*3/uL Normal 150-450 [facility] Comment on above: Performed By: #### B TS, L3890.6301, L100.0100, L509.4006, L500.4050, L3890.6006, L509.8002, L3890.6102, L501.9985 #### [facility] [address] [place], [address] RBC (Bld) [#/Vol] 3.73 10*6/uL Low 4.2-5.4 [facility] Comment on above: Performed By: #### B TS, L3890.6301, L100.0100, L509.4006, L500.4050, L3890.6006, L509.8002, L3890.6102, L501.9985 #### [facility] [address] [place], [address] RDW SD 46.3 fl High 35.1-43.9 [facility] Comment on above: Performed By: #### B TS, L3890.6301, L100.0100, L509.4006, L500.4050, L3890.6006, L509.8002, L3890.6102, L501.9985 #### [facility] [address] [place], [address] WBC (Bld) [#/Vol] 10.5 10*3/uL Normal 4.4-11.0 [facility] Comment on above: Performed By: #### B TS, L3890.6301, L100.0100, L509.4006, L500.4050, L3890.6006, L509.8002, L3890.6102, L501.9985 #### [facility] [address] [place], [address] Carbon dioxide, total [Moles /volume] in Central venous bloodOrdered By: Jocelyn Malcolm on 08-04-2024 CO2 [Moles/Vol] 20.0 mmol/L Low 21.0-32.0 [facility] Chloride assayOrdered By: Robert Malcolm on 08-04-2024 Chloride [Moles/Vol] 105 mmol/L 98-108 [facility] Comprehensive Metabolic Prof ilon 08-04-2024 Albumin [Mass/Vol] 3.6 g/dL Normal 3.5-5.0 [facility] Comment on above: Performed By: #### B TS, L3890.6301, L100.0100, L509.4006, L500.4050, L3890.6006, L509.8002, L3890.6102, L501.9985 #### [facility] [address] [place], [place], [id number] Albumin/Globulin [Mass ratio] 1.2 {ratio} Normal 0.9-2.4 [facility] Comment on above: Performed By: #### B TS, L3890.6301, L100.0100, L509.4006, L500.4050, L3890.6006, L509.8002, L3890.6102, L501.9985 #### [facility] [address] [place], [place], [id number] (968) ALK PHOS 65 U/L Normal 35-104 [facility] Comment on above: Performed By: #### B TS, L3890.6301, L100.0100, L509.4006, L500.4050, L3890.6006, L509.8002, L3890.6102, L501.9985 #### [facility] [address] [place], [place], [id number] ALT [Catalytic activity/Vol] 10 U/L Normal <=34 [facility] Comment on above: Performed By: #### B TS, L3890.6301, L100.0100, L509.4006, L500.4050, L3890.6006, L509.8002, L3890.6102, L501.9985 #### [facility] [address] [place], [address] AST [Catalytic activity/Vol] 13 U/L Normal <=31 [facility] Comment on above: Performed By: #### B TS, L3890.6301, L100.0100, L509.4006, L500.4050, L3890.6006, L509.8002, L3890.6102, L501.9985 #### [facility] [address] [place], [address] BUN/CRE 18.1 RATIO Normal 10-20 [facility] Comment on above: Performed By: #### B TS, L3890.6301, L100.0100, L509.4006, L500.4050, L3890.6006, L509.8002, L3890.6102, L501.9985 #### [facility] [address] [place], [address] Calcium [Mass/Vol] 8.9 mg/dL Normal 7.6-11.0 [facility] Comment on above: Performed By: #### B TS, L3890.6301, L100.0100, L509.4006, L500.4050, L3890.6006, L509.8002, L3890.6102, L501.9985 #### [facility] [address] [place], [address] Chloride [Moles/Vol] 105 mmol/L Normal 98-108 [facility] Comment on above: Performed By: #### B TS, L3890.6301, L100.0100, L509.4006, L500.4050, L3890.6006, L509.8002, L3890.6102, L501.9985 #### [facility] [address] [place], [address] CO2 [Moles/Vol] 20.0 mmol/L Low 21.0-32.0 [facility] Comment on above: Performed By: #### B TS, L3890.6301, L100.0100, L509.4006, L500.4050, L3890.6006, L509.8002, L3890.6102, L501.9985 #### [facility] [address] [place], [address] Creatinine [Mass/Vol] 0.56 mg/dL Low 0.70-1.20 [facility] Comment on above: Performed By: #### B TS, L3890.6301, L100.0100, L509.4006, L500.4050, L3890.6006, L509.8002, L3890.6102, L501.9985 #### [facility] [address] [place], [address] GAP 12 Normal 5-15 [facility] Comment on above: Performed By: #### B TS, L3890.6301, L100.0100, L509.4006, L500.4050, L3890.6006, L509.8002, L3890.6102, L501.9985 #### [facility] [address] [place], [address] GFR/1.73 sq M.predicted among non-blacks MDRD (S/P/Bld) [Vol rate/Area] 127 mL/min/{1.73_m2} Normal >60 [facility] Comment on above: Result Comment: mL/m in/1.73m2 CKD-EPI Creatinine Equation (2020) Performed By: #### B TS, L3890.6301, L100.0100, L509.4006, L500.4050, L3890.6006, L509.8002, L3890.6102, L501.9985 #### [facility] [facility] [address] [place], [address] Globulin (S) [Mass/Vol] 3.0 g/dL Normal 2.2-4.2 [facility] Comment on above: Performed By: #### B TS, L3890.6301, L100.0100, L509.4006, L500.4050, L3890.6006, L509.8002, L3890.6102, L501.9985 #### [facility] [address] [place], [address] Glucose [Mass/Vol] 76 mg/dL Normal 70-99 [facility] Comment on above: Performed By: #### B TS, L3890.6301, L100.0100, L509.4006, L500.4050, L3890.6006, L509.8002, L3890.6102, L501.9985 #### [facility] [address] [place], [address] Potassium [Moles/Vol] 4.1 mmol/L Normal 3.3-5.1 [facility] Comment on above: Performed By: #### B TS, L3890.6301, L100.0100, L509.4006, L500.4050, L3890.6006, L509.8002, L3890.6102, L501.9985 #### [facility] [address] [place], [address] Sodium [Moles/Vol] 137 mmol/L Normal 133-145 [facility] Comment on above: Performed By: #### B TS, L3890.6301, L100.0100, L509.4006, L500.4050, L3890.6006, L509.8002, L3890.6102, L501.9985 #### [facility] [address] [place], [address] T BILI < 0.15 Normal 0.00-1.30 [facility] Comment on above: Performed By: #### B TS, L3890.6301, L100.0100, L509.4006, L500.4050, L3890.6006, L509.8002, L3890.6102, L501.9985 #### [facility] [address] [place], [address] T PROT 6.6 g/dL Normal 5.9-8.4 [facility] Comment on above: Performed By: #### B TS, L3890.6301, L100.0100, L509.4006, L500.4050, L3890.6006, L509.8002, L3890.6102, L501.9985 #### [facility] [address] [place], [place], [address] Urea nitrogen [Mass/Vol] 10 mg/dL Normal 4-19 [facility] Comment on above: Performed By: #### B TS, L3890.6301, L100.0100, L509.4006, L500.4050, L3890.6006, L509.8002, L3890.6102, L501.9985 #### [facility] [address] [facility] [address] [place], [place], [id number] Eosinophil percentageOrdered By: Jocelyn Malcolm on 08-04-2024 Eosinophils/100 WBC (Bld) 1.0 % 0-5 [facility] Erythrocyte distribution wid th ratioOrdered By: Jocelyn Malcolm on 08-04-2024 Erythrocyte distribution width (RBC) [Ratio] 14.4 % 11.6-14.6 [facility] Erythrocyte distribution wid th standard deviationOrdered By: Jocelyn Malcolm on 08-04-2024 Erythrocyte distribution width (RBC) [Entitic vol] 46.3 fL High 35.1-43.9 [facility] Erythrocyte distribution width (RBC) [Ratio] 46.3 fl High 35.1-43.9 [facility] GFR/1.73 sq M.predicted alvin g non-blacks MDRD (S/P/Bld) [Vol rate/Area]Ordered By: Jocelyn Malcolm on 08-04-2024 Estimated GFR (MDRD) Non-Af Amer 127 >60 [facility] Comment on above: mL/min/1.73m2 CKD-EP I Creatinine Equation (2020) Glomerular filtration rate ( GFR) estimation/1.73 sq m using serum, plasma, or whole bOrdered By: Jocelyn Malcolm on 08-04-2024 GFR/1.73 sq M.predicted among non-blacks MDRD (S/P/Bld) [Vol rate/Area] 127 mL/min/{1.73_m2} >60 [facility] Comment on above: mL/min/1.73m2 CKD-EP I Creatinine Equation (2020) HBV surface Ag Ql (S)Ordered By: Jocelyn Malcolm on 08-04-2024 Hepatitis B Surface Antigen Non-Reactive Nonreactive [facility] Comment on above: Reactive: Presumptiv e evidence of HBV. Repeatedly reactive samples must be confirmed using a neutralization test ([employer] HBsAg Confirmatory Test)Non-Reactive: HBsAg not detected; does not exclude the possibility of exposure to HBV Hematocrit Auto (Bld) [Volum e fraction]Ordered By: Jocelyn Malcolm on 08-04-2024 Hematocrit (Bld) [Volume fraction] 32.9 % Low 37-47 [facility] Hemoglobin A1con 08-04-2024 HbA1c (Bld) [Mass fraction] 5.5 % Low <=5.6 [facility] Comment on above: Performed By: #### B TS, L3890.6301, L100.0100, L509.4006, L500.4050, L3890.6006, L509.8002, L3890.6102, L501.9985 #### [facility] [place], [address] Hemoglobin A1c percentageOrd ered By: Jocelyn Malcolm on 08-04-2024 HbA1c (Bld) [Mass fraction] 5.5 % Low >5.7 [facility] Hemoglobin measurementOrdere d By: Jocelyn Malcolm on 08-04-2024 Hemoglobin (Bld) [Mass/Vol] 10.6 g/dL Low 12.0-15.0 [facility] Hepatitis C antibodyOrdered By: Jocelyn Malcolm on 08-04-2024 Hepatitis C Antibody Non-Reactive Nonreactive [facility] Comment on above: Reactive: Presumptiv e evidence of antibodies to HCV. Follow CDC recommendations for supplemental testing.Non-Reactive: Antibodies to HCV were not detected; does not exclude the possibility of exposure to HCVReactive Results are presumptive evidence of antibodies to HCV. Follow CDC recommendations for supplemental testing.Order confirmation testing: HCV Quant by PCR testing - HCVPCR #[id number] Non Reactive: < 0.8 Equivocal: >/= 0.8 to < 1.0 Reactive: >/= 1.0The CDC requires that a reactive/equivocal HCV antibody result be sent out for confirmation. HCV Quant by PCR testing. Immature granulocytes/100 WB C Auto (Bld)Ordered By: Jocelyn Malcolm on 08-04-2024 Immature granulocytes/100 WBC (Bld) 0.300 % 0.0-0.9 [facility] Comment on above: IG% - Immature Granu locytes (promyelocytes, myelocytes and metamyelocytes) > 1% indicates that a LEFT SHIFT is Present. L3890.6006on 08-04-2024 HIV Non-Reactive Normal Nonreactive [facility] Comment on above: Result Comment: Non- Reactive Reactive Repeatedly reactive samples must be confirmed according to CDC recommended confirmatory algorithms. The subresults for either HIVAG or AHIV can be used as an aid in the selection of the confirmation algorithm for reactive samples. Send out specimens with Reactive results to [facility] for confirmation. Order the HIV antibody detection and differentiation: lc#[id number] Performed By: #### B TS, L3890.6301, L100.0100, L509.4006, L500.4050, L3890.6006, L509.8002, L3890.6102, L501.9985 ####[facility] [address] [facility] [place], [place], [address] L3890.6102on 08-04-2024 HEP B Surf Ag Non-Reactive Normal Nonreactive [facility] Comment on above: Result Comment: Reac tive: Presumptive evidence of HBV. Repeatedly reactive samples must be confirmed using a neutralization test ([employer] HBsAg Confirmatory Test) Non-Reactive: HBsAg not detected; does not exclude the possibility of exposure to HBV Performed By: #### B TS, L3890.6301, L100.0100, L509.4006, L500.4050, L3890.6006, L509.8002, L3890.6102, L501.9985 ####[facility] [address] [facility]. [place], [place], [id number] L3890.6301on 08-04-2024 Hepatitis C Ab Non-Reactive Normal Nonreactive [facility] Comment on above: Result Comment: Reac tive: Presumptive evidence of antibodies to HCV. Follow CDC recommendations for supplemental testing. Non-Reactive: Antibodies to HCV were not detected; does not exclude the possibility of exposure to HCV Reactive Results are presumptive evidence of antibodies to HCV. Follow CDC recommendations for supplemental testing. Order confirmation testing: HCV Quant by PCR testing - HCVPCR lc#[id number] Non Reactive: < 0.8 Equivocal: >/= 0.8 to < 1.0 Reactive: >/= 1.0 The [facility] requires that a reactive/equivocal HCV antibody result be sent out for confirmation. HCV Quant by PCR testing. Performed By: #### B TS, L3890.6301, L100.0100, L509.4006, L500.4050, L3890.6006, L509.8002, L3890.6102, L501.9985 ####[facility] [address] [facility]. [place], [place], [id number] L509.4006on 08-04-2024 Rubella IgG REAC Normal Nonreactive [facility] Comment on above: Result Comment: Anti body Result: Interpretation Non-Reactive: Non-Immune Reactive: Immune The following results were obtained with the [employer] Rubella IgG assay. Results from assays of other manufacturers cannot be used interchangeably. Performed By: #### B TS, L3890.6301, L100.0100, L509.4006, L500.4050, L3890.6006, L509.8002, L3890.6102, L501.9985 #### [facility] [address] [place], [place], [address] L509.8002on 08-04-2024 Syphilis Abs Non-Reactive Normal Nonreactive [facility] Comment on above: Performed By: #### B TS, L3890.6301, L100.0100, L509.4006, L500.4050, L3890.6006, L509.8002, L3890.6102, L501.9985 ####[facility] [address] [place], [place], [address] Laboratory - Chemistry and C hemistry - challengeOrdered By: Jocelyn Malcolm on 08-04-2024 AST [Catalytic activity/Vol] 13 U/L <32 [facility] Laboratory - Chemistry and C hemistry - challengeOrdered By: Isabel Luz on 08-04-2024 Glucose Ql (U) Negative [facility] Laboratory - Microbiology an d Antimicrobial susceptibilityOrdered By: Jocelyn Malcolm on 08-04-2024 HBV surface Ag Ql (S) Non-Reactive Nonreactive [facility] Comment on above: Reactive: Presumptiv e evidence of HBV. Repeatedly reactive samples must be confirmed using a neutralization test ([employer] HBsAg Confirmatory Test)Non-Reactive: HBsAg not detected; does not exclude the possibility of exposure to HBV Laboratory - UrinalysisOrder ed By: Isabel Luz on 08-04-2024 Protein Ql (U) Negative [facility] Lymphocytes Auto (Unsp spec) [#/Vol]Ordered By: Jocelyn Malcolm on 08-04-2024 Lymphocytes (Bld) [#/Vol] 2.39 10*3/uL 0.83-4.51 [facility] Lymphocytes/100 WBC Auto (Un sp spec)Ordered By: Jocelyn Malcolm on 08-04-2024 Lymphocytes/100 WBC (Bld) 22.8 % 19-41 [facility] MCV (mean corpuscular volume ) determinationOrdered By: Jocelyn Malcolm on 08-04-2024 MCV (RBC) [Entitic vol] 88.2 fL 81-99 [facility] Mean corpuscular hemoglobin (MCH) determinationOrdered By: Jocelyn Malcolm on 08-04-2024 MCH (RBC) [Entitic mass] 28.4 pg 27.0-32.0 [facility] Mean corpuscular hemoglobin concentration (MCHC) determinationOrdered By: Jocelyn Malcolm on 08-04-2024 MCHC (RBC) [Mass/Vol] 32.2 g/dL 32-36 [facility] Mean platelet volume determi nationOrdered By: Jocelyn Malcolm on 08-04-2024 Platelet mean volume (Bld) [Entitic vol] 10.4 fL 6.2-12.0 [facility] Monocyte percentageOrdered B y: Jocelyn Malcolm on 08-04-2024 Monocytes/100 WBC (Bld) 7.5 % 0-10 [facility] Neutrophil percentageOrdered By: Jocelyn Malcolm on 08-04-2024 Neutrophils/100 WBC (Bld) 68.0 % 47-70 [facility] No Panel InformationOrdered By: Jocelyn Malcolm on 08-04-2024 HIV (1&2) Antibody Non-Reactive Nonreactive [facility] Comment on above: Non-ReactiveReactive Repeatedly reactive samples must be confirmed according to CDC recommended confirmatory algorithms. The subresults for either HIVAG or AHIV can be used as an aid in the selection of the confirmation algorithm for reactive samples.Send out specimens with Reactive results to [facility] for confirmation.Order the HIV antibody detection and differentiation: #[id number] Nucleated red blood cell per centageOrdered By: Jocelyn Malcolm on 08-04-2024 Nucleated RBC/100 WBC (Bld) [Ratio] 0 % 0-5 [facility] Telecommunications Field Technician Office Visit Reporton 08-04-2024 Telecommunications Field Technician Office Visit Report [facility]'[address], [address] [place] [address] OFFICE VISIT Date of Service: 08/04/24 MR#: [id number] Acct: [id number] Name: AYE WEIR Rep #: [id number] : 1995 Provider: Dr. 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[employer] pets and animals: No history of recent travel: No sexually active: Yes Smoking Status: Never smoker alcohol intake: never substance use type: does not use well-balanced diet: daily or most days caffeine: No eating out: 1-3 times/week during the past year weight has: decreased > 10 lbs what type of physical activity do you participate in: none lupis/anabaptist: None seatbelt use: sometimes do you feel safe at home: Yes additional social history: Boyfriend- Gretchen- Works at the [employer] History 4 Elective abortions Hx Para 3 Spontaneous abortions Hx # Term Pregnancies Ectopic pregnancies Hx # Pregnancies Multiple births # of living children 3 Past Pregnancies Del. Date Name GA/Weeks Outcome Route Bth Weight Gen Labor Lgth Anesthesia Del Locatn Provider FOB 08/21/16 Gracelynn 39 live - full term 9# Female epidural S [facility] Dr. Aaron Almanza 05/05/19 [place] 39 live - full term 8#1oz Male none Yazidichaitanya Almanza 06/06/20 Melissa 38 live - full term 9#6oz Male epidural [facility] Dr. Castillo Almanza Delivery Date: 05/05/19 Last [...] 175 -?? (more content not included)... Normal [facility] Platelet countOrdered By: Robert Malcolm on 08-04-2024 Platelets (Bld) [#/Vol] 285 10*3/uL 150-450 [facility] Potassium (Unsp spec) [Mass/ Vol]Ordered By: Jocelyn Malcolm on 08-04-2024 Potassium [Moles/Vol] 4.1 mmol/L 3.3-5.1 [facility] Potassium measurement (mass/ volume)Ordered By: Jocelyn Malcolm on 08-04-2024 Potassium (Unsp spec) [Mass/Vol] 4.1 mmol/L 3.3-5.1 [facility] RBC Auto (Bld) [#/Vol]Ordere d By: Jocelyn Malcolm on 08-04-2024 RBC (Bld) [#/Vol] 3.73 10*6/uL Low 4.2-5.4 [facility] Rubella immune status determ ination by IgG antibody assayOrdered By: Jocelyn Malcolm on 08-04-2024 Rubella IgG Antibody REAC Nonreactive [facility] Comment on above: Antibody Result: Int erpretationNon-Reactive: Non-ImmuneReactive: ImmuneThe following results were obtained with the [employer] Rubella IgG assay. Results from assays of other manufacturers cannot be used interchangeably. Serum creatinine measurement (mass/volume)Ordered By: Jocelyn Malcolm on 08-04-2024 Creatinine [Mass/Vol] 0.56 mg/dL Low 0.70-1.20 [facility] Serum globulin measurementOr dered By: Jocelyn Malcolm on 08-04-2024 Globulin (S) [Mass/Vol] 3.0 g/dL 2.2-4.2 [facility] Serum glucose measurement (m ass/volume)Ordered By: Jocelyn Malcolm on 08-04-2024 Glucose [Mass/Vol] 76 mg/dL 70-99 [facility] Serum or plasma alanine machado otransferase (ALT) measurementOrdered By: Jocelyn Malcolm on 08-04-2024 ALT [Catalytic activity/Vol] 10 U/L <35 [facility] Serum or plasma albumin shailesh urement (mass/volume)Ordered By: Jocelyn Malcolm on 08-04-2024 Albumin [Mass/Vol] 3.6 g/dL 3.5-5.0 [facility] Serum or plasma albumin/glob ulin mass ratioOrdered By: Jocelyn Malcolm on 08-04-2024 Albumin/Globulin [Mass ratio] 1.2 {ratio} 0.9-2.4 [facility] Serum or plasma alkaline andres sphatase measurementOrdered By: Jocelyn Malcolm on 08-04-2024 ALP [Catalytic activity/Vol] 65 U/L 35-104 [facility] Serum or plasma calcium shailesh urement (mass/volume)Ordered By: Jocelyn Malcolm on 08-04-2024 Calcium [Mass/Vol] 8.9 mg/dL 7.6-11.0 [facility] Serum or plasma urea nitroge n measurement (mass/volume)Ordered By: Jocelyn Malcolm on 08-04-2024 Urea nitrogen [Mass/Vol] 10 mg/dL 4-19 [facility] Sodium levelOrdered By: Rosi Malcolm on 08-04-2024 Sodium [Moles/Vol] 137 mmol/L 133-145 [facility] T. pallidum abOrdered By: Robert Malcolm on 08-04-2024 Syphilis Total Antibody Non-Reactive Nonreactiv e [facility] Total proteinOrdered By: Tucker Malcolm on 08-04-2024 Protein [Mass/Vol] 6.6 g/dL 5.9-8.4 [facility] Type AND Screenon 08-04-2024 Ab SCREEN GEL Negative Normal [facility] Comment on above: Order Comment: PN Performed By: #### B TS, L3890.6301, L100.0100, L509.4006, L500.4050, L3890.6006, L509.8002, L3890.6102, L501.9985 #### [facility] [address] [place], [address] White blood cell (WBC) count Ordered By: Jocelyn Malcolm on 08-04-2024 WBC (Bld) [#/Vol] 10.5 10*3/uL 4.4-11.0 [facility] Laboratory - Chemistry and C hemistry - challengeOrdered By: Adelaida Marcelo on 07-11-2024 Glucose Ql (U) Negative [facility] Laboratory - UrinalysisOrder ed By: Adelaida Marcelo on 07-11-2024 Protein Ql (U) Negative [facility] Telecommunications Field Technician Office Visit Reporton 07-11-2024 Telecommunications Field Technician Office Visit Report [facility]'s [address], [address] [place] [address] OFFICE VISIT Date of Service: 07/11/24 MR#: [id number] Acct: [id number] Name: AYE WEIR Rep #: [id number] : 1995 Provider: Dr. 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[facility] [employer] pets and animals: No history of recent travel: No sexually active: Yes Smoking Status: Never smoker alcohol intake: never substance use type: does not use well-balanced diet: daily or most days caffeine: No eating out: 1-3 times/week during the past year weight has: decreased > 10 lbs what type of physical activity do you participate in: none lupis/anabaptist: None seatbelt use: sometimes do you feel safe at home: Yes additional social history: Boyfriend- Gretchen- Works at the [employer] History 4 Elective abortions Hx Para 3 Spontaneous abortions Hx # Term Pregnancies Ectopic pregnancies Hx # Pregnancies Multiple births # of living children 3 Past Pregnancies Del. Date Name GA/Weeks Outcome Route Bth Weight Infant Gen Labor Lgth Anesthesia Del Locatn Provider FOB 08/21/16 [place] 39 live - full term 9# Female epidural S [facility] Dr. Aaron Almanza 05/05/19 [place] 39 live - [facility] Melissa 38 live - full term 9#6oz Male epidural [facility] Dr. Castillo Almanza Delivery Date: 05/05/19 Last [...] on Metoprol (more content not included)... Normal [facility] Chlamydia/GC TIFFANIE aptimaon CHLAMY,NUC ACID Negative Normal Negative [facility] Comment on above: Performed By: #### M 100.2200, L501.0900, L7000.1800 ####[facility] [address] [place], [address] GC BY NUC ACID Negative Normal Negative [facility] Comment on above: Result Comment: Perf ormed at: =G - [facility] [address] [id number] Assembly Operator: Dali Krueger MD, Phone: [phone] Performed By: #### M 100.2200, L501.0900, L7000.1800 ####[facility] [address] [place], [address] Urine Cultureon 06-10-2024 URC Culture exhibits no growth. Normal [facility] Comment on above: Performed By: #### M 100.2200, L501.0900, L7000.1800 ####[facility] [address] [place], [address] C. trachomatis rRNA TIFFANIE+prob e Ql (Unsp spec)Ordered By: Jocelyn Malcolm on 06-09-2024 Chlamydia DNA (TIFFANIE) Negative Negative [facility] Neisseria gonorrhoeae nuclei c acid detection by amplified probe techniqueOrdered By: Jocelyn Malcolm on 06-09-2024 N. gonorrhoeae DNA TIFFANIE+probe Ql (Unsp spec) Negative Negative [facility] Comment on above: Performed at: =G - [facility] [address] [id number] Director: Dali Krueger MD, Phone: [phone] Telecommunications Field Technician Office Visit Reporton 06-09-2024 Telecommunications Field Technician Office Visit Report [address], [address] [place] [address] OFFICE VISIT Date of Service: 06/09/24 MR#: [id number] Acct: [id number] Name: AYE WEIR Rep #: [id number] 6 : 1995 Provider: IRCKY Trivedi ams Age/Sex: 29/F Location: [facility] [place] Status: Signed Intake Vital Signs 06/09/24 11:31 Height 5 ft 6 in Weight: 203 lb BMI 32.8 BP 111/73 Intake Visit Reasons: LMP 11 DOMONIQUE 01/06 Sugar Coating Hand Required: No Is patient in pain?: No [...] mg-folate no.1 1 mg-dha 300 mg capsule (PNV-[place]) Last Menstrual Period: 04/01/24 Zika: Zika virus [...] occupational status: employed 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[facility] [employer] pets and animals: No history of recent travel: No sexually active: Yes Smoking Status: Never smoker alcohol intake: never substance use type: does not use well-balanced diet: daily or most days caffeine: No eating out: 1-3 times/week during the past year weight has: decreased > 10 lbs what type of physical activity do you participate in: none lupis/anabaptist: None seatbelt use: sometimes do you feel safe at home: Yes additional social history: Boyfriend- Gretchen- Works at the [employer] History 4 Elective abortions Hx Para 3 Spontaneous abortions Hx # Term Pregnancies Ectopic pregnancies Hx # Pregnancies Multiple births # of living children 3 Past Pregnancies Del. Date Name GA/Weeks Outcome Route Bth Weight Infant Gen Labor Lgth Anesthesia Del Locatn Provider FOB 08/21/16 Gracelynn 39 live - full term 9# Female epidural S [facility] Dr. Aaron Almanza 05/05/19 [place] 39 live - full term 8#1oz Male [facility] Castillo Almanza 06/06/20 [place] 38 live - full term 9#6oz Male epidural [facility] Dr. Castillo Almanza Delivery Date: 05/05/19 Last [...] -???-???-???-???-???-??? -???-???-???-???-? (more content not included)... Normal [facility] Protein+Creatinine Ratio,Uri neon 06-09-2024 PROT:CRE RATIO 84 mg/g CRE Normal 0-200 [facility] Comment on above: Performed By: #### M 100.2200, L501.0900, L7000.1800 ####[facility] [address] [place], [address] Protein (U) [Mass/Vol] 14.1 mg/dL High <11.9 [facility] Comment on above: Performed By: #### M 100.2200, L501.0900, L7000.1800 ####[facility] [address] [place], [address] UR CREAT 168.00 mg/dL Normal NO RANGE EST. [facility] Comment on above: Performed By: #### M 100.2200, L501.0900, L7000.1800 ####[facility] [address] [place], [address] Protein/Creatinine (U) [Mass ratio]Ordered By: Jocelyn Malcolm on 06-09-2024 Urine Protein/Creatinine Ratio 84 mg/g CRE 0-200 [facility] Random urine protein measure mentOrdered By: Jocelyn Malcolm on 06-09-2024 Protein (U) [Mass/Vol] 14.1 mg/dL High 0.0-11.8 [facility] Urine creatinine measurement (mass/volume)Ordered By: Jocelyn Malcolm on 06-09-2024 Creatinine (U) [Mass/Vol] 168.00 mg/dL NO RANGE EST. [facility] Urine cultureOrdered By: Tucker Malcolm on 06-09-2024 Bacteria identified Cx Nom (U) Culture exhibits no growth. [facility] ABO and Rh group panel (Bld) on 05-17-2024 ABO group Nom (Bld) A Normal [facility] Comment on above: Performed By: #### 3 4530-6 #### RONALD ROBLES (43854) [facility] ([facility]) [address] [place] [address] D Ag Ql (Bld) Positive [facility] Comment on above: Performed By: #### 3 4530-6 #### RONALD ROBLES (79074) [facility] ([facility]) [address] [place] [address] Bacteria identifiedon 2023 Bacteria identified Cx Nom (U) Test: Urine Culture Specimen Source: Clean Catch/Voided Specimen Type: Urine Specimen Date: 05/17/2024 1025 Result Date: 05/18/2024 1440 Result Status: Final result Abnormal: No Resulting Lab: [facility] [address] [id number] CULTURE Growth indicates contamination with periurethral daphne. Repeat culture if clinically indicated. [facility] Comment on above: Performed By: #### 6 30-4 #### MARCIA Dodd (69772) [facility] ([facility]) [address] [place] [address] CBC panel Auto (Bld)on 05-17 Erythrocyte distribution width (RBC) [Ratio] 13.2 % Normal 11.5-14.5 [facility] Comment on above: Performed By: #### 5 8410-2 #### RONALD ROBLES (68853) [facility] ([facility]) [address] [place] [address] 07887 Hematocrit (Bld) [Volume fraction] 34.5 % Low 36.0-46.0 [facility] Comment on above: Performed By: #### 5 8410-2 #### RONALD ROBLES (38591) [facility] ([facility]) [address] [place] [address] 91879 Hemoglobin (Bld) [Mass/Vol] 11.4 g/dL Low 12.0-16.0 [facility] Comment on above: Performed By: #### 5 8410-2 #### RONALD ROBLES (54537) [facility] ([facility]) [address] [place] [address] 47076 MCH (RBC) [Entitic mass] 28.4 pg Normal 26.0-34.0 [facility] Comment on above: Performed By: #### 5 8410-2 #### RONALD ROBLES (83126) [facility] ([facility]) [address] [place] [address] 82653 MCHC (RBC) [Mass/Vol] 33.0 g/dL Normal 32.0-36.0 [facility] Comment on above: Performed By: #### 5 8410-2 #### RONALD ROBLES (48491) [facility] ([facility]) [address] [place] [address] 76043 MCV (RBC) [Entitic vol] 86 fL Normal 80-100 U [facility] Comment on above: Performed By: #### 5 8410-2 #### RONALD ROBLES (21262) [facility] ([facility]) [address] [place] [address] 43309 Nucleated RBC/100 WBC (Bld) [Ratio] 0.0 /100 WBCs Normal 0.0-0.0 [facility] Comment on above: Performed By: #### 5 8410-2 #### RONALD ROBLES (39449) [facility] ([facility]) [address] [place] [address] 26963 Platelets (Bld) [#/Vol] 296 x10*3/uL Normal 150-450 [facility] Comment on above: Performed By: #### 5 8410-2 #### RONALD ROBLES (36886) [facility] ([facility]) [address] [place] [address] 73689 RBC (Bld) [#/Vol] 4.02 x10*6/uL Normal 4.00-5.20 [facility] Comment on above: Performed By: #### 5 8410-2 #### RONALD ROBLES (11020) [facility] ([facility]) [address] [place] [address] 65447 WBC (Bld) [#/Vol] 7.4 x10*3/uL Normal 4.4-11.3 [facility] Comment on above: Performed By: #### 5 8410-2 #### RONALD ROBLES (22181) [facility] ([facility]) [address] [place] [address] 51894 Choriogonadotropin.beta subu niton 05-17-2024 [place] [address] m[IU]/mL High <5 U [facility] Comment on above: Order Comment: Total HCG measurement is performed using the Delvis Dominic Access Immunoassay which detects intact HCG and free beta HCG subunit. This test is not indicated for use as a tumor marker. HCG testing is performed using a different test methodology at [facility] than other physicians & surgeons hospital. Direct result comparison should only be made [...] By: #### 2 1198-7 #### RONALD ROBLES (35169) [facility] ([facility]) [address] [place] [address] Comprehensive metabolic 2000 panelon 05-17-2024 Albumin BCP dye [Mass/Vol] 4.0 g/dL Normal 3.4-5.0 [facility] Comment on above: Performed By: #### 2 4323-8 #### RONALD ROBLES (69131) [facility] ([facility]) [address] [place] [address] ALP [Catalytic activity/Vol] 54 U/L Normal 33-110 [facility] Comment on above: Performed By: #### 2 4323-8 #### RONALD ROBLES (45248) [facility] ([facility]) [address] [place] [address] 63366 ALT With P-5'-P [Catalytic activity/Vol] 7 U/L Normal 7-45 [facility] Comment on above: Result Comment: Jodi ents treated with Sulfasalazine may generate falsely decreased results for ALT. Performed By: #### 2 4323-8 #### RONALD ROBLES (66674) [facility] ([facility]) [address] [place] [address] 51723 Anion gap [Moles/Vol] 12 mmol/L Normal 10-20 [facility] Comment on above: Performed By: #### 2 4323-8 #### RONALD ROBLES (07668) [facility] ([facility]) [address] [place] [address] 48547 AST With P-5'-P [Catalytic activity/Vol] 9 U/L Normal 9-39 [facility] Comment on above: Performed By: #### 2 4323-8 #### RONALD ROBLES (95112) [facility] ([facility]) [address] [place] [address] 31192 Bilirubin [Mass/Vol] 0.3 mg/dL Normal 0.0-1.2 [facility] Comment on above: Performed By: #### 2 4323-8 #### RONALD ROBLES (84144) [facility] ([facility]) [facility] [place] [address] Calcium [Mass/Vol] 8.7 mg/dL Normal 8.6-10.3 [facility] Comment on above: Performed By: #### 2 4323-8 #### RONALD ROBLES (89317) [facility] ([facility]) [address] [place] [address] Chloride [Moles/Vol] 107 mmol/L Normal 98-107 [facility] Comment on above: Performed By: #### 2 4323-8 #### RONALD ROBLES (88197) [facility] ([facility]) [address] [place] [address] 78335 CO2 [Moles/Vol] 21 mmol/L Normal 21-32 [facility] Comment on above: Performed By: #### 2 4323-8 #### RONALD ROBLES (95164) [facility] ([facility]) [address] [place] [address] 29245 Creatinine [Mass/Vol] 0.62 mg/dL Normal 0.50-1.05 [facility] Comment on above: Performed By: #### 2 4323-8 #### RONALD ROBLES (39843) [facility] ([facility]) [address] [place] [address] 45883 GFR/1.73 sq M.predicted MDRD (S/P/Bld) [Vol rate/Area] mL/min/{1.73_m2} Normal >60 [facility] Comment on above: Result Comment: Calc ulations of estimated GFR are performed using the 2020 CKD-EPI Study Refit equation without the race variable for the IDMS-Traceable creatinine methods. https://jasn.asnjournals.org/content/early//ASN.2020 530944 Performed By: #### 2 4323-8 #### RONALD ROBLES (38932) [facility] ([facility]) [address] [place] [address] Glucose [Mass/Vol] 98 mg/dL Normal 74-99 [facility] Comment on above: Performed By: #### 2 4323-8 #### RONALD ROBLES (81853) [facility] ([facility]) [address] [place] [address] Potassium [Moles/Vol] 3.9 mmol/L Normal 3.5-5.3 [facility] Comment on above: Performed By: #### 2 4323-8 #### RONALD ROBLES (97993) [facility] ([facility]) [address] [place] [address] 12279 Protein [Mass/Vol] 6.5 g/dL Normal 6.4-8.2 [facility] Comment on above: Performed By: #### 2 4323-8 #### RONALD ROBLES (56805) [facility] ([facility]) [address] [place] [address] Sodium [Moles/Vol] 136 mmol/L Normal 136-145 [facility] Comment on above: Performed By: #### 2 4323-8 #### RONALD ROBLES (19575) [facility] ([facility]) [address] [place] [address] Urea nitrogen [Mass/Vol] 14 mg/dL Normal 6-23 [facility] Comment on above: Performed By: #### 2 4323-8 #### RONALD ROBLES (06389) [facility] ([facility]) [address] [place] [address] 67752 US PELVIS OB TRANSABDOMINAL W TRANSVAGINAL UP TO 1ST TRIMESTERon 05-17-2024 US PELVIS OB TRANSABDOMINAL W TRANSVAGINAL UP TO 1ST TRIMESTER Interpreted By: Vick Forrest, STUDY: US PELVIS OB TRANSABDOMINAL W TRANSVAGINAL UP TO 1ST TRIMESTER; 05/17/2024 11:29 am INDICATION: Signs/Symptoms:right groin pain; history of ectopic. COMPARISON: None. ACCESSION NUMBER(S): [id number] ORDERING CLINICIAN: SAMANTHA LEHMAN TECHNIQUE: Multiple images [...] Vick Forrest 05/17/2024 12:00 PM Dictation workstation: [id number] Normal [facility] Urinalysis complete W Reflex Culture panel (U)on 05-17-2024 Appearance (U) Turbid Normal Clear [facility] Comment on above: Performed By: #### 5 8077-9 #### RONALD ROBLES (20483) [facility] ([facility]) [address] [place] [address] 00066 Bilirubin (U) [Mass/Vol] Negative Normal NEGATIVE [facility] Comment on above: Performed By: #### 5 8077-9 #### RONALD ROBLES (91284) [facility] ([facility]) [address] [place] [address] 09685 Color (U) Yellow Normal Light-Yellow , Yellow, Dark-Yellow [facility] Comment on above: Performed By: #### 5 8077-9 #### RONALD ROBLES (31124) [facility] ([facility]) [address] [place] [address] 81895 Glucose Auto test strip (U) [Mass/Vol] Normal Normal Normal [facility] Comment on above: Performed By: #### 5 8077-9 #### RONALD ROBLES (45226) [facility] ([facility]) [address] [place] [address] 79300 Ketones (U) [Mass/Vol] Negative Normal NEGATIVE [facility] Comment on above: Performed By: #### 5 8077-9 #### RONALD ROBLES (93922) [facility] ([facility]) [address] [place] [address] 28658 Leukocyte esterase Auto test strip Ql (U) 500 Lilli/???L Abnormal NEGATIVE [facility] Comment on above: Performed By: #### 5 8077-9 #### RONALD ROBLES (07600) [facility] ([facility]) [address] [place] [address] 22476 Nitrite Auto test strip Ql (U) Negative Normal NEGATIVE [facility] Comment on above: Performed By: #### 5 8077-9 #### RONALD ROBLES (14534) [facility] ([facility]) [address] [place] [address] 92051 pH (U) 6.5 [pH] Normal 5.0, 5.5, 6.0, 6.5, 7.0, 7.5, 8.0 [facility] Comment on above: Performed By: #### 5 8077-9 #### RONALD ROBLES (71827) [facility] ([facility]) [address] [place] [address] Protein (U) [Mass/Vol] 30 (1+) Abnormal NEGAT JERSEY, 10 (TRACE), 20 (TRACE) [facility] Comment on above: Performed By: #### 5 8077-9 #### RONALD ROBLES (68245) [facility] ([facility]) [address] [place] [address] 81469 RBC (U) [#/Vol] Negative Normal NEGATIVE [facility] Comment on above: Performed By: #### 5 8077-9 #### RONALD ROBLES (31463) [facility] ([facility]) [address] [place] [address] 59825 Specific gravity (U) [Rel density] 1.033 Normal 1.005-1.035 [facility] Comment on above: Performed By: #### 5 8077-9 #### RONALD ROBLES (11775) [facility] ([facility]) [address] [place] [address] 36035 Urobilinogen (U) [Mass/Vol] 4 (2+) Abnormal Normal [facility] Comment on above: Result Comment: Some pigments and medications may cause a false positive urobilinogen. Performed By: #### 5 8077-9 #### RONALD ROBLES (50909) [facility] ([facility]) [address] [place] [address] Urinalysis microscopic panel Auto Ql (U)on 05-17-2024 Bacteria Auto (Urine sed) [#/Area] 1+ /HPF Abnormal NONE SEEN [facility] Comment on above: Performed By: #### 5 3315-8 #### RONALD ROBLES (90018) [facility] ([facility]) [address] [place] [address] Epithelial cells.squamous Auto (Urine sed) [#/Area] 1-9 (SPARSE) Normal Reference range not established. [facility] Comment on above: Performed By: #### 5 3315-8 #### RONALD ROBLES (64305) [facility] ([facility]) [address] [place] [address] Leukocyte clumps Auto (Urine sed) [#/Area] RARE Normal Reference range not established. [facility] Comment on above: Performed By: #### 5 3315-8 #### RONALD ROBLES (40040) [facility] ([facility]) [address] [place] [address] Mucus Auto (Urine sed) [#/Area] 4+ /LPF Normal Reference range not established. [facility] Comment on above: Performed By: #### 5 3315-8 #### RONALD ROBLES (63610) [facility] ([facility]) [address] [place] [address] RBC Auto (Urine sed) [#/Area] >20 Abnormal NONE, 1-2, 3-5 [facility] Comment on above: Performed By: #### 5 3315-8 #### RONALD ROBLES (01740) [facility] ([facility]) [address] [place] [address] WBC Auto (Urine sed) [#/Area] >50 Abnormal 1-5, NONE [facility] Comment on above: Performed By: #### 5 3315-8 #### RONALD ROBLES (55877) [facility] ([facility]) [address] [place] [address] Bacteria identifiedon 2023 Bacteria identified Cx Nom (U) Test: Urine Culture Specimen Source: Clean Catch/Voided Specimen Type: Urine Specimen Date: 05/13/2024951 Result Date: 05/15/2024851 Result Status: Final result Abnormal: No Resulting Lab: [facility] [address] [place], [place] [address] CULTURE Clinically insignificant growth based on current clinical standards. [facility] Comment on above: Performed By: #### 6 30-4 #### MARCIA Dodd (08365) [facility] ([facility]) [address] [place] [address] Blood type and Indirect anti body screen panel (Bld)on 05-13-2024 ABO group Nom (Bld) A Normal [facility] Comment on above: Performed By: #### 3 4532-2 #### RONALD ROBLES (23452) [facility] ([facility]) [address] [place] [address] Blood group antibody screen Ql Negative [facility] Comment on above: Performed By: #### 3 4532-2 #### RONALD ROBLES (96863) [facility] ([facility]) [address] [place] [address] [place] D Ag Ql (Bld) Positive [facility] Comment on above: Performed By: #### 3 4532-2 #### RONALD ROBLES (74945) [facility] ([facility]) [address] [place] [address] US C. trachomatis and N. gonorr hoeae DNA TIFFANIE+probe Nom (Unsp spec)on 05-13-2024 C. trachomatis rRNA TIFFANIE+probe Ql (Unsp spec) Negative Normal Negative [facility] Comment on above: Order Comment: [...] By: #### 3 6903-3 #### MARCIA Dodd (91619) [facility] ([facility]) [address] [place] [address] 51794 N. gonorrhoeae DNA Probe+sig amp Ql (Unsp spec) Negative Normal Negative [facility] Comment on above: Order Comment: The [...] By: #### 3 6903-3 #### MARCIA Dodd (36205) [facility] ([facility]) [address] [place] [address] 83948 CBC panel Auto (Bld)on 05-13 Erythrocyte distribution width (RBC) [Ratio] 13.2 % Normal 11.5-14.5 [facility] Comment on above: Performed By: #### 5 8410-2 #### RONALD ROBLES (09986) [facility] ([facility]) [address] [place] [address] 11799 Hematocrit (Bld) [Volume fraction] 35.1 % Low 36.0-46.0 [facility] Comment on above: Performed By: #### 5 8410-2 #### RONALD ROBLES (07743) [facility] ([facility]) [address] [place] [address] 95914 Hemoglobin (Bld) [Mass/Vol] 11.3 g/dL Low 12.0-16.0 [facility] Comment on above: Performed By: #### 5 8410-2 #### RONALD ROBLES (14713) [facility] ([facility]) [address] [place] [address] 08328 MCH (RBC) [Entitic mass] 27.9 pg Normal 26.0-34.0 [facility] Comment on above: Performed By: #### 5 8410-2 #### RONALD ROBLES (24457) [facility] ([facility]) [address] [place] [address] 39866 MCHC (RBC) [Mass/Vol] 32.2 g/dL Normal 32.0-36.0 [facility] Comment on above: Performed By: #### 5 8410-2 #### RONALD ROBLES (53395) [facility] ([facility]) [address] [place] [address] 12427 MCV (RBC) [Entitic vol] 87 fL Normal 80-100 U [facility] Comment on above: Performed By: #### 5 8410-2 #### RONALD ROBLES (93316) [facility] ([facility]) [address] [place] [address] 35141 Nucleated RBC/100 WBC (Bld) [Ratio] 0.0 /100 WBCs Normal 0.0-0.0 [facility] Comment on above: Performed By: #### 5 8410-2 #### RONALD ROBLES (60422) [facility] ([facility]) [address] [place] [address] 21233 Platelets (Bld) [#/Vol] 319 x10*3/uL Normal 150-450 [facility] Comment on above: Performed By: #### 5 8410-2 #### RONALD ROBLES (09578) [facility] ([facility]) [address] [place] [address] 52940 RBC (Bld) [#/Vol] 4.05 x10*6/uL Normal 4.00-5.20 [facility] Comment on above: Performed By: #### 5 8410-2 #### RONALD ROBLES (79817) [facility] ([facility]) [address] [place] [address] 09104 WBC (Bld) [#/Vol] 7.1 x10*3/uL Normal 4.4-11.3 [facility] Comment on above: Performed By: #### 5 8410-2 #### RONALD ROBLES (34223) [facility] ([facility]) [address] [place] [address] Choriogonadotropin.beta subu niton 05-13-2024 [place] [address] m[IU]/mL High <5 U [facility] Comment on above: Order Comment: Total HCG measurement is performed using the Delvis Dominic Access Immunoassay which detects intact HCG and free beta HCG subunit. This test is not indicated for use as a tumor marker. HCG testing is performed using a different test methodology at [facility] than other physicians & surgeons hospital. Direct result comparison should only be made [...] By: #### 2 1198-7 #### RONALD ROBLES (05235) [facility] ([facility]) [facility] [place] [address] HIV 1+2 Ab+HIV1 p24 Agon HIV 1+2 Ab+HIV1 p24 Ag IA Ql Non-Reactive Normal Nonreactive [facility] Comment on above: Order Comment: HIV A g/Ab screen is performed using the Siemens Fertility FocusllUniPay HIV Ag/Ab Combo assay which detects the presence of HIV p24 antigen as well as antibodies to HIV-1 (Group M and O) and HIV-2. No laboratory evidence of HIV infection. If acute HIV infection is suspected, consider testing for HIV RNA by PCR (viral load). Performed By: #### 5 6888-1 #### MARCIA Dodd (48761) [facility] ([facility]) [address] [place] [address] HbA1c (Bld) [Mass fraction]o n 05-13-2024 Average glucose Estimated from glycated hemoglobin (Bld) [Mass/Vol] 100 mg/dL Normal Not Established [facility] Comment on above: Order Comment: Diagn osis of Diabetes-Adults Non-Diabetic: < or = 5.6% Increased risk for developing diabetes: 5.7-6.4% Diagnostic of diabetes: > or = 6.5% Performed By: #### 4 548-4 #### MARCIA Dodd (43479) [facility] ([facility]) [address] [place] [address] Hemoglobin A1c/Hemoglobin.to margareth 05-13-2024 HbA1c (Bld) [Mass fraction] 5.1 % Normal See comment [facility] Comment on above: Order Comment: Diagn osis of Diabetes-Adults Non-Diabetic: < or = 5.6% Increased risk for developing diabetes: 5.7-6.4% Diagnostic of diabetes: > or = 6.5% Performed By: #### 4 548-4 #### MARCIA Dodd (41644) [facility] ([facility]) [address] [place], [place] [address] Hepatitis B virus surface Ag on 05-13-2024 HBV surface Ag IA Ql Non-Reactive Normal Nonreactive U [facility] Comment on above: Result Comment: Biot in interference may cause falsely decreased results. Patients taking a Biotin dose of up to 5 mg/day should refrain from taking Biotin for 24 hours before sample collection. Providers may contact their local laboratory for further information. Performed By: #### 5 196-1 #### MARCIA Dodd (06294) [facility] ([facility]) [address] [place], [place] [address] Laboratory - Hematology and Cell countson 05-13-2024 HbA1c (Bld) [Mass fraction] 5.1 % [facility] Hematocrit (Bld) [Volume fraction] 35.1 % [facility] MCV (RBC) [Entitic vol] 87 fL [facility] No Panel Informationon 05-13 Chlamydia Comment Negative [facility] HIV Antigen/Antibody Interpretation Negative [facility] Neisseria gonorrhoeae Comment Negative [facility] Platelet Count (Clinic) 319 g/gL [facility] Rubella Interpretation Presumed Immune [facility] Syphilis Interpretation Non-Reactive [facility] REFLEX ADDED, ANEMIA PANELon 05-13-2024 REFLEX ADDED, ANEMIA PANEL No reflex. Normal [facility] Comment on above: Performed By: #### 7 4281-7 #### [facility] [place] ([id number]) [address] [place], [place] Rubella virus IgG IA Qnon Rubella virus IgG IA Ql Positive Normal Negative U [facility] Comment on above: Order Comment: NEGAT [...] By: #### 7 4281-7 #### VELMA DAILY ([id number]) [address] [facility] [address] [place], CT Rubella virus IgG Qn (S) 1.2 IA Normal <=0.7 IA [facility] Comment on above: Order Comment: NEGAT [place]: [...] By: #### 7 4281-7 #### QUEST ABIMBOLA ([id number]) [address] [facility] [address] [place], CT Treponema pallidum Ab.IgG+Ig Mon 05-13-2024 T. pallidum IgG+IgM IA Ql (S) Non-Reactive Normal Nonreactive [facility] Comment on above: Result Comment: No s ignificant level of Treponema pallidum antibody detected. Repeat testing in 2 to 4 weeks may be considered if early infection or incubating syphilis infection is suspected. Performed By: #### 7 4281-7 #### VELMA DAILY ([id number]) [address] [facility] ABDI DENTON Choriogonadotropin.beta subu niton 05-06-2024 HCG.beta subunit Qn 8188 m[IU]/mL High <5 [facility] Comment on above: Order Comment: Total HCG measurement is performed using the [employer] Dominic Access Immunoassay which detects intact HCG and free beta HCG subunit. This test is not indicated for use as a tumor marker. HCG testing is performed using a different test methodology at [facility] than [facility]. Direct result comparison should only be made [...] By: #### 2 1198-7 #### RONALD ROBLES ([id number]) [facility] ([facility]) [address] [place] [address] Choriogonadotropin.beta subu niton 03-07-2024 HCG.beta subunit Qn m[IU]/mL Normal <5 [facility] Comment on above: Order Comment: Total HCG measurement is performed using the Delvis Runnells Access Immunoassay which detects intact HCG and free beta HCG subunit. This test is not indicated for use as a tumor marker. HCG testing is performed using a different test methodology at [facility] than other [facility]. Direct result comparison should only be made within the same method. Performed By: #### 2 1198-7 #### RONALD ROBLES ([id number]) [facility] ([facility]) [address] [place] [address] Cervical AND or Vaginal cyto logy studyon 12-08-2023 Cytology Cervical or vaginal smear or scraping study Pathology report.total SEE COMMENT Gynecologic Cytology Case: [id number] Authorizing Provider: Jacquelyn Walker MD Collected: 12/08/2023 1542 Ordering Location: [facility] Received: 12/08/2023 1542 Office Building First Screen: S[place]A De [place] Specimen: ThinPrep Liquid-Based Pap-Imaging System Screen, CERVIX, [...] screened by SANTA De La Cruz at [facility] [id number] [place] [phone] By the signature on this report, the individual or group listed as making the Final Interpretation/Diagnosis certifies that they have reviewed this case. This specimen has been analyzed by the ThinPrep Imaging System ([employer] an automated imaging and review system, which assists the laboratory in evaluating cells on ThinPrep Pap tests. Following automated imaging, selected bennett from every slide were reviewed by a fresh meat grader and/or pathologist. Cervical cytology is a screening [...] QUESTION Yes Date last menstrual period 11/19/2023 Normal [facility] VITAMIN Aon 08-13-2023 VITAMIN A 39.5 Normal [facility] Comment on above: Result Comment: Refe rence range: 18.9 to 57.3 Unit: ug/dL (NOTE) Reference intervals for vitamin A determined from [facility] internal studies. Individuals with vitamin A less than 20 ug/dL are considered vitamin A deficient and those with serum concentrations less than 10 ug/dL are considered severely deficient. This test was developed and its performance characteristics determined by [facility]. It has not been cleared or approved by the Food and Drug Administration. PERFORMED AT [facility] Performed By: #### A CBC, FE2, LIP2, B12F ####Testing performed at [address] [address]#### LVITE, LVITA, NIR985, LCOPP, LZN ####Testing performed at [facility] VITAMIN Tay 08-13-2023 VITAMIN E ALPHA 10.5 Normal [facility] Comment on above: Result Comment: Refe rence range: 5.9 to 19.4 Unit: mg/L (NOTE) This test was developed and its performance characteristics determined by [facility]. It has not been cleared or approved by the Food and Drug Administration. Performed By: #### T SCC #### Testing performed at [address] [address] VITAMIN E GAMMA 2.2 Normal [facility] Comment on above: Result Comment: Refe rence range: 0.7 to 4.9 Unit: mg/L (NOTE) This test was developed and its performance characteristics determined by [facility]. It has not been cleared or approved by the Food and Drug Administration. Reference intervals for alpha and gamma-tocopherol determined from National Health and Nutrition Examination Survey, 1783-8984. Individuals with alpha-tocopherol levels less than 5.0 mg/L are considered vitamin E deficient. PERFORMED AT [facility] Performed By: #### T SCC #### Testing performed at [address] [address] VIT.B1 THIAMINE-BLDon 2023 VIT.B1 THIAMINE-BLD 132.6 Normal [facility] Comment on above: Result Comment: Refe rence range: 66.5 to 200.0 Unit: nmol/L (NOTE) This test was developed and its performance characteristics determined by [facility]. It has not been cleared or approved by the Food and Drug Administration. PERFORMED AT [facility] Performed By: #### L VB1 #### Testing performed at [facility] VIT D, 1,25 DIHYDROXon 08-09 VIT. D 1,25 36.5 Normal [facility] Comment on above: Result Comment: Refe rence range: 24.8 to 81.5 Unit: pg/mL PERFORMED AT [facility] Performed By: #### T SCC #### Testing performed at [address] [address] PLASMA ZINCon 08-08-2023 PLASMA ZINC 75 Normal [facility] Comment on above: Result Comment: Refe rence range: 44 to 115 Unit: ug/dL (NOTE) This test was developed and its performance characteristics determined by [facility]. It has not been cleared or approved by the Food and Drug Administration. Detection Limit = [address] [facility] Performed By: #### T SCC #### Testing performed at [address] [address] SERUM COPPERon 08-08-2023 SERUM COPPER 95 Normal [facility] Comment on above: Result Comment: Refe rence range: 80 to 158 Unit: ug/dL (NOTE) This test was developed and its performance characteristics determined by [facility]. It has not been cleared or approved by the Food and Drug Administration. Detection Limit = [address] [facility] Performed By: #### T SCC #### Testing performed at [address] [address] B12 FOLATEon 08-05-2023 Cobalamin (Vitamin B12) [Mass/Vol] 712 pg/mL Normal 239-931 [facility] Comment on above: Performed By: #### T SCC #### Testing performed at [address] [address] FOLATE 18.9 NG/ML Normal 2.56-20.0 [facility] Comment on above: Performed By: #### T SCC #### Testing performed at [address] [address] CBCon 08-05-2023 ABSOLUTE BAS 0.0 10*3/uL Normal 0.0-0.2 [facility] Comment on above: Performed By: #### T SCC #### Testing performed at [address] [address] ABSOLUTE EOS 0.1 10*3/uL Normal 0.0-0.7 [facility] Comment on above: Performed By: #### T SCC #### Testing performed at [address] [address] ABSOLUTE NEUTROPHIL COUNT 4.8 10*3/uL Normal 1.4-6.5 [facility] Comment on above: Performed By: #### T SCC #### Testing performed at [address] [address] Basophils/100 WBC (Bld) 0.4 % Normal 0.0-2.0 [facility] Comment on above: Performed By: #### T SCC #### Testing performed at [address] [place] [address] DTYPE AUTO DIFF Normal [facility] Comment on above: Performed By: #### T SCC #### Testing performed at [address] [address] Eosinophils/100 WBC (Bld) 1.4 % Normal 0.0-11.0 [facility] Comment on above: Performed By: #### T SCC #### Testing performed at [address] [address] Lymphocytes (Bld) [#/Vol] 3.5 10*3/uL High 1.2-3.4 [facility] Comment on above: Performed By: #### T SCC #### Testing performed at [address] [address] Lymphocytes/100 WBC (Bld) 38.6 % Normal 20.0-55.0 [facility] Comment on above: Performed By: #### T SCC #### Testing performed at [address] [address] Monocytes (Bld) [#/Vol] 0.6 10*3/uL Normal 0.0-0.7 [facility] Comment on above: Performed By: #### T SCC #### Testing performed at [address] [address] Monocytes/100 WBC (Bld) 6.8 % Normal 0.0-10.0 [facility] Comment on above: Performed By: #### T SCC #### Testing performed at [address] [address] Neutrophils/100 WBC (Bld) 52.8 % Normal 37.0-75.0 [facility] Comment on above: Performed By: #### T SCC #### Testing performed at [address] [address] Erythrocyte distribution width (RBC) [Ratio] 13.6 % Normal 11.5-14.5 [facility] Comment on above: Performed By: #### T SCC #### Testing performed at [address] [address] Hematocrit (Bld) [Volume fraction] 39.0 % Normal 36.0-48.0 [facility] Comment on above: Performed By: #### T SCC #### Testing performed at [address] [address] Hemoglobin (Bld) [Mass/Vol] 13.0 g/dL Normal 12.0-16.0 [facility] Comment on above: Performed By: #### T SCC #### Testing performed at [address] [address] MCH (RBC) [Entitic mass] 29.0 pg Normal 26.0-35.0 [facility] Comment on above: Performed By: #### T SCC #### Testing performed at [address] [address] MCHC (RBC) [Mass/Vol] 33.4 g/dL Normal 27.0-37.0 [facility] Comment on above: Performed By: #### T SCC #### Testing performed at [address] [address] MCV (RBC) [Entitic vol] 86.9 fL Normal 80.0-100.0 [facility] Comment on above: Performed By: #### T SCC #### Testing performed at [address] [address] Platelet mean volume (Bld) [Entitic vol] 8.4 fL Normal 7.4-11.0 [facility] Comment on above: Performed By: #### T SCC #### Testing performed at [address] [address] Platelets (Bld) [#/Vol] 362 10*3/uL Normal 130-400 [facility] Comment on above: Performed By: #### T SCC #### Testing performed at [address] [address] RBC (Bld) [#/Vol] 4.49 10*6/uL Normal 4.0-5.4 [facility] Comment on above: Performed By: #### T SCC #### Testing performed at [address] [address] WBC (Bld) [#/Vol] 9.1 10*3/uL Normal 3.6-11.0 [facility] Comment on above: Performed By: #### T SCC #### Testing performed at [address] [address] Hepatitis B virus surface Ab on 08-05-2023 HBV surface Ab Qn (S) 26.4 mIU/mL High <10.0 [facility] Comment on above: Result Comment: Inte rpretive Criteria: <10 mIU/mL Nonreactive >=10 mIU/mL Reactive Biotin interference may cause falsely decreased results. Patients taking a Biotin dose of up to 5 mg/day should refrain from taking Biotin for 24 hours before sample collection. Providers may contact their local laboratory for further information. Performed By: #### 1 6935-9 #### MARCIA Dodd ([id number]) [facility] ([facility]) [address] [place] [address] IRONon 08-05-2023 Iron [Mass/Vol] 43 ug/dL Normal 37-170 [facility] Comment on above: Performed By: #### T SCC #### Testing performed at [address] [address] LIPID PROFILEon 08-05-2023 Cholesterol [Mass/Vol] 185 mg/dL Normal 107-217 [facility] Comment on above: Performed By: #### T SCC #### Testing performed at [address] [address] Cholesterol in HDL [Mass/Vol] 47 mg/dL Normal 33-75 [facility] Comment on above: Performed By: #### T SCC #### Testing performed at [address] [address] Cholesterol in LDL [Mass/Vol] 111 mg/dL High <100 [facility] Comment on above: Performed By: #### T SCC #### Testing performed at [address] [address] Cholesterol in VLDL [Mass/Vol] 27 mg/dL High 5-25 [facility] Comment on above: Performed By: #### T SCC #### Testing performed at [address] [address] Cholesterol.total/Desirae sterol in HDL [Mass ratio] 3.94 {ratio} Normal [facility] Comment on above: Result Comment: RISK TOTAL/HDL RATIO MEN WOMEN 1/2 AVERAGE 3.43 3.27 AVERAGE 4.97 4.44 2X AVERAGE 9.55 7.05 3X AVERAGE 23.99 11.04 Performed By: #### T SCC #### Testing performed at [address] [address] Triglyceride [Mass/Vol] 133 mg/dL Normal 0-150 [facility] Comment on above: Performed By: #### T SCC #### Testing performed at [address] [address] M. tuberculosis stim IFN-g a nd spot count panel (Bld)on 08-05-2023 Gamma interferon negative control spot count (Bld) [#] Passed Normal [facility] Comment on above: Performed By: #### 7 4281-7 #### VELMA DAILY ([id number]) [address] [facility] [address] [place], CT M. tuberculosis stim IFN-g Ql (Bld) [Interp] Negative Normal Negative [facility] Comment on above: Result Comment: A [...] test. Performed By: #### 7 4281-7 #### QUEST MIKETL ([id number]) [address] [facility] Mitogen stimulated gamma interferon positive control spot count (Bld) [#] Passed [facility] Comment on above: Result Comment: For additional information, please refer to http://education.The V[employer] Net/faq/BRD601 (This link is being provided for informational/ educational purposes only.) Performed By: #### 7 4281-7 #### VELMA MCKEONTL ([id number]) [address] [address], CT PANEL A SPOT COUNT 0 [facility] Comment on above: Performed By: #### 7 4281-7 #### QUEST MIKETL ([id number]) [address] [facility] PANEL B SPOT COUNT 1 [facility] Comment on above: Performed By: #### 7 4281-7 #### QUEST MIKETL ([id number]) [address] [facility] BASIC METABOLIC PANELon 03-01 Anion gap [Moles/Vol] 9 mmol/L MMOL/L [facility] [employer] [facility] Calcium [Mass/Vol] 8.7 mg/dL [facility] Chloride [Moles/Vol] 105 mmol/L [facility] Comment on above: Please note: Triglyc eride levels of 600mg/dL or higher may positively bias chloride results by approximately 2.1 mmol CO2 [Moles/Vol] 24 mmol/L [facility] Creatinine [Mass/Vol] 0.68 mg/dL Low [facility] [employer] [facility] GFR COMMENT Average GFR for 20-2 9 years old = 116. [facility] Comment on above: Chronic Kidney disea se, GFR = <60. Kidney failure, GFR = <15. The GFR estimate is not adjusted for extreme body surface area or acute process, nor has it been validated for women or ethnic groups other than and . GFR/1.73 sq M.predicted among blacks MDRD (S/P/Bld) [Vol rate/Area] 133 mL/min/{1.73_m2} ml/min/1.73s q.m [facility] GFR/1.73 sq M.predicted among non-blacks MDRD (S/P/Bld) [Vol rate/Area] 110 mL/min/{1.73_m2} ml/min/1.73s q.m [facility] Glucose post fast [Mass/Vol] 112 mg/dL High [facility] Comment on above: NORMAL <100 mg/dL PREDIABETES 101-126 mg/dL DIABETES 126 mg/dL or higher Interpretation and review of laboratory results Abnormal [facility] Potassium [Moles/Vol] 4.3 mmol/L [place] Sodium [Moles/Vol] 138 mmol/L [facility] Urea nitrogen [Mass/Vol] 10 mg/dL [facility] BMP FASTINGon 03-12-2023 Anion gap [Moles/Vol] 9 mmol/L Normal [facility] Comment on above: Performed By: #### L VB1 #### Testing performed at [facility] Calcium [Mass/Vol] 8.7 mg/dL Normal 8.4-10.2 [facility] Comment on above: Performed By: #### L VB1 #### Testing performed at [facility] Chloride [Moles/Vol] 105 mmol/L Normal 98-107 [facility] Comment on above: Result Comment: Yovany bro note: Triglyceride levels of 600mg/dL or higher may positively bias chloride results by approximately 2.1 mmol Performed By: #### L VB1 #### Testing performed at [facility] CO2 [Moles/Vol] 24 mmol/L Normal 22-30 [facility] Comment on above: Performed By: #### L VB1 #### Testing performed at [facility] Creatinine [Mass/Vol] 0.68 mg/dL Low 0.70-1.20 [facility] Comment on above: Performed By: #### L VB1 #### Testing performed at [facility] EST. GFR, 133 ml/min/1.73sq.m [facility] Comment on above: Performed By: #### L VB1 #### Testing performed at [facility] EST. GFR,Non 110 ml/min/1.73sq.m [facility] Comment on above: Performed By: #### L VB1 #### Testing performed at [facility] GFR Information Average GFR for 20-2 9 years old = 116. Normal [facility] Comment on above: Result Comment: [employer] karl Kidney disease, GFR = <60. Kidney failure, GFR = <15. The GFR estimate is not adjusted for extreme body surface area or acute process, nor has it been validated for women or ethnic groups other than and . Performed By: #### L VB1 #### Testing performed at [facility] Glucose [Mass/Vol] 112 mg/dL High 70-100 [facility] Comment on above: Result Comment: NORMAL <100 mg/dL PREDIABETES 101-126 mg/dL DIABETES 126 mg/dL or higher Performed By: #### L VB1 #### Testing performed at [facility] Potassium [Moles/Vol] 4.3 mmol/L Normal 3.5-5.1 [facility] Comment on above: Performed By: #### L VB1 #### Testing performed at [facility] Sodium [Moles/Vol] 138 mmol/L Normal 137-145 [facility] Comment on above: Performed By: #### L VB1 #### Testing performed at [facility] Urea nitrogen [Mass/Vol] 10 mg/dL Normal 7-20 [facility] Comment on above: Performed By: #### L VB1 #### Testing performed at [facility] CBCon 03-12-2023 ABSOLUTE BAS 0.0 10*3/uL Normal 0.0-0.2 [facility] Comment on above: Performed By: #### L VB1 #### Testing performed at [facility] ABSOLUTE EOS 0.0 10*3/uL Normal 0.0-0.7 [facility] Comment on above: Performed By: #### L VB1 #### Testing performed at [facility] ABSOLUTE NEUTROPHIL COUNT 10.0 10*3/uL High 1.4-6.5 [facility] Comment on above: Performed By: #### L VB1 #### Testing performed at [facility] Basophils/100 WBC (Bld) 0.1 % Normal 0.0-2.0 [facility] Comment on above: Performed By: #### L VB1 #### Testing performed at [facility] DTYPE AUTO DIFF Normal [facility] Comment on above: Performed By: #### L VB1 #### Testing performed at [facility] Eosinophils/100 WBC (Bld) 0.0 % Normal 0.0-11.0 [facility] Comment on above: Performed By: #### L VB1 #### Testing performed at [facility] Lymphocytes (Bld) [#/Vol] 1.1 10*3/uL Low 1.2-3.4 [facility] Comment on above: Performed By: #### L VB1 #### Testing performed at [facility] Lymphocytes/100 WBC (Bld) 9.2 % Low 20.0-55.0 [facility] Comment on above: Performed By: #### L VB1 #### Testing performed at [facility] Monocytes (Bld) [#/Vol] 0.9 10*3/uL High 0.0-0.7 [facility] Comment on above: Performed By: #### L VB1 #### Testing performed at [facility] Monocytes/100 WBC (Bld) 7.4 % Normal 0.0-10.0 [facility] Comment on above: Performed By: #### L VB1 #### Testing performed at [facility] Neutrophils/100 WBC (Bld) 83.3 % High 37.0-75.0 [facility] Comment on above: Performed By: #### L VB1 #### Testing performed at [facility] Erythrocyte distribution width (RBC) [Ratio] 13.8 % Normal 11.5-14.5 [facility] Comment on above: Performed By: #### L VB1 #### Testing performed at [facility] Hematocrit (Bld) [Volume fraction] 38.0 % Normal 36.0-48.0 [facility] Comment on above: Performed By: #### L VB1 #### Testing performed at [facility] Hemoglobin (Bld) [Mass/Vol] 12.2 g/dL Normal 12.0-16.0 [facility] Comment on above: Performed By: #### L VB1 #### Testing performed at [facility] MCH (RBC) [Entitic mass] 28.0 pg Normal 26.0-35.0 [facility] Comment on above: Performed By: #### L VB1 #### Testing performed at [facility] MCHC (RBC) [Mass/Vol] 32.1 g/dL Normal 27.0-37.0 [facility] Comment on above: Performed By: #### L VB1 #### Testing performed at [facility] MCV (RBC) [Entitic vol] 87.1 fL Normal 80.0-100.0 [facility] Comment on above: Performed By: #### L VB1 #### Testing performed at [facility] Platelet mean volume (Bld) [Entitic vol] 8.0 fL Normal 7.4-11.0 [facility] Comment on above: Performed By: #### L VB1 #### Testing performed at [facility] Platelets (Bld) [#/Vol] 311 10*3/uL Normal 130-400 [facility] Comment on above: Performed By: #### L VB1 #### Testing performed at [facility] RBC (Bld) [#/Vol] 4.36 10*6/uL Normal 4.0-5.4 [facility] Comment on above: Performed By: #### L VB1 #### Testing performed at [facility] WBC (Bld) [#/Vol] 12.1 10*3/uL High 3.6-11.0 [facility] Comment on above: Performed By: #### L VB1 #### Testing performed at [facility] CBC, EDIF, PLATELETon 2022 ABSOLUTE BASOPHIL COUNT 0.0 10*3/uL 0.0 - 0.2 10*3/uL [facility] Basophils/100 WBC (Bld) 0.1 % 0.0 - 2.0 % [facility] Differential cell count method Nom (Bld) AUTO DIFF % [facility] Eosinophils (Bld) [#/Vol] 0.0 10*3/uL 0.0 - 0.7 10*3/uL [facility] Eosinophils/100 WBC (Bld) 0.0 % 0.0 - 11.0 % [facility] Erythrocyte distribution width (RBC) [Ratio] 13.8 % 11.5 - 14.5 % [facility] Hematocrit (Bld) [Volume fraction] 38.0 % 36.0 - 48.0 % [facility] Hemoglobin (Bld) [Mass/Vol] 12.2 g/dL [facility] Interpretation and review of laboratory results Abnormal [facility] Lymphocytes (Bld) [#/Vol] 1.1 10*3/uL Low 1.2 - 3.4 10*3/uL [facility] Lymphocytes/100 WBC (Bld) 9.2 % Low 20.0 - 55.0 % [facility] MCH (RBC) [Entitic mass] 28.0 pg 26.0 - 35.0 PG [facility] MCHC (RBC) [Mass/Vol] 32.1 g/dL [place] MCV (RBC) [Entitic vol] 87.1 fL [facility] Monocytes (Bld) [#/Vol] 0.9 10*3/uL High 0.0 - 0.7 10*3/uL [facility] Monocytes/100 WBC (Bld) 7.4 % 0.0 - 10.0 % [facility] Neutrophils (Bld) [#/Vol] 10.0 10*3/uL High 1.4 - 6.5 10*3/uL [facility] Neutrophils/100 WBC (Bld) 83.3 % High 37.0 - 75.0 % [facility] Platelet mean volume (Bld) [Entitic vol] 8.0 fL [facility] Platelets (Bld) [#/Vol] 311 10*3/uL 130 - 400 10*3/uL [facility] RBC (Bld) [#/Vol] 4.36 10*6/uL 4.0 - 5.4 10*6/uL [facility] WBC (Bld) [#/Vol] 12.1 10*3/uL High 3.6 - 11.0 10*3/uL [facility] BASIC METABOLIC PANELon 03-01 Anion gap [Moles/Vol] 8 mmol/L MMOL/L [place] Calcium [Mass/Vol] 8.9 mg/dL [facility] [facility] Chloride [Moles/Vol] 107 mmol/L [facility] Comment on above: Please note: Triglyc eride levels of 600mg/dL or higher may positively bias chloride results by approximately 2.1 mmol CO2 [Moles/Vol] 23 mmol/L [facility] Creatinine [Mass/Vol] 0.76 mg/dL [place] GFR COMMENT Average GFR for 20-2 9 years old = 116. [facility] Comment on above: Chronic Kidney disea se, GFR = <60. Kidney failure, GFR = <15. The GFR estimate is not adjusted for extreme body surface area or acute process, nor has it been validated for women or ethnic groups other than and . GFR/1.73 sq M.predicted among blacks MDRD (S/P/Bld) [Vol rate/Area] 117 mL/min/{1.73_m2} ml/min/1.73s q.m [facility] GFR/1.73 sq M.predicted among non-blacks MDRD (S/P/Bld) [Vol rate/Area] 97 mL/min/{1.73_m2} ml/min/1.73s q.m [facility] Glucose post fast [Mass/Vol] 168 mg/dL High [facility] Comment on above: NORMAL <100 mg/dL PREDIABETES 101-126 mg/dL DIABETES 126 mg/dL or higher Interpretation and review of laboratory results Abnormal [facility] Potassium [Moles/Vol] 4.6 mmol/L [place] Sodium [Moles/Vol] 138 mmol/L [facility] Urea nitrogen [Mass/Vol] 10 mg/dL [facility] Anion gap [Moles/Vol] 13 mmol/L MMOL/L [place] Calcium [Mass/Vol] 9.3 mg/dL [facility] Chloride [Moles/Vol] 107 mmol/L [facility] Comment on above: Please note: Triglyc eride levels of 600mg/dL or higher may positively bias chloride results by approximately 2.1 mmol CO2 [Moles/Vol] 21 mmol/L Low [facility] Creatinine [Mass/Vol] 0.74 mg/dL [place] GFR COMMENT Average GFR for 20-2 9 years old = 116. [facility] Comment on above: Chronic Kidney disea se, GFR = <60. Kidney failure, GFR = <15. The GFR estimate is not adjusted for extreme body surface area or acute process, nor has it been validated for women or ethnic groups other than and . GFR/1.73 sq M.predicted among blacks MDRD (S/P/Bld) [Vol rate/Area] 121 mL/min/{1.73_m2} ml/min/1.73s q.m [facility] GFR/1.73 sq M.predicted among non-blacks MDRD (S/P/Bld) [Vol rate/Area] 100 mL/min/{1.73_m2} ml/min/1.73s q.m [facility] Glucose post fast [Mass/Vol] 95 mg/dL [facility] Comment on above: NORMAL <100 mg/dL PREDIABETES 101-126 mg/dL DIABETES 126 mg/dL or higher Interpretation and review of laboratory results Abnormal [facility] Potassium [Moles/Vol] 3.9 mmol/L [place] Sodium [Moles/Vol] 141 mmol/L [facility] Urea nitrogen [Mass/Vol] 9 mg/dL [facility] BMP FASTINGon 03-11-2023 Anion gap [Moles/Vol] 8 mmol/L Normal [facility] Comment on above: Performed By: #### H EMOG, BMPF, PHOS, MG #### Testing performed at [address] [address] Calcium [Mass/Vol] 8.9 mg/dL Normal 8.4-10.2 [facility] Comment on above: Performed By: #### H EMOG, BMPF, PHOS, MG #### Testing performed at [place] [id number] Chloride [Moles/Vol] 107 mmol/L Normal 98-107 [facility] Comment on above: Result Comment: Yovany bro note: Triglyceride levels of 600mg/dL or higher may positively bias chloride results by approximately 2.1 mmol Performed By: #### H EMOG, BMPF, PHOS, MG #### [place] [address] CO2 [Moles/Vol] 23 mmol/L Normal 22-30 [facility] Comment on above: Performed By: #### H EMOG, BMPF, PHOS, MG #### [place] [address] Creatinine [Mass/Vol] 0.76 mg/dL Normal 0.70-1.20 [facility] Comment on above: Performed By: #### H EMOG, BMPF, PHOS, MG #### Testing performed at [place] [id number] EST. GFR, 117 ml/min/1.73sq.m [facility] Comment on above: Performed By: #### H EMOG, BMPF, PHOS, MG #### [place] [address] EST. GFR,Non 97 ml/min/1.73sq.m [facility] Comment on above: Performed By: #### H EMOG, BMPF, PHOS, MG #### [place] [address] GFR Information Average GFR for 20-2 9 years old = 116. Normal [facility] Comment on above: Result Comment: J2E[employer] Application Developer karl Kidney disease, GFR = <60. Kidney failure, GFR = <15. The GFR estimate is not adjusted for extreme body surface area or acute process, nor has it been validated for women or ethnic groups other than and . Performed By: #### H EMOG, BMPF, PHOS, MG #### [place] [address] Glucose [Mass/Vol] 168 mg/dL High 70-100 [facility] Comment on above: Result Comment: NORMAL <100 mg/dL PREDIABETES 101-126 mg/dL DIABETES 126 mg/dL or higher Performed By: #### H EMOG, BMPF, PHOS, MG #### Testing performed at [address] [address] Potassium [Moles/Vol] 4.6 mmol/L Normal 3.5-5.1 [facility] Comment on above: Performed By: #### H EMOG, BMPF, PHOS, MG #### Testing performed at [address] [address] Sodium [Moles/Vol] 138 mmol/L Normal 137-145 [facility] Comment on above: Performed By: #### H EMOG, BMPF, PHOS, MG #### Testing performed at [address] [address] Urea nitrogen [Mass/Vol] 10 mg/dL Normal 7-20 [facility] Comment on above: Performed By: #### H EMOG, BMPF, PHOS, MG #### Testing performed at [address] [address] Anion gap [Moles/Vol] 13 mmol/L Normal [facility] Comment on above: Performed By: #### B MPF, HEMOG ####Testing performed at [address] [address] Calcium [Mass/Vol] 9.3 mg/dL Normal 8.4-10.2 [facility] Comment on above: Performed By: #### B MPF, HEMOG ####Testing performed at [address] [address] Chloride [Moles/Vol] 107 mmol/L Normal 98-107 [facility] Comment on above: Result Comment: Plea se note: Triglyceride levels of 600mg/dL or higher may positively bias chloride results by approximately 2.1 mmol Performed By: #### B MPF, HEMOG ####Testing performed at [address] [address] CO2 [Moles/Vol] 21 mmol/L Low 22-30 [facility] Comment on above: Performed By: #### B MPF, HEMOG ####Testing performed at [place] [id number] Creatinine [Mass/Vol] 0.74 mg/dL Normal 0.70-1.20 [facility] Comment on above: Performed By: #### B MPF, HEMOG ####Testing performed at [address] [address] EST. GFR, 121 ml/min/1.73sq.m [facility] Comment on above: Performed By: #### B MPF, HEMOG ####Testing performed at [address] [address] EST. GFR,Non 100 ml/min/1.73sq.m [facility] Comment on above: Performed By: #### B MPF, HEMOG ####[place] [address] GFR Information Average GFR for 20-2 9 years old = 116. Normal [facility] Comment on above: Result Comment: J2E[employer] Application Developer karl Kidney disease, GFR = <60. Kidney failure, GFR = <15. The GFR estimate is not adjusted for extreme body surface area or acute process, nor has it been validated for women or ethnic groups other than and . Performed By: #### B MPF, HEMOG ####Testing performed at [place] [id number] Glucose [Mass/Vol] 95 mg/dL Normal 70-100 [facility] Comment on above: Result Comment: NORMAL <100 mg/dL PREDIABETES 101-126 mg/dL DIABETES 126 mg/dL or higher Performed By: #### B MPF, HEMOG ####Testing performed at [place] [id number] Potassium [Moles/Vol] 3.9 mmol/L Normal 3.5-5.1 [facility] Comment on above: Performed By: #### B MPF, HEMOG ####Testing performed at [place] [id number] Sodium [Moles/Vol] 141 mmol/L Normal 137-145 [facility] Comment on above: Performed By: #### B MPF, HEMOG ####Testing performed at [address] [address] Urea nitrogen [Mass/Vol] 9 mg/dL Normal 7-20 [facility] Comment on above: Performed By: #### B MPF, HEMOG ####Testing performed at [address] [address] CBC(NO DIFF)on 03-11-2023 Erythrocyte distribution width (RBC) [Ratio] 13.7 % Normal 11.5-14.5 [facility] Comment on above: Performed By: #### H EMOG, BMPF, PHOS, MG #### Testing performed at [address] [address] Hematocrit (Bld) [Volume fraction] 39.9 % Normal 36.0-48.0 [facility] Comment on above: Performed By: #### H EMOG, BMPF, PHOS, MG #### Testing performed at [address] [address] Hemoglobin (Bld) [Mass/Vol] 12.9 g/dL Normal 12.0-16.0 [facility] Comment on above: Performed By: #### H EMOG, BMPF, PHOS, MG #### Testing performed at [address] [address] MCH (RBC) [Entitic mass] 28.1 pg Normal 26.0-35.0 [facility] Comment on above: Performed By: #### H EMOG, BMPF, PHOS, MG #### Testing performed at [address] [address] MCHC (RBC) [Mass/Vol] 32.3 g/dL Normal 27.0-37.0 [facility] Comment on above: Performed By: #### H EMOG, BMPF, PHOS, MG #### Testing performed at [address] [address] MCV (RBC) [Entitic vol] 87.0 fL Normal 80.0-100.0 [facility] Comment on above: Performed By: #### H EMOG, BMPF, PHOS, MG #### Testing performed at [address] [address] Platelet mean volume (Bld) [Entitic vol] 8.0 fL Normal 7.4-11.0 [facility] Comment on above: Performed By: #### H EMOG, BMPF, PHOS, MG #### Testing performed at [address] [address] Platelets (Bld) [#/Vol] 298 10*3/uL Normal 130-400 [facility] Comment on above: Performed By: #### H EMOG, BMPF, PHOS, MG #### Testing performed at [address] [address] RBC (Bld) [#/Vol] 4.59 10*6/uL Normal 4.0-5.4 [facility] Comment on above: Performed By: #### H EMOG, BMPF, PHOS, MG #### Testing performed at [address] [address] WBC (Bld) [#/Vol] 12.1 10*3/uL High 3.6-11.0 [facility] Comment on above: Performed By: #### H EMOG, BMPF, PHOS, MG #### Testing performed at [address] [address] Erythrocyte distribution width (RBC) [Ratio] 14.0 % Normal 11.5-14.5 [facility] Comment on above: Performed By: #### B MPF, HEMOG ####Testing performed at [address] [address] Hematocrit (Bld) [Volume fraction] 41.4 % Normal 36.0-48.0 [facility] Comment on above: Performed By: #### B MPF, HEMOG ####Testing performed at [address] [address] Hemoglobin (Bld) [Mass/Vol] 13.3 g/dL Normal 12.0-16.0 [facility] Comment on above: Performed By: #### B MPF, HEMOG ####Testing performed at [address] [address] MCH (RBC) [Entitic mass] 27.8 pg Normal 26.0-35.0 [facility] Comment on above: Performed By: #### B MPF, HEMOG ####Testing performed at [address] [address] MCHC (RBC) [Mass/Vol] 32.2 g/dL Normal 27.0-37.0 [facility] Comment on above: Performed By: #### B MPF, HEMOG ####Testing performed at [address] [address] MCV (RBC) [Entitic vol] 86.4 fL Normal 80.0-100.0 [facility] Comment on above: Performed By: #### B MPF, HEMOG ####Testing performed at [address] [address] Platelet mean volume (Bld) [Entitic vol] 7.9 fL Normal 7.4-11.0 [facility] Comment on above: Performed By: #### B MPF, HEMOG ####Testing performed at [address] [address] Platelets (Bld) [#/Vol] 337 10*3/uL Normal 130-400 [facility] Comment on above: Performed By: #### B MPF, HEMOG ####Testing performed at [address] [address] RBC (Bld) [#/Vol] 4.80 10*6/uL Normal 4.0-5.4 [facility] Comment on above: Performed By: #### B MPF, HEMOG ####Testing performed at [address] [address] WBC (Bld) [#/Vol] 9.2 10*3/uL Normal 3.6-11.0 [facility] Comment on above: Performed By: #### B MPF, HEMOG ####Testing performed at [address] [address] CBC,PLATELETSon 03-11-2023 Erythrocyte distribution width (RBC) [Ratio] 13.7 % 11.5 - 14.5 % [facility] Hematocrit (Bld) [Volume fraction] 39.9 % 36.0 - 48.0 % [facility] Hemoglobin (Bld) [Mass/Vol] 12.9 g/dL [facility] Interpretation and review of laboratory results Abnormal [facility] MCH (RBC) [Entitic mass] 28.1 pg 26.0 - 35.0 PG [facility] MCHC (RBC) [Mass/Vol] 32.3 g/dL [place] MCV (RBC) [Entitic vol] 87.0 fL A [facility] Platelet mean volume (Bld) [Entitic vol] 8.0 fL [facility] Platelets (Bld) [#/Vol] 298 10*3/uL 130 - 400 10*3/uL [facility] RBC (Bld) [#/Vol] 4.59 10*6/uL 4.0 - 5.4 10*6/uL [facility] WBC (Bld) [#/Vol] 12.1 10*3/uL High 3.6 - 11.0 10*3/uL [facility] Erythrocyte distribution width (RBC) [Ratio] 14.0 % 11.5 - 14.5 % [facility] Hematocrit (Bld) [Volume fraction] 41.4 % 36.0 - 48.0 % [facility] Hemoglobin (Bld) [Mass/Vol] 13.3 g/dL [facility] MCH (RBC) [Entitic mass] 27.8 pg 26.0 - 35.0 PG [facility] MCHC (RBC) [Mass/Vol] 32.2 g/dL [place] MCV (RBC) [Entitic vol] 86.4 fL A [facility] Platelet mean volume (Bld) [Entitic vol] 7.9 fL [facility] Platelets (Bld) [#/Vol] 337 10*3/uL 130 - 400 10*3/uL [facility] RBC (Bld) [#/Vol] 4.80 10*6/uL 4.0 - 5.4 10*6/uL [facility] WBC (Bld) [#/Vol] 9.2 10*3/uL 3.6 - 11.0 10*3/uL [facility] HCG ( test) Ql (U)o n 03-11-2023 HCG.beta subunit [Moles/Vol] Negative [facility] Comment on above: LOT: [id number] Exp: Internal Control Okay [facility] MAGNESIUMon 03-11-2023 Magnesium [Mass/Vol] 2.3 mg/dL Normal 1.6-2.3 [facility] Comment on above: Performed By: #### H EMOG, BMPF, PHOS, MG #### Testing performed at [address] [address] Magnesium [Mass/Vol] 2.3 mg/dL [facility] No Panel Informationon 03-11 [facility] PHOSPHATE, INORGANICon 03-11 Phosphate [Mass/Vol] 2.8 mg/dL [facility] PHOSPHOROUSon 03-11-2023 PHOSPHOROUS 2.8 MG/DL Normal 2.5-4.5 [facility] Comment on above: Performed By: #### T SCC #### Testing performed at [address] [address] REPEAT ABO/RHon 03-11-2023 REPEAT ABO/RH Positive Normal [facility] Comment on above: Performed By: #### R ABRH ####Testing performed at [address] [address] REPEAT ABO/RH (D) TYPINGon 1 ABO and Rh group Nom (Bld ) Positive [facility] BMP FASTINGon 02-24-2023 Anion gap [Moles/Vol] 13 mmol/L Normal [facility] Comment on above: Performed By: #### A KARL, RTOX, UHCGT #### Testing performed at [address] [address] Calcium [Mass/Vol] 9.4 mg/dL Normal 8.4-10.2 [facility] Comment on above: Performed By: #### A KARL, RTOX, UHCGT #### Testing performed at [address] [address] Chloride [Moles/Vol] 103 mmol/L Normal 98-107 [facility] Comment on above: Result Comment: Yovany bro note: Triglyceride levels of 600mg/dL or higher may positively bias chloride results by approximately 2.1 mmol Performed By: #### A KARL RTOX UHCGT #### Testing performed at [address] [address] CO2 [Moles/Vol] 24 mmol/L Normal 22-30 [facility] Comment on above: Performed By: #### A KARL RTOX UHCGT #### Testing performed at [address] [address] Creatinine [Mass/Vol] 0.78 mg/dL Normal 0.70-1.20 [facility] Comment on above: Performed By: #### A KARL RTOX UHCGT #### Testing performed at [address] [address] EST. GFR, 114 ml/min/1.73sq.m [facility] Comment on above: Performed By: #### A KARL RTOX UHCGT #### Testing performed at [address] [address] EST. GFR,Non 94 ml/min/1.73sq.m [facility] Comment on above: Performed By: #### A KARL RTOX UHCGT #### Testing performed at [address] [address] GFR Information Average GFR for 20-2 9 years old = 116. Normal [facility] Comment on above: Result Comment: J2Ee Application Developer karl Kidney disease, GFR = <60. Kidney failure, GFR = <15. The GFR estimate is not adjusted for extreme body surface area or acute process, nor has it been validated for women or ethnic groups other than and . Performed By: #### A KARL RTOX, UHCGT #### Testing performed at [address] [address] Glucose [Mass/Vol] 94 mg/dL Normal 70-100 [facility] Comment on above: Result Comment: NORMAL <100 mg/dL PREDIABETES 101-126 mg/dL DIABETES 126 mg/dL or higher Performed By: #### A KARL RTOX, UHCGT #### Testing performed at [address] [address] Potassium [Moles/Vol] 4.3 mmol/L Normal 3.5-5.1 [facility] Comment on above: Performed By: #### A KARL, RTOX, UHCGT #### Testing performed at [address] [address] Sodium [Moles/Vol] 140 mmol/L Normal 137-145 [facility] Comment on above: Performed By: #### A KARL, RTOX, UHCGT #### Testing performed at [address] [address] Urea nitrogen [Mass/Vol] 17 mg/dL Normal 7-20 [facility] Comment on above: Performed By: #### A KARL RTOX, UHCGT #### Testing performed at [address] [address] CBC(NO DIFF)on 02-24-2023 Erythrocyte distribution width (RBC) [Ratio] 13.6 % Normal 11.5-14.5 [facility] Comment on above: Performed By: #### L VB1 #### Testing performed at [facility] Hematocrit (Bld) [Volume fraction] 42.0 % Normal 36.0-48.0 [facility] Comment on above: Performed By: #### L VB1 #### Testing performed at [facility] Hemoglobin (Bld) [Mass/Vol] 13.6 g/dL Normal 12.0-16.0 [facility] Comment on above: Performed By: #### L VB1 #### Testing performed at [facility] MCH (RBC) [Entitic mass] 28.0 pg Normal 26.0-35.0 [facility] Comment on above: Performed By: #### L VB1 #### Testing performed at [facility] MCHC (RBC) [Mass/Vol] 32.4 g/dL Normal 27.0-37.0 [facility] Comment on above: Performed By: #### L VB1 #### Testing performed at [facility] MCV (RBC) [Entitic vol] 86.5 fL Normal 80.0-100.0 [facility] Comment on above: Performed By: #### L VB1 #### Testing performed at [facility] Platelet mean volume (Bld) [Entitic vol] 7.8 fL Normal 7.4-11.0 [facility] Comment on above: Performed By: #### L VB1 #### Testing performed at [facility] Platelets (Bld) [#/Vol] 367 10*3/uL Normal 130-400 [facility] Comment on above: Performed By: #### L VB1 #### Testing performed at [facility] RBC (Bld) [#/Vol] 4.85 10*6/uL Normal 4.0-5.4 [facility] Comment on above: Performed By: #### L VB1 #### Testing performed at [facility] WBC (Bld) [#/Vol] 9.2 10*3/uL Normal 3.6-11.0 [facility] Comment on above: Performed By: #### L VB1 #### Testing performed at [facility] PROTIMEon 02-24-2023 INR Coag (PPP) [Relative time] 0.94 {INR} Normal 0.85-1.10 [facility] Comment on above: Result Comment: 2.0-3.0 THERAPEUTIC RANGE 2.5-3.5 MECHANICAL VALVE RANGE Performed By: #### L VB1 #### Testing performed at [facility] PT Coag (PPP) [Time] 12.7 s Normal 11.8-14.4 [facility] Comment on above: Performed By: #### L VB1 #### Testing performed at [facility] PTTon 02-24-2023 aPTT Coag (Bld) [Time] 30.8 s Normal 22.4-34.7 [facility] Comment on above: Result Comment: CARDIAC AND PE/DVT THERAPUTIC RANGE 69-97 SEC VASCULAR/THREATENED LIMB THERAPUTIC RANGE 80-112 SEC Performed By: #### L VB1 #### Testing performed at [facility] TYPE AND SCREEN CROSSMATCH C ONVERTIBLEon 02-24-2023 TYPE AND SCREEN CROSSMATCH CONVERTIBLE WORKUP EXPIRES 03/14/2023,2359 ABO/RH(D) A POSITIVE ANTIBODY SCREEN NEGATIVE ARM BAND NUMBER [id number] Normal [facility] Comment on above: Performed By: #### T SCC #### Testing performed at [address] [address] URINE HCG QUALon 02-24-2023 Beta HCG ( test) Ql (U) Negative Normal NEGATIVE [facility] Comment on above: Performed By: #### U HCGT ####Testing performed at [address] [address] PLASMA ZINCon 02-14-2023 PLASMA ZINC 68 Normal [facility] Comment on above: Result Comment: Refe rence range: 44 to 115 Unit: ug/dL (NOTE) This test was developed and its performance characteristics determined by [facility]. It has not been cleared or approved by the Food and Drug Administration. Detection Limit = [address] [facility] Performed By: #### A KARL, RTOX, UHCGT #### Testing performed at [address] [address] VIT.B1 THIAMINE-BLDon 2022 VIT.B1 THIAMINE-BLD 146.8 Normal [facility] Comment on above: Result Comment: Refe rence range: 66.5 to 200.0 Unit: nmol/L (NOTE) This test was developed and its performance characteristics determined by [facility]. It has not been cleared or approved by the Food and Drug Administration. PERFORMED AT [facility] Performed By: #### L VB1 ####Testing performed at [facility] 25 0H VITAMIN D LEVELon 01-30 25 0H VITAMIN D LEVEL 44.6 NG/ML Normal [facility] Comment on above: Result Comment: DEFICIENT <20 NG/ML INSUFFICIENT 20-<30 NG/ML SUFFICIENT 30-100 NG/ML POTENTIAL TOXICITY >100 NG/ML Performed By: #### T SCC #### Testing performed at [address] [address] B12 FOLATEon 02-10-2023 Cobalamin (Vitamin B12) [Mass/Vol] 594 pg/mL Normal 239-931 [facility] Comment on above: Performed By: #### A KARL, RTOX, UHCGT #### Testing performed at [address] [address] FOLATE >20.0 High 2.56-20.0 [facility] Comment on above: Performed By: #### A KARL, RTOX, UHCGT #### Testing performed at [address] [address] CBCon 02-10-2023 ABSOLUTE BAS 0.0 10*3/uL Normal 0.0-0.2 [facility] Comment on above: Performed By: #### A KARL, RTOX, UHCGT #### Testing performed at [address] [address] ABSOLUTE EOS 0.1 10*3/uL Normal 0.0-0.7 [facility] Comment on above: Performed By: #### A KARL, RTOX, UHCGT #### Testing performed at [address] [address] ABSOLUTE NEUTROPHIL COUNT 6.8 10*3/uL High 1.4-6.5 [facility] Comment on above: Performed By: #### A KARL, RTOX, UHCGT #### Testing performed at [address] [address] Basophils/100 WBC (Bld) 0.4 % Normal 0.0-2.0 [facility] Comment on above: Performed By: #### A KARL, RTOX, UHCGT #### Testing performed at [address] [address] DTYPE AUTO DIFF Normal [facility] Comment on above: Performed By: #### A KARL, RTOX, UHCGT #### Testing performed at [address] [address] Eosinophils/100 WBC (Bld) 1.0 % Normal 0.0-11.0 [facility] Comment on above: Performed By: #### A KARL, RTOX, UHCGT #### Testing performed at [address] [address] Lymphocytes (Bld) [#/Vol] 2.3 10*3/uL Normal 1.2-3.4 [facility] Comment on above: Performed By: #### A KARL, RTOX, UHCGT #### Testing performed at [address] [address] Lymphocytes/100 WBC (Bld) 23.0 % Normal 20.0-55.0 [facility] Comment on above: Performed By: #### A KARL, RTOX, UHCGT #### Testing performed at [address] [address] Monocytes (Bld) [#/Vol] 0.7 10*3/uL Normal 0.0-0.7 [facility] Comment on above: Performed By: #### A KARL, RTOX, UHCGT #### Testing performed at [address] [address] Monocytes/100 WBC (Bld) 7.1 % Normal 0.0-10.0 [facility] Comment on above: Performed By: #### A KARL, RTOX, UHCGT #### Testing performed at [address] [place] [address] Neutrophils/100 WBC (Bld) 68.5 % Normal 37.0-75.0 [facility] Comment on above: Performed By: #### A KARL, RTOX, UHCGT #### Testing performed at [address] [place] [address] Erythrocyte distribution width (RBC) [Ratio] 14.2 % Normal 11.5-14.5 [facility] Comment on above: Performed By: #### A KARL, RTOX, UHCGT #### Testing performed at [address] [place] [address] Hematocrit (Bld) [Volume fraction] 40.3 % Normal 36.0-48.0 [facility] Comment on above: Performed By: #### A KARL, RTOX, UHCGT #### Testing performed at [address] [place] [address] Hemoglobin (Bld) [Mass/Vol] 13.0 g/dL Normal 12.0-16.0 [facility] Comment on above: Performed By: #### A KARL, RTOX, UHCGT #### Testing performed at [address] [address] MCH (RBC) [Entitic mass] 28.0 pg Normal 26.0-35.0 [facility] Comment on above: Performed By: #### A KARL, RTOX, UHCGT #### Testing performed at [address] [address] MCHC (RBC) [Mass/Vol] 32.3 g/dL Normal 27.0-37.0 [facility] Comment on above: Performed By: #### A KARL, RTOX, UHCGT #### Testing performed at [address] [address] MCV (RBC) [Entitic vol] 86.8 fL Normal 80.0-100.0 [facility] Comment on above: Performed By: #### A KARL, RTOX, UHCGT #### Testing performed at [address] [address] Platelet mean volume (Bld) [Entitic vol] 7.7 fL Normal 7.4-11.0 [facility] Comment on above: Performed By: #### A KARL, RTOX, UHCGT #### Testing performed at [address] [address] Platelets (Bld) [#/Vol] 334 10*3/uL Normal 130-400 [facility] Comment on above: Performed By: #### A KARL, RTOX, UHCGT #### Testing performed at [address] [address] RBC (Bld) [#/Vol] 4.64 10*6/uL Normal 4.0-5.4 [facility] Comment on above: Performed By: #### A KARL, RTOX, UHCGT #### Testing performed at [address] [address] WBC (Bld) [#/Vol] 9.9 10*3/uL Normal 3.6-11.0 [facility] Comment on above: Performed By: #### A KARL, RTOX, UHCGT #### Testing performed at [address] [address] CMP FASTINGon 02-10-2023 A:G RATIO 1.5 RATIO Normal [facility] Comment on above: Performed By: #### A KARL RTOX UHCGT #### Testing performed at [address] [address] ALBUMIN 4.5 G/dl Normal 3.5-5.0 [facility] Comment on above: Performed By: #### A KARL RTOX UHCGT #### Testing performed at [address] [address] ALP [Catalytic activity/Vol] 104 U/L Normal 38-126 [facility] Comment on above: Performed By: #### A KARL RTOX UHCGT #### Testing performed at [address] [address] ALT [Catalytic activity/Vol] 23 U/L Normal <35 [facility] Comment on above: Performed By: #### A KARL RTOX UHCGT #### Testing performed at [address] [address] AST [Catalytic activity/Vol] 27 U/L Normal 14-36 [facility] Comment on above: Performed By: #### A KARL RTOX UHCGT #### Testing performed at [address] [address] Bilirubin [Mass/Vol] 0.5 mg/dL Normal 0.2-1.3 [facility] Comment on above: Performed By: #### A KARL RTOX UHCGT #### Testing performed at [address] [address] Calcium [Mass/Vol] 9.8 mg/dL Normal 8.4-10.2 [facility] Comment on above: Performed By: #### A KARL RTOX, UHCGT #### Testing performed at [address] [address] Chloride [Moles/Vol] 103 mmol/L Normal 98-107 [facility] Comment on above: Result Comment: Yovany bro note: Triglyceride levels of 600mg/dL or higher may positively bias chloride results by approximately 2.1 mmol Performed By: #### A KARL, RTOX, UHCGT #### Testing performed at [address] [address] CO2 [Moles/Vol] 25 mmol/L Normal 22-30 [facility] Comment on above: Performed By: #### A KARL, RTOX, UHCGT #### Testing performed at [address] [address] Creatinine [Mass/Vol] 0.85 mg/dL Normal 0.70-1.20 [facility] Comment on above: Performed By: #### A KARL, RTOX, UHCGT #### Testing performed at [address] [address] EST. GFR, 103 ml/min/1.73sq.m [facility] Comment on above: Performed By: #### A KARL, RTOX, UHCGT #### Testing performed at [address] [address] EST. GFR,Non 85 ml/min/1.73sq.m [facility] Comment on above: Performed By: #### A KARL, RTOX, UHCGT #### Testing performed at [address] [address] GFR Information Average GFR for 20-2 9 years old = 116. Normal [facility] Comment on above: Result Comment: J2Ee Application Developer karl Kidney disease, GFR = <60. Kidney failure, GFR = <15. The GFR estimate is not adjusted for extreme body surface area or acute process, nor has it been validated for women or ethnic groups other than and . Performed By: #### A KARL, RTOX, UHCGT #### Testing performed at [address] [address] Glucose [Mass/Vol] 91 mg/dL Normal 70-100 [facility] Comment on above: Result Comment: NORMAL <100 mg/dL PREDIABETES 101-126 mg/dL DIABETES 126 mg/dL or higher Performed By: #### A KARL, RTOX, UHCGT #### Testing performed at [address] [address] Potassium [Moles/Vol] 4.7 mmol/L Normal 3.5-5.1 [facility] Comment on above: Performed By: #### A KARL, RTOX, UHCGT #### Testing performed at [address] [address] Protein [Mass/Vol] 7.6 g/dL Normal 6.3-8.2 [facility] Comment on above: Performed By: #### A KARL, RTOX, UHCGT #### Testing performed at [address] [address] Sodium [Moles/Vol] 139 mmol/L Normal 137-145 [facility] Comment on above: Performed By: #### A KARL, RTOX, UHCGT #### Testing performed at [address] [address] Urea nitrogen [Mass/Vol] 18 mg/dL Normal 7-20 [facility] Comment on above: Performed By: #### A KARL, RTOX, UHCGT #### Testing performed at [address] [address] HEMOGLOBIN A1Con 02-10-2023 Glucose [Mass/Vol] 117 mg/dL Normal [facility] Comment on above: Performed By: #### A KARL, RTOX, UHCGT #### Testing performed at [address] [address] HbA1c (Bld) [Mass fraction] 5.7 % Normal 0-6 [facility] Comment on above: Result Comment: NORMAL <5.7% PREDIABETES 5.7-6.4% DIABETES 6.5% OR HIGHER Performed By: #### A KARL, RTOX, UHCGT #### Testing performed at [address] [address] IRON PROFILEon 02-10-2023 IRON BINDING 384 UG/DL Normal [facility] Comment on above: Performed By: #### A KARL, RTOX, UHCGT #### Testing performed at [address] [address] TRANSFERRIN SATURATION,CALCULATED 24 % Normal [facility] Comment on above: Performed By: #### A KARL, RTOX, UHCGT #### Testing performed at [address] [address] Iron [Mass/Vol] 93 ug/dL Normal 37-170 [facility] Comment on above: Performed By: #### A KARL RTOX UHCGT #### Testing performed at [address] [address] LIPID PROFILEon 02-10-2023 Cholesterol [Mass/Vol] 199 mg/dL Normal 107-217 [facility] Comment on above: Performed By: #### A KARL RTOX UHCGT #### Testing performed at [address] [address] Cholesterol in HDL [Mass/Vol] 52 mg/dL Normal 33-75 [facility] Comment on above: Performed By: #### A KARL RTOX UHCGT #### Testing performed at [address] [address] Cholesterol in LDL [Mass/Vol] 112 mg/dL Normal [facility] Comment on above: Performed By: #### A KARL RTOX UHCGT #### Testing performed at [address] [address] Cholesterol in VLDL [Mass/Vol] 35 mg/dL Normal [facility] Comment on above: Performed By: #### A KARL RTOX UHCGT #### Testing performed at [address] [address] Cholesterol.total/Desirae sterol in HDL [Mass ratio] 3.83 {ratio} Normal [facility] Comment on above: Result Comment: RISK TOTAL/HDL RATIO MEN WOMEN 1/2 AVERAGE 3.43 3.27 AVERAGE 4.97 4.44 2X AVERAGE 9.55 7.05 3X AVERAGE 23.99 11.04 Performed By: #### A KARL, RTOX, UHCGT #### Testing performed at [address] [address] Triglyceride [Mass/Vol] 176 mg/dL High 0-150 [facility] Comment on above: Performed By: #### A KARL, RTOX, UHCGT #### Testing performed at [address] [address] NICOTINE SCREEN, URINEon COTININE Negative Normal NEGATIVE [facility] Comment on above: Result Comment: Cut- off concentration of 200 ng/mL Performed By: #### A KARL, RTOX, UHCGT #### [place] [address] RAPID TOX SCREEN,URINEon AMPHETAMINE Negative Normal NEGATIVE [facility] Comment on above: Result Comment: <500 ng/ml CUTOFF Performed By: #### A KARL, RTOX, UHCGT #### [place] [address] BARBITURATES Negative Normal NEGATIVE [facility] Comment on above: Result Comment: <200 ng/ml CUTOFF Performed By: #### A KARL, RTOX, UHCGT #### [place] [address] BENZODIAZEPINES Negative Normal NEGATIVE [facility] Comment on above: Result Comment: <150 ng/ml CUTOFF Performed By: #### A KARL, RTOX, UHCGT #### [place] [address] BUPRENORPHINE Negative Normal NEGATIVE [facility] Comment on above: Result Comment: <10 ng/ml CUTOFF Performed By: #### A KARL, RTOX, UHCGT #### [place] [address] CANNABINOIDS Negative Normal NEGATIVE [facility] Comment on above: Result Comment: <50 ng/ml CUTOFF Performed By: #### A KARL, RTOX, UHCGT #### [place] [address] COCAINE Negative Normal NEGATIVE [facility] Comment on above: Result Comment: <150 ng/ml CUTOFF Performed By: #### A KARL, RTOX, UHCGT #### [place] [address] METHADONE Negative Normal NEGATIVE [facility] Comment on above: Result Comment: <200 ng/ml CUTOFF Performed By: #### A KARL, RTOX, UHCGT #### [place] [address] METHAMPHETAMINE Negative Normal NEGATIVE [facility] Comment on above: Result Comment: <500 ng/ml CUTOFF Performed By: #### A KARL, RTOX, UHCGT #### Testing performed at [address] [place] [address] OPIATES Negative Normal NEGATIVE [facility] Comment on above: Result Comment: <100 ng/ml CUTOFF Performed By: #### A KARL, RTOX, UHCGT #### Testing performed at [address] [place] [address] OXYCODONE Negative Normal NEGATIVE [facility] Comment on above: Result Comment: <100 ng/ml CUTOFF Performed By: #### A KARL, RTOX, UHCGT #### Testing performed at [address] [place] [address] PHENCYCLIDINE Negative Normal NEGATIVE [facility] Comment on above: Result Comment: <25 ng/ml CUTOFF Performed By: #### A KARL, RTOX, UHCGT #### Testing performed at [address] [place] [address] PROPOXYPHENE Negative Normal NEGATIVE [facility] Comment on above: Result Comment: <300 ng/ml CUTOFF Performed By: #### A KARL, RTOX, UHCGT #### Testing performed at [address] [place] [address] TRICYCLIC ANTIDEPRESSANTS Negative Normal NEGATIVE [facility] Comment on above: Result Comment: <300 ng/ml CUTOFF Performed By: #### A KARL, RTOX, UHCGT #### Testing performed at [address] [place] [address] FENTANYL Negative Normal NEGATIVE [facility] Comment on above: Result Comment: 20 n g/mL CUTOFF *Unconfirmed Screening Result* Unconfirmed screening results are to be used only for medical treatment purposes. This test has not been approved by the FDA. Performed By: #### A KARL, RTOX, UHCGT #### Testing performed at [address] [place] [address] TSHon 02-10-2023 TSH 1.060 uIU/ML Normal 0.465-4.680 [facility] Comment on above: Performed By: #### A KARL, RTOX, UHCGT #### Testing performed at [address] [address] URINE HCG QUALon 09-12-2023 Beta HCG ( test) Ql (U) Negative Normal NEGATIVE [facility] Comment on above: Performed By: #### A KARL, RTOX, [facility] #### Testing performed at [facility] [address] [place] [address] MUMPS IGG ANTIBODYon 023 MUMPS IGG ANTIBODY Positive Normal [facility] Comment on above: Result Comment: INTE RPRETATIVE [...] in serological assays. Performed By: #### M UMPG #### [facility] [address] [place] [address] RUBELLA IGG ABon 12-17-2022 RUBELLA IGG AB Positive [facility] Comment on above: Result Comment: INTE [...] in serological assays. Performed By: #### R UBIG #### [facility] [address] [place] [address] RUBEOLA IGG ABon 07-19-2023 RUBEOLA IGG AB Positive [facility] Comment on above: Result Comment: INTE [...] assays. Performed By: #### R UBEG #### [facility] [address] [place], [place] VARICELLA ZOSTER IGG ABon VARICELLA ZOSTER IGG AB Negative Normal NEGATIVE [facility] Comment on above: Result Comment: INTE RPRETATIVE [...] results in serological assays. Performed By: #### Nabeel CONTRERASZG #### [facility] [address] [place], [place] VARICELLA ZOSTER IGG ABon Lab Specimen Source Normal [facility] Comment on above: Performed By: #### V ARZG #### [facility] [address] [place], [place] Performed By: #### M UMPG #### [facility] [address] [place], [place] Performed By: #### R UBIG #### [facility] [address] [place] [address] Performed By: #### R UBEG #### [facility] [address] 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 Over the last 2 weeks have you felt down, depressed or hopeless? (If yes, answer PHQ-9 below)No PHQ-2 #2. Over the last 2 weeks have you felt little interest or pleasure in doing things? (If yes, answer PHQ-9 below)No Falls Screening (Age 18+)a) No falls within the last year [id number] Physical Exam PHYSICAL EXAMINATION: Well-developed, well nourished, [...] no guard (more content not included)... Normal [employer] Tobacco Screening.on 023 Adult depression screening assessment No [facility] Phone: Fall risk assessment a) No falls within the last year [employer] Phone: Last menstrual period start date 17Nov2022 [facility] [address] Work Phone: Tobacco use status CPHS b) No [facility] [address] Work Phone: 36on 11-20-2022 36 Printed [facility] 36on 11-19-2022 36 ROUTING TO STEPHANIE ARECHIGA TEAM. [facility] 36 Name of Caller: Jamia landers Contact Reason for Appointment: Aye submitted an online request on 11/18/22 regarding a call back to get scheduled for a TIRE DEBEADER appt for Gastric Bypass Consult. Aye states she has met all insurance requirements. Aye states she would like to get scheduled for the first available appt. Aye states she is available for call back anytime. Please contact Aye and advise. Office Name: [facility] Medication Refills need, if any: N/A Medication Name: N/A [facility] PLASMA ZINCon 11-19-2022 PLASMA ZINC 84 [facility] Comment on above: Result Comment: Refe rence range: 44 to 115 Unit: ug/dL (NOTE) This test was developed and its performance characteristics determined by [facility]. It has not been cleared or approved by the Food and Drug Administration. Detection Limit = [address] [facility] Performed By: #### L VB1 #### Testing performed at [facility] VIT.B1 THIAMINE-BLDon 2022 VIT.B1 THIAMINE-BLD 146.9 [facility] Comment on above: Result Comment: Refe rence range: 66.5 to 200.0 Unit: nmol/L (NOTE) This test was developed and its performance characteristics determined by [facility]. It has not been cleared or approved by the Food and Drug Administration. PERFORMED AT [facility] Performed By: #### L VB1 ####Testing performed at [facility] 25 0H VITAMIN D LEVELon 10-30 25 0H VITAMIN D LEVEL 27.0 NG/ML Low >30 [facility] Comment on above: Result Comment: DEFICIENT <20 NG/ML INSUFFICIENT 20-<30 NG/ML SUFFICIENT 30-100 NG/ML POTENTIAL TOXICITY >100 NG/ML Performed By: #### A FELIPA SHETH UHCGT #### Testing performed at [address] [address] B12 FOLATEon 11-17-2022 Cobalamin (Vitamin B12) [Mass/Vol] 454 pg/mL Normal 180-914 [facility] Comment on above: Performed By: #### A RT KARLOX UHCGT #### Testing performed at [address] [address] FOLATE >23.6 Normal >5.9 [facility] Comment on above: Performed By: #### A FELIPA SHETH UHCGT #### Testing performed at [address] [address] CBCon 11-17-2022 ABSOLUTE BAS 0.0 10*3/uL Normal 0.0-0.2 [facility] Comment on above: Performed By: #### L VB1 #### Testing performed at [facility] ABSOLUTE EOS 0.1 10*3/uL Normal 0.0-0.7 [facility] Comment on above: Performed By: #### L VB1 #### Testing performed at [facility] ABSOLUTE NEUTROPHIL COUNT 4.9 10*3/uL Normal 1.4-6.5 [facility] Comment on above: Performed By: #### L VB1 #### Testing performed at [facility] Basophils/100 WBC (Bld) 0.4 % Normal 0.0-2.0 [facility] Comment on above: Performed By: #### L VB1 #### Testing performed at [facility] DTYPE AUTO DIFF Normal [facility] Comment on above: Performed By: #### L VB1 #### Testing performed at [facility] Eosinophils/100 WBC (Bld) 1.1 % Normal 0.0-11.0 [facility] Comment on above: Performed By: #### L VB1 #### Testing performed at [facility] Lymphocytes (Bld) [#/Vol] 2.5 10*3/uL Normal 1.2-3.4 [facility] Comment on above: Performed By: #### L VB1 #### Testing performed at [facility] Lymphocytes/100 WBC (Bld) 30.5 % Normal 20.0-55.0 [facility] Comment on above: Performed By: #### L VB1 #### Testing performed at [facility] Monocytes (Bld) [#/Vol] 0.6 10*3/uL Normal 0.0-0.7 [facility] Comment on above: Performed By: #### L VB1 #### Testing performed at [facility] Monocytes/100 WBC (Bld) 7.9 % Normal 0.0-10.0 [facility] Comment on above: Performed By: #### L VB1 #### Testing performed at [facility] Neutrophils/100 WBC (Bld) 60.1 % Normal 37.0-75.0 [facility] Comment on above: Performed By: #### L VB1 #### Testing performed at [facility] Erythrocyte distribution width (RBC) [Ratio] 13.7 % Normal 11.5-14.5 [facility] Comment on above: Performed By: #### L VB1 #### Testing performed at [facility] Hematocrit (Bld) [Volume fraction] 39.0 % Normal 36.0-48.0 [facility] Comment on above: Performed By: #### L VB1 #### Testing performed at [facility] Hemoglobin (Bld) [Mass/Vol] 12.7 g/dL Normal 12.0-16.0 [facility] Comment on above: Performed By: #### L VB1 #### Testing performed at [facility] MCH (RBC) [Entitic mass] 27.9 pg Normal 26.0-35.0 [facility] Comment on above: Performed By: #### L VB1 #### Testing performed at [facility] MCHC (RBC) [Mass/Vol] 32.6 g/dL Normal 27.0-37.0 [facility] Comment on above: Performed By: #### L VB1 #### Testing performed at [facility] MCV (RBC) [Entitic vol] 85.7 fL Normal 80.0-100.0 [facility] Comment on above: Performed By: #### L VB1 #### Testing performed at [facility] Platelet mean volume (Bld) [Entitic vol] 8.1 fL Normal 7.4-11.0 [facility] Comment on above: Performed By: #### L VB1 #### Testing performed at [facility] Platelets (Bld) [#/Vol] 327 10*3/uL Normal 130-400 [facility] Comment on above: Performed By: #### L VB1 #### Testing performed at [facility] RBC (Bld) [#/Vol] 4.55 10*6/uL Normal 4.0-5.4 [facility] Comment on above: Performed By: #### L VB1 #### Testing performed at [facility] WBC (Bld) [#/Vol] 8.1 10*3/uL Normal 3.6-11.0 [facility] Comment on above: Performed By: #### L VB1 #### Testing performed at [facility] CMP FASTINGon 11-17-2022 A:G RATIO 1.1 RATIO Low 1.3-2.2 [facility] Comment on above: Performed By: #### L VB1 #### Testing performed at [facility] ALBUMIN 3.8 G/dl Normal 3.5-5.0 [facility] Comment on above: Performed By: #### L VB1 #### Testing performed at [facility] ALP [Catalytic activity/Vol] 78 U/L Normal 38-126 [facility] Comment on above: Performed By: #### L VB1 #### Testing performed at [facility] ALT [Catalytic activity/Vol] 22 U/L Normal 14-54 [facility] Comment on above: Performed By: #### L VB1 #### Testing performed at [facility] AST [Catalytic activity/Vol] 19 U/L Normal 15-41 [facility] Comment on above: Performed By: #### L VB1 #### Testing performed at [facility] Bilirubin [Mass/Vol] 0.6 mg/dL Normal 0.2-1.2 [facility] Comment on above: Performed By: #### L VB1 #### Testing performed at [facility] Calcium [Mass/Vol] 9.0 mg/dL Normal 8.4-10.2 [facility] Comment on above: Performed By: #### L VB1 #### Testing performed at [facility] Chloride [Moles/Vol] 102 mmol/L Normal 98-107 [facility] Comment on above: Performed By: #### L VB1 #### Testing performed at [facility] CO2 [Moles/Vol] 26 mmol/L Normal 22-30 [facility] Comment on above: Performed By: #### L VB1 #### Testing performed at [facility] Creatinine [Mass/Vol] 0.79 mg/dL Normal 0.52-1.04 [facility] Comment on above: Performed By: #### L VB1 #### Testing performed at [facility] EST. GFR, 113 ml/min/1.73sq.m [facility] Comment on above: Performed By: #### L VB1 #### Testing performed at [facility] EST. GFR,Non 94 ml/min/1.73sq.m [facility] Comment on above: Performed By: #### L VB1 #### Testing performed at [facility] GFR Information Average GFR for 20-2 9 years old = 116. [facility] Comment on above: Result Comment: J2[employer] Application Developer karl Kidney disease, GFR = <60. Kidney failure, GFR = <15. The GFR estimate is not adjusted for extreme body surface area or acute process, nor has it been validated for women or ethnic groups other than and . Performed By: #### L VB1 #### Testing performed at [facility] Glucose [Mass/Vol] 92 mg/dL Normal 70-100 [facility] Comment on above: Result Comment: NORMAL <100 mg/dL PREDIABETES 101-126 mg/dL DIABETES 126 mg/dL or higher Performed By: #### L VB1 #### Testing performed at [facility] Potassium [Moles/Vol] 3.9 mmol/L Normal 3.5-5.1 [facility] Comment on above: Performed By: #### L VB1 #### Testing performed at [facility] Protein [Mass/Vol] 7.4 g/dL Normal 6.3-8.2 [facility] Comment on above: Performed By: #### L VB1 #### Testing performed at [facility] Sodium [Moles/Vol] 136 mmol/L Normal 136-145 [facility] [facility] Comment on above: Performed By: #### L VB1 #### Testing performed at [facility] Urea nitrogen [Mass/Vol] 14 mg/dL Normal 7-20 [facility] Comment on above: Performed By: #### L VB1 #### Testing performed at [facility] HEMOGLOBIN A1Con 11-17-2022 Glucose [Mass/Vol] 117 mg/dL Normal [facility] Comment on above: Performed By: #### H A1CT #### Testing performed at [address] [address] HbA1c (Bld) [Mass fraction] 5.7 % Normal <6 [facility] Comment on above: Result Comment: NORMAL <5.7% PREDIABETES 5.7-6.4% DIABETES 6.5% OR HIGHER Performed By: #### H A1CT #### Testing performed at [address] [address] IRON PROFILEon 11-17-2022 Iron [Mass/Vol] 60 ug/dL Normal 37-170 [facility] Comment on above: Performed By: #### L VB1 #### Testing performed at [facility] IRON BINDING 342 UG/DL Normal 250-450 [facility] Comment on above: Performed By: #### L VB1 #### Testing performed at [facility] TRANSFERRIN SATURATION,CALCULATED 18 % Normal [facility] Comment on above: Performed By: #### L VB1 #### Testing performed at [facility] LIPID PROFILEon 11-17-2022 Cholesterol [Mass/Vol] 174 mg/dL Normal 100-199 [facility] Comment on above: Performed By: #### L VB1 #### Testing performed at [facility] Cholesterol in HDL [Mass/Vol] 43 mg/dL Normal 40-60 [facility] Comment on above: Performed By: #### L VB1 #### Testing performed at [facility] Cholesterol in LDL [Mass/Vol] 99 mg/dL Normal 0-100 [facility] Comment on above: Performed By: #### L VB1 #### Testing performed at [facility] Cholesterol in VLDL [Mass/Vol] 32 mg/dL High 5.0-25.0 [facility] Comment on above: Performed By: #### L VB1 #### Testing performed at [facility] Cholesterol.total/Desirae sterol in HDL [Mass ratio] 4.05 {ratio} Normal [facility] Comment on above: Result Comment: RISK TOTAL/HDL RATIO MEN WOMEN 1/2 AVERAGE 3.43 3.27 AVERAGE 4.97 4.44 2X AVERAGE 9.55 7.05 3X AVERAGE 23.99 11.04 Performed By: #### L VB1 #### Testing performed at [facility] Triglyceride [Mass/Vol] 160 mg/dL High <150 [facility] Comment on above: Performed By: #### L VB1 #### Testing performed at [facility] NICOTINE SCREEN, URINEon COTININE Negative Normal NEGATIVE [facility] Comment on above: Result Comment: Cut- off concentration of 200 ng/mL Performed By: #### A KARL RTOX, UHCGT ####Testing performed at [address] [address] RAPID TOX SCREEN,URINEon AMPHETAMINE Negative Normal NEGATIVE [facility] Comment on above: Result Comment: <500 ng/ml CUTOFF Performed By: #### A KARL, RTOX, UHCGT ####Testing performed at [address] [address] BARBITURATES Negative Normal NEGATIVE [facility] Comment on above: Result Comment: <200 ng/ml CUTOFF Performed By: #### A KARL, RTOX, UHCGT ####Testing performed at [address] [address] BENZODIAZEPINES Negative Normal NEGATIVE [facility] Comment on above: Result Comment: <150 ng/ml CUTOFF Performed By: #### A KARL, RTOX, UHCGT ####Testing performed at [address] [address] BUPRENORPHINE Negative Normal NEGATIVE [facility] Comment on above: Result Comment: <10 ng/ml CUTOFF Performed By: #### A KARL, RTOX, UHCGT ####[place] [address] CANNABINOIDS Negative Normal NEGATIVE [facility] Comment on above: Result Comment: <50 ng/ml CUTOFF Performed By: #### A KARL, RTOX, UHCGT ####Testing performed at [place] [id number] COCAINE Negative Normal NEGATIVE [facility] Comment on above: Result Comment: <150 ng/ml CUTOFF Performed By: #### A KARL, RTOX, UHCGT ####[place] [address] FENTANYL Negative Normal NEGATIVE [facility] Comment on above: Result Comment: 20 n g/mL CUTOFF *Unconfirmed Screening Result* Unconfirmed screening results are to be used only for medical treatment purposes. This test has not been approved by the FDA. Performed By: #### A KARL, RTOX, UHCGT ####Testing performed at [address] [address] METHADONE Negative Normal NEGATIVE [facility] Comment on above: Result Comment: <200 ng/ml CUTOFF Performed By: #### A KARL, RTOX, UHCGT ####Testing performed at [address] [address] METHAMPHETAMINE Negative Normal NEGATIVE [facility] Comment on above: Result Comment: <500 ng/ml CUTOFF Performed By: #### A KARL, RTOX, UHCGT ####Testing performed at [address] [place] [address] OPIATES Negative Normal NEGATIVE [facility] Comment on above: Result Comment: <100 ng/ml CUTOFF Performed By: #### A KARL, RTOX, UHCGT ####Testing performed at [address] [place] [address] OXYCODONE Negative Normal NEGATIVE [facility] Comment on above: Result Comment: <100 ng/ml CUTOFF Performed By: #### A KARL, RTOX, UHCGT ####Testing performed at [address] [place] [address] PHENCYCLIDINE Negative Normal NEGATIVE [facility] Comment on above: Result Comment: <25 ng/ml CUTOFF Performed By: #### A KARL, RTOX, UHCGT ####Testing performed at [address] [place] [address] PROPOXYPHENE Negative Normal NEGATIVE [facility] Comment on above: Result Comment: <300 ng/ml CUTOFF Performed By: #### A KARL, RTOX, UHCGT ####Testing performed at [address] [place] [address] TRICYCLIC ANTIDEPRESSANTS Negative Normal NEGATIVE [facility] Comment on above: Result Comment: <300 ng/ml CUTOFF Performed By: #### A KARL, RTOX, UHCGT ####Testing performed at [address] [place] [address] TSHon 11-17-2022 TSH 0.935 uIU/ML Normal 0.45-5.33 [facility] Comment on above: Performed By: #### A KARL, RTOX, UHCGT #### Testing performed at [address] [place] [address] URINE HCG QUALon 11-17-2022 Beta HCG ( test) Ql (U) Negative Normal NEGATIVE [facility] Comment on above: Performed By: #### A KARL, RTOX, UHCGT ####Testing performed at [address] [place] [address] XR CHEST PA AND LATERALon XR CHEST PA AND LATERAL EXAM: XR CHEST P A AND LATERAL HISTORY: PRE OP COMPARISON: 12/01/2020 TECHNIQUE: PA and lateral views of the chest. FINDINGS: The cardiomediastinal silhouette is normal. No focal consolidation is identified. There is no pneumothorax. No pleural effusion is noted. The osseous structures are intact. IMPRESSION: No acute cardiopulmonary process. Normal [facility] XR Chest PA and Lateralon IMPRESSION: No [...] intact. IMPRESSION IMPRESSION: No acute cardiopulmonary process. [facility] Radiology Study observation (narrative) [facility] XR Chest PA and LateralOrder ed By: Travis Huerta on 11-17-2022 [facility] Work Phone: HEPATITIS B CORE AB-TOTALon 11-12-2022 HEP. B CORE AB-TOTAL Non-Reactive Normal NONREACTIVE [facility] Comment on above: Result Comment: Resu lts from patients taking biotin supplements or receiving high-dose biotin therapy should be interpreted with caution due to possible interference with this test. Providers may contact their local laboratory for further information. Performed By: #### H BCRT #### [facility] [address] [place] [address] HEPATITIS B CORE AB-TOTALon 11-11-2022 Lab Specimen Source Normal [facility] Comment on above: Performed By: #### H BCRT #### [facility] [address] [place] [address] Hepatitis B Core Antibody, T otalon 11-11-2022 Hepatitis B Core Antibody, Total Non-Reactive See Below [address] Work Phone: Comment on above: SOURCE: Reference Ra jaimee: NONREACTIVE Results from patients taking biotin supplements or receiving high-dose biotin therapy should be interpreted with caution due to possible interference with this test. Providers may contact their local laboratory for further information. No Panel Informationon 10-03 0.9% [facility] [address] Work Phone: Class II Risk [facility] [address] Work Phone: 1 {Points} [facility] [address] Work Phone: Office Visit (Cardiology)on 10-03-2022 Follow-up visit Diagnoses/Problems Assessed Pre-operative clearance (V72.84) (Z01.818) Inappropriate sinus tachycardia (427.89) (R00.0) Orders Pre-operative clearance IO EKG Electrocardiogram- 12 Lead; Status:Complete; Done: 03Oct2022 History of Present Illness Aye Weir is a 27-year-old female with a h/o anemia, inappropriate sinus tachycardia, anxiety, and obesity presenting for pre-operative surgical clearance[facility]: -Patient currently can [...] DANDC History of Uterine polypectomy History of Cushing tooth extraction Resolved Date: 02 Aug 2019 [...] in the HPI. Vitals Vital Signs Recorded: 03Oct2022 03:16PM Heart Aeso519 Xgdwwcna300 Uvsimlmbh54 Height5 ft 6 in Qxorjh550 lb 7 oz BMI Smufypfibc46.24 kg/m2 BSA Calculated2.43 Tobacco Useb) No Falls Screening (Age 18+)a) No falls within the last year O2 Ayuhsesfym86 Physical Exam General: awake, alert and oriented. [...] erythema Neurol (more content not included)... Normal i[facility] Tobacco Screening.on 023 Fall risk assessment a) No falls within the last year [employer] [facility] Work Phone: Tobacco use status CPHS b) No M [facility] [address] Work Phone: CBC AND DIFFERENTIALon 09-29 % AUTOMATED IMMATURE GRAN 0.3 % Normal 0.0 - 0.9 [facility] Comment on above: Result Comment: Jennifer ture Granulocyte Count (IG) includes promyelocytes, myelocytes and metamyelocytes but does not include bands. Percent differential counts (%) should be interpreted in the context of the absolute cell counts (cells/L). Performed By: #### C BCDF #### [address] [address] Basophils (Bld) [#/Vol] 0.04 10*3/uL Normal 0.00 - 0.1 0 [facility] Comment on above: Performed By: #### C BCDF #### [address] [address] Eosinophils (Bld) [#/Vol] 0.13 10*3/uL Normal 0.00 - 0.70 [facility] Comment on above: Performed By: #### C BCDF #### [address] [address] Eosinophils/100 WBC (Bld) 1.3 % Normal 0.0 - 6.0 [facility] Comment on above: Performed By: #### C BCDF #### [address] [address] Lymphocytes (Bld) [#/Vol] 2.89 10*3/uL Normal 1.20 - 4.80 [facility] Comment on above: Performed By: #### C BCDF #### [address] [address] Monocytes (Bld) [#/Vol] 0.71 10*3/uL Normal 0.10 - 1.0 0 [facility] Comment on above: Performed By: #### C BCDF #### [address] [address] Neutrophils (Bld) [#/Vol] 6.17 10*3/uL Normal 1.20 - 7.70 [facility] Comment on above: Result Comment: Perc ent differential counts (%) should be interpreted in the context of the absolute cell counts (cells/L). Performed By: #### C BCDF #### [place] [address] RBC 4.44 x10E12/L Normal 4.00 - 5.20 [facility] Comment on above: Performed By: #### C BCDF #### [place] [address] Lab Specimen Source Normal [facility] Comment on above: Performed By: #### C BCDF #### [place] [address] Performed By: #### V TB12 #### [place] [address] Performed By: #### T HYDS #### [place] [address] Performed By: #### C MP #### [place] [address] COMPREHENSIVE PANELon 2022 Albumin [Mass/Vol] 4.1 g/dL Normal 3.4 - 5.0 [facility] Comment on above: Performed By: #### C MP #### [place] [address] ALP [Catalytic activity/Vol] 86 U/L Normal 33 - 110 [facility] [address] Work Phone: Comment on above: Performed By: #### C MP #### [place] [address] ALT [Catalytic activity/Vol] 18 U/L Normal 7 - 45 [facility] Comment on above: Result Comment: Jodi ents treated with Sulfasalazine may generate falsely decreased results for ALT. Performed By: #### C MP #### [place] [address] Anion gap [Moles/Vol] 12 mmol/L Normal 10 - 20 [facility] [address] Work Phone: Comment on above: Performed By: #### C MP #### [address] [address] AST [Catalytic activity/Vol] 16 U/L Normal 9 - 39 [facility] Comment on above: Performed By: #### C MP #### [address] [address] Bilirubin [Mass/Vol] 0.2 mg/dL Normal 0.0 - 1.2 [facility] [address] Work Phone: Comment on above: Performed By: #### C MP #### [address] [address] Calcium [Mass/Vol] 8.9 mg/dL Normal 8.6 - 10.3 -[facility] [place] [address] [address] Work Phone: Comment on above: Performed By: #### C MP #### [address] [address] Chloride [Moles/Vol] 104 mmol/L Normal 98 - 107 -C [facility] [place] [address] [address] Work Phone: Comment on above: Performed By: #### C MP #### [address] [address] Creatinine [Mass/Vol] 0.83 mg/dL Normal 0.50 - 1.05 [facility] [address] [address] Work Phone: Comment on above: Reference Range: 0.5 0 - 1.05 Performed By: #### C MP #### [address] [address] eGFR FEMALE >90 Normal >90 [facility] Comment on above: Result Comment: CALC ULATIONS OF ESTIMATED GFR ARE PERFORMED USING THE 2020 CKD-EPI STUDY REFIT EQUATION WITHOUT THE RACE VARIABLE FOR THE IDMS-TRACEABLE CREATININE METHODS. https://jasn.asnjournals.org/content//ASN.2020 585283 Performed By: #### C MP #### [address] [address] Glucose [Mass/Vol] 74 mg/dL Normal 74 - 99 [facility] [address] Work Phone: Comment on above: SOURCE: Performed By: #### C MP #### [address] [address] HCO3 (Bld) [Moles/Vol] 27 mmol/L Normal 21 - 32 [facility] Comment on above: Performed By: #### C MP #### [address] [address] Potassium [Moles/Vol] 3.9 mmol/L Normal 3.5 - 5.3 [facility] [address] Work Phone: Comment on above: Performed By: #### C MP #### [address] [address] Protein [Mass/Vol] 7.1 g/dL Normal 6.4 - 8.2 [facility] [address] Work Phone: Comment on above: Performed By: #### C MP #### [address] [address] Sodium [Moles/Vol] 139 mmol/L Normal 136 - 145 [facility] [address] Work Phone: Comment on above: Performed By: #### C MP #### [address] [address] Urea nitrogen [Mass/Vol] 18 mg/dL Normal 6 - 23 [facility] [address] Work Phone: Comment on above: Performed By: #### C MP #### [address] [address] Complete Blood Count + Diffe rentialon 09-29-2022 Basophils/100 WBC (Bld) 0.4 % Normal 0.0 - 2.0 [facility] [address] Work Phone: Comment on above: Performed By: #### C BCDF #### [address] [address] Erythrocyte distribution width (RBC) [Ratio] 13.6 % Normal 11.5 - 14.5 -Cardiolo gy-[address] Work Phone: Comment on above: Reference Range: 11. 5 - 14.5 Performed By: #### C BCDF #### [address] [address] Hematocrit (Bld) [Volume fraction] 38.7 % Normal 36.0 - 46.0 -Cardiolo gy-[address] Work Phone: Comment on above: Reference Range: 36. 0 - 46.0 Performed By: #### C BCDF #### [address] [address] Hemoglobin (Bld) [Mass/Vol] 12.2 g/dL Normal 12.0 - 16.0 -[facility] gy-[address] Work Phone: Comment on above: Reference Range: 12. 0 - 16.0 Performed By: #### C BCDF #### [address] [address] Lymphocytes/100 WBC (Bld) 29.0 % Normal 13.0 - 44.0 -[facility] gy[address] Work Phone: Comment on above: Reference Range: 13. 0 - 44.0 Performed By: #### C BCDF #### [address] [address] MCHC (RBC) [Mass/Vol] 31.5 g/dL Low 32.0 - 36.0 MP [facility]-[address] Work Phone: Comment on above: Reference Range: 32. 0 - 36.0 Performed By: #### C BCDF #### [address] [address] MCV (RBC) [Entitic vol] 87 fL Normal 80 - 100 [facility] [address] Work Phone: Comment on above: Performed By: #### C BCDF #### [address] [address] Monocytes/100 WBC (Bld) 7.1 % Normal 2.0 - 10.0 [facility] [address] Work Phone: Comment on above: Performed By: #### C BCDF #### [address] [address] Neutrophils/100 WBC (Bld) 61.9 % Normal 40.0 - 80.0 [facility] [address] Work Phone: Comment on above: Reference Range: 40. 0 - 80.0 Performed By: #### C BCDF #### [address] [address] Platelets (Bld) [#/Vol] 364 10*3/uL Normal 150 - 450 [facility] [address] Work Phone: Comment on above: Performed By: #### C BCDF #### [address] [address] WBC (Bld) [#/Vol] 10.0 10*3/uL Normal 4.4 - 11.3 [facility] Work Phone: Comment on above: SOURCE: Performed By: #### C BCDF #### [address] [address] RBC (Bld) [#/Vol] 4.44 {x10E12/L} See Below [facility] [address] Work Phone: Comment on above: Reference Range: 4.0 0 - 5.20 Complete Blood Count + Differential 0.04 {x10E9/L} See Below [facility] [address] Work Phone: Comment on above: Reference Range: 0.0 0 - 0.10 Complete Blood Count + Differential 0.13 {x10E9/L} See Below [facility] [address] [address] Work Phone: Comment on above: Reference Range: 0.0 0 - 0.70 Complete Blood Count + Differential 0.71 {x10E9/L} See Below [facility] Work Phone: Comment on above: Reference Range: 0.1 0 - 1.00 Complete Blood Count + Differential 2.89 {x10E9/L} See Below [facility] [address] [address] Work Phone: Comment on above: Reference Range: 1.2 0 - 4.80 Complete Blood Count + Differential 6.17 {x10E9/L} See Below -[facility] [address] [address] Work Phone: Comment on above: Reference Range: 1.2 0 - 7.70 Percent differential counts (%) should be interpreted in the context of the absolute cell counts (cells/L). Complete Blood Count + Differential 1.3 % 0.0 - 6.0 [facility] [address] [address] Work Phone: Complete Blood Count + Differential 0.3 % 0.0 - 0.9 [facility] Work Phone: Comment on above: Immature Granulocyte Count (IG) includes promyelocytes, myelocytes and metamyelocytes but does not include bands. Percent differential counts (%) should be interpreted in the context of the absolute cell counts (cells/L). Hemoglobin A1Con 09-29-2022 Glucose [Mass/Vol] 114 mg/dL Normal [facility] [address] [address] Work Phone: Comment on above: Performed By: #### H BA1E #### [place] [address] HbA1c (Bld) [Mass fraction] 5.6 % Normal [facility] [address] [address] Work Phone: Comment on above: Diagnosis of Diabete s-Adults Non-Diabetic: < or = 5.6% Increased risk for developing diabetes: 5.7-6.4% Diagnostic of diabetes: > or = 6.5%. Monitoring of Diabetes Age (y) Therapeutic Goal (%) Adults: >18 <7.0 Pediatrics: 13-18 <7.5 7-12 <8.0 0- 6 7.5-8.5 [place] [employer]. Diabetes Care 33(S1), Jun 2009. Result Comment: Diag nosis of Diabetes-Adults Non-Diabetic: < or = 5.6% Increased risk for developing diabetes: 5.7-6.4% Diagnostic of diabetes: > or = 6.5% . Monitoring of Diabetes Age (y) Therapeutic Goal (%) Adults: >18 <7.0 Pediatrics: 13-18 <7.5 7-12 <8.0 0- 6 7.5-8.5 [place] [employer]. Diabetes Care 33(S1), Jun 2009. Performed By: #### H BA1E #### [place] [address] Laboratory - Chemistry and C hemistry - challengeon 09-29-2022 Albumin BCP dye [Mass/Vol] 4.1 g/dL 3.4 - 5.0 [facility] [address] Work Phone: ALT With P-5'-P [Catalytic activity/Vol] 18 U/L 7 - 45 [facility] [address] Work Phone: Comment on above: Patients treated wit h Sulfasalazine may generate falsely decreased results for ALT. AST With P-5'-P [Catalytic activity/Vol] 16 U/L 9 - 39 [facility] [address] Work Phone: CO2 [Moles/Vol] 27 mmol/L 21 - 32 [facility] [address] Work Phone: No Panel Informationon 09-29 >90 >90 [facility] [address] Work Phone: Comment on above: CALCULATIONS OF SAURABH MATED GFR ARE PERFORMED USING THE 2020 CKD-EPI STUDY REFIT EQUATION WITHOUT THE RACE VARIABLE FOR THE IDMS-TRACEABLE CREATININE METHODS.https://jasn.asnjournals.org/content// ASN.1786442425 TSH WITH REFLEX TO FREE T4 I F ABNORMALon 09-29-2022 TSH Qn 1.28 m[IU]/L Normal 0.44 - 3.98 [facility] [address] Work Phone: Comment on above: SOURCE: Reference Ra nge: 0.44 - 3.98 TSH testing is performed using different testing methodology at [facility] than at other [facility]. Direct result comparisons should only be made within the same method. Result Comment: TSH testing is performed using different testing methodology at [facility] than at other [facility]. Direct result comparisons should only be made within the same method. Performed By: #### T HYDS #### [address] [address] Vitamin B12, Serumon 023 Cobalamin (Vitamin B12) [Mass/Vol] 411 pg/mL Normal 211 - 911 [facility] [address] Work Phone: Comment on above: SOURCE: Performed By: #### V TB12 #### [address] [address] SLEEP STUDY (SCANNED)Ordered By: Aishwarya Man on 02-27-2022 [facility] SLEEP STUDY PSG (SCANNED)Ord ered By: Aishwarya Man on 01-27-2022 Radiology Study observation (narrative) [facility] SLEEP STUDY PSG (SCANNED)Ord ered By: Aishwarya Man on 01-24-2022 [facility] MR WRIST RIGHT WITHOUT CONTR Fern 01-14-2022 [...] on ThuJan 15, 2022 10:32:58 AM EDT [facility] Comment on above: Order Comment: Injur [...] ThuDec 31, 2021 2:58:20 PM EDT Normal [facility] Comment on above: Order Comment: Injur y/Trauma or Illness?:Illness/Other How long have you had these symptoms (acute/chronic)?:Chronic Reason for exam?:right wrist pain, no injury History of cancer?:u Surgeries, chemotherapy, or radiation?:u Type of Exam?:Initial Additional signs and symptoms?:pt. has hard palpable cyst posterior aspect or right wrist. NM Biliary with EF w/wo CCKo n 12-18-2021 NM Biliary with EF w/wo CCK Normal [facility] Work Phone: Office Visit (Cardiology)on 12-05-2021 Follow-up visit Orders Pre-operative clearance IO EKG Electrocardiogram- 12 Lead; Status:Complete; Done: [id number] Chief Complaint Preoperative evaluation History of Present Twiurfq63-bhcp-bpd female who has been previously diagnosed with [...] DANDC History of Uterine polypectomy History of Cushing tooth extraction Resolved Date: 02 Aug 2019 [...] Denies any dizziness/tingling Vitals Vital Signs Recorded: [id number] 01:42PM Heart Rate71 Dgvvxguh740 Ijeepyepw57 Height5 ft 6 in Orregk528 lb BMI Liiprbemvj10.81 kg/m2 BSA Calculated2.45 Tobacco Useb) No Falls Screening (Age 18+)a) No falls within the last year O2 Udxesbzmyx72 Physical Exam General: AANDOx3 HEENT: NC/AT; EOMI; PERRLA, external ear is normal Neck: supple; no JVD Chest: CTAB; no wheezing CVS: S1S2 normal, no murmurs Abdomen: Soft, NT/ND, no organomegaly Extremities: no clubbing/cyanosis/edema Neuro: Grossly intact Results/Data [id number] 02:66UAvr-KNBRXW-Klxk, Avirup [Mar 21, 2020 11:41AM AMA, FrontDesk] AMA Intake Activity Log Entry by Angelique Rihcter ([email or web address]) on 03/21/2020 11:36 AM Status Change : Confirmed - SMN Module [Mar 21, 2020 11:41AM AMA, FrontDesk] AMA Intake updated by Angelique Richter ([facility]) on 03/21/2020 11:36 AM New Recipient: Markos Polanco New Appointment Date: 04/02/2020 2:00 PM [Mar 21, 2020 11:41AM AMA, FrontDesk] AMA Intake Activity (more content not included)... Normal i[facility] Tobacco Screening.on 022 Fall risk assessment a) No falls within the last year [facility] Work Phone: Tobacco use status CPHS b) No M [facility] Work Phone: Radiologyon 12-04-2021 US Gallbladder Normal [facility] [place] Work Phone: CLOST DIFF. TOXIN, PCRon C. difficile toxin genes TIFFANIE+probe Ql (Stl) Not detected See Below [facility] Work Phone: Comment on above: Reference [...] TIFFANIE+probe Ql (Stl) Not detected See Below [facility] Work Phone: Comment on above: Reference Range: NOT DETECTED E. coli stx1 gene TIFFANIE+probe Ql (Unsp spec) Not detected See Below [facility] Work Phone: Comment on above: Reference Range: NOT DETECTED E. coli stx2 gene TIFFANIE+probe Ql (Unsp spec) Not detected See Below [facility] Work Phone: Comment on above: Reference Range: NOT DETECTED Norovirus genogroup I and II RNA TIFFANIE+probe Nom (Stl) Not detected See Below [facility] [place] Work Phone: Comment on above: Reference Range: NOT DETECTED Rotavirus RNA TIFFANIE+probe Nom (Stl) Not detected See Below [facility] Work Phone: Comment on above: Reference [...] Ql (Unsp spec) Not detected See Below [facility] Work Phone: Comment on above: Reference Range: NOT DETECTED Vibrio sp DNA TIFFANIE+probe Nom (Unsp spec) Not detected See Below [facility] Work Phone: Comment on above: Reference Range: NOT DETECTED Yersinia sp DNA TIFFANIE+probe Nom (Unsp spec) Not detected See Below [facility] [place] Work Phone: Comment on above: SOURCE: Reference Ra nge: NOT DETECTED STOOL PATHOGEN PCR PANEL Not detected See Below [facility] Work Phone: Comment on above: Reference Range: NOT DETECTED Blood Pressure Cuff Sizeon 0 11-28-2021 Fall risk assessment a) No falls within the last year [facility] Work Phone: Tobacco use status CPHS b) No M [facility] Work Phone: Blood Pressure Cuff Size Adult [facility] Work Phone: CT Abdomen and Pelvis with I V Contraston 11-23-2021 CT Abdomen and Pelvis W contrast IV Normal [facility] Work Phone: Complete Blood Count + Diffe rentialon 11-23-2021 Basophils/100 WBC (Bld) 1.0 % 0.0 - 2.0 M [facility] Work Phone: [phone] Erythrocyte distribution width (RBC) [Ratio] 13.8 % See Below [facility] Work Phone: Comment on above: Reference Range: 11. 5 - 14.5 Hematocrit (Bld) [Volume fraction] 39.0 % See Below [facility] Work Phone: Comment on above: Reference Range: 36. 0 - 46.0 Hemoglobin (Bld) [Mass/Vol] 12.9 g/dL See Below [facility] Work Phone: Comment on above: Reference Range: 12. 0 - 16.0 Lymphocytes/100 WBC (Bld) 28.1 % See Below [facility] Work Phone: Comment on above: Reference Range: 13. 0 - 44.0 MCHC (RBC) [Mass/Vol] 33.0 g/dL See Below [facility] Work Phone: Comment on above: Reference Range: 32. 0 - 36.0 MCV (RBC) [Entitic vol] 85 fL 80 - 100 M [facility] Work Phone: Monocytes/100 WBC (Bld) 8.4 % 2.0 - 10.0 M [facility] Work Phone: [phone] Neutrophils/100 WBC (Bld) 61.1 % See Below [facility] Work Phone: Comment on above: Reference Range: 40. 0 - 80.0 Platelets (Bld) [#/Vol] 349 10*3/uL 150 - 450 [facility] Work Phone: RBC (Bld) [#/Vol] 4.61 {x10E12/L} See Below [facility] Work Phone: Comment on above: Reference Range: 4.0 0 - 5.20 WBC (Bld) [#/Vol] 9.1 10*3/uL 4.4 - 11.3 [facility] Work Phone: Complete Blood Count + Differential 0.10 {x10E9/L} See Below [facility] Work Phone: Comment on above: Reference Range: 0.0 0 - 0.10 Reference Range: 0.0 0 - 0.70 Complete Blood Count + Differential 0.80 {x10E9/L} See Below [facility] Work Phone: Comment on above: Reference Range: 0.1 0 - 1.00 Complete Blood Count + Differential 2.50 {x10E9/L} See Below [facility] Work Phone: Comment on above: Reference Range: 1.2 0 - 4.80 Complete Blood Count + Differential 5.50 {x10E9/L} See Below [facility] Work Phone: Comment on above: Reference Range: 1.2 0 - 7.70 Percent differential counts (%) should be interpreted in the context of the absolute cell counts (cells/L). Complete Blood Count + Differential 1.4 % 0.0 - 6.0 [facility] Work Phone: Complete Blood Count + Differential 0.1 {/100_WBC} [facility] Work Phone: Laboratory - Chemistry and C hemistry - challengeon 11-23-2021 Albumin BCP dye [Mass/Vol] 4.1 g/dL 3.4 - 5.0 [facility] Work Phone: [phone] ALP [Catalytic activity/Vol] 75 U/L 33 - 110 [facility] [place] Work Phone: [phone] ALT With P-5'-P [Catalytic activity/Vol] 19 U/L 7 - 45 [facility] [place] Work Phone: [phone] Comment on above: Patients treated wit h Sulfasalazine may generate falsely decreased results for ALT. Anion gap [Moles/Vol] 10 mmol/L 10 - 20 [facility] Work Phone: [phone] AST With P-5'-P [Catalytic activity/Vol] 15 U/L 9 - 39 [facility] [place] Work Phone: [phone] Bilirubin [Mass/Vol] 0.3 mg/dL 0.0 - 1.2 [facility] Work Phone: [phone] Calcium [Mass/Vol] 8.6 mg/dL 8.6 - 10.3 [facility] Work Phone: [phone] Chloride [Moles/Vol] 108 mmol/L above high threshold 98 - 107 [facility] [place] Work Phone: [phone] CO2 [Moles/Vol] 24 mmol/L 21 - 32 [facility] [place] Work Phone: [phone] Creatinine [Mass/Vol] 0.72 mg/dL See Below [facility] [place] Work Phone: [phone] Comment on above: Reference Range: 0.5 0 - 1.05 Glucose [Mass/Vol] 91 mg/dL 74 - 99 [facility] Work Phone: [phone] Potassium [Moles/Vol] 3.7 mmol/L 3.5 - 5.3 [facility] [place] Work Phone: [phone] Protein [Mass/Vol] 6.9 g/dL 6.4 - 8.2 [facility] Work Phone: [phone] Sodium [Moles/Vol] 138 mmol/L 136 - 145 [facility] Work Phone: Urea nitrogen [Mass/Vol] 14 mg/dL 6 - 23 [facility] Work Phone: Lactate, Levelon 11-23-2021 Lactate [Moles/Vol] 0.6 mmol/L 0.4 - 2.0 [facility] Work Phone: Comment on above: Venipuncture immedia tely after or during the administration of Metamizole may lead to falsely low results. Testing should be performed immediately prior to Metamizole dosing. Lipase, Serumon 11-23-2021 Lipase [Catalytic activity/Vol] 25 U/L 9 - 82 [facility] Work Phone: Comment on above: Venipuncture immedia tely after or during the administration of Metamizole may lead to falsely low results. Testing should be performed immediately prior to Metamizole dosing. T-khkkhr-d-benzoquinone imine (metabolite of Acetaminophen) will generate erroneously low results in samples for patients that have taken toxic doses of acetaminophen. No Panel Informationon 11-23 >90 >90 [facility] Work Phone: Comment on above: CALCULATIONS OF SAURABH MATED GFR ARE PERFORMED USING THE 2020 CKD-EPI STUDY REFIT EQUATION WITHOUT THE RACE VARIABLE FOR THE IDMS-TRACEABLE CREATININE METHODS.https://jasn.asnjournals.org/content// ASN.5603618999 URINALYSIS WITH CULTURE IF I NDICATEDon 11-23-2021 Color (U) Yellow See Below [facility] Work Phone: Comment on above: Reference Range: STR AW,YELLOW Glucose Ql (U) Negative NEGATIVE [facility] Work Phone: Ketones Ql (U) Negative NEGATIVE [facility] Work Phone: [phone] Leukocyte esterase Test strip Ql (U) Negative NEGATIVE [facility] Work Phone: pH (U) 5.0 [pH] 5.0 - 8.0 [facility] Work Phone: Protein (U) [Mass/Vol] Negative NEGATIVE [facility] Work Phone: RBC (U) [#/Vol] SMALL(1+) Abnormal NEGATIVE [facility] Work Phone: Specific gravity (U) [Rel density] 1.021 1 See Below [facility] Work Phone: Comment on above: Reference Range: 1.0 05 - 1.035 URINALYSIS WITH CULTURE IF INDICATED Negative NEGATIVE [facility] Work Phone: URINALYSIS WITH CULTURE IF INDICATED <2.0 0.0 - 1.9 [facility] Work Phone: URINALYSIS WITH CULTURE IF INDICATED HAZY CLEAR [facility] Work Phone: Urinalysis, Microscopicon Urinalysis, Microscopic 1+ M [facility] Work Phone: Urinalysis, Microscopic 2+ M [facility] Work Phone: Urinalysis, Microscopic 6 {/HPF} M [facility] Work Phone: Urinalysis, Microscopic 5 {/HPF} 0-5 M [facility] Work Phone: [phone] Urinalysis, Microscopic None 0-5 M [facility] Work Phone: Urine Teston 11-23 HCG ( test) Ql (U) Negative Negative [facility] Work Phone: Mamm - Screening Mammogram w / Tomosynthesison 11-01-2021 MG Breast Screening Please click on the link to view the study images [facility] Work Phone: MG Breast Screening Normal [facility] [address] Work Phone: LMPon 10-30-2021 Last menstrual period start date 16Oct2021 [facility] [place] Work Phone: PHQ-2 VITALSon 10-29-2021 Adult depression screening assessment No [facility] Work Phone: Fall risk assessment a) No falls within the last year [facility] Work Phone: Tobacco use status CPHS b) No M [facility] Work Phone: PHQ-2 VITALS Adult [facility] Work Phone: [phone] Radiologyon 09-20-2021 XR Thoracic spine 3 Views Normal [facility]-Lela jc Work Phone: Blood Pressure Cuff Sizeon 0 09-03-2021 Adult depression screening assessment No [facility] Work Phone: Fall risk assessment a) No falls within the last year [facility] Work Phone: Tobacco use status CPHS b) No M [facility] Work Phone: Blood Pressure Cuff Size Adult [facility] Work Phone: No Panel Informationon 03-11 Normal [facility] Work Phone: [phone] Tobacco Screening.on 021 Fall risk assessment a) No falls within the last year [facility] Work Phone: Tobacco use status CPHS b) No M [facility] Work Phone: B12 & FOLATEon 12-28-2020 Cobalamin (Vitamin B12) [Mass/Vol] 555 pg/mL 180 - 914 PG/ML [employer] Folate [Mass/Vol] 19.9 ng/mL >5.9 NG/ML [facility] CBC, EDIF, PLATELETon 2020 ABSOLUTE BASOPHIL COUNT 0.0 10*3/uL 0.0 - 0.2 10*3/uL [facility] Basophils/100 WBC (Bld) 0.4 % 0.0 - 2.0 % [facility] Differential cell count method Nom (Bld) AUTO DIFF % [facility] Eosinophils (Bld) [#/Vol] 0.10 10*3/uL 0.0 - 0.7 10*3/uL [facility] Eosinophils/100 WBC (Bld) 1.6 % 0.0 - 11.0 % [facility] Erythrocyte distribution width (RBC) [Ratio] 13.2 % 11.5 - 14.5 % [facility] Hematocrit (Bld) [Volume fraction] 38.6 % 36.0 - 48.0 % [facility] Hemoglobin (Bld) [Mass/Vol] 12.7 g/dL [facility] Lymphocytes (Bld) [#/Vol] 2.50 10*3/uL 1.2 - 3.4 10*3/uL [facility] Lymphocytes/100 WBC (Bld) 27.6 % 20.0 - 55.0 % [facility] MCH (RBC) [Entitic mass] 28.4 pg 26.0 - 35.0 PG [facility] MCHC (RBC) [Mass/Vol] 33.1 g/dL [place] MCV (RBC) [Entitic vol] 85.9 fL A [facility] Monocytes (Bld) [#/Vol] 0.6 10*3/uL 0.0 - 0.7 10*3/uL [facility] Monocytes/100 WBC (Bld) 6.6 % 0.0 - 10.0 % [facility] Neutrophils (Bld) [#/Vol] 5.8 10*3/uL 1.4 - 6.5 10*3/uL [facility] Neutrophils/100 WBC (Bld) 63.8 % 37.0 - 75.0 % [facility] Platelet mean volume (Bld) [Entitic vol] 7.6 fL [facility] Platelets (Bld) [#/Vol] 348 10*3/uL 130. 0 - 400.0 10*3/uL [facility] RBC (Bld) [#/Vol] 4.49 10*6/uL 4.0 - 5.4 10*6/uL [facility] WBC (Bld) [#/Vol] 9.1 10*3/uL 3.6 - 11.0 10*3/uL [facility] COMPREHENSIVE METABOLIC PANE Best 12-28-2020 Albumin [Mass/Vol] 4.2 G/dl 3.5 - 5.0 G/dl [facility] Albumin/Globulin [Mass ratio] 1.1 {ratio} Low [facility] ALP [Catalytic activity/Vol] 66 U/L [facility] ALT [Catalytic activity/Vol] 25 U/L [facility] AST [Catalytic activity/Vol] 20 U/L [facility] Bilirubin [Mass/Vol] 0.3 mg/dL [facility] Calcium [Mass/Vol] 9.4 mg/dL [facility] Chloride [Moles/Vol] 105 mmol/L [facility] CO2 [Moles/Vol] 25 mmol/L [facility] Creatinine [Mass/Vol] 0.71 mg/dL [place] GFR COMMENT Average GFR for 20-2 9 years old = 116. [facility] Comment on above: Chronic Kidney disea se, GFR = <60. Kidney failure, GFR = <15. The GFR estimate is not adjusted for extreme body surface area or acute process, nor has it been validated for women or ethnic groups other than and . GFR/1.73 sq M.predicted among blacks MDRD (S/P/Bld) [Vol rate/Area] mL/min/{1.73_m2} ml/min/1.73s q.m [facility] GFR/1.73 sq M.predicted among non-blacks MDRD (S/P/Bld) [Vol rate/Area] mL/min/{1.73_m2} ml/min/1.73s q.m [facility] Glucose post fast [Mass/Vol] 96 mg/dL [facility] Comment on above: NORMAL <100 mg/dL PREDIABETES 101-126 mg/dL DIABETES 126 mg/dL or higher Potassium [Moles/Vol] 4.0 mmol/L [place] Protein [Mass/Vol] 7.9 g/dL [facility] Sodium [Moles/Vol] 138 mmol/L [facility] Urea nitrogen [Mass/Vol] 16 mg/dL [facility] ECGOrdered By: Johnny valero on 12-28-2020 [facility] Work Phone: HEMOGLOBIN A1Con 12-28-2020 Glucose [Mass/Vol] 131 mg/dL [facility] HbA1c (Bld) [Mass fraction] 6.2 % High <6 [facility] Comment on above: NORMAL <5.7% PREDIABETES 5.7-6.4% DIABETES 6.5% OR HIGHER Interpretation and review of laboratory results Abnormal [facility] IRON/IRON BINDING/TRANSFERRI Non 12-28-2020 Iron [Mass/Vol] 40 ug/dL [facility] Iron binding capacity [Mass/Vol] 357 [facility] Iron saturation [Mass fraction] 11 % [facility] LIPID PANEL W CALCULATED LDL on 12-28-2020 Cholesterol [Mass/Vol] 177 mg/dL [facility] Cholesterol in HDL [Mass/Vol] 49 mg/dL [facility] Cholesterol in LDL [Mass/Vol] 89 mg/dL [facility] Cholesterol in VLDL [Mass/Vol] 39 mg/dL High [facility] Cholesterol.total/Desirae sterol in HDL [Mass ratio] 3.61 {ratio} RATIO [facility] Comment on above: RISK TOTAL/HDL RATIO MEN WOMEN 1/2 AVERAGE 3.43 3.27 AVERAGE 4.97 4.44 2X AVERAGE 9.55 7.05 3X AVERAGE 23.99 11.04 Triglyceride [Mass/Vol] 194 mg/dL High <150 MG/DL A [facility] No Panel Informationon 12-28 [facility] Interpretation and review of laboratory results Abnormal [facility] TSHon 12-28-2020 TSH Qn 1.050 m[IU]/L [facility] VITAMIN D (25-HYDROXY,TOTAL) on 12-28-2020 25-hydroxyvitamin D [Mass/Vol] 31.4 >30 NG/ML [facility] Comment on above: DEFICIENT <20 NG/ML INSUFFICIENT [...] abdomen are unremarkable. No acute osseous abnormalities. [facility] Nato Chandler MD - 12/28/2020 EXAM: XR [...] IMPRESSION: Normal radiographic appearance of the chest. [facility] Radiology Study observation (narrative) [facility] XR CHEST PA AND LATERALOrder ed By: Nato Chandler on 12-28-2020 [facility] Work Phone: No Panel Informationon 10-30 [facility] Work Phone: [email or web address] [facility] Work Phone: Coronavirus 2019 RNA by PCR, Screening Asymptomticon 10-27-2020 Coronavirus 2019 RNA by PCR, Screening Asymptomtic Not detected Normal See Below [facility] Work Phone: Comment on above: SOURCE: [...] this test method. Fact sheet for providers: https://www.fda.gov/media/588805/downloadFact sheet for patients: https://www.fda.gov/media/676380/downloadThis test has received FDA Emergency Use Authorization [EUA] and has been verified by [facility] ([facility]). This test is only authorized for the duration of time that circumstances exist to justify the authorization of the emergency use of in vitro diagnostic tests for the detection of SARS-CoV-2 virus and/or diagnosis of COVID-19 infection under section 564(b)(1) of the Act, 21 U.S.C. 360bbb-3(b)(1), unless the authorization is terminated or revoked sooner. [facility] is certified under CLIA-88 as qualified to perform high complexity testing. Testing is performed in the [facility] laboratories located at [address] [place] [address]. Hemoglobin A1Con 01-07-2020 HbA1c (Bld) [Mass fraction] 111 {MG/DL} [employer] Work Phone: HbA1c (Bld) [Mass fraction] 5.5 % [employer] Work Phone: Comment on above: Diagnosis of Diabete s-Adults Non-Diabetic: < or = 5.6% Increased risk for developing diabetes: 5.7-6.4% Diagnostic of diabetes: > or = 6.5%. Monitoring of Diabetes Age (y) Therapeutic Goal (%) Adults: >18 <7.0 Pediatrics: 13-18 <7.5 7-12 <8.0 0- 6 7.5-8.5 [place] [employer]. Diabetes Care 33(S1), Jun 2009. Hepatitis C Antibody Teston 01-07-2020 Hepatitis C Antibody Test NONREACTIVE See Below [employer] Work Phone: Comment on above: SOURCE: Reference [...] laboratory for further information. SOURCE: Reference Ra jaimee: NONREACTIVE HIV Ag/Ab screen is performed using the Siemens [employer] HIV Ag/Ab Combo assay which detects the presence of HIV p24 antigen as well as antibodies to HIV-1 (Group M and O) and HIV-2. Rubella IgG Antibodyon 01-06 Rubella virus IgG IA Ql [facility] [employer] Work Phone: Comment on above: SOURCE: INTERPRETATI [...] alteredresults in serological assays. SYPHILIS SCREENING WITH REFL EXon 01-07-2020 T. pallidum IgG+IgM IA Ql (S) NONREACTIVE See Below [employer] Work Phone: Comment on above: SOURCE: Reference Ra nge: NONREACTIVENo significant level of Treponema pallidum antibody detected. Repeat testing in 2 to 4 weeks may be considered if early infection or incubating syphilis infection is suspected. Total Protein, Urine Spoton 01-07-2020 Creatinine (U) [Mass/Vol] 87.0 mg/dL See Below [employer] Work Phone: Comment on above: Reference Range: 20. 0 - 320.0 Protein (U) [Mass/Vol] 8 mg/dL 5 - 24 [facility] Work [facility]: Protein/Creatinine (U) [Ratio] 0.09 {mg/mg_Creat} See Below [employer] Work Phone: Comment on above: Reference Range: 0.0 0 - 0.17 Imm/Pathon 12-05-2019 Cytology report Cyto stain.thin prep Doc (Cvx/Vag) Date of Procedure: 12/05/2019 Pathologist: [facility], CytologyDate Reported: 12/26/2019Date Received: 12/06/2019Submitting Physician: ROSALBA THOMAS DO FINAL CYTOLOGICAL INTERPRETATIONA. THINPREP PAP CERVICAL Reflex - [facility] only: Specimen adequacy:SATISFACTORY FOR EVALUATION.Quality Indicator: Endocervical/transformat ion zone component is present. General Categorization:NEGATIVE FOR INTRAEPITHELIAL LESION OR MALIGNANCY. Ancillary Testing:Specimen does not meet the requisition-stated criteria for HPV testing. See Paptest interpretation above.Show Design Supervisor slide review performed at [facility], [address] [place], [place] [address]Electronically Signed Out By [facility], Cytology//LSM By the signature on this [...] for ASC-US only - Include HPV Genotype [id number] [id number] Source of SpecimenA: THINPREP PAP CERVICAL Reflex - Ascus only [employer] Work Phone: Cult, Urineon 11-04-2019 Bacteria identified Cx Nom (U) PATIENT: AYE WEIR LOCATION: [facility]#: [id number] : 89 AGE: SEX: F ORDERED BY: JAYSHREE COLIN: URINE COLLECTED: 11/04/19 18:05ANTIBIOTICS AT [facility].: RECEIVED : 11/05/19 12:29SITE: Clean Catch/Voided R E S U L T S URINE CULTURE,BACTERIAL FINAL 11/06/19 07:45 NO SIGNIFICANT GROWTH. [employer] Work Phone: Comment on above: Ordering Provider: Khushbu COLIN [id number] Daily Progress Note - OB-Ant enatal Testingon 04-20-2019 Daily Progress Note - OB- Testing Current Stage: Stage: Testing OB Dating: EDC/EGA: Final [id number] EGA36.6 Subjective Data: Antepartum: Vaginal Bleeding: No Contractions/Abdominal Pain: No Discharge/Loss of Fluid: No Movement: Good Antepartum: Presents for NST due to obesity Objective Information: Objective Information: T PRBPSpO2 [id number]/8098% Date/Time04/20 14: 14: 14: 14: 14:52 Range(36.9C [...] Last Updated: 20-Apr-2019 15:14 by Jacquelyn Walker) [facility] Follow Upon US Follow Up Exam Date/Time: 02/25/2019 12:30 EDT Reason for Exam: CHECKING GROWTH; Size - measuring standard growth/amniotic fluid volume Report STUDY: US Follow Up; 02/25/2019 12:30 pm INDICATION: Size - measuring standard growth/amniotic fluid volume. COMPARISON: None. ACCESSION NUMBER(S): [id number] ORDERING CLINICIAN: Rosalba Thomas TECHNIQUE: Multiple images were obtained. Transabdominal [...] by: Johny Mirza MD Technologist: AMS Normal [facility] Auto Diffon 02-14-2019 Basophils (Bld) [#/Vol] 0.1 E3/mcL Normal 0.0-0.2 [facility] Comment on above: Order Comment: Order Added by Discern Expert. Performed By: #### 2 [id number] #### [facility] [address] [place] [address] Basophils/100 WBC (Bld) 0.4 % Normal 0.0-2.0 [facility] Comment on above: Order Comment: Order Added by Discern Expert. Performed By: #### 2 [id number] #### [facility] [employer] [address] [place] [address] Eos Absolute 0.1 E3/mcL Normal 0.0-0.7 [facility] Comment on above: Order Comment: Order Added by Discern Expert. Performed By: #### 2 [id number] #### [facility] [employer] [address] [place] [address] Eosinophils/100 WBC (Bld) 0.6 % Normal 0.0-11.0 [facility] Comment on above: Order Comment: Order Added by Discern Expert. Performed By: #### 2 [id number] #### [facility] [employer] [address] [place] [address] Lymphocytes (Bld) [#/Vol] 1.8 E3/mcL Normal 1.2-3.4 [facility] Comment on above: Order Comment: Order Added by Discern Expert. Performed By: #### 2 [id number] #### [facility] [employer] [address] [place] [address] Lymphocytes/100 WBC (Bld) 15.3 % Low 20.0-55.0 [facility] Comment on above: Order Comment: Order Added by Discern Expert. Performed By: #### 2 [id number] #### [facility] [employer] [address] [place] [address] [place] Absolute 0.6 E3/mcL Normal 0.0-0.7 [facility] Comment on above: Order Comment: Order Added by Discern Expert. Performed By: #### 2 [id number] #### [facility] [employer] [address] [place] [address] Monocytes/100 WBC (Bld) 5.0 % Normal 0.0-10.0 [facility] Comment on above: Order Comment: Order Added by Discern Expert. Performed By: #### 2 [id number] #### [facility] [address] [place] [address] Neutro Absolute 9.0 E3/mcL High 1.4-6.5 [facility] Comment on above: Order Comment: Order Added by Discern Expert. Performed By: #### 2 [id number] #### [facility] [address] [place] [address] Neutro Auto 78.7 % High 37.0-75.0 [facility] Comment on above: Order Comment: Order Added by Discern Expert. Performed By: #### 2 [id number] #### [facility] [address] [place] [address] CBC w/ Auto Diffon Erythrocyte distribution width (RBC) [Ratio] 14.2 % Normal 11.5-14.5 [facility] Comment on above: Performed By: #### 2 072881 #### [facility] [address] [place] [address] Hematocrit (Bld) [Volume fraction] 34.7 % Low 36.0-48.0 [facility] Comment on above: Performed By: #### 2 648545 #### [facility] [address] [place] [address] Hemoglobin (Bld) [Mass/Vol] 11.4 g/dL Low 12.0-16.0 [facility] Comment on above: Performed By: #### 2 063256 #### [facility]ENT [employer] [facility] [place] [address] MCH (RBC) [Entitic mass] 29.4 pg Normal 27.0-31.0 [facility] Comment on above: Performed By: #### 2 178202 #### [facility] [address] [place] [address] MCHC (RBC) [Mass/Vol] 32.8 g/dL Low 33.0-37.0 [facility] Comment on above: Performed By: #### 2 704628 #### [facility] [employer] [address] [place] [address] MCV (RBC) [Entitic vol] 89.6 fL Normal 78.0-100.0 [facility] Comment on above: Performed By: #### 2 799420 #### [facility] [employer] [address] [place] [address] Platelet mean volume (Bld) [Entitic vol] 8.5 fL Normal 7.4-11.0 [facility] Comment on above: Performed By: #### 2 637407 #### [facility] [address] [place] [address] Platelets (Bld) [#/Vol] 284 E3/mcL Normal 130-400 [facility] Comment on above: Performed By: #### 2 514924 #### [facility] [employer] [address] [place] [address] RBC (Bld) [#/Vol] 3.87 E6/mcL Low 3.90-5.40 [facility] Comment on above: Performed By: #### 2 945641 #### [facility] [employer] [address] [place] [address] WBC (Bld) [#/Vol] 11.5 E3/mcL High 3.6-11.0 [facility] Comment on above: Performed By: #### 2 689608 #### [facility] [address] [place] [address] Gest Scr Glu 1 Hron 02-15-20 19 Glucose [Mass/Vol] 116 mg/dL Normal 70-140 [facility] Comment on above: Performed By: #### 2 442811 #### [facility] [address] [place] [address] US After 1st Trime steron 12-22-2018 US After 1st Trimester Exam Date/Time: 12/21/2018 14:34 EDT Reason for Exam: DATES AND ANATOMY;Standard Anatomy Report STUDY: US After 1st Trimester 12/21/2018 2:34 pm INDICATION: Standard Anatomy. COMPARISON: 09/20/2018 ACCESSION NUMBER(S): [id number] ORDERING CLINICIAN: Rosalba Thomas TECHNIQUE: Routine ultrasound [...] am Signed by: Mat Salvador MD Technologist: JUAN [facility] AFP Tetra Profileon 11-27-19 19 AFP TP AFP Mom Value 1.81 [facility] Comment on above: Performed By: #### 2 998244 #### [facility] [address] [place] [address] AFP TP AFP Soco EIA 39.2 ng/mL [facility] Comment on above: Performed By: #### 2 807042 #### [facility] [employer] [address] [place] [address] AFP TP Comments: Comment [facility] Comment on above: Result Comment: Kirsty Jorgensen, Ph.D., [facility] Principal Genetics Patient Services Representative References: Available Upon Request. Multiples Of Median Cutoffs Abbreviation Definitions For AFP Elevations IDD- Insulin Dep Diabetes Wilson 2.5 Black 2.8 OSBR- Open Spina Bifida IDD 2.0 Twins 4.5 Risk DSR Cutoff 1:270 DSR- Down Syndrome Risk T18 Cutoff 1:100 T18- Trisomy 18 Down Syndrome and Trisomy 18 screening are considered Investigational For further inquiries contact [facility] at [phone]. Performed At: [facility] [address], [place] [id number] Gladys Calles MD Ph:[phone] Performed By: #### 2 583217 #### [facility] [address] [place] [address] AFP TP BENJI Mom Value 1.50 [facility] Comment on above: Performed By: #### 2 070117 #### [facility] [employer] [address] [place] [address] AFP TP BENJI Value EIA 191.13 pg/mL [facility] Comment on above: Performed By: #### 2 911169 #### [facility] [employer] [address] [place] [address] AFP TP DSR 2nd Times 1IN [address] [facility] Comment on above: Performed By: #### 2 522952 #### [facility] [address] [place] [address] AFP TP DSR(by Age) 1IN 1097 [facility] Comment on above: Performed By: #### 2 157819 #### [facility] [employer] [address] [place] [address] AFP TP GA Base DOMONIQUE [facility] Comment on above: Result Comment: 05/01 Performed By: #### 2 312993 #### [facility] [employer] [address] [place] [address] AFP TP Gest Age 15.7 week(s) [facility] Comment on above: Performed By: #### 2 677608 #### [facility] [employer] [address] [place] [address] AFP TP hCG Mom 1.93 [facility] Comment on above: Performed By: #### 2 108334 #### [facility] [employer] [address] [place] [address] AFP TP Insulin Dep Diabetes No [facility] Comment on above: Performed By: #### 2 934688 #### [facility] [address] [place] [address] AFP TP Interp Comment [facility] Comment on above: Result [...] identifies 60% of Trisomy 18 pregnancies. The [employer] recommends amniocentesis be offered to women age 35 and older. Recalculations are not recommended when gestational dating by LMP and ultrasound are within 10 days. Performed By: #### 2 713366 #### [facility] [address] [place] [address] AFP TP Mat Age DOMONIQUE 23.2 [facility] Comment on above: Performed By: #### 2 659135 #### [facility] [employer] [address] [place] [address] AFP TP Mult Gest No [facility] Comment on above: Performed By: #### 2 713531 #### [facility] [employer] [address] [place] [address] AFP TP OSBR Risk 1 [place] 1248 [facility] Comment on above: Performed By: #### 2 715463 #### [facility] [employer] [address] [place] [address] AFP TP Race [facility] Comment on above: Performed By: #### 2 009888 #### [facility] [employer] [address] [place] [address] AFP TP T18 (By Age) Not increased [facility] Comment on above: Performed By: #### 2 481926 #### [facility] [employer] [address] [place] [address] AFP TP T18 Risk 1:4274 [facility] Comment on above: Performed By: #### 2 307382 #### [facility] [employer] [address] [place] [address] AFP TP Test Results: Negative [facility] Comment on above: Performed By: #### 2 362773 #### [facility] [employer] [address] [place] [address] AFP TP uE3 Mom 0.96 [facility] Comment on above: Performed By: #### 2 927894 #### [facility] [address] [place] [address] AFP TP uE3 Value 0.64 ng/mL [facility] Comment on above: Performed By: #### 2 508090 #### [facility] [place] [id number] [place] [address] m[IU]/mL Normal [facility] Comment on above: Performed By: #### 2 546311 #### [facility] [place] [address] Gest Scr Glu 1 Hron 11-24-19 19 Glucose [Mass/Vol] 131 mg/dL Normal 70-140 [facility] Comment on above: Performed By: #### 2 949335 #### [facility]ENT [place] [id number] Lab Miscellaneouson 11-18-19 19 Status Sent Out [facility] Comment on above: Performed By: #### 2 803831 #### [facility] [place] [id number] Hep Bs Agon 10-27-2018 Hep Bs Ag Negative Normal Negative [facility] Comment on above: Result Comment: Perf ormed At: [facility] [address] [id number] Thuy Juan PhD Ph:[phone] Performed By: #### 2 567546 #### [facility] [place] [id number] RPRon 10-27-2018 Reagin Ab RPR Ql (S) Non-Reactive Normal Non-Reactive [facility] Comment on above: Performed By: #### 2 478217 #### [facility] [place] [address] Rubella IgG Lvlon 10-27-2018 Rubella IgG Lvl 15.2 (POS) Normal [facility] Comment on above: Result Comment: <10I U/ml NON REACTIVE: NOT IMMUNE 10-15 IU/ml RUBELLA SPECIFIC AB PRESENT, EVALUATE FURTHER TO DETERMINE IMMUNE STATUS >15 IU/ml REACTIVE, IMMUNE Performed By: #### 2 334810 #### [facility] [place] [id number] Antibody Screen Cap...on Screen Interp... Negative Normal [facility] Comment on above: Performed By: #### 2 856548 #### [facility] [address] [place] [address] Chlamydia GC by PCRon 2018 Chlamydia by PCR. Not Detected Normal Not Detected [facility] Comment on above: Result Comment: Xper t CT/NG Assay performance has not been evaluated in patients less than 14 years of age. Performed By: #### 2 429762 #### [facility] [address] [place] [id number] Gonorrhoeae by PCR Not Detected Normal Not Detected [facility] Comment on above: Result Comment: Xper t CT/NG Assay performance has not been evaluated in patients less than 14 years of age. Performed By: #### 2 857799 #### [facility] [employer] [address] [place] [address] HIV-1/2 Ag/Abon 10-26-2018 HIV Combo Internal Control Line Reactive Normal Reactive [facility] Comment on above: Performed By: #### 2 054840 #### [facility] [address] [place] [address] HIV-1 & HIV-2 Antibodies Non-Reactive Normal Non-Reactive [facility] Comment on above: Performed By: #### 2 395707 #### [facility] [employer] [address] [place] [address] HIV-1 p-24 Antigen Non-Reactive Normal Non-Reactive [facility] Comment on above: Performed By: #### 2 941864 #### [facility] [employer] [address] [place] [address] HIV-1/2 Ag/Ab Interp Negative Normal Negative [facility] Comment on above: Performed By: #### 2 737887 #### [facility] [employer] [address] [place] [id number] Lab Miscellaneouson 10-27-19 19 Test Name counsyl Normal [facility] Comment on above: Performed By: #### 2 410799 #### [facility] [employer] [address] [place] [id number] C Urineon 09-22-2018 C Urine Final Report: Modera te Normal skin daphne isolated Normal [facility] Comment on above: Performed By: #### 2 975734 #### [facility] [employer] [address] [place] [address] ABO/Rh Echoon 09-20-2018 ABO/Rh E Interp... Positive Normal [facility] Comment on above: Performed By: #### 2 358440 #### [facility] [employer] [address] [place] [address] Auto Diffon 09-20-2018 Basophils (Bld) [#/Vol] 0.1 E3/mcL Normal 0.0-0.2 [facility] Comment on above: Order Comment: Order Added by Discern Expert. Performed By: #### 2 894590 #### [facility] [employer] [address] [place] [address] Basophils/100 WBC (Bld) 1.0 % Normal 0.0-2.0 [facility] Comment on above: Order Comment: Order Added by Discern Expert. Performed By: #### 2 861944 #### [facility] [employer] [address] [place] [address] Eos Absolute 0.1 E3/mcL Normal 0.0-0.7 [facility] Comment on above: Order Comment: Order Added by Discern Expert. Performed By: #### 2 707871 #### [facility] [employer] [address] [place] [address] Eosinophils/100 WBC (Bld) 0.9 % Normal 0.0-11.0 [facility] Comment on above: Order Comment: Order Added by Discern Expert. Performed By: #### 2 169865 #### [facility] [employer] [address] [place] [address] Lymphocytes (Bld) [#/Vol] 2.5 E3/mcL Normal 1.2-3.4 [facility] Comment on above: Order Comment: Order Added by Discern Expert. Performed By: #### 2 663557 #### [facility] [employer] [address] [place] [address] Lymphocytes/100 WBC (Bld) 24.0 % Normal 20.0-55.0 [facility] Comment on above: Order Comment: Order Added by Discern Expert. Performed By: #### 2 464417 #### [facility] [address] [place] [address] Perkins Absolute 0.8 E3/mcL High 0.0-0.7 [facility] Comment on above: Order Comment: Order Added by Discern Expert. Performed By: #### 2 296664 #### [facility] [employer] [address] [place] [address] Monocytes/100 WBC (Bld) 8.0 % Normal 0.0-10.0 [facility] Comment on above: Order Comment: Order Added by Discern Expert. Performed By: #### 2 555921 #### [facility] [address] [place] [id number] Neutro Absolute 6.9 E3/mcL High 1.4-6.5 [facility] Comment on above: Order Comment: Order Added by Discern Expert. Performed By: #### 2 433339 #### [facility] [employer] [address] [place] [address] Neutro Auto 66.1 % Normal 37.0-75.0 [facility] Comment on above: Order Comment: Order Added by Discern Expert. Performed By: #### 2 410380 #### [facility] [employer] [address] [place] [id number] BMPon 09-20-2018 Anion gap [Moles/Vol] 12 mmol/L Normal 10-20 [facility] Comment on above: Performed By: #### 2 181433 #### [facility] [employer] [address] [place] [address] Calcium [Mass/Vol] 9.3 mg/dL Normal 8.6-10.3 [facility] Comment on above: Performed By: #### 2 178403 #### [facility] [employer] [address] [place] [address] Chloride [Moles/Vol] 105 mmol/L Normal 98-[address] [facility] Comment on above: Performed By: #### 2 728014 #### [facility] [employer] [address] [place] [phone] CO2 [Moles/Vol] 23.0 mmol/L Normal 21.0-32.0 [facility] Comment on above: Performed By: #### 2 695425 #### [facility] [address] [place] [address] Creatinine [Mass/Vol] 0.7 mg/dL Normal 0.5-1.1 [facility] Comment on above: Performed By: #### 2 904332 #### [facility] [employer] [address] [place] [address] Glucose [Mass/Vol] 99 mg/dL Normal 70-99 [facility] Comment on above: Performed By: #### 2 983523 #### [facility] [address] [place] [address] Potassium [Moles/Vol] 4.0 mmol/L Normal 3.5-5.3 [facility] Comment on above: Performed By: #### 2 006126 #### [facility] [address] [place] [address] Sodium [Moles/Vol] 136 mmol/L Normal 136-145 [facility] Comment on above: Performed By: #### 2 304773 #### [facility] [employer] [address] [place] [address] Urea nitrogen [Mass/Vol] 13 mg/dL Normal 6-23 [facility] Comment on above: Performed By: #### 2 264263 #### [facility] [employer] [address] [place] [address] Urea nitrogen/Creatinine [Mass ratio] 18.6 ratio Normal 5.4-30.0 [facility] Comment on above: Performed By: #### 2 558197 #### [facility] [employer] [address] [place] [address] BhCG Quanton 09-20-2018 [place] [address].0 mIU/mL High 0.0-2.9 [facility] Comment on above: Result Comment: FEMA LE (NON-) & MALE <3 BORDERLINE 3 - 25 SUGGEST REPEAT TESTING FEMALE () 1 D - 1 WK 25 - 50 1 - 2 WK 50 - 500 2 - 3 WK 100 - 5000 3 - 4 WK 500 - 64004 4 - 5 WK 1000 - 46055 5 - 6 WK [address] - 399150 6 - 8 WK [address] - 141618 2 - 3 [place] [address] - 437023 Performed By: #### 2 198961 #### [facility] [employer] [facility] [place] [address] CBC w/ Auto Diffon Erythrocyte distribution width (RBC) [Ratio] 14.3 % Normal 11.5-14.5 [facility] Comment on above: Performed By: #### 2 753436 #### BRENT [employer] [address] [place] [address] Hematocrit (Bld) [Volume fraction] 38.7 % Normal 36.0-48.0 [facility] Comment on above: Performed By: #### 2 482684 #### BRENT [address] [address] Hemoglobin (Bld) [Mass/Vol] 12.7 g/dL Normal 12.0-16.0 [facility] Comment on above: Performed By: #### 2 309336 #### [facility] [employer] [address] [place] [address] MCH (RBC) [Entitic mass] 28.2 pg Normal 27.0-31.0 [facility] Comment on above: Performed By: #### 2 963491 #### BRENT [address] [address] MCHC (RBC) [Mass/Vol] 32.8 g/dL Low 33.0-37.0 [facility] Comment on above: Performed By: #### 2 202432 #### [facility] [employer] [facility] [place] [address] MCV (RBC) [Entitic vol] 85.8 fL Normal 78.0-100.0 [facility] Comment on above: Performed By: #### 2 332106 #### [facility] [employer] [facility] [place] [address] Platelet mean volume (Bld) [Entitic vol] 7.9 fL Normal 7.4-11.0 [facility] Comment on above: Performed By: #### 2 469685 #### [facility] [employer] [facility] [place] [address] Platelets (Bld) [#/Vol] 340 E3/mcL Normal 130-400 [facility] Comment on above: Performed By: #### 2 638371 #### [facility] [address] [place] [address] RBC (Bld) [#/Vol] 4.52 E6/mcL Normal 3.90-5.40 [facility] Comment on above: Performed By: #### 2 250849 #### [facility] [employer] [address] [place] [address] WBC (Bld) [#/Vol] 10.5 E3/mcL Normal 3.6-11.0 [facility] Comment on above: Performed By: #### 2 696012 #### [facility] [address] [place] [address] UA Completeon 09-20-2018 Color (U) Yellow Normal Yellow [facility] Comment on above: Performed By: #### 2 329843 #### BRENT CindyHemo [address] [place] [address] Glucose (U) [Mass/Vol] Negative Normal Negative [facility] Comment on above: Performed By: #### 2 547247 #### BRENT CindyHemo [address] [place] [address] Ketones Ql (U) Negative Normal Negative [facility] Comment on above: Performed By: #### 2 464834 #### BRENT [facility] [address] [place] [address] RBC (U) [#/Vol] 0-3 Normal 0-3 [facility] Comment on above: Performed By: #### 2 815385 #### [facility] [address] [place] [address] UA Blood Negative Normal Negative [facility] Comment on above: Performed By: #### 2 073961 #### BRENT CindyHemo [address] [place] [address] UA Ascorbic Acid 40 mg/dL High <=19 [facility] Comment on above: Performed By: #### 2 856929 #### BRENTDoreen White[facility] [address] [place] [address] UA Bacteria 1+ /HPF Abnormal None [facility] Comment on above: Performed By: #### 2 209684 #### BRENT [facility] [address] [place] [address] UA Clarity SltCloudy Abnormal Clear [facility] Comment on above: Performed By: #### 2 087824 #### BR[facility] [employer] [address] [place] [address] UA Leuk Est 3+ Abnormal Negative [facility] Comment on above: Performed By: #### 2 839110 #### BR[facility] [employer] [address] [place] [id number] UA Mucous Occasional Abnormal Trace [facility] Comment on above: Performed By: #### 2 123006 #### BR[facility] [address] [place] [address] UA Nitrite Negative Normal Negative [facility] Comment on above: Performed By: #### 2 432851 #### BRENT [facility] [address] [place] [address] UA pH 6.0 Normal 4.6-8.0 [facility] Comment on above: Performed By: #### 2 728626 #### [facility] [address] [place] [address] UA Protein Negative Normal Negative [facility] Comment on above: Performed By: #### 2 246970 #### BR[facility] [address] [place] [address] UA Spec Grav 1.023 Normal 1.003-1.030 [facility] Comment on above: Performed By: #### 2 692669 #### BRENT [facility] [address] [place] [address] UA Squam Epithelial 10-20 Abnormal 0-5 [facility] Comment on above: Performed By: #### 2 748775 #### BR[facility] [address] [place] [address] UA Urobilinogen 2.0 mg/dL Abnormal [facility] Comment on above: Result Comment: Due to a manufacturing issue, low positive urobilinogen results may be fasely positive. Correlate with urine bilirubin and additional clinical/laboratory findings to assess the risk of hemolytic anemia or liver disease. If clinically indicated, repeat testing with an alternate method is available by contacting the laboratory within 24 hours. Performed By: #### 2 737484 #### [facility] [address] [place] [address] UA WBC 10-20 Abnormal 0-5 [facility] Comment on above: Performed By: #### 2 434607 #### BRENT [facility] [address] [place] [address] Urobilinogen Qn (U) Negative Normal Negative [facility] Comment on above: Performed By: #### 2 252674 #### BR[facility] [address] [place] [address] US Transvaginalon 09-20-2018 US Transvaginal Exam Date/Time: 09/20/2018 16:36 EDT Reason for Exam: viability Report STUDY: US Transvaginal; 09/20/2018 4:36 pm INDICATION: viability. Clinical age is 6 weeks, 6 days, with clinical DOMONIQUE of 05/10/2019. COMPARISON: Comparison with prior ultrasound pelvis from 10/17/2016. ACCESSION NUMBER(S): [id number] ORDERING CLINICIAN: Brett Colin TECHNIQUE: Transabdominal and [...] Signed by: Ozzie Angel MD Technologist: JARETH Butler [facility] eGFRon 09-20-2018 GFR/1.73 sq M predicted among non-blacks MDRD (S/P/Bld) [Vol rate/Area] mL/min/{1.73_m2} Normal [facility] Comment on above: Order Comment: Order added by Discern Expert. Performed By: #### 2 865801 #### BRENT [facility] [address] [place] [id number] BhCG Quanton 09-04-2018 Beta hCG Qnt 131.0 mIU/mL High 0.0-2.9 [facility] Comment on above: Result Comment: FEMA LE (NON-) & MALE <3 BORDERLINE 3 - 5 SUGGEST REPEAT TESTING FEMALE () 1 D - 1 WK 5 - 50 1 - 2 WK 50 - 500 2 - 3 WK 100 - 5000 3 - 4 WK 500 - 50397 4 - 5 WK 1000 - 13402 5 - 6 WK [address] - 611775 6 - 8 WK [address] - 289443 2 - 3 [place] [address] - 367020 Performed By: #### 2 752534 #### BRENT Rem[facility] [address] [place] [address] BhCG Quanton 09-02-2018 Beta hCG Qnt 46.0 mIU/mL High 0.0-2.9 [facility] Comment on above: Result Comment: FEMA LE (NON-) & MALE <3 BORDERLINE 3 - 5 SUGGEST REPEAT TESTING FEMALE () 1 D - 1 WK 5 - 50 1 - 2 WK 50 - 500 2 - 3 WK 100 - 5000 3 - 4 WK 500 - 38083 4 - 5 WK 1000 - 46310 5 - 6 WK [address] - 334492 6 - 8 WK 10993 - 652969 2 - 3 [place] [address] - 552306 Performed By: #### 2 766093 #### [facility] [address] [place] [address] Lab Miscellaneouson 07-23-19 19 Status Sent Out [facility] Comment on above: Performed By: #### 1 [id number] #### BRENT [facility] [employer]s [employer] [address] [place] [address] Chlamydia GC by PCRon 2018 Chlamydia by PCR. Not Detected Normal Not Detected [facility] Comment on above: Result Comment: Xper t CT/NG Assay performance has not been evaluated in patients less than 14 years of age. Performed By: #### 3 [id number] #### BRENT Misc Micro SubSection , Gonorrhoeae by PCR Not Detected Normal Not Detected [facility] Comment on above: Result Comment: Xper t CT/NG Assay performance has not been evaluated in patients less than 14 years of age. Performed By: #### 3 [id number] #### BRENT Misc Micro SubSection , Lab Miscellaneouson 07-22-19 19 Test Name myriad Normal [facility] Comment on above: Performed By: #### 1 [id number] #### BRENT [employer] [address] [place] [address] ABO/Rh Echoon 03-01-2018 ABO/Rh E Interp... Positive Normal [facility] Comment on above: Performed By: #### 8 [id number] #### BRENT [facility]section [address] [place] [address] Antibody Screen Cap...on Screen Interp... Negative Normal [facility] Comment on above: Performed By: #### 8 [id number] #### BRENT [facility] [address] [place] [address] Auto Diffon 03-01-2018 Basophils (Bld) [#/Vol] 0.1 E3/mcL Normal 0.0-0.2 [facility] Comment on above: Order Comment: Order Added by Discern Expert. Performed By: #### 2 819316 #### BRENT RemHemo [address] [place], [place] [id number] Basophils/100 WBC (Bld) 0.8 % Normal 0.0-2.0 [facility] Comment on above: Order Comment: Order Added by Discern Expert. Performed By: #### 2 009681 #### BRENT RemHemo [address] [place], [place] [id number] Eos Absolute 0.0 E3/mcL Normal 0.0-0.7 [facility] Comment on above: Order Comment: Order Added by Discern Expert. Performed By: #### 2 175908 #### BRENT RemHemo [address] [place] [address] [place] [address] Eosinophils/100 WBC (Bld) 0.4 % Normal 0.0-11.0 [facility] Comment on above: Order Comment: Order Added by Discern Expert. Performed By: #### 2 800848 #### BRENT White[facility]emo [address] [place] [address] Lymphocytes (Bld) [#/Vol] 2.2 E3/mcL Normal 1.2-3.4 [facility] Comment on above: Order Comment: Order Added by Discern Expert. Performed By: #### 2 [id number] #### BRENT WhiteHemo [address] [place] [address] Lymphocytes/100 WBC (Bld) 18.8 % Low 20.0-55.0 [facility] Comment on above: Order Comment: Order Added by Discern Expert. Performed By: #### 2 [id number] #### BRENT WhiteHemo [address] [place] [address] Perkins Absolute 0.7 E3/mcL Normal 0.0-0.7 [facility] Comment on above: Order Comment: Order Added by Discern Expert. Performed By: #### 2 [id number] #### BRENT WhiteHemo [address] [place] [address] Monocytes/100 WBC (Bld) 5.9 % Normal 0.0-10.0 [facility] Comment on above: Order Comment: Order Added by Discern Expert. Performed By: #### 2 [id number] #### BRENT RemHemo [address] [place] [address] Neutro Absolute 8.5 E3/mcL High 1.4-6.5 [facility] Comment on above: Order Comment: Order Added by Discern Expert. Performed By: #### 2 [id number] #### BRENT RemHemo [address] [place] [address] Neutro Auto 74.1 % Normal 37.0-75.0 [facility] Comment on above: Order Comment: Order Added by Discern Expert. Performed By: #### 2 [id number] #### BRENT WhiteHemo [address] [place] [address] BMPon 03-01-2018 Anion gap [Moles/Vol] 16 mmol/L Normal 10-20 [facility] Comment on above: Performed By: #### 2 [id number] #### BRENT [employer] [address] [place] [address] Calcium [Mass/Vol] 9.2 mg/dL Normal 8.4-10.2 [facility] Comment on above: Performed By: #### 2 [id number] #### BRENT [employer] [address] [place] [address] Chloride [Moles/Vol] 102 mmol/L Normal 101-[address] [facility] Comment on above: Performed By: #### 2 [id number] #### BRENT [employer] [address] [place] [address] CO2 [Moles/Vol] 24.3 mmol/L Normal 21.0-32.0 [facility] Comment on above: Performed By: #### 2 [id number] #### BRENT [employer] [address] [place] [address] Creatinine [Mass/Vol] 0.7 mg/dL Normal 0.5-1.0 [facility] Comment on above: Performed By: #### 2 [id number] #### BRENT [employer] [address] [place] [address] Glucose [Mass/Vol] 102 mg/dL High 70-99 [facility] Comment on above: Performed By: #### 2 [id number] #### BRENT [employer] [address] [place] [address] Potassium [Moles/Vol] 3.9 mmol/L Normal 3.5-5.3 [facility] Comment on above: Performed By: #### 2 [id number] #### BRENT [employer] [address] [place] [address] Sodium [Moles/Vol] 138 mmol/L Normal 136-145 [facility] Comment on above: Performed By: #### 2 [id number] #### BRENT [employer] [address] [place] [address] Urea nitrogen [Mass/Vol] 12 mg/dL Normal 6-23 [facility] Comment on above: Performed By: #### 2 [id number] #### BRENT [employer] [address] [place] [address] Urea nitrogen/Creatinine [Mass ratio] 17.1 ratio Normal 5.4-30.0 [facility] Comment on above: Performed By: #### 2 [id number] #### BRENT [employer] [address] [place], [place] [id number] BhCG Qualon 03-01-2018 Beta hCG Ql Negative Normal Negative [facility] Comment on above: Performed By: #### 2 [id number] #### BRENT Chemistry Manual Subsection [address] [place], [place] [id number] CBC w/ Auto Diffon 8 Erythrocyte distribution width (RBC) [Ratio] 12.8 % Normal 11.5-14.5 [facility] Comment on above: Performed By: #### 2 [id number] #### BRENT RemHemo [address] [place], [place] [id number] Hematocrit (Bld) [Volume fraction] 39.6 % Normal 36.0-48.0 [facility] Comment on above: Performed By: #### 2 [id number] #### BRENT RemHemo [address] [place], [place] [id number] Hemoglobin (Bld) [Mass/Vol] 12.8 g/dL Normal 12.0-16.0 [facility] Comment on above: Performed By: #### 2 [id number] #### BRENT RemHemo [address] [place], [place] [id number] MCH (RBC) [Entitic mass] 28.2 pg Normal 27.0-31.0 [facility] Comment on above: Performed By: #### 2 [id number] #### BRENT RemHemo [address] [place], [place] [id number] MCHC (RBC) [Mass/Vol] 32.4 g/dL Low 33.0-37.0 [facility] Comment on above: Performed By: #### 2 [id number] #### BRENT RemHemo [address] [place] [address] MCV (RBC) [Entitic vol] 87.0 fL Normal 78.0-100.0 [facility] Comment on above: Performed By: #### 2 [id number] #### BRENT RemHemo [address] [place], [place] [id number] Platelet mean volume (Bld) [Entitic vol] 7.6 fL Normal 7.4-11.0 [facility] Comment on above: Performed By: #### 2 [id number] #### BRENT WhiteHemo [address] [place] [address] Platelets (Bld) [#/Vol] 357 E3/mcL Normal 130-400 [facility] Comment on above: Performed By: #### 2 [id number] #### BRENT WhiteHemo [facility] [place] [address] RBC (Bld) [#/Vol] 4.55 E6/mcL Normal 3.90-5.40 [facility] Comment on above: Performed By: #### 2 [id number] #### BRENT WhiteHemo [facility] [place] [address] WBC (Bld) [#/Vol] 11.5 E3/mcL High 3.6-11.0 [facility] Comment on above: Performed By: #### 2 [id number] #### BRENT WhiteHemo [facility] [place] [address] eGFRon 03-01-2018 GFR/1.73 sq M predicted among non-blacks MDRD (S/P/Bld) [Vol rate/Area] mL/min/{1.73_m2} Normal [facility] Comment on above: Order Comment: Order added by Discern Expert. Performed By: #### 1 [id number] #### BRENT [employer] [address] [place] [address] Vital Signs Date Time Vital Sign Value Performing Clinician Facility 12-16-2024 09:22040 Body height 167.64 cm No Primary Care Physician [facility] 12-16-2024 09:22-0400 Body mass index (BMI) [Ratio] 37.5 kg/m2 No Primary Care Physician [facility] 12-16-2024 09:22040 Body weight 105.34 kg No Primary Care Physician [facility] 12-16-2024 09:22-0400 Diastolic blood pressure 72 mm[Hg] No Primary Care Physician [facility] 12-16-2024 09:22-0400 Systolic blood pressure 119 mm[Hg] No Primary Care Physician [facility] 12-15-2024 18:04-0400 Body height 167.64 cm No Primary Care Physician [facility] 12-15-2024 18:04-0400 Body mass index (BMI) [Ratio] 37.3 kg/m2 No Primary Care Physician [facility] 12-15-2024 18:04-0400 Body weight 105 kg No Primary Care Physician [facility] 12-07-2024 14:06-0400 Body height 167.64 cm No Primary Care Physician [facility] 12-07-2024 14:06-0400 Body mass index (BMI) [Ratio] 37.5 kg/m2 No Primary Care Physician [facility] 12-07-2024 14:06-0400 Body weight 105.46 kg No Primary Care Physician [facility] 12-07-2024 14:06-0400 Diastolic blood pressure 72 mm[Hg] No Primary Care Physician [facility] 12-07-2024 14:06-0400 Systolic blood pressure 116 mm[Hg] No Primary Care Physician [facility] 12-07-2024 14:02-0400 Body temperature 98.4 [degF] No Primary Care Physician [facility] 12-07-2024 14:02-0400 Diastolic blood pressure 55 mm[Hg] No Primary Care Physician [facility] 12-07-2024 14:02-0400 Heart rate 71 /min No Primary Care Physician [facility] 12-07-2024 14:02-0400 Respiratory rate 16 /min No Primary Care Physician [facility] 12-07-2024 14:02-0400 SaO2% (BldA) [Mass fraction] 99 % No Primary Care Physician [facility] 12-07-2024 14:02-0400 Systolic blood pressure 102 mm[Hg] No Primary Care Physician [facility] 12-07-2024 11:36-0400 Body mass index (BMI) [Ratio] 36.3 kg/m2 No Primary Care Physician [facility] 12-07-2024 11:36-0400 Body weight 102.05 kg No Primary Care Physician [facility] 11-24-2024 12:32-0400 Diastolic blood pressure 63 mm[Hg] DEFINED NOT [facility] 11-24-2024 12:32-0400 Heart rate 68 /min DEFINED NOT [facility] 11-24-2024 12:32-0400 Respiratory rate 16 /min DEFINED NOT [facility] 11-24-2024 12:32-0400 Systolic blood pressure 98 mm[Hg] DEFINED NOT [facility] 11-24-2024 10:31-0400 Body height 167.64 cm DEFINED NOT [facility] 11-24-2024 10:31-0400 Body temperature 97.1 [degF] DEFINED NOT [facility] 11-24-2024 10:31-0400 SaO2% (BldA) [Mass fraction] 98 % DEFINED NOT [facility] 11-24-2024 09:40-0400 Body height 167.64 cm DEFINED NOT [facility] 11-24-2024 09:40-0400 Body mass index (BMI) [Ratio] 37.1 kg/m2 DEFINED NOT [facility] 11-24-2024 09:40-0400 Body weight 104.43 kg DEFINED NOT [facility] 11-24-2024 09:40-0400 Diastolic blood pressure 66 mm[Hg] DEFINED NOT [facility] 11-24-2024 09:40-0400 Systolic blood pressure 105 mm[Hg] DEFINED NOT [facility] 11-10-2024 13:12-0400 Body temperature 97.3 [degF] DEFINED NOT [facility] 11-10-2024 13:12-0400 Diastolic blood pressure 57 mm[Hg] DEFINED NOT [facility] 11-10-2024 13:12-0400 Heart rate 74 /min DEFINED NOT [facility] 11-10-2024 13:12-0400 Respiratory rate 16 /min DEFINED NOT [facility] 11-10-2024 13:12-0400 SaO2% (BldA) [Mass fraction] 99 % DEFINED [facility] 11-10-2024 13:12-0400 Systolic blood pressure 110 mm[Hg] DEFINED NOT [facility] 11-10-2024 10:43-0400 Body height 167.64 cm DEFINED NOT [facility] 11-10-2024 09:55-0400 Body height 167.64 cm DEFINED NOT [facility] 11-10-2024 09:55-0400 Body mass index (BMI) [Ratio] 36.3 kg/m2 DEFINED NOT [facility] 11-10-2024 09:55-0400 Body weight 102.17 kg DEFINED [facility] 11-10-2024 09:55-0400 Diastolic blood pressure 68 mm[Hg] DEFINED [facility] 11-10-2024 09:55-0400 Systolic blood pressure 105 mm[Hg] DEFINED [facility] 10-26-2024 09:55-0400 Body height 167.64 cm DEFINED [facility] 10-26-2024 09:53-0400 Body mass index (BMI) [Ratio] 36.3 kg/m2 DEFINED [facility] 10-26-2024 09:53-0400 Body weight 102.17 kg DEFINED [facility] 10-26-2024 09:53-0400 Diastolic blood pressure 75 mm[Hg] DEFINED [facility] 10-26-2024 09:53-0400 Systolic blood pressure 109 mm[Hg] DEFINED [facility] 09-28-2024 09:32-0400 Body mass index (BMI) [Ratio] 35.9 kg/m2 DEFINED [facility] 09-28-2024 09:32-0400 Body weight 101.15 kg DEFINED [facility] 09-28-2024 09:32-0400 Diastolic blood pressure 69 mm[Hg] DEFINED [facility] 09-28-2024 09:32-0400 Systolic blood pressure 103 mm[Hg] DEFINED [facility] 08-31-2024 09:40-0400 Body mass index (BMI) [Ratio] 34.5 kg/m2 DEFINED [facility] 08-31-2024 09:40-0400 Body weight 97.18 kg DEFINED [facility] 08-31-2024 09:40-0400 Diastolic blood pressure 64 mm[Hg] DEFINED [facility] 08-31-2024 09:40-0400 Systolic blood pressure 102 mm[Hg] DEFINED [facility] 08-29-2024 14:07-0400 Body temperature 98.8 [degF] DEFINED [facility] 08-29-2024 14:07-0400 Diastolic blood pressure 68 mm[Hg] DEFINED NOT [facility] 08-29-2024 14:07-0400 Heart rate 83 /min DEFINED [facility] 08-29-2024 14:07-0400 Respiratory rate 16 /min DEFINED NOT [facility] 08-29-2024 14:07-0400 Systolic blood pressure 116 mm[Hg] DEFINED [facility] 08-29-2024 13:51-0400 Body height 167.64 cm DEFINED [facility] 08-29-2024 13:51-0400 Body mass index (BMI) [Ratio] 34.3 kg/m2 DEFINED [facility] 08-29-2024 13:51-0400 Body weight 96.6 kg DEFINED [facility] 08-04-2024 09:20-0500 Body height 167.64 cm DEFINED [facility] 08-04-2024 09:20-0500 Body mass index (BMI) [Ratio] 33.5 kg/m2 DEFINED [facility] 08-04-2024 09:20-0500 Body weight 94.34 kg DEFINED [facility] 08-04-2024 09:20-0500 Diastolic blood pressure 50 mm[Hg] DEFINED NOT [facility] 08-04-2024 09:20-0500 Systolic blood pressure 95 mm[Hg] DEFINED [facility] 07-11-2024 14:22-0500 Body mass index (BMI) [Ratio] 32.8 kg/m2 DEFINED [facility] 07-11-2024 14:22-0500 Body weight 92.07 kg DEFINED [facility] 07-11-2024 14:22-0500 Diastolic blood pressure 63 mm[Hg] DEFINED NOT [facility] 07-11-2024 14:22-0500 Systolic blood pressure 97 mm[Hg] DEFINED [facility] 06-09-2024 11:31-0500 Body mass index (BMI) [Ratio] 32.8 kg/m2 DEFINED [facility] 06-09-2024 11:31-0500 Body weight 92.07 kg DEFINED [facility] 06-09-2024 11:31-0500 Diastolic blood pressure 73 mm[Hg] DEFINED NOT [facility] 06-09-2024 11:31-0500 Systolic blood pressure 111 mm[Hg] DEFINED NOT [facility] 03-09-2024 12:31-0400 Body height 167.6 cm Sierra Oberhauser DO Work Phone: [facility] 03-09-2024 12:31-0400 Body mass index (BMI) [Ratio] 33.25 kg/m2 Sierra Oberhauser DO Work Phone: [facility] 03-09-2024 12:31-0400 Body weight 93.44 kg Sierra Oberhauser DO Work Phone: [facility] 03-09-2024 12:31-0400 Diastolic blood pressure 72 mm[Hg] Sierra Oberhauser DO Work Phone: [facility] 03-09-2024 12:31-0400 Heart rate 89 /min Sierra Oberhauser DO Work Phone: [facility] 03-09-2024 12:31-0400 Systolic blood pressure 107 mm[Hg] Sierra Oberhauser DO Work Phone: [facility] 12-08-2023 15:38-0400 Body height 167.6 cm Jacquelyn Walker MD Work Phone: [facility] 12-08-2023 15:38-0400 Body mass index (BMI) [Ratio] 37.61 kg/m2 Jacquelyn Walker MD Work Phone: [facility] 12-08-2023 15:38-0400 Body weight 105.69 kg Jacquelyn Walker MD Work Phone: [facility] 12-08-2023 15:38-0400 Diastolic blood pressure 64 mm[Hg] Jacquelyn Walker MD Work Phone: [facility] 12-08-2023 15:38-0400 Systolic blood pressure 112 mm[Hg] Jacquelyn Walker MD Work Phone: [facility] 04-09-2023 13:57-0500 Body height 167.6 cm Jimena Gracia DO Work Phone: [employer] 04-09-2023 13:57-0500 Body mass index (BMI) [Ratio] 45.84 kg/m2 Jimena Gracia DO Work Phone: [employer] 04-09-2023 13:57-0500 Body weight 128.82 kg Jimena Gracia DO Work Phone: [employer] 04-09-2023 13:57-0500 Diastolic blood pressure 79 mm[Hg] Jimena Gracia DO Work Phone: [employer] 04-09-2023 13:57-0500 Heart rate 92 /min Jimena Gracia DO Work Phone: [employer] 04-09-2023 13:57-0500 SaO2% (BldA) [Mass fraction] 99 % Jimena Gracia DO Work Phone: [employer] 04-09-2023 13:57-0500 Systolic blood pressure 129 mm[Hg] Jimena Gracia DO Work Phone: [employer] 03-31-2023 13:49-0400 Body height 167.6 cm Jimena Gracia DO Work Phone: [employer] 03-31-2023 13:49-0400 Body mass index (BMI) [Ratio] 46.39 kg/m2 Jimena Gracia DO Work Phone: [employer] 03-31-2023 13:49-0400 Body weight 130.36 kg Jimena Gracia DO Work Phone: [employer] 03-31-2023 13:49-0400 Diastolic blood pressure 93 mm[Hg] Jimena Basil DO Work Phone: [employer] 03-31-2023 13:49-0400 Heart rate 81 /min Jimena Basil DO Work Phone: [employer] 03-31-2023 13:49-0400 SaO2% (BldA) [Mass fraction] 98 % Jimena Gracia DO Work Phone: [employer] 03-31-2023 13:49-0400 Systolic blood pressure 144 mm[Hg] Jimena Gracai DO Work Phone: [employer] 03-12-2023 11:38-0400 Body temperature 98.6 [degF] Jimena Gracia DO Work Phone: [employer] 03-12-2023 11:38-0400 Diastolic blood pressure 87 mm[Hg] Jimena Gracia DO Work Phone: [employer] 03-12-2023 11:38-0400 Heart rate 66 /min Jimena Gracia DO Work Phone: [employer] 03-12-2023 11:38-0400 Respiratory rate 18 /min Jimena Gracia DO Work Phone: [employer] 03-12-2023 11:38-0400 SaO2% (BldA) [Mass fraction] 98 % Jimena Gracia DO Work Phone: [employer] 03-12-2023 11:38-0400 Systolic blood pressure 137 mm[Hg] Jimena Gracia DO Work Phone: [employer] 03-12-2023 05:40-0400 Body mass index (BMI) [Ratio] 50.91 kg/m2 Jimena Gracia DO Work Phone: [employer] 03-12-2023 05:40-0400 Body weight 143.06 kg Jimena Gracia DO Work Phone: [employer] 03-11-2023 10:57-0400 Body height 167.6 cm Jimena Gracia DO Work Phone: [employer] 02-19-2023 11:20-0400 Body height 167.6 cm Jimena Gracia DO Work Phone: [employer] 02-19-2023 11:20-0400 Body mass index (BMI) [Ratio] 49.55 kg/m2 Jimena Gracia DO Work Phone: [employer] 02-19-2023 11:20-0400 Body weight 139.25 kg Jimena Gracia DO Work Phone: [employer] 02-19-2023 11:20-0400 Diastolic blood pressure 85 mm[Hg] Jimena Gracia DO Work Phone: [employer] [facility] 02-19-2023 11:20-0400 Heart rate 83 /min Jimena Gracia DO Work Phone: [employer] 02-19-2023 11:20-0400 SaO2% (BldA) [Mass fraction] 86 % Jimena Gracia DO Work Phone: [employer] 02-19-2023 11:20-0400 Systolic blood pressure 139 mm[Hg] Jimena Gracia DO Work Phone: [employer] [facility] 01-22-2023 16:05-0400 Body height 167.6 cm Sierra Oberhauser DO Work Phone: [facility] 01-22-2023 16:05-0400 Body mass index (BMI) [Ratio] 49.87 kg/m2 Sierra Oberhauser DO Work Phone: [facility] 01-22-2023 16:05-0400 Body weight 140.16 kg Sierra Oberhauser DO Work Phone: [facility] 01-22-2023 16:05-0400 Diastolic blood pressure 75 mm[Hg] Sierra Oberhauser DO Work Phone: [facility] 01-22-2023 16:05-0400 Heart rate 74 /min Sierra Oberhauser DO Work Phone: [facility] 01-22-2023 16:05-0400 Systolic blood pressure 127 mm[Hg] Sierra Oberhauser DO Work Phone: [facility] 12-01-2022 15:00-0400 Body height 167.64 cm Sierra Dodd Oberhauser Work Phone: [address] Work Phone: 12-01-2022 15:00-0400 Body mass index (BMI) [Ratio] 50.24 kg/m2 Sierra L Oberhauser Work Phone: [address] Work Phone: 12-01-2022 15:00-0400 Body surface area Derived from formula 2.41 m2 Sierra L Oberhauser Work Phone: [address] Work Phone: 12-01-2022 15:00-0400 Body weight 141.2 kg Sierra L Oberhauser Work Phone: [address] Work Phone: 12-01-2022 15:00-0400 Diastolic blood pressure 72 mm[Hg] Sierra L Oberhauser Work Phone: [address] Work Phone: 12-01-2022 15:00-0400 Systolic blood pressure 124 mm[Hg] Sierra L Oberhauser Work Phone: [address] Work Phone: 10-30-2022 14:19-0400 Body height 167.6 cm Shavonne Suzanna MANUFACTURING INDUSTRIAL ENGINEER-[employer] EQUIPMENT OPERATOR Work Phone: [employer] 10-30-2022 14:19-0400 Body mass index (BMI) [Ratio] 51.49 kg/m2 Shavonne Suzanna MANUFACTURING INDUSTRIAL ENGINEER-[employer] EQUIPMENT OPERATOR Work Phone: [employer] 10-30-2022 14:19-0400 Body temperature 99 [degF] Shavonne Suzanna MANUFACTURING INDUSTRIAL ENGINEER-[employer] EQUIPMENT OPERATOR Work Phone: [employer] 10-30-2022 14:19-0400 Body weight 144.7 kg Shavonne Suzanna MANUFACTURING INDUSTRIAL ENGINEER-[employer] EQUIPMENT OPERATOR Work Phone: [employer] 10-30-2022 14:19-0400 Diastolic blood pressure 76 mm[Hg] Shavonne Suzanna MANUFACTURING INDUSTRIAL ENGINEER-[employer] EQUIPMENT OPERATOR Work Phone: [employer] 10-30-2022 14:19-0400 Heart rate 81 /min Shavonne Suzanna MANUFACTURING INDUSTRIAL ENGINEER-[employer] EQUIPMENT OPERATOR Work Phone: [employer] [facility] 10-30-2022 14:19-0400 SaO2% (BldA) [Mass fraction] 96 % Shavonne Suzanna MANUFACTURING INDUSTRIAL ENGINEER-[employer] EQUIPMENT OPERATOR Work Phone: [employer] 10-30-2022 14:19-0400 Systolic blood pressure 118 mm[Hg] Shavonne Tomlinsonion MANUFACTURING INDUSTRIAL ENGINEER-[employer] EQUIPMENT OPERATOR Work Phone: [employer] 10-03-2022 15:16-0400 Body height 167.64 cm Sierra Yousif Oberhauser Work Phone: WW-Oywhzzvvrq-Qdrk [address] Work Phone: 10-03-2022 15:16-0400 Body mass index (BMI) [Ratio] 51.24 kg/m2 Sierra Yousif Oberhauser Work Phone: OJ[facility]Hluvqmiang[facility]Ul[facility] [address] Work Phone: 10-03-2022 15:16-0400 Body surface area Derived from formula 2.43 m2 Sierra Yousif Oberhauser Work Phone: RT-Yjciopwqac-Tmfw [address] Work Phone: 10-03-2022 15:16-0400 Body weight 143.99 kg Sierra Yousif Oberhauser Work Phone: NN-Jwgmktuicu-Ugqw [address] Work Phone: 10-03-2022 15:16-0400 Diastolic blood pressure 76 mm[Hg] Sierra L Oberhauser Work Phone: GH-Xdsmptyvjr-[facility] [address] Work Phone: 10-03-2022 15:16-0400 Heart rate 100 /min Sierra L Oberhauser Work Phone: IW-Iswiyhjdjz-Syjr [address] Work Phone: 10-03-2022 15:16-0400 SaO2% (BldA) [Mass fraction] 97 % Sierra Ordonezerhauser Work Phone: SS-Szhuksjwql-Pzrt [address] Work Phone: 10-03-2022 15:16-0400 Systolic blood pressure 108 mm[Hg] Sierra Ordonezerhauser Work Phone: BM-Kagfjjymzg-Yoei [address] Work Phone: 02-28-2022 15:38-0400 Body height 167.6 cm Anthony Yanez MD Work Phone: [facility] 02-28-2022 15:38-0400 Body mass index (BMI) [Ratio] 51.81 kg/m2 Anthony Yanez MD Work Phone: [facility] 02-28-2022 15:38-0400 Body weight 145.6 kg Anthony Yanez MD Work Phone: [facility] 02-28-2022 15:38-0400 Diastolic blood pressure 82 mm[Hg] Anthony Yanez MD Work Phone: [facility] 02-28-2022 15:38-0400 Heart rate 87 /min Anthony Yanez MD Work Phone: [facility] 02-28-2022 15:38-0400 Systolic blood pressure 140 mm[Hg] Anthony Yanez MD Work Phone: [facility] 02-27-2022 21:15-0400 Diastolic blood pressure 82 mm[Hg] [facility] 02-27-2022 21:15-0400 Heart rate 86 /min [facility] 02-27-2022 21:15-0400 SaO2% (BldA) [Mass fraction] 97 % [facility] 02-27-2022 21:15-0400 Systolic blood pressure 117 mm[Hg] Avg [facility] 01-24-2022 22:29-0400 Diastolic blood pressure 72 mm[Hg] Avg [facility] 4 [facility] 01-24-2022 22:29-0400 Systolic blood pressure 116 mm[Hg] [facility] 12-30-2021 14:50-0400 Body height 167.6 cm Cassidy Thomas [employer] EQUIPMENT OPERATOR Work Phone: [facility] 12-30-2021 14:50-0400 Body mass index (BMI) [Ratio] 51.81 kg/m2 Cassidy Thomas [employer] EQUIPMENT OPERATOR Work Phone: [facility] 12-30-2021 14:50-0400 Body weight 145.6 kg Cassidy Thomas [employer] EQUIPMENT OPERATOR Work Phone: [facility] 12-24-2021 15:18-0400 Body height 167.6 cm Shavonne Suzanna MANUFACTURING INDUSTRIAL ENGINEER-[employer] EQUIPMENT OPERATOR Work Phone: [facility] 12-24-2021 15:18-0400 Body mass index (BMI) [Ratio] 52.39 kg/m2 Shavonne Suzanna MANUFACTURING INDUSTRIAL ENGINEER-[employer] EQUIPMENT OPERATOR Work Phone: [facility] 12-24-2021 15:18-0400 Body weight 147.24 kg Shavonne Suzanna MANUFACTURING INDUSTRIAL ENGINEER-[employer] EQUIPMENT OPERATOR Work Phone: [facility] 12-24-2021 15:18-0400 Diastolic blood pressure 86 mm[Hg] Shavonne Suzanna MANUFACTURING INDUSTRIAL ENGINEER-[employer] EQUIPMENT OPERATOR Work Phone: [facility] 12-24-2021 15:18-0400 Heart rate 85 /min Shavonne Suzanna MANUFACTURING INDUSTRIAL ENGINEER-[employer] EQUIPMENT OPERATOR Work Phone: [facility] 12-24-2021 15:18-0400 Respiratory rate 16 /min Shavonne Suzanna MANUFACTURING INDUSTRIAL ENGINEER-LONGSHORE EQUIPMENT OPERATOR Work Phone: [facility] 12-24-2021 15:18-0400 SaO2% (BldA) [Mass fraction] 97 % Shavonne Suzanna MANUFACTURING INDUSTRIAL ENGINEER-LONGSHORE EQUIPMENT OPERATOR Work Phone: [employer] [facility] 12-24-2021 15:18-0400 Systolic blood pressure 130 mm[Hg] Shavonne Briseno MANUFACTURING INDUSTRIAL ENGINEER-LONGSHORE EQUIPMENT OPERATOR Work Phone: [employer] [facility] 12-05-2021 13:42-0400 Body height 167.64 cm Sierra L Oberhauser Work Phone: HG-Ochwxsuhrq-Fuiy [address] Work Phone: 12-05-2021 13:42-0400 Body mass index (BMI) [Ratio] 51.81 kg/m2 Sierra L Oberhauser Work Phone: QD-Gkobmlpmbv-Aszw [address] Work Phone: 12-05-2021 13:42-0400 Body surface area Derived from formula 2.45 m2 Sierra L Oberhauser Work Phone: NU-Bxystjyzim-Dvil [address] Work Phone: 12-05-2021 13:42-0400 Body weight 145.61 kg Sierra L Oberhauser Work Phone: BJ-Xpdursllfc-Qnuy [address] Work Phone: 12-05-2021 13:42-0400 Diastolic blood pressure 74 mm[Hg] Sierra L Oberhauser Work Phone: HZ-Kyhxcquehe-Bmfe [address] Work Phone: 12-05-2021 13:42-0400 Heart rate 71 /min Sierra L Oberhauser Work Phone: HS-Ihmytldids-Cddv [address] Work Phone: 12-05-2021 13:42-0400 SaO2% (BldA) [Mass fraction] 98 % Sierra L Oberhauser Work Phone: CW-Avylwdzcrf-Zvuz [address] Work Phone: 12-05-2021 13:42-0400 Systolic blood pressure 136 mm[Hg] Sierra L Oberhauser Work Phone: TR-Ohcvnxecur-Ipmt [address] Work Phone: 11-28-2021 13:40-0400 Body height 167.64 cm Sierra L Oberhauser Work Phone: [facility] Work Phone: 11-28-2021 13:40-0400 Body mass index (BMI) [Ratio] 52.62 kg/m2 Sierra L Oberhauser Work Phone: [facility] Work Phone: 11-28-2021 13:40-0400 Body surface area Derived from formula 2.46 m2 Sierra L Oberhauser Work Phone: [facility] Work Phone: 11-28-2021 13:40-0400 Body weight 147.87 kg Sierra L Oberhauser Work Phone: [facility] Work Phone: 11-28-2021 13:40-0400 Diastolic blood pressure 82 mm[Hg] Sierra L Oberhauser Work Phone: [facility] Work Phone: 11-28-2021 13:40-0400 Heart rate 84 /min Sierra L Oberhauser Work Phone: [facility] Work Phone: 11-28-2021 13:40-0400 Systolic blood pressure 139 mm[Hg] Sierra L Oberhauser Work Phone: [facility] Work Phone: 11-23-2021 20:30-0400 Diastolic blood pressure 87 mm[Hg] Sierra Oberhauser Other Phone: [facility] 06-25-2022 20:30-0400 Heart rate 79 /min Sierra Oberhauser Other Phone: [facility] 11-23-2021 20:30-0400 Respiratory rate 17 /min Sierra Oberhauser Other Phone: [facility] 11-23-2021 20:30-0400 SaO2% (BldA) [Mass fraction] 95 % Sierra Oberhauser Other Phone: [facility] 11-23-2021 20:30-0400 Systolic blood pressure 116 mm[Hg] Sierra Oberhauser Other Phone: [facility] 11-23-2021 17:59-0400 Body height 167.6 cm Sierra Oberhauser Other Phone: [facility] 11-23-2021 17:59-0400 Body temperature 98.78 [degF] Sierra Oberandreser Other Phone: [facility] 11-23-2021 17:59-0400 Body weight 139 kg Sierra Oberhauser Other Phone: [facility] 10-30-2021 14:58-0400 Body height 167.64 cm Sierra L Oberhauser [facility] Work Phone: 10-30-2021 14:58-0400 Body mass index (BMI) [Ratio] 52.27 kg/m2 Sierra L Oberhauser Work Phone: [facility] Work Phone: 10-30-2021 14:58-0400 Body surface area Derived from formula 2.45 m2 Sierra L Oberhauser Work Phone[facility] Work Phone: 10-30-2021 14:58-0400 Body weight 146.9 kg Sierra L Oberhauser Work Phone: [facility] Work Phone: 10-30-2021 14:58-0400 Diastolic blood pressure 80 mm[Hg] Sierra L Oberhauser [facility] Work Phone: 10-30-2021 14:58-0400 Systolic blood pressure 120 mm[Hg] Sierra L Oberhauser Work Phone: [facility] Work Phone: 10-29-2021 14:42-0400 Body height 167.64 cm Sierra L Oberhauser Work Phone: [facility] [place] Work Phone: 10-29-2021 14:42-0400 Body mass index (BMI) [Ratio] 52.3 kg/m2 Sierra L Oberhauser Work Phone: [facility] [place] Work Phone: 10-29-2021 14:42-0400 Body surface area Derived from formula 2.46 m2 Sierra L Oberhauser Work Phone: [facility] Work Phone: 10-29-2021 14:42-0400 Body weight 146.97 kg Sierra L Oberhauser Work Phone: [facility] [place] Work Phone: 10-29-2021 14:42-0400 Diastolic blood pressure 79 mm[Hg] Sierra L Oberhauser Work Phone: [facility] [place] Work Phone: 10-29-2021 14:42-0400 Heart rate 79 /min Sierra L Oberhauser Work Phone: [facility] Work Phone: 10-29-2021 14:42-0400 Systolic blood pressure 125 mm[Hg] Sierra L Oberhauser Work Phone: [facility] Work Phone: 10-25-2021 14:11-0400 Body mass index (BMI) [Ratio] 51.68 kg/m2 Marcia Currie [facility] 10-25-2021 14:11-0400 Body weight 145.24 kg Marcia Currie [facility] 09-03-2021 13:39-0400 Body height 167.64 cm Sierra L Oberhauser Work Phone: [facility] Work Phone: 09-03-2021 13:39-0400 Body mass index (BMI) [Ratio] 51.65 kg/m2 Sierra L Oberhauser Work Phone: [facility] Work Phone: 09-03-2021 13:39-0400 Body surface area Derived from formula 2.44 m2 Sierra L Oberhauser Work Phone: [facility] Work Phone: 09-03-2021 13:39-0400 Body weight 145.15 kg Sierra L Oberhauser Work Phone: [facility] Work Phone: 09-03-2021 13:39-0400 Diastolic blood pressure 85 mm[Hg] Sierra L Oberhauser Work Phone: [facility] Work Phone: 09-03-2021 13:39-0400 Heart rate 77 /min Sierra L Oberhauser Work Phone: [facility] Work Phone: 09-03-2021 13:39-0400 Systolic blood pressure 137 mm[Hg] Sierra L Oberhauser Work Phone: [facility] Work Phone: 02-28-2021 14:32-0400 Body height 167.64 cm Sierra L Oberhauser Work Phone: [facility] Work Phone: 02-28-2021 14:32-0400 Body mass index (BMI) [Ratio] 53.49 kg/m2 Sierra L Oberhauser Work Phone: [facility] [place] Work Phone: 02-28-2021 14:32-0400 Body surface area Derived from formula 2.48 m2 Sierra L Oberhauser Work Phone: [facility] Work Phone: 02-28-2021 14:32-0400 Body temperature 98.6 [degF] Sierra L Oberhauser Work Phone: [facility] Work Phone: 02-28-2021 14:32-0400 Body weight 150.32 kg Sierra L Oberhauser Work Phone: [facility] Work Phone: 02-28-2021 14:32-0400 Diastolic blood pressure 95 mm[Hg] Sierra L Oberhauser Work Phone: [facility] [place] Work Phone: 02-28-2021 14:32-0400 Heart rate 82 /min Sierra L Oberhauser Work Phone: [facility] Work Phone: 02-28-2021 14:32-0400 SaO2% (BldA) [Mass fraction] 97 % Sierra L Oberhauser Work Phone: [facility] Work Phone: 02-28-2021 14:32-0400 Systolic blood pressure 152 mm[Hg] Sierra L Oberhauser Work Phone: [facility] Work Phone: 12-28-2020 09:09-0400 Body height 167.6 cm Rajiv Kemp MD Work Phone: [facility] 12-28-2020 09:09-0400 Body mass index (BMI) [Ratio] 54.07 kg/m2 Rajiv Kemp MD Work Phone: [facility] 12-28-2020 09:09-0400 Body temperature 97.3 [degF] Rajiv Kemp MD Work Phone: [facility] 12-28-2020 09:09-0400 Body weight 151.96 kg Rajiv Kemp MD Work Phone: [facility] 12-28-2020 09:09-0400 Diastolic blood pressure 72 mm[Hg] Rajiv Kemp MD Work Phone: [facility] 12-28-2020 09:09-0400 Heart rate 86 /min Rajiv Kemp MD Work Phone: [facility] 12-28-2020 09:09-0400 SaO2% (BldA) [Mass fraction] 98 % Rajiv Kemp MD Work Phone: [facility] 12-28-2020 09:09-0400 Systolic blood pressure 148 mm[Hg] Rajiv Kemp MD Work Phone: [facility] 10-25-2020 10:57-0400 Body height 165.1 cm Sierra Ordonezerhauser Work Phone: [facility] Gastroenterology-[facility] [address] Work Phone: 10-25-2020 10:57-0400 Body mass index (BMI) [Ratio] 52.75 kg/m2 Sierra L Oberhauser Work Phone: [facility] Work Phone: 10-25-2020 10:57-0400 Body surface area Derived from formula 2.41 m2 Sierra L Oberhauser Work Phone: [facility] [address] Work Phone: 10-25-2020 10:57-0400 Body temperature 97.5 [degF] Sierra L Oberhauser Work Phone: [facility]astroenter[facility] [address] Work Phone: 10-25-2020 10:57-0400 Body weight 143.79 kg Sierra L Oberhauser Work Phone: [facility]enter[facility] Work Phone: 10-25-2020 10:57-0400 Diastolic blood pressure 70 mm[Hg] Sierra L Oberhauser Work Phone: [facility]astroenter[facility] [address] Work Phone: 10-25-2020 10:57-0400 Heart rate 85 /min Sierra L Oberhauser Work Phone: [facility]enter[facility] [address] Work Phone: 10-25-2020 10:57-0400 Respiratory rate 16 /min Sierra L Oberhauser Work Phone: [facility]astroenter[facility] [address] Work Phone: 10-25-2020 10:57-0400 Systolic blood pressure 120 mm[Hg] Sierra L Oberhauser Work Phone: [facility] Gastroenterology-[facility] [address] Work Phone: 09-11-2020 17:34-0400 BMI (Body Mass Index) 52.75 kg/m2 Sierra Oberhauser [facility] Work Phone: 09-11-2020 17:34-0400 Body Temperature 97.3 [degF] Sierra Oberhauser [facility] Work Phone: 09-11-2020 17:34-0400 Body weight 143.79 kg Sierra Santos [facility] Work Phone: 09-11-2020 17:34-0400 BP Diastolic 82 mm[Hg] Sierra Santos [facility] Work Phone: 09-11-2020 17:34-0400 BP Systolic 127 mm[Hg] Sierra Santos [facility] Work Phone: 09-11-2020 17:34-0400 BSA (Body Surface Area) 2.41 m2 [facility] Work Phone: 09-11-2020 17:34-0400 Height 165.1 cm Sierra Santos [facility] Work Phone: 09-11-2020 17:34-0400 Pulse (Heart Rate) 100 /min Sierra Santos [facility] Work Phone: 01-09-2020 16:53-0400 BMI (Body Mass Index) 49.38 kg/m2 Rosalba Castillo [facility] [address] Work Phone: 01-09-2020 16:53-0400 Body Temperature 97.5 [degF] Rosalba Castillo [facility] [address] Work Phone: Comment on above: Method: Temporal 01-09-2020 16:53-0400 Body weight 138.7 kg Rosalba Castillo [facility] [address] Work Phone: 01-09-2020 16:53-0400 BP Diastolic 60 mm[Hg] Rosalba Desoto [facility] [address] Work Phone: Comment on above: Location: LUE; Position: Sitting 01-09-2020 16:53-0400 BP Systolic 122 mm[Hg] Rosalba Castillo [facility] [address] Work Phone: Comment on above: Location: LUE; Position: Sitting 01-09-2020 16:53-0400 BSA (Body Surface Area) 2.4 m2 [facility] [address] Work Phone: 01-09-2020 16:53-0400 Height 167.59 cm [facility]na [facility] [address] Work Phone: 12-05-2019 16:22-0400 BMI (Body Mass Index) 49.42 kg/m2 [facility] [address] Work Phone: 12-05-2019 16:22-0400 Body Temperature 97.5 [degF] [facility] [address] Work Phone: Comment on above: Method: Temporal 12-05-2019 16:22-0400 Body weight 138.8 kg Rosalba Thomas [facility] [address] Work Phone: 12-05-2019 16:22-0400 BP Diastolic 78 mm[Hg] [facility] [address] Work Phone: Comment on above: Location: LUE; Position: Sitting 12-05-2019 16:22-0400 BP Systolic 122 mm[Hg] [facility] [address] Work Phone: Comment on above: Location: LUE; Position: Sitting 12-05-2019 16:22-0400 BSA (Body Surface Area) 2.4 m2 Rosalba Thomas [facility] [address] Work Phone: 12-05-2019 16:22-0400 Height 167.59 cm [facility] [address] Work Phone: 11-07-2019 16:44-0400 BMI (Body Mass Index) 50.23 kg/m2 Rosalba Thomas [facility] [address] Work Phone: 11-07-2019 16:44-0400 Body Temperature 97.3 [degF] Rosalbajayna Thomas [facility] [address] Work Phone: Comment on above: Method: Temporal 11-07-2019 16:44-0400 Body weight 141.07 kg [facility] [address] Work Phone: 11-07-2019 16:44-0400 BP Diastolic 74 mm[Hg] [facility] [address] Work Phone: Comment on above: Location: LUE; Position: Sitting 11-07-2019 16:44-0400 BP Systolic 124 mm[Hg] Rosalba [facility] [address] Work Phone: Comment on above: Location: LUE; Position: Sitting 11-07-2019 16:44-0400 BSA (Body Surface Area) 2.41 m2 [facility] [address] Work Phone: 11-07-2019 16:44-0400 Height 167.59 cm Rosalba [facility] [address] Work Phone: 11-26-2018 05:05-0400 Body weight 127.4616 kg [facility] Comment on above: Performed By: #### [id number] #### BRENT Rui [address] [place] [address] Encounters Encounter Date Encounter Type Care Provider Facility Start: 12-23-2024 ambulatory No Primary Car e Physician Facility:[facility] Start: 12-16-2024 End: 12-16-[address] Adelaida Burnett DO -[facility] Work Phone: Start: 12-16-2024 End: 12-16-2024 ambulatory No Primary Care Physician -[facility] Start: 12-15-2024 ambulatory Adelaida Chacko cility:[facility] Start: 12-15-2024 Non-patient / Non-visit Dr. Nestor Burnett DO -[facility] Start: 12-15-2024 End: 12-15-2024 ambulatory No Primary Care Physician -[facility] Start: 12-15-2024 End: 12-15-[address] [facility] Work Phone: Start: 12-15-2024 End: 12-15-2024 [facility] Start: 12-07-2024 End: 12-07-2024 Patient encounter procedure Luisa DONOVAN -[facility] Work Phone: Start: 12-07-2024 End: 12-07-2024 ambulatory No Primary Care Physician -[facility] Start: 12-07-2024 End: 12-07-[address] Adelaida Burnett DO -[facility] Work Phone: Start: 12-07-2024 End: 12-07-2024 ambulatory No Primary Care Physician -[facility] Start: 11-24-2024 End: 11-24-[address] Isabel Luz MD -[facility] Work Phone: Start: 11-24-2024 End: 11-24-2024 ambulatory DEFINED NOT [facility] Work Phone: Start: 11-17-2024 End: 11-17-2024 [facility] Start: 11-10-2024 End: 11-10-2024 Patient encounter procedure Jocelyn Malcolm CNM -[facility] Work Phone: Start: 11-10-2024 End: 11-10-2024 ambulatory DEFINED NOT [facility] Work Phone: Start: 10-26-2024 End: 10-26-[address] Adelaida Burnett DO -[facility] Work Phone: Start: 10-26-2024 End: 10-26-2024 ambulatory DEFINED NOT [facility] Work Phone: Start: 10-26-2024 End: 10-26-2024 ambulatory Adelaida Burnett Facility:[facility] Start: 10-18-2024 End: 10-18-2024 ambulatory ELIZLIBBY CHANCE [facility] Start: 10-14-2024 ambulatory No Primary Car e Physician Facility:[facility] Start: 09-28-2024 End: 09-28-[address] Isabel Luz MD -[facility] Work Phone: Start: 09-28-2024 End: 09-28-2024 ambulatory No Primary Care Physician Facility:[facility] Start: 09-28-2024 End: 09-28-2024 ambulatory No Primary Care Physician Facility:[facility] Start: 08-31-2024 End: 08-31-2024 Patient encounter procedure Luisa DONOVAN -[facility] Work Phone: Start: 08-31-2024 End: 08-31-2024 ambulatory No Primary Care Physician Facility:[facility] Start: 08-30-2024 ambulatory No Primary Car e Physician Facility:[facility] Start: 08-30-2024 Non-patient / Non-visit Dr. Ricardo Luz MD -[facility] Start: 08-29-2024 End: 08-29-2024 ambulatory DEFINED NOT [facility] Work Phone: Start: 08-29-2024 End: 08-29-[address] Isabel Luz MD -[facility] Work Phone: Start: 08-25-2024 End: 08-25-2024 ambulatory JERE MCCLELLAN [facility] Start: 08-11-2024 End: 08-11-2024 ambulatory ADELAIDA DENNY [facility] Start: 08-04-2024 End: 08-04-[address] Isabel Luz MD -[facility] Work Phone: Start: 08-04-2024 End: 08-04-2024 ambulatory DEFINED [facility] Work Phone: Start: 07-11-2024 End: 07-11-[address] Adelaida Burnett DO -[facility] Work Phone: Start: 07-11-2024 End: 07-11-2024 ambulatory Adelaida Burnett Facility:[facility] Start: 06-09-2024 End: 06-09-2024 Patient encounter procedure Jocelyn Malcolm CNM -Laboratory, Specimen Work Phone: Start: 06-09-2024 End: 06-09-2024 Patient encounter procedure Jocelyn TERRYM -[facility] Work Phone: Start: 06-09-2024 End: 06-09-2024 ambulatory Jocelyn Malcolm Facility:[facility] Start: 06-09-2024 End: 06-09-2024 ambulatory Jocelyn Malcolm Facility:[facility] Start: 05-17-2024 End: 05-17-2024 Emergency department patient visit [facility] Start: 05-13-2024 Non-patient / Non-visit Rosisaulo Navarroese [facility] Work Phone: Start: 05-13-2024 End: 05-13-2024 ambulatory [facility] Start: 05-06-2024 End: 05-06-2024 ambulatory [facility] Start: 03-09-2024 End: 03-09-2024 Office outpatient visit 15 minutes Sierra Santos DO Work Phone: [facility] Comment on above: Attention deficit hy peractivity disorder (ADHD), combined type (Primary Dx) Start: 03-09-2024 End: 03-09-2024 ambulatory [facility] Start: 03-07-2024 End: 03-07-2024 ambulatory [facility] Start: 12-08-2023 End: 12-08-2023 Patient encounter status Jacquelyn Walker MD Work Phone: [facility] Start: 12-08-2023 End: 12-08-2023 Periodic preventive med est patient 18-39 yrs Jacquelyn Walker MD Work Phone: [facility] Comment on above: Encounter for gyneco logical examination without abnormal finding; Encounter for screening for cervical cancer Start: 12-08-2023 End: 12-08-2023 ambulatory [facility] Start: 12-08-2023 End: 12-08-2023 Encounter for gynecological examination (general) (routine) without abnormal findings [facility] Start: 11-26-2023 End: 11-26-2023 Office outpatient visit 15 minutes Sierra Santos DO Work Phone: [facility] Comment on above: Attention deficit hy peractivity disorder (ADHD), combined type (Primary Dx) Start: 11-26-2023 End: 11-26-2023 ambulatory [facility] Start: 08-05-[address] [facility] Start: 08-05-2023 End: 08-05-2023 ambulatory [facility] Start: 08-05-2023 End: 08-05-2023 Encounter for antibody response examination [facility] Start: 04-09-[address] [facility] Start: 04-09-2023 End: 04-09-2023 Postop follow up visit related to original px Jimena Gracia DO Work Phone: [facility] Comment on above: S/P laparoscopic sle brant gastrectomy (Primary Dx) Start: 03-31-2023 End: 03-31-2023 Postop follow up visit related to original px Jimena Gracia DO Work Phone: [facility] Comment on above: S/P gastric sleeve p rocedure (Primary Dx) Start: 03-31-2023 ambulatory SELF SELF [facility] Start: 03-11-2023 End: 03-12-2023 Encounter for other preprocedural examination JIMENA [facility] Start: 03-11-2023 End: 03-12-2023 Evaluation and management of inpatient JIMENA GRACIA [facility] Start: 03-11-2023 End: 03-12-2023 Evaluation and management of inpatient Jimena Gracia DO Work Phone: [facility] Comment on above: S/P gastric sleeve p rocedure Start: 03-11-2023 End: 03-12-2023 Patient encounter status Jimena Gracia DO Work Phone: [facility] Start: 02-24-2023 ambulatory JIMENA [facility] Start: 02-19-2023 End: 02-19-2023 Office outpatient visit 25 minutes Jimena Gracia DO Work Phone: [facility] Comment on above: Morbid obesity with body mass index of 50 or higher (Primary Dx); Essential hypertension Start: 02-19-2023 ambulatory [facility] Start: 02-10-2023 ambulatory [facility] Start: 02-03-[address] [facility] Start: 01-22-2023 End: 01-22-2023 Office outpatient visit 15 minutes Sierra Santos DO Work Phone: [facility] Comment on above: Attention deficit hy peractivity disorder (ADHD), combined type (Primary Dx) Start: 12-09-2022 Chart Update Sierra ying Work Phone: [employer] Work Phone: Start: 12-04-2022 Encounter for gynecological examination (general) (routine) without abnormal findings JACQUELYN WALKER [facility] Start: 12-01-2022 Encounter for gynecological examination (general) (routine) without abnormal findings Dr. Sierra Santos Facility:[facility] Start: 12-01-2022 Periodic preventive med est patient 18-39 yrs Sierra Santos Work Phone: [employer] Work Phone: Start: 12-01-[address] Sierra Santos Facility:[facility] Start: 11-19-2022 Telephone encounter Vick parks MD Work Phone: [facility] Laproscopic Surgery Comment on above: Appointment Request (TIRE DEBEADER Appt) Start: 11-17-2022 ambulatory JIMENA GRACIA [facility] Start: 11-17-2022 End: 11-17-2022 Subsequent hospital visit by physician Jimena Gracia DO Work Phone: [facility] Diagnostic Radiology Comment on above: Arrived Start: 10-30-2022 ambulatory SHAVONNE Hood SUZANNA [facility] Start: 10-30-2022 End: 10-30-2022 Office outpatient visit 25 minutes Shavonne Erwin TomlinsonSuzanna MANUFACTURING INDUSTRIAL ENGINEER-[employer]ORE EQUIPMENT OPERATOR Work Phone: [facility] Pulmonary Disease [facility] Comment on above: Obstructive sleep ap piedad (Primary Dx); Sleep related hypoxia; Overweight; Encounter for review of form with patient Start: 10-13-2022 ambulatory JOSHUA Radha AKERS [facility] Start: 10-06-2022 ambulatory JOSHUA R [facility] Start: 10-03-2022 Office outpatient vi sit 15 minutes Sierra Santos Work Phone: [address] Work Phone: Start: 10-03-2022 ambulatory Jimena Gracia Fa cility:[id number] Start: 09-25-2022 End: 09-25-2022 Office outpatient visit 10 minutes Sierra Santos DO Work Phone: [facility] Comment on above: Hair loss (Primary D x); Other fatigue; Screening for diabetes mellitus; Gastroesophageal reflux disease without esophagitis; Morbid obesity (CMS/HCC); PCOS (polycystic ovarian syndrome); Anxiety Start: 03-21-2022 End: 03-21-2022 ambulatory ANTHONY GARCIA [facility] Start: 03-07-2022 End: 03-07-2022 ambulatory SIERRA SANTOS [facility] Start: 03-05-2022 AUDIT Sierra ying Work Phone: [facility] Work Phone: Start: 03-03-2022 Documentation procedure Sarah Cleaning TECHNOLOGIST [facility] Start: 03-03-2022 AUDIT Sierra Ivory user Work Phone: [facility] Work Phone: Start: 02-28-2022 End: 02-28-2022 ambulatory ANTHONY YANEZ [facility] Ambulatory Start: 02-28-2022 End: 02-28-2022 Office outpatient visit 15 minutes Anthony Yanez MD Work Phone: [facility] Comment on above: Ganglion cyst (Prima ry Dx) Start: 02-27-2022 End: 02-28-2022 Clinical Support Encounter Shavonne D Suzanna MANUFACTURING INDUSTRIAL ENGINEER-LONGSHORE EQUIPMENT OPERATOR Work Phone: [employer] [facility] Comment on above: Sleep apnea, unspeci fied type (Primary Dx) Start: 02-19-2022 Ad[facility] Anthony Yanez MD Work Phone: [facility] Comment on above: Ganglion cyst (Prima ry Dx) Start: 01-31-2022 AUDIT Sierra Martinezhossein user Work Phone: [facility] Work Phone: Start: 01-24-2022 End: 01-27-2022 Clinical Support Encounter Shavonne D Suzanna MANUFACTURING INDUSTRIAL ENGINEER-LONGSHORE EQUIPMENT OPERATOR Work Phone: [facility] Comment on above: Sleep apnea, unspeci fied type (Primary Dx); Snoring; Overweight; Insomnia, unspecified type; Morning headache; Fatigue, unspecified type; Hypersomnia, unspecified Start: 01-14-2022 End: 01-15-2022 ambulatory [facility] Start: 01-10-2022 ambulatory ANTHONY YANEZ [facility] Ambulatory Start: 12-30-2021 End: 01-03-2022 ambulatory SIERRA SANTOS [facility] Amb[facility] Start: 12-30-2021 End: 12-30-2021 Office outpatient new 30 minutes Cassidy Thomas LONGSHORE EQUIPMENT OPERATOR Work Phone: [facility] Comment on above: Ganglion cyst (Prima ry Dx) Start: 12-24-2021 End: 12-24-2021 Office outpatient new 45 minutes Shavonne Briseno MANUFACTURING INDUSTRIAL ENGINEER-LONGSHORE EQUIPMENT OPERATOR Work Phone: [facility] Comment on above: Sleep apnea, unspeci fied type (Primary Dx); Snoring; Overweight; Insomnia, unspecified type; Morning headache; Fatigue, unspecified type; Hypersomnia, unspecified Start: 12-18-2021 Chart Update Sierra Dodd Oberha user Work Phone: [facility] Work Phone: Start: 12-12-2021 End: 12-12-2021 Emergency department patient visit Vi Ramachandran [facility] Start: 12-05-2021 FUV, Provider: Leoncio Jean Baptiste, Status: Pen, Time: 1:45 PM Sierra Santos Work Phone: [facility] Work Phone: Start: 12-05-2021 Office outpatient vi sit 25 minutes Sierra Santos Work Phone: [address] Work Phone: Start: 12-05-2021 ambulatory MD LEONCIO JEAN BAPTISTE Faci lity:[id number] Start: 12-03-2021 Chart Update Sierra Dodd Oberha user Work Phone: [facility] Work Phone: Start: 11-29-2021 Chart Update Sierra Dodd Oberha user Work Phone: [facility] Work Phone: Start: 11-23-2021 End: 11-23-2021 Emergency department patient visit Prosper Ren[facility] Start: 11-18-2021 End: 11-18-2021 Patient encounter procedure Joshua TapiayD Work Phone: [facility] Comment on above: Binge-eating disorde r, in full remission, mild (Primary Dx) Start: 11-04-2021 Patient encounter procedure Sierra Santos [facility]: Start: 11-03-2021 Chart Update Sierra Ivory user Work Phone: [address] Work Phone: Start: 11-01-2021 Patient encounter procedure Sierra Santos Work Phone: [facility] Work Phone: Start: 11-01-2021 DARLENE, Provider: Gil Grover, Status: Pen, Time: 2:45 PM Sierra Santos Work Phone: [facility] Work Phone: Start: 10-30-2021 Patient encounter procedure Sierra Santos Work Phone: [facility] Work Phone: Start: 10-30-2021 DARLENE, Provider: Gil Grover, Status: Pen, Time: 2:00 PM Sierra Santos Work Phone: [facility] Work Phone: Start: 10-29-2021 Office outpatient vi sit 15 minutes Sierra Santos Work Phone: [facility] Work Phone: Start: 10-25-2021 End: 10-25-2021 Subsequent hospital visit by physician Marcia Currie RD [facility] [place] [facility] Comment on above: Arrived Start: 10-16-2021 AQUATICFU4, Provider : Deborah Russell, Status: Pen, Time: 2:45 PM Sierra Dodd Oberhauser Work Phone: [facility] Work Phone: Start: 10-16-2021 Patient encounter procedure Sierra Dodd Oberhauser Work Phone: [facility] Work Phone: Start: 10-15-2021 Patient encounter procedure Sierra Dodd Oberhauser Work Phone: [facility] Work Phone: Start: 10-04-2021 Patient encounter procedure Sierra Dodd Oberhauser Work Phone: [facility] Work Phone: Start: 09-24-2021 PTTARUN, Provider : Magali Donald, Status: Pen, Time: 2:15 PM Sierra Dodd Oberhauser Work Phone: [facility] Work Phone: Start: 09-23-2021 Chart Update Sierra Dodd Oberha user Work Phone: [facility] Work Phone: Start: 09-03-2021 Office outpatient vi sit 15 minutes Sierraestelita Ordonezerhauser Work Phone: [facility] Work Phone: Start: 05-23-2021 Office outpatient vi sit 15 minutes Sierra L Oberhauser Work Phone: [facility] Work Phone: Start: 03-14-2021 FUV, Provider: Sierra Santos, Status: Pen, Time: 1:00 PM Sierra Dodd Oberhauser Work Phone: [facility] Work Phone: Start: 03-13-2021 Chart Update Sierra Ivory user Work Phone: [facility] Work Phone: Start: 02-28-2021 Current tobacco non- user cad cap copd pv dm Sierra Martinezwood Work Phone: [facility] Work Phone: Start: 01-23-2021 End: 01-23-2021 Subsequent hospital visit by physician Karen Light RD Work Phone: [facility] Comment on above: Arrived Start: 12-28-2020 End: 12-28-2020 Subsequent hospital visit by physician Rajiv Kemp MD Work Phone: [facility] [employer] Comment on above: Arrived Start: 12-28-2020 End: 12-28-2020 Office outpatient new 45 minutes Rajiv Kemp MD Work Phone: [facility] Comment on above: Morbid obesity with body mass index of 50 or higher (Primary Dx); Essential hypertension; Tachycardia; PCOS (polycystic ovarian syndrome); Gastroesophageal reflux disease, unspecified whether esophagitis present; Chronic pain of both hips; Screening for viral disease Start: 11-02-2020 Chart Update Sierra Ivory user Work Phone: [facility] Work Phone: Start: 10-31-2020 Chart Update Sierra Yousif Ivory user Work Phone: [facility] Work Phone: Start: 10-25-2020 Office outpatient ne w 45 minutes Sierra Santos [facility] Work [facility]: Start: 09-11-2020 Patient encounter procedure Sierra Martinezandresnaty [facility] Work Phone: Start: 08-15-2020 Patient encounter procedure Sierra Santos [facility] Work Phone: Start: 07-24-2020 Patient encounter procedure Sierra Oberandreser [facility] Work Phone: Start: 07-18-2020 Patient encounter procedure Sierra Oberandreser [facility] Work Phone: Start: 05-30-2020 Patient encounter procedure Sierra Oberandreser [facility] Work Phone: Start: 05-23-2020 Patient encounter procedure Sierra Oberandreser [facility] Work Phone: Start: 05-16-2020 Patient encounter procedure Sierra Oberandreser [facility] Work Phone: Start: 05-15-2020 Patient encounter procedure Sierra Oberandreser [facility] Work Phone: Start: 05-09-2020 Patient encounter procedure Sierra Oberandreser [facility] Work Phone: Start: 05-02-2020 Patient encounter procedure Sierra Oberandreser [facility] Work Phone: Start: 04-20-2020 Patient encounter procedure Sierra Oberandreser [facility] Work Phone: Start: 04-06-2020 Patient encounter procedure Sierra Oberandreser [facility] Work Phone: Start: 04-03-2020 Patient encounter procedure Sierra Oberandreser [facility] Work Phone: Start: 04-02-2020 Patient encounter procedure Sierra Oberandreser [facility] Work Phone: Start: 03-20-2020 Patient encounter procedure Sierra Oberhauser [facility] Work Phone: Start: 02-29-2020 Patient encounter procedure Sierra Oberhauser [facility] Work Phone: Start: 01-31-2020 Patient encounter procedure Sierra Santos [facility] Work Phone: Start: 01-09-2020 Patient encounter procedure Rosalba Desoto [facility] [address] Work Phone: Start: 12-05-2019 Patient encounter procedure Rosalba Castillo [facility] [address] Work Phone: Start: 11-07-2019 Patient encounter procedure Rosalba Desoto [facility] [address] Work Phone: Start: 07-14-2019 Patient encounter procedure Rosalba Castillo [facility] [address] Work Phone: Start: 06-22-2019 Patient encounter procedure Rosalba Castillo [facility] [address] Work Phone: Start: 06-14-2019 Patient encounter procedure Rosalba Desoto [facility] [address] Work Phone: Start: 05-04-2019 Patient encounter procedure Rosalba Desoto [facility] [address] Work Phone: Start: 04-27-2019 Patient encounter procedure Rosalba Csatillo [facility] [address] Work Phone: Start: 04-22-2019 Patient encounter procedure Rosalba Desoto [facility] [address] Work Phone: Start: 04-15-2019 Patient encounter procedure Rosalba Desoto [facility] [address] Work Phone: Start: 03-30-2019 Patient encounter procedure Rosalba Castillo [facility] [address] Work Phone: Start: 03-15-2019 Patient encounter procedure Rosalba Desoto [facility] [address] Work Phone: Menarche Sierra Santos DO [facility] [address] Work Phone: Comment on above: ONSET AGE 11; Patient encounter procedure Sierra Santos Work Phone: [facility] Work Phone: End: 12-09-2022 Patient encounter procedure Sierra Santos Work Phone: [facility] [address] [address] Work Phone: Comment on above: 12/01/2022:Negative0 12/05/2019-NIL02/24/2017-NEGATIVE; Preoperative state Sierra Harp auser Work Phone: [id number] [address] Work Phone: Procedures Date Procedure Procedure Detail Performing Clinician Start: 12-15-2024 End: 12-15-2024 Bacterial nucleic acid assay No Primary Care Physician Start: 10-26-2024 Parvovirus B19 IgG level DEFINED [...] HCV Quant by PCR testing - HCVPCR #[id number] Non Reactive: < 0.8 Equivocal: >/= 0.8 [...] OT Start: 03-09-2024 Follow-up visit Follow-up SIERRA Yousif JUANANDRESNATY Start: 12-08-2023 Microscopic observat ion [Identifier] in Cervix by Cyto stain Sierra Danielle DO Work Phone: Start: 08-05-2023 HEPATITIS B SURFACE ANTIBODY SIERRA DANIELLE Start: 08-05-2023 T-SPOT TB SIERRA CATALANUSER Start: 03-12-2023 Basic metabolic pane l calcium total Jimena Gracia DO Work Phone: Start: 03-12-2023 Complete blood count with white cell differential, automated Jimena Gracia DO Work Phone: Start: 03-11-2023 Basic metabolic pane l calcium total Jimena Gracia DO Work Phone: Start: 03-11-2023 End: 03-11-2023 Laps gstrc rstrictiv px longitudinal gastrectomy Jimena Gracia DO Work Phone: Start: 03-11-2023 Basic metabolic pane l calcium total Jimena Gracia DO Work Phone: Start: 03-11-2023 Blood group typing, RH phenotyping Santi Yousif Ricmateusz DO Work Phone: Start: 03-11-2023 Urine test visual color cmprsn meths Jimena Gracia DO Work Phone: Start: 02-03-2023 Follow-up visit Follow-up SHAVONNE D SUZANNA Start: 12-01-2022 Microscopic observat ion [Identifier] in Cervix by Cyto stain Sierra Danielle DO Work Phone: Start: 11-17-2022 Radiologic exam [...] MD Work Phone: Start: 10-30-2020 Colonoscopy Sierra norton Work Phone: Start: 01-09-2020 Quadcheck-Triple Portia ck With Inhibin Rosalba Castillo Start: 01-09-2020 Ultrasound Ob Complete Rosalba Desoto Start: 12-05-2019 Microscopic observat ion [Identifier] in Cervix by Cyto stain.thin prep Rosalba Castillo Start: 11-07-2019 Antibody hiv-1 Rosalba Ad air Start: 11-07-2019 Antibody rubella Rosalba Desoto Start: 11-07-2019 Creatinine other source Rosalba Castillo Start: 11-07-2019 Hemoglobin glycosyla valdez a1c Rosalba Castillo Start: 11-07-2019 Hepatitis c antibody Br ett Castillo Start: 11-07-2019 Iaad ia hepatitis b surface antigen Rosalba Castillo Start: 11-07-2019 Protein total xcpt refractometry urine Rosalba Desoto Start: 11-07-2019 SYPHILIS SCREENING W ITH REFLEX Rosalba Desoto Start: 03-01-2018 Excision of uterine polyp Sierra Santos Work Phone: Start: 03-01-2018 Hysteroscopy Sierra norton Work Phone: Comment on above: D&C; Colonoscopy Sierra L Oberhau ser Work Phone: End: 03-01-2018 Excision of uterine polyp Rosalba Castillo Extraction of wisdom tooth B rett Castillo End: 03-01-2018 Hysteroscopy Rosalba Thomas Operative procedure on wrist Rosalba Castillo Comment on above: TENDON REPAIR; Plan of Treatment Date Care Activity Detail Author Start: 2056 RSV Immunization age d 60 or older (1 - 1-dose 60+ series) RSV Immunization aged 60 or older (1 - 1-dose 60+ series) [facility] Start: 02-03-2046 Zoster Vaccines (1 of 2) Zoste r Vaccines (1 of 2) [facility] Start: 12-16-2032 DTaP/Tdap/Td Vaccine s (7 - Td or Tdap) DTaP/Tdap/Td Vaccines (7 - Td or Tdap) [facility] Start: 12-16-2032 Tetanus vaccination TETANUS [place] Start: 12-07-2026 Screening for malign ant neoplasm of cervix [facility] Start: 12-01-2025 Screening for malign ant neoplasm of cervix [facility] Start: 12-15-2024 Group B Streptococcu s Culture Group B Streptococcus Culture [facility] Start: 12-15-2024 Bacterial nucleic ac id assay [facility] Start: 12-15-2024 Patient discharge [facility] Start: 12-12-2024 End: 12-12-2024 Patient encounter procedure 12/12/2024 3:30 PM EDT Office Visit [facility] Medical Office Building [address] [place] [address] Jacquelyn Walker MD [facility] [address] [facility], [facility] [address] [place] [address] [facility] Start: 12-08-2024 Yearly Adult Physical Yearly Adult P hycal [facility] Start: 11-10-2024 Iv infusion therapy prophylaxis/dx ea hour THER/PROPH/DIAG IV INF ADDON [facility] Start: 11-10-2024 Iv infusion therapy/prophylaxis /dx 1st to 1 hr THER/PROPH/DIAG IV INF INIT [facility] Start: 10-26-2024 Cobalamin (Vitamin B 12) [Mass/volume] in Serum or Plasma [facility] Start: 10-26-2024 Ferritin [Mass/volum e] in Serum or Plasma [facility] Start: 10-26-2024 Iron and Iron bindin g capacity panel - Serum or Plasma [facility] Start: 08-29-2024 Source specific culture [facility] Start: 08-29-2024 Nonstress test [facility] Start: 08-29-2024 Obstetric monitoring [facility] Start: 08-29-2024 [facility] Start: 08-29-2024 Vital signs measurements [facility] Start: 08-29-2024 Patient discharge [facility] Start: 06-14-2024 End: 06-14-2024 Patient encounter procedure 06/14/2024 12:40 PM EST Office Visit [facility] [address] [place] [id number] Sierra Santos DO [address] [place] [address] [place] [address] [facility] Start: 02-11-2024 Diabetes mellitus screening Diabetes Screening [facility] Start: 02-11-2024 Hemoglobin A1c measurement Benji betes: Hemoglobin A1C [facility] Start: 2024 End: 2024 Telemedicine consultation with patient 2024 9:20 AM EDT Telemedicine [facility] [address] [place] [address] Sierra Santos DO [address] [place] [address] [facility] Start: 01-31-2024 COVID-19 Vaccine ( season) COVID-19 Vaccine ( season) [facility] Start: 01-31-2024 Influenza vaccination Influenza Vacc ine (#1) [facility] Start: 12-08-2023 Patient encounter procedure ANNUAL, Provider: Jacquelyn Walker, Status: Pen, Time: 3:[address] Work Phone: Start: 12-08-2023 End: 12-08-2023 Patient encounter procedure 12/08/2023 3:30 PM EDT Office Visit [facility] Medical Office Building [address] [place] [id number] Jacquelyn Walker MD [address] [facility] Medical Office, [address] [place] [address] [facility] Start: 11-18-2023 Hemoglobin A1c measurement Benji betes: Hemoglobin A1C [facility] Start: 04-09-2023 End: 04-09-2023 Patient encounter procedure 04/09/2023 2:00 PM EST Office Visit [facility] [address] [place] [address] Jimena Gracia, DO [address] [place] [address] [facility] Start: 03-24-2023 End: 03-24-2023 Patient encounter procedure 03/24/2023 10:15 AM EDT Office Visit [facility] [address] [place] [address] Jimena Gracia, DO [address] [place] [address] [facility] Start: 03-11-2023 End: 03-11-2023 Admission to same day surgery center 03/11/2023 12:30 PM EDT - 03/11/2023 3:00 PM EDT Surgery [facility] [address] [place] [address] Jimena Gracia, DO [address] [place] [address] GASTRECTOMY LONGITUDINAL (SLEEVE) ROBOTIC *1st ASST* [facility] Comment on above: GASTRECTOMY LONGITUD INAL (SLEEVE) ROBOTIC *1st ASST* Start: 03-11-2023 End: 03-11-2023 Laps gstrc rstrictiv px longitudinal gastrectomy GASTRECTOMY LONGITUDINAL (SLEEVE) ROBOTIC Morbid obesity with body mass index of 50 or higher Essential hypertension 03/11/2023 12:30 PM EDT [facility] Start: 03-11-2023 Subsequent hospital visit by physician 03/11/2023 12:30 PM EDT Hospital Encounter [facility] [address] [place] [address] Jimena Gracia E, DO [address] [place] [address] Morbid obesity with body mass index of 50 or higher [facility] Comment on above: Morbid obesity with body mass index of 50 or higher Start: 02-24-2023 End: 02-24-2023 Admission to establishment 02/24/2023 9:00 AM EDT Pre-Operative Nurse Assessment [facility] Pre Admission [address] [place] [address] [facility]mission Start: 02-19-2023 End: 02-20-2024 aPTT in Blood by Coagulation assay PTT Lab Routine Morbid obesity with body mass index of 50 or higher Essential hypertension Expected: 02/19/2023, Expires: 02/20/2024 [facility] Comment on above: Expected: 02/19/2023 , Expires: 02/20/2024 Start: 02-19-2023 End: 02-20-2024 Basic metabolic 2000 panel - Serum or Plasma BASIC METABOLIC PANEL Lab Routine Morbid obesity with body mass index of 50 or higher Essential hypertension Expected: 02/19/2023, Expires: 02/20/2024 [facility] Comment on above: Expected: 02/19/2023 , Expires: 02/20/2024 Start: 02-19-2023 End: 02-20-2024 CBC,PLATELETS CBC,PLATELETS Lab Routine Morbid obesity with body mass index of 50 or higher Essential hypertension Expected: 02/19/2023, Expires: 02/20/2024 [facility] Comment on above: Expected: 02/19/2023 , Expires: 02/20/2024 Start: 02-19-2023 End: 02-20-2024 Choriogonadotropin ( test) [Presence] in Urine HCG QUALITATIVE, URINE Fluids Routine Morbid obesity with body mass index of 50 or higher Essential hypertension Expected: 02/19/2023, Expires: 02/20/2024 [facility] Comment on above: Expected: 02/19/2023 , Expires: 02/20/2024 Start: 02-19-2023 End: 02-20-2024 PROTIME-INR PROTIME-INR Lab Routine Morbid obesity with body mass index of 50 or higher Essential hypertension Expected: 02/19/2023, Expires: 02/20/2024 [facility] Comment on above: Expected: 02/19/2023 , Expires: 02/20/2024 Start: 02-19-2023 End: 02-20-2024 TYPE AND SCREEN - POSSIBLE TRANSFUSION TYPE AND SCREEN - POSSIBLE TRANSFUSION Blood Bank Routine Morbid obesity with body mass index of 50 or higher Essential hypertension Expected: 02/19/2023, Expires: 02/20/2024 [facility] Comment on above: Expected: 02/19/2023 , Expires: 02/20/2024 Start: 01-30-2023 COVID-19 VACCINE ( season) COVID-19 VACCINE ( season) [facility] Start: 01-30-2023 Influenza vaccination [facility] Start: 12-10-2022 End: 12-10-2022 Telemedicine consultation with patient [facility] Radha Quinones Start: 10-31-2022 Patient encounter procedure [facility] Start: 09-25-2022 End: 09-26-2023 CBC W Auto Differential panel - Blood CBC and Auto Differential Lab Routine Other fatigue Expected: 09/25/2022 (Approximate), Expires: 09/26/2023 [facility] Work Phone: Comment on above: Expected: 09/25/2022 (Approximate), Expires: 09/26/2023 Start: 09-25-2022 End: 09-26-2023 Cobalamin (Vitamin B12) [Mass/volume] in Serum or Plasma Vitamin B12 Lab Routine Other fatigue Expected: 09/25/2022 (Approximate), Expires: 09/26/2023 [facility] Work Phone: Comment on above: Expected: 09/25/2022 (Approximate), Expires: 09/26/2023 Start: 09-25-2022 End: 09-26-2023 Comprehensive metabolic 2000 panel - Serum or Plasma Comprehensive Metabolic Panel Lab Routine Other fatigue Expected: 09/25/2022 (Approximate), Expires: 09/26/2023 [facility] Work Phone: Comment on above: Expected: 09/25/2022 (Approximate), Expires: 09/26/2023 Start: 09-25-2022 End: 09-26-2023 Hemoglobin A1c/Hemoglobin.total in Blood Hemoglobin A1C Lab Routine Screening for diabetes mellitus Expected: 09/25/2022 (Approximate), Expires: 09/26/2023 [facility] Work Phone: Comment on above: Expected: 09/25/2022 (Approximate), Expires: 09/26/2023 Start: 09-25-2022 End: 09-26-2023 TSH with reflex to Free T4 if abnormal TSH with reflex to Free T4 if abnormal Lab Routine Hair loss Expected: 09/25/2022 (Approximate), Expires: 09/26/2023 [facility] Service Area Work Phone: Comment on above: Expected: 09/25/2022 (Approximate), Expires: 09/26/2023 Start: 04-10-2022 End: 04-10-2022 Patient encounter procedure 04/10/2022 Office Visit Pulmonary Disease Shavonne Briseno, 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 Start: 03-21-2022 End: 03-21-2022 Follow-up encounter 03/21/2022 Follow-Up Sports Medicine Anthony Yanez MD [address] [place] [id number] [facility] Physicians Start: 03-07-2022 End: 03-07-2022 Admission to same day surgery center 03/07/2022 Surgery Anthony Yanez MD [address] [facility] [place] [address] Right wrist ganglion cyst removal [facility] Per[facility] Comment on above: Right wrist ganglion cyst removal Start: 03-07-2022 End: 03-07-2022 GANGLIONECTOMY UPPER EXTREMITY GANGLIONECTOMY UPPER EXTREMITY Ganglion cyst 03/07/2022 9:02 AM EDT [facility] Main OR Start: 03-07-2022 Subsequent hospital visit by physician 03/07/2022 Hospital Encounter Anthony Yanez MD [address] [place] [address] [facility] Per[facility] Start: 02-28-2022 End: 02-28-2022 Patient encounter procedure 02/28/2022 Surgical Consult Sports Medicine Anthony Yanez MD [address] [place] [address] [facility] Start: 02-01-2022 End: 02-02-2022 Clinical Support Encounter 02/01/2022 Clinical Support Encounter Sleep Medicine [facility] Start: 01-30-2022 End: 01-30-2022 Patient encounter procedure 01/30/2022 Office Visit Pulmonary Disease Shavonne Briseno, 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 Start: 01-30-2022 Influenza vaccination [facility] Start: 01-09-2022 End: 01-09-2022 Patient encounter procedure 01/09/2022 Office Visit General Surgery Jimena Gracia, DO [address] [place] [address] [facility] Start: 12-18-2021 Patient encounter procedure [facility] Start: 12-05-2021 FUV, Provider: Leoncio Jean Baptiste, Status: Aurelio, Time: 1:45 PM FUV, Provider: Leoncio Jean Baptiste, Status: Aurelio, Time: 1:45 PM [facility] Work Phone: Start: 12-05-2021 Patient encounter procedure [facility] Cardiology Yazidi Start: 11-23-2021 End: 11-24-2022 Sodium Chloride 0.9% Injectable Flush Peripheral Line ; via Peripheral LineVolume = 10 mL IntraVenous Flush Every 8 Hours and as Needed Start: 23-Nov-2021 End: 23-Nov-2022 Ordered: 23-Nov-2021 Prosper Renner [facility] Start: 11-22-2021 FUV, Provider: Sierra Santos, Status: Aurelio, Time: 11:40 AM FUV, Provider: Sierra Santos, Status: Aurelio, Time: 11:40 AM [facility] Work Phone: Start: 11-18-2021 End: 11-18-2021 Patient encounter procedure 11/18/2021 Office Visit Psychology Joshua Akers, PsyD [address] [place] [address] [facility] Psychology Start: 11-12-2021 End: 11-12-2021 Patient encounter procedure 11/12/2021 Office Visit Pulmonary Disease Shavonne Briseno, 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 Start: 11-08-2021 PTRECHGLENN, Provider : Gil Grover, Status: Aurelio, Time: 2:45 PM DRU, Provider: Gil Grover, Status: Aurelio, Time: 2:45 PM [facility] Work Phone: Start: 11-06-2021 DRYNDL, Provider: Gil Grover, Status: Pen, Time: 3:15 PM DRYNDL, Provider: Gil Grover, Status: Pen, Time: 3:15 PM [facility] Work Phone: Start: 11-01-2021 DRYNDL, Provider: Gil Grover, Status: Pen, Time: 2:45 PM DRYNDL, Provider: Gil Grover, Status: Pen, Time: 2:45 PM [facility] Work Phone: Start: 11-01-2021 DRYNDL, Provider: Gil Grover, Status: Pen, Time: 2:30 PM DRYNDL, Provider: Gil Grover, Status: Pen, Time: 2:30 PM [facility] Work Phone: Start: 10-30-2021 Patient encounter procedure ANNUAL, Provider: Rosalba Thomas, Status: Pen, Time: 3:00 PM [facility] Work Phone: Start: 10-30-2021 DRYNDL, Provider: Gil Grover, Status: Pen, Time: 2:00 PM DRYNDL, Provider: Gil Grover, Status: Pen, Time: 2:00 PM [facility] Work Phone: Start: 10-29-2021 FUV, Provider: Sierra Santos, Status: Pen, Time: 2:40 PM FUV, Provider: Sierra Santos, Status: Pen, Time: 2:40 PM [facility] Work Phone: Start: 10-25-2021 AQUATICFU4, Provider : Deborah Russell, Status: Pen, Time: 2:45 PM AQUATICFU4, Provider: Deborah Russell, Status: Pen, Time: 2:45 PM [facility] Work Phone: Start: 10-25-2021 End: 10-25-2021 Patient encounter procedure 10/25/2021 Appointment Nutrition and Dietetics Marcia Currie, RD [address] [place] [address] [facility] Nutrition and Dietetics Start: 10-23-2021 AQUATICFU4, Provider : Deborah Russell, Status: Pen, Time: 2:45 PM AQUATICFU4, Provider: Deborah Russell, Status: Pen, Time: 2:45 PM [facility] Work Phone: Start: 10-08-2021 FUV, Provider: Sierra Santos, Status: Pen, Time: 4:40 PM FUV, Provider: Sierra Santos, Status: Pen, Time: 4:40 PM [facility] Work Phone: Start: 10-03-2021 FUV, Provider: Leoncio Jean Baptiste, Status: Pen, Time: 1:00 PM FUV, Provider: Leoncio Jean Baptiste, Status: Pen, Time: 1:[address] [facility] Work Phone: Start: 09-16-2021 Patient encounter procedure ANNUAL, Provider: Rosalba Thomas, Status: Pen, Time: 9:45 AM [facility] Work Phone: Start: 07-23-2021 FUV, Provider: Markos Polanco, Status: Pen, Time: 10:00 AM FUV, Provider: Markos Polanco, Status: Pen, Time: 10:00 AM [facility] [address] Work Phone: Start: 07-23-2021 FUV, Provider: Markos Contreras, Status: Pen, Time: 10:00 AM FUV, Provider: Markos oCntreras, Status: Pen, Time: 10:00 AM [facility] Primary [facility] Work Phone: Start: 07-13-2021 COVID-19 VACCINE (3 - Booster for Pfizer series) COVID-19 VACCINE (3 - Booster for Pfizer series) [facility] Start: 05-06-2021 End: 05-06-2021 Patient encounter procedure 05/06/2021 Appointment Nutrition and Dietetics Karen Light, BRODY [address] [place] [address] [facility] Nutrition and Dietetics Start: 04-22-2021 FUV, Provider: Markos Polanco, Status: Pen, Time: 1:15 PM FUV, Provider: Markos Polanco, Status: Pen, Time: 1:15 PM [facility] Work Phone: Start: 04-16-2021 End: 04-16-2021 Patient encounter procedure 04/16/2021 Appointment Nutrition and Dietetics Karen Light, BRODY [address] [place] [address] [facility] Nutrition and Dietetics Start: 04-07-2021 COVID-19 VACCINE (3 - Booster for Pfizer series) COVID-19 VACCINE (3 - Booster for Pfizer series) [facility] Start: 04-07-2021 COVID-19 VACCINE (3 - Pfizer series) COVID-19 VACCINE (3 - Pfizer series) [facility] Start: 03-21-2021 End: 03-21-2021 Admission to same day surgery center 03/21/2021 Surgery Endoscopy Rajiv Kemp MD [address] [place] [id number] EGD W/ BX [facility] Comment on above: EGD W/ BX Start: 03-21-2021 End: 03-21-2021 Egd transoral biopsy single/multiple EGD W/ BX GERD (gastroesophageal reflux disease) 03/21/2021 7:30 AM EDT [facility] END[facility] Start: 03-21-2021 Subsequent hospital visit by physician 03/21/2021 Hospital Encounter Endoscopy Rajiv Kemp MD [address] [place] [address], [place] [address] GERD (gastroesophageal reflux disease) [facility] Comment on above: GERD (gastroesophage al reflux disease) Start: 03-14-2021 FUV, Provider: Sierra Santos, Status: Pen, Time: 1:00 PM FUV, Provider: Sierra Santos, Status: Pen, Time: 1:00 PM [facility] Work Phone: Start: 03-14-2021 End: 03-14-2021 Patient encounter procedure 03/14/2021 Appointment Nutrition and Dietetics Karen Light, RD [address] [place] [address] [facility] Nutrition and Dietetics Start: 02-18-2021 End: 02-18-2021 Patient encounter procedure 02/18/2021 Appointment Nutrition and Dietetics Karen Light, BRODY [address] [place] [address] [facility] Nutrition [facility] Dietetics Start: 01-30-2021 Influenza vaccination INFLUENZA VACC INE (#1) [facility] Start: 01-25-2021 End: 01-25-2021 Patient encounter procedure 01/25/2021 Office Visit Psychology Joshua Akers, PsyD [address] [place] [id number] [facility] Psychology Start: 01-23-2021 End: 01-23-2021 Patient encounter procedure 01/23/2021 Appointment Nutrition and Dietetics Karen Light, RD [address] [place] [address] [facility] Nutrition and Dietetics Start: 12-28-2020 End: 12-28-2021 NOVEL CORONAVIRUS LAB 1 - NASOPHARYNGEAL NOVEL CORONAVIRUS LAB 1 - NASOPHARYNGEAL Microbiology STAT Screening for viral disease Expected: 12/28/2020, Expires: 12/28/2021 [facility] Work Phone: Comment on above: Expected: 12/28/2020 , Expires: 12/28/2021 Start: 12-04-2020 FUV, Provider: Sierra Santos, Status: Pen, Time: 3:40 PM FUV, Provider: Sierra Santos, Status: Pen, Time: 3:40 PM [facility] [place] [address] Work Phone: Start: 07-05-2020 Varicella vaccination Varicell a Vaccines (1 of 2 - 2-dose childhood series) [facility] Start: 01-31-2020 [facility]ound [facility] [address] Work Phone: Start: 02-03-2018 DTaP/Tdap/Td Vaccine s (1 - Tdap) DTaP/Tdap/Td Vaccines (1 - Tdap) [facility] Start: 02-03-2017 Screening for malign ant neoplasm of cervix [facility] Start: 02-03-2015 DTaP/Tdap/Td Vaccine s (1 - Tdap) DTaP/Tdap/Td Vaccines (1 - Tdap) [facility] Start: 02-03-2015 Third diphtheria, te tanus and acellular pertussis (DTaP) vaccination TDAP (ADULT) [facility] Start: 02-03-2014 Hepatitis C screening Hepatitis C Sc reening [facility] Start: 02-03-2014 Tetanus vaccination TETANUS [place] Start: 2012 Screening for Chlamy benji trachomatis CHLAMYDIA SCREEN [facility] Start: 02-03-2011 HIV screening [facility] Start: 2008 COVID-19 VACCINE (1) COVID-19 VACCIN E (1) [facility] Start: 2008 Depression screening using PHQ-9 (Patient Health Questionnaire 9) score [facility] Start: 07-01-2007 HPV Vaccines (2 - 2- dose series) HPV Vaccines (2 - 2-dose series) [facility] Start: 02-03-2007 HPV Vaccines (1 - 2- dose series) HPV Vaccines (1 - 2-dose series) [facility] Start: 02-03-2007 Vaccination for cecy n papillomavirus [facility] Start: 02-03-1999 History and physical examination, annual for health maintenance Wellness Visit [facility] Start: 02-03-1997 Hepatitis A Vaccines (1 of 2 - Risk 2-dose series) Hepatitis A Vaccines (1 of 2 - Risk 2-dose series) [facility] Start: 02-03-1997 MMR Vaccines (1 of 1 - Standard series) MMR Vaccines (1 of 1 - Standard series) [facility] Start: 02-03-1997 Varicella vaccination Varicell a Vaccines (1 of 2 - 2-dose childhood series) [facility] Start: 1996 COVID-19 Vaccine (#1) COVID-19 Vacci ne (#1) [facility] Start: 1996 GONORRHEA SCREEN GONORRHEA SCREEN Av [facility] Start: 1996 Hepatitis B Vaccines (1 of 3 - 3-dose series) Hepatitis B Vaccines (1 of 3 - 3-dose series) [facility] Start: 1996 Hepatitis C antibody , confirmatory test HEPATITIS C VIRUS SCREENING [facility] Start: 1996 Hepatitis C screening HEPATITI S C VIRUS SCREENING [facility] Start: 1996 HIV screening [facility] Start: 1996 Lipid panel Lipid Panel [facility] Start: 1996 Screening for Chlamy benji trachomatis GONORRHEA SCREEN [facility] Start: 1996 Screening for malign ant neoplasm of cervix Pap Smear [facility] Start: 1996 [facility] Start: [facility] Yearly Adult Physical Yearly Adult P hycal [facility] Bacterial nucleic ac id assay [facility] Beta-hemolytic Streptococcus culture [facility] CBC W Auto Different ial panel - Blood [facility] Cytology Cervical or vaginal smear or scraping study THINPREP PAP TEST Pathology and Cytology Routine Encounter for gynecological examination without abnormal finding Encounter for screening for cervical cancer 12/08/2023 3:42 PM EDT [facility] Service Area Work Phone: Egd transoral biopsy single/multiple EGD W/ BX GERD (gastroesophageal reflux disease) [facility] GANGLIONECTOMY UPPER EXTREMITY GANGLIONECTOMY UPPER EXTREMITY Ganglion cyst [facility] Main OR H/O: surgery [facility] History of colonoscopy History of colonos copy [facility] Iron [Mass/mass] in Unspecified specimen [facility] Iron saturation [Mas s Fraction] in Serum or Plasma [facility] Microscopic urinalysis [facility] End: 12-30-2022 MR Wrist Right Without Contrast MR Wrist Right Without Contrast Imaging Routine Ganglion cyst 1 Occurrences starting 12/30/2021 until 12/30/2022 [facility] Work Phone: Comment on above: 1 Occurrences starti ng 12/30/2021 until 12/30/2022 Organism count, microscopic method [facility] Parvovirus B19 IgG A b [Units/volume] in Serum by Immunoassay [facility] Parvovirus B19 IgM A b [Units/volume] in Serum by Immunoassay [facility] Past history of procedure History of hyst eroscopy [facility] Patient Education [facility] Work Phone: Patient referral [facility] Work Phone: Polysomnography SLEEP STUDY - DIAGNOSTIC PFT Routine Sleep apnea, unspecified type Snoring Overweight Insomnia, unspecified type Morning headache Fatigue, unspecified type Hypersomnia, unspecified Ordered: 12/24/2021 [employer] Comment on above: Ordered: 12/24/2021 SLEEP STUDY - TITRATION SLEEP ST UDY - TITRATION PFT Routine Sleep apnea, unspecified type Snoring Overweight Insomnia, unspecified type Morning headache Fatigue, unspecified type Hypersomnia, unspecified Ordered: 12/24/2021 [employer] Comment on above: Ordered: 12/24/2021 SURGICAL PATHOLOGY REQUEST SURGI MARVIN PATHOLOGY REQUEST Surg Path Routine Morbid obesity with body mass index of 50 or higher Essential hypertension Release Upon Ordering for 1 Occurrences starting 03/11/2023 [employer] Comment on above: Release Upon Orderin g for 1 Occurrences starting 03/11/2023 Total iron binding capacity measurement [facility] Urine microscopy: epithelial cells [facility] Urine microscopy: re d cells [facility] VITAMIN B1 VITAMIN B1 Lab R outine Essential hypertension Tachycardia Morbid obesity with body mass index of 50 or higher PCOS (polycystic ovarian syndrome) Gastroesophageal reflux disease, unspecified whether esophagitis present Chronic pain of both hips 12/28/2020 10:01 AM EDT [employer] White blood cell count [facility] Cushing teeth extracted Cushing teeth extra cted [facility] ZINC, SERUM ZINC, SERUM Lab Routine Essential hypertension Tachycardia Morbid obesity with body mass index of 50 or higher PCOS (polycystic ovarian syndrome) Gastroesophageal reflux disease, unspecified whether esophagitis present Chronic pain of both hips 12/28/2020 10:07 AM EDT [facility] [address] Work Phone: [facility] NEGATED: Highlighted row has been ruled out! Planned Goals not documented [address] Work Phone: Immunizations Immunization Date Immunization Notes Care Provider Fa [facility] 10-26-2024 tetanus toxoid, reduced diphtheria toxoid, and acellular pertussis vaccine, adsorbed DEFINED NOT [facility] 06-27-2023 influenza virus vaccine, unspecified formulation Jacquelyn Walker MD Work Phone: [facility] Work Phone: 06-07-2020 measles, mumps and rubella virus vaccine Sierra Santos Work Phone: [facility] Work Phone: 05-17-2009 influenza virus vaccine, unspecified formulation Jimena Gracia DO Work Phone: [facility] 12-29-2006 HPV, unspecified formulation Sierra Santos DO Work Phone: [facility] Work Phone: Payers Date Payer Category Payer Self-pay 2021 Medicaid [employer] [facility] MEDICA[facility] [employer] [id number] 2021-Present [phone] [address] [place] [address] [id number] 2020 Unknown [facility] [id number] 2020-Present [address] [place] [address] [id number]. [id number] 2019 Medicaid [id number] 2019 Unknown 2019 Unknown [id number] 1996 Unknown [id number] 2.16.840.1.292154.3.579.2.903 1996 Unknown [id number] 2.16.840.1.296661.3.579.2.903 1996 Unknown [id number] 2.16.840.1.508850.3.579.2.903 1996 Unknown [id number] 2.16.840.1.136591.3.579.2.90 1996 Unknown [id number] 2.16.840.1.772624.3.579.2.90 1996 Unknown [id number] 2.16.840.1.857280.3.579.2.90 1996 Unknown [id number] 2.16.840.1.642575.3.579.2.90 1996 Unknown [id number] 2.16.840.1.267016.3.579.2.356 1996 Unknown [id number] 2.16.840.1.563253.3.579.2.356 1996 Unknown [id number] 2.16.840.1.902368.3.579.2.356 1996 Unknown [id number] 2.16.840.1.973224.3.579.2.356 1996 Unknown [id number] 2.16.840.1.327710.3.579.2.983 1996 Unknown [id number] 2.16.840.1.960093.3.579.2.983 1996 Unknown [id number] 2.16.840.1.534027.3.579.2.983 1996 Unknown [id number] 2.16.840.1.300219.3.579.2.983 1996 Unknown [id number] 2.16.840.1.883651.3.579.2.983 1996 Unknown [id number] 2.16.840.1.020979.3.579.2.983 1996 Unknown [id number] 2.16.840.1.036341.3.579.2.983 1996 Unknown [id number] 2.16.840.1.408158.3.579.2. 1996 Unknown [id number] 2.16.840.1.964265.3.579.2.98 1996 Unknown [id number] 2.16.840.1.117508.3.579.2.98 1996 Unknown [id number] 2.16.840.1.214873.3.579.2.98 1996 Unknown [id number] 2.16.840.1.246216.3.579.2. 1996 Unknown [id number] 2.16.840.1.588836.3.579.2. 1996 Unknown [id number] 2.16.840.1.417540.3.579.2.1244 1996 Unknown [id number] 2.16.840.1.396163.3.579.2.1244 1996 Unknown [id number] 2.16.840.1.476168.3.579.2.1244 1996 Unknown [id number] 2.16.840.1.669219.3.579.2.1244 1996 Unknown [id number] 2.16.840.1.821128.3.579.2.1242 1996 Unknown [id number] 2.16.840.1.816948.3.579.2.1243 1996 Unknown [id number] 2.16.840.1.161084.3.579.2.1243 1996 Unknown [id number] 2.16.840.1.360632.3.579.2.1243 1996 Unknown [id number] 2.16.840.1.957231.3.579.2.1244 1996 Unknown [id number] 2.840.1.190119.3.579.2.479 1996 Unknown [id number] 2.16.840.1.007826.3.579.2.479 1996 Unknown [id number] 2.840.1.198018.3.579.2.479 1996 Unknown [id number] 2.840.1.175377.3.579.2.479 1996 Unknown [id number] .840.1.997573.3.579.2.479 Unknown [id number] 2.840.1.512807.3.579.2.462 Unknown [id number] .840.1.921589.3.579.2.462 Unknown [id number] .840.1.216001.3.579.2.462 Unknown [id number] .840.1.128330.3.579.2.462 Unknown [id number] .840.1.352023.3.579.2.462 Unknown [id number] .840.1.427088.3.579.2.462 Unknown [id number] .840.1.189936.3.579.2.462 Unknown [id number] .840.1.712936.3.579.2.462 Unknown [id number] .840.1.302571.3.579.2.462 Unknown [id number] 2.840.1.232600.3.579.2.462 Unknown [id number] 2.840.1.913110.3.579.2.462 Unknown [id number] 2.840.1.765752.3.579.2.462 Unknown [id number] 2.16.840.1.840303.3.579.2.462 Unknown [id number] 2.16.840.1.927230.3.579.2.462 Unknown [id number] 2.16.840.1.746571.3.579.2.462 Unknown [id number] 2.16.840.1.196498.3.579.2.462 Unknown [id number] 2.16.840.1.762684.3.579.2.462 Unknown [id number] 2.16.840.1.206076.3.579.2.462 Unknown [id number] 2.16.840.1.260543.3.579.2.462 Unknown [id number] 2.16.840.1.336309.3.579.2.462 Unknown [id number] 2.16.840.1.493967.3.579.2.462 Unknown [id number] 2.16.840.1.952000.3.579.2.462 Unknown [id number] 2.16.840.1.756806.3.579.2.462 Unknown [id number] 2.16.840.1.267187.3.579.2.462 Social History Date Type Detail Facility Start: 10-30-2022 End: 12-08-2023 Never smoker Never smoker [facility] Start: 12-28-2020 End: 02-19-2023 Tobacco smoking status KSIS Former smoker [facility] Start: 12-28-2020 End: 09-25-2022 Tobacco use and exposure Never used [facility] Start: 12-28-2020 End: 04-09-2023 Alcohol intake Current drinker of alcohol (finding) [facility] Start: 12-28-2020 Alcohol Comment social [facility] Start: 1995 Sex Assigned At Not on file [facility] Tobacco smoking consumption unknown [facility] Start: 12-30-2021 End: 06-09-2024 Tobacco smoking status NHIS Never smoked tobacco [facility] Start: 12-30-2021 End: 03-01-2022 Alcohol intake Ex-drinker (finding) [facility] Start: 12-20-2021 End: 03-09-2024 Exposure to SARS-CoV-2 (event) Not sure [facility] Start: 10-30-2022 End: 12-08-2023 Gender identity Not on file [facility] History of tobacco use Current smoker [facility] Start: 12-08-2023 End: 03-09-2024 Alcoholic beverage intake Lifetime non-drinker (finding) [facility] Work Phone: Start: 11-16-2023 End: 11-26-2023 Exposure to SARS-CoV-2 (event) Unable to assess [facility] Start: 08-18-2024 End: 08-29-2024 Sex Female (finding) [facility] Start: 1995 Sex Assigned At Female [facility] NEGATED: Highlighted row - - [facility] [address] Work Phone: Medical Equipment Procedure Code Equipment Code Equipment Origin al Text Equipment Identifier Dates Blood Sugar Diagnostic (Accutrend Glucose Test Strips) strip Start: 10-26-2024 Lancets (Acti-La nce Lancets) 23 gauge [facility] Start: 10-26-2024 Blood Sugar Diagnostic (Accutrend Glucose Test Strips) strip Start: 10-26-2024 Lancets (Acti-La nce Lancets) 23 gauge [facility] Start: 10-26-2024 Blood Sugar Diagnostic (Accutrend Glucose Test Strips) strip Start: 10-26-2024 Lancets (Acti-La nce Lancets) 23 gauge [facility] Start: 10-26-2024 Blood Sugar Diagnostic (Accutrend Glucose Test Strips) strip Start: 10-26-2024 Lancets (Acti-La nce Lancets) 23 gauge [facility] [place] Start: 10-26-2024 Blood Sugar Diagnostic (Accutrend Glucose Test Strips) strip Start: 10-26-2024 Lancets (Acti-La nce Lancets) 23 gauge [facility] [place] Start: 10-26-2024 Blood Sugar Diagnostic (Accutrend Glucose [...] 10-26-2024 Lancets (Acti-La nce Lancets) 23 gauge [facility] [place] Start: 10-26-2024 Functional Status Date Assessment Result Facility NEGATED: Highlighted row Functional performance Functional status health issues are not documented Disease [place] [address] [address] Work Phone: Mental Status Date Assessment Result Facility 12-07-2024 Cognitive function Voice/Name [facility] Work Phone: 11-24-2024 Cognitive function Awake;Alert;A ppropria te;Follows Commands [facility] Work Phone: 11-10-2024 Cognitive function Awake;Alert;A [employer]pria te;Follows Commands [facility] Work Phone: NEGATED: Highlighted row Cognitive function [Interpretation] Cognitive status health issues are not documented Disease [address] Work Phone: Clinical Notes 12-28-2020 to 11-24-2024 Note Date & Type Note Facility 11-24-2024 Progress note [facility] 11-10-2024 Progress note [facility] 10-26-2024 Progress note [facility] 08-29-2024 Evaluation note Diagnosis Onset Date Resolution 21 weeks gestation of resolved August 29, 2024 1:40pm Low lying placenta, antepartum resolved August 29, 2024 1:40pm Spotting affecting resolved August 29, 2024 1:40pm Anemia in preg-unspec acute Apr il 5 9:34am H/O shoulder dystocia in prior , currently acute August 31 9:34am Obesity affecting acute August 31, 2024 9:34am acute August 31 9:34am Supervision of high-risk acute August 31 9:34am Tachycardia acute August 31 9:34am 21 weeks gestation of resolved August 31, 2024 9:34am Family history of cervical cancer resolved August 31, 2024 9:34am FH: breast cancer resolved August 312024 9:34am Low lying placenta, antepartum resolved August 31, 2024 9:34am Spotting affecting resolved August 31, 2024 9:34am Anemia in preg-unspec acute Aug 9:27am H/O shoulder dystocia in prior , currently acute September 28 9:27am History of bariatric surgery acute September 28, 2024 9:27am Obesity affecting acute September 28, 2024 9:27am acute September 28 9:27am Supervision of high-risk acute September 28, 2024 9:27am Tachycardia acute September 28 9:27am Family history of cervical cancer resolved September 28, 2024 9:27am FH: breast cancer resolved September 012024 9:27am Low lying placenta, antepartum resolved September 28, 2024 9:27am Anemia in preg-unspec acute October 26, 2024 9:48am Exposure to parvovirus acute Ma 2024 9:48am H/O shoulder dystocia in prior , currently acute October 26 9:48am History of bariatric surgery acute October 26, 2024 9 :48am Obesity affecting acute October 26, 2024 9 :48am acute October 26, 2024 9:48am Supervision of high-risk acute October 26 9:48am Tachycardia acute October 26 9:48am Low lying placenta, antepartum resolved October 26, 2024 9 :48am Anemia affecting acute November 10, 2024 9:48am Anemia in preg-unspec acute Oct 9:48am Exposure to parvovirus acute Ju 2024 9:48am H/O shoulder dystocia in prior , currently acute November 10 9:48am History of bariatric surgery acute November 10, 2024 9:48am Obesity affecting acute November 10, 2024 9:48am acute November 10 9:48am Supervision of high-risk acute November 10, 025 9:48am Tachycardia acute November 10 9:48am Low lying placenta, antepartum resolved November 10, 2024 9:48am Anemia affecting acute November 24, 2024 9:36am Anemia in preg-unspec acute Barrera e 2024 9:36am Exposure to parvovirus acute Ju 2024 9:36am H/O shoulder dystocia in prior , currently acute November 24 9:36am History of bariatric surgery acute November 24, 2024 9:36am Obesity affecting acute November 24, 2024 9:36am acute November 24 9:36am Supervision of high-risk acute November 24, 025 9:36am Tachycardia acute November 24 9:36am Low lying placenta, antepartum resolved November 24, 2024 9:36am Anemia affecting acute December 07, 2024 2 :04pm Anemia in preg-unspec acute Nov 2:04pm Exposure to parvovirus acute Ju ly 2024 2:04pm H/O shoulder dystocia in prior , currently acute December 07 2:04pm History of bariatric surgery acute December 07, 2024 2 :04pm Obesity affecting acute December 07, 2024 2 :04pm acute December 07, 2024 2:04pm Supervision of high-risk acute December 07 2:04pm Tachycardia acute December 07 2:04pm [facility] Work Phone: 1([phone]) 522-222503-31-2025 Evaluation note* Diagnosis Onset Date Resolution Status Admit Date 21 weeks gestation of resolved August 29, 2024 1:40pm Low lying placenta, antepartum resol shubham August 29, 2024 1:40pm Spotting affecting resolve d August 29, 2024 1:40pm Anemia in preg-unspec acute Apr 2024 9:34am H/O shoulder dystocia in [place] , currently acute Ap 2024 9:34am Obesity affecting acute August 31, 2024 9:34am acute August 31 9:34am Supervision of high-risk acute August 31, 2024 9:34am Tachycardia acute August 31 9:34am 21 weeks gestation of resolved August 31, 2024 9:34am Family history of cervical cancer resolved August 31, 2024 9:34am FH: breast cancer resolved August 312024 9:34am Low lying placenta, antepartum resol shubham August 31, 2024 9:34am Spotting affecting resolve d August 31, 2024 9:34am Anemia in preg-unspec acute Apr 2024 9:27am H/O shoulder dystocia in [place] , currently acute Ap ril 2024 9:27am History of bariatric surgery acute September 28, 2024 9:27am Obesity affecting acute September 28, 2024 9:27am acute September 28 9:27am Supervision of high-risk acute September 28, 2024 9:27am Tachycardia acute September 28, 2 025 9:27am Family history of cervical cancer resolved September 28, 2024 9:27am FH: breast cancer resolved September 012024 9:27am Low lying placenta, antepartum resol shubham September 28, 2024 9:27am Anemia in preg-unspec acute October 26, 2024 9:48am Exposure to parvovirus acute y 2024 9:48am H/O shoulder dystocia in [place] , currently acute Ma y 2024 9:48am History of bariatric surgery acute October 26, 2024 9:48am Obesity affecting acute October 26, 2024 9:48am acute October 26, 2024 9:48am Supervision of high-risk acute October 26, 2024 9 :48am Tachycardia acute October 26 9:48am Low lying placenta, antepartum resol shubham October 26, 2024 9:48am Anemia affecting acute November 10, 2024 9:48am Anemia in preg-unspec acute Oct 9:48am Exposure to parvovirus acute Ju 2024 9:48am H/O shoulder dystocia in [place] , currently acute 2024 9:48am History of bariatric surgery acute November 10, 2024 9:48am Obesity affecting acute November 10, 2024 9:48am acute November 10 9:48am Supervision of high-risk acute November 10, 2024 9:48am Tachycardia acute November 10 9:48am Low lying placenta, antepartum resol shubham November 10, 2024 9:48am Anemia affecting acute November 24, 2024 9:36am Anemia in preg-unspec acute Oct 9:36am Exposure to parvovirus acute ne 2024 9:36am H/O shoulder dystocia in [place] , currently acute ne 2024 9:36am History of bariatric surgery acute November 24, 2024 9:36am Obesity affecting acute November 24, 2024 9:36am acute November 24 9:36am Supervision of high-risk acute November 24, 2024 9:36am Tachycardia acute November 24 9:36am Low lying placenta, antepartum resol shubham November 24, 2024 9:36am Anemia affecting acute December 07, 2024 2:04pm Anemia in preg-unspec acute Nov 2:04pm Exposure to parvovirus acute ly 2024 2:04pm H/O shoulder dystocia in [place] , currently acute ly 2024 2:04pm History of bariatric surgery acute December 07, 2024 2:04pm Obesity affecting acute December 07, 2024 2:04pm acute December 07, 2024 2:04pm Supervision of high-risk acute December 07, 2024 2 :04pm Tachycardia acute December 07 2:04pm Anemia affecting acute December 15, 2024 5:40pm Anemia in preg-unspec acute Nov 5:40pm Exposure to parvovirus acute Ju ly 2024 5:40pm H/O shoulder dystocia in [place] , currently acute Ju ly 2024 5:40pm History of bariatric surgery acute December 15, 2024 5:40pm IUGR (intrauterine growth restriction) affecting care of mother acute December 15, 2024 5:40pm Obesity affecting acute December 15, 2024 5:40pm acute December 15 5:40pm Supervision of high-risk acute December 15, 2024 5:40pm Tachycardia acute December 15 5:40pm Anemia affecting acute December 16, 2024 9:19am Anemia in preg-unspec acute Nov 9:19am Exposure to parvovirus acute 2024 9:19am H/O shoulder dystocia in [place] , currently acute 2024 9:19am History of bariatric surgery acute December 16, 2024 9:19am IUGR (intrauterine growth restriction) affecting care of mother acute December 16, 2024 9:19am Obesity affecting acute December 16, 2024 9:19am acute December 16 9:19am Supervision of high-risk acute December 16, 2024 9:19am Tachycardia acute December 16 9:19am [facility] Work Phone: 1(600) 760-461203-31-2025 Radiology Diagnostic study note [facility] Imaging Services [address] [place] [address] OB Limited (No Biometrics) MR#: [id number] Acct: [id number] Name: AYE WEIR Rep #: [id number] : 1995 F 29 From: Paul Lopez MD PCP: Care Physician,No Primary Status: REG CLI Study:OB Limited (No Biometrics) Date of Exam : 08/29/24 Exam# [id number] Ordering Dr: Isabel Ferrell MD PROCEDURE: OB [...] not low-lying. position is breech. Reading Location: [facility] CC: Dr. Isabel Luz MD; No Primary Care Physician ~ Delivery And Installation Subcontractor: Signed [facility]03-06-2025 Evaluation note* Diagnosis Onset Date Resolution Status Admit Date H/O shoulder dystocia in [place] , currently acute [facility] 2024 9:16am Obesity affecting acute August 04, [...] Ma 2024 9:48am H/O shoulder dystocia in [place] , currently acute Ma y 2024 9:48am History of bariatric surgery acute [...] Ju 2024 9:48am H/O shoulder dystocia in [place] , currently acute 2024 9:48am History of bariatric surgery acute November 10, 2024 9:48am Low lying placenta, antepartum acute November 10, 2024 9:48am Obesity affecting acute November 10, 2024 9:48am acute November 10 9:48am Supervision of high-risk acute November 10, 2024 9:48am Tachycardia acute November 10 9:48am [facility] Work Phone: 1(839) 645-756603-06-2025 Evaluation note* Diagnosis Onset Date Resolution Status Admit Date H/O shoulder dystocia in [place] , currently acute Ma [facility] 2024 9:16am Obesity affecting acute August [...] or , currently acute Ap ril 2024 9:34am Low lying placenta, antepartum acute [...] 2024 9:36am Tachycardia acute November 24 9:36am [facility] Work Phone: 1(590) 577-156002-10-2025 Evaluation note* Diagnosis Onset Date Resolution Status Admit Date H/O shoulder dystocia in prior , currently acute July 11, 2 025 2:20pm Obesity affecting acute July 11, 2024 2:20pm acute July 11, 2024 2:20pm Supervision of high-risk acute July 11, 025 2:20pm Tachycardia acute July 2:20pm Family [...] Apr 2024 9:27am H/O shoulder dystocia in prior , [...] 2024 9:48am Exposure to parvovirus acute Ma y 2024 9:48am H/O shoulder dystocia in prior , currently acute October 26, 2024 9 :48am History of bariatric surgery acute October 26, 2024 9:48am Low lying placenta, antepartum acute October 26, 2024 9 :48am Obesity affecting acute October 26, 2024 9:48am acute October 26, 2024 9:48am Supervision of high-risk acute October 26, 2024 9 :48am Tachycardia acute October 26 9:[address]am [facility] Work Phone: 1(615) 500-248301-09-2025 Evaluation note* Diagnosis Onset Date Resolution Status Admit Date Family history of cervical cancer acute June 09 11:29am FH: breast cancer acute June 09, 2024 11:29am H/O shoulder dystocia in [place] , currently acute [facility] 2024 11:29am Obesity affecting acute June 09, 2024 11:29am acute June 09, 2 025 11:29am Supervision of high-risk acute June 09 11:29am Tachycardia acute June 09, 2024 11:29am Family history of cervical cancer acute July 11, 2 025 2:20pm FH: breast cancer acute 2024 2:20pm H/O shoulder dystocia in [place] , currently acute [facility]2024 2:20pm Obesity affecting acute July 11, 2024 2:20pm acute July 11, 2024 2:20pm Supervision of high-risk acute July 11, 2 025 2:20pm Tachycardia acute July 2:20pm Family history of cervical cancer acute August 04, 2024 9:16am FH: breast cancer acute August 042024 9:16am H/O shoulder dystocia in [place] , currently acute [facility] 2024 9:16am Obesity affecting acute August 04, 2024 9:16am acute August 04 9:16am Supervision of high-risk acute August 04, 2024 9:16am Tachycardia acute August 04 9:16am [facility] Work Phone: 1(219) 563-319312-13-2024 NoteHemoglobin EvaluationDecebanner casa grande [facility] 2023 11:24am11.3 g/gLWM[facility]12-13-2024 NoteHemoglobin EvaluationDevalleywise health medical [facility] 2023 11:24am11.3 g/gLWMagruder Memorial Hospital 03-09-2024 History of Present illness Narrative* Sierra Santos DO - 03/09/2024 12:40 PM EDT Subjective [...] disorder (ADHD), combined type documented in this [facility] Work Phone: 1(956) 247-510107-09-2024 History of Present illness Narrative* Jacquelyn Walker [...] Diagnosis Date Encounter for full-term uncomplicated delivery ([facility]) Normal vaginal delivery Other conditions influencing health status Menarche Personal history of other complications of , childbirth and the puerperium History of spontaneous Past Surgical History: Procedure Laterality Date OTHER SURGICAL HISTORY 03/12/2019 Hysteroscopy OTHER SURGICAL HISTORY 03/12/2019 Uterine polypectomy OTHER SURGICAL HISTORY 03/12/2019 Wrist surgery OTHER SURGICAL HISTORY 10/30/2021 Colonoscopy OTHER SURGICAL HISTORY 11/07/2019 Cushing tooth extraction Past med hx and past [...] visit in 1 year. [facility] Work Phone: 1(185) 426-928211-09-2023 History of Present illness Narrative* Jimena Gracia, - 04/09/2023 2:00 PM EST BARIATRIC CLINIC [...] (H) 12/28/2020 Lab Results Component Value Date [id number] 44.6 02/10/2023 Lab Results Component Value Date FOLATE >20.0 (H) 02/10/2023 Lab Results Component Value Date [id number] 146.8 02/10/2023 IMPRESSION: S/P sleeve gastrectomy PLAN: DISPOSITION: Return in 2 months for follow up visit EDUCATION: Pt encouraged to continue with positive lifestyle changes and take vitamins daily Advance to soft diet Check labs in 2 months Jimena Gracia DO documented [facility] this [facility] History of Present illness Narrative* Jimena Gracia [...] (H) 12/28/2020 Lab Results Component Value Date [id number] 44.6 02/10/2023 Lab Results Component Value Date FOLATE >20.0 (H) 02/10/2023 Lab Results Component Value Date [id number] 146.8 02/10/2023 IMPRESSION: S/P sleeve gastrectomy PLAN: DISPOSITION: Return in 2 weeks for follow up visit EDUCATION: Pt encouraged to continue with positive lifestyle changes and take vitamins daily Start vitamins Start exercising Advance to pureed diet Jimena Gracia DO documented in this encounterNationwide [facility]10-12-2023 Nurse Note* Nursing Notes - Ethel Menjivar RN - 03/12/2023 2:49 PM EDT Discharge instructions and education reviewed with pt, education provided for dx and new medications, printed education given, denies any questions, IV and tele removed. Patient provided with meds tobeds. [facility]10[facility] Miscellaneous Notes* Nursing Notes - Ethel Menjivar [...] further needs. * Therapy Note - Anthony Whitmore, PT - 03/12/2023 9:30 AM EDT PT evaluation orders received, medical chart reviewed. Patient admitted 03/11/23 s/p gastric sleeveprocedure per Dr. Gracia. Patient approached this morning for assessment, patient states ambulating independently without difficulty, declines need for skilled PT services. Discussed HEP and to continue with regular activity. PT will sign-off from caseload at this time. Anthony Whitmore, PT 03/12/2023 9:31 AM * Nursing Notes [...] Report DATE OF SERVICE: 03/11/2023 NAME: Aye eWir CSN: [id number] PRE OP DIAGNOSES: Morbid obesity with HTN [...] ICG for perfusion SURGEON: Jimena Gracia DO MANAGER LINE: Surgical Staff: Christian Education Director: Gricelda Polk RN; John Pradhan RN Scrub Person: Christiano Tracy Map And Chart Mounter Syrup Mixer: Priyanka Mckeon ANESTHESIA: GETA ESTIMATED BLOOD LOSS IN MLS: 20 COMPLICATIONS: None SPECIMEN: stomach PREOPERATIVE NOTE: The contemplated operative procedure, risks, benefits and alternatives to this procedure have been discussed with this patient and/or legal cash application representative. The patient and/or legal cash application representative acknowledge(s) understanding of the above and [...] took my position at the surgical [facility]. The liver was then retracted superiorly medially [...] discharge/transition of care. Outcome: Adequate for Discharge [facility]10-12-2023 Nurse Note* Nursing Notes - Ethel Menjivar RN - 03/12/2023 12:00 PM EDT Patient assessment unchanged from previous assessment. Any exceptions noted in flowsheets. Call light and personal items within reach. Patient denies any further needs. [facility]10-12-2023 Hospital course Narrative* Jimena Gracia DO - 03/12/2023 11:55 AM EDT Discharge Summary Name: Aye Weir Age: 28 y.o. Birthday: 1995 Admit Date: 03/11/2023 10:17 AM Discharge Date: 03/12/23 Discharge Time: 1156 Discharge Unit: [facility] Admission Information Admitting Physician: Jimena Gracia DO [...] Dept Phone 03/24/2023 10:15 AM Jimena Gracia [facility] [phone] 05/08/2023 2:00 PM Oct[facility] [phone] documented in this encounterNationwide Children'[facility]10-12-2023 History of Present illness Narrative* LUISA Paul - 03/12/2023 9:38 AM EDT 03/12/23 0916 Referral Information Arrived From home or self-care Information Source Information Source patient ;spouse Information Source Name Archie Weir Information Source Number [phone] Readmission Information Was patient readmitted within 30 Days? No Contact Information Hoop Machine Operator/SW Added to Care Team Yes This Instructional Systems Design Consultant is Primary Hoop Machine Operator/SW Yes Social Work Contact Name Shalini Rolon Psychologist Counseling's Outpatient Providers Outpatient Providers Updated In IHIS [...] Yes Initial Discharge Planning Home Care Services ([facility]) No Patient Goal for Discharge Get better Assessment/Concerns to be Addressed Concerns To Be Addressed no discharge needs identified Initial Discharge Planning Home Therapies ([facility]) None DME ([facility]) None Medical Supplies ([facility]) None Anticipated discharge disposition Home Anticipated Changes Related to Illness none Transportation Available car Home Care Services ([facility]) Additional Home Care Services ([facility]) no Referral received. Chart reviewed. Assessment completed with patient, spouse at bedside. Aye lives at home with her spouse and three children. She is independent with mobility, independent with self care. 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 Pt is current with her primary care doctor, able to afford her medications. She plans to return home when medically ready, no SW needs. DATA PROCESSING CONTROL CLERK available if needs arise. Discharge Plan Return home. * Octavio Cheney RD - 03/12/2023 9:24 AM EDT INPATIENT POST BARIATRIC SX NUTRITION ASSESSMENT Ms. Aye Weir is a 28 y.o. female was admitted to [facility] for: 1. Morbid obesity with body mass index of 50 or higher 2. Essential hypertension 3. Preop testing Nutrition Assessment Subjective Assessment: Pt is POD #1 from VSG w/ Dr. Gracia with a presurgical weight [...] lb) 02/18/21 (!) 152 kg (335 lb) [place] body weight: 59.3 kg (130 lb 11.7 [...] Laterality: N/A; Surgeon: Jimena Gracia DO; Location: [facility] OR EXCISION GANGLION CYST Right 03/2022 hand EGD W/ BX N/A 03/21/2021 Laterality: N/A; Surgeon: Rajiv Kemp MD; Location: [facility] ENDOSCOPY DILATION AND CURETTAGE 2018 REPAIR [...] 03/12/2023 RBC 4.36 03/12/2023 B12 594 02/10/2023 [id number] 44.6 02/10/2023 FOLATE >20.0 (H) 02/10/2023 Nutrition [...] Dietitian, Licensed Dietitian 03/12/23 documented in this encounterFortressware10-12-2023 Progress note* Therapy Note - Anthony Whitmore [...] time. Anthony Whitmore, PT 03/12/2023 9:31 AM T [employer] Work Phone: 1(687) 327-908010-12-2023 Nurse Note* Nursing Notes - Hilda Ho RN - 03/12/2023 3:55 AM EDT Patient resting in bed. Assessment unchanged from prior. Patient denies any needs. Call light within reach. [facility]10-11-2023 Nurse Note* Nursing Notes - Hilda Ho RN - 03/11/2023 11:32 PM EDT Assessment unchanged from prior. Patient does state her nausea is a lot better. Call light within reach. SCDs on. Denies any other needs. [facility]10[facility] Nurse Note* Cara Malcolm RN - 03/11/2023 5:50 PM EDT Patient transferred to [facility] via cart in stable condition. Report given to Med/mohs surgeon/general dermatologist. Cart left inlocked and lowest position with side rails up x2. call light given to patient. Monitors and alarms on and attached to patient. * John Pradhan RN - 03/11/2023 1:55 PM EDT Patient transported to PACU with Cody STUDENT DRIVING INSTRUCTOR. Reports given to Erendira SERRATO at 1355H. * John Pradhan RN - 03/11/2023 12:00 PM EDT OR 1 Temperature 67F Humidity 44% documented in this encounterNationwide Children'S Hospital10-11-2023 Nurse Surgical operation note* Cara Malcolm RN - 03/11/2023 5:50 PM EDT Patient transferred to [facility] via cart in stable condition. Report given to Med/mohs surgeon/general dermatologist. Cart left inlocked and lowest position with side rails up x2. call light given to patient. Monitors and alarms on and attached to patient. [facility]10-[facility] Hospital Discharge instructions* Discharge Instructions* Jimena Gracia DO - 03/11/2023 2:05 PM EDT Aye Randallderrick 1995 PRINCIPAL DIAGNOSIS: Morbid Obesity OTHER DIAGNOSES: [...] Everywhere. * [facility] and Pain Control ([facility]) (Hungarian) documented in this encounterNationwide Children'S Hospital10-11-2023 Nurse Surgical operation note* John Pradhan RN - 03/11/2023 1:55 PM EDT Patient transported to PACU with Cody AMANDA. Reports given to Erendira SERRATO at 1355H. [facility]10[facility] Progress note* Certification - Jimena Gracia DO - 03/11/2023 1:31 PM EDT I certify that this patient requires inpatient services at this time. I anticipate the expected length of stay will include at least two midnights. Current treatment plan includes pain and nausea control. Plans for post hospitalization care will be discharge to home. [facility] Surgery Postoperative evaluation and management note* Op Note - Jimena Gracia DO - 03/11/2023 1:28 PM EDT Operative Report DATE OF SERVICE: 03/11/2023 NAME: Aye Weir CSN: [id number] PRE OP DIAGNOSES: Morbid obesity with HTN [...] interpretation of ICG for perfusion SURGEON: Jimena rGacia DO MANAGER LINE: Surgical Staff: Christian Education Director: Gricelda Polk RN; John Pradhan RN Scrub Person: Christiano Tracy Map And Chart Mounter Syrup Mixer: Priyanka Mckeon ANESTHESIA: GETA ESTIMATED BLOOD LOSS IN MLS: 20 COMPLICATIONS: None SPECIMEN: stomach PREOPERATIVE NOTE: The contemplated operative procedure, risks, benefits and alternatives to this procedure have been discussed with this patient and/or legal cash application representative. The patient and/or legal cash application representative acknowledge(s) understanding of the above and [...] then took my position at the surgical [facility]. The liver was then retracted superiorly medially [...] stable condition. Jimena Gracia DO 1:28 PM [facility]10-11-2023 Nurse Surgical operation note* John Pradhan RN - 03/11/2023 12:00 PM EDT OR 1 Temperature 67F Humidity 44% [facility]09-21-2023 History of Present illness Narrative* Jimena Gracia DO - 02/19/2023 11:30 AM EDT Bariatric History and Physical Patient:Aye Weir :1995 Date: 02/19/2023 PRIMARY/REFERRING PHYSICIAN INFORMATION Sierra Snatos HISTORY OF PRESENT ILLNESS Aye Weir is [...] Laterality: N/A; Surgeon: Rajiv Kemp MD; Location: [facility] ENDOSCOPY DILATION AND CURETTAGE 2018 REPAIR [...] 11:33 AM Bariatric Surgery documented in this encounterNationwide Children'[facility] Hospital08-24-2023 History of Present illness Narrative* Sierra L DO Danielle - 01/22/2023 4:00 PM EDT Subjective Patient [...] disorder (ADHD), combined type documented in this encounterWy[facility] Work Phone: 1(447) 673-813206-22-2023 Telephone encounter Note* Telephone Encounter - Marjorie Welch - 11/20/2022 7:13 AM EDT Printed [facility] [id number] Miscellaneous Notes* Telephone Encounter - Marjorie Welch [...] call back to get scheduled for a TIRE DEBEADER appt for Gastric Bypass Consult. Aye states she has met all insurance requirements. Aye states she would like to get scheduled for the first available appt. Aye states she is available for call back anytime. Please contact Aye and advise. Office Name[facility] Medication Refills need, if any: N/A Medication Name: N/A documented in this encounterSClinton Memorial [id number] Telephone encounter Note* Telephone Encounter - Kim Zayas MA - 11/19/2022 3:53 PM EDT ROUTING TO NEW PATIENT TEAM. [facility] [id number] Telephone encounter Note* Telephone Encounter - Liz Chen - 11/19/2022 2:07 PM EDT Name of Caller: Aye Contact Reason for Appointment: Aye submitted an online request on 11/18/22 regarding a call back to get scheduled for a TIRE DEBEADER appt for Gastric Bypass Consult. Aye states she has met all insurance requirements. Aye states she would like to get scheduled for the first available appt. Aye states she is available for call back anytime. Please contact Aye and advise. 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 - Patient should be eligible for new supplies approximately every 3-6 months, depending on your insurance coverage, DME company will inform patient of coverage - If patient mask does not fit well, contact DME company before 30 days are up to get a new mask without an additional charge - Insurance requires regular usage and periodic office follow ups for PAP therapy to continue to cover supplies Insurance Requirements: - Your insurance requires a [id number] follow up visit within 31-90 days period [...] plan of care, referring/communicating with other health healthcare manager, as well as documenting the clinical information in the EHR. This includes face to face time and preparing to see the patient (review of tests) I personally reviewed selected chart notes, results, interpreted tests, imaging today before seeingthe pt; reviewed and discussed w/ pt, questions answered. Portions of this chart were created using [employer] electronic dictation. Please excuse any typographical or grammatical errors contained herein as a result. Some Elements copied from previous notes. I have updated where appropriate, and all reflect current medical decision making from today's encounter. KAREY Em documented in this encounterNationwide Children'S Hospital04-27-2023 History of Present illness Narrative* Sierra Santos, - 09/25/2022 3:00 PM EDT Subjective Patient [...] Screening for diabetes mellitus documented in this encounterWy[facility]ot [facility] Work Phone: 1(829) 882-174010-03-2022 History of Present illness Narrative* Sarah Cleaning TECHNOLOGIST - 03/03/2022 3:01 PM EDT Recent office vist, no covid screening needed documented in this [id number] History of Present illness Narrative* David Gallego - 02/27/2022 8:00 PM EDT Patient arrived at 2004 escorted to room 01. Test completed. The following is attached to the encounter: Test Data/Misc documented in this encounterNationwide Children'S Hospital08-26-2022 History of Present illness Narrative* Errol Wangt - 01/24/2022 9:30 PM EDT ..Patient arrived 2129 and escorted to room 04 The following is attached to the encounter: Test Data/Misc documented in this encounterNationwide Children'S Hospital08-01-2022 History of Present illness Narrative* Cassidy Thomas CNP - 12/30/2021 3:00 PM EDT [facility] [address] [facility] [address] [facility] [phone] Aye Weir, 26 year old female, presents to the office today for a bump on her right wrist.She reports having this for years. She did at one point feel as though the bump went away but then soon came back. She did work in a position that was very repetitious and she is right handed. 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 - Patient should be eligible for new supplies approximately every 3-6 months, depending on your insurance coverage, [employer] company will inform patient of coverage - If patient mask does not fit well, contact [employer] company before 30 days are up to get a new mask without an additional charge - Insurance requires regular usage and periodic office follow ups for PAP therapy to continue to cover supplies Insurance Requirements: - Your insurance requires a [id number] follow up visit within 31-90 days period [...] plan of care, referring/communicating with other health healthcare manager, as well as documenting the clinical information in the EHR. This includes face to face time and preparing to see the patient (review of tests) I personally reviewed selected chart notes, results, interpreted tests, imaging today before seeingthe pt; reviewed and discussed w/ pt, questions answered. Portions of this chart were created using [employer] electronic dictation. Please excuse any typographical or grammatical errors contained herein as a result. KAREY Em documented in this encounterMem[facility] Meddle [id number] History of Present illness Narrative* Joshua Akers PsyD - 11/18/2021 3:30 PM EDT Bariatric Feedback Session Name: Aye Carmella Date: 11/18/2021 Time in: 1525 Time out: 1556 Length of session: 31 minutes This psychological testing feedback session is correlated to DOS 09/20/2021, the date of the original evaluation and testing. Note: Met with Aye Carmella to discuss psychological testing, the bariatric evaluation [...] perspective. Joshua Akers PsyD documented in this [facility] SNAPin [id number] Instructions* Patient Instructions* Joshua Akers PsyD - 09/20/2021 2:43 PM EDT 1. Emotional eating is a factor. 2. This patient should learn and practice adaptive coping and relaxation skills. This will be discussed at our feedback session. Examples include but are not limited to: Deep breathing exercises. Progressive muscle relaxation. Guided imagery. Meditation. documented in this encounterNationwide Children'S Hospital04-22-2022 History of Present illness Narrative* Joshua Akers PsyD - 09/20/2021 1:00 PM EDT Pre-Bariatric Surgery Psychological Evaluation Name: Aye Weir : 1995 Age: 26 y.o. Sex: female [address]: [address] [place] [address] Date of Evaluation: 09/20/2021 Examiner: Joshua Akers PsyD Time of Diagnostic Evaluation: 2:25 PM Psychological Codes Used 40881 Psychological Diagnostic Interview 21256 Test Administration and Scoring (1st 30 minutes) 54153 Test Administration and Scoring (additional 30 minutes) 48103 Psychological Testing Services (1st 60 minutes) 55389 Psychological Testing Services (additional 60 minutes) Psychological Testing Table Code Date Time Spent Units Billed 98418 09/20/2021 NA 1 18950 09/20/2021 30 1 04138 09/20/2021 50 2 62760 09/26/2021 60 1 This pt will be seen for a feedback session at a later date. That service will be billed under the code 85850 which will relate back to this psychological evaluation and testing. Reason for Referral: [facility] and Dr Kemp or Dr Gracia have referred Aye Sofyatong for psychological evaluation to determine suitability for [...] best for you? 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 Relationship with parents: Moderate, mom is etoh, does not raise pt brother. Father doing better. Relationship with siblings: good * Marital Family/Significiant Relationships 5 years, great. Three kids. 5 female, 2 male, 1 male. * Education/Employment Graduated high school? 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 Likes this. Currently working? Yes [email or web address], 2 years. 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 * Current [...] was referred by Self, Self and the [facility] for psychological evaluation to [...] have numbness down both legs at times. [facility] Work Phone: 1(497) 205-789109-23-2021 History of Present illness Narrative* Patient is here today for virtual nutrition follow up * Pt is going [facility] for [facility]ric surgery planning. * Pt is has had 5 to her nutrition appts. * Pt is down 9 lbs in the last few months. * They did Not have a gifts officer to meet with her this month and recommended that she see me so shedid not have start all over. Has a follow up appt next month with their new gifts officer. * So far she has had the [...] her children that is not always feasible. [facility] Work Phone: 1([phone]) 410-150308-25-2021 History of Present illness Narrative* Karen Light, [...] minutes Karen Light RDN, LD Registered Dietitian Reeler Operator, Licensed Dietitian 01/23/21 documented in this encounterNationwide Children'S Hospital07-30-2021 History and physical note* Rajiv Kemp MD [...] Consult cardiology - Dr Reji Polanco in [place] Labs/CXR/EKG ordered EGD PCP for medical optimization Consult sleep medicine - concern for MANI - [place] Patient is interested in: undecided 45 minutes were spent with patient including history, physical exam, and education. Rajiv Kemp MD Bariatric and Minimally Invasive General Surgery documented in this encounterNationwide Children'S HospitalChief complaint Narrative - Reported* An interactive audio and video telecommunication system which permits real time communications between the patient (at the originating site) and provider (at the distant site) was utilized to providethis telehealth service. * 26 y/o presents virtually to talk about nutrition * She states she needs to stay in compliance with [employer] * She states they did not have a gifts officer available to talk with her this months [facility] Work Phone: Evaluation note* Diagnosis [...] Primary Esophageal reflux [facility] this [facility]* Diagnosis Essential hypertension Unspecified essential hypertension Tachycardia Tachycardia, unspecified Morbid obesity with body mass index of 50 or higher PCOS (polycystic ovarian syndrome) Polycystic ovaries Gastroesophageal reflux disease, unspecified whether esophagitis present Chronic pain of both hips GERD (gastroesophageal reflux disease)- Primary Esophageal reflux documented [facility] this encounter [facility]* Diagnosis Essential hypertension Unspecified essential hypertension Tachycardia Tachycardia, unspecified Morbid obesity with body mass index of 50 or higher PCOS (polycystic ovarian syndrome) Polycystic ovaries Gastroesophageal reflux disease, unspecified whether esophagitis present Chronic pain of both hips documented [facility] this encounter [facility]* Diagnosis GERD (gastroesophageal reflux disease)- Primary Esophageal reflux Morbid obesity with body mass index of 50 or higher- Primary GERD (gastroesophageal reflux disease) Esophageal reflux documented in this encounter [facility]* Diagnosis Binge-eating disorder, mild- Primary Panic disorder without agoraphobia documented in this encounter [facility]* Diagnosis Binge-eating disorder, in full remission, mild- Primary documented in this encounter [facility]* Diagnosis Sleep apnea, unspecified type- Primary Snoring Other dyspnea and respiratory abnormality Overweight Insomnia, unspecified type Morning headache Headache Fatigue, unspecified type Hypersomnia, unspecified documented in this encounter [facility]* Diagnosis Ganglion cyst- Primary Unspecified ganglion [facility]* Diagnosis Sleep apnea, unspecified type- Primary Snoring Other dyspnea and respiratory abnormality Overweight Insomnia, unspecified type Morning headache Headache Fatigue, unspecified type Hypersomnia, unspecified documented in this encounter [facility]* Diagnosis Ganglion cyst- Primary Unspecified ganglion Ganglion cyst- Primary Unspecified ganglion documented in this encounter [facility]* Diagnosis Sleep apnea, unspecified type- Primary documented in this encounter [facility]* Diagnosis Ganglion cyst- Primary Unspecified ganglion Ganglion cyst- Primary Unspecified ganglion Ganglion cyst Unspecified ganglion documented in this encounter [facility]* Diagnosis Hair loss- Primary Unspecified alopecia Other fatigue Screening for diabetes mellitus Gastroesophageal reflux disease without esophagitis Esophageal reflux Morbid obesity (CMS/HCC) Morbid obesity PCOS (polycystic ovarian syndrome) Polycystic ovaries Anxiety Anxiety state, unspecified documented in this encounter [facility] Work Phone: Evaluation note* Diagnosis Obstructive sleep apnea- Primary Obstructive sleep apnea (adult) (pediatric) Sleep related hypoxia Idiopathic sleep related nonobstructive alveolar hypoventilation Overweight Encounter for review of form with patient documented in this encounter [facility] note* Diagnosis Morbid obesity with body mass index of 50 or higher documented in this encounter [facility] note* Diagnosis Attention deficit hyperactivity disorder (ADHD), combined type- Primary documented in this encounter [facility] Work Phone: Evaluation note* Diagnosis Morbid obesity with body mass index of 50 or higher- Primary Essential hypertension Unspecified essential hypertension Morbid obesity with body mass index of 50 or higher Essential hypertension Unspecified essential hypertension documented in this encounter [facility] note* Diagnosis Morbid obesity with body mass index of 50 or higher Essential hypertension Unspecified essential hypertension Preop testing Preoperative examination, unspecified S/P gastric sleeve procedure documented in this encounter [facility] note* Diagnosis S/P gastric sleeve procedure- Primary documented in this encounter [facility] note* Diagnosis S/P laparoscopic sleeve gastrectomy- Primary documented in this encounter [facility] note* Diagnosis Attention deficit hyperactivity disorder (ADHD), combined type- Primary documented in this encounter [facility] Work Phone: Evaluation note* Diagnosis Attention deficit hyperactivity disorder (ADHD), combined type- Primary documented in this encounter [facility] Work Phone: Evaluation note* Diagnosis Encounter for gynecological examination without abnormal finding Encounter for screening for cervical cancer documented in this encounter [facility] Work Phone: History of Present illness [...] her delivery. She is on no multivitamin. [facility] Work Phone: History of Present illness NarrativePatient [...] to history of bleeding ulcers. No other complaints.-[facility] Work Phone: History of [...] range of motion/joint mobility and strength. [facility] Work Phone: History of Present illness Narrative* Patient identified by name & . Patient wore a mask during treatment d/t Covid-19 precautions. Treatment consisted of * . [facility] Work Phone: History of Present illness Narrative* Patient is here today for wrist lesion. * Patient reports that she has a cyst on her anterior wrist, it has gotten a lot bigger and it seems to be interfering with her movement of her wrist. She has been trying to do Yoga and this is interfering with her activity. -[facility] Work Phone: History of [...] work-up: * Echocardiogram 04/02/2020: Normal biventricular function [facility] Work Phone: History of Present illness Narrative* Aye Weir is a 27-year-old female with a h/o anemia, inappropriate sinus tachycardia, anxiety, and obesity presenting for pre-operative surgical clearance. * Surgery-Dr. Jimena Gracia at [facility]-Gastric Bypass * Preoperative evaluation: * -Patient currently [...] -On metoprolol 50 mg daily; no complaints [facility] Work Phone: History of Present illness NarrativePresents for annual exam. She voices no complaints and is doing well. Denies any bowel or bladder problems. Denies any breast problems. Her had a vasectomy. [facility] [facility] Work Phone: History of Present illness Narrative* Sierra Santos, - 11/26/2023 10:00 AM EDT Subjective Patient [...] disorder (ADHD), combined type documented in this encounterWyandot [facility] Hospital Work Phone: Hospital Discharge instructions Additional Instructions work release to be off work. Return date is September 05, [address] Luz. Pelvic rest.[facility] Work Phone: Instructions* Name Dates Details Instructions not documented [id number] [address] Work Phone: Progress note Author Adelaida Robertson [facility] Note Date/Time October 26, 2024 10:16 am [facility] [address] [place] [address], [address] [place] [address] OFFICE VISIT Date of Service: 10/26/24 MR#: [id number] Acct: [id number] Name: AYE EWIR Rep # : [id number] : 1995 Provider: Dr. 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[place] [employer] pets and animals: No history of recent travel: No sexually active: Yes Smoking Status: Never smoker alcohol intake: never substance use type: does not use well-balanced diet: daily or most days caffeine: No eating out: 1-3 times/week during the past year weight has: decreased > 10 lbs what type of physical activity do you participate in: none lupis/anabaptist: None seatbelt use: sometimes do you feel safe at home: Yes additional social history: Boyfriend- Gretchen- Works at the [employer] History 4 Elective abortions Hx Para 3 Spontaneous abortions Hx # Term Pregnancies Ectopic pregnancies Hx # Pregnancies Multiple births # of living children 3 Past Pregnancies Del. Date Name GA/Weeks Outcome Route Bth Weight Gen Labor Lgth Anesthesia Del Locatn Provider FOB 08/21/16 [place] 39 live - full term 9# Female epidural [facility] Dr. Aaron Almanza 05/05/19 [place] 39 live - full term 8#1oz Male [facility] Dr. Castillo Almanza 06/06/20 [place] 38 live - full term 9#6oz Male [facility] Dr. Castillo Almanza Delivery Date: 05/05/19 Last [...] ob labs. states got them at Dr. aWlker's office before she came to us. Has [...] oz) 102/64 Negative -?-?-?-?-?-?-?-?-?-?-?-?- Negative 160 -?-?-?-?-?-?-?-?-?-?-?-?- MH-Seen [facility] 08/29 for vag bleeding. Still with [...] and Symptoms of Preeclampsia, Feeding No , [place] Education and Family Medical Leave or Disability [...] Cosigner Signature: Date (if applicable) CC: ~ [facility] Work Phone: Progrxpl note Author Jocelyn Malcolm [facility] Note Date/Time November 10, 2024 10:2 3am [facility] [address], [address] [place] [address] OFFICE VISIT Date of Service: 11/10/24 MR#: [id number] Acct: [id number] Name: AYE WEIR Rep # : [id number] : 1995 Provider: RICKY Malcolm Age/Sex: 29/F Location: [facility] Status: Signed Intake Vital Signs 06/09/24 11:31 10/26/24 09:55 11/10/24 09:55 Height 5 ft 6 in 5 ft 6 in 5 ft 6 in Weight: 225 lb 4 oz BMI 36.3 BP 105/68 Intake Visit Reasons: 32 WK OB Sugar Coating Hand Required: No Is patient in pain?: No [...] mg-folate no.1 1 mg-dha 300 mg capsule (PNV-[place]) blood sugar diagnostic (Accutrend #50 ea 10/26/2410/30 [...] occupational status: employed 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[facility] pets and animals: No history of recent travel: No sexually active: Yes Smoking Status: Never smoker alcohol intake: never substance use type: does not use well-balanced diet: daily or most days caffeine: No eating out: 1-3 times/week during the past year weight has: decreased > 10 lbs what type of physical activity do you participate in: none lupis/anabaptist: None seatbelt use: sometimes do you feel safe at home: Yes additional social history: Boyfriend- Gretchen- Works at the [employer] History 4 Elective abortions Hx Para 3 Spontaneous abortions Hx # Term Pregnancies Ectopic pregnancies Hx # Pregnancies Multiple births # of living children 3 Past Pregnancies Del. Date Name GA/Weeks Outcome Route Bth Weight Gen Labor Lgth Anesthesia Del Locatn Provider FOB 08/21/16 Layo 39 live - full term 9# [facility] Aaron Almanza 05/05/19 [place] 39 live - full term 8#1oz Male [facility] Dr. Castillo Almanza 06/06/20 Melissa 38 live - full term 9#6oz Male [facility] Dr. Castillo Almanza Delivery Date: 05/05/19 Last [...] second trimester Comment: PRR, , DOMONIQUE 01/06/25, Rolando Henry Rowan BF Jyothi (9) : Status: [...] by Jocelyn valero CNM> Date _ Jocelyn Malcoml CNM Cosigner Signature: Date (if applicable) CC: ~ [facility] Work Phone: progrhtc note Author Isabel Luz [facility] Note Date/Time November 24, 2024 10:0 5am [facility] [address] [place] [address], [address] [place] [address] OFFICE VISIT Date of Service: 11/24/24 MR#: [id number] Acct: [id number] Name: AYE WEIR Rep # : [id number] : 1995 Provider: Dr. Isac Luz MD Age/Sex: 29/F Location: [facility] Status: Signed Intake Vital Signs 06/09/24 11:31 11/10/24 10:43 11/24/24 09:40 Height 5 ft 6 in 5 ft 6 in 5 ft 6 in Weight: 230 lb 4 oz BMI 37.1 BP 105/66 Intake Visit Reasons: 34 WK OB Sugar Coating Hand Required: No Is patient in pain?: No Allergies morphine Allergy (Intermediate, Verified 11/24/24 09:40) Hives Medications ?Medication ?Instructions ?Recorded ?Confirmed ?Type bupropion HCl 300 mg 24 hr tablet, 300 mg PO QAM 06/0911/24/24 History extended release (Wellbutrin XL) metoprolol succinate 50 mg 50 mg PO QDAY 06/09/2410/31 History tablet,extended release 24 hr multivit-min no.71-iron fum 28 1 cap PO DAILY 06/09/24 11/24/24 History mg-folate no.1 1 mg-dha 300 mg capsule (PNV-[place]) blood sugar diagnostic (Accutrend #50 ea 10/26/2410/31 Rx Glucose test strips) blood-glucose meter (Accu-Chek [...] occupational status: employed 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[facility] pets and animals: No history of recent travel: No sexually active: Yes Smoking Status: Never smoker alcohol intake: never substance use type: does not use well-balanced diet: daily or most days caffeine: No eating out: 1-3 times/week during the past year weight has: decreased > 10 lbs what type of physical activity do you participate in: none lupis/anabaptist: None seatbelt use: sometimes do you feel safe at home: Yes additional social history: Boyfriend- Gretchen- Works at the [employer] History 4 Elective abortions Hx Para 3 Spontaneous abortions Hx # Term Pregnancies Ectopic pregnancies Hx # Pregnancies Multiple births # of living children 3 Past Pregnancies Del. Date Name GA/Weeks Outcome Route Bth Weight Infant Gen Labor Lgth Anes thes ia Del Locatn Provider FOB 08/21/16 Layo 39 live - full term 9# [facility] Aaron Almanza 05/05/19 [place] 39 live - full term 8#1oz Male [facility] Dr. Castillo Almanza 06/06/20 Melissa 38 live - full term 9#6oz Male epidural [facility] Dr. Castillo Almanza Delivery Date: 05/05/19 Last [...] Pelvic rest. Reviewed bleeding precautions 09/28/24 -?-?-?-?-?-?-?-?-?-?-?-?- w 5d 223 lb (+20 lb) 103/69 -?-?-?-?-?-?-?-?-?-?-?-?- [...] and Symptoms of Preeclampsia, Feeding No , [place] Education and Family Medical Leave or Disability [...] Cosigner Signature: Date (if applicable) CC: ~ [facility] Work Phone: Reason for referral (narrative)* Consultation (Routine) - Authorized Specialty Diagnoses / Procedures Referred By Nory lima Referred To Contact Primary Care Procedures Follow Up In Primary Care - Established Sierra Santos, [address] [facility] [place] [address] Referral ID Status Reason Start Date Expiration Date V isits Requested Visits Authorized [id number] Authorized 01/22/2023 07/21/2023 1 1 [facility] Work Phone: Reason for referral (narrative)* (Routine) Specialty Diagnoses / Procedures Referred By Contac t Referred To Contact [facility] [address] [place] [address], [place] [address] Referral ID Status Reason Start Date Expiration Date Visits Re quested Visits Authorized * (Routine) Specialty Diagnoses / Procedures Referred By Contac t Referred To Contact [facility] [address] [place] [id number] Referral ID Status Reason Start Date Expiration Date Visits Re quested Visits Authorized * (Routine) Specialty Diagnoses / Procedures Referred By Contac t Referred To Contact [address] [address] Referral ID Status Reason Start Date Expiration Date Visits Re quested Visits [facility]ized [facility] Consultation (Routine) - Authorized Specialty Diagnoses / Procedures Referred By Contac t Referred To Contact Primary Care Procedures Follow Up In Primary Care - Established Sierra Santos DO [address] [place] [address] [place] [address] Referral ID Status Reason Start Date Expiration Date V isits Requested Visits Authorized [id number] Authorized 03/09/2024 03/09/2025 1 1 [facility] Work Phone: Reason for referral (narrative)* Consultation (Routine) - Authorized Specialty Diagnoses / Procedures Referred By Contac t Referred To Contact Primary Care Procedures Follow Up In Primary Care - Established Sierra Santos DO [address] [facility] Physician [place] [id number] Referral ID Status Reason Start Date Expiration Date V isits Requested Visits Authorized [id number] Authorized 11/26/2023 11/25/2024 1 1 * Medications - Closed Specialty Diagnoses / Procedures Referred By Nory lima Referred To Contact Diagnoses Attention deficit hyperactivity disorder (ADHD), combined type Sierra Santos DO [address] [facility] [place] [address] Referral ID Status Reason Start Date Expiration Date Visits Re quested Visits Authorized [id number] Closed 1 1 [facility] Work Phone: Reason for referral (narrative)No reason for referral information availableWM[facility] Work Phone: Reason for visit Narrative* Initial Evaluation . thor/LBP. * Referred by: [facility] Work Phone: Summary Purpose Family History [...] with laying supine and bending over to oyster picker things. * Patient has been taking [...] Referral Specialty Diagnoses / Procedures Referred By Nory t Referred To Contact Diagnoses Essential hypertension Tachycardia Morbid obesity with body mass index of 50 or higher PCOS (polycystic ovarian syndrome) Gastroesophageal reflux disease, unspecified whether esophagitis present Chronic pain of both hips Procedures ECG Rajiv Kemp MD [address] [place] [address] Referral ID Status Reason Start Date Expiration Date V isits Requested Visits Authorized [id number] New Request 12/28/2020 01/22/2022 1 1 Specialty Diagnoses / Procedures Referred By Contac t Referred To Contact Diagnoses Essential hypertension Tachycardia Morbid obesity with body mass index of 50 or higher PCOS (polycystic ovarian syndrome) Gastroesophageal reflux disease, unspecified whether esophagitis present Chronic pain of both hips Rajiv Kemp MD [address] [place] [phone] Referral ID Status Reason Start Date Expiration Date V isits Requested Visits Authorized [id number] New Request 12/28/2020 01/22/2022 1 1 Specialty Diagnoses / Procedures Referred By Contac t Referred To Contact Psychology Diagnoses Essential hypertension Tachycardia Morbid obesity with body mass index of 50 or higher PCOS (polycystic ovarian syndrome) Gastroesophageal reflux disease, unspecified whether esophagitis present Chronic pain of both hips Rajiv Kemp MD [address] [place] [address] Joshua Akers, Vanita [address] [place] [phone] Referral ID Status Reason Start Date Expiration Date V isits Requested Visits Authorized [id number] Auth Not Needed 12/28/2020 01/22/2022 1 1 Specialty Diagnoses / Procedures Referred By Contac t Referred To Contact Nutrition and Dietetics Diagnoses Essential hypertension Tachycardia Morbid obesity with body mass index of 50 or higher PCOS (polycystic ovarian syndrome) Gastroesophageal reflux disease, unspecified whether esophagitis present Chronic pain of both hips Rajiv Kemp MD [address] [place] [address] [facility] [address] [place] [phone] Referral ID Status Reason Start Date Expiration Date V isits Requested Visits Authorized [id number] New Request 12/28/2020 01/22/2022 15 15 Specialty Diagnoses / Procedures Referred By Contac t Referred To Contact Orthopaedic Surgery Diagnoses Chronic pain of both hips Rajiv Kemp MD [address] [place] [address] Orthopaedic Surgery [address] [place] [address] Referral ID Status Reason Start Date Expiration Date V isits Requested Visits Authorized [id number] New Request 12/28/2020 01/22/2022 1 1 Specialty Diagnoses / Procedures Referred By Contac t Referred To Contact Diagnoses Sleep apnea, unspecified type Snoring Overweight Insomnia, unspecified type Morning headache Fatigue, unspecified type Hypersomnia, unspecified Procedures SLEEP STUDY - TITRATION Shavonne Briseno, MANUFACTURING INDUSTRIAL ENGINEER-[employer] EQUIPMENT OPERATOR [address] [phone] Referral ID Status Reason Start Date Expiration Date V isits Requested Visits Authorized [id number] New Request 12/24/2021 01/18/2023 1 1 Specialty Diagnoses / Procedures Referred By Contac t Referred To Contact Diagnoses Sleep apnea, unspecified type Snoring Overweight Insomnia, unspecified type Morning headache Fatigue, unspecified type Hypersomnia, unspecified Procedures SLEEP STUDY - DIAGNOSTIC Shavonne Briseno, MANUFACTURING INDUSTRIAL ENGINEER-[employer] EQUIPMENT OPERATOR [address] [phone] Referral ID Status Reason Start Date Expiration Date V isits Requested Visits Authorized [id number] New Request 12/24/2021 01/18/2023 1 1 Specialty Diagnoses / Procedures Referred By Contac t Referred To Contact Radiology Diagnoses Ganglion cyst Procedures MR Wrist Right Without Contrast Cassidy Thomas, [employer] EQUIP[employer] OPERATOR [address] [place] [address] Referral ID Status Reason Start Date Expiration Date V isits Requested Visits Authorized [id number] New Request 12/30/2021 12/30/2022 1 1 Chief Complaint and Reason for Visit Chief Complaint Admit Date LMP 04/01 DOMONIQUE 01/06June 09, 2024 11 :29am 14 WK OB July 11, 2024 2:20pm 18 WK OB August 04, 2024 9:16 am Reason for Visit Admit Date Family history of cervical cancer Ric gregorio 2024 11:29am FH: breast cancer June 09, 2024 11 :29am H/O shoulder dystocia in [place] , currently June 09, 2024 11:29am Obesity affecting June 09, 2024 11:29am June 09, 2024 11 :29am Supervision of high-risk Janua ry 2024 11:29am Tachycardia June 09, 2024 11 :29am Family history of cervical cancer Februa ry 2024 2:20pm FH: breast cancer July 11, 2024 2:20pm H/O shoulder dystocia in [place] , currently July 11, 2024 2:20pm Obesity affecting July 2:20pm July 11, 2024 2:20pm Supervision of high-risk Febru crescencio 2024 2:20pm Tachycardia July 11, 2024 2:20pm Family history of cervical cancer August 04, 2024 9:16am FH: breast cancer August 04, 2024 9:16 am H/O shoulder dystocia in [place] , currently August 04, 2024 9:16am Obesity affecting August 04, 025 9:16am August 04, 2024 9:16 am [...] 04, 2024 9:16am Obesity affecting August 04 9:16am August 04, 2024 9:16 am Supervision [...] placenta, antepartum August 9:34am Obesity affecting August 31 9:34am August 31, 2024 9:34 am Supervision [...] 04, 2024 9:16am Obesity affecting August 04 9:16am August 04, 2024 9:16 am Supervision [...] placenta, antepartum August 9:34am Obesity affecting August 31 025 9:34am August 31, 2024 9:34 am [...] 04, 2024 9:16am Obesity affecting August 04 9:16am August 04, 2024 9:16 am Supervision [...] placenta, antepartum August 9:34am Obesity affecting August 31 9:34am August 31, 2024 9:34 am Supervision [...] antepartum October 9:36am Obesity affecting November 24 025 9:36am November 24, 2024 9:36 am Supervision [...] VENOFER 300MG November 24, 2024 10:1 9am Chief Complaint Admit Date BLEEDING August 29, 2024 1:4 0pm BLEEDING [...] VENOFER 300MG November 24, 2024 10:1 9am VENOFER 300MG December 07, 2024 11:29 am 36wk ob December 07, 2024 2:04p m Reason for Visit Admit Date 21 weeks gestation of August 292024 1:40pm Low lying placenta, antepartum July 1:40pm Spotting affecting August 29, 2024 1:40pm Anemia in preg-unspec August 31, 2024 9: 34am H/O shoulder dystocia in prior , currently August 31, 2024 9:34am Obesity affecting August 31 2 025 9:34am August 31, 2024 9:34 am Supervision of high-risk August 31, 2024 9:34am Tachycardia August 31, 2024 9:34 am 21 weeks gestation of August 9:34am Family history of cervical cancer August 31, 2024 9:34am FH: breast cancer August 31, 2024 9:34 am Low lying placenta, antepartum August 9:34am Spotting affecting August 31, 2024 9:34am Anemia in preg-unspec September 28, 2024 9 :27am H/O shoulder dystocia in prior , currently September 28, 2024 9:27am History of bariatric surgery September 28, 2024 9:27am Obesity affecting September 28, 2024 9:27am September 28, 2024 9:2 7am Supervision of high-risk September 28, 2024 9:27am Tachycardia September 28, 2024 9:2 7am Family history of cervical cancer September 28, 2024 9:27am FH: breast cancer September 28, 2024 9:2 7am Low lying placenta, antepartum August 9:27am Anemia in preg-unspec October 26, 2024 9:4 8am Exposure to parvovirus October 26, 2024 9: 48am H/O shoulder dystocia in prior , currently October 26, 2024 9:48am History of bariatric surgery October 26, 9:48am Obesity affecting October 26 9:48am October 26, 2024 9:48a m Supervision of high-risk September 302024 9:48am Tachycardia October 26, 2024 9:48a m Low lying placenta, antepartum October 26, 2024 9:48am Anemia affecting November 10 9:48am Anemia in preg-unspec November 10, 2024 9: 48am Exposure to parvovirus November 10, 2024 9 :48am H/O shoulder dystocia in prior , currently November 10, 2024 9:48am History of bariatric surgery November 10, 2024 9:48am Obesity affecting November 10 9:48am November 10, 2024 9:48 am Supervision of high-risk November 10, 2024 9:48am Tachycardia November 10, 2024 9:48 am Low lying placenta, antepartum October 9:48am Anemia affecting Radha 26th, 20 25 9:36am Anemia in preg-unspec November 24, 2024 9: 36am Exposure to parvovirus November 24, 2024 9 :36am H/O shoulder dystocia in prior , currently November 24, 2024 9:36am History of bariatric surgery November 24, 2024 9:36am Obesity affecting November 24, 025 9:36am November 24, 2024 9:36 am Supervision of high-risk November 24, 2024 9:36am Tachycardia November 24, 2024 9:36 am Low lying placenta, antepartum October 9:36am Anemia affecting December 07 2:04pm Anemia in preg-unspec December 07, 2024 2:0 4pm Exposure to parvovirus December 07, 2024 2: 04pm H/O shoulder dystocia in prior , currently December 07, 2024 2:04pm History of bariatric surgery December 07 025 2:04pm Obesity affecting December 07 2:04pm December 07, 2024 2:04p m Supervision of high-risk December 07, 2024 2:04pm Tachycardia December 07, 2024 2:04p m Chief Complaint Admit Date BLEEDING August 29, 2024 1:4 0pm BLEEDING [...] VENOFER 300MG November 24, 2024 10:1 9am VENOFER 300MG December 07, 2024 11:29 am 36wk ob December 07, 2024 2:04p m NST December 15, 2024 5:40 pm Chief Complaint Admit Date BLEEDING August 29, 2024 1:4 0pm BLEEDING August 30, 2024 4:13 pm 22WK OB August 31, 2024 9:34 am 26 WK OB/ GLUCOSE September 28, 2024 9:2 7am 30 WK OB May 28th, 2025 9:48a m 32 WK OB November 10, 2024 9:48 am VENOFER 300MG November 10, 2024 10:3 2am 34 WK OB November 24, 2024 9:36 am VENOFER 300MG November 24, 2024 10:1 9am VENOFER 300MG December 07, 2024 11:29 am 36wk ob December 07, 2024 2:04p m NST December 15, 2024 5:40 pm NST December 15, 2024 7:04 pm 37wk ob December 16, 2024 9:19 am Reason for Visit Admit Date 21 weeks gestation of August 292024 1:40pm Low lying placenta, antepartum July 1:40pm Spotting affecting August 29, 2024 1:40pm Anemia in preg-unspec August 31, 2024 9: 34am H/O shoulder dystocia in prior , currently August 31, 2024 9:34am Obesity affecting August 31 9:34am August 31, 2024 9:34 am Supervision of high-risk August 31, 2024 9:34am Tachycardia August 31, 2024 9:34 am 21 weeks gestation of August 9:34am Family history of cervical cancer August 31, 2024 9:34am FH: breast cancer August 31, 2024 9:34 am Low lying placenta, antepartum August 9:34am Spotting affecting August 31, 2024 9:34am Anemia in preg-unspec September 28, 2024 9 :27am H/O shoulder dystocia in prior , currently September 28, 2024 9:27am History of bariatric surgery September 28, 2024 9:27am Obesity affecting September 28, 2024 9:27am September 28, 2024 9:2 7am Supervision of high-risk September 28, 2024 9:27am Tachycardia September 28, 2024 9:2 7am Family history of cervical cancer September 28, 2024 9:27am FH: breast cancer September 28, 2024 9:2 7am Low lying placenta, antepartum August 9:27am Anemia in preg-unspec October 26, 2024 9:4 8am Exposure to parvovirus October 26, 2024 9: 48am H/O shoulder dystocia in prior , currently October 26, 2024 9:48am History of bariatric surgery October 26, 2 025 9:48am Obesity affecting October 26 9:48am October 26, 2024 9:48a m Supervision of high-risk September 302024 9:48am Tachycardia October 26, 2024 9:48a m Low lying placenta, antepartum October 26, 2024 9:48am Anemia affecting November 10 9:48am Anemia in preg-unspec November 10, 2024 9: 48am Exposure to parvovirus November 10, 2024 9 :48am H/O shoulder dystocia in prior , currently November 10, 2024 9:48am History of bariatric surgery November 10, 2024 9:48am Obesity affecting November 10 025 9:48am November 10, 2024 9:48 am Supervision of high-risk November 10, 2024 9:48am Tachycardia November 10, 2024 9:48 am Low lying placenta, antepartum October 9:48am Anemia affecting November 24 9:36am Anemia in preg-unspec November 24, 2024 9: 36am Exposure to parvovirus November 24, 2024 9 :36am H/O shoulder dystocia in prior , currently November 24, 2024 9:36am History of bariatric surgery November 24, 2024 9:36am Obesity affecting November 24 025 9:36am November 24, 2024 9:36 am Supervision of high-risk November 24, 2024 9:36am Tachycardia November 24, 2024 9:36 am Low lying placenta, antepartum October 9:36am Anemia affecting December 07 2:04pm Anemia in preg-unspec December 07, 2024 2:0 4pm Exposure to parvovirus December 07, 2024 2: 04pm H/O shoulder dystocia in prior , currently December 07, 2024 2:04pm History of bariatric surgery December 07, 2 025 2:04pm Obesity affecting December 07 2:04pm December 07, 2024 2:04p m Supervision of high-risk December 07, 2024 2:04pm Tachycardia December 07, 2024 2:04p m Anemia affecting December 15 5:40pm Anemia in preg-unspec December 15, 2024 5: 40pm Exposure to parvovirus December 15, 2024 5 :40pm H/O shoulder dystocia in prior , currently December 15, 2024 5:40pm History of bariatric surgery December 15, 2024 5:40pm IUGR (intrauterine growth re striction) affecting care of mother December 15, 2024 5:40pm Obesity affecting December 15, 025 5:40pm December 15, 2024 5:40 pm Supervision of high-risk December 15, 2024 5:40pm Tachycardia December 15, 2024 5:40 pm Anemia affecting December 16 9:19am Anemia in preg-unspec December 16, 2024 9: 19am Exposure to parvovirus December 16, 2024 9 :19am H/O shoulder dystocia in prior , currently December 16, 2024 9:19am History of bariatric surgery December 16, 2024 9:19am IUGR (intrauterine growth re striction) affecting care of mother December 16, 2024 9:19am Obesity affecting December 16 025 9:19am December 16, 2024 9:19 am Supervision of high-risk December 16, 2024 9:19am Tachycardia December 16, 2024 9:19 am Additional Source Comments INFORMATION SOURCE (unrecogn ized section and content) DATE CREATED AUTHOR 02/27/2019 [facility] DATE CREATED AUTHOR AUTHOR'S ORGANIZ ATION 04/21/2019 [facility] DATE CREATED AUTHOR AUTHOR'S ORGANIZ ATION 03/23/2022 [facility] DATE CREATED AUTHOR AUTHOR'S ORGANIZ ATION 03/25/2022 [facility] DATE CREATED AUTHOR AUTHOR'S ORGANIZ ATION 11/20/2022 [facility] DATE CREATED AUTHOR AUTHOR'S ORGANIZ ATION 12/02/2022 [facility] DATE CREATED AUTHOR AUTHOR'S ORGANIZ ATION 12/04/2022 [facility] DATE CREATED AUTHOR AUTHOR'S ORGANIZ ATION 12/18/2022 [facility] DATE CREATED AUTHOR AUTHOR'S ORGANIZ ATION 08/15/2023 [facility] DATE CREATED AUTHOR AUTHOR'S ORGANIZ ATION 11/01/2023 [facility] DATE CREATED AUTHOR AUTHOR'S ORGANIZ ATION 05/19/2024 [facility] DATE CREATED AUTHOR AUTHOR'S ORGANIZ ATION 05/20/2024 [facility] DATE CREATED AUTHOR AUTHOR'S ORGANIZ ATION 06/17/2024 [facility] DATE CREATED AUTHOR AUTHOR'S ORGANIZ ATION 12/17/2024 [facility] DATE CREATED AUTHOR AUTHOR'S ORGANIZ ATION 12/19/2024 [facility] Reason for Visit (unrecogniz ed section and content) Reason Comments Consult bairiatric Specialty Diagnoses / Procedures Referred By Contac t Referred To Contact Nutrition and Dietetics Diagnoses Essential hypertension Tachycardia Morbid obesity with body mass index of 50 or higher PCOS (polycystic ovarian syndrome) Gastroesophageal reflux disease, unspecified whether esophagitis present Chronic pain of both hips Rajiv Kemp MD [address] [place], [place] [id number] [facility] Nutrition And Dietetics [address] [place] [phone] Referral ID Status Reason Start Date Expiration Date V isits Requested Visits Authorized [id number] New Request 12/28/2020 01/22/2022 15 15 Reason Comments New Patient Eating Disorder Reason Comments Nutrition Consultation Specialty Diagnoses / Procedures Referred By Contac t Referred To Contact Nutrition and Dietetics Diagnoses Essential hypertension Tachycardia Morbid obesity with body mass index of 50 or higher PCOS (polycystic ovarian syndrome) Gastroesophageal reflux disease, unspecified whether esophagitis present Chronic pain of both hips Rajiv Kemp MD [address] [place] [address] [facility] Nutrition And Dietetics [address] [place] [phone] Reason Comments Follow-up Eating Disorder Reason Comments New Patient Pre-operative Consultation Daytime Sleepiness Restless Legs Insomnia Specialty Diagnoses / Procedures Referred By Contac t Referred To Contact Sleep Medicine Diagnoses Essential hypertension Tachycardia Morbid obesity with body mass index of 50 or higher PCOS (polycystic ovarian syndrome) Gastroesophageal reflux disease, unspecified whether esophagitis present Chronic pain of both hips Rajiv Kemp MD [address] [place] [address] Shavonne Briseno, MANUFACTURING INDUSTRIAL ENGINEER-[employer] EQUIPMENT OPERATOR [address] [phone] Referral ID Status Reason Start Date Expiration Date Visits Re quested Visits Authorized [id number] Closed 12/28/2020 01/22/2022 15 15 Reason Comments Pain Reason Comments Daytime Sleepiness Specialty Diagnoses / Procedures Referred By Nory lima Referred To Contact Diagnoses Sleep apnea, unspecified type Snoring Overweight Insomnia, unspecified type Morning headache Fatigue, unspecified type Hypersomnia, unspecified Procedures SLEEP STUDY - DIAGNOSTIC Shavonne Briseno, MANUFACTURING INDUSTRIAL ENGINEER-LONGSHORE EQUIPMENT OPERATOR [address] [address] Referral ID Status Reason Start Date Expiration Date Visits Re quested Visits Authorized [id number] Closed 12/24/2021 01/18/2023 1 1 Reason Comments Sleep Problem Specialty Diagnoses / Procedures Referred By Nory t Referred To Contact Diagnoses Obstructive sleep apnea Sleep related hypoxia Snoring Overweight Morning headache Fatigue, unspecified type Encounter to discuss test results Procedures SLEEP STUDY - TITRATION Shavonne Briseno, MANUFACTURING INDUSTRIAL ENGINEER-LONGSHORE EQUIPMENT OPERATOR [address] [address] Referral ID Status Reason Start Date Expiration Date Visits Re quested Visits Authorized [id number] Open 01/30/2022 02/24/2023 1 1 Reason Comments Alopecia Reason Comments Sleep Apnea Reason Comments Follow-up Discuss medications Reason Comments Pre-op Exam Pre-op Sleeve 03/11 ONT Specialty Diagnoses / Procedures Referred By Nory lima Referred To Contact Diagnoses Morbid obesity with body mass index of 50 or higher Essential hypertension Morbid obesity with body mass index of 50 or higher [E66.01] Essential hypertension [I10] Procedures [place] LAP, KAMERON RESTRICT PROC, LONGITUDINAL GASTRECTOMY GASTRECTOMY LONGITUDINAL (SLEEVE) ROBOTIC Jimena Gracia, DO [address] [place] [address] Referral ID Status Reason Start Date Expiration Date Visits Re quested Visits Authorized [id number] 02/19/2023 1 1 Reason Comments Post Op Visit 2 wk post op sleeve 03/11/23 Reason Comments Post Op Visit 1 mo post op sleeve Reason Onset Date Comments Appointment Request 11/19/2022 TIRE DEBEADER Appt Reason Comments Follow-up 3 monthMedication RF [...] Inactive Member Role Status Dates Luisa Curiel TIRE DEBEADER, TIRE DEBEADER-C Attending Provider Active Start: August 31, 2024 [...] June 09, 2024 End: June 09, 2024 Tensile Tester Relationship Specialty Start Date End Date Sierra Santos, [address] [place] [address] PCP - General Internal Medicine 11/12/20 Tensile Tester Relationship Specialty Start Date End Date José Luisnatyandresnaty Sierra, DO [address] [place] [address] PCP - General Internal Medicine 11/12/20 Tensile Tester Relationship Specialty Start Date End Date José Luiserrol Sierra, DO [address] [place] [address] PCP - General Internal Medicine 11/12/20 Tensile Tester Relationship Specialty Start Date End Date Danielle Sierra, DO [address] [place] [address] PCP - General Internal Medicine 11/12/20 Tensile Tester Relationship Specialty Start Date End Date Juanandresnaty Sierra DO [address] [place] [address] PCP - General Internal Medicine 11/12/20 Tensile Tester Relationship Specialty Start Date End Date Sierra Santos DO [address] [place] [address] PCP - General Internal Medicine 11/12/20 Tensile Tester Relationship Specialty Start Date End Date Juanandresnaty Sierra DO [address] [place] [address] PCP - General Internal Medicine 11/12/20 Tensile Tester Relationship Specialty Start Date End Date Sierra Santos, DO [address] [place] [address] PCP - General Internal Medicine 11/12/20 Tensile Tester Relationship Specialty Start Date End Date Sierra Santos, DO [address] [place] [address] PCP - General Internal Medicine 11/13/21 Tensile Tester Relationship Specialty Start Date End Date Sierra Santos DO [address] [place] [address] PCP - General Internal Medicine 11/12/20 Tensile Tester Relationship Specialty Start Date End Date Sierra Santos DO [address] [place] [address] PCP - General Internal Medicine 11/13/21 Tensile Tester Relationship Specialty Start Date End Date Sierra Santos DO [address] [place] [address] PCP - General Internal Medicine 11/12/20 Tensile Tester Relationship Specialty Start Date End Date Sierra Santos DO [address] [place] [address] PCP - General Internal Medicine 11/13/21 Tensile Tester Relationship Specialty Start Date End Date Sierra Santos DO [address] [facility] [place] [address] PCP - General 09/11/20 Sierra Santos DO [address] [place] [address] PCP - Imer O PCP 06/01/21 Tensile Tester Relationship Specialty Start Date End Date Sierra Santos DO [address] [place] [address] PCP - General Internal Medicine 11/12/20 Tensile Tester Relationship Specialty Start Date End Date Sierra Santos DO [address] [place] [address] PCP - General Internal Medicine 11/12/20 Tensile Tester Relationship Specialty Start Date End Date Sierra Santos DO [address] [place] [address] PCP - General 09/11/20 Sierra Santos DO [address] [place] [address] PCP - Imer GONZALEZO PCP 06/01/21 Sierra Santos DO [address] [place] [address] PCP - [facility] Medicaid PCP 08/30/22 Tensile Tester Relationship Specialty Start Date End Date Sierra Santos DO [address] [place] [address] PCP - General Internal Medicine 11/12/20 Tensile Tester Relationship Specialty Start Date End Date Sierra Santos DO [address] [place] [address] PCP - General Internal Medicine 11/12/20 Tensile Tester Relationship Specialty Start Date End Date Sierra Santos DO [address] [place] [address] PCP - General Internal Medicine 11/12/20 Tensile Tester Relationship Specialty Start Date End Date Sierra Santos DO [address] [place] [address] PCP - General Internal Medicine 11/12/20 Tensile Tester Relationship Specialty Start Date End Date Sierra Santos DO [address] [place] [address] PCP - General 09/11/20 Tensile Tester Relationship Specialty Start Date End Date José LuisSierra norton DO [address] [place] [address] PCP - General 09/11/20 Tensile Tester Relationship Specialty Start Date End Date Sierra Santos DO [address] [place] [address] PCP - General 09/11/20 Team Status: Active [...] End: November 10, 2024 Dr. Adelaida Burnett DO Attending Provider Activ e Start: November 10, 2024 End: November 10, 2024 Dr. Adelaida Burnett DO Referring Provider Activ e Start: November 10, [...] 2024 End: November 24, 2024 Team Status: Active Member Role/Relationship Status Dates No Primary Care Physician Primary Care Provider Active Team Status: Inactive Member Role/Relationship Status Dates No Primary Care Physician Primary Care Provider Active Start: August 29, 2024 End: August 29, 2024 Dr. Isabel Luz MD Attending Provider Active Start: August 29, 2024 End: August 29, 2024 Dr. Isabel Luz MD Referring Provider Active Start: August 29, 2024 End: August 29, 2024 Team Status: Active Member Role/Relationship Status Dates No Primary Care Physician Primary Care Provider Active Start: August 30, 2024 Dr. Isabel Luz MD Attending Provider Active Start: August 30, 2024 Dr. Isabel Luz MD Referring Provider Active Start: August 30, 2024 Dr. Isabel Luz MD Other Provider Active Start: August 30, 2024 Team Status: Inactive Member Role/Relationship Status Dates Luisa Curiel TIRE DEBEADER, TIRE DEBEADER-C Attending Provider Active Start: August 31, 2024 End: August 31, 2024 No Primary Care Physician Primary Care Provider Active Start: August 31, 2024 End: August 31, 2024 No Primary Care Physician Referring Provider Active Start: August 31, 2024 End: August 31, 2024 Team Status: Inactive Member Role/Relationship Status Dates Dr. Isabel Luz MD Attending Provider Active Start: September 28, 2024 End: September 28, 2024 No Primary Care Physician Primary Care Provider Active Start: September 28, 2024 End: September 28, 2024 No Primary Care Physician Referring Provider Active Start: September 28, 2024 End: September 28, 2024 Team Status: Inactive Member Role/Relationship Status Dates No Primary Care Physician Primary Care Provider Active Start: September 28, 2024 End: September 28, 2024 Dr. Isabel Luz MD Attending Provider Active Start: September 28, 2024 End: September 28, 2024 Dr. Isabel Luz MD Referring Provider Active Start: September 28, 2024 End: September 28, 2024 Team Status: Inactive Member Role/Relationship Status Dates Dr. Adelaida Burnett DO Attending Provider Activ e Start: October 26, 2024 End: October 26, 2024 No Primary Care Physician Primary Care Provider Active Start: October 26, 2024 End: October 26, 2024 No Primary Care Physician Referring Provider Active Start: October 26, 2024 End: October 26, 2024 Team Status: Inactive Member Role/Relationship Status Dates No Primary Care Physician Primary Care Provider Active Start: October 26, 2024 End: October 26, 2024 Dr. Adelaida Burnett DO Attending Provider Activ e Start: October 26, 2024 End: October 26, 2024 Dr. Adelaida Burnett DO Referring Provider Activ e Start: October 26, 2024 End: October 26, 2024 Team Status: Inactive Member Role/Relationship Status Dates Jocelyn Malcolm CNM Attending Provider Active S tart: November 10, 2024 End: November 10, 2024 No Primary Care Physician Primary Care Provider Active Start: November 10, 2024 End: November 10, 2024 No Primary Care Physician Referring Provider Active Start: November 10, 2024 End: November 10, 2024 Team Status: Inactive Member Role/Relationship Status Dates No Primary Care Physician Primary Care Provider Active Start: November 10, 2024 End: November 10, 2024 Dr. Adelaida Burnett DO Attending Provider Activ e Start: November 10, 2024 End: November 10, 2024 Dr. Adelaida Burnett DO Referring Provider Activ e Start: November 10, 2024 End: November 10, 2024 Team Status: Inactive Member Role/Relationship Status Dates Dr. Isabel Luz MD Attending Provider Active Start: November 24, 2024 End: November 24, 2024 No Primary Care Physician Primary Care Provider Active Start: November 24, 2024 End: November 24, 2024 No Primary Care Physician Referring Provider Active Start: November 24, 2024 End: November 24, 2024 Team Status: Inactive Member Role/Relationship Status Dates No Primary Care Physician Primary Care Provider Active Start: November 24, 2024 End: November 24, 2024 Dr. Adelaida Burnett , DO Attending Provider Activ e Start: November 24, 2024 End: November 24, 2024 Dr. Adelaida Burnett , DO Referring Provider Activ e Start: November 24, 2024 End: November 24, 2024 Team Status: Active Member Role/Relationship Status Dates No Primary Care Physician Primary Care Provider Active Start: December 07, 2024 Dr. Adelaida Burnett , DO Attending Provider Activ e Start: December 07, 2024 Dr. Adelaida Burnett , DO Referring Provider Activ e Start: December 07, 2024 Team Status: Inactive Member Role/Relationship Status Dates No Primary Care Physician Primary Care Provider Active Start: December 07, 2024 End: December 07, 2024 No Primary Care Physician Referring Provider Active Start: December 07, 2024 End: December 07, 2024 Luisa Curiel NP, TIRE DEBEADER-C Attending Provider Active Start: December 07, 2024 End: December 07, 2024 Team Status: Inactive Member Role/Relationship Status Dates No Primary Care Physician Primary Care Provider Active Start: December 07, 2024 End: December 07, 2024 Dr. Adelaida Burnett , DO Attending Provider Activ e Start: December 07, 2024 End: December 07, 2024 Dr. Adelaida Burnett , DO Referring Provider Activ e Start: December 07, 2024 End: December 07, 2024 Team Status: Inactive Member Role/Relationship Status Dates No Primary Care Physician Primary Care Provider Active Start: December 15, 2024 End: December 15, 2024 Dr. Adelaida Burnett , DO Attending Provider Activ e Start: December 15, 2024 End: December 15, 2024 Dr. Adelaida Burnett , DO Referring Provider Activ e Start: December 15, 2024 End: December 15, 2024 Team Status: Active Member Role/Relationship Status Dates No Primary Care Physician Primary Care Provider Active Start: December 15, 2024 Dr. Adelaida Burnett , DO Attending Provider Activ e Start: December 15, 2024 Dr. Adelaida Burnett , DO Referring Provider Activ e Start: December 15, 2024 DrArtemio Burnett DO Other Provider Active Start: December 15, 2024 Team Status: Inactive Member Role/Relationship Status Dates No Primary Care Physician Primary Care Provider Active Start: December 16, 2024 End: December 16, 2024 No Primary Care Physician Referring Provider Active Start: December 16, 2024 End: December 16, 2024 Dr. Adelaida Burnett , Attending Provider Activ e Start: December 16, 2024 End: December 16, 2024 <item><item> Privacy Markings (unrecogniz ed section [...] from all sources in 24 hours., Post-op/Post-Proc 7574 (Not Given - Provider: Cara Malcolm RN - Reason: Patient/family refused)2329 (Given - Provider: Hilda Ho RN) 0604 [...] Pt home med)1415 (Automatically Held - Provider: Jmiena Gracia DO) 0900 (Automatically Held - Provider: [...] 1206 ($$New Bag$$ - Provider: Lydia Gracia APRN-STUDENT DRIVING INSTRUCTOR) Enoxaparin Sodium (LOVENOX) injection 40 mg 40 mg, Subcutaneous, EVERY 12 HOURS, First dose on Misty 03/12/23 at 0900, Until Discontinued, Indications: DVT/PE prophylaxis, Post-op/Post-Proc 0938 (Given - Provider: Ethel Menjivar RN) Gabapentin (NEURONTIN) capsule 600 mg (COMPLETED) 600 mg, Oral, ONCE, 1 dose, On Thu03/11/23 at 1030, With a sip of water on arrival to [facility], Pre-op/Pre-Proc 1105 (Given - Provider: Sarah Gracia [...] Ho RN) 023 (Given - Provider: Hilda Ho RN)0938 (Given - Provider: Ethel Menjivar RN)1437 (Given - Provider: Ethel Menjivar RN) Metoprolol succinate (TOPROL-XL) tablet XL 50 mg 50 mg, Oral, DAILY, First dose on Thu03/11/23 at 1800, Until Discontinued, Slow release product. Do not crush. Extended release can be cut in half., Post-op/Post-Proc 184 (Given - Provider: Jocelyn Kee RN) Ondansetron 4mg/2ml (ZOFRAN) injection 4 mg 4 mg, Intravenous, EVERY 6 HOURS NON-STANDARD, First dose on Thu03/11/23 at 2000, Until Discontinued, Post-op/Post-Proc 2038 (Given - Provider: Hilda Ho RN) 023 (Given - Provider: Hilda Ho RN)0938 (Given - Provider: Ethel Menjivar RN)1437 (Given - Provider: Ethel Menjivar RN) Pantoprazole (PROTONIX) injection 40 mg 40 mg, Intravenous, DAILY, First dose on Thu03/11/23 at 1415, Until Discontinued, Dilute each 40 mg vial with 10 mL of NS. All bolus doses, whether 40 mg or 80 mg, should be administered over at least two minutes., Indications: Inpt Stress Ulcer Prophylaxis, Post-op/Post-Proc 1454 (Given - Provider: Ella Cox, RN) 0938 (Given - Provider: Ethel Menjivar, ROJELIO) Scopolamine (TRANSDERM-SCOP) patch 1 patch (CANCELED)(Linked Group 1) 1 patch, Transdermal, ONCE, 1 dose, On Thu03/11/23 at 1030, Behind ear upon arrival to [facility]. , Pre-op/Pre-Proc 1105 (Patch Applied - Provider: [...] RN)0952 (Rate/Dose Verify - Provider: Ethel Menjivar, RN)1425 (Stopped - Provider: Ethel Menjivar, ROJELIO) Lactated [...] Misty 03/12/23 at 1652, Severe Pain, Post-op/Post-Proc 2038 (See Alternative - Provider: Hilda Ho RN) [...] at 1030
Behind ear upon arrival to [facility].
Pre-op/Pre-Proc And VERIFY LINKED PATCH PLACEMENT (CANCELED) [...] BE BASED ON THE PRIMARY CLINICAL RECORDS. [facility]. provides no warranty or guarantee of the accuracy or completeness of information in this document.
[2024-12-20] MEDS: Oxytocin 15 Units/NS 250ml 15 UNITS/250 ML IV.SOLN 334 UNITS IV (22:46)
--- NOTE | 2024-12-20 22:49 | HP.PCM.OB_ITS ---
HPI - General General Date of Admission: 12/20/24 HPI Narrative AYE ZHANG, is a 29 F who presents with decreased movement since yesterday, known IUGR. she preivously was breech and is now vertex on ultrasound. she had clear and blood tinged loss of fluid since thursday, i ncreased today, but had a negative rom. Maternal Data Information DOMONIQUE Calculator Estimated Delivery Date Method Current WG Current Estimate 01/06/25 LMP (Certain) 37w 4d [facility] Medical History (Updated 12/20/24 @ 22:[address] Isabel Luz MD) Shoulder dystocia during labor and delivery IUGR (intrauterine growth restriction) Tachycardia Pre-eclampsia Hx of abnormal cervical Pap smear Asthma Home Medications ?Medication ?Instructions ?Recorded ?Last Taken ?Type multivit-min no.71-iron fum 28 1 cap PO DAILY 06/09/24 12/16/24 07:00 History mg-folate no.1 1 mg-dha 300 mg 1 cap capsule (PNV-[place]unction) blood sugar diagnostic (Accutrend #50 ea 10/26/24 Unkn own Rx Glucose test strips) blood-glucose meter (Accu-Chek #1 ea 10/26/24 Unknown Rx Guide Glucose Meter) lancets 23 gauge (Acti-Montrell #100 ea 10/26/24 Unknown Rx Lancets) bupropion HCl 300 mg 24 hr tablet, 300 mg PO DAILY anx iety 12/20/24 11/29/24 Hi story extended release metoprolol succinate 50 mg 50 mg PO DAILY tachycardia 12/20/24 11/29/24 History tablet,extended release 24 hr Allergy/AdvReac Type Severity Reaction Status Date / Time morphine Allergy Intermediate Hives Verified 12/20/24 14:13 Family History Grandmother Cancer Maternal- Pancreatic ca Grandmother Breast cancer, Onset Age: 40 Paternal Mother Cancer, Onset Age: 30 cervical Surgical History H/O dilation and curettage History of surgical removal of ganglion cyst S/P tendon repair H/O gastric sleeve Social History adopted: No household members: significant other and children number of children: 3 current occupational status: employed 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 [employer] pets and animals: No history of recent travel: No sexually active: Yes Smoking Status: Never smoker alcohol intake: never substance use type: does not use well-balanced diet: daily or most days caffeine: No eating out: 1-3 times/week during the past year weight has: decreased > 10 lbs what type of physical activity do you participate in: none lupis/synagogue: None seatbelt use: sometimes do you feel safe at home: Yes additional social history: Boyfriend- Gretchen- Works at the [employer] History 4 Elective abortions Hx Para 3 Spontaneous abortions Hx # Term Pregnancies Ectopic pregnancies Hx # Pregnancies Multiple births # of living children 3 Past Pregnancies Del. Date Name GA/Weeks Outcome Route Bth Weight Infant Gen Labor Lgth Anesthesia Del Locatn Provider FOB 08/21/16 [place] 39 live - full term 9# Female epidural [facility] Dr. Aaron Almanza 05/05/19 [place] 39 live - full term 8#1oz Male none [facility] Dr. Castillo Almanza 06/06/20 [place] 38 live - full term 9#6oz Male [facility] Dr. aCstillo Almanza Delivery Date: 05/05/19 Last Updated by: Christy Diaz shoulder dystocia Visit Details Expected Delivery Route/Plan Labor Preferences- CB/BF classes: no labor support person: Gretchen labor intervention preferences: [] pain management options preferred: epidural cut cord/dad catch: cord : yes PP control planned: [] discussed possible routes of delivery and associated risks: [] special requests: [] Plans Covid status: [] Flu vaccine: [] Tdap vaccine: given Rhogam: NA LARC form signed: yes Problem list reviewed and updated with the most current plan of care details and appropriate orders placed. Relevant counseling for the gestational age provided. Continue routine care and follow up unless otherwise noted in visit notes/problem list details OB Flowsheet Initial Weight: 203 lb Date -?-?-?-?-?-?-?-?-?-?-?-?- EGA Weight BP Urine Prot -?-?-?-?-?-?-?-?-?-?-?-?- Glucose FHR FuHt Pres Dilation -?-?-?-?-?-?-?-?-?-?-?-?- Effaced St Visit Note 06/09/24 -?-?-?-?-?-?-?-?-?-?-?-?- 9w 6d 203 lb (+0 oz) 111/73 -?-?-?-?-?-?-?-?-?-?-?-?- 175 -?-?-?-?-?-?-?-?-?-?-?-?- KW- CRL cons wit h dates. declines NIPT. on Metoprolol for elevated HR-sees cardiology PRN. 07/11/24 -?-?-?-?-?-?-?-?-?-?-?-?- 14w 3d 203 lb (+0 oz) 97/63 Negative -?-?-?-?-?-?-?-?-?-?-?-?- Negative 160 -?-?-?-?-?-?-?-?-?-?-?-?- JV- pt still nee ds new ob labs. states got them at Dr. Walker's office before she came to us. Has h/o shoulder dystocia so will need a hga1c. she will sign another ror form and if do not get it by next visit will need to do all labs again. no other complaints. declines nipt. anatomy scan ordered. 08/04/24 -?-?-?-?-?-?-?-?-?-?-?-?- 17w 6d 208 lb (+5 lb) 95/50 Negative -?-?-?-?-?-?-?-?-?-?-?-?- Negative 150 -?-?-?-?-?-?-?-?-?-?-?-?- SM- no vb lof go od fm no reuglar ctx SM- no vb no reuglar ctx 08/31/24 -?-?-?-?-?-?-?-?-?-?-?-?- 21w 5d 214 lb 4 oz (+11 lb 4 oz) 102/64 Negative -?-?-?-?-?-?-?-?-?-?-?-?- Negative 160 -?-?-?-?-?-?-?-?-?-?-?-?- MH-Seen WP 08/29 for vag bleeding. Still with some brown discharge. No cramping. Good FM. Cervix was friable on 08/29:cultures still pending. Low lying placenta-US sched at 28 wk. Pelvic rest. Reviewed bleeding precautions 09/28/24 -?-?-?-?-?-?-?-?-?-?-?-?- 25w 5d 223 lb (+20 lb) 103/69 -?-?-?-?-?-?-?-?-?-?-?-?- 150 -?-?-?-?-?-?-?-?-?-?-?-?- Sm- no vb lof go od fm no regular ctx 10/26/24 -?-?-?-?-?-?-?-?-?-?-?-?- 29w 5d 225 lb 4 oz (+22 lb 4 oz) 109/75 Negative -?-?-?-?-?-?-?-?-?-?-?-?- Negative 153 31 -?-?-?-?-?-?-?-?-?-?-?-?- JV- still spotti ng after intercourse. no loss of fluid or dec fm. recommemd refrain from sex, keep MFM scan at 32 weeks. SHe is unable to hold down iron. b12 and iron studies ordered for h/o bariatric surgery. checking fasting glucose levels for next couple of weeks as unable to do glucola. JV- still spotting after int ercourse. no loss of fluid or dec fm. recommemd refrain from sex, keep MFM scan at 32 weeks. SHe is unable to hold down iron. b12 and iron studies ordered for h/o bariatric surgery. checking fasting glucose levels for next couple of weeks as unable to do glucola. tdap today 11/10/24 -?-?-?-?-?-?-?-?-?-?-?-?- 31w 6d 225 lb 4 oz (+22 lb 4 oz) 105/68 Trace -?-?-?-?-?-?-?-?-?-?-?-?- Negative 150 32 -?-?-?-?-?-?-?-?-?-?-?-?- kw- no vb/lof/ct x. good fm. has scan next week. LARC today 11/24/24 -?-?-?-?-?-?-?-?-?-?-?-?- 33w 6d 230 lb 4 oz (+27 lb 4 oz) 105/66 Negative -?-?-?-?-?-?-?-?-?-?-?-?- Negative 140 34 -?-?-?-?-?-?-?-?-?-?-?-?- SM- no vb lof go od fm another venofer infusion today 12/07/24 -?-?-?-?-?-?-?-?-?-?-?-?- 35w 5d 232 lb 8 oz (+29 lb 8 oz) 116/72 Negative -?-?-?-?-?-?-?-?-?-?-?-?- Negative 133 36 -?-?-?-?-?-?-?-?-?-?-?-?- MH-No VB, LOF. G ood FM. completed 3rd venofer today. No CTX 12/15/24 -?-?-?-?-?-?-?-?-?-?-?-?- 36w 6d 231 lb 7.766 oz (+28 lb 7.766 oz) -?-?-?-?-?-?-?-?-?-?-?-?- 130 Cephalic 3 -?-?-?-?-?-?-?-?-?-?-?-?- 40 -3 JV- ob tri age. see note. gbs collected in triage 12/16/24 -?-?-?-?-?-?-?-?-?-?-?-?- 37w 0d 232 lb 4 oz (+29 lb 4 oz) 119/72 Negative -?-?-?-?-?-?-?-?-?-?-?-?- Negative 134 37 Breech 3 -?-?-?-?-?-?-?-?-?-?-?-?- 40 -4 JV- baby f lipped overnight from vtx to breech. she is deciding on an ECF. wants tubal if needs a section. title 19 signed 11/18/2024. if has persistent dec fm with IUGR will recommend delivery next week. nst yesterday reactive and bpp yesterday was 01/06. NST FHR Rate Baby A Baseline: 140 Variability:: Moderate Accelerations:: 15 x 15 Decelerations:: Variable (mild episodic) NST Reactive:: Yes FHR Category:: Category II Uterine Activity:: irregular ROS Constitutional Constitutional: Reports systems reviewed and no addt'l complaints, except as documented Eyes Eyes: Denies change in vision ENT HEENT: Reports systems reviewed and no addt'l complaints, except as documented; Denies headache(s) Cardiovascular Cardiovascular: Reports systems reviewed and no addt'l complaints, except as documented; Denies chest pain or dyspnea Respiratory/Chest Respiratory/Chest: Reports systems reviewed and no addt'l complaints, except as documented Gastrointestinal Gastrointestinal: Reports systems reviewed and no addt'l complaints, except as documented; Denies abdominal pain Genitourinary Genitourinary: Reports systems reviewed and no addt'l complaints, except as documented, contractions Details: present (irregular) and movement Details: present; Denies dysuria or genital lesions Musculoskeletal Musculoskeletal: Reports systems reviewed and no addt'l complaints, except as documented Neurologic Neurologic: Reports systems reviewed and no addt'l complaints, except as documented Endocrine Endocrinology: Reports systems reviewed and no addt'l complaints, except as documented Vital Signs Vital Signs Vital Signs: 12/20/24 14:22 12/20/24 14:22 12/20/24 14:23 Temperature Temperature Source Pulse Rate 76 Respiratory Rate Blood Pressure 129/79 H BP Systolic 129 BP Diastolic 79 Pulse Ox 97 12/20/24 14:23 12/20/24 14:23 12/20/24 14:23 Temperature Temperature Source Temporal Pulse Rate 74 Respiratory Rate 16 Blood Pressure BP Systolic BP Diastolic Pulse Ox 12/20/24 14:23 12/20/24 16:06 12/20/24 16:06 Temperature 98.8 F Temperature Source Pulse Rate 76 Respiratory Rate Blood Pressure 125/66 H BP Systolic 125 BP Diastolic 66 Pulse Ox 12/20/24 16:06 12/20/24 16:06 12/20/24 16:06 Temperature Temperature Source Temporal Pulse Rate Respiratory Rate 14 Blood Pressure BP Systolic BP Diastolic Pulse Ox 97 12/20/24 16:06 12/20/24 17:29 12/20/24 17:29 Temperature 99.0 F Temperature Source Pulse Rate 81 Respiratory Rate Blood Pressure 106/67 BP Systolic 106 BP Diastolic 67 Pulse Ox 12/20/24 17:29 12/20/24 17:29 12/20/24 17:29 Temperature 97.5 F L Temperature Source Pulse Rate Respiratory Rate 16 Blood Pressure BP Systolic BP Diastolic Pulse Ox 99 12/20/24 18:48 12/20/24 18:48 12/20/24 18:48 Temperature Temperature Source Temporal Pulse Rate 80 Respiratory Rate Blood Pressure 120/72 BP Systolic 120 BP Diastolic 72 Pulse Ox 12/20/24 18:48 12/20/24 18:48 12/20/24 18:48 Temperature 98.3 F Temperature Source Pulse Rate Respiratory Rate 16 Blood Pressure BP Systolic BP Diastolic Pulse Ox 98 12/20/24 19:14 12/20/24 19:42 12/20/24 19:42 Temperature Temperature Source Pulse Rate 78 Respiratory Rate 17 Blood Pressure 128/78 H BP Systolic 128 BP Diastolic 78 Pulse Ox 12/20/24 19:42 12/20/24 19:42 12/20/24 20:38 Temperature 97.6 F L Temperature Source Pulse Rate 99 Respiratory Rate 17 Blood Pressure BP Systolic BP Diastolic Pulse Ox 12/20/24 20:38 12/20/24 20:39 12/20/24 20:39 Temperature Temperature Source Pulse Rate 102 H Respiratory Rate Blood Pressure 138/80 H BP Systolic 138 BP Diastolic 80 Pulse Ox 99 12/20/24 20:39 12/20/24 20:43 12/20/24 20:43 Temperature Temperature Source Pulse Rate 79 Respiratory Rate 17 Blood Pressure 129/63 H BP Systolic 129 BP Diastolic 63 Pulse Ox 12/20/24 20:43 12/20/24 20:43 12/20/24 20:48 Temperature Temperature Source Pulse Rate 80 Respiratory Rate 16 Blood Pressure BP Systolic BP Diastolic Pulse Ox 100 12/20/24 20:48 12/20/24 20:49 12/20/24 20:49 Temperature Temperature Source Pulse Rate 73 Respiratory Rate Blood Pressure 131/68 H BP Systolic 131 BP Diastolic 68 Pulse Ox 100 12/20/24 20:49 12/20/24 20:53 12/20/24 20:53 Temperature Temperature Source Pulse Rate 81 Respiratory Rate 17 Blood Pressure 125/66 H BP Systolic 125 BP Diastolic 66 Pulse Ox 12/20/24 20:53 12/20/24 20:58 12/20/24 20:58 Temperature Temperature Source Pulse Rate 79 Respiratory Rate Blood Pressure 122/60 H BP Systolic 122 BP Diastolic 60 Pulse Ox 100 12/20/24 20:58 12/20/24 20:58 12/20/24 20:58 Temperature Temperature Source Pulse Rate 78 Respiratory Rate 17 Blood Pressure BP Systolic BP Diastolic Pulse Ox 99 12/20/24 21:03 12/20/24 21:03 12/20/24 21:04 Temperature Temperature Source Pulse Rate 85 Respiratory Rate Blood Pressure 123/62 H BP Systolic 123 BP Diastolic 62 Pulse Ox 99 12/20/24 21:04 12/20/24 21:04 12/20/24 21:08 Temperature Temperature Source Pulse Rate 74 74 Respiratory Rate 17 Blood Pressure BP Systolic BP Diastolic Pulse Ox 12/20/24 21:08 12/20/24 21:10 12/20/24 21:10 Temperature Temperature Source Pulse Rate 70 Respiratory Rate Blood Pressure 97/54 L BP Systolic 97 BP Diastolic 54 Pulse Ox 99 12/20/24 21:10 12/20/24 21:13 12/20/24 21:13 Temperature Temperature Source Pulse Rate 74 Respiratory Rate 16 Blood Pressure 99/49 L BP Systolic 99 BP Diastolic 49 Pulse Ox 12/20/24 21:13 12/20/24 21:13 12/20/24 21:18 Temperature Temperature Source Pulse Rate 69 Respiratory Rate 16 Blood Pressure BP Systolic BP Diastolic Pulse Ox 99 12/20/24 21:18 12/20/24 21:19 12/20/24 21:19 Temperature Temperature Source Pulse Rate 96 Respiratory Rate Blood Pressure 110/69 BP Systolic 110 BP Diastolic 69 Pulse Ox 100 12/20/24 21:19 12/20/24 21:51 12/20/24 21:51 Temperature Temperature Source Pulse Rate 76 Respiratory Rate 16 Blood Pressure 117/62 BP Systolic 117 BP Diastolic 62 Pulse Ox 12/20/24 21:52 12/20/24 21:52 12/20/24 21:52 Temperature 97.0 F L Temperature Source Temporal Pulse Rate Respiratory Rate 16 Blood Pressure BP Systolic BP Diastolic Pulse Ox Weight Weight: 232 lb Body Mass Index (BMI) 37.4 Physical Exam Const alert, oriented x3, no apparent distress and healthy appearing HEENT normocephalic and moist oral mucous membranes Head and Scalp: atraumatic Neck full ROM, no lymphadenopathy, supple and thyroid normal General: trachea midline Lymph Lymphatic: no lymphadenopathy noted Chest inspection of chest normal Resp normal respiratory effort Cardio regular rate GI soft to palpation and non-tender GI Narrative: gravid Inspection: gravid external exam normal Manual OB Exam: estimated gestational size appropriate, presentation cephalic, dilated, effaced and station Extremity normal to inspection General Extremity: Negative for edema Skin no rashes or lesions noted Neuro no focal motor deficits and deep tendon reflexes 2+ bilaterally Motor Exam: strength 5/5 throughout and clonus absent Psych mental status grossly normal Labs Labs Labs: Blood Type A POSITIVE Antibody Screen NEGATIVE Hct 33.2 % (37-47) L Hgb 10.8 g/dL (12.0-15.0) L Obstetrics Ultrasound Syphilis Total Ab Nonreactive (Nonreactive) Rubella IgG Antibody REAC (Nonreactive) Hep Bs Antigen Nonreactive (Nonreactive) Hepatitis C Antibody Nonreactive (Nonreactive) Chlamydia DNA (TIFFANIE) Negative (Negative) N.gonorrhoeae DNA (TIFFANIE) Negative (Negative) HIV 1&2 Antibody Nonreactive (Nonreactive) Glucose 1 Hr 50 gm 95 mg/dL (70-140) Assessment & Plan (1) Decreased movements in third trimester: (2) Variable deceleration: (3) IUGR (intrauterine growth restriction) affecting care of mother: COMMENT: ac less than 10th. plan twice weekly testing. deliver 39 weeks unless abnormal dopplers. (4) Anemia affecting : QUALIFIERS: Trimester: third trimester Qualified Code(s): O99.013 - Anemia complicating , third trimester COMMENT: iv venofer (5) History of bariatric surgery: COMMENT: sleeve 03/23. Growth scan every 4 weeks. (6) Exposure to parvovirus: (7) Anemia in preg-unspec: QUALIFIERS: Trimester: second trimester Qualified Code(s): O99.012 - Anemia complicating , second trimester COMMENT: add fe (8) Tachycardia: COMMENT: sees cardiology. on Metoprolol (9) Obesity affecting : QUALIFIERS: Trimester: second trimester Obesity type affecting : unspecified obesity Qualified Code(s): O99.212 - Obesity complicating , second trimester COMMENT: HgbA1c (10) Supervision of high-risk : QUALIFIERS: Trimester: second trimester Qualified Code(s): O09.92 - Supervision of high risk , unspecified, second trimester COMMENT: negative GBS PRR, , DOMONIQUE 01/06/25, PC Rolando Vasques Rowan BF Jyothi (11) : QUALIFIERS: Weeks of gestation: 37 weeks Qualified Code(s): Z3A.37 - 37 weeks gestation of COMMENT: gbs negative. declined NIPT & Carrier testing, nl anatomy (12) H/O shoulder dystocia in prior , currently : COMMENT: 2nd 8 lbs, had other bigger babies. that was an IOL. mild (13) Encounter for induction of labor: PLAN: Plan no vertex, rom plus negative- recommend keeping and IOL due to IUGR with decresaed movement and variable decel seen. now overall cat I tracing. plan pitocin.
--- NOTE | 2024-12-20 22:53 | EX.PCM.OBVAG ---
Assessment & Plan (1) Encounter for induction of labor: (2) Decreased movements in third trimester: (3) Variable deceleration: (4) IUGR (intrauterine growth restriction) affecting care of mother: COMMENT: ac less than 10th. plan twice weekly testing. deliver 39 weeks unless abnormal dopplers. (5) Anemia affecting : QUALIFIERS: Trimester: third trimester Qualified Code(s): O99.013 - Anemia complicating , third trimester COMMENT: iv venofer (6) Exposure to parvovirus: (7) History of bariatric surgery: COMMENT: sleeve 03/23. Growth scan every 4 weeks. (8) Anemia in preg-unspec: QUALIFIERS: Trimester: second trimester Qualified Code(s): O99.012 - Anemia complicating , second trimester COMMENT: add fe (9) Tachycardia: COMMENT: sees cardiology. on Metoprolol (10) Obesity affecting : QUALIFIERS: Trimester: second trimester Obesity type affecting : unspecified obesity Qualified Code(s): O99.212 - Obesity complicating , second trimester COMMENT: HgbA1c (11) Supervision of high-risk : QUALIFIERS: Trimester: second trimester Qualified Code(s): O09.92 - Supervision of high risk , unspecified, second trimester COMMENT: negative GBS PRR, , DOMONIQUE 01/06/25, Rolando Henry Rowan BF Jyothi (12) : QUALIFIERS: Weeks of gestation: 37 weeks Qualified Code(s): Z3A.37 - 37 weeks gestation of COMMENT: gbs negative. declined NIPT & Carrier testing, nl anatomy (13) H/O shoulder dystocia in prior , currently : COMMENT: 2nd 8 lbs, had other bigger babies. that was an IOL. mild (14) Vaginal delivery: COMMENT: SM IOL IUGR dec fm 37 boy Maternal Data Information DOMONIQUE Calculator Estimated Delivery Date Method Current WG Current Estimate 01/06/25 LMP (Certain) 37w 4d Vaginal Delivery Maternal Presentation Maternal Presentation: see assessment and plan Vaginal Delivery Information Surgeon/Practitioner: Isabel Luz Date of Procedure: 12/20/24 Type of anesthesia: Epidural Findings Description of procedure: Patient began pushing and delivered the head in the CONNIE presentation. The head was delivered atraumatically and loose nc x 2 infant delivered through. The anterior and posterior shoulders delivered without complication followed by the rest of the infant and the infant was placed on the maternal abdomen. Delayed cord clamping was employed for approximately 60 seconds. Cord was clamped and cut and gentle traction was applied to the cord and the placenta delivered spontaneously immediately following it was noted to be intact with three-vessel cord. The perineum and vagina were inspected and noted to have no laceration. EBL was 100 cc. Patient and infant tolerated delivery well. Presentation: Vertex Placental Delivery Description: Spontaneous Specimen collected: Yes Description of specimen(s) removed: placenta Robotics Software Engineer domain architect: No Post Vaginal Deli Medications given after delivery: Other (pitocin) Complication Complications: No Multi Select Codes Urinary/Genital Urinary/Genital CPT Codes: 11925 Vaginal Delivery+ PP Care([facility])
--- NOTE | 2024-12-20 22:54 | PCM.DC ---
Discharge Instructions DC O2, CPAP, BIPAP needs Home O2 Discharge instructions: No Dressing / Incision Discharge Activity: Return to Normal Activity, May Not Drive (while taking narcotic pain medications.) and May Shower May resume sexual activity in: 4-6 weeks Dressing / Incision Call your doctor if your incision/area has: Continuous Slow Oozing, Sudden Increased Bleeding, Increased Pain/ Swelling, Increased Redness and Foul Smelling Discharge Follow Up Care Please Follow Up With: Isabel Luz MD When: Call [phone] to make an appointment with your doctor in 6 weeks. If you had elevated blood pressure or 4th degree laceration, you will need to be seen in 2 weeks. Test Results: Test results from this visit will be discussed in further detail at your follow-up appointment, if applicable. Discharge Plan Admission Admit Date/Time: 12/20/24 14:40 Attending Provider: Isabel Luz Primary Care Provider: Victor Manuel PhysicianAna Primary Discharge Orders/Prescriptions Prescriptions: No Action P[facility]-[place] 28-1-300 mg capsule 1 cap PO DAILY (DME) Accutrend Glucose test strips Strip See Rx Instructions .Route Qty: 50 0RF Rx Instructions: As directed (DME) Acti-Montrell Lancets 23 gauge misc See Rx Instructions .Route Qty: 100 0RF Rx Instructions: As directed (DME) blood-glucose meter [Accu-Chek Guide Glucose Meter] Misc See Rx Instructions .Route Qty: 1 0RF Rx Instructions: As directed check sugar levels (fasting) in the morning metoprolol succinate 50 mg tablet extended release 24 hr 50 mg PO DAILY bupropion HCl 300 mg tablet extended release 24 hr 300 mg PO DAILY Referrals / Follow Up: Care Physician,No Primary [Primary Care Provider] -
[2024-12-20] MEDS: Oxytocin 15 Units/NS 250ml 15 UNITS/250 ML IV.SOLN 83 UNITS IV (23:20)
[2024-12-21] VITALS (22 sets, daily range): BP systolic 93–126; BP diastolic 53–73; PULSE 60–86; RESP 16–18; TEMP 36.2–37.2; O2SAT 93–100
--- NOTE | 2024-12-21 06:11 | PCM.PN.OB ---
Subjective Subjective Patient doing well without complaints. Tolerating PO. Ambulating and voiding without difficulty. feeding well. Denies chest pain, shortness of breath, calf pain/swelling, fevers, chills, lightheadedness. Objective Data Objective Data Vital Signs: Vital Signs Temp Pulse Resp BP Pulse Ox O2 Del Method 97.6 F L 86 16 101/53 L 97 Room Air 12/21/24 03:33 12/21/24 03:33 12/21/24 03:33 12/21/24 03:33 12/21/24 03:33 12/21/24 03:33 Oxygen Delivery Method Room Air Weight: 232 lb Body Mass Index (BMI) 37.4 Intake & Output: Intake and Output for Last 24 Hours 12/19/24 12/20/24 12/21/24 23:59 23:59 23:59 Intake Total 1966.11 / 1966.11 250 / 250 Output Total 500 / 500 200 / 200 Balance 1466.11 / 1466.11 50 / 50 Lab / Micro Data 12/20/24 15:35 Labs: Laboratory Results - last 24 hr 12/20/24 14:15: Vag Amniotic Fld Detect Negative 12/20/24 15:35: WBC 9.4, RBC 3.75 L, Hgb 10.8 L, Hct 33.2 L, MCV 88.5, MCH 28.8, MCHC 32.5, RDW Std Deviation 57.7 H, RDW Coeff of Ingrid 18.0 H, Plt Count 209, MPV 10.6, Immature Gran % (Auto) 0.300, Neut % (Auto) 69.4, Lymph % (Auto) 22.3, Wake % (Auto) 6.9, Eos % (Auto) 0.9, Baso % (Auto) 0.2, Absolute Neuts (auto) 6.5, Absolute Lymphs (auto) 2.09, Nucleated RBC % 0, Syphilis Total Ab Nonreactive, Blood Type A POSITIVE, Antibody Screen NEGATIVE ROS Constitutional Constitutional: Reports systems reviewed and no addt'l complaints, except as documented Cardiovascular Cardiovascular: Reports systems reviewed and no addt'l complaints, except as documented Respiratory/Chest Respiratory/Chest: Reports systems reviewed and no addt'l complaints, except as documented Gastrointestinal Gastrointestinal: Reports systems reviewed and no addt'l complaints, except as documented Physical Exam Const alert, oriented x3 and no apparent distress HEENT Head and Scalp: atraumatic Resp normal respiratory effort GI soft to palpation and non-tender Bimanual Exam - Vag & Uterus: uterus non-tender Uterus Palpation: uterus fundus firm (below Umbilicus) Assessment & Plan (1) Vaginal delivery: COMMENT: SM IOL IUGR dec fm 37 boy PLAN: Plan s/p PPD # 1 1. routine post delivery care 2. breast feeding- support given 3. rh positive 4. rubella immune
[2024-12-21] MEDS: buPROPion (XL) 300 MG TABLET.XL PO (10:26)
[2024-12-21] MEDS: Metoprolol(XL)Succ 50 MG Tablet PO (10:27)
[2024-12-22 02:40] VITALS: BP 104/66; PULSE 63; RESP 14; TEMP 36.2; O2SAT 98
--- NOTE | 2024-12-22 07:31 | PN.OBGYN_ITS ---
Subjective Subjective Patient doing well without complaints. Tolerating PO. Ambulating and voiding without difficulty. feeding well. Denies chest pain, shortness of breath, calf pain/swelling, fevers, chills, lightheadedness. Objective Data Objective Data Vital Signs: Vital Signs Temp Pulse Resp BP Pulse Ox O2 Del Method 97.2 F L 63 14 104/66 98 Room Air 12/22/24 02:40 12/22/24 02:40 12/22/24 02:40 12/22/24 02:40 12/22/24 02:40 12/22/24 02:40 Oxygen Delivery Method Room Air Weight: 232 lb Body Mass Index (BMI) 37.4 Intake & Output: Intake and Output for Last 24 Hours 12/20/24 12/21/24 12/22/24 23:59 23:59 23:59 Intake Total 1966.11 / 1966.11 250 / 250 Output Total 500 / 500 200 / 200 Balance 1466.11 / 1466.11 50 / 50 Lab / Micro Data 12/20/24 15:35 Labs: Laboratory Results - last 24 hr 12/20/24 14:15: Vag Amniotic Fld Detect Negative 12/20/24 15:35: WBC 9.4, RBC 3.75 L, Hgb 10.8 L, Hct 33.2 L, MCV 88.5, MCH 28.8, MCHC 32.5, RDW Std Deviation 57.7 H, RDW Coeff of Ingrid 18.0 H, Plt Count 209, MPV 10.6, Immature Gran % (Auto) 0.300, Neut % (Auto) 69.4, Lymph % (Auto) 22.3, [place] % (Auto) 6.9, Eos % (Auto) 0.9, Baso % (Auto) 0.2, Absolute Neuts (auto) 6.5, Absolute Lymphs (auto) 2.09, Nucleated RBC % 0, Syphilis Total Ab Nonreactive, Blood Type A POSITIVE, Antibody Screen NEGATIVE ROS Constitutional Constitutional: Reports systems reviewed and no addt'l complaints, except as documented Cardiovascular Cardiovascular: Reports systems reviewed and no addt'l complaints, except as documented Respiratory/Chest Respiratory/Chest: Reports systems reviewed and no addt'l complaints, except as documented Gastrointestinal Gastrointestinal: Reports systems reviewed and no addt'l complaints, except as documented Physical Exam Const alert, oriented x3 and no apparent distress HEENT Head and Scalp: atraumatic Resp normal respiratory effort GI soft to palpation and non-tender Bimanual Exam - Vag & Uterus: uterus non-tender Uterus Palpation: uterus fundus firm (below Umbilicus) Assessment & Plan (1) Vaginal delivery: COMMENT: SM IOL IUGR dec fm 37 boy PLAN: Plan s/p PPD # 2 1. routine post delivery care 2. breast feeding- support given 3. rh positive 4. rubella immune
[2024-12-22 08:50] VITALS: BP 120/71; PULSE 69; RESP 16; TEMP 36.9; O2SAT 99
--- NOTE | 2024-12-22 09:26 | CASEMGMT ---
Social Work Assessment Labor and Delivery Unit Patient Address: [address] [place] [address] Phone number: [phone] Date of Referral: 12/20/24 Time of Referral:? 152 Referred By: Dr. Luz Date of Intervention: ?12/21/24? Time of Intervention:? 152 Reason for Referral:? mom is an alcoholic Sw completed chart review and acknowledges social work consult. Sw presented to bedside and introduced self to mother of baby (MOB- Carrie) and father of baby (FOB- Gretchen Hernandez). Sw explained reason for sw involvement and completed psychosocial assessment. History obtained from: medical records, MOB and FOB Household composition: Currently residing in the family home is CANDICE, MIKAYLA, CANDICE's three older children from a former relationship: Layo (8), Rolando (5) and Melissa (4). [place] baby to be included in residence when ready for discharge. Parents deny any problems or concerns with residence stating that it is safe and secure. Patient's parent/guardian status:? CANDICE states that she and MIKAYLA met at [employer] where they are both currently attending and have been together for one year. baby is first baby for MOB and MIKAYLA together. No concerns reported of domestic violence or intimate partner violence. ? Medical History: ?CANDICE is 29 year old female who is 4, para 3- now 4 following labor and delivery of . CANDICE received routine care during with [facility]. CANDICE presented to hospital for induction of labor and delivered baby via vaginal delivery at 37 weeks gestation on 12/20/24. Baby boy, unnamed at this time, was born weighing 6lbs and had apgars of 8 and 9 at one and five minutes of life, respectfully. CANDICE is breast feeding and states that baby will be followed by Dr. Cullen for pediatrics. Educational Status:? Both parents graduated from high school, and are currently attending college at [employer]. No problems with reading, learning or comprehension. Financial Status: Both parents are also currently employed outside of the home. FOB works at the [employer] press department manager outside of classes, and CANDICE works at a Home Health [employer] company. Supplies:??All necessary baby supplies obtained, including: car seat, safe sleep space, clothes, diapers and wipes. Childcare/Caregiver(s):?MOB will be the primary caregiver to baby along with MIKAYLA when he is not working or in class. When both parents are working CANDICE states that she has a best friend who will be able to help with childcare. Transportation:?? Both parents have their drivers license and reliable means of transportation, no barriers at this time. Programs/Agencies Involved: CANDICE is connected to community resources provided through [employer]: insurance and SNAP food benefits, and WIC. ??? Children Services/Legal Issues:?CANDICE denies history of children services, no issues or concerns warranting need for referral at this time. ?? Behavioral Health Issues: ??Mental Health History: MIKAYLA denies mental health history. CANDICE states that she has history of anxiety, but denies every experiencing depression or anxiety following the delivery of her other children. CANDICE states that she is currently prescribed Wellbutrin to help her manage her anxiety symptoms. CANDICE denies being connected to any mental health community resources, she states that her primary care provider prescribes her Wellbutrin. ??? Substance Use History:?CANDICE denies substance use prior to and during . Emil encouraged CANDICE to utilize healthy and safe coping mechanisms opposed to seeking comfort from drugs or alcohol when feeling overwhelmed, stressed or anxious. CANDIEC expressed understanding and agreement. ? Family History:?CANDICE states that her mother is an alcoholic. CANDICE reports that she has struggled with alcoholism ever since she can remember. CANDICE states that due to this issue she is not connected to her mom and does not rely on her to help her with her children. ? Drug Screens: ??No drug screens observed while completing chart review. Family/Social Stressors:? CANDICE denies any issues, concerns or stressors at this time. Emil notes that CANDICE's three older children are from a former relationship, to which she is currently still to at this time. CANDICE states that she and her ex, even though are still legally are not together. She is not able to get due to being . CANDICE states that she and her ex have intentions of starting process once baby is born. Support Systems: CANDICE states that MIKAYLA and her best friend Connie are her biggest supports at this time. Depression/Shaken Baby/Safe Sleeping:? Emil educated CANDICE and MIKAYLA on signs and symptoms of baby blues and depression and anxiety. CANDICE states that she is familiar with these terms, and states that she is thankful that she never struggled with either of these problems when she had her other children. MOB states that she has discussed these symptoms with FOB so that he is able to recognize if MOB were to struggle at any point during this period. FOB states that if MOB were to have a hard time he would be able to recognize that, and thinks that he would know how to help her. MOB states that during her he felt as though her mental health was managed, and now that her baby has been born she feels really good and is happy that baby is healthy. Sw educated parents on shaken baby prevention and ABCs of safe sleep, parents express understanding. ASSESSMENT:? MOB and baby admitted following labor and delivery of . MOB with mental health history of anxiety, which she reports that she feels managed with the prescription of her Wellbutrin prescribed by her primary care provider. CANDICE is currently still to her , whom she has three older children with. They have been but not able to file for divorce due to MOB getting after engaging in relationship with FOB a year ago. MOB and FOB live together and report to have all necessary baby supplies obtained. MOB reports to having support in FOB and a best friend. MOB and FOB welcoming of meeting with . Parents answered questions asked during completion of assessment, however did not elaborate answers, and conversation did not flow naturally. MOB eye contact felt forced and was not consistent. FOB offered calming presence and was observed to be attentive to MOB. MOB was sitting on couch holding baby and was attentive and loving to him. PLAN:? No other services requested or indicated. MOB and baby to be discharged when medically ready. Parents were provided literature regarding: signs and symptoms of baby blues and mood and anxiety disorders, Help Me Grow, shaken baby prevention, ABCs of safe sleep and a list of county resources that are available for them should any needs present themselves. Leonel Blair, ANIMAL PATHOLOGY TEACHER, ACCOUNTS EXECUTIVE
[2024-12-22 10:25] VITALS: PULSE 70
[2024-12-22] MEDS: buPROPion (XL) 300 MG TABLET.XL PO (10:25)
[2024-12-22] MEDS: Metoprolol(XL)Succ 50 MG Tablet PO (10:25)
== END 2024-12-22 10:45 | disposition home or self-care (01) | DRG 560 ==
LOC: WPOUT 14:47 → WP 14:47
PROVIDERS: Admitting Provider Obstetrics & Gynecology; Referring Provider Obstetrics & Gynecology; Visit Provider Obstetrics & Gynecology
DX: O36.8130 Decreased fetal movements, third trimester, not applicable or unspecified (principal); Z37.0 Single live birth; O36.5930 Maternal care for other known or suspected poor fetal growth, third trimester, not applicable or unspecified; O99.214 Obesity complicating childbirth; O76 Abnormality in fetal heart rate and rhythm complicating labor and delivery; O99.02 Anemia complicating childbirth; Z3A.37 37 weeks gestation of pregnancy; O99.892 Other specified diseases and conditions complicating childbirth; R00.0 Tachycardia, unspecified; O69.81X0 Labor and delivery complicated by cord around neck, without compression, not applicable or unspecified; Z20.828 Contact with and (suspected) exposure to other viral communicable diseases; Z79.899 Other long term (current) drug therapy; Z98.84 Bariatric surgery status; Z87.59 Personal history of other complications of pregnancy, childbirth and the puerperium
CPT/HCPCS: 59025; 59050; 84112; 85025; 86780; 86850; 86900; 86901; 99221; G0378